=== PATIENT | female | born 1935 | race Caucasian/White ===

== ENCOUNTER → 2017-10-11 15:15 | Outpatient (REF) | payer MEDICARE, SELFPAY ==
[2017-10-11 15:42] LABS: COMMENT (LAB VIEW ONLY) 95.92 mg/dL; Microalb ug/mg Crea 6.2 ug/mg Cr
== END ==
LOC: LBN 15:15
PROVIDERS: PCP Nurse Practitioner; Visit Provider Nurse Practitioner
DX: E11.40 Type 2 diabetes mellitus with diabetic neuropathy, unspecified (principal); I10 Essential (primary) hypertension
CPT/HCPCS: 82043; 82570

== ENCOUNTER 2017-10-12 11:04 | Outpatient (RCR) | payer MEDICARE, SELFPAY | END 2017-10-14 23:59 | disposition home or self-care (01) | LOC: CR 11:04 | PROVIDERS: PCP Nurse Practitioner; Visit Provider Family Medicine | DX: I25.10 Atherosclerotic heart disease of native coronary artery without angina pectoris (principal); Z95.5 Presence of coronary angioplasty implant and graft; Z51.89 Encounter for other specified aftercare | CPT/HCPCS: S9472 ==

== ENCOUNTER 2017-11-11 13:19 | Outpatient (RCR) | payer MEDICARE, SELFPAY | END 2017-11-13 23:59 | disposition home or self-care (01) | LOC: CR 13:19 | PROVIDERS: PCP Nurse Practitioner; Visit Provider Family Medicine | DX: I25.10 Atherosclerotic heart disease of native coronary artery without angina pectoris (principal); Z95.5 Presence of coronary angioplasty implant and graft; Z51.89 Encounter for other specified aftercare | CPT/HCPCS: S9472 ==

== ENCOUNTER 2018-03-15 15:16 | Outpatient (CLI) | payer MEDICARE, SELFPAY ==
--- NOTE | 2018-03-15 14:15 | DI.RAD_ITS ---
SYMPTOMS/DIAGNOSIS: RIGHT KNEE PAIN, SWELLING, EFFUSION, M25.461, M25.561 RIGHT KNEE: Five views were obtained. There is narrowing of the medial tibiofemoral cartilaginous joint space. There is hypertrophic spurring of the bones of the knee, most prominent at the medial tibiofemoral joint and the superior patellar pole. No other significant bony abnormality seen. CONCLUSION: DJD, predominantly involving medial tibiofemoral joint.
== END 2018-03-15 15:36 ==
PROVIDERS: PCP Nurse Practitioner; Visit Provider Nurse Practitioner
DX: M25.561 Pain in right knee (principal); M25.461 Effusion, right knee; M17.11 Unilateral primary osteoarthritis, right knee
CPT/HCPCS: 73564

== ENCOUNTER → 2018-04-05 10:10 | Outpatient (BNVA) | payer MEDICARE, SELFPAY | PROVIDERS: PCP Nurse Practitioner; Referring Provider Nurse Practitioner; Visit Provider Orthopaedic Surgery | DX: M17.11 Unilateral primary osteoarthritis, right knee (principal); J44.9 Chronic obstructive pulmonary disease, unspecified; Z87.891 Personal history of nicotine dependence | CPT/HCPCS: 20610; 99204; 99214; J1040 ==

== ENCOUNTER 2018-04-11 09:58 | Outpatient (CLI) | payer MEDICARE, SELFPAY ==
[2018-04-11 10:19] LABS: HCT 36.8 % (36.0-46.0); HGB 12.4 g/dL (12.0-15.5); Mean Corp. HGB Concentration 33.7 g/dL (32.0-36.0); Mean Corpuscular Hemoglobin 29.7 pg (27.0-33.0); Mean Corpuscular Volume 88.2 fL (80-95); Platelet Count 194 x1000/uL (130-400); RBC 4.17 m/cumm (4.00-5.20); RBC Distribution Width 13.3 % (11.7-14.6); White Blood Cell Count 6.23 k/cumm (4.4-10.8)
[2018-04-11 11:33] LABS: ALT 37 U/L (12-78); AST 14 U/L (15-37); Albumin 3.4 g/dL (3.4-5.0); Alkaline Phosphatase 103 U/L (46-116); Anion Gap 8.2 mmol/L (3-11); BUN 11 mg/dL (7-18); Bilirubin, Total 0.5 mg/dL (0.2-1.0); CO2 30.8 mmol/L (21.0-32.0); CREATININE 1.05 mg/dL (0.55-1.02); Calcium 8.8 mg/dL (8.5-10.1); Chloride 105 mmol/L (98-107); Cholesterol 155 mg/dL (50-200); Glucose 97 mg/dL (70-100); HDL Cholesterol 36 mg/dL (40-60); LDL CHOLESTEROL 80 mg/dL (<100); Potassium 3.9 mmol/L (3.5-5.1); Sodium 144 mmol/L (136-145); Total Protein 6.6 g/dL (6.4-8.2); Triglyceride 192 mg/dL (30-150); Vitamin B12 489 pg/mL (193-986)
== END 2018-04-11 10:18 ==
PROVIDERS: PCP Nurse Practitioner; Visit Provider Nurse Practitioner
DX: E78.5 Hyperlipidemia, unspecified (principal); I10 Essential (primary) hypertension; E11.40 Type 2 diabetes mellitus with diabetic neuropathy, unspecified; G62.89 Other specified polyneuropathies
CPT/HCPCS: 36415; 80053; 80061; 83721; 85027; 82607

== ENCOUNTER 2018-05-03 09:13 | Outpatient (CLI) | payer MEDICARE, SELFPAY ==
--- NOTE | 2018-05-03 09:49 | DI.RAD_ITS ---
SYMPTOM/DIAGNOSIS: COUGH, SOB, NAUSEA, R11.0, R05 PA AND LATERAL CHEST: Comparison is made with 04/04/17. Heart size and pulmonary vasculature are within normal limits. There is unchanged elevation of the right hemidiaphragm. The lungs are clear. No effusions or pneumothoraces are identified. Age appropriate degenerative changes are seen in the spine. IMPRESSION: No acute pulmonary process.
== END 2018-05-03 09:33 ==
PROVIDERS: PCP Nurse Practitioner; Visit Provider Nurse Practitioner
DX: R05 Cough (principal); R06.02 Shortness of breath; R11.0 Nausea
CPT/HCPCS: 71046

== ENCOUNTER → 2018-06-07 10:46 | Outpatient (BNVA) | payer MEDICARE, SELFPAY | PROVIDERS: PCP Nurse Practitioner; Referring Provider Nurse Practitioner; Visit Provider Orthopaedic Surgery | DX: M17.11 Unilateral primary osteoarthritis, right knee (principal); I10 Essential (primary) hypertension; E11.40 Type 2 diabetes mellitus with diabetic neuropathy, unspecified; Z79.4 Long term (current) use of insulin; J44.9 Chronic obstructive pulmonary disease, unspecified; Z87.891 Personal history of nicotine dependence | CPT/HCPCS: 99213 ==

== ENCOUNTER 2018-06-12 08:09 | Inpatient (IN) | payer MEDICARE, SELFPAY ==
[2018-06-12] VITALS (30 sets, daily range): BP systolic 126–191; BP diastolic 56–98; PULSE 60–102; RESP 17–22; TEMP 36–37.4; O2SAT 94–100
--- NOTE | 2018-06-12 08:30 | W.ED.GENAD ---
Discharge Plan Disposition Condition: Improving Discharge Details Chief Complaint: Abd Prob Admit Date/Time: 06/12/18 11:57 Admit Provider: Jona Dickey Attending Provider: Jona Dickey Primary Care Provider: Savanna Guillen ED Provider: Essence Peterson Discharge Instructions Activity:: Activity as Tolerated Equipment/Supplies:: No Equipment Needed Diet:: Carb Counting Discharge Orders Discharge Orders: Discharge Order (Routine); Ordered 06/15/18 Ordered By: Petra Borrego Discharge Data Discharge Date/Time-TO BE ENTERED AT DEPARTURE: 06/12/18 12:43 Medical Decision Making Sonia Quiroz is an 82-year-old woman with a history of urinary incontinence status post placement of bladder stimulator unit, coronary artery disease, GERD, insulin dependent diabetes, hypertension, chronic kidney disease who presented to the emergency department with lower abdominal pain and rectal bleeding. On exam patient is well and nontoxic appearing. She has mild tenderness across the lower abdomen without peritoneal signs. She has a small amount of gross blood (Hemoccult positive) and an otherwise normal rectal exam. Concern for rectal bleeding of unknown etiology, colitis versus diverticulitis versus other, metabolic/lyte derangement, anemia. Exam/history is not this with mesenteric ischemia, sepsis, upper GI bleed at this time. Plan for screening labs, CT abdomen pelvis, telemetry. Will monitor and reassess. Hemoglobin okay. CT shows colitis versus diverticulitis per radiology. I discussed the patient with Dr. Jaramillo, who relayed that she felt most likely diagnosis infectious colitis, imaging results, patient presentation not consistent with ischemic colitis. No surgical intervention at this time, recommended IV antibiotics. Patient penicillin allergic, plan for Levaquin and Flagyl as opposed to Unasyn. Plan for admission. Patient is amenable to the plan. Clinical Impression: colitis, JEMIMA Disposition: [facility] inpatient Medical Records Medical records reviewed: Yes I reviewed the patient's medical records. Imaging Data Radiologic Study: Radiologist's impression: ABDOMEN AND PELVIC CT; CT scan of the abdomen and pelvis was performed without intravenous or oral contrast material. Comparison is made with 11/04/16. The visualized lung bases show no acute abnormality. Lack of IV contrast does limit evaluation of the abdominal and pelvic organs. The unenhanced liver is grossly unremarkable. The gallbladder is negative. No biliary ductal dilatation is seen. The pancreas, spleen, adrenal glands, kidneys, ureters and bladder are unremarkable. The reproductive organs show no acute abnormality. There is diverticulosis seen in the descending and sigmoid colon. There is bowel wall thickening and pericolonic inflammatory change seen in the distal transverse colon and proximal and mid descending colon consistent with colitis. Diverticulitis cannot be excluded. The remainder of the bowel is unremarkable. No findings to suggest an acute appendicitis are present. There is atherosclerosis of the abdominal aorta but no aneurysmal dilatation is seen. No focal fluid collection is seen to suggest an abscess. No significant abdominal or pelvic adenopathy or ascites or pneumoperitoneum is present. There is a battery pack in the soft tissues of the left flank. Degenerative changes are seen in the spine. IMPRESSION: Bowel wall thickening and pericolonic changes seen in the distal transverse colon and proximal descending colon consistent with colitis. Diverticula are noted in the region and acute diverticulitis cannot be excluded. No abscess or free air is seen. The findings were discussed with the ER on the date of the examination. Lab Data Lab results reviewed: Yes I reviewed the patient's lab results. HPI General Mode of arrival: ambulatory. Date/Time Provider Initiated Documentation: 06/12/18 08:30. Limitations to Documentation: no limitations. Information obtained by: patient, RN notes reviewed and old records reviewed. HPI Narrative: Sonia Quiroz is an 82-year-old woman with a history of urinary incontinence status post placement of bladder stimulator unit, coronary artery disease, GERD, insulin dependent diabetes, hypertension, chronic kidney disease presenting to the emergency department with lower abdominal pain and rectal bleeding. Patient reports that late last night she developed pain across her lower abdomen. She had several episodes of vomiting in the night with yellow emesis. Patient also developed some blood in her stool during a bowel movement last night, and then had several episodes where she felt she needed to have a BM and passed only bright red blood with small clots. Patient reports that her pain right now is mild. She has no rectal pain. She has never had similar rectal bleeding in the past. She takes Plavix and aspirin, no other blood thinners. Has been eating and drinking as usual, although she did have fish yesterday and was concerned that symptoms may represent gastroenteritis. No other pain, no fevers, no shortness of breath, no cough. Feels otherwise in her usual state of health. Related Data Home Medications Medication Instructions Recorded Confirmed blood-glucose meter [OneTouch #1 kit 08/15/15 06/22/18 Ultra2] nitroglycerin [Nitrostat] 0.4 mg SUBLINGUAL Q5 MIN PRN X3 08/29/17 06/22/18 PRN #1 bottle nortriptyline 10 mg capsule 10 mg PO HS #90 cap 02/13/18 06/26/18 albuterol sulfate HFA 90 1 - 2 puff INHALATION Q4H PRN #1 03/28/18 06/22/18 mcg/actuation aerosol inhaler inhaler lovastatin 10 mg tablet 10 mg PO DAILY #90 tab-cap 04/17/18 06/26/18 oxybutynin chloride ER 5 mg 5 mg PO DAILY #90 tab 04/17/18 06/26/18 tablet,extended release 24 hr pen needle, diabetic 32 gauge x #90 box 05/18/18 06/22/18 ranitidine 150 mg tablet 150 mg PO BID #180 tab-cap 05/29/18 06/22/18 aspirin 81 mg tablet,delayed 81 mg PO DAILY 06/22/18 06/26/18 release blood sugar diagnostic strips #100 each 06/22/18 06/22/18 insulin glargine (U-100) 100 38 unit SUB-Q HS ml 06/22/18 06/26/18 unit/mL (3 mL) subcutaneous pen lancets #100 ea 06/22/18 06/22/18 lisinopril 5 mg tablet 5 mg PO DAILY 3 Days #90 tab-cap 06/22/18 06/26/18 metoprolol tartrate 25 mg tablet 25 mg PO BID #180 tab 06/22/18 06/22/18 pantoprazole 40 mg tablet,delayed 40 mg PO DAILY #90 tab 06/22/18 06/22/18 release pregabalin 100 mg capsule 100 mg PO BID #60 cap 06/22/18 06/22/18 Previous Rx's Medication Instructions Recorded nortriptyline 10 mg capsule 10 mg PO HS #90 cap 02/13/18 albuterol sulfate HFA 90 1 - 2 puff INHALATION Q4H PRN #1 03/28/18 mcg/actuation aerosol inhaler inhaler lovastatin 10 mg tablet 10 mg PO DAILY #90 tab-cap 04/17/18 oxybutynin chloride ER 5 mg 5 mg PO DAILY #90 tab 04/17/18 tablet,extended release 24 hr pen needle, diabetic 32 gauge x #90 box 05/18/18 ranitidine 150 mg tablet 150 mg PO BID #180 tab-cap 05/29/18 blood sugar diagnostic strips #100 each 06/22/18 lancets #100 ea 06/22/18 lisinopril 5 mg tablet 5 mg PO DAILY 3 Days #90 tab-cap 06/22/18 metoprolol tartrate 25 mg tablet 25 mg PO BID #180 tab 06/22/18 pantoprazole 40 mg tablet,delayed 40 mg PO DAILY #90 tab 06/22/18 release pregabalin 100 mg capsule 100 mg PO BID #60 cap 06/22/18 Allergies Allergy/AdvReac Type Severity Reaction Status Date / Time Penicillins Allergy Severe skin rash Verified 06/26/18 06:27 atorvastatin AdvReac Intermediate muscle Verified 06/26/18 06:27 aches metformin AdvReac Intermediate Diarrhea Verified 06/26/18 06:27 General Stated Complaint: Abd Prob RAFAELA: 3 Review of Systems Review of Systems Constitutional: denies fevers Eyes: denies eye pain ENT: denies facial pain, dental pain, sore throat Cardiovascular: denies chest pain, edema Respiratory: denies SOB, cough GI: reports abdominal pain, vomiting, BRBPR, denies melena, diarrhea, constipation : denies flank pain MSK: denies back pain, neck pain, arthralgias, myalgias Skin: denies rash Neuro: denies headaches, numbness, weakness PFSH Medical History Heart murmur (Acute) History of rheumatic fever (Acute) Tendonitis of left rotator cuff (Acute) COPD (chronic obstructive pulmonary disease) Rectal bleed (Acute) Colitis (Acute) JEMIMA (acute kidney injury) (Acute) Primary osteoarthritis of right knee (Chronic) Urinary incontinence (Acute 06/05/14) Tinnitus of both ears (Acute 09/26/14) Syncope (Acute 05/15/14) Skin lesion of left ear (Acute 10/31/15) Sensorineural hearing loss, bilateral (Acute 09/13/13) Sciatica (Acute 02/19/11) Primary osteoarthritis involving multiple joints (Acute 10/30/14) Positive cardiac stress test (Acute 06/30/17) Osteopenia (Acute 02/19/11) Hyperlipidemia (Acute 02/19/11) Gastroesophageal reflux disease (Acute 02/19/11) Gastritis, chronic (Acute 12/13/16) Fibromyalgia (Acute 12/18/14) Essential hypertension (Chronic 07/27/12) Edema (Acute 09/05/15) Diverticulitis of colon (Acute 02/19/11) Diabetic neuropathy (Chronic 01/24/14) Diabetes mellitus with neuropathy (Chronic) Atherosclerosis of [place] coronary artery of [place] heart with angina pectoris (Acute) Angina at rest (Acute 02/19/11) CAD (coronary artery disease) (Chronic) Old myocardial infarction (Chronic) GERD (gastroesophageal reflux disease) (Chronic) Type 2 diabetes mellitus (Chronic) Diabetic neuropathy (Chronic) H/O diverticulitis of colon (Chronic) Hypertension (Chronic) Hearing loss of both ears (Chronic) Tinnitus (Chronic) Osteoporosis (Chronic) Sciatica (Chronic) Chest pain (Acute 04/28/14) Syncope (Acute 04/28/14) Chronic kidney disease, stage III (moderate) (Chronic) Surgical History S/P right knee arthroscopy (Acute) Extraction of cataract Colonoscopy - MAC (12/13/16) Coronary Stent (07/12/17) EGD - MAC (12/13/16) Tonsillectomy Postsurgical percutaneous transluminal coronary angioplasty status (Chronic) Family History Mother No problems noted. 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 Working smoke detector in home: Yes Fire extinguisher in home: Yes Carbon monox detector in home: Yes Do you feel safe in your relationship?: Yes Exam Narrative Exam Narrative: Constitutional: well and [id number], pleasant, conversing normally HENT: head atraumatic/normocephalic/normal inspection, mucous membranes moist Eyes: conjunctiva normal, sclera normal, pupils 3mm b/l Neck: no stridor, normal ROM, trachea midline Chest: normal inspection Resp: normal work of breathing, LCTAB Cardio: normal rate, normal rhythm, no murmur appreciated GI: abdomen soft, mild tenderness across the lower abdomen, no rebound or guarding, non-distended, small amount of gross blood on rectal exam Back: normal inspection, no rash Skin: warm, dry, normal color, no rash Neuro: alert, not altered, grossly non-focal, normal tone Ext: no edema Psych: normal mood, normal affect, normal behavior Course Vital Signs Temperature 36 C L 06/12/18 08:18 Pulse 61 06/12/18 08:18 Respiratory Rate 21 06/12/18 08:18 Blood Pressure 181/56 H 06/12/18 08:18 Pulse Oximetry 95 06/12/18 08:18 Temperature 36 C L 06/12/18 08:18 Temperature Source Skin 06/12/18 08:18 Pulse 61 06/12/18 08:18 Respiratory Rate 21 06/12/18 08:18 Respiratory Effort Non-Labored 06/12/18 08:18 Blood Pressure 181/56 H 06/12/18 08:18 Blood Pressure Position Sitting 06/12/18 08:18 Pulse Oximetry 95 06/12/18 08:18 Oxygen Delivery Method Room Air 06/12/18 08:18 Oxygen Flow Rate 0 06/12/18 08:18 Pain Level 5 06/12/18 08:18
--- NOTE | 2018-06-12 08:42 | DI.CT_ITS ---
SYMPTOM/DIAGNOSIS: ABD PAIN, VOMITING ABDOMEN AND PELVIC CT; CT scan of the abdomen and pelvis was performed without intravenous or oral contrast material. Comparison is made with 11/04/16. The visualized lung bases show no acute abnormality. Lack of IV contrast does limit evaluation of the abdominal and pelvic organs. The unenhanced liver is grossly unremarkable. The gallbladder is negative. No biliary ductal dilatation is seen. The pancreas, spleen, adrenal glands, kidneys, ureters and bladder are unremarkable. The reproductive organs show no acute abnormality. There is diverticulosis seen in the descending and sigmoid colon. There is bowel wall thickening and pericolonic inflammatory change seen in the distal transverse colon and proximal and mid descending colon consistent with colitis. Diverticulitis cannot be excluded. The remainder of the bowel is unremarkable. No findings to suggest an acute appendicitis are present. There is atherosclerosis of the abdominal aorta but no aneurysmal dilatation is seen. No focal fluid collection is seen to suggest an abscess. No significant abdominal or pelvic adenopathy or ascites or pneumoperitoneum is present. There is a battery pack in the soft tissues of the left flank. Degenerative changes are seen in the spine. IMPRESSION: Bowel wall thickening and pericolonic changes seen in the distal transverse colon and proximal descending colon consistent with colitis. Diverticula are noted in the region and acute diverticulitis cannot be excluded. No abscess or free air is seen. The findings were discussed with the ER on the date of the examination.
--- NOTE | 2018-06-12 08:49 | ED.GENADUL_ITS ---
Discharge Plan Disposition Condition: Improving Discharge Details Chief Complaint: Abd Prob Admit Date/Time: 06/12/18 11:57 Admit Provider: Jona Dickey Attending Provider: Jona Dickey Primary Care Provider: Savanna Guillen ED Provider: Essence Peterson Discharge Instructions Activity:: Activity as Tolerated Equipment/Supplies:: No Equipment Needed Diet:: Carb Counting Discharge Orders Discharge Orders: Discharge Order (Routine); Ordered 06/15/18 Ordered By: Petra Borrego Discharge Data Discharge Date/Time-TO BE ENTERED AT DEPARTURE: 06/12/18 12:43 Medical Decision Making Sonia Quiroz is an 82-year-old woman with a history of urinary incontinence status post placement of bladder stimulator unit, coronary artery disease, GERD, insulin dependent diabetes, hypertension, chronic kidney disease who presented to the emergency department with lower abdominal pain and rectal bleeding. On exam patient is well and nontoxic appearing. She has mild tenderness across the lower abdomen without peritoneal signs. She has a small amount of gross blood (Hemoccult positive) and an otherwise normal rectal exam. Concern for rectal bleeding of unknown etiology, colitis versus diverticulitis versus other, metabolic/lyte derangement, anemia. Exam/history is not this with mesenteric i schemia, sepsis, upper GI bleed at this time. Plan for screening labs, CT abdomen pelvis, telemetry. Will monitor and reassess. Hemoglobin okay. CT shows colitis versus diverticulitis per radiology. I discussed the patient with Dr. Jaramillo, who relayed that she felt most likely diagnosis infectious colitis, imaging results, patient presentation not consistent with ischemic colitis. No surgical intervention at this time, recommended IV antibiotics. Patient penicillin allergic, plan for Levaquin and Flagyl as opposed to Unasyn. Plan for admission. Patient is amenable to the plan. Clinical Impression: colitis, JEMIMA Disposition: [facility] inpatient Medical Records Medical records reviewed: Yes I reviewed the patient's medical records. Imaging Data Radiologic Study: Radiologist's impression: ABDOMEN AND PELVIC CT; CT scan of the abdomen and pelvis was performed without intravenous or oral contrast material. Comparison is made with 11/04/16. The visualized lung bases show no acute abnormality. Lack of IV contrast does limit evaluation of the abdominal and pelvic organs. The unenhanced liver is grossly unremarkable. The gallbladder is negative. No biliary ductal dilatation is seen. The pancreas, spleen, adrenal glands, kidneys, ureters and bladder are unremarkable. The reproductive organs show no acute abnormality. There is diverticulosis seen in the descending and sigmoid colon. There is bowel wall thickening and pericolonic inflammatory change seen in the distal transverse colon and proximal and mid descending colon consistent with colitis. Diverticulitis cannot be excluded. The remainder of the bowel is unremarkable. No findings to suggest an acute appendicitis are present. There is atherosclerosis of the abdominal aorta but no aneurysmal dilatation is seen. No focal fluid collection is seen to suggest an abscess. No significant abdominal or pelvic adenopathy or ascites or pneumoperitoneum is present. There is a battery pack in the soft tissues of the left flank. Degenerative changes are seen in the spine. IMPRESSION: Bowel wall thickening and pericolonic changes seen in the distal transverse colon and proximal descending colon consistent with colitis. Diverticula are noted in the region and acute diverticulitis cannot be excluded. No abscess or free air is seen. The findings were discussed with the ER on the date of the examination. Lab Data Lab results reviewed: Yes I reviewed the patient's lab results. HPI General Mode of arrival: ambulatory . Date/Time Provider Initiated Documentation: 06/12/18 08:30 . Limitations to Documentation: no limitations . Information obtained by: patient, RN notes reviewed and old records reviewed . HPI Narrative: Sonia Quiroz is an 82-year-old woman with a history of urinary incontinence status post placement of bladder stimulator unit, coronary artery disease, GERD, insulin dependent diabetes, hypertension, chronic kidney disease presenting to the emergency department with lower abdominal pain and rectal bleeding. Patient reports that late last night she developed pain across her lower abdomen. She had several episodes of vomiting in the night with yellow emesis. Patient also developed some blood in her stool during a bowel movement last night, and then had several episodes where she felt she needed to have a BM and passed only bright red blood with small clots. Patient reports that her pain right now is mild. She has no rectal pain. She has never had similar rectal bleeding in the past. She takes Plavix and aspirin, no other blood thinners. Has been eating and drinking as usual, although she did have fish yesterday and was concerned that symptoms may represent gastroenteritis. No other pain, no fevers, no shortness of breath, no cough. Feels otherwise in her usual state of health. Related Data Home Medications Medication Instructions Recorded Confirmed blood-glucose meter [OndoreTouch #1 kit 08/15/15 06/22/18 Ultra2] nitroglycerin [Nitrostat] 0.4 mg SUBLINGUAL Q5 MIN PRN X3 08/29/17 06/22/18 PRN #1 bottle nortriptyline 10 mg capsule 10 mg PO HS #90 cap 02/13/18 06/26/18 albuterol sulfate HFA 90 1 - 2 puff INHALATION Q4H PRN #1 03/28/18 06/22/18 mcg/actuation aerosol inhaler inhaler lovastatin 10 mg tablet 10 mg PO DAILY #90 tab-cap 04/17/18 06/26/18 oxybutynin chloride ER 5 mg 5 mg PO DAILY #90 tab 04/17/18 06/26/18 tablet,extended release 24 hr pen needle, diabetic 32 gauge x #90 box 05/18/18 06/22/18 ranitidine 150 mg tablet 150 mg PO BID #180 tab-cap 05/29/18 06/22/18 aspirin 81 mg tablet,delayed 81 mg PO DAILY 06/22/18 06/26/18 release blood sugar diagnostic strips #100 each 06/22/18 06/22/18 insulin glargine (U-100) 100 38 unit SUB-Q HS ml 06/22/18 06/26/18 unit/mL (3 mL) subcutaneous pen lancets #100 ea 06/22/18 06/22/18 lisinopril 5 mg tablet 5 mg PO DAILY 3 Days #90 tab-cap 06/22/18 06/26/18 metoprolol tartrate 25 mg tablet 25 mg PO BID #180 tab 06/22/18 06/22/18 pantoprazole 40 mg tablet,delayed 40 mg PO DAILY #90 tab 06/22/18 06/22/18 release pregabalin 100 mg capsule 100 mg PO BID #60 cap 06/22/18 06/22/18 Previous Rx's Medication Instructions Recorded nortriptyline 10 mg capsule 10 mg PO HS #90 cap 02/13/18 albuterol sulfate HFA 90 1 - 2 puff INHALATION Q4H PRN #1 03/28/18 mcg/actuation aerosol inhaler inhaler lovastatin 10 mg tablet 10 mg PO DAILY #90 tab-cap 04/17/18 oxybutynin chloride ER 5 mg 5 mg PO DAILY #90 tab 04/17/18 tablet,extended release 24 hr pen needle, diabetic 32 gauge x #90 box 05/18/18 ranitidine 150 mg tablet 150 mg PO BID #180 tab-cap 05/29/18 blood sugar diagnostic strips #100 each 06/22/18 lancets #100 ea 06/22/18 lisinopril 5 mg tablet 5 mg PO DAILY 3 Days #90 tab-cap 06/22/18 metoprolol tartrate 25 mg tablet 25 mg PO BID #180 tab 06/22/18 pantoprazole 40 mg tablet,delayed 40 mg PO DAILY #90 tab 06/22/18 release pregabalin 100 mg capsule 100 mg PO BID #60 cap 06/22/18 Allergies Allergy/AdvReac Type Severity Reaction Status Date / Time Penicillins Allergy Severe skin rash Verified 06/26/18 06:27 atorvastatin AdvReac Intermediate muscle Verified 06/26/18 06:27 aches metformin AdvReac Intermediate Diarrhea Verified 06/26/18 06:27 General Stated Complaint: Abd Prob RAFAELA: 3 Review of Systems Review of Systems Constitutional: denies fevers Eyes: denies eye pain ENT: denies facial pain, dental pain, sore throat Cardiovascular: denies chest pain, edema Respiratory: denies SOB, cough GI: reports abdominal pain, vomiting, BRBPR, denies melena, diarrhea, constipation : denies flank pain MSK: denies back pain, neck pain, arthralgias, myalgias Skin: denies rash Neuro: denies headaches, numbness, weakness PFSH Medical History Heart murmur (Acute) History of rheumatic fever (Acute) Tendonitis of left rotator cuff (Acute) COPD (chronic obstructive pulmonary disease) Rectal bleed (Acute) Colitis (Acute) JEMIMA (acute kidney injury) (Acute) Primary osteoarthritis of right knee (Chronic) Urinary incontinence (Acute 06/05/14) Tinnitus of both ears (Acute 09/26/14) Syncope (Acute 05/15/14) Skin lesion of left ear (Acute 10/31/15) Sensorineural hearing loss, bilateral (Acute 09/13/13) Sciatica (Acute 02/19/11) Primary osteoarthritis involving multiple joints (Acute 10/30/14) Positive cardiac stress test (Acute 06/30/17) Osteopenia (Acute 02/19/11) Hyperlipidemia (Acute 02/19/11) Gastroesophageal reflux disease (Acute 02/19/11) Gastritis, chronic (Acute 12/13/16) Fibromyalgia (Acute 12/18/14) Essential hypertension (Chronic 07/27/12) Edema (Acute 09/05/15) Diverticulitis of colon (Acute 02/19/11) Diabetic neuropathy (Chronic 01/24/14) Diabetes mellitus with neuropathy (Chronic) Atherosclerosis of [place] coronary artery of [place] heart with angina pectoris (Acute) Angina at rest (Acute 02/19/11) CAD (coronary artery disease) (Chronic) Old myocardial infarction (Chronic) GERD (gastroesophageal reflux disease) (Chronic) Type 2 diabetes mellitus (Chronic) Diabetic neuropathy (Chronic) H/O diverticulitis of colon (Chronic) Hypertension (Chronic) Hearing loss of both ears (Chronic) Tinnitus (Chronic) Osteoporosis (Chronic) Sciatica (Chronic) Chest pain (Acute 04/28/14) Syncope (Acute 04/28/14) Chronic kidney disease, stage III (moderate) (Chronic) Surgical History S/P right knee arthroscopy (Acute) Extraction of cataract Colonoscopy - MAC (12/13/16) Coronary Stent (07/12/17) EGD - MAC (12/13/16) Tonsillectomy Postsurgical percutaneous transluminal coronary angioplasty status (Chronic) Family History Mother No problems noted. Father Heart disease Sister Breast cancer Social History Smoking/Tobacco Use Status: Former Tobacco Use Alcohol Intake: current Alcohol Intake frequency: holidays/special occasions only Drug use: Never Household members: other What type of physical activity do you participate in: none Seatbelt use: always Drive intox or ride w/intox line driver: No Working smoke detector in home: Yes Fire extinguisher in home: Yes Carbon monox detector in home: Yes Do you feel safe in your relationship?: Yes Exam Narrative Exam Narrative: Constitutional: well and [id number], pleasant, conversing normally HENT: head atraumatic/normocephalic/normal inspection, mucous membranes moist Eyes: conjunctiva normal, sclera normal, pupils 3mm b/l Neck: no stridor, normal ROM, trachea midline Chest: normal inspection Resp: normal work of breathing, LCTAB Cardio: normal rate, normal rhythm, no murmur appreciated GI: abdomen soft, mild tenderness across the lower abdomen, no rebound or guarding, non-distended, small amount of gross blood on rectal exam Back: normal inspection, no rash Skin: warm, dry, normal color, no rash Neuro: alert, not altered, grossly non-focal, normal tone Ext: no edema Psych: normal mood, normal affect, normal behavior Course Vital Signs Temperature 36 C L 06/12/18 08:18 Pulse 61 06/12/18 08:18 Respiratory Rate 21 06/12/18 08:18 Blood Pressure 181/56 H 06/12/18 08:18 Pulse Oximetry 95 06/12/18 08:18 Temperature 36 C L 06/12/18 08:18 Temperature Source Skin 06/12/18 08:18 Pulse 61 06/12/18 08:18 Respiratory Rate 21 06/12/18 08:18 Respiratory Effort Non-Labored 06/12/18 08:18 Blood Pressure 181/56 H 06/12/18 08:18 Blood Pressure Position Sitting 06/12/18 08:18 Pulse Oximetry 95 06/12/18 08:18 Oxygen Delivery Method Room Air 06/12/18 08:18 Oxygen Flow Rate 0 06/12/18 08:18 Pain Level 5 06/12/18 08:18
[2018-06-12 09:14] LABS: Abs Immature Grans 0.02 k/cumm (0.0-0.09); Absolute Basophil Count 0.03 k/cumm (0.0-0.2); Absolute Eosinophil Count 0.01 k/cumm (0.0-0.7); Absolute Lymphocyte Count 1.09 k/cumm (1.2-3.4); Absolute Monocyte Count 0.82 k/cumm (0.11-0.7); Absolute Neutrophil Count 10.59 k/cumm (1.2-6.7); Basophils % 0.2; Eosinophils % 0.1; HCT 39.5 % (36.0-46.0); HGB 13.6 g/dL (12.0-15.5); Immature Grans % 0.2; Lymphocytes % 8.7; Mean Corp. HGB Concentration 34.4 g/dL (32.0-36.0); Mean Corpuscular Hemoglobin 29.8 pg (27.0-33.0); Mean Corpuscular Volume 86.4 fL (80-95); Mean Platelet Volume 10.8 fL (8.0-11.0); Monocytes % 6.5; Neutrophils % 84.3; Platelet Count 194 x1000/uL (130-400); RBC 4.57 m/cumm (4.00-5.20); RBC Distribution Width 13.2 % (11.7-14.6); White Blood Cell Count 12.56 k/cumm (4.4-10.8)
[2018-06-12 09:22] LABS: Prothrombin Time 9.9 sec (9.3-11.0)
[2018-06-12 09:24] LABS: ALT 23 U/L (12-78); AST 19 U/L (15-37); Albumin 3.4 g/dL (3.4-5.0); Alkaline Phosphatase 117 U/L (46-116); Anion Gap 9.5 mmol/L (3-11); BUN 19 mg/dL (7-18); Bilirubin, Total 0.8 mg/dL (0.2-1.0); CO2 27.5 mmol/L (21.0-32.0); CREATININE 1.31 mg/dL (0.55-1.02); Chloride 100 mmol/L (98-107); Estimated GFR 38.97 (mL/min/1.73m2); Glucose 301 mg/dL (70-100); Potassium 4.6 mmol/L (3.5-5.1); Sodium 137 mmol/L (136-145); Total Protein 7.3 g/dL (6.4-8.2)
[2018-06-12 09:32] LABS: Bilirubin Negative (Negative); Blood Small (Negative); Clarity Clear; Glucose 500 mg/dL (Negative); Ketones Negative (Negative); Leukocyte Esterase Negative (Negative); Nitrite Negative (Negative); Specific Gravity 1.025 (1.005-1.025); Urobilinogen 0.2 EU/dL (Up TO 0.2); pH 5.5 (5-8)
[2018-06-12 09:47] LABS: Bacteria Rare HPF (Negative); C & S Indicated? No; Casts Negative LPF (Negative); Crystals Negative HPF (Negative); Epithelial Cells Few HPF (Negative); Mucus Moderate (Negative); WBC 0-2 HPF (0-5)
--- NOTE | 2018-06-12 11:34 | NUR.NOTE ---
Addendum entered by Karen Butts 06/12/18 11:36: aware Original Note: Pt felt like she had some rectal leaking while standing up in radiology ambulated to bathroom where she had significant bright red blood from the rectum stating it wouldn't stop Nursing Note:
[2018-06-12] MEDS: Metoprolol 25 MG TAB PO ×2 (12:03→23:38)
[2018-06-12 12:04] LABS: Lactate-non-spesis 3.4 mmol/l (0.6-1.4)
[2018-06-12] MEDS: levoFLOXacin 750 MG/150 ML BAG 100 MG IVPB (12:04)
[2018-06-12] MEDS: Insulin Aspart 300 UNITS/3 ML PEN SC ×2 (13:22→16:58)
[2018-06-12] MEDS: metroNIDAZOLE 500 MG/100 ML BAG 100 MG IVPB ×2 (13:24→21:56)
[2018-06-12] MEDS: SODIUM CHLORIDE 0.45% 1,000 ML 100 ML IV ×2 (13:25→23:14)
--- NOTE | 2018-06-12 16:32 | W.PM.HP.N ---
Date of service: 06/12/18 Time of Service: 16:33 Assessment and Plan (1) Colitis: Start date: 06/12/18 Start time: 16:58 Current visit: Yes Status: Acute Severe abdominal pain presents at 1 am with vomiting followed by bloody bowel movement and then bright red rectal bleeding. Ct of the abdomen reveals Bowel wall thickening and pericolonic changes seen in the distal transverse colon and proximal descending colon consistent with colitis. Diverticula are noted in the region and acute diverticulitis cannot be excluded. No abscess or free air is seen. She has been admitted to /s started on flagyl and levaquin wbc elevated without fever. Clear liquid diet initiated. Pain is minimal, plavix and aspirin held. IVF for hydration, monitor hemodynamic stability, h/h. (2) Rectal bleed: Start date: 06/12/18 Start time: 17:01 Current visit: Yes Status: Acute See above, monitor h/h and held plavix and asa. (3) Gastroesophageal reflux disease: Start date: 06/12/18 Start time: 17:02 Current visit: No Status: Acute Protonix po daily and zantac daily (4) Essential hypertension: Start date: 06/12/18 Start time: 17:03 Current visit: No Status: Acute Continue metoprolol (5) JEMIMA (acute kidney injury): Start date: 06/12/18 Start time: 17:04 Current visit: Yes Status: Acute Acute on chronic kidney disease. Elevated in the setting of infection and dehydration with elevated BUN. IVF with light hydration of 1/2 ns at 100 an hour. Continue to monitor status. (6) Type 2 diabetes mellitus: Start date: 06/12/18 Start time: 17:06 Current visit: No Status: Chronic Insulin dependent diabetic, currently on clear liquids AC HS sliding scale with half dose lantus. Continue to monitor. (7) Hyperlipidemia: Start date: 06/12/18 Start time: 17:07 Current visit: No Status: Acute Continue lovastatin (8) CAD (coronary artery disease): Start date: 06/12/18 Start time: 17:07 Current visit: No Status: Chronic History of RI with stent placement in 1999. Nitro as needed (9) DVT prophylaxis: Start date: 06/12/18 Start time: 17:09 Current visit: Yes Status: Acute Chemical prophylaxis is contraindicated in Rectal bleed. TEDs and SCDs for prophylaxis. History of Present Illness Chief Complaint: RECTAL BLEED, COLITIS Narrative: Mrs. Sonia Quiroz is an 82 y.o F with PMH of IDDM, HTN, CKD, CAD and urinary incontinence status post placement of bladder stimulator coming in today after waking up a 1 am with severe lower abdominal pain and rectal bleeding. She had several episodes of vomiting last night with yellow emesis. She developed blood with stool during a bowel movement last night and then had several episodes where she felt she had to have a BM and passed only bright red blood with small clots. She has never had rectal bleeding in the past. She does take plavix and aspirin but no other blood thinners. She was having mild pain in the emergency department. CT of the abdomen revealed bowel wall thickening and periclonic changes seen in the distal transverse colon and proximal descending colon consistent with colitis. Diverticula are noted in the region and acute diverticulitis cannot be excluded. No abscess or free air is seen. She has been asked to be admitted by our service, she will be admitted to M/S. Mrs Quiroz was found to have an elevated WBC in the ED without fever. BUN and creatinine where elevated at 19 and 1.31. Creatinine appears to be chronically elevated at between 1.05 and 1.23 with a slight bump at this admission we will give light hydration of 1/2 NS at 100 mph. Lactate is elevated at 3.4. She was started on levaquin and flagyl in the setting of colitis. Aspirin and plavix are held as she is having rectal bleeding. Protonix daily for GERD. Stool sample for c-diff, lactoferrin and fecal bacterial pathogens have been ordered. She is complaining of mild discomfort to abdomen. She is IDD and will have SSI coverage with a decreased lantus dose at night due to being on clears at this time. Labs will be monitored for h/h, cbc and chemistry. She denies nausea, vomiting at this time, chest pain, shortness of breath. Review of Systems Constitutional Reports system reviewed and no additional complaints, except as docu Eyes Reports system reviewed and no additional complaints, except as docu ENT Reports system reviewed and no additional complaints, except as docu Cardiovascular Reports system reviewed and no additional complaints, except as docu Respiratory Reports system reviewed and no additional complaints, except as docu Gastrointestinal Reports as per HPI, Reports melena and Reports cramping Genitourinary Reports system reviewed and no additional complaints, except [facility] Musculoskeletal Reports system reviewed and no additional complaints, except as [facility] Integumentary/Breasts Reports system reviewed and no additional complaints, except as [facility] Neurologic Reports system reviewed and no additional complaints, except as [facility] Psychiatric Reports system reviewed and no additional complaints, except as [facility] Endocrine Reports system reviewed and no additional complaints, except as [facility] Hematologic/Lymphatic Reports system reviewed and no additional complaints, except as [facility] Allergic/Immunologic Reports system reviewed and no additional complaints, except as [facility] PFSH Medical History Primary osteoarthritis of right knee (Chronic) Urinary incontinence (Acute 06/05/14) Tinnitus of both ears (Acute 09/26/14) Syncope (Acute 05/15/14) Skin lesion of left ear (Acute 10/31/15) Sensorineural hearing loss, bilateral (Acute 09/13/13) Sciatica (Acute 02/19/11) Primary osteoarthritis involving multiple joints (Acute 10/30/14) Positive cardiac stress test (Acute 06/30/17) Osteopenia (Acute 02/19/11) Hyperlipidemia (Acute 02/19/11) Gastroesophageal reflux disease (Acute 02/19/11) Gastritis, chronic (Acute 12/13/16) Fibromyalgia (Acute 12/18/14) Essential hypertension (Acute 07/27/12) Edema (Acute 09/05/15) Diverticulitis of colon (Acute 02/19/11) Diabetic neuropathy (Chronic 01/24/14) Diabetes mellitus with neuropathy (Chronic) Atherosclerosis of [place] coronary artery of [place] heart with angina pectoris (Acute) Angina at rest (Acute 02/19/11) CAD (coronary artery disease) (Chronic) Old myocardial infarction (Chronic) GERD (gastroesophageal reflux disease) (Chronic) Type 2 diabetes mellitus (Chronic) Diabetic neuropathy (Chronic) H/O diverticulitis of colon (Chronic) Hypertension (Chronic) Hearing loss of both ears (Chronic) Tinnitus (Chronic) Osteoporosis (Chronic) Sciatica (Chronic) Chest pain (Acute 04/28/14) Syncope (Acute 04/28/14) Chronic kidney disease, stage III (moderate) (Chronic) COPD (chronic obstructive pulmonary disease) Surgical History Postsurgical percutaneous transluminal coronary angioplasty status (Chronic) Arthroplasty of knee Colonoscopy - MAC (12/13/16) Coronary Stent (07/12/17) EGD - MAC (12/13/16) Extraction of cataract Tonsillectomy Family History Mother No problems noted. Father Heart disease Sister Breast cancer Social History Smoking/Tobacco Use Status: Former Tobacco Use Alcohol Intake: never Drug use: Never Household members: other What type of physical activity do you participate in: none Seatbelt use: always Drive intox or ride w/intox guard driver: No Working smoke detector in home: Yes Fire extinguisher in home: Yes Carbon monox detector in home: Yes Do you feel safe in your relationship?: Yes Meds Home Medications Medication Instructions Recorded Confirmed Type blood-glucose meter [OneTouch #1 kit 08/15/15 06/12/18 History Ultra2] metoprolol tartrate 25 mg PO BID tab 09/05/15 06/12/18 History loperamide [Imodium A-D] 4 mg PO TID PRN #20 cap 11/15/16 06/12/18 History zinc oxide 1 bill TOPICAL QID PRN #28 gm 11/15/16 06/12/18 History Onetouch Ultra Test Strips 1 ea MISCELLANEOUS DAILY #100 strip 08/01/17 06/12/18 Clinic lancets [Onetouch Lancets] #100 ea 08/01/17 06/12/18 Rx nitroglycerin [Nitrostat] 0.4 mg SUBLINGUAL Q5 MIN PRN X3 08/29/17 06/07/18 History PRN #1 bottle Varicella-Zoster Ge/As01b/Pf 50 mcg IM ONCE #1 kit 10/11/17 06/12/18 Clinic [Shingrix Vial Kit] aspirin 81 mg tablet,delayed 81 mg PO DAILY #90 tab 11/08/17 06/12/18 Rx release pantoprazole 40 mg tablet,delayed 40 mg PO DAILY #90 tab 12/27/17 06/12/18 Rx release nortriptyline 10 mg capsule 10 mg PO HS #90 cap 02/13/18 06/12/18 Rx albuterol sulfate HFA 90 1 - 2 puff INHALATION Q4H PRN #1 03/28/18 06/12/18 Rx mcg/actuation aerosol inhaler inhaler lisinopril 5 mg tablet 5 mg PO DAILY 3 Days #90 tab-cap 04/17/18 06/12/18 Rx lovastatin 10 mg tablet 10 mg PO DAILY #90 tab-cap 04/17/18 06/12/18 Rx oxybutynin chloride ER 5 mg 5 mg PO DAILY #90 tab 04/17/18 06/07/18 Rx tablet,extended release 24 hr pregabalin 100 mg capsule 100 mg PO BID #60 cap 04/17/18 06/12/18 Rx insulin glargine (U-100) 100 32 unit SUB-Q HS #5 ml MDD 50 04/25/18 06/12/18 Rx unit/mL (3 mL) subcutaneous pen promethazine 6.25 mg-codeine 10 5 ml PO Q4H PRN #118 ml 04/26/18 06/07/18 Rx mg/5 mL syrup hydrocodone 10 mg-chlorpheniramine 5 ml PO Q12H PRN #115 ml MDD 10ml 05/02/18 06/12/18 Rx 8 mg/5 mL oral susp extend.rel 12hr pen needle, diabetic 32 gauge x #90 box 05/18/18 06/12/18 Rx 5/32 ranitidine 150 mg tablet 150 mg PO BID #180 tab-cap 05/29/18 06/12/18 Rx Allergies Allergy/AdvReac Type Severity Reaction Status Date / Time Penicillins Allergy Severe skin rash Verified 06/12/18 08:21 atorvastatin AdvReac Intermediate muscle Verified 06/12/18 08:21 aches metformin AdvReac Intermediate Diarrhea Verified 06/12/18 08:21 Exam Const General: cooperative, healthy appearing and no acute distress [facility] Head: normal to inspection Eyes General: appearance normal, both eyes and all related structures Resp Effort & Inspection: normal respiratory effort and able to speak in complete sentences Auscultation: clear to auscultation bilaterally Cardio Jugular venous pressure: no JVD Palpation: normal PMI Rate: regular rate Rhythm: regular rhythm Heart Sounds: S1 normal and S2 normal GI Inspection: normal to inspection Palpation: soft Auscultation: hypoactive bowel sounds Other: rectal bleeding pain to abdomen, LLQ Skin General skin exam: no rashes or lesions noted Neuro General: alert, awake and oriented x3 Extrem General: normal to inspection Right upper extremity: normal to inspection Right lower extremity: normal to inspection Left lower extremity: normal to inspection Results Labs : 06/12/18 09:00 06/12/18 09:00 Laboratory Results - last 24 hr 06/12/18 06/12/18 06/12/18 09:00 09:00 09:00 WBC 12.56 H RBC 4.57 Hgb 13.6 Hct 39.5 MCV 86.4 MCH 29.8 MCHC 34.4 RDW 13.2 Plt Count 194 MPV 10.8 Immature Gran % 0.2 Neutrophils % 84.3 Lymphocytes % 8.7 Monocytes % 6.5 Eosinophils % 0.1 Basophils % 0.2 Absolute Neutrophils 10.59 H Absolute Lymphocytes 1.09 L Absolute Monocytes 0.82 H Absolute Eosinophils 0.01 Absolute Basophils 0.03 PT 9.9 INR 1.0 Sodium 137 Potassium 4.6 Chloride 100 Carbon Dioxide 27.5 Anion Gap 9.5 BUN 19 H Creatinine 1.31 H Estimated GFR/1.73 m2 38.97 Glucose 301 H Lactate Calcium 9.0 Total Bilirubin 0.8 AST 19 ALT 23 Alkaline Phosphatase 117 H Total Protein 7.3 Albumin 3.4 Urine Color Urine Clarity Urine pH Ur Specific [place] Urine Protein Urine Ketones Urine Blood Urine Nitrite Urine Bilirubin Urine Urobilinogen Ur Leukocyte Esterase Urine RBC Urine WBC Ur Epithelial Cells Urine Crystals Urine Bacteria Urine Casts Urine Mucus Ur Culture Indicated? Urine Glucose 06/12/18 06/12/18 09:25 11:57 WBC RBC Hgb Hct MCV MCH MCHC RDW Plt Count MPV Immature Gran % Neutrophils % Lymphocytes % Monocytes % Eosinophils % Basophils % Absolute Neutrophils Absolute Lymphocytes Absolute Monocytes Absolute Eosinophils Absolute Basophils PT INR Sodium Potassium Chloride Carbon Dioxide Anion Gap BUN Creatinine Estimated GFR/1.73 m2 Glucose Lactate 3.4 H Calcium Total Bilirubin AST ALT Alkaline Phosphatase Total Protein Albumin Urine Color Yellow Urine Clarity Clear Urine pH 5.5 Ur Specific [place] 1.025 Urine Protein 30 H Urine Ketones Negative Urine Blood Small H Urine Nitrite Negative Urine Bilirubin Negative Urine Urobilinogen 0.2 Ur Leukocyte Esterase Negative Urine RBC 5-10 H Urine WBC 0-2 Ur Epithelial Cells Few Urine Crystals Negative Urine Bacteria Rare Urine Casts Negative Urine Mucus Moderate Ur Culture Indicated? No Urine Glucose 500 H Last Vital Signs Temp 37.4 C 06/12/18 16:00 Pulse 82 06/12/18 16:00 Resp 19 06/12/18 16:00 BP 186/98 H 06/12/18 16:00 Pulse Ox 97 06/12/18 16:00
--- NOTE | 2018-06-12 17:11 | HPE_ITS ---
Date of service: 06/12/18 Time of Service: 16:33 Assessment and Plan (1) Colitis: Start date: 06/12/18 Start time: 16:58 Current visit: Yes Status: Acute Severe abdominal pain presents at 1 am with vomiting followed by bloody bowel movement and then bright red rectal bleeding. Ct of the abdomen reveals Bowel wall thickening and pericolonic changes seen in the distal transverse colon and proximal descending colon consistent with colitis. Diverticula are noted in the region and acute diverticulitis cannot be excluded. No abscess or free air is seen. She has been admitted to /s started on flagyl and levaquin wbc elevated without fever. Clear liquid diet initiated. Pain is minimal, plavix and aspirin held. IVF for hydration, monitor hemodynamic stability, h/h. (2) Rectal bleed: Start date: 06/12/18 Start time: 17:01 Current visit: Yes Status: Acute See above, monitor h/h and held plavix and asa. (3) Gastroesophageal reflux disease: Start date: 06/12/18 Start time: 17:02 Current visit: No Status: Acute Protonix po daily and zantac daily (4) Essential hypertension: Start date: 06/12/18 Start time: 17:03 Current visit: No Status: Acute Continue metoprolol (5) JEMIMA (acute kidney injury): Start date: 06/12/18 Start time: 17:04 Current visit: Yes Status: Acute Acute on chronic kidney disease. Elevated in the setting of infection and dehydration with elevated BUN. IVF with light hydration of 1/2 ns at 100 an hour. Continue to monitor status. (6) Type 2 diabetes mellitus: Start date: 06/12/18 Start time: 17:06 Current visit: No Status: Chronic Insulin dependent diabetic, currently on clear liquids AC HS sliding scale with half dose lantus. Continue to monitor. (7) Hyperlipidemia: Start date: 06/12/18 Start time: 17:07 Current visit: No Status: Acute Continue lovastatin (8) CAD (coronary artery disease): Start date: 06/12/18 Start time: 17:07 Current visit: No Status: Chronic History of CT with stent placement in 1999. Nitro as needed (9) DVT prophylaxis: Start date: 06/12/18 Start time: 17:09 Current visit: Yes Status: Acute Chemical prophylaxis is contraindicated in Rectal bleed. TEDs and SCDs for prophylaxis. History of Present Illness Chief Complaint: RECTAL BLEED, COLITIS Narrative: Mrs. Sonia Quiroz is an 82 y.o F with PMH of IDDM, HTN, CKD, CAD and urinary incontinence status post placement of bladder stimulator coming in today after waking up a 1 am with severe lower abdominal pain and rectal bleeding. She had several episodes of vomiting last night with yellow emesis. She developed blood with stool during a bowel movement last night and then had several episodes where she felt she had to have a BM and passed only bright red blood with small clots. She has never had rectal bleeding in the past. She does take plavix and aspirin but no other blood thinners. She was having mild pain in the emergency department. CT of the abdomen revealed bowel wall thickening and periclonic changes seen in the distal transverse colon and proximal descending colon consistent with colitis. Diver ticula are noted in the region and acute diverticulitis cannot be excluded. No abscess or free air is seen. She has been asked to be admitted by our service, she will be admitted to M/S. Mrs Quiroz was found to have an elevated WBC in the ED without fever. BUN and creatinine where elevated at 19 and 1.31. Creatinine appears to be chronically elevated at between 1.05 and 1.23 with a slight bump at this admission we will give light hydration of 1/2 NS at 100 mph. Lactate is elevated at 3.4. She was started on levaquin and flagyl in the setting of colitis. Aspirin and plavix are held as she is having rectal bleeding. Protonix daily for GERD. Stool sample for c-diff, lactoferrin and fecal bacterial pathogens have been ordered. She is complaining of mild discomfort to abdomen. She is IDD and will have SSI coverage with a decreased lantus dose at night due to being on clears at this time. Labs will be monitored for h/h, cbc and chemistry. She denies nausea, vomiting at this time, chest pain, shortness of breath. Review of Systems Constitutional Reports system reviewed and no additional complaints, except as docu Eyes Reports system reviewed and no additional complaints, except as docu ENT Reports system reviewed and no additional complaints, except as docu Cardiovascular Reports system reviewed and no additional complaints, except as docu Respiratory Reports system reviewed and no additional complaints, except as docu Gastrointestinal Reports as per HPI, Reports melena and Reports cramping Genitourinary Reports system reviewed and no additional complaints, except as [facility] Musculoskeletal Reports system reviewed and no additional complaints, except as [facility] Integumentary/Breasts Reports system reviewed and no additional complaints, except as [facility] Neurologic Reports system reviewed and no additional complaints, except as [facility] Psychiatric Reports system reviewed and no additional complaints, except as [facility] Endocrine Reports system reviewed and no additional complaints, except as [facility] Hematologic/Lymphatic Reports system reviewed and no additional complaints, except as [facility] Allergic/Immunologic Reports system reviewed and no additional complaints, except as [facility] PFSH Medical History Primary osteoarthritis of right knee (Chronic) Urinary incontinence (Acute 06/05/14) Tinnitus of both ears (Acute 09/26/14) Syncope (Acute 05/15/14) Skin lesion of left ear (Acute 10/31/15) Sensorineural hearing loss, bilateral (Acute 09/13/13) Sciatica (Acute 02/19/11) Primary osteoarthritis involving multiple joints (Acute 10/30/14) Positive cardiac stress test (Acute 06/30/17) Osteopenia (Acute 02/19/11) Hyperlipidemia (Acute 02/19/11) Gastroesophageal reflux disease (Acute 02/19/11) Gastritis, chronic (Acute 12/13/16) Fibromyalgia (Acute 12/18/14) Essential hypertension (Acute 07/27/12) Edema (Acute 09/05/15) Diverticulitis of colon (Acute 02/19/11) Diabetic neuropathy (Chronic 01/24/14) Diabetes mellitus with neuropathy (Chronic) Atherosclerosis of [place] coronary artery of [place] heart with angina pectoris (Acute) Angina at rest (Acute 02/19/11) CAD (coronary artery disease) (Chronic) Old myocardial infarction (Chronic) GERD (gastroesophageal reflux disease) (Chronic) Type 2 diabetes mellitus (Chronic) Diabetic neuropathy (Chronic) H/O diverticulitis of colon (Chronic) Hypertension (Chronic) Hearing loss of both ears (Chronic) Tinnitus (Chronic) Osteoporosis (Chronic) Sciatica (Chronic) Chest pain (Acute 04/28/14) Syncope (Acute 04/28/14) Chronic kidney disease, stage III (moderate) (Chronic) COPD (chronic obstructive pulmonary disease) Surgical History Postsurgical percutaneous transluminal coronary angioplasty status (Chronic) Arthroplasty of knee Colonoscopy - MAC (12/13/16) Coronary Stent (07/12/17) EGD - MAC (12/13/16) Extraction of cataract Tonsillectomy Family History Mother No problems noted. Father Heart disease Sister Breast cancer Social History Smoking/Tobacco Use Status: Former Tobacco Use Alcohol Intake: never Drug use: Never Household members: other What type of physical activity do you participate in: none Seatbelt use: always Drive intox or ride w/intox class a regional drivers: No Working smoke detector in home: Yes Fire extinguisher in home: Yes Carbon monox detector in home: Yes Do you feel safe in your relationship?: Yes Meds Home Medications Medication Instructions Recorded Confirmed Type blood-glucose meter [OneTouch #1 kit 08/15/15 06/12/18 History Ultra2] metoprolol tartrate 25 mg PO BID tab 09/05/15 06/12/18 History loperamide [Imodium A-D] 4 mg PO TID PRN #20 cap 11/15/16 06/12/18 History zinc oxide 1 bill TOPICAL QID PRN #28 gm 11/15/16 06/12/18 History Onetouch Ultra Test Strips 1 ea MISCELLANEOUS DAILY #100 strip 08/01/17 06/12/18 Clinic lancets [Onetouch Lancets] #100 ea 08/01/17 06/12/18 Rx nitroglycerin [Nitrostat] 0.4 mg SUBLINGUAL Q5 MIN PRN X3 08/29/17 06/07/18 History PRN #1 bottle Varicella-Zoster Ge/As01b/Pf 50 mcg IM ONCE #1 kit 10/11/17 06/12/18 Clinic [Shingrix Vial Kit] aspirin 81 mg tablet,delayed 81 mg PO DAILY #90 tab 11/08/17 06/12/18 Rx release pantoprazole 40 mg tablet,delayed 40 mg PO DAILY #90 tab 12/27/17 06/12/18 Rx release nortriptyline 10 mg capsule 10 mg PO HS #90 cap 02/13/18 06/12/18 Rx albuterol sulfate HFA 90 1 - 2 puff INHALATION Q4H PRN #1 03/28/18 06/12/18 Rx mcg/actuation aerosol inhaler inhaler lisinopril 5 mg tablet 5 mg PO DAILY 3 Days #90 tab-cap 04/17/18 06/12/18 Rx lovastatin 10 mg tablet 10 mg PO DAILY #90 tab-cap 04/17/18 06/12/18 Rx oxybutynin chloride ER 5 mg 5 mg PO DAILY #90 tab 04/17/18 06/07/18 Rx tablet,extended release 24 hr pregabalin 100 mg capsule 100 mg PO BID #60 cap 04/17/18 06/12/18 Rx insulin glargine (U-100) 100 32 unit SUB-Q HS #5 ml MDD 50 04/25/18 06/12/18 Rx unit/mL (3 mL) subcutaneous pen promethazine 6.25 mg-codeine 10 5 ml PO Q4H PRN #118 ml 04/26/18 06/07/18 Rx mg/5 mL syrup hydrocodone 10 mg-chlorpheniramine 5 ml PO Q12H PRN #115 ml MDD 10ml 05/02/18 06/12/18 Rx 8 mg/5 mL oral susp extend.rel 12hr pen needle, diabetic 32 gauge x #90 box 05/18/18 06/12/18 Rx 5/32 ranitidine 150 mg tablet 150 mg PO BID #180 tab-cap 05/29/18 06/12/18 Rx Allergies Allergy/AdvReac Type Severity Reaction Status Date / Time Penicillins Allergy Severe skin rash Verified 06/12/18 08:21 atorvastatin AdvReac Intermediate muscle Verified 06/12/18 08:21 aches metformin AdvReac Intermediate Diarrhea Verified 06/12/18 08:21 Exam Const General: cooperative, healthy appearing and no acute distress HENAL Head: normal to inspection Eyes General: appearance normal, both eyes and all related structures Resp Effort & Inspection: normal respiratory effort and able to speak in complete sentences Auscultation: clear to auscultation bilaterally Cardio Jugular venous pressure: no JVD Palpation: normal PMI Rate: regular rate Rhythm: regular rhythm Heart Sounds: S1 normal and S2 normal GI Inspection: normal to inspection Palpation: soft Auscultation: hypoactive bowel sounds Other: rectal bleeding pain to abdomen, LLQ Skin General skin exam: no rashes or lesions noted Neuro General: alert, awake and oriented x3 Extrem General: normal to inspection Right upper extremity: normal to inspection Right lower extremity: normal to inspection Left lower extremity: normal to inspection Results Labs : 06/12/18 09:00 06/12/18 09:00 Laboratory Results - last 24 hr 06/12/18 06/12/18 06/12/18 09:00 09:00 09:00 WBC 12.56 H RBC 4.57 Hgb 13.6 Hct 39.5 MCV 86.4 MCH 29.8 MCHC 34.4 RDW 13.2 Plt Count 194 MPV 10.8 Immature Gran % 0.2 Neutrophils % 84.3 Lymphocytes % 8.7 Monocytes % 6.5 Eosinophils % 0.1 Basophils % 0.2 Absolute Neutrophils 10.59 H Absolute Lymphocytes 1.09 L Absolute Monocytes 0.82 H Absolute Eosinophils 0.01 Absolute Basophils 0.03 PT 9.9 INR 1.0 Sodium 137 Potassium 4.6 Chloride 100 Carbon Dioxide 27.5 Anion Gap 9.5 BUN 19 H Creatinine 1.31 H Estimated GFR/1.73 m2 38.97 Glucose 301 H Lactate Calcium 9.0 Total Bilirubin 0.8 AST 19 ALT 23 Alkaline Phosphatase 117 H Total Protein 7.3 Albumin 3.4 Urine Color Urine Clarity Urine pH Ur Specific [place] Urine Protein Urine Ketones Urine Blood Urine Nitrite Urine Bilirubin Urine Urobilinogen Ur Leukocyte Esterase Urine RBC Urine WBC Ur Epithelial Cells Urine Crystals Urine Bacteria Urine Casts Urine Mucus Ur Culture Indicated? Urine Glucose 06/12/18 06/12/18 09:25 11:57 WBC RBC Hgb Hct MCV MCH MCHC RDW Plt Count MPV Immature Gran % Neutrophils % Lymphocytes % Monocytes % Eosinophils % Basophils % Absolute Neutrophils Absolute Lymphocytes Absolute Monocytes Absolute Eosinophils Absolute Basophils PT INR Sodium Potassium Chloride Carbon Dioxide Anion Gap BUN Creatinine Estimated GFR/1.73 m2 Glucose Lactate 3.4 H Calcium Total Bilirubin AST ALT Alkaline Phosphatase Total Protein Albumin Urine Color Yellow Urine Clarity Clear Urine pH 5.5 Ur Specific [place] 1.025 Urine Protein 30 H Urine Ketones Negative Urine Blood Small H Urine Nitrite Negative Urine Bilirubin Negative Urine Urobilinogen 0.2 Ur Leukocyte Esterase Negative Urine RBC 5-10 H Urine WBC 0-2 Ur Epithelial Cells Few Urine Crystals Negative Urine Bacteria Rare Urine Casts Negative Urine Mucus Moderate Ur Culture Indicated? No Urine Glucose 500 H Last Vital Signs Temp 37.4 C 06/12/18 16:00 Pulse 82 06/12/18 16:00 Resp 19 06/12/18 16:00 BP 186/98 H 06/12/18 16:00 Pulse Ox 97 06/12/18 16:00
[2018-06-12] MEDS: Insulin Glargine 300 UNITS/3 ML PEN 16 UNITS SC (21:07)
[2018-06-12] MEDS: Lovastatin 20 MG TAB 10 MG PO (21:07)
[2018-06-12] MEDS: Pregabalin 100 MG CAP PO (21:07)
[2018-06-12] MEDS: Nortriptyline 10 MG CAP PO (21:08)
[2018-06-13] VITALS (8 sets, daily range): BP systolic 110–168; BP diastolic 60–85; PULSE 65–90; RESP 18–19; TEMP 36.9–37.5; O2SAT 95–97
[2018-06-13] MEDS: metroNIDAZOLE 500 MG/100 ML BAG 100 MG IVPB ×3 (06:12→22:59)
[2018-06-13 07:32] LABS: Abs Immature Grans 0.03 k/cumm (0.0-0.09); Absolute Lymphocyte Count 1.74 k/cumm (1.2-3.4); Basophils % 0.1; Eosinophils % 0.4; HCT 39.5 % (36.0-46.0); HGB 13.4 g/dL (12.0-15.5); Immature Grans % 0.2; Lymphocytes % 12.5; Mean Corp. HGB Concentration 33.9 g/dL (32.0-36.0); Mean Corpuscular Hemoglobin 29.3 pg (27.0-33.0); Mean Corpuscular Volume 86.4 fL (80-95); Mean Platelet Volume 10.7 fL (8.0-11.0); Monocytes % 8.5; Neutrophils % 78.3; Platelet Count 171 x1000/uL (130-400); RBC 4.57 m/cumm (4.00-5.20); RBC Distribution Width 13.4 % (11.7-14.6); White Blood Cell Count 13.95 k/cumm (4.4-10.8)
[2018-06-13 07:36] LABS: Anion Gap 8.2 mmol/L (3-11); BUN 12 mg/dL (7-18); CO2 24.8 mmol/L (21.0-32.0); CREATININE 1.08 mg/dL (0.55-1.02); Calcium 8.2 mg/dL (8.5-10.1); Chloride 101 mmol/L (98-107); Estimated GFR 48.69 (mL/min/1.73m2); Glucose 231 mg/dL (70-100); Magnesium 1.5 mg/dL (1.8-2.4); Sodium 134 mmol/L (136-145)
[2018-06-13 07:47] LABS: Absolute Basophil Count 0.01 k/cumm (0.0-0.2); Absolute Eosinophil Count 0.06 k/cumm (0.0-0.7); Absolute Monocyte Count 1.19 k/cumm (0.11-0.7); Absolute Neutrophil Count 10.92 k/cumm (1.2-6.7)
[2018-06-13] MEDS: Oxybutynin-CR 5 MG TABCR PO (08:29)
[2018-06-13] MEDS: Pantoprazole 40 MG TABCR PO (08:30)
[2018-06-13] MEDS: Pregabalin 100 MG CAP PO ×2 (08:30→20:38)
[2018-06-13] MEDS: Insulin Aspart 300 UNITS/3 ML PEN SC ×3 (08:31→16:56)
--- NOTE | 2018-06-13 09:14 | PDOC.CMIN ---
Care Management Initial Assess REASON FOR HOSPITALIZATION:: Colitis PAST MEDICAL HISTORY/PAST SURGICAL HISTORY:: angina at rest, atherosclerosis, CAD, chest pain, CKD Stage III, DM with neuropathy, diverticulitis of colon, edema, essential hypertension, fibromyalgia, gastritis; chronic, GERD, Bilat hearing loss, hyperlipidemia, hypertension, old NC, osteopenia, osteoporosis, osteoarthritis, sciatica, lesion of left ear, syncope, tinnitus, PREVIOUS FUNCTIONAL STATUS/SOCIAL/FAMILY SUPPORTS:: Sonia resides in [facility] with her friend Maureen. 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 Sonia is independent at baseline continues to drives and that her friend are able to manage their ADLs together. CURRENT FUNCTIONAL STATUS:: Sonia was lying in bed on her side when CM entered her room. She was sleeping soundly, CM spoke with ALISHA Velasco and reported she would permit her to sleep soundly. ADVANCE DIRECTIVES:: None on file. Has patient been provided with information about the portal?: Yes Did the patient sign up for the portal?: No CODE STATUS:: Full Code INSURANCE COVERAGE / FINANCIAL ISSUES:: Medicare. AARP CURRENT HOME/COMMUNITY SERVICES/EQUIPMENT:: No current services or medical equipment in the community. PRIMARY CARE PHYSICIAN:: Savanna Guillen POTENTIAL DISCHARGE NEEDS:: Follow up PCP appointment. PATIENT/FAMILY EDUCATION NEEDS:: Review discharge instructions, any limitations, and ongoing discharge planning discussion, Ask Me Three. ANTICIPATED BARRIERS TO DISCHARGE:: None identified. TRANSPORTATION:: Via private vehicle with her friend, Maureen. PLAN:: Sonia will continue to be closely monitored and treated. She will follow up with her PCP and plan of care as prescribed. She will transport via private vehicle with her friend, Maureen.
[2018-06-13 10:05] LABS: Lactate-non-spesis 1.6 mmol/l (0.6-1.4)
[2018-06-13] MEDS: MAGNESIUM SULFATE 2 GM/50 ML BAG IVPB (10:06)
[2018-06-13] MEDS: SODIUM CHLORIDE 0.45% 1,000 ML 100 ML IV (10:09)
--- NOTE | 2018-06-13 12:09 | PHARADMIT ---
Addendum entered by Jacinto Finn III 06/14/18 16:10: Pharmacy Note Subjective Awaiting C-diff, diet advanced. Tele dc'd Objective VS-OK Lytes-OK H&H- 10.8/33.0 (DOWN) WBC-10.04 FSBS- 185 BS-173 Blood stool today Assessment Levaquin continues Plan To be discharged tomorow once ABX finished Original Note: Admission Pharmacy Clinical Review ?Infectious Colitis Code Status Full Code Current Weight 89.358 kg Renally Cleared and Narrow Therapeutic Index Meds CrCl~35.20ml/min QTc Value / Action Taken QTC 399 (from 04/21/18) BP Control, Fever BP 151/67 Afebrile Electrolytes reviewed Na++ 134 K+ 4.0 Mag 1.5 NS @ 100ml/hr, Mag 2gram IV x1 today DVT Prophylaxis NONE-active bleed TEDS/SCD's Opiate Usage / Scheduled Bowel Regimen Ordered Plt/SCr for Heparin / Enoxaparin Plt 171 SCr 1.08 INR for Warfarin H/H stable, WBC/Bands H/H 13.4/39.5 WBC 13.95 Antibiotic appropriateness Levaquin 750mg IV q48h, Metronidazole IV Cultures and Sensitivities Stool C.Diff pending (need a better sample) Surgical ABX d/c within 24 hr DM control / Insulin Dosing Lantus 16u HS, Novolog scale Heart Failure (Check EF%) (AMY's, B-Block, Diuretics) Metoprolol tartrate, NTG IV to PO Switch Home Meds Reviewed Lisinopril held, Insulin @ 1/2 dose, ASA held Home Meds Not Ordered ok Comments Hematuria urine mixed w/stool, bright red blood from rectum PPI and H2 elma clear liquid diet
[2018-06-13] MEDS: Metoprolol 25 MG TAB PO ×2 (12:13→22:59)
--- NOTE | 2018-06-13 13:34 | PGE_ITS ---
Date of Service Date of service: 06/13/18 Time of Service: 13:33 Assessment and Plan (1) Colitis: Current visit: Yes Status: Acute White blood cell count remains elevated, remains afebrile. No longer experiencing abdominal pain, nausea, vomiting or diarrhea. Continues to have a small amount of BRBPR. CT abdomen on admission showed Bowel wall thickening and pericolonic changes seen in the distal transverse colon and proximal descending colon consistent with colitis, Diverticula also noted in the region and acute diverticulitis could not be excluded. No abscess or free air seen. Her case was discussed with general surgeon, Dr. Jaramillo. Dr. Jaramillo did not feel that this represented diverticulitis. Continue to hold Plavix and aspirin. Continue IV fluids, decrease rate. Continue Flagyl and Levaquin. (2) Rectal bleed: Current visit: Yes Status: Acute As above. Continues to have minimal BRBPR. Hemoglobin and hematocrit stable. Continue to monitor Hgb and Hct. Resume aspirin and Plavix when bleeding subsides. (3) Gastroesophageal reflux disease: Current visit: No Status: Acute Continue Protonix and Zantac. (4) Essential hypertension: Current visit: No Status: Acute Blood pressure under reasonable control. Continue Metoprolol. Continue to monitor blood pressure. (5) JEMIMA (acute kidney injury): Current visit: Yes Status: Acute Acute on chronic kidney disease. Improving. Continue gentle IV fluids. (6) Type 2 diabetes mellitus: Current visit: No Status: Chronic Has been on clear liquid diet with a decreased lantus dose. Her blood glucose is elevated. Advance diet as tolerated. Increase lantus, continue to monitor blood glucose. (7) Hyperlipidemia: Current visit: No Status: Acute Continue lovastatin. (8) CAD (coronary artery disease): Current visit: No Status: Chronic History of MA with stent placement in 1999. Nitro as needed. (9) DVT prophylaxis: Current visit: Yes Status: Acute TEDs and SCDs for mechanical prophylaxis. Hold chemical DVT prophylaxis in the setting of rectal bleeding. (10) Discharge planning issues: Current visit: Yes Status: Acute She is a FULL code. This case was discussed with Dr. Dickey who is in agreement. Subjective Interval history since last seen: Ms Quiroz reports feeling better today. She is no longer experiencing abdominal pain, nausea or vomiting. She has not moved her bowels today. She reports having blood TX after wiping, with small clots. She denies dizziness, shortness of breath, coughing, wheezing, chest pain/pressure, or palpitations. She reports mild edema to BLEs which is chronic. She is tolerating clear liquids, she is interested in advancing her diet. Exam Narrative Exam Narrative: General: awake and alert, in NAD. Pleasant and cooperative. HEENT: normocephalic, atruamatic, EOMI, mucous membranes moist. Neck: supple, no JVD. Respiratory: respirations even and unlabored, lung sounds clear to auscultation throughout. Cardiovascular: heart has regular rate and rhythm, 3/6 murmur noted across precordium. GI: normal bowel sounds throughout, soft, nondistended, nontender on palpation Extremities: well perfused, trace edema to BLEs. Objective Objective Clinical Data: Abnormal lab results 06/13/18 06/13/18 06/13/18 Range/Units 06:05 06:05 09:58 WBC 13.95 H (4.4-10.8) k/cumm Absolute Neutrophils 10.92 H (1.2-6.7) k/cumm Absolute Monocytes 1.19 H (0.11-0.7) k/cumm Sodium 134 L (136-145) mmol/L Creatinine 1.08 H (0.55-1.02) mg/dL Glucose 231 H (70-100) mg/dL Lactate 1.6 H (0.6-1.4) mmol/l Calcium 8.2 L (8.5-10.1) mg/dL Magnesium 1.5 L (1.8-2.4) mg/dL Vital Signs Temperature 36.9 C 06/13/18 11:30 Temperature Source Tympanic 06/13/18 11:30 Pulse 81 06/13/18 11:30 Pulse Rhythm Regular 06/12/18 21:10 Pulse 81 06/12/18 10:16 Respiratory Rate 19 06/13/18 11:30 Respiratory Effort 06/12/18 21:10 Respiratory Depth Normal 06/12/18 21:10 Respiratory Pattern Normal 06/12/18 21:10 Blood Pressure 165/74 H 06/13/18 11:30 Blood Pressure Mean 101 06/12/18 10:16 Blood Pressure Position Sitting 04/29/19 08:18 Pulse Oximetry 95 06/13/18 11:30 Oxygen Delivery Method Room Air 06/13/18 11:30 Oxygen Flow Rate 0 06/13/18 11:30 Pain Level 5 06/12/18 12:30 Comment 06/12/18 16:00 Intake & Output 06/12/18 06/13/18 06/13/18 23:59 11:59 23:59 Intake Total 1581.667 / 5944.194 7684.667 / 1546.667 Output Total 1300 / 1300 1150 / 1150 Balance 281.667 / 281.667 396.667 / 396.667 Weight 89.358 kg Intake: IV 1101.667 / 1101.667 696.667 / 696.667 Oral 480 / 480 850 / 850 Output: Urine 1300 / 1300 1150 / 1150 Other: Urine Color Yellow Yellow Urine Appearance Clear Clear Hematuria Urine Odor Normal Comment pt unsure if she voided- appeared to be all blood from rectum. Hematuria from soft/liquid BM; mixed with urine. Stool Size Small Smear Stool Characteristics Formed Soft Hard Liquid Brown Brown Voiding Methods Toilet Toilet Laboratory Results WBC 13.95 k/cumm (4.4-10.8) H 06/13/18 06:05 RBC 4.57 m/cumm (4.00-5.20) 06/13/18 06:05 Hgb 13.4 g/dL (12.0-15.5) 06/13/18 06:05 Hct 39.5 % (36.0-46.0) 06/13/18 06:05 MCV 86.4 fL (80-95) 06/13/18 06:05 MCH 29.3 pg (27.0-33.0) 06/13/18 06:05 MCHC 33.9 g/dL (32.0-36.0) 06/13/18 06:05 RDW 13.4 % (11.7-14.6) 06/13/18 06:05 Plt Count 171 x1000/uL (130-400) 06/13/18 06:05 MPV 10.7 fL (8.0-11.0) 06/13/18 06:05 Immature Gran % 0.2 06/13/18 06:05 Neutrophils % 78.3 06/13/18 06:05 Lymphocytes % 12.5 06/13/18 06:05 Monocytes % 8.5 06/13/18 06:05 Eosinophils % 0.4 06/13/18 06:05 Basophils % 0.1 06/13/18 06:05 Absolute Neutrophils 10.92 k/cumm (1.2-6.7) H 06/13/18 06:05 Absolute Lymphocytes 1.74 k/cumm (1.2-3.4) 06/13/18 06:05 Absolute Monocytes 1.19 k/cumm (0.11-0.7) H 06/13/18 06:05 Absolute Eosinophils 0.06 k/cumm (0.0-0.7) 06/13/18 06:05 Absolute Basophils 0.01 k/cumm (0.0-0.2) 06/13/18 06:05 PT 9.9 sec (9.3-11.0) 06/12/18 09:00 INR 1.0 (0.9-1.1) 06/12/18 09:00 Sodium 134 mmol/L (136-145) L 06/13/18 06:05 Potassium 4.0 mmol/L (3.5-5.1) 06/13/18 06:05 Chloride 101 mmol/L (98-107) 06/13/18 06:05 Carbon Dioxide 24.8 mmol/L (21.0-32.0) 06/13/18 06:05 Anion Gap 8.2 mmol/L (3-11) 06/13/18 06:05 BUN 12 mg/dL (7-18) D 06/13/18 06:05 Creatinine 1.08 mg/dL (0.55-1.02) H 06/13/18 06:05 Estimated GFR/1.73 m2 48.69 (mL/min/1.73m2) 06/13/18 06:05 Glucose 231 mg/dL (70-100) H 06/13/18 06:05 Lactate 1.6 mmol/l (0.6-1.4) H 06/13/18 09:58 Calcium 8.2 mg/dL (8.5-10.1) L 06/13/18 06:05 Magnesium 1.5 mg/dL (1.8-2.4) L 06/13/18 06:05 Total Bilirubin 0.8 mg/dL (0.2-1.0) 06/12/18 09:00 AST 19 U/L (15-37) 06/12/18 09:00 ALT 23 U/L (12-78) 06/12/18 09:00 Alkaline Phosphatase 117 U/L (46-116) H 06/12/18 09:00 Total Protein 7.3 g/dL (6.4-8.2) 06/12/18 09:00 Albumin 3.4 g/dL (3.4-5.0) 06/12/18 09:00 Urine Color Yellow (Yellow) 06/12/18 09:25 Urine Clarity Clear 06/12/18 09:25 Urine pH 5.5 (5-8) 06/12/18 09:25 Ur Specific [place] 1.025 (1.005-1.025) 06/12/18 09:25 Urine Protein 30 mg/dL (Negative) H 06/12/18 09:25 Urine Ketones Negative mg/dL (Negative) 06/12/18 09:25 Urine Blood Small (Negative) H 06/12/18 09:25 Urine Nitrite Negative (Negative) 06/12/18 09:25 Urine Bilirubin Negative (Negative) 06/12/18 09:25 Urine Urobilinogen 0.2 EU/dL (Up TO 0.2) 06/12/18 09:25 Ur Leukocyte Esterase Negative (Negative) 06/12/18 09:25 Urine RBC 5-10 (0-2) H 06/12/18 09:25 Urine WBC 0-2 HPF (0-5) 06/12/18 09:25 Ur Epithelial Cells Few HPF (Negative) 06/12/18 09:25 Urine Crystals Negative HPF (Negative) 06/12/18 09:25 Urine Bacteria Rare HPF (Negative) 06/12/18 09:25 Urine Casts Negative LPF (Negative) 06/12/18 09:25 Urine Mucus Moderate (Negative) 06/12/18 09:25 Ur Culture Indicated? No 06/12/18 09:25 Urine Glucose 500 mg/dL (Negative) H 06/12/18 09:25
--- NOTE | 2018-06-13 14:47 | W.INDIABCONS ---
Date of service: 06/13/18 Time of Service: 14:47 Diabetes Inpatient Consult DESCRIPTION/ASSESSMENT: Appreciate diabetes consult for Ms. Quiroz who is hospitalized with colitis and CKD. A1c 8.5 BMI 33 Ms. Quiroz manages diabetes at home with 32u Lantus. Here she receives 16u glargine and moderate insulin correction. She has been eating clear liquid with a trial meal of solid food and now back on clear liquid giving her 45 grams sugar with each meal for which she does not covered for insulin. BLood sugars 06/12 all less than 200 however today [id number]. INTERVENTION: Ms Quiroz may benefit from an increased basal dose closer to her usual dose given her A1c of 8.5 and no blood sugar less than 157mg/dl. Suggest increased basal insulin to 20 units and assess fasting blood sugar. PLAN: Will follow blood sugars and meet with her when she is able to eat. Time Spent in Nutritional Counseling and Treatment: 0 time face to face
[2018-06-13] MEDS: Normal Saline 1,000 ML 75 ML IV (15:14)
[2018-06-13] MEDS: Lovastatin 20 MG TAB 10 MG PO (20:38)
[2018-06-13] MEDS: Insulin Glargine 300 UNITS/3 ML PEN 20 UNITS SC (20:39)
[2018-06-13] MEDS: Nortriptyline 10 MG CAP PO (22:59)
[2018-06-14] VITALS (7 sets, daily range): BP systolic 107–148; BP diastolic 63–72; PULSE 68–90; RESP 16–20; TEMP 35.6–37.2; O2SAT 93–97
[2018-06-14] MEDS: Normal Saline 1,000 ML 75 ML IV (03:02)
[2018-06-14] MEDS: metroNIDAZOLE 500 MG/100 ML BAG 100 MG IVPB ×3 (05:56→21:46)
[2018-06-14 07:29] LABS: Abs Immature Grans 0.01 k/cumm (0.0-0.09); Absolute Basophil Count 0.02 k/cumm (0.0-0.2); Absolute Eosinophil Count 0.14 k/cumm (0.0-0.7); Absolute Lymphocyte Count 1.76 k/cumm (1.2-3.4); Absolute Monocyte Count 0.73 k/cumm (0.11-0.7); Absolute Neutrophil Count 7.38 k/cumm (1.2-6.7); Basophils % 0.2; Eosinophils % 1.4; HGB 10.8 g/dL (12.0-15.5); Immature Grans % 0.1; Lymphocytes % 17.5; Mean Corp. HGB Concentration 32.7 g/dL (32.0-36.0); Mean Corpuscular Hemoglobin 29.1 pg (27.0-33.0); Mean Corpuscular Volume 88.9 fL (80-95); Mean Platelet Volume 10.5 fL (8.0-11.0); Monocytes % 7.3; Neutrophils % 73.5; Platelet Count 162 x1000/uL (130-400); RBC 3.71 m/cumm (4.00-5.20); RBC Distribution Width 13.6 % (11.7-14.6); White Blood Cell Count 10.04 k/cumm (4.4-10.8)
[2018-06-14 08:02] LABS: BUN 11 mg/dL (7-18); CREATININE 0.91 mg/dL (0.55-1.02); Calcium 7.8 mg/dL (8.5-10.1); Chloride 105 mmol/L (98-107); Estimated GFR 59.33 (mL/min/1.73m2); Glucose 173 mg/dL (70-100); Potassium 3.8 mmol/L (3.5-5.1); Sodium 138 mmol/L (136-145)
[2018-06-14] MEDS: Pantoprazole 40 MG TABCR PO (08:18)
[2018-06-14] MEDS: Oxybutynin-CR 5 MG TABCR PO (08:18)
[2018-06-14] MEDS: Pregabalin 100 MG CAP PO ×2 (08:18→19:38)
[2018-06-14] MEDS: Insulin Aspart 300 UNITS/3 ML PEN SC ×3 (08:25→17:02)
--- NOTE | 2018-06-14 09:00 | PDOC.CMPRO ---
Care Management Progress Note S/O: Sonia was lying in bed, her friend Maureen at her bedside. She shared no concerns for discharge, reported no significant changes since her last admission and was pleasant and engaging in interaction. CM will continue to follow. A: 82 year old female admitted to [facility] 06/12/18 for Colitis, JEMIMA P: Sonia will continue to be closely monitored and treated; her diet is being advanced, stool sample and send out pending. She will follow up with her PCP and plan of care as prescribed. Anticipate she could discharge as soon as tomorrow per MD. She will transport via private vehicle with her friend, Maureen.
[2018-06-14] MEDS: Potassium Chloride 20 MEQ TABCR PO (10:51)
--- NOTE | 2018-06-14 11:07 | CHAPLAIN ---
Sonia was in bed when I visited. Her friend Pat was with her. Sonia is a member of [facility], but she was not interested in having the sikh know she is here. I explained my role and offered support. Sonia said she is waiting to hear from what her plan is after the doctor has a meeting at 10 a.m.
[2018-06-14] MEDS: Metoprolol 25 MG TAB PO ×2 (11:47→23:56)
[2018-06-14] MEDS: levoFLOXacin 750 MG/150 ML BAG 100 MG IVPB (11:47)
[2018-06-14 11:50] LABS: Campylobacter PCR SEE COMMENTS; Salmonella PCR SEE COMMENTS; Shiga Toxin PCR SEE COMMENTS; Shigella/Enteroinvasive Ecoli SEE COMMENTS
--- NOTE | 2018-06-14 12:06 | W.PM.PROGNOT ---
Date of Service Date of service: 06/14/18 Time of Service: 12:08 Assessment and Plan (1) Colitis: Current visit: Yes Status: Acute White blood cell count down to 10.04 today, remains afebrile. Experiencing mild lower abdominal pain with no nausea, vomiting or diarrhea. Continues to have a small amount of BRBPR. Her hemoglobin and hematocrit are down slightly today, hemoglobin 10.8, hematocrit 33. CT abdomen on admission showed Bowel wall thickening and pericolonic changes seen in the distal transverse colon and proximal descending colon consistent with colitis, Diverticula also noted in the region and acute diverticulitis could not be excluded. No abscess or free air seen. Her case was discussed with general surgeon by previous provider. Dr. Jaramillo did not feel that this represented diverticulitis. Stool studies pending. Continue to hold Plavix and aspirin. Continue IV fluids, decrease rate. Continue Flagyl and Levaquin. (2) Rectal bleed: Current visit: Yes Status: Acute As above. Continues to have minimal BRBPR. Hemoglobin and hematocrit down slightly today. Possibly related to hemodilution. Continue to monitor Hgb and Hct. Continue to hold antiplatelet therapy. Resume aspirin and Plavix after follow-up with her primary care provider. (3) Gastroesophageal reflux disease: Current visit: No Status: Acute Continue Protonix and Zantac. (4) Essential hypertension: Current visit: No Status: Acute Blood pressure controlled at this time. Continue Metoprolol. Continue to monitor blood pressure. (5) JEMIMA (acute kidney injury): Current visit: Yes Status: Acute Acute on chronic kidney disease. Improved, creatinine 0.91 today. DC IV fluids. (6) Type 2 diabetes mellitus: Current visit: No Status: Chronic She is tolerating a regular consistency diet, increase basal insulin. Continue carb counting and heart healthy diet. Continue short acting insulin with meals per sliding scale. (7) Hyperlipidemia: Current visit: No Status: Acute Continue lovastatin. (8) CAD (coronary artery disease): Current visit: No Status: Chronic History of PA with stent placement in 1999. Nitro as needed. (9) DVT prophylaxis: Current visit: Yes Status: Acute TEDs and SCDs for mechanical prophylaxis. Hold chemical DVT prophylaxis in the setting of rectal bleeding. (10) Discharge planning issues: Current visit: Yes Status: Acute She is a FULL code. This case was discussed with Dr. Dickey who is in agreement. Subjective Interval history since last seen: Ms Quiroz reports mild abdominal pain across her lower abdomen. She reports one area that is more sore in her LLQ. She is eating a regular diet and tolerating it. She denies nausea, vomiting or diarrhea. She continues to have small amounts of blood per rectum when she wipes. She has not had a bowel movement today. She denies dizziness, shortness of breath, coughing, wheezing, chest pain/pressure, or palpitations. She reports improvement in her lower extremity edema. Exam Narrative Exam Narrative: General: awake and alert, in NAD. Pleasant and cooperative. HEENT: normocephalic, atruamatic, EOMI, mucous membranes moist. Neck: supple, no JVD. Respiratory: respirations even and unlabored, lung sounds clear to auscultation throughout. Cardiovascular: heart has regular rate and rhythm, 2/6 murmur noted at LSB. GI: normal bowel sounds throughout, soft, nondistended, mild tenderness across lower abdomen. Extremities: well perfused, trace edema to BLEs. Objective Objective Clinical Data: Abnormal lab results 06/14/18 06/14/18 Range/Units 07:10 07:10 RBC 3.71 L (4.00-5.20) m/cumm Hgb 10.8 L D (12.0-15.5) g/dL Hct 33.0 L (36.0-46.0) % Absolute Neutrophils 7.38 H (1.2-6.7) k/cumm Absolute Monocytes 0.73 H (0.11-0.7) k/cumm Glucose 173 H (70-100) mg/dL Calcium 7.8 L (8.5-10.1) mg/dL Vital Signs Temperature 35.6 C L 06/14/18 08:33 Temperature Source Temporal Artery Scan 06/14/18 08:33 Pulse 78 06/14/18 08:33 Pulse Rhythm Regular 06/14/18 08:30 Pulse 81 06/12/18 10:16 Respiratory Rate 16 06/14/18 08:33 Respiratory Effort Non-Labored 06/14/18 08:30 Respiratory Depth Normal 06/14/18 08:30 Respiratory Pattern Normal 06/14/18 08:30 Blood Pressure 107/63 06/14/18 08:33 Blood Pressure Mean 101 04/29/19 10:16 Blood Pressure Position Sitting 06/12/18 08:18 Pulse Oximetry 97 06/14/18 08:33 Oxygen Delivery Method Room Air 06/14/18 08:33 Oxygen Flow Rate 0 06/14/18 08:33 Pain Level 0 06/14/18 08:33 Comment 06/14/18 08:33 Intake & Output 06/13/18 06/14/18 06/14/18 23:59 11:59 23:59 Intake Total 1969.583 / 3616.250 1332.50 / 1332.50 Output Total 900 / 2350 300 / 300 Balance 1069.583 / 6217.042 2683.50 / 1032.50 Intake: IV 1489.583 / 2286.250 642.50 / 642.50 Oral 480 / 1330 690 / 690 Output: Urine 900 / 2350 300 / 300 Other: Urine Color Light Emilie Dark Emilie Urine Appearance Clear Clear Urine Odor Normal Comment pt gets up AD RIC to void. Voiding Methods Toilet Toilet Laboratory Results WBC 10.04 k/cumm (4.4-10.8) 06/14/18 07:10 RBC 3.71 m/cumm (4.00-5.20) L 06/14/18 07:10 Hgb 10.8 g/dL (12.0-15.5) L D 06/14/18 07:10 Hct 33.0 % (36.0-46.0) L 06/14/18 07:10 MCV 88.9 fL (80-95) 06/14/18 07:10 MCH 29.1 pg (27.0-33.0) 06/14/18 07:10 MCHC 32.7 g/dL (32.0-36.0) 06/14/18 07:10 RDW 13.6 % (11.7-14.6) 06/14/18 07:10 Plt Count 162 x1000/uL (130-400) 06/14/18 07:10 MPV 10.5 fL (8.0-11.0) 06/14/18 07:10 Immature Gran % 0.1 06/14/18 07:10 Neutrophils % 73.5 06/14/18 07:10 Lymphocytes % 17.5 06/14/18 07:10 Monocytes % 7.3 06/14/18 07:10 Eosinophils % 1.4 06/14/18 07:10 Basophils % 0.2 06/14/18 07:10 Absolute Neutrophils 7.38 k/cumm (1.2-6.7) H 06/14/18 07:10 Absolute Lymphocytes 1.76 k/cumm (1.2-3.4) 06/14/18 07:10 Absolute Monocytes 0.73 k/cumm (0.11-0.7) H 06/14/18 07:10 Absolute Eosinophils 0.14 k/cumm (0.0-0.7) 06/14/18 07:10 Absolute Basophils 0.02 k/cumm (0.0-0.2) 06/14/18 07:10 PT 9.9 sec (9.3-11.0) 06/12/18 09:00 INR 1.0 (0.9-1.1) 06/12/18 09:00 Sodium 138 mmol/L (136-145) 06/14/18 07:10 Potassium 3.8 mmol/L (3.5-5.1) 06/14/18 07:10 Chloride 105 mmol/L (98-107) 06/14/18 07:10 Carbon Dioxide 26.0 mmol/L (21.0-32.0) 06/14/18 07:10 Anion Gap 7.0 mmol/L (3-11) 06/14/18 07:10 BUN 11 mg/dL (7-18) 06/14/18 07:10 Creatinine 0.91 mg/dL (0.55-1.02) 06/14/18 07:10 Estimated GFR/1.73 m2 59.33 (mL/min/1.73m2) 06/14/18 07:10 Glucose 173 mg/dL (70-100) H 06/14/18 07:10 Lactate 1.6 mmol/l (0.6-1.4) H 06/13/18 09:58 Calcium 7.8 mg/dL (8.5-10.1) L 06/14/18 07:10 Magnesium 2.0 mg/dL (1.8-2.4) 06/14/18 07:10 Total Bilirubin 0.8 mg/dL (0.2-1.0) 06/12/18 09:00 AST 19 U/L (15-37) 06/12/18 09:00 ALT 23 U/L (12-78) 06/12/18 09:00 Alkaline Phosphatase 117 U/L (46-116) H 06/12/18 09:00 Total Protein 7.3 g/dL (6.4-8.2) 06/12/18 09:00 Albumin 3.4 g/dL (3.4-5.0) 06/12/18 09:00 Urine Color Yellow (Yellow) 06/12/18 09:25 Urine Clarity Clear 06/12/18 09:25 Urine pH 5.5 (5-8) 06/12/18 09:25 Ur Specific [place] 1.025 (1.005-1.025) 06/12/18 09:25 Urine Protein 30 mg/dL (Negative) H 06/12/18 09:25 Urine Ketones Negative mg/dL (Negative) 06/12/18 09:25 Urine Blood Small (Negative) H 06/12/18 09:25 Urine Nitrite Negative (Negative) 06/12/18 09:25 Urine Bilirubin Negative (Negative) 06/12/18 09:25 Urine Urobilinogen 0.2 EU/dL (Up TO 0.2) 06/12/18 09:25 Ur Leukocyte Esterase Negative (Negative) 06/12/18 09:25 Urine RBC 5-10 (0-2) H 06/12/18 09:25 Urine WBC 0-2 HPF (0-5) 06/12/18 09:25 Ur Epithelial Cells Few HPF (Negative) 06/12/18 09:25 Urine Crystals Negative HPF (Negative) 06/12/18 09:25 Urine Bacteria Rare HPF (Negative) 06/12/18 09:25 Urine Casts Negative LPF (Negative) 06/12/18 09:25 Urine Mucus Moderate (Negative) 06/12/18 09:25 Ur Culture Indicated? No 06/12/18 09:25 Urine Glucose 500 mg/dL (Negative) H 06/12/18 09:25
[2018-06-14] MEDS: Lovastatin 20 MG TAB 10 MG PO (19:38)
[2018-06-14] MEDS: Nortriptyline 10 MG CAP PO (21:43)
[2018-06-14] MEDS: Insulin Glargine 300 UNITS/3 ML PEN 24 UNITS SC (21:44)
[2018-06-14] MEDS: Normal Saline Flush 10 ML SYR IVP (21:45)
[2018-06-15] MEDS: metroNIDAZOLE 500 MG/100 ML BAG 100 MG IVPB (06:29)
[2018-06-15] MEDS: Normal Saline Flush 10 ML SYR IVP ×2 (06:30→08:18)
[2018-06-15 06:55] LABS: Abs Immature Grans 0.01 k/cumm (0.0-0.09); Absolute Basophil Count 0.01 k/cumm (0.0-0.2); Absolute Eosinophil Count 0.15 k/cumm (0.0-0.7); Absolute Lymphocyte Count 1.71 k/cumm (1.2-3.4); Absolute Monocyte Count 0.78 k/cumm (0.11-0.7); Absolute Neutrophil Count 7.47 k/cumm (1.2-6.7); Basophils % 0.1; Eosinophils % 1.5; HCT 34.2 % (36.0-46.0); HGB 11.4 g/dL (12.0-15.5); Immature Grans % 0.1; Lymphocytes % 16.9; Mean Corp. HGB Concentration 33.3 g/dL (32.0-36.0); Mean Corpuscular Hemoglobin 29.5 pg (27.0-33.0); Mean Corpuscular Volume 88.4 fL (80-95); Mean Platelet Volume 10.8 fL (8.0-11.0); Monocytes % 7.7; Neutrophils % 73.7; Platelet Count 166 x1000/uL (130-400); RBC 3.87 m/cumm (4.00-5.20); RBC Distribution Width 13.3 % (11.7-14.6); White Blood Cell Count 10.13 k/cumm (4.4-10.8)
[2018-06-15 07:10] LABS: Anion Gap 8.6 mmol/L (3-11); BUN 9 mg/dL (7-18); CO2 25.4 mmol/L (21.0-32.0); CREATININE 1.01 mg/dL (0.55-1.02); Calcium 8.3 mg/dL (8.5-10.1); Chloride 104 mmol/L (98-107); Estimated GFR 52.61 (mL/min/1.73m2); Glucose 153 mg/dL (70-100); Magnesium 1.9 mg/dL (1.8-2.4); Sodium 138 mmol/L (136-145)
[2018-06-15 07:12] VITALS: BP 160/59; PULSE 67; RESP 18; TEMP 36.3; O2SAT 92
[2018-06-15] MEDS: Magnesium Oxide 400 MG TAB PO (08:17)
[2018-06-15] MEDS: Pregabalin 100 MG CAP PO (08:17)
[2018-06-15] MEDS: Pantoprazole 40 MG TABCR PO (08:17)
[2018-06-15] MEDS: Oxybutynin-CR 5 MG TABCR PO (08:17)
[2018-06-15] MEDS: Lisinopril 5 MG TAB PO (08:53)
--- NOTE | 2018-06-15 10:03 | W.PM.DS.N ---
Date of service: 06/15/18 Time of Service: 10:04 DS: Diagnosis Discharge Diagnosis (1) Colitis: Status: Acute (2) Rectal bleed: Status: Acute (3) Gastroesophageal reflux disease: Status: Acute (4) Essential hypertension: Status: Acute (5) JEMIMA (acute kidney injury): Status: Acute (6) Type 2 diabetes mellitus: Status: Chronic (7) Hyperlipidemia: Status: Acute (8) CAD (coronary artery disease): Status: Chronic Discharge Plan Disposition Patient Disposition: HOME Condition: Improving Discharge Details Reason For Visit: COLITIS Admit Date/Time: 06/12/18 11:57 Admit Provider: Jona Dickey Attending Provider: Jona Dickey Primary Care Provider: Savanna Guillen [facility] Course Hospital Course: Sonia Quiroz is a very pleasant 82 year old female with a past medical history significant for insulin dependent diabetes, hypertension, chronic kidney disease, coronary artery disease with history of [place] on dual antiplatelet therapy and urinary incontinence status post bladder stimulator placement in the past who presented to the ED on 06/12/18 with reports of severe lower abdominal pain and rectal bleeding, as well as nausea and vomiting. She had a CT abdomen which showed bowel wall thickening and periclonic changes seen in the distal transverse colon and proximal descending colon consistent with colitis. Diverticula were noted in the region and acute diverticulitis could not be excluded. No abscess or free air was noted. Her case was discussed with General surgery who did not feel that this represented diverticulitis. She had leukocytosis, she was afebrile, she had an acute kidney injury with BUN of 19 and creatinine of 1.31, in the settin of chronic kidney disease. Her lactate was elevated at 3.4. She was initiated on Flagyl and Levaquin for colitis. Her aspirin and plavix were placed on hold. She was admitted to the med/surg floor. Over the following days, her symptoms subsided. She is no longer having diarrhea, she has not had any bright red blood per rectum on the day of discharge, she is eating and drinking and tolerating a regular diet with no nausea or vomiting. Her JEMIMA has resolved. Her leukocytosis resolved. She has remained afebrile. Stool studies are penidng. Her Dual antiplatelet therapy will remain on hold until her primary care provider clears her to resume taking the aspirin and plavix. She will need to complete a course of antibiotics. Consider follow up with GI if her symptoms do not completely resolve. She will follow up with her PCP as scheduled. Home Meds and New Rx's Prescriptions: New metronidazole 500 mg tablet 500 mg PO TID Qty: 12 RF: 0 levofloxacin 500 mg tablet 500 mg PO DAILY Qty: 4 RF: 0 Continued pregabalin 100 mg capsule 100 mg PO BID Qty: 60 RF: 0 lisinopril 5 mg tablet 5 mg PO DAILY 3 Days Qty: 90 RF: 3 lovastatin 10 mg tablet 10 mg PO DAILY Qty: 90 RF: 3 oxybutynin chloride 5 mg tablet extended release 24hr 5 mg PO DAILY Qty: 90 RF: 3 promethazine-codeine 6.25-10 mg/5 mL syrup 5 ml PO Q4H PRN (Reason: cough) Qty: 118 RF: 0 blood-glucose meter [RNA Networksuch Ultra2] 1 EACH kit 1 ea Miscellaneous DAILY Qty: 1 RF: 0 metoprolol tartrate 25 MG tablet 25 mg PO BID RF: 0 zinc oxide 28 GM ointment 1 bill Topical QID PRNQty: 28 RF: 0 lancets [ZeaVisionTouch UltraSoft Lancets] 1 EACH misc 1 ea Miscellaneous DAILY Qty: 100 RF: 3 [employer], [employer] ULTRA TEST STRIPS 1 EACH strip 1 ea Miscellaneous DAILY Qty: 100 RF: 3 nitroglycerin [Nitrostat] 0.4 MG tablet, sublingual 0.4 mg Sublingual Q5 MIN PRN X3 PRNQty: 1 RF: 3 Varicella-Zoster Ge/As01b/Pf [Shingrix Vial Kit] 50 MCG INJ 50 mcg IM ONCE Qty: 1 RF: 1 pantoprazole 40 mg tablet,delayed release (DR/EC) 40 mg PO DAILY Qty: 90 RF: 1 nortriptyline 10 mg capsule 10 mg PO HS Qty: 90 RF: 3 albuterol sulfate [ProAir HFA] 90 mcg/actuation HFA aerosol inhaler 1 - 2 puff Inhalation Q4H PRN Qty: 1 RF: 12 Lantus Solostar U-100 Insulin 100 unit/mL (3 mL) insulin pen 32 unit Sub-Q HS MDD 50 Qty: 5 RF: 3 pen needle, diabetic [BD Ultra-Fine Marilyn Pen Needle] 32 gauge x 5/32 needle 1 unit Miscellaneous HS Qty: 90 RF: 3 ranitidine HCl 150 mg tablet 150 mg PO BID Qty: 180 RF: 1 Discontinued hydrocodone-chlorpheniramine 10-8 mg/5 mL suspension,extended rel 12 hr 5 ml PO Q12H MDD 10ml PRN (Reason: cough) Qty: 115 RF: 0 loperamide [Imodium A-D] 2 MG capsule 4 mg PO TID PRNQty: 20 RF: 0 aspirin 81 mg tablet,delayed release (DR/EC) 81 mg PO DAILY Qty: 90 RF: 3 Discharge Instructions Instructions: Infectious Colitis (GEN) Additional Instructions: Take your antibiotics until they are gone (Flagyl and Levaquin). DO NOT TAKE ASPIRIN or PLAVIX until your PCP says it is OK. Advance your diet slowy as tolerated. Follow up with your PCP as scheduled. If you experience increased bleeding, diarrhea, nausea or vomiting- contact your PCP or return to the ED. Monitor your blood sugars. Take Care! Stand Alone Forms: Nursing Discharge Form Referrals: Savanna Guillen NP [Primary Care Provider] - 06/22/18 10:00 am Activity:: Activity as Tolerated Equipment/Supplies:: No Equipment Needed Diet:: Carb Counting Discharge Orders Discharge Orders: Discharge Order (Routine); Ordered 06/15/18 Ordered By: Petra Borrego Exam Narrative Exam Narrative: General: awake and alert, in NAD. Pleasant and cooperative. HEENT: normocephalic, atruamatic, EOMI, mucous membranes moist. Neck: supple, no JVD. Respiratory: respirations even and unlabored, lung sounds clear to auscultation throughout. Cardiovascular: heart has regular rate and rhythm, 2/6 murmur noted at LSB. GI: normal bowel sounds throughout, soft, nondistended, mild tenderness across lower abdomen. Extremities: well perfused, trace edema to BLEs. DS: Data Vitals/I&O Vitals and I&O: Vital Signs Temperature 36.3 C L 06/15/18 07:12 Temperature Source Tympanic 06/15/18 07:12 Pulse 67 06/15/18 07:12 Pulse Rhythm Regular 06/15/18 08:00 Pulse 81 06/12/18 10:16 Respiratory Rate 18 06/15/18 07:12 Respiratory Effort Non-Labored 06/15/18 08:00 Respiratory Depth Normal 06/15/18 08:00 Respiratory Pattern Normal 06/15/18 08:00 Blood Pressure 160/59 H 06/15/18 07:12 Blood Pressure Mean 101 06/12/18 10:16 Blood Pressure Position Sitting 06/12/18 08:18 Pulse Oximetry 92 L 06/15/18 07:12 Oxygen Delivery Method Room Air 06/15/18 07:12 Oxygen Flow Rate 0 06/15/18 07:12 Pain Level 5 06/15/18 07:12 Comment 06/14/18 08:33 Intake & Output 06/14/18 06/14/18 06/15/18 11:59 23:59 11:59 Intake Total 1572.50 / 2282.50 710 / 2282.50 803.75 / 803.75 Output Total 300 / 900 600 / 900 525 / 525 Balance 1272.50 / 1382.50 110 / 1382.50 278.75 / 278.75 Intake: IV 642.50 / 992.50 350 / 992.50 803.75 / 803.75 Oral 930 / 1290 360 / 1290 Output: Urine 300 / 900 600 / 900 525 / 525 Other: Urine Color Dark Emilie Dark Emilie Yellow Urine Appearance Clear Clear Clear Urine Odor Normal Normal Stool Size Smear Stool Characteristics Bloody Voiding Methods Toilet Toilet Toilet Completed studies during hospitalization [Text1]: 06/12/18: ABDOMEN AND PELVIC CT; CT scan of the abdomen and pelvis was performed without intravenous or oral contrast material. Comparison is made with 11/04/16. The visualized lung bases show no acute abnormality. Lack of IV contrast does limit evaluation of the abdominal and pelvic organs. The unenhanced liver is grossly unremarkable. The gallbladder is negative. No biliary ductal dilatation is seen. The pancreas, spleen, adrenal glands, kidneys, ureters and bladder are unremarkable. The reproductive organs show no acute abnormality. There is diverticulosis seen in the descending and sigmoid colon. There is bowel wall thickening and pericolonic inflammatory change seen in the distal transverse colon and proximal and mid descending colon consistent with colitis. Diverticulitis cannot be excluded. The remainder of the bowel is unremarkable. No findings to suggest an acute appendicitis are present. There is atherosclerosis of the abdominal aorta but no aneurysmal dilatation is seen. No focal fluid collection is seen to suggest an abscess. No significant abdominal or pelvic adenopathy or ascites or pneumoperitoneum is present. There is a battery pack in the soft tissues of the left flank. Degenerative changes are seen in the spine. IMPRESSION: Bowel wall thickening and pericolonic changes seen in the distal transverse colon and proximal descending colon consistent with colitis. Diverticula are noted in the region and acute diverticulitis cannot be excluded. No abscess or free air is seen. Labs on day of discharge: Labs from last 24 hours 06/15/18 06/15/18 06/12/18 06:29 06:29 18:25 WBC 10.13 RBC 3.87 L Hgb 11.4 L Hct 34.2 L MCV 88.4 MCH 29.5 MCHC 33.3 RDW 13.3 Plt Count 166 MPV 10.8 Immature Gran % 0.1 Neutrophils % 73.7 Lymphocytes % 16.9 Monocytes % 7.7 Eosinophils % 1.5 Basophils % 0.1 Absolute Neutrophils 7.47 H Absolute Lymphocytes 1.71 Absolute Monocytes 0.78 H Absolute Eosinophils 0.15 Absolute Basophils 0.01 Sodium 138 Potassium 4.0 Chloride 104 Carbon Dioxide 25.4 Anion Gap 8.6 BUN 9 Creatinine 1.01 Estimated GFR/1.73 m2 52.61 Glucose 153 H Calcium 8.3 L Magnesium 1.9 Stool Campylobacter PCR See comments Stool Salmonella PCR See comments Stool Shigella PCR See comments Shiga Toxin (PCR) See comments 06/12/18 18:21 Stool Clostridioides difficile Screen - Pending Preliminary micro results at discharge 06/12/18 18:21 Clostridioides difficile Screen - Pending Stool [facility] Medical History Primary osteoarthritis of right knee (Chronic) Urinary incontinence (Acute 06/05/14) Tinnitus of both ears (Acute 09/26/14) Syncope (Acute 05/15/14) Skin lesion of left ear (Acute 10/31/15) Sensorineural hearing loss, bilateral (Acute 09/13/13) Sciatica (Acute 02/19/11) Primary osteoarthritis involving multiple joints (Acute 10/30/14) Positive cardiac stress test (Acute 06/30/17) Osteopenia (Acute 02/19/11) Hyperlipidemia (Acute 02/19/11) Gastroesophageal reflux disease (Acute 02/19/11) Gastritis, chronic (Acute 12/13/16) Fibromyalgia (Acute 12/18/14) Essential hypertension (Acute 07/27/12) Edema (Acute 09/05/15) Diverticulitis of colon (Acute 02/19/11) Diabetic neuropathy (Chronic 01/24/14) Diabetes mellitus with neuropathy (Chronic) Atherosclerosis of [place] coronary artery of [place] heart with angina pectoris (Acute) Angina at rest (Acute 02/19/11) CAD (coronary artery disease) (Chronic) Old myocardial infarction (Chronic) GERD (gastroesophageal reflux disease) (Chronic) Type 2 diabetes mellitus (Chronic) Diabetic neuropathy (Chronic) H/O diverticulitis of colon (Chronic) Hypertension (Chronic) Hearing loss of both ears (Chronic) Tinnitus (Chronic) Osteoporosis (Chronic) Sciatica (Chronic) Chest pain (Acute 04/28/14) Syncope (Acute 04/28/14) Chronic kidney disease, stage III (moderate) (Chronic) COPD (chronic obstructive pulmonary disease) Surgical History Postsurgical percutaneous transluminal coronary angioplasty status (Chronic) Arthroplasty of knee Colonoscopy - MAC (12/13/16) Coronary Stent (07/12/17) EGD - MAC (12/13/16) Extraction of cataract Tonsillectomy Family History Mother No problems noted. 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
--- NOTE | 2018-06-15 10:20 | DSE_ITS ---
Date of service: 06/15/18 Time of Service: 10:04 DS: Diagnosis Discharge Diagnosis (1) Colitis: Status: Acute (2) Rectal bleed: Status: Acute (3) Gastroesophageal reflux disease: Status: Acute (4) Essential hypertension: Status: Acute (5) JEMIMA (acute kidney injury): Status: Acute (6) Type 2 diabetes mellitus: Status: Chronic (7) Hyperlipidemia: Status: Acute (8) CAD (coronary artery disease): Status: Chronic Discharge Plan Disposition Patient Disposition: HOME Condition: Improving Discharge Details Reason For Visit: COLITIS Admit Date/Time: 06/12/18 11:57 Admit Provider: Jona Dickey Attending Provider: Jona Dickey Primary Care Provider: Savanna Guillen [facility] Course Hospital Course: Sonia Quiroz is a very pleasant 82 year old female with a past medical history significant for insulin dependent diabetes, hypertension, chronic kidney disease, coronary artery disease with history of GA on dual antiplatelet therapy and urinary incontinence status post bladder stimulator placement in the past who presented to the ED on 06/12/18 with reports of severe lower abdominal pain and rectal bleeding, as well as nausea and vomiting. She had a CT abdomen which showed bowel wall thickening and periclonic changes seen in the distal transverse colon and proximal descending colon consistent with colitis. Diverticula were noted in the region and acute diverticulitis could not be excluded. No abscess or free air was noted. Her case was discussed with General surgery who did not feel that this represented diverticulitis. She had leukocytosis, she was afebrile, she had an acute kidney injury with BUN of 19 and creatinine of 1.31, in the settin of chronic kidney disease. Her lactate was elevated at 3.4. She was initiated on Flagyl and Levaquin for colitis. Her aspirin and plavix were placed on hold. She was admitted to the med/surg floor. Over the following days, her symptoms subsided. She is no longer having diarrhea, she has not had any bright red blood per rectum on the day of discharge, she is eating and drinking and tolerating a regular diet with no nausea or vomiting. Her JEMIMA has resolved. Her leukocytosis resolved. She has remained afebrile. Stool studies are penidng. Her Dual antiplatelet therapy will remain on hold until her primary care provider clears her to resume taking the aspirin and plavix. She will need to complete a course of antibiotics. Consider follow up with GI if her symptoms do not completely resolve. She will follow up with her PCP as scheduled. Home Meds and New Rx's Prescriptions: New metronidazole 500 mg tablet 500 mg PO TID Qty: 12 RF: 0 levofloxacin 500 mg tablet 500 mg PO DAILY Qty: 4 RF: 0 Continued pregabalin 100 mg capsule 100 mg PO BID Qty: 60 RF: 0 lisinopril 5 mg tablet 5 mg PO DAILY 3 Days Qty: 90 RF: 3 lovastatin 10 mg tablet 10 mg PO DAILY Qty: 90 RF: 3 oxybutynin chloride 5 mg tablet extended release 24hr 5 mg PO DAILY Qty: 90 RF: 3 promethazine-codeine 6.25-10 mg/5 mL syrup 5 ml PO Q4H PRN (Reason: cough) Qty: 118 RF: 0 blood-glucose meter [EntrenaYauch Ultra2] 1 EACH kit 1 ea Miscellaneous DAILY Qty: 1 RF: 0 metoprolol tartrate 25 MG tablet 25 mg PO BID RF: 0 zinc oxide 28 GM ointment 1 bill Topical QID PRNQty: 28 RF: 0 lancets [IndusDiva.comTouch UltraSoft Lancets] 1 EACH misc 1 ea Miscellaneous DAILY Qty: 100 RF: 3 The InfluenceTOUCH ULTRA TEST STRIPS 1 EACH strip 1 ea Miscellaneous DAILY Qty: 100 RF: 3 nitroglycerin [Nitrostat] 0.4 MG tablet, sublingual 0.4 mg Sublingual Q5 MIN PRN X3 PRNQty: 1 RF: 3 Varicella-Zoster Ge/As01b/Pf [Shingrix Vial Kit] 50 MCG INJ 50 mcg IM ONCE Qty: 1 RF: 1 pantoprazole 40 mg tablet,delayed release (DR/EC) 40 mg PO DAILY Qty: 90 RF: 1 nortriptyline 10 mg capsule 10 mg PO HS Qty: 90 RF: 3 albuterol sulfate [ProAir HFA] 90 mcg/actuation HFA aerosol inhaler 1 - 2 puff Inhalation Q4H PRN Qty: 1 RF: 12 Lantus Solostar U-100 Insulin 100 unit/mL (3 mL) insulin pen 32 unit Sub-Q HS MDD 50 Qty: 5 RF: 3 pen needle, diabetic [BD Ultra-Fine Marilyn Pen Needle] 32 gauge x 5/32 needle 1 unit Miscellaneous HS Qty: 90 RF: 3 ranitidine HCl 150 mg tablet 150 mg PO BID Qty: 180 RF: 1 Discontinued hydrocodone-chlorpheniramine 10-8 mg/5 mL suspension,extended rel 12 hr 5 ml PO Q12H MDD 10ml PRN (Reason: cough) Qty: 115 RF: 0 loperamide [Imodium A-D] 2 MG capsule 4 mg PO TID PRNQty: 20 RF: 0 aspirin 81 mg tablet,delayed release (DR/EC) 81 mg PO DAILY Qty: 90 RF: 3 Discharge Instructions Instructions: Infectious Colitis (GEN) Additional Instructions: Take your antibiotics until they are gone (Flagyl and Levaquin). DO NOT TAKE ASPIRIN or PLAVIX until your PCP says it is OK. Advance your diet slowy as tolerated. Follow up with your PCP as scheduled. If you experience increased bleeding, diarrhea, nausea or vomiting- contact your PCP or return to the ED. Monitor your blood sugars. Take Care! Stand Alone Forms: Nursing Discharge Form Referrals: Savanna Guillen NP [Primary Care Provider] - 06/22/18 10:00 am Activity:: Activity as Tolerated Equipment/Supplies:: No Equipment Needed Diet:: Carb Counting Discharge Orders Discharge Orders: Discharge Order (Routine); Ordered 06/15/18 Ordered By: Petra Borrego Exam Narrative Exam Narrative: General: awake and alert, in NAD. Pleasant and cooperative. HEENT: normocephalic, atruamatic, EOMI, mucous membranes moist. Neck: supple, no JVD. Respiratory: respirations even and unlabored, lung sounds clear to auscultation throughout. Cardiovascular: heart has regular rate and rhythm, 2/6 murmur noted at LSB. GI: normal bowel sounds throughout, soft, nondistended, mild tenderness across lower abdomen. Extremities: well perfused, trace edema to BLEs. DS: Data Vitals/I&O Vitals and I&O: Vital Signs Temperature 36.3 C L 06/15/18 07:12 Temperature Source Tympanic 06/15/18 07:12 Pulse 67 06/15/18 07:12 Pulse Rhythm Regular 06/15/18 08:00 Pulse 81 06/12/18 10:16 Respiratory Rate 18 06/15/18 07:12 Respiratory Effort Non-Labored 06/15/18 08:00 Respiratory Depth Normal 06/15/18 08:00 Respiratory Pattern Normal 06/15/18 08:00 Blood Pressure 160/59 H 06/15/18 07:12 Blood Pressure Mean 101 06/12/18 10:16 Blood Pressure Position Sitting 06/12/18 08:18 Pulse Oximetry 92 L 06/15/18 07:12 Oxygen Delivery Method Room Air 06/15/18 07:12 Oxygen Flow Rate 0 06/15/18 07:12 Pain Level 5 06/15/18 07:12 Comment 06/14/18 08:33 Intake & Output 06/14/18 06/14/18 06/15/18 11:59 23:59 11:59 Intake Total 1572.50 / 2282.50 710 / 2282.50 803.75 / 803.75 Output Total 300 / 900 600 / 900 525 / 525 Balance 1272.50 / 1382.50 110 / 1382.50 278.75 / 278.75 Intake: IV 642.50 / 992.50 350 / 992.50 803.75 / 803.75 Oral 930 / 1290 360 / 1290 Output: Urine 300 / 900 600 / 900 525 / 525 Other: Urine Color Dark Emilie Dark Emilie Yellow Urine Appearance Clear Clear Clear Urine Odor Normal Normal Stool Size Smear Stool Characteristics Bloody Voiding Methods Toilet Toilet Toilet Completed studies during hospitalization [Text1]: 06/12/18: ABDOMEN AND PELVIC CT; CT scan of the abdomen and pelvis was performed without intravenous or oral co ntrast material. Comparison is made with 11/04/16. The visualized lung bases show no acute abnormality. Lack of IV contrast does limit evaluation of the abdominal and pelvic organs. The unenhanced liver is grossly unremarkable. The gallbladder is negative. No biliary ductal dilatation is seen. The pancreas, spleen, adrenal glands, kidneys, ureters and bladder are unremarkable. The reproductive organs show no acute abnormality. There is diverticulosis seen in the descending and sigmoid colon. There is bowel wall thickening and pericolonic inflammatory change seen in the distal transverse colon and proximal and mid descending colon consistent with colitis. Diverticulitis cannot be excluded. The remainder of the bowel is unremarkable. No findings to suggest an acute appendicitis are present. There is atherosclerosis of the abdominal aorta but no aneurysmal dilatation is seen. No focal fluid collection is seen to suggest an abscess. No significant abdominal or pelvic adenopathy or ascites or pneumoperitoneum is present. There is a battery pack in the soft tissues of the left flank. Degenerative changes are seen in the spine. IMPRESSION: Bowel wall thickening and pericolonic changes seen in the distal transverse colon and proximal descending colon consistent with colitis. Diverticula are noted in the region and acute diverticulitis cannot be excluded. No abscess or free air is seen. Labs on day of discharge: Labs from last 24 hours 06/15/18 06/15/18 06/12/18 06:29 06:29 18:25 WBC 10.13 RBC 3.87 L Hgb 11.4 L Hct 34.2 L MCV 88.4 MCH 29.5 MCHC 33.3 RDW 13.3 Plt Count 166 MPV 10.8 Immature Gran % 0.1 Neutrophils % 73.7 Lymphocytes % 16.9 Monocytes % 7.7 Eosinophils % 1.5 Basophils % 0.1 Absolute Neutrophils 7.47 H Absolute Lymphocytes 1.71 Absolute Monocytes 0.78 H Absolute Eosinophils 0.15 Absolute Basophils 0.01 Sodium 138 Potassium 4.0 Chloride 104 Carbon Dioxide 25.4 Anion Gap 8.6 BUN 9 Creatinine 1.01 Estimated GFR/1.73 m2 52.61 Glucose 153 H Calcium 8.3 L Magnesium 1.9 Stool Campylobacter PCR See comments Stool Salmonella PCR See comments Stool Shigella PCR See comments Shiga Toxin (PCR) See comments 06/12/18 18:21 Stool Clostridioides difficile Screen - Pending Preliminary micro results at discharge 06/12/18 18:21 Clostridioides difficile Screen - Pending Stool [facility] Medical History Primary osteoarthritis of right knee (Chronic) Urinary incontinence (Acute 06/05/14) Tinnitus of both ears (Acute 09/26/14) Syncope (Acute 05/15/14) Skin lesion of left ear (Acute 10/31/15) Sensorineural hearing loss, bilateral (Acute 09/13/13) Sciatica (Acute 02/19/11) Primary osteoarthritis involving multiple joints (Acute 10/30/14) Positive cardiac stress test (Acute 06/30/17) Osteopenia (Acute 02/19/11) Hyperlipidemia (Acute 02/19/11) Gastroesophageal reflux disease (Acute 02/19/11) Gastritis, chronic (Acute 12/13/16) Fibromyalgia (Acute 12/18/14) Essential hypertension (Acute 07/27/12) Edema (Acute 09/05/15) Diverticulitis of colon (Acute 02/19/11) Diabetic neuropathy (Chronic 01/24/14) Diabetes mellitus with neuropathy (Chronic) Atherosclerosis of [place] coronary artery of [place] heart with angina pectoris (Acute) Angina at rest (Acute 02/19/11) CAD (coronary artery disease) (Chronic) Old myocardial infarction (Chronic) GERD (gastroesophageal reflux disease) (Chronic) Type 2 diabetes mellitus (Chronic) Diabetic neuropathy (Chronic) H/O diverticulitis of colon (Chronic) Hypertension (Chronic) Hearing loss of both ears (Chronic) Tinnitus (Chronic) Osteoporosis (Chronic) Sciatica (Chronic) Chest pain (Acute 04/28/14) Syncope (Acute 04/28/14) Chronic kidney disease, stage III (moderate) (Chronic) COPD (chronic obstructive pulmonary disease) Surgical History Postsurgical percutaneous transluminal coronary angioplasty status (Chronic) Arthroplasty of knee Colonoscopy - MAC (12/13/16) Coronary Stent (07/12/17) EGD - MAC (12/13/16) Extraction of cataract Tonsillectomy Family History Mother No problems noted. 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
--- NOTE | 2018-06-15 14:44 | PDOC.CMDIS ---
LACE Index Scoring Tool - Questions: Length of Stay (in days): 3 Acuity (Admit via E.D.?): Yes E.D. Visits: 1 - Answers: Total Score: 7 Risk of Readmission: Low Risk Care Management Discharge Reason for Hospitalization: Colitis Discharge Plan: Sonia will discharge home when ready per MD. She will discharge with prescription for continued oral antibiotics and follow up with her PCP and plan of care as prescribed. She will transport via private vehicle with her friend, Maureen. Patient/Family Education Needs: Review discharge instructions, discuss Ask Me Three.
== END 2018-06-15 12:28 | disposition home or self-care (01) | DRG 392 ==
LOC: ER 12:43 → MS 12:47
PROVIDERS: Admitting Provider Internal Medicine; Emergency Provider Student in an Organized Health Care Education/Training Program; PCP Nurse Practitioner; Visit Provider Internal Medicine
DX: K52.9 Noninfective gastroenteritis and colitis, unspecified (principal); K62.5 Hemorrhage of anus and rectum; R10.30 Lower abdominal pain, unspecified; R11.2 Nausea with vomiting, unspecified; R19.7 Diarrhea, unspecified; K21.9 Gastro-esophageal reflux disease without esophagitis; N17.9 Acute kidney failure, unspecified; I12.9 Hypertensive chronic kidney disease with stage 1 through stage 4 chronic kidney disease, or unspecified chronic kidney disease; N18.9 Chronic kidney disease, unspecified; E11.22 Type 2 diabetes mellitus with diabetic chronic kidney disease; R74.0 Nonspecific elevation of levels of transaminase and lactic acid dehydrogenase [LDH]; E78.5 Hyperlipidemia, unspecified; J44.9 Chronic obstructive pulmonary disease, unspecified; Z71.3 Dietary counseling and surveillance; Z87.891 Personal history of nicotine dependence; Z79.02 Long term (current) use of antithrombotics/antiplatelets
CPT/HCPCS: 36415; 80048; 80053; 87505; 96365; 99223; 99232; 99239; 99285; 74176; 81003; 81015; 83605; 83630; 83735; 85025; 85610; 87324; 99284; J1956

== ENCOUNTER 2018-06-22 13:07 | Outpatient (CLI) | payer MEDICARE, SELFPAY ==
--- NOTE | 2018-06-22 11:47 | W.PREOPHP ---
Assessment and Plan (1) Primary osteoarthritis of right knee: Current visit: No Status: Chronic Plan: Educated patient on surgery covering surgical technique via prosthetic models, recovery process, benefits and risks including but not limited to risk of infection, blood clot, damage to soft tissue/blood vessels/nerves in detail. After discussion patient gives verbal understanding of risks and elects to proceed with scheduling surgery. Educated patient due to elevated A1c (8.5 on 03/15/18) she does have increased risk of infection following surgery. Additional hemoglobin A1c was not ordered at today's visit as per Dr. Turner's request. Patient had opportunity to have questions answered to her satisfaction. She will contact office if issues arise. Patient will continue to be scheduled for right total knee replacement with Dr. Turner on 06/26/2018. History of Present Illness Narrative: Ms. Quiroz is a 82-year-old female who presents to clinic for pre-operative visit for scheduled right total knee replacement with Dr. Turner on 06/26/2018. Patient has significant past medical history of diabetes, hyperlipidemia, GERD, hypertension, unstable angina, history of [place] with stent placement. She also was recently hospitalized for acute colitis but has finished her recommended antibiotics. At today's appointment she denies any cardiac issues. She has previously received cardiology clearance from Dr. Fiore at [facility] on 04/24/2018. Patient has previously been seen for right knee pain that has been severely aggravated in the past 2 years. She describes pain as being localized predominantly along the medial aspect of her knee and along the patella. She feels like her kneecap is unstable with movement but denies any true dislocation. As per patient she underwent right knee arthroscopy with removal of bone a number of years ago by Dr. Galloway. Patient has noticed worsening right knee discomfort that is now impacting activities of daily life. Previously patient was an avid walker doing average of 3-5 miles daily. Unfortunately, due to her severe right knee pain patient is unable to go for even short distance walks. She continues to have aggravation of right knee pain with increasing ambulation, stairs especially descending stairs, walking down hills and after prolonged sitting. She describes the knee feels swollen and she frequently has to use her hands to move the limb onto the bed at night. Patient has previously received steroid injection at orthopedic appointment on 04/05/2018 which provided slight pain relief for approximately 1 week. Previous x-rays of the right knee completed nonweightbearing from 02/16/18 shows right knee DJD predominantly on the medial compartment. Patient has been treating pain by taking Lyrica for diabetic neuropathy and applying ice when the knee feels swollen. Patient denies any known injury or trauma to the right knee. She denies any recent injury, falls or giving out sensations. Pertinent Surgical Information Review of patient's chart shows recent hospitalization at [facility] on 06/12/2018 for lower abdominal pain as well as rectal bleeding. Patient was admitted to the hospital where she was started on Flagyl and Levaquin. Patient also had acute aggravation of chronic kidney disease which was noted to be improved by the time of discharge. Patient was discharged on 06/15/2018 when she had resolution of her symptoms and had normalized labs. Patient states she continued to take the full course of her antibiotics which were finished over this past weekend. On physical examination at today's visit she does have some left lower quadrant discomfort but states she has LLQ tenderness for years - review of patient's chart she has LLQ in the past. She denies any additional symptoms of abdominal pain, melena, hematochezia, nausea vomiting, diarrhea, constipation, or fevers. Today's ROS was completed from time of discharge to this appointment. At this time patient reports that she has resumed her normal diet and had a normal bowel movement yesterday on 06/21/2018. Patient saw [facility] cardiology - Dr. Fiore on 04/24/2018 at which time provider's note states stop Plavix and proceed with knee surgery. As per Dr. Fiore's note patient had acceptable cardiac risk for anesthesia and surgery. She denies any new cardiac or respiratory symptoms since she was seen by cardiology. Review of patient's chart shows last A1c of 8.5 at her primary care appointment on 03/15/2018. Reviewed patient's A1c with Dr. Turner. Dr. Turner does not recommend additional A1c testing at today's appointment. Patient denies previous complications from surgery or anesthesia. Review of Systems Constitutional Denies fever(s), Denies frequent falls and Denies headache(s) Comments: reports slightly dizzy in the morning when she stands up then resolves; denies any recent change in symptoms Eyes Denies change in vision ENT Reports dizziness (only dizziness in the morning when she first stands then resolves), Denies ear discharge, Denies headache(s), Denies epistaxis, Denies nasal discharge and Denies sore throat Cardiovascular Denies chest pain, Denies chest pain at rest, Denies chest pain with activity, Denies rapid heart rate (reports used to feel like her heart was going faster when laying flat), Denies irregular heart rhythm, Denies radiating jaw, neck or arm pain, Denies palpitations, Denies dyspnea, Reports dyspnea on exertion (when going uphills for the last year; denies any recent change), Denies orthopnea, Denies paroxysmal nocturnal dyspnea and Denies slow heart rate Respiratory Denies cough, Denies dyspnea, Reports dyspnea on exertion (when going uphills for the last year; denies any recent change) and Denies wheezing Gastrointestinal Denies abdominal pain, Denies melena, Denies hematochezia, Denies constipation, Denies diarrhea, Denies nausea and Denies vomiting Genitourinary Denies hematuria, Denies dysuria and Denies urinary urgency Musculoskeletal Reports as per HPI Neurologic Reports dizziness (only dizziness in the morning when she first stands then resolves), Denies frequent falls and Denies headache(s) Psychiatric Denies anxiety and Denies depression Endocrine Denies palpitations Allergic/Immunologic Denies wheezing [facility] Medical History Heart murmur (Acute) History of rheumatic fever (Acute) Tendonitis of left rotator cuff (Acute) COPD (chronic obstructive pulmonary disease) Rectal bleed (Acute) Colitis (Acute) JEMIMA (acute kidney injury) (Acute) Primary osteoarthritis of right knee (Chronic) Urinary incontinence (Acute 06/05/14) Tinnitus of both ears (Acute 09/26/14) Syncope (Acute 05/15/14) Skin lesion of left ear (Acute 10/31/15) Sensorineural hearing loss, bilateral (Acute 09/13/13) Sciatica (Acute 02/19/11) Primary osteoarthritis involving multiple joints (Acute 10/30/14) Positive cardiac stress test (Acute 06/30/17) Osteopenia (Acute 02/19/11) Hyperlipidemia (Acute 02/19/11) Gastroesophageal reflux disease (Acute 02/19/11) Gastritis, chronic (Acute 12/13/16) Fibromyalgia (Acute 12/18/14) Essential hypertension (Chronic 07/27/12) Edema (Acute 09/05/15) Diverticulitis of colon (Acute 02/19/11) Diabetic neuropathy (Chronic 01/24/14) Diabetes mellitus with neuropathy (Chronic) Atherosclerosis of [place] coronary artery of [place] heart with angina pectoris (Acute) Angina at rest (Acute 02/19/11) CAD (coronary artery disease) (Chronic) Old myocardial infarction (Chronic) GERD (gastroesophageal reflux disease) (Chronic) Type 2 diabetes mellitus (Chronic) Diabetic neuropathy (Chronic) H/O diverticulitis of colon (Chronic) Hypertension (Chronic) Hearing loss of both ears (Chronic) Tinnitus (Chronic) Osteoporosis (Chronic) Sciatica (Chronic) Chest pain (Acute 04/28/14) Syncope (Acute 04/28/14) Chronic kidney disease, stage III (moderate) (Chronic) Surgical History S/P right knee arthroscopy (Acute) Extraction of cataract Colonoscopy - MAC (12/13/16) Coronary Stent (07/12/17) EGD - MAC (12/13/16) Tonsillectomy Postsurgical percutaneous transluminal coronary angioplasty status (Chronic) Family History Father Heart disease Sister Stomach cancer Mother No problems noted. 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 Working smoke detector in home: Yes Fire extinguisher in home: Yes Carbon monox detector in home: Yes Do you feel safe in your relationship?: Yes Meds Home Medications Medication Instructions Recorded Confirmed Type blood-glucose meter [OneTouch #1 kit 08/15/15 06/22/18 History Ultra2] nitroglycerin [Nitrostat] 0.4 mg SUBLINGUAL Q5 MIN PRN X3 08/29/17 06/22/18 History PRN #1 bottle Varicella-Zoster Ge/As01b/Pf 50 mcg IM ONCE #1 kit 10/11/17 06/22/18 Clinic [Shingrix Vial Kit] nortriptyline 10 mg capsule 10 mg PO HS #90 cap 02/13/18 06/22/18 Rx albuterol sulfate HFA 90 1 - 2 puff INHALATION Q4H PRN #1 03/28/18 06/22/18 Rx mcg/actuation aerosol inhaler inhaler lovastatin 10 mg tablet 10 mg PO DAILY #90 tab-cap 04/17/18 06/22/18 Rx oxybutynin chloride ER 5 mg 5 mg PO DAILY #90 tab 04/17/18 06/22/18 Rx tablet,extended release 24 hr pen needle, diabetic 32 gauge x #90 box 05/18/18 06/22/18 Rx 5/32 ranitidine 150 mg tablet 150 mg PO BID #180 tab-cap 05/29/18 06/22/18 Rx aspirin 81 mg tablet,delayed 81 mg PO DAILY 06/22/18 06/22/18 History release blood sugar diagnostic strips #100 each 06/22/18 06/22/18 Rx insulin glargine (U-100) 100 32 unit SUB-Q HS ml 06/22/18 History unit/mL (3 mL) subcutaneous pen lancets #100 ea 06/22/18 06/22/18 Rx lisinopril 5 mg tablet 5 mg PO DAILY 3 Days #90 tab-cap 06/22/18 06/22/18 Rx metoprolol tartrate 25 mg tablet 25 mg PO BID #180 tab 06/22/18 06/22/18 Rx pantoprazole 40 mg tablet,delayed 40 mg PO DAILY #90 tab 06/22/18 06/22/18 Rx release pregabalin 100 mg capsule 100 mg PO BID #60 cap 06/22/18 06/22/18 Rx Allergies Allergy/AdvReac Type Severity Reaction Status Date / Time Penicillins Allergy Severe skin rash Verified 06/22/18 12:31 atorvastatin AdvReac Intermediate muscle Verified 06/22/18 12:31 aches metformin AdvReac Intermediate Diarrhea Verified 06/22/18 12:31 Exam Const General: cooperative and no acute distress [facility] Head: normal to inspection, normocephalic and atraumatic Ears: external ears normal General nose exam: external nose normal and no nasal discharge Face and sinus: face symmetric Mouth: oral mucosae normal, lip normal, tongue normal and moist mucous membranes Teeth and gingiva: fair dentition Throat: posterior oropharynx normal Eyes General: appearance normal, both eyes and all related structures Pupils: PERRL EOM: EOM intact bilaterally Neck Neck: trachea midline Carotids: normal carotid upstroke Lymphatic: no lymphadenopathy noted Resp Effort & Inspection: normal respiratory effort and able to speak in complete sentences Auscultation: clear to auscultation bilaterally, no rales, no rhonchi and no wheezes Cardio Heart Sounds: S1 normal, S2 normal and murmur systolic Pulses: radial pulses present bilaterally GI Palpation: soft, no hepatosplenomegaly and tender (slight tenderness to deep palpation; no other tenderness to palpation) in the LLQ Auscultation: normal bowel sounds Skin General skin exam: no rashes or lesions noted Extrem Other: Right knee examination: Skin is intact without signs of erythema, calor, lesions or rash. Slight effusion is present to palpation. Tenderness to palpation along medial joint line and with pressure to the patella.
[2018-06-22 14:33] LABS: Abs Immature Grans 0.03 k/cumm (0.0-0.09); Absolute Basophil Count 0.03 k/cumm (0.0-0.2); Absolute Eosinophil Count 0.18 k/cumm (0.0-0.7); Absolute Lymphocyte Count 2.14 k/cumm (1.2-3.4); Absolute Monocyte Count 0.73 k/cumm (0.11-0.7); Absolute Neutrophil Count 5.36 k/cumm (1.2-6.7); Basophils % 0.4; Eosinophils % 2.1; HCT 39.8 % (36.0-46.0); HGB 13.2 g/dL (12.0-15.5); Immature Grans % 0.4; Lymphocytes % 25.3; Mean Corp. HGB Concentration 33.2 g/dL (32.0-36.0); Mean Corpuscular Hemoglobin 29.5 pg (27.0-33.0); Mean Platelet Volume 10.7 fL (8.0-11.0); Monocytes % 8.6; Neutrophils % 63.2; Platelet Count 259 x1000/uL (130-400); RBC 4.47 m/cumm (4.00-5.20); RBC Distribution Width 13.8 % (11.7-14.6); White Blood Cell Count 8.47 k/cumm (4.4-10.8)
--- NOTE | 2018-07-03 15:51 | INDS_ITS ---
Date of service: 06/30/18 PT Notes Inpatient Physical Therapy Discharge Summary Dates: 06/30/2018 Dates of Service: 06/26/2018 through 06/29/2018 This is a clinical summary of care provided on the duration of dates listed above. No charge was made in the completion of this documentation. Referring Doctor: Rajiv Turner MD PT Orders: PT CONSULT: Ambulates postop right total knee. Get OOB ambulating in room. WBAT to right leg. Precautions: Fall. Standard. WBAT to right LE. Patient Profile/Admitting Diagnosis: Orders received for this 82-year-old female with primary unilateral osteoarthritis of right knee status post right total knee arthroplasty. PMHX: Medical History Heart murmur (Acute) History of rheumatic fever (Acute) Tendonitis of left rotator cuff (Acute) COPD (chronic obstructive pulmonary disease) Rectal bleed (Acute) Colitis (Acute) JEMIMA (acute kidney injury) (Acute) Primary osteoarthritis of right knee (Chronic) Urinary incontinence (Acute 06/05/14) Tinnitus of both ears (Acute 09/26/14) Syncope (Acute 05/15/14) Skin lesion of left ear (Acute 10/31/15) Sensorineural hearing loss, bilateral (Acute 09/13/13) Sciatica (Acute 02/19/11) Primary osteoarthritis involving multiple joints (Acute 10/30/14) Positive cardiac stress test (Acute 06/30/17) Osteopenia (Acute 02/19/11) Hyperlipidemia (Acute 02/19/11) Gastroesophageal reflux disease (Acute 02/19/11) Gastritis, chronic (Acute 12/13/16) Fibromyalgia (Acute 12/18/14) Essential hypertension (Chronic 07/27/12) Edema (Acute 09/05/15) Diverticulitis of colon (Acute 02/19/11) Diabetic neuropathy (Chronic 01/24/14) Diabetes mellitus with neuropathy (Chronic) Atherosclerosis of [place] coronary artery of [place] heart with angina pectoris (Acute) Angina at rest (Acute 02/19/11) CAD (coronary artery disease) (Chronic) Old myocardial infarction (Chronic) GERD (gastroesophageal reflux disease) (Chronic) Type 2 diabetes mellitus (Chronic) Diabetic neuropathy (Chronic) H/O diverticulitis of colon (Chronic) Hypertension (Chronic) Hearing loss of both ears (Chronic) Tinnitus (Chronic) Osteoporosis (Chronic) Sciatica (Chronic) Chest pain (Acute 04/28/14) Syncope (Acute 04/28/14) Chronic kidney disease, stage III (moderate) (Chronic) Surgical History S/P right knee arthroscopy (Acute) Extraction of cataract Colonoscopy - MAC (12/13/16) Coronary Stent (07/12/17) EGD - MAC (12/13/16) Tonsillectomy Postsurgical percutaneous transluminal coronary angioplasty status (Chronic) Social History/Home Situation: Patient lives with in a 1 floor house with 4 steps to enter and a rail on the left going up. Patient was independent with all aspects of ADLS without the need for an assistive ambulatory device nor adaptive equipment. Patient still drives. 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 Current Functional Limitations: Need for assistance with all transfers and ambulation task performance using FWW Equipment Owned/DME: SD Subjective: NT Objective: General Observation: NT Mental Status:NT Pain:NT ROM: Right Upper Extremity: Shoulder Flexion WFL. Shoulder abduction WFL. Elbow flexion WFL. Wrist flexion WFL. Functional opening and closing of hand WFL. Left Upper Extremity: Shoulder Flexion WFL. Shoulder abduction WFL. Elbow flexion WFL. Wrist flexion WFL. Functional opening and closing of hand WFL. Right Lower Extremity: SLR with kne immobilizer to 45 degrees. Hip abduction WFL. Knee flexion not taken due to Elizabeth dressing. Ankle dorsiflexion WFL. Ankle plantarflexion WFL. Left Lower Extremity: Hip flexion WFL. Hip abduction WFL. Knee flexion WFL. Ankle dorsiflexion WFL. Ankle plantarflexion WFL. Strength: Right Upper Extremity: Shoulder flexors 5/5. Shoulder abductors 5/5. Elbow flexors 5/5. Elbow extensors 5/5. Forestry Adviser strong. Left Upper Extremity: Shoulder flexors 5/5. Shoulder abductors 5/5. Elbow flexors 5/5. Elbow extensors 5/5. Forestry Adviser strong. Right Lower Extremity: Hip flexors 3-/5. Hip abductors 45. Knee flexors4/5. Knee extensors not assessed due to Elizabeth dressing. Ankle dorsiflexors 5/5. Ankle plantarflexors 5/5. Left Lower Extremity:Hip flexors 5/5. Hip abductors 5/5. Knee flexors 5/5. Knee extensors 5/5. Ankle dorsiflexors 5/5. Ankle plantarflexors 5/5. Sensation: Intact as to pain and pressure on the left LE, diminished on right LE. Bed Mobility/Transfers: Rolling I Supine to sit I Sit to supineI Sit to stand SBA Stand to sit SBA Bed to chair SBA Chair to bed SBA Gait: Patient is able to 75 feet x 2 using FWW, CGA. Patient reported 1/10 pain on the right lateral thigh after gait activity but resolved with rest. Denies dizziness, chest pain, and headache. Balance: Static Sitting: Good Dynamic Sitting: Good Static Standing: Fair Dynamic Standing: Fair Assessment: 82-year-old female with primary unilateral osteoarthritis of right knee status post right total knee arthroplasty. Patient presents with clinical signs and symptoms consistent with current/admitting diagnoses and postoperative status that have resulted to mobility limitations, gait instability, generalized weakness, and impairment of motor control as demonstrated by the following impairment level findings: 1. Decreased strength to R LE major muscle groups 2. Impaired sitting/standing balance 3. Impaired activity tolerance 4. Limitation of joint range of motion in right hip and knee joints Impairments are contributing to the following functional limitations: 1. Dependent bed mobility skills 2. Increased dependence with transfers 3. Inability to safely ambulate without assistive device and physical assistance 4. Increase completion time for mobility ADL performance 5. Increased fall risk 6. Inability to negotiate steps alone safely Goals: Goals X1 week 1. Supine-Sit independent MET 2. Sit-Supine independent MET 3. Sit-Stand independent NOT MET 4. Stand-Sit independent NOT MET 5. Bed-Chair independent NOT MET 6. Chair-Bed independent NOT MET 7. Independent gait on level surface with use of least restrictive device for at least 300 feet without report of pain nor dyspnea NOT MET 8. Independent stair negotiation while holding onto bilateral rails for at least 5 steps without report of pain nor dyspnea NOT MET 9. Independent with home exercise program NOT MET 10. Good static and dynamic standing balance/tolerance NOT MET DISCHARGE RECOMMENDATIONS: Patient will benefit from home health PT services in order to regain independent premorbid mobility level using the least restrictive assistive ambulatory device, assess home safety, establish/implement functional maintenance program for strengthening and fall reduction. TREATMENT CODE/TIME: NC Thank you for this referral. Jenna Burrows, PT, DPT, CLT [facility]
== END 2018-06-22 13:27 ==
PROVIDERS: PCP Nurse Practitioner; Visit Provider Orthopaedic Surgery
DX: M25.561 Pain in right knee (principal); M17.11 Unilateral primary osteoarthritis, right knee; Z01.818 Encounter for other preprocedural examination; J44.9 Chronic obstructive pulmonary disease, unspecified; I12.9 Hypertensive chronic kidney disease with stage 1 through stage 4 chronic kidney disease, or unspecified chronic kidney disease; N18.3 Chronic kidney disease, stage 3 (moderate)
CPT/HCPCS: 36415; NC; 85025

== ENCOUNTER 2018-06-26 05:58 | Inpatient (IN) | payer MEDICARE, SELFPAY ==
[2018-06-22 13:49] VITALS: BP 122/70; PULSE 62; RESP 16; TEMP 36.5; O2SAT 97
[2018-06-22 13:52] VITALS: BP 122/70; PULSE 62; RESP 16; TEMP 36.5; O2SAT 97
--- NOTE | 2018-06-23 13:31 | PDOC.ANES ---
Date of service: 06/22/18 Time of Service: 14:30 Anesthesia Note Report Anesthesia Note: Patient evaluated in the preoperative clinic with anesthesia. Recent hospitalization at the end of May withacute GI bleed noted. At the time patient was stopped on Plavix and aspirin. Upon discharge patient was to follow up with PCP who continued to hold dual antiplatlet therapy. At anesthesia preoperative evaluation, patient no abdominal symptoms and CBC was reviewed. Jocelyn Yusuf CRNa made call to Dr. Angel (athletic instructor) to follow up prior to surgery on 06/26/2018. Plan to restart patient on Aspirin 81 mg 06/22/2018 and to continue thearpy due to JOHN x2. Patient's PCP aware and Dr. Turner's office notified.
[2018-06-26] VITALS (14 sets, daily range): BP systolic 119–160; BP diastolic 43–98; PULSE 60–80; RESP 15–18; TEMP 35.8–37.1; O2SAT 95–99
[2018-06-26] MEDS: Lactated Ringers 1,000 ML 80 ML IV (07:11)
[2018-06-26] MEDS: ceFAZolin 2 GM/50 ML BAG IVPB (07:34)
[2018-06-26] MEDS: Hydrogen Peroxide 3% 480 ML BTL (09:12)
--- NOTE | 2018-06-26 10:15 | DI.RAD_ITS ---
SYMPTOMS/DIAGNOSIS: CHECK COMPONENTS OF TOTAL KNEE REPLACEMENT IN RECOVERY ROOM PORTABLE LEFT KNEE: The exam was performed with the knee in an immobilizer. The patient is status post placement of a total knee prosthesis. The components appear well aligned. Anterior skin l[place] and postsurgical air are noted.
--- NOTE | 2018-06-26 11:16 | NUR.NOTE ---
Nursing Note: Arrived from PACU via stretcher at 1045 to room 214. Moved from stretcher to bed via hover mat. Patient noted to have a heart murmur, patient states she has had since childhood. Lung sounds clear and equal bilaterally. Active bowel sounds throughout. Escalona draining clear yellow urine. FS obtained see worklist. Patient RLL in surgical sanches and immobilizer elevated on 2 pillows. + pedal pulse to LLE, NADIA and SCD in place. unable to palpate RLE right pulse related to dressing. Patient exhibits good cap refill and toes are warm. Patient denies pain. Spinal site intact. Patient is taking sips of gingerale. Patient oriented to call ornelas system. Please see VS intervention for further intervention.
[2018-06-26] MEDS: POTASSIUM CHLORIDE/0.9% NACL 1,000 ML 125 MEQ IV ×2 (12:06→19:32)
[2018-06-26] MEDS: Ketorolac 15 MG/ML VIAL IVP ×3 (12:06→23:44)
[2018-06-26] MEDS: oxyCODONE-CR 10 MG TABCR PO ×2 (12:07→23:45)
--- NOTE | 2018-06-26 12:10 | NUR.NOTE ---
Nursing Note: 1210: toradol IVP given by this scribe. med scanned by bassam dawn lpn
[2018-06-26] MEDS: Docusate Sodium 100 MG CAP PO ×2 (13:56→20:10)
[2018-06-26] MEDS: ceFAZolin 2,000 MG in Normal Saline 100 ML 200 MG IVPB ×2 (14:28→20:10)
--- NOTE | 2018-06-26 15:03 | PT.INIE ---
Date of service: 06/26/18 Time of Service: 14:20 PT Notes Inpatient Physical Therapy Evaluation Date: 06/26/2018 Referring Doctor: Rajiv Turner MD PT Orders: PT CONSULT: Ambulates postop right total knee. Get OOB ambulating in room. WBAT to right leg. Precautions: Fall. Standard. WBAT to right LE. Patient Profile/Admitting Diagnosis: Orders received for this 82-year-old female with primary unilateral osteoarthritis of right knee status post right total knee arthroplasty. PMHX: Medical History Heart murmur (Acute) History of rheumatic fever (Acute) Tendonitis of left rotator cuff (Acute) COPD (chronic obstructive pulmonary disease) Rectal bleed (Acute) Colitis (Acute) JEMIMA (acute kidney injury) (Acute) Primary osteoarthritis of right knee (Chronic) Urinary incontinence (Acute 06/05/14) Tinnitus of both ears (Acute 09/26/14) Syncope (Acute 05/15/14) Skin lesion of left ear (Acute 10/31/15) Sensorineural hearing loss, bilateral (Acute 09/13/13) Sciatica (Acute 02/19/11) Primary osteoarthritis involving multiple joints (Acute 10/30/14) Positive cardiac stress test (Acute 06/30/17) Osteopenia (Acute 02/19/11) Hyperlipidemia (Acute 02/19/11) Gastroesophageal reflux disease (Acute 02/19/11) Gastritis, chronic (Acute 12/13/16) Fibromyalgia (Acute 12/18/14) Essential hypertension (Chronic 07/27/12) Edema (Acute 09/05/15) Diverticulitis of colon (Acute 02/19/11) Diabetic neuropathy (Chronic 01/24/14) Diabetes mellitus with neuropathy (Chronic) Atherosclerosis of [place] coronary artery of [place] heart with angina pectoris (Acute) Angina at rest (Acute 02/19/11) CAD (coronary artery disease) (Chronic) Old myocardial infarction (Chronic) GERD (gastroesophageal reflux disease) (Chronic) Type 2 diabetes mellitus (Chronic) Diabetic neuropathy (Chronic) H/O diverticulitis of colon (Chronic) Hypertension (Chronic) Hearing loss of both ears (Chronic) Tinnitus (Chronic) Osteoporosis (Chronic) Sciatica (Chronic) Chest pain (Acute 04/28/14) Syncope (Acute 04/28/14) Chronic kidney disease, stage III (moderate) (Chronic) Surgical History S/P right knee arthroscopy (Acute) Extraction of cataract Colonoscopy - MAC (12/13/16) Coronary Stent (07/12/17) EGD - MAC (12/13/16) Tonsillectomy Postsurgical percutaneous transluminal coronary angioplasty status (Chronic) Social History/Home Situation: Patient lives with in a 1 floor house with 4 steps to enter and a rail on the left going up. Patient was independent with all aspects of ADLS without the need for an assistive ambulatory device nor adaptive equipment. Patient still drives. 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 Current Functional Limitations: Need for assistance with all transfers and ambulation task performance using FWW Equipment Owned/DME: [place] Subjective: Patient pleasant and cooperative. She is agreeable to a PT consult and treatment. She reports mild discomfort on her right lateral thigh after gait activity. She however denies any nausea,, dizziness, chest pain or headache throughout PT session. Objective: General Observation: Patient seen resting in bed in conversation with friends. Right knee immobilizer over Elizabeth dressing. Escalona catheter in place. IV in the left UE. NADIA on the left leg. Anti-DVT pump on left leg. Mental Status: Alert and oriented x3. Pain: 1/10 on the right lateral thigh after gait activity Vital Signs: In supine 149/70 3 mmHg, 99% on room air 7 bpm. In sitting, 163/75 mmHg and 8% on room air, 63 bpm. In standing, 159/75 mmHg, 98% on room air, 64 bpm. ROM: Right Upper Extremity: Shoulder Flexion WFL. Shoulder abduction WFL. Elbow flexion WFL. Wrist flexion WFL. Functional opening and closing of hand WFL. Left Upper Extremity: Shoulder Flexion WFL. Shoulder abduction WFL. Elbow flexion WFL. Wrist flexion WFL. Functional opening and closing of hand WFL. Right Lower Extremity: SLR with kne immobilizer to 45 degrees. Hip abduction WFL. Knee flexion not taken due to Elizabeth dressing. Ankle dorsiflexion WFL. Ankle plantarflexion WFL. Left Lower Extremity: Hip flexion WFL. Hip abduction WFL. Knee flexion WFL. Ankle dorsiflexion WFL. Ankle plantarflexion WFL. Strength: Right Upper Extremity: Shoulder flexors 5/5. Shoulder abductors 5/5. Elbow flexors 5/5. Elbow extensors 5/5. Commercial Real Estate Broker strong. Left Upper Extremity: Shoulder flexors 5/5. Shoulder abductors 5/5. Elbow flexors 5/5. Elbow extensors 5/5. Commercial Real Estate Broker strong. Right Lower Extremity: Hip flexors 3-/5. Hip abductors 45. Knee flexors4/5. Knee extensors not assessed due to Elizabeth dressing. Ankle dorsiflexors 5/5. Ankle plantarflexors 5/5. Left Lower Extremity:Hip flexors 5/5. Hip abductors 5/5. Knee flexors 5/5. Knee extensors 5/5. Ankle dorsiflexors 5/5. Ankle plantarflexors 5/5. Sensation: Intact as to pain and pressure on the left LE, diminished on right LE. Bed Mobility/Transfers: Rolling CGA Supine to sit CGA Sit to supine CGA Sit to stand CGA Stand to sit CGA Bed to chair CGA Chair to bed CGA Gait: Patient is able to 80 feet doing amarilis-to gait pattern with three turns using FWW, CGA and IV pole management of this PT. Patient reported 1/10 pain on the right lateral thigh after gait activity but resolved with rest. Denies dizziness, chest pain, and headache. Balance: Static Sitting: Good Dynamic Sitting: Good Static Standing: Fair Dynamic Standing: Fair Special Tests: Mobility Limitations Standardized Measure [facility] AM-PAC 6 clicks Basic Mobility Inpatient Short Form: Raw Score: 18 CMS Score: 47% deficit Informed Consent/Education: Patient instructed in purpose of PT consult and plan of care. Patient was trained and instructed with seated level room exercises to be performed hourly in order to minimize pain, swelling, and limitation of range of motion: ankle pumping/circles x 30, [id number] sets x 10, SLR on R/L LE x 10 coordinated with deep breathing. Assessment: 82-year-old female with primary unilateral osteoarthritis of right knee status post right total knee arthroplasty. Patient presents with clinical signs and symptoms consistent with current/admitting diagnoses and postoperative status that have resulted to mobility limitations, gait instability, generalized weakness, and impairment of motor control as demonstrated by the following impairment level findings: 1. Decreased strength to R LE major muscle groups 2. Impaired sitting/standing balance 3. Impaired activity tolerance 4. Limitation of joint range of motion in right hip and knee joints Impairments are contributing to the following functional limitations: 1. Dependent bed mobility skills 2. Increased dependence with transfers 3. Inability to safely ambulate without assistive device and physical assistance 4. Increase completion time for mobility ADL performance 5. Increased fall risk 6. Inability to negotiate steps alone safely Patient is assessed as a Moderate 32206 complexity based on the following: History: 82-year-old cognitively intact female with independent premorbid level who has primary unilateral osteoarthritis of right knee and is status post right total knee arthroplasty Examination: Underlying impairments and functional limited Presentation: Evolving Decision Makin moderate complexity Goals: Goals X1 week 1. Supine-Sit independent 2. Sit-Supine independent 3. Sit-Stand independent 4. Stand-Sit independent 5. Bed-Chair independent 6. Chair-Bed independent 7. Independent gait on level surface with use of least restrictive device for at least 300 feet without report of pain nor dyspnea 8. Independent stair negotiation while holding onto bilateral rails for at least 5 steps without report of pain nor dyspnea 9. Independent with home exercise program 10. Good static and dynamic standing balance/tolerance Plan of Care/Treatment Plan: 1-2x/day, 7 days/week x 1 week. Plan of care has been reviewed with the LEARNING SUPPORT SERVICES DIRECTOR providing the service under Physical Therapy direction. Initiate Physical Therapy intervention for strengthening, bed mobility, transfers, gait, stairs, balance training, use of assistive device. DISCHARGE RECOMMENDATIONS: Patient will benefit from home health PT services in order to regain independent premorbid mobility level using the least restrictive assistive ambulatory device, assess home safety, establish/implement functional maintenance program for strengthening and fall reduction. TREATMENT CODE/TIME: 13553 for 25 minutes, 91915 for 14 minutes beginning at 14:20 PM. Thank you for this referral. Jenna Burrows, PT, DPT, CLT [facility]
--- NOTE | 2018-06-26 15:29 | IN_ITS ---
Date of service: 06/26/18 Time of Service: 14:20 PT Notes Inpatient Physical Therapy Evaluation Date: 06/26/2018 Referring Doctor: Rajiv Turner MD PT Orders: PT CONSULT: Ambulates postop right total knee. Get OOB ambulating in room. WBAT to right leg. Precautions: Fall. Standard. WBAT to right LE. Patient Profile/Admitting Diagnosis: Orders received for this 82-year-old female with primary unilateral osteoarthritis of right knee status post right total knee arthroplasty. PMHX: Medical History Heart murmur (Acute) History of rheumatic fever (Acute) Tendonitis of left rotator cuff (Acute) COPD (chronic obstructive pulmonary disease) Rectal bleed (Acute) Colitis (Acute) JEMIMA (acute kidney injury) (Acute) Primary osteoarthritis of right knee (Chronic) Urinary incontinence (Acute 06/05/14) Tinnitus of both ears (Acute 09/26/14) Syncope (Acute 05/15/14) Skin lesion of left ear (Acute 10/31/15) Sensorineural hearing loss, bilateral (Acute 09/13/13) Sciatica (Acute 02/19/11) Primary osteoarthritis involving multiple joints (Acute 10/30/14) Positive cardiac stress test (Acute 06/30/17) Osteopenia (Acute 02/19/11) Hyperlipidemia (Acute 02/19/11) Gastroesophageal reflux disease (Acute 02/19/11) Gastritis, chronic (Acute 12/13/16) Fibromyalgia (Acute 12/18/14) Essential hypertension (Chronic 07/27/12) Edema (Acute 09/05/15) Diverticulitis of colon (Acute 02/19/11) Diabetic neuropathy (Chronic 01/24/14) Diabetes mellitus with neuropathy (Chronic) Atherosclerosis of [place] coronary artery of [place] heart with angina pectoris (Acute) Angina at rest (Acute 02/19/11) CAD (coronary artery disease) (Chronic) Old myocardial infarction (Chronic) GERD (gastroesophageal reflux disease) (Chronic) Type 2 diabetes mellitus (Chronic) Diabetic neuropathy (Chronic) H/O diverticulitis of colon (Chronic) Hypertension (Chronic) Hearing loss of both ears (Chronic) Tinnitus (Chronic) Osteoporosis (Chronic) Sciatica (Chronic) Chest pain (Acute 04/28/14) Syncope (Acute 04/28/14) Chronic kidney disease, stage III (moderate) (Chronic) Surgical History S/P right knee arthroscopy (Acute) Extraction of cataract Colonoscopy - MAC (12/13/16) Coronary Stent (07/12/17) EGD - MAC (12/13/16) Tonsillectomy Postsurgical percutaneous transluminal coronary angioplasty status (Chronic) Social History/Home Situation: Patient lives with in a 1 floor house with 4 steps to enter and a rail on the left going up. Patient was independent with all aspects of ADLS without the need for an assistive ambulatory device nor adaptive equipment. Patient still drives. 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 Current Functional Limitations: Need for assistance with all transfers and ambulation task performance using FWW Equipment Owned/DME: [place] Subjective: Patient pleasant and cooperative. She is agreeable to a PT consult and treatment. She reports mild discomfort on her right lateral thigh after gait activity. She however denies any nausea,, dizziness, chest pain or headache throughout PT session. Objective: General Observation: Patient seen resting in bed in conversation with friends. Right knee immobilizer over Elizabeth dressing. Escalona catheter in place. IV in the left UE. NADIA on the left leg. Anti-DVT pump on left leg. Mental Status: Alert and oriented x3. Pain: 1/10 on the right lateral thigh after gait activity Vital Signs: In supine 149/70 3 mmHg, 99% on room air 7 bpm. In sitting, 163/75 mmHg and 8% on room air, 63 bpm. In standing, 159/75 mmHg, 98% on room air, 64 bpm. ROM: Right Upper Extremity: Shoulder Flexion WFL. Shoulder abduction WFL. Elbow fle xion WFL. Wrist flexion WFL. Functional opening and closing of hand WFL. Left Upper Extremity: Shoulder Flexion WFL. Shoulder abduction WFL. Elbow flexion WFL. Wrist flexion WFL. Functional opening and closing of hand WFL. Right Lower Extremity: SLR with kne immobilizer to 45 degrees. Hip abduction WFL. Knee flexion not taken due to Elizabeth dressing. Ankle dorsiflexion WFL. Ankle plantarflexion WFL. Left Lower Extremity: Hip flexion WFL. Hip abduction WFL. Knee flexion WFL. Ankle dorsiflexion WFL. Ankle plantarflexion WFL. Strength: Right Upper Extremity: Shoulder flexors 5/5. Shoulder abductors 5/5. Elbow flexors 5/5. Elbow extensors 5/5. Carbon Capture Power Plant Manager strong. Left Upper Extremity: Shoulder flexors 5/5. Shoulder abductors 5/5. Elbow flexors 5/5. Elbow extensors 5/5. Carbon Capture Power Plant Manager strong. Right Lower Extremity: Hip flexors 3-/5. Hip abductors 45. Knee flexors4/5. Knee extensors not assessed due to Elizabeth dressing. Ankle dorsiflexors 5/5. Ankle plantarflexors 5/5. Left Lower Extremity:Hip flexors 5/5. Hip abductors 5/5. Knee flexors 5/5. Knee extensors 5/5. Ankle dorsiflexors 5/5. Ankle plantarflexors 5/5. Sensation: Intact as to pain and pressure on the left LE, diminished on right LE. Bed Mobility/Transfers: Rolling CGA Supine to sit CGA Sit to supine CGA Sit to stand CGA Stand to sit CGA Bed to chair CGA Chair to bed CGA Gait: Patient is able to 80 feet doing amarilis-to gait pattern with three turns using FWW, CGA and IV pole management of this PT. Patient reported 1/10 pain on the right lateral thigh after gait activity but resolved with rest. Denies dizziness, chest pain, and headache. Balance: Static Sitting: Good Dynamic Sitting: Good Static Standing: Fair Dynamic Standing: Fair Special Tests: Mobility Limitations Standardized Measure [facility] AM-PAC 6 clicks Basic Mobility Inpatient Short Form: Raw Score: 18 CMS Score: 47% deficit Informed Consent/Education: Patient instructed in purpose of PT consult and plan of care. Patient was trained and instructed with seated level room exercises to be performed hourly in order to minimize pain, swelling, and limitation of range of motion: ankle pumping/circles x 30, [id number] sets x 10, SLR on R/L LE x 10 coordinated with deep breathing. Assessment: 82-year-old female with primary unilateral osteoarthritis of right knee status post right total knee arthroplasty. Patient presents with clinical signs and symptoms consistent with current/admitting diagnoses and postoperative status that have resulted to mobility limitations, gait instability, generalized weakness, and impairment of motor control as demonstrated by the following impairment level findings: 1. Decreased strength to R LE major muscle groups 2. Impaired sitting/standing balance 3. Impaired activity tolerance 4. Limitation of joint range of motion in right hip and knee joints Impairments are contributing to the following functional limitations: 1. Dependent bed mobility skills 2. Increased dependence with transfers 3. Inability to safely ambulate without assistive device and physical assistance 4. Increase completion time for mobility ADL performance 5. Increased fall risk 6. Inability to negotiate steps alone safely Patient is assessed as a Moderate 99538 complexity based on the following: History: 82-year-old cognitively intact female with independent premorbid level who has primary unilateral osteoarthritis of right knee and is status post right total knee arthroplasty Examination: Underlying impairments and functional limited Presentation: Evolving Decision Makin moderate complexity Goals: Goals X1 week 1. Supine-Sit independent 2. Sit-Supine independent 3. Sit-Stand independent 4. Stand-Sit independent 5. Bed-Chair independent 6. Chair-Bed independent 7. Independent gait on level surface with use of least restrictive device for at least 300 feet without report of pain nor dyspnea 8. Independent stair negotiation while holding onto bilateral rails for at least 5 steps without report of pain nor dyspnea 9. Independent with home exercise program 10. Good static and dynamic standing balance/tolerance Plan of Care/Treatment Plan: 1-2x/day, 7 days/week x 1 week. Plan of care has been reviewed with the SUPERVISOR BRINE providing the service under Physical Therapy direction. Initiate Physical Therapy intervention for strengthening, bed mobility, transfers, gait, stairs, balance training, use of assistive device. DISCHARGE RECOMMENDATIONS: Patient will benefit from home health PT services in order to regain independent premorbid mobility level using the least restrictive assistive ambulatory device, assess home safety, establish/implement functional maintenance program for strengthening and fall reduction. TREATMENT CODE/TIME: 20908 for 25 minutes, 27696 for 14 minutes beginning at 14:20 PM. Thank you for this referral. Jenna Burrows, PT, DPT, CLT [facility]
[2018-06-26] MEDS: Normal Saline Flush 10 ML SYR IV (18:26)
[2018-06-26] MEDS: Lovastatin 20 MG TAB 10 MG PO (20:10)
[2018-06-26] MEDS: Metoprolol 25 MG TAB PO (20:11)
[2018-06-26] MEDS: Pregabalin 100 MG CAP PO (20:11)
[2018-06-26] MEDS: Nortriptyline 10 MG CAP PO (21:31)
[2018-06-26] MEDS: Insulin Glargine 300 UNITS/3 ML PEN 38 UNITS SC (21:32)
[2018-06-27] VITALS (10 sets, daily range): BP systolic 126–168; BP diastolic 64–83; PULSE 66–83; RESP 16–22; TEMP 36.9–38.7; O2SAT 92–96
[2018-06-27] MEDS: ceFAZolin 2,000 MG in Normal Saline 100 ML 200 MG IVPB ×2 (01:52→08:26)
[2018-06-27] MEDS: POTASSIUM CHLORIDE/0.9% NACL 1,000 ML 125 MEQ IV (03:08)
[2018-06-27] MEDS: Ketorolac 15 MG/ML VIAL IVP ×4 (05:42→23:12)
[2018-06-27 07:07] LABS: HCT 31.4 % (36.0-46.0); HGB 10.3 g/dL (12.0-15.5); Mean Corp. HGB Concentration 32.8 g/dL (32.0-36.0); Mean Corpuscular Hemoglobin 29.3 pg (27.0-33.0); Mean Corpuscular Volume 89.5 fL (80-95); Mean Platelet Volume 10.4 fL (8.0-11.0); Platelet Count 192 x1000/uL (130-400); RBC 3.51 m/cumm (4.00-5.20); RBC Distribution Width 13.3 % (11.7-14.6)
--- NOTE | 2018-06-27 08:09 | PDOC.CMIN ---
- If Service Date Differs Date of service: 06/27/18 Time of Service: 08:09 Care Management Initial Assess REASON FOR HOSPITALIZATION:: Post-Op (R) total knee PAST MEDICAL HISTORY/PAST SURGICAL HISTORY:: Heart murmur (Acute). History of rheumatic fever (Acute). Tendonitis of left rotator cuff (Acute). COPD (chronic obstructive pulmonary disease). Rectal bleed (Acute). Colitis (Acute). JEMIMA (acute kidney injury) (Acute). Primary osteoarthritis of right knee (Chronic). Urinary incontinence (Acute 06/05/14). Tinnitus of both ears (Acute 09/26/14). Syncope (Acute 05/15/14). Skin lesion of left ear (Acute 10/31/15). Sensorineural hearing loss, bilateral (Acute 09/13/13). Sciatica (Acute 02/19/11). Primary osteoarthritis involving multiple joints (Acute 10/30/14). Positive cardiac stress test (Acute 06/30/17). Osteopenia (Acute 02/19/11). Hyperlipidemia (Acute 02/19/11). Gastroesophageal reflux disease (Acute 02/19/11). Gastritis, chronic (Acute 12/13/16). Fibromyalgia (Acute 12/18/14). Essential hypertension (Chronic 07/27/12). Edema (Acute 09/05/15). Diverticulitis of colon (Acute 02/19/11). Diabetic neuropathy (Chronic 01/24/14). Diabetes mellitus with neuropathy (Chronic). Atherosclerosis of [place] coronary artery of [place] heart with angina pectoris (Acute). Angina at rest (Acute 02/19/11). CAD (coronary artery disease) (Chronic). Old myocardial infarction (Chronic). GERD (gastroesophageal reflux disease) (Chronic). Type 2 diabetes mellitus (Chronic). Diabetic neuropathy (Chronic). H/O diverticulitis of colon (Chronic). Hypertension (Chronic). Hearing loss of both ears (Chronic). Tinnitus (Chronic). Osteoporosis (Chronic). Sciatica (Chronic). Chest pain (Acute 04/28/14). Syncope (Acute 04/28/14). Chronic kidney disease, stage III (moderate) (Chronic). S/P right knee arthroscopy (Acute). Extraction of cataract. Colonoscopy - MAC (12/13/16). Coronary Stent (07/12/17). EGD - MAC (12/13/16). Tonsillectomy. Postsurgical percutaneous transluminal coronary angioplasty status (Chronic) PREVIOUS FUNCTIONAL STATUS/SOCIAL/FAMILY SUPPORTS:: Sonia resides with her friend Jessenia in [facility]. She reports that she is independent at baseline, drives, and manages ADL's. Sonia states that she does not have family locally, and has nieces and nephews in [place] whom are supportive. CURRENT FUNCTIONAL STATUS:: Currently Sonia is sitting up in her chair when this investigative writer visits. She is pleasant and receptive to discussion. ADVANCE DIRECTIVES:: None on file Has patient been provided with information about the portal?: Yes Did the patient sign up for the portal?: No (already signed up) CODE STATUS:: Full Code INSURANCE COVERAGE / FINANCIAL ISSUES:: MCR, CRISTIAN CURRENT HOME/COMMUNITY SERVICES/EQUIPMENT:: Currently Sonia has no services in the community. she has a cane at home. PRIMARY CARE PHYSICIAN:: Savanna Guillen POTENTIAL DISCHARGE NEEDS:: F/U appointment with Dr. Turner. DME - FWW from [place] per Pt choice. PT - Outpatient PT with [facility] per Pt choice PATIENT/FAMILY EDUCATION NEEDS:: Review DC instructions, any limitations, and ongoing DC planning discussion. Discuss 'Ask Me Three' ANTICIPATED BARRIERS TO DISCHARGE:: None identified at this time TRANSPORTATION:: Via private vehicle with jaswant Ruelas PLAN:: Sonia will return home with outpatient PT through [facility] in [facility] once medically cleared. She will F/U with Dr. Turner and plan of care as prescribed. Sonia's friend Jessenia will transport when ready.
--- NOTE | 2018-06-27 08:22 | INITIAL_ITS ---
- If Service Date Differs Date of service: 06/27/18 Time of Service: 08:09 Care Management Initial Assess REASON FOR HOSPITALIZATION:: Post-Op (R) total knee PAST MEDICAL HISTORY/PAST SURGICAL HISTORY:: Heart murmur (Acute). History of rheumatic fever (Acute). Tendonitis of left rotator cuff (Acute). COPD (chronic obstructive pulmonary disease). Rectal bleed (Acute). Colitis (Acute). JEMIMA (acute kidney injury) (Acute). Primary osteoarthritis of right knee (Chronic). Urinary incontinence (Acute 06/05/14). Tinnitus of both ears (Acute 09/26/14). Syncope (Acute 05/15/14). Skin lesion of left ear (Acute 10/31/15). Sensorineural hearing loss, bilateral (Acute 09/13/13). Sciatica (Acute 02/19/11). Primary osteoarthritis involving multiple joints (Acute 10/30/14). Positive cardiac stress test (Acute 06/30/17). Osteopenia (Acute 02/19/11). Hyperlipidemia (Acute 02/19/11). Gastroesophageal reflux disease (Acute 02/19/11). Gastritis, chronic (Acute 12/13/16). Fibromyalgia (Acute 12/18/14). Essential hypertension (Chronic 07/27/12). Edema (Acute 09/05/15). Diverticulitis of colon (Acute 02/19/11). Diabetic neuropathy (Chronic 01/24/14). Diabetes mellitus with neuropathy (Chronic). Atherosclerosis of [place] coronary artery of [place] heart with angina pectoris (Acute). Angina at rest (Acute 02/19/11). CAD (coronary artery disease) (Chronic). Old myocardial infarction (Chronic). GERD (gastroesophageal reflux disease) (Chronic). Type 2 diabetes mellitus (Chronic). Diabetic neuropathy (Chronic). H/O diverticulitis of colon (Chronic). Hypertension (Chronic). Hearing loss of both ears (Chronic). Tinnitus (Chronic). Osteoporosis (Chronic). Sciatica (Chronic). Chest pain (Acute 04/28/14). Syncope (Acute 04/28/14). Chronic kidney disease, stage III (moderate) (Chronic). S/P right knee arthroscopy (Acute). Extraction of cataract. Colonoscopy - MAC (12/13/16). Coronary Stent (07/12/17). EGD - MAC (12/13/16). Tonsillectomy. Postsurgical percutaneous transluminal coronary angioplasty status (Chronic) PREVIOUS FUNCTIONAL STATUS/SOCIAL/FAMILY SUPPORTS:: Sonia resides with her friend Jessenia in [facility]. She reports that she is independent at baseline, drives, and manages ADL's. Sonia states that she does not have family locally, and has nieces and nephews in [place] whom are supportive. CURRENT FUNCTIONAL STATUS:: Currently Sonia is sitting up in her chair when this marketing copywriter visits. She is pleasant and receptive to discussion. ADVANCE DIRECTIVES:: None on file Has patient been provided with information about the portal?: Yes Did the patient sign up for the portal?: No (already signed up) CODE STATUS:: Full Code INSURANCE COVERAGE / FINANCIAL ISSUES:: MCR, CRISTIAN CURRENT HOME/COMMUNITY SERVICES/EQUIPMENT:: Currently Sonia has no services in the community. she has a cane at home. PRIMARY CARE PHYSICIAN:: Savanna Guillen POTENTIAL DISCHARGE NEEDS:: F/U appointment with Dr. Turner. DME - FWW from [place] per Pt choice. PT - Outpatient PT with [facility] per Pt choice PATIENT/FAMILY EDUCATION NEEDS:: Review DC instructions, any limitations, and ongoing DC planning discussion. Discuss 'Ask Me Three' ANTICIPATED BARRIERS TO DISCHARGE:: None identified at this time TRANSPORTATION:: Via private vehicle with jaswant Ruelas PLAN:: Sonia will return home with outpatient PT through [facility] in [facility] once medically cleared. She will F/U with Dr. Turner and plan of care as prescribed. Sonia's friend Jessenia will transport when ready.
[2018-06-27] MEDS: Oxybutynin-CR 5 MG TABCR PO (08:25)
[2018-06-27] MEDS: Docusate Sodium 100 MG CAP PO ×3 (08:25→19:44)
[2018-06-27] MEDS: Lisinopril 5 MG TAB PO (08:25)
[2018-06-27] MEDS: Multivitamin w/Minerals TAB 1 TAB PO (08:25)
[2018-06-27] MEDS: Pregabalin 100 MG CAP PO ×2 (08:25→19:43)
[2018-06-27] MEDS: Pantoprazole 40 MG TABCR PO (08:25)
[2018-06-27] MEDS: Metoprolol 25 MG TAB PO ×2 (08:26→19:43)
--- NOTE | 2018-06-27 09:29 | ROE_ITS ---
DATE OF PROCEDURE: June 26, 2018 PREOPERATIVE DIAGNOSIS: Osteoarthritis right knee. POSTOPERATIVE DIAGNOSIS: Same. PROCEDURE: Right total knee arthroplasty. COMPONENTS USED: 1. Size 2.5 femoral component, posterior cruciate retaining. 2. Size 2.5 tibial component. 3. Size 2.5, 10 mm posterior cruciate retaining polyethylene tibial insert. 4. 32 mm tri-pronged patella. All components were cemented. ANESTHESIA: Spinal, Nick Herrera CRNA SURGEON: Rajiv Turner M.D. [employer] ASSOCIATE: Sierra Lang INDICATIONS: This is an 82-year-old white female with increasing pain and disability due to right kn ee pain over the last two years. She has deteriorated to the point where she used to walk 3 to 5 mil es a day, and now she can't walk any distance more than a block because of the pain. Conservative tr eatment has not helped, including steroid injections. Total knee replacement was recommended to tran viate her pain and restore some of her previous ambulatory abilities. The risks and complications of the procedure were explained to the patient in detail preoperatively. PROCEDURE: The patient was taken to the Operating Room on 06/26/18. She was placed supine on the ope rating table. An adductor canal block was performed. The patient was then positioned sitting up and a spinal anesthetic was administered. She was then placed back supine on the table. A rolled towel was placed under the right buttock. A proximal tourniquet was applied to her right thigh and then t he right lower extremity was prepped and draped free in the usual sterile fashion. Under proximal tourniquet control, an anterior midline incision was beginning just distal to the tibi al tubercle and extending four inches proximal to the patella. The incision was carried down through the fascia. The subcutaneous veins were cauterized. A medial parapatellar capsular incision was th en made, extending proximally and longitudinally in line with the quadriceps tendon. A medial subper iosteal release was performed. The patella was everted. Medial and lateral meniscectomies were perf ormed and the ACL was sacrificed. The posterior cruciate ligament was recessed. The distal femur was resected using intramedullary alignment guides and jigs. The patient was found to require a size 2.5 femoral component. The proximal tibia was then resected using extramedullary a lignment guides and jig. The patient was found to require a size 2.5 tibial component. The keel for the tibial component was then reamed and punched in proper rotation alignment. Trial reduction show ed that a 10 mm insert allowed the knee to come to full extension and was stable from 0 to 90 degrees of flexion to any varus and valgus stressing. Finally the patella was resected using the patellar resection guide. 17 mm thickness of the patella was left after resection. Using a drill guide for the tri-pronged patella, 32 mm, the three holes we re drilled for the patellar component in proper rotation alignment. The proximal tibia was prepared for cementing using pulse irrigation lavage of saline solution and dr luan with peroxide-soaked strip sponges. One batch of gentamycin-impregnated methylmethacrylate was vacuum mixed and hand packed onto the prepared tibia. The tibial component was inserted and packed i nto place and further pressurized using the trial components and extending the knee. Excess cements was trimmed from the margins of the tibial component while the cement was still soft using the plasti c cement removal tool. When the first batch of methylmethacrylate had cured, the trial components we re removed. The distal femur and patella were prepared for cementing with pulse irrigation lavage of saline solution and drying with peroxide-soaked strip sponges. Using the trial femoral component an d a drill, holes for the lugs of the femoral component were drilled into the femoral condyle. The in tramedullary hole for the alignment oanh was plugged with bone resected from the distal femur. Anothe r batch of gentamycin-impregnated methylmethacrylate was vacuum mixed and was hand packed onto the pr epared femur and patella and on the posterior surfaces of the components. The femoral component was impacted into place with the impactor and mallet. It was further pressurized using the trial insert and extending the knee. Excess cement was trimmed from the margins of the femoral component using th e plastic cement removal tool. The patellar component was pressurized using the patellar clamp, and once again excess cement was trimmed from the margins of the patellar component with the plastic ceme nt removal tool while the cement was still soft. Patellar tracking was checked using the rule-of-no- thumb. The patella tracked anatomically. The trial insert was removed. The posterior recesses were checked and any residual bone or cement debris was removed at this point. The knee was irrigated a final time with pulse irrigation lavage of saline solution. The actual insert size 2.5, 10 mm poste rior cruciate retaining was then placed onto the tibial component and reduced onto the femoral condyl es. The knee was flexed over soft goods. Betadine and saline solution was inserted into the knee an d allowed to stay for a minute before suctioning. The knee joint capsule and wound margins were infi ltrated with 0.5% Marcaine with an epinephrine solution for postoperative analgesia. The medial para patellar capsular incision and the incision in the quadriceps tendon were repaired with interrupted f [id number] sutures of #1 Vicryl suture material. The subcu was approximated with interrupted #2- 0 Vicryl sutures and the skin edges were approximated with skin london. The patient received 1 gram of tranexamic acid prior to tourniquet inflation, along with 2 grams of Ancef. The patient received 1 additional gram of tranexamic acid when the tourniquet was deflated. Sterile dressings were appli ed. A long-leg Elizabeth dressing was applied to the right lower extremity and a knee immobilizer splint was placed over the Elizabeth compressive dressing to maintain the knee in extension. The tourniquet wa s deflated. The patient was discharged to the recovery room in good condition.
[2018-06-27] MEDS: Enoxaparin 40 MG/0.4 ML SYR SC (09:50)
--- NOTE | 2018-06-27 09:58 | NUR.NOTE ---
Nursing Note: Patient up walking in the [facility] with PT around 0930, became nauseous and was brought back to room via wheelchair. Patient states nausea resolved after sitting and resting.
[2018-06-27] MEDS: oxyCODONE-CR 10 MG TABCR PO ×2 (11:59→23:11)
--- NOTE | 2018-06-27 13:39 | W.PM.PROGNOT ---
Date of Service Date of service: 06/27/18 Time of Service: 13:39 Assessment and Plan (1) Status post total knee replacement, right: Current visit: Yes Status: Acute Assessment: Stable postop day #1 right total knee replacement. She is tolerating the pain well. She is actually moving extremely well. I think we can accelerate her rehab as a result. Plan: Have PT remove the Elizabeth dressing this afternoon. We will have her put on a long-leg Prakash on the right. We will start her on Cryo/Cuff in the right knee 4 times a day for an hour. PT will begin range of motion exercises to her right knee. We will discharge her home when she is independent with transfers and ambulation and taking only p.o. pain meds. Recheck hemoglobin tomorrow. Subjective Interval history since last seen: She feels really good today. Pain is minimal and well controlled by her medication. Exam Narrative Exam Narrative: She is afebrile vital signs are stable. Intakes and outputs are good. Hemoglobin is 10.3 g today. She transfers with minimal assist. She is already been walking outside the room. Neurovascular examination right foot completely normal. Objective Objective Clinical Data: Abnormal lab results 06/27/18 Range/Units 06:50 RBC 3.51 L (4.00-5.20) m/cumm Hgb 10.3 L (12.0-15.5) g/dL Hct 31.4 L (36.0-46.0) % Vital Signs Temperature 38.3 C H 06/27/18 11:50 Temperature Source Tympanic 06/27/18 11:50 Pulse 83 06/27/18 11:50 Pulse Rhythm Regular 06/27/18 07:26 Respiratory Rate 16 06/27/18 11:50 Respiratory Effort 06/27/18 07:26 Respiratory Depth Normal 06/27/18 07:26 Respiratory Pattern Normal 06/27/18 07:26 Blood Pressure 168/72 H 06/27/18 11:50 Pulse Oximetry 95 06/27/18 11:50 Respiratory End-tidal CO2 29 06/26/18 10:25 Oxygen Delivery Method Room Air 06/27/18 11:50 Oxygen Flow Rate 0 06/27/18 11:50 Pain Level 1 06/27/18 11:59 Intake & Output 06/26/18 06/27/18 06/27/18 23:59 11:59 23:59 Intake Total 2190.500 / 2680.500 1929 / 2029 100 / 2030 Output Total 550 / 725 500 / 900 400 / 900 Balance 1640.500 / 0459.023 5119 / 1130 -300 / 1130 Intake: IV 1410.500 / 4118.160 4000 / 1150 100 / 1150 Oral 780 / 800 880 / 880 Output: Urine 550 / 675 500 / 900 400 / 900 Other: Urine Color Yellow Yellow Light Emilie Urine Appearance Clear Clear Clear Laboratory Results WBC 9.50 k/cumm (4.4-10.8) 06/27/18 06:50 RBC 3.51 m/cumm (4.00-5.20) L 06/27/18 06:50 Hgb 10.3 g/dL (12.0-15.5) L 06/27/18 06:50 Hct 31.4 % (36.0-46.0) L 06/27/18 06:50 MCV 89.5 fL (80-95) 06/27/18 06:50 MCH 29.3 pg (27.0-33.0) 06/27/18 06:50 MCHC 32.8 g/dL (32.0-36.0) 06/27/18 06:50 RDW 13.3 % (11.7-14.6) 06/27/18 06:50 Plt Count 192 x1000/uL (130-400) 06/27/18 06:50 MPV 10.4 fL (8.0-11.0) 06/27/18 06:50
--- NOTE | 2018-06-27 13:43 | PGE_ITS ---
Date of Service Date of service: 06/27/18 Time of Service: 13:39 Assessment and Plan (1) Status post total knee replacement, right: Current visit: Yes Status: Acute Assessment: Stable postop day #1 right total knee replacement. She is tolerating the pain well. She is actually moving extremely well. I think we can accelerate her rehab as a result. Plan: Have PT remove the Elizabeth dressing this afternoon. We will have her put on a long-leg Prakash on the right. We will start her on Cryo/Cuff in the right knee 4 times a day for an hour. PT will begin range of motion exercises to her right knee. We will discharge her home when she is independent with transfers and ambulation and taking only p.o. pain meds. Recheck hemoglobin tomorrow. Subjective Interval history since last seen: She feels really good today. Pain is minimal and well controlled by her medication. Exam Narrative Exam Narrative: She is afebrile vital signs are stable. Intakes and outputs are good. Hemoglobin is 10.3 g today. She transfers with minimal assist. She is already been walking outside the room. Neurovascular examination right foot completely normal. Objective Objective Clinical Data: Abnormal lab results 06/27/18 Range/Units 06:50 RBC 3.51 L (4.00-5.20) m/cumm Hgb 10.3 L (12.0-15.5) g/dL Hct 31.4 L (36.0-46.0) % Vital Signs Temperature 38.3 C H 06/27/18 11:50 Temperature Source Tympanic 06/27/18 11:50 Pulse 83 06/27/18 11:50 Pulse Rhythm Regular 06/27/18 07:26 Respiratory Rate 16 06/27/18 11:50 Respiratory Effort 06/27/18 07:26 Respiratory Depth Normal 06/27/18 07:26 Respiratory Pattern Normal 06/27/18 07:26 Blood Pressure 168/72 H 06/27/18 11:50 Pulse Oximetry 95 06/27/18 11:50 Respiratory End-tidal CO2 29 06/26/18 10:25 Oxygen Delivery Method Room Air 06/27/18 11:50 Oxygen Flow Rate 0 06/27/18 11:50 Pain Level 1 06/27/18 11:59 Intake & Output 06/26/18 06/27/18 06/27/18 23:59 11:59 23:59 Intake Total 2190.500 / 2680.500 1929 / 2029 100 / 2030 Output Total 550 / 725 500 / 900 400 / 900 Balance 1640.500 / 7054.799 5940 / 1130 -300 / 1130 Intake: IV 1410.500 / 6063.664 4843 / 1150 100 / 1150 Oral 780 / 800 880 / 880 Output: Urine 550 / 675 500 / 900 400 / 900 Other: Urine Color Yellow Yellow Light Emilie Urine Appearance Clear Clear Clear Laboratory Results WBC 9.50 k/cumm (4.4-10.8) 06/27/18 06:50 RBC 3.51 m/cumm (4.00-5.20) L 06/27/18 06:50 Hgb 10.3 g/dL (12.0-15.5) L 06/27/18 06:50 Hct 31.4 % (36.0-46.0) L 06/27/18 06:50 MCV 89.5 fL (80-95) 06/27/18 06:50 MCH 29.3 pg (27.0-33.0) 06/27/18 06:50 MCHC 32.8 g/dL (32.0-36.0) 06/27/18 06:50 RDW 13.3 % (11.7-14.6) 06/27/18 06:50 Plt Count 192 x1000/uL (130-400) 06/27/18 06:50 MPV 10.4 fL (8.0-11.0) 06/27/18 06:50
--- NOTE | 2018-06-27 13:45 | PT.INTREAT ---
Date of service: 06/27/18 Time of Service: 13:45 PT Notes Inpatient Physical Therapy Treatment Note [facility] Date: 06/27/18 PRECAUTIONS:Fall, WBAT on R SUBJECTIVE: Sonia reports that she is feeling pretty good with minimal pain in R knee today. OBJECTIVE: PAIN: Patient c/o R LE discomfort with gait training. BED MOBILITY/TRANSFERS Sit-stand: SBA Stand-sit: SBA GAIT Assistive Device: FWW Weight bearing: WBAT on R Assist: CGA-SBA in a.m.; SBA in p.m. Distance: 100' in both a.m. and p.m. Deviation: Cueing for FWW mechanics, posture; c/o nausea in a.m. THEREX: Patient completed a LE strengthening and stabilization program, as per flow sheet. Following removal of Elizabeth Wrap, patient was able to perform active SLR x10. Ended p.m. session with cryocuff to R knee. STAIRS: Up/down 3x4 and 2x6 using B rails and a step-to pattern with supervision. REMOVAL OF ELIZABETH WRAP: Incision clean, dry, 33 london intact. No blistering, redness, nor sensitivity. Replaced with Xeroform gauze, 4x4 gauze, tape, and thigh-high NADIA stocking. ASSESSMENT: Patient tolerated session with minimal c/o pain in R LE with gait training. Patient was able to tolerate a progression in gait distance with FWW support and SBA. She would benefit from continued strengthening, as well as gait and transfer training for improved mobility and improved ability to perform daily functional tasks. PLAN: Continue with PT's POC TREATMENT CODE/TIME: Session 1: 30 minutes; [id number], [id number] Session 2: 50 minutes; [id number] x2, [id number]
--- NOTE | 2018-06-27 13:46 | PHARADMIT ---
Addendum entered by Jenny Saunders 06/28/18 16:31: Pharmacy Note Subjective pt vomited during PT this morning, refused PT this afternoon Objective vs ok, FS 128, pain 0 Assessment ketorolac stopped Plan Original Note: Admission Pharmacy Clinical Review post-op R total knee Code Status Full Code Current Weight 88.9 kg Renally Cleared and Narrow Therapeutic Index Meds Crcl ~47.2 mL/min using adjusted body weight current meds okay QTc Value / Action Taken n/a BP Control, Fever BP 168/72 Tmax 38.3 Electrolytes reviewed n/a DVT Prophylaxis enoxaparin Opiate Usage / Scheduled Bowel Regimen Ordered paxton and prn for both Plt/SCr for Heparin / Enoxaparin plt 192 SCr 1.01 (from 06/15/18) INR for Warfarin n/a H/H stable, WBC/Bands h/h 10.3/31.4 wbc 9.50 Antibiotic appropriateness none Cultures and Sensitivities none Surgical ABX d/c within 24 hr yes DM control / Insulin Dosing FSBG 202 scheduled glargine, no aspart Heart Failure (Check EF%) (AMY's, B-Block, Diuretics) lisinopril, metoprolol, IV to PO Switch n/a Home Meds Reviewed yes Home Meds Not Ordered albuterol, aspirin, loperamide, varicella-zoster, zinc oxide Comments
--- NOTE | 2018-06-27 13:50 | PTTR_ITS ---
Date of service: 06/27/18 Time of Service: 13:45 PT Notes Inpatient Physical Therapy Treatment Note [facility] Date: 06/27/18 PRECAUTIONS:Fall, WBAT on R SUBJECTIVE: Sonia reports that she is feeling pretty good with minimal pain in R knee today. OBJECTIVE: PAIN: Patient c/o R LE discomfort with gait training. BED MOBILITY/TRANSFERS Sit-stand: SBA Stand-sit: SBA GAIT Assistive Device: FWW Weight bearing: WBAT on R Assist: CGA-SBA in a.m.; SBA in p.m. Distance: 100' in both a.m. and p.m. Deviation: Cueing for FWW mechanics, posture; c/o nausea in a.m. THEREX: Patient completed a LE strengthening and stabilization program, as per flow sheet. Following removal of Elizabeth Wrap, patient was able to perform active SLR x10. Ended p.m. session with cryocuff to R knee. STAIRS: Up/down 3x4 and 2x6 using B rails and a step-to pattern with supervis ion. REMOVAL OF ELIZABETH WRAP: Incision clean, dry, 33 london intact. No blistering, redness, nor sensitivity. Replaced with Xeroform gauze, 4x4 gauze, tape, and thigh-high NADIA stocking. ASSESSMENT: Patient tolerated session with minimal c/o pain in R LE with gait training. Patient was able to tolerate a progression in gait distance with FWW support and SBA. She would benefit from continued strengthening, as well as gait and transfer training for improved mobility and improved ability to perform daily functional tasks. PLAN: Continue with PT's POC TREATMENT CODE/TIME: Session 1: 30 minutes; [id number], [id number] Session 2: 50 minutes; [id number] x2, [id number]
[2018-06-27] MEDS: Normal Saline Flush 10 ML SYR IV ×3 (13:58→23:12)
--- NOTE | 2018-06-27 14:55 | CHAPLAIN ---
Sonia and I remember each other from her admission not long ago for colitis. Her knee surgery was yesterday and she said so far she is doing well. Her other knee is fine, so she hopes that after recovering from surgery she feel really strong and be able to get out walking. She is a member of [facility] although has not attended in many years and was not interested in my contacting the jehovah's witness for her. Sonia seems to be very supported by Jessenia, with whom she lives. They were both working on completing their Advance Directives
[2018-06-27] MEDS: Lovastatin 20 MG TAB 10 MG PO (19:43)
[2018-06-27] MEDS: Acetaminophen 325 MG TAB 650 MG PO (19:47)
[2018-06-27] MEDS: Insulin Glargine 300 UNITS/3 ML PEN 38 UNITS SC (21:31)
[2018-06-27] MEDS: Nortriptyline 10 MG CAP PO (21:32)
[2018-06-28] VITALS (13 sets, daily range): BP systolic 103–162; BP diastolic 61–75; PULSE 76–92; RESP 16–20; TEMP 36.8–38.1; O2SAT 86–99
[2018-06-28] MEDS: Ketorolac 15 MG/ML VIAL IVP (05:11)
[2018-06-28] MEDS: Normal Saline Flush 10 ML SYR IV ×2 (05:11→08:20)
[2018-06-28 07:31] LABS: HCT 29.9 % (36.0-46.0); HGB 9.7 g/dL (12.0-15.5); Mean Corp. HGB Concentration 32.4 g/dL (32.0-36.0); Mean Corpuscular Hemoglobin 29.2 pg (27.0-33.0); Mean Corpuscular Volume 90.1 fL (80-95); Mean Platelet Volume 11.4 fL (8.0-11.0); Platelet Count 173 x1000/uL (130-400); RBC 3.32 m/cumm (4.00-5.20); RBC Distribution Width 13.3 % (11.7-14.6); White Blood Cell Count 8.84 k/cumm (4.4-10.8)
[2018-06-28] MEDS: Pantoprazole 40 MG TABCR PO (08:20)
[2018-06-28] MEDS: Pregabalin 100 MG CAP PO ×2 (08:20→20:15)
[2018-06-28] MEDS: Lisinopril 5 MG TAB PO (08:20)
[2018-06-28] MEDS: Metoprolol 25 MG TAB PO ×2 (08:20→20:15)
[2018-06-28] MEDS: Docusate Sodium 100 MG CAP PO ×3 (08:20→20:17)
[2018-06-28] MEDS: Oxybutynin-CR 5 MG TABCR PO (08:21)
[2018-06-28] MEDS: Multivitamin w/Minerals TAB 1 TAB PO (08:21)
[2018-06-28] MEDS: Enoxaparin 40 MG/0.4 ML SYR SC (10:51)
[2018-06-28] MEDS: oxyCODONE-CR 10 MG TABCR PO (12:07)
--- NOTE | 2018-06-28 13:24 | W.NEUROCONSU ---
Date of service: 06/28/18 Time of Service: 13:24 Assessment and Plan (1) Spell of behavior change: Current visit: Yes Status: Acute Ms. Quiroz is an 82-year-old, right-handed woman who is postop day #2 of a right total knee replacement. She had a spell of unwellness associated with right leg weakness likely due to fatigue and overuse followed by unresponsiveness and emesis without loss of awareness or consciousness. Her neurological exam was significant for only right hip flexor weakness which seems to be consistent with her postoperative status. She has no other neurological deficits. Etiology of her spell seems most likely to be secondary to acute/subacute postoperative medication-related illness. I do not think her symptoms are suggestive of TIA or seizure. She should however resume aspirin 81 mg daily. Please call with any further questions or concerns. DISCLAIMER: This note was created using [employer] voice recognition software. History of Present Illness Chief Complaint: spell Narrative: Handedness: right. HPI: Ms. Quiroz is an 82-year-old woman with a past medical history of hypertension, hyperlipidemia, type 2 diabetes, and coronary artery disease status post previous DC with cardiac stents placed in 2001 and 2008. She stopped aspirin the day prior to surgery. She underwent a right total knee replacement on 06/26/2018. She has recovered remarkably well and was already walking yesterday (06/27/2018). This morning after working with physical therapy around 7:45 AM, she developed nausea and emesis. Approximately 15 minutes later, she was walked to the bathroom with the aid. Upon returning from the bathroom she had some retropulsion. She was able to eat breakfast and take her morning medications. At 9:15 AM, she was working with physical therapy again. She tells me that she suddenly felt like her right leg was too weak to carry on. She was helped to a seat by the physical therapist. At that point, Ms. Quiroz recalls feeling quite nauseated. Physical therapy noted that she was pale and unresponsive with eyes open for approximately 10 seconds. Ms. Quiroz does have some recollection that the therapist was trying to talk with her. She suddenly began vomiting again. She had emesis for approximately 10 minutes. This was mainly mucus. Her O2 sats were slightly low afterwards but spontaneously returned to normal. She has since felt back to normal though with reduced appetite. She has had expected hyperthermia after her operation. She has no prior history of seizures or head injuries. She does not recall that she has ever been on narcotic pain medications before. She feels her right leg is stronger than earlier. It is difficult to know what strength she should be at postoperatively as she does have waxing and waning strength expectedly. She has been on Lovenox. Consults Requesting physician: Rajiv Turner Review of Systems Review of Systems All systems reviewed & are unremarkable except as noted in HPI and below [facility] Medical History Heart murmur (Acute) History of rheumatic fever (Acute) Tendonitis of left rotator cuff (Acute) COPD (chronic obstructive pulmonary disease) Rectal bleed (Acute) Colitis (Acute) JEMIMA (acute kidney injury) (Acute) Primary osteoarthritis of right knee (Chronic) Urinary incontinence (Acute 06/05/14) Tinnitus of both ears (Acute 09/26/14) Syncope (Acute 05/15/14) Skin lesion of left ear (Acute 10/31/15) Sensorineural hearing loss, bilateral (Acute 09/13/13) Sciatica (Acute 02/19/11) Primary osteoarthritis involving multiple joints (Acute 10/30/14) Positive cardiac stress test (Acute 06/30/17) Osteopenia (Acute 02/19/11) Hyperlipidemia (Acute 02/19/11) Gastroesophageal reflux disease (Acute 02/19/11) Gastritis, chronic (Acute 12/13/16) Fibromyalgia (Acute 12/18/14) Essential hypertension (Chronic 07/27/12) Edema (Acute 09/05/15) Diverticulitis of colon (Acute 02/19/11) Diabetic neuropathy (Chronic 01/24/14) Diabetes mellitus with neuropathy (Chronic) Atherosclerosis of [place] coronary artery of [place] heart with angina pectoris (Acute) Angina at rest (Acute 02/19/11) CAD (coronary artery disease) (Chronic) Old myocardial infarction (Chronic) GERD (gastroesophageal reflux disease) (Chronic) Type 2 diabetes mellitus (Chronic) Diabetic neuropathy (Chronic) H/O diverticulitis of colon (Chronic) Hypertension (Chronic) Hearing loss of both ears (Chronic) Tinnitus (Chronic) Osteoporosis (Chronic) Sciatica (Chronic) Chest pain (Acute 04/28/14) Syncope (Acute 04/28/14) Chronic kidney disease, stage III (moderate) (Chronic) Surgical History S/P right knee arthroscopy (Acute) Extraction of cataract Colonoscopy - MAC (12/13/16) Coronary Stent (07/12/17) EGD - MAC (12/13/16) Tonsillectomy Postsurgical percutaneous transluminal coronary angioplasty status (Chronic) Family History Father Heart disease Sister Stomach cancer Mother No problems noted. 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 Working smoke detector in home: Yes Fire extinguisher in home: Yes Carbon monox detector in home: Yes Do you feel safe in your relationship?: Yes Visit Medication and Allergies Active Medications Generic Name Dose Route Start Last Admin Trade Name Freq PRN Reason Stop Dose Admin Acetaminophen 650 mg 06/26/18 09:58 06/27/18 19:47 Tylenol PO 650 mg Q4H PRN PRN Administration Hydrocodone Bitart/Acetaminophen 1 - 2 tab 06/26/18 09:58 [place] 5/325 PO Q6H PRN PRN Pain Al Hydrox/Mg Hydrox/Simethicone 30 ml 06/26/18 09:58 Mylanta Liquid PO Q6H PRN PRN Albuterol Sulfate 1 - 2 puff 06/26/18 10:15 Ventolin Hfa IH Q4H PRN PRN Bacteriostatic Water 0 ml 06/26/18 06:00 IJ 07/23/18 23:59 DIRECTED PRN Docusate Sodium 100 mg 06/26/18 14:00 06/28/18 08:20 Colace PO 100 mg TID ISAIAS Administration Enoxaparin Sodium 40 mg 06/27/18 10:00 06/28/18 10:51 Lovenox SC 40 mg Q24H ISAIAS Administration Promethazine HCl 12.5 mg/ 50.5 mls @ 200 mls/hr 06/26/18 09:58 Sodium Chloride IVPB Q4H PRN PRN IV Miscellaneous Supplies 1 each 06/26/18 06:00 IV 07/23/18 23:59 DIRECTED ISAIAS Insulin Glargine 38 units 06/26/18 22:00 06/27/18 21:31 Lantus Solostar SC 38 units HS ISAIAS Administration Iron/Minerals/Multivitamins 1 tab 06/27/18 08:30 06/28/18 08:21 Theragran-M PO 1 tab DAILY ISAIAS Administration Lisinopril 5 mg 06/27/18 08:30 06/28/18 08:20 Prinivil PO 5 mg DAILY ISAIAS Administration Lovastatin 10 mg 06/26/18 20:00 06/27/18 19:43 Mevacor PO 10 mg DAILY@2000 ISAIAS Administration Magnesium Hydroxide 30 ml 06/26/18 09:58 Milk Of Magnesia PO Q6H PRN PRN Metoprolol Tartrate 25 mg 06/26/18 20:00 06/28/18 08:20 Lopressor PO 25 mg BID ISAIAS Administration Morphine Sulfate 2 - 4 mg 06/26/18 09:53 IVP Q1H PRN PRN Nitroglycerin 0.4 mg 06/26/18 10:03 Nitrostat SL Q5 MIN PRN X3 PRN Nortriptyline HCl 10 mg 06/26/18 22:00 06/27/18 21:32 Pamelor PO 10 mg HS ISAIAS Administration Oxybutynin Chloride 5 mg 06/27/18 08:30 06/28/18 08:21 Ditropan Xl PO 5 mg DAILY [facility] Administration Oxycodone HCl 10 mg 06/26/18 12:00 06/28/18 12:07 Oxycontin PO 06/30/18 00:01 10 mg Q12H ISAIAS Administration Pantoprazole Sodium 40 mg 06/27/18 07:30 06/28/18 08:20 Protonix PO 40 mg DAILY@0730 ISAIAS Administration Pregabalin 100 mg 06/26/18 20:00 06/28/18 08:20 Lyrica PO 100 mg BID ISAIAS Administration Ranitidine HCl 150 mg 06/26/18 20:00 06/28/18 08:20 Zantac PO 150 mg BID ISAIAS Administration Sodium Chloride 0 ml 06/26/18 06:00 06/28/18 08:20 Saline Flush 10 Ml Syringe IV 07/23/18 23:59 10 ml PRN PRN Administration Sodium Chloride 0 ml 06/26/18 06:00 Saline 10 Ml Vial IJ 07/23/18 23:59 DIRECTED PRN Allergies Penicillins Allergy (Severe, Verified 06/26/18 06:27) skin rash atorvastatin Adverse Reaction (Intermediate, Verified 06/26/18 06:27) muscle aches metformin Adverse Reaction (Intermediate, Verified 06/26/18 06:27) Diarrhea Exam Narrative Exam Narrative: Physical Exam: Gen: Patient of apparent stated age, NAD Head and face: no facial or cranial abnormalities Neck: Supple, no meningismus, no occipital tenderness CV: + S1, S2, RRR, no murmur Resp: CTA B/L Abd: soft, nontender, nondistended Ext: No edema. No clubbing or cyanosis. No bony deformity. Compression stockings on. Neuro Exam: Language: fluency, naming, repetition, and comprehension intact; Mental Status: AAOx3, current events intact, fund of knowledge intact; Speech: no dysarthria Cranial nerves: Funduscopy: not performed CN II: visual acuna intact CN III, IV, : extraocular movements intact, no nystagmus, pupils symmetric and reactive to light CN V: face sensation intact to LT and PP CN VII: no facial asymmetry noted CN VIII: hearing intact bilaterally CN IX, X: palate rises symmetrically CN XI: trapezius/SCM 5/5 bilaterally CN XII: protrudes tongue symmetrically Sensory: intact to LT, PP (unable to test distally in the legs due to compression stockings), vibration, and joint position in all extremities Motor: bulk and tone intact. Fine motor movements intact bilaterally. No pronator drift. Strength 5/5 throughout bilateral UE and LLE. RLE with ice brace around knee. 3+/5 right hip flexor. Unable to test movement at knee. Ankle dorsi- and plantar flexion 5/5. Reflexes: 2+ at the biceps, triceps, brachioradialis, patella, and achilles tendons bilaterally; toes down going bilaterally; Coordination: FTN and HTS intact bilaterally Gait: deferred. Results Last Vital Signs Temp 38.1 C H 06/28/18 11:35 Pulse 84 06/28/18 11:35 Resp 18 06/28/18 11:35 BP 145/75 H 06/28/18 11:35 Pulse Ox 94 L 06/28/18 11:45 Labs : 06/28/18 06:50 Laboratory Results - last 24 hr 06/28/18 06:50 WBC 8.84 RBC 3.32 L Hgb 9.7 L Hct 29.9 L MCV 90.1 MCH 29.2 MCHC 32.4 RDW 13.3 Plt Count 173 MPV 11.4 H
--- NOTE | 2018-06-28 13:27 | NCONE_ITS ---
Date of service: 06/28/18 Time of Service: 13:24 Assessment and Plan (1) Spell of behavior change: Current visit: Yes Status: Acute Ms. Quiroz is an 82-year-old, right-handed woman who is postop day #2 of a right total knee replacement. She had a spell of unwellness associated with right leg weakness likely due to fatigue and overuse followed by unresponsiveness and emesis without loss of awareness or consciousness. Her neurological exam was significant for only right hip flexor weakness which seems to be consistent with her postoperative status. She has no other neurological deficits. Etiology of her spell seems most likely to be secondary to acute/subacute postoperative medication-related illness. I do not think her symptoms are suggestive of TIA or seizure. She should however resume aspirin 81 mg daily. Please call with any further questions or concerns. DISCLAIMER: This note was created using [employer] voice recognition software. History of Present Illness Chief Complaint: spell Narrative: Handedness: right. HPI: Ms. Quiroz is an 82-year-old woman with a past medical history of hypertension, hyperlipidemia, type 2 diabetes, and coronary artery disease status post previous [place] with cardiac stents placed in 2001 and 2008. She stopped aspirin the day prior to surgery. She underwent a right total knee replacement on 06/26/2018. She has recovered remarkably well and was already walking yesterday (06/27/2018). This morning after working with physical therapy around 7:45 AM, she developed nausea and emesis. Approximately 15 minutes later, she was walked to the bathroom with the aid. Upon returning from the bathroom she had some retropulsion. She was able to eat breakfast and take her morning medications. At 9:15 AM, she was working with physical therapy again. She tells me that she suddenly felt like her right leg was too weak to carry on. She was helped to a seat by the physical therapist. At that point, Ms. Quiroz recalls feeling quite nauseated. Physical therapy noted that she was pale and unresponsive with eyes open for approximately 10 seconds. Ms. Quiroz does have some recollection that the therapist was trying to talk with her. She suddenly began vomiting again. She had emesis for approximately 10 minutes. This was mainly mucus. Her O2 sats were slightly low afterwards but spontaneously returned to normal. She has since felt back to normal though with reduced appetite. She has had expected hyperthermia after her operation. She has no prior history of seizures or head injuries. She does not recall that she has ever been on narcotic pain medications before. She feels her right leg is stronger than earlier. It is difficult to know what strength she should be at postoperatively as she does have waxing and waning strength expectedly. She has been on Lovenox. Consults Requesting physician: Rajiv Turner Review of Systems Review of Systems All systems reviewed & are unremarkable except as noted in HPI and below [facility] Medical History Heart murmur (Acute) History of rheumatic fever (Acute) Tendonitis of left rotator cuff (Acute) COPD (chronic obstructive pulmonary disease) Rectal bleed (Acute) Colitis (Acute) JEMIMA (acute kidney injury) (Acute) Primary osteoarthritis of right knee (Chronic) Urinary incontinence (Acute 06/05/14) Tinnitus of both ears (Acute 09/26/14) Syncope (Acute 05/15/14) Skin lesion of left ear (Acute 10/31/15) Sensorineural hearing loss, bilateral (Acute 09/13/13) Sciatica (Acute 02/19/11) Primary osteoarthritis involving multiple joints (Acute 10/30/14) Positive cardiac stress test (Acute 06/30/17) Osteopenia (Acute 02/19/11) Hyperlipidemia (Acute 02/19/11) Gastroesophageal reflux disease (Acute 02/19/11) Gastritis, chronic (Acute 12/13/16) Fibromyalgia (Acute 12/18/14) Essential hypertension (Chronic 07/27/12) Edema (Acute 09/05/15) Diverticulitis of colon (Acute 02/19/11) Diabetic neuropathy (Chronic 01/24/14) Diabetes mellitus with neuropathy (Chronic) Atherosclerosis of [place] coronary artery of [place] heart with angina pectoris (Acute) Angina at rest (Acute 02/19/11) CAD (coronary artery disease) (Chronic) Old myocardial infarction (Chronic) GERD (gastroesophageal reflux disease) (Chronic) Type 2 diabetes mellitus (Chronic) Diabetic neuropathy (Chronic) H/O diverticulitis of colon (Chronic) Hypertension (Chronic) Hearing loss of both ears (Chronic) Tinnitus (Chronic) Osteoporosis (Chronic) Sciatica (Chronic) Chest pain (Acute 04/28/14) Syncope (Acute 04/28/14) Chronic kidney disease, stage III (moderate) (Chronic) Surgical History S/P right knee arthroscopy (Acute) Extraction of cataract Colonoscopy - MAC (12/13/16) Coronary Stent (07/12/17) EGD - MAC (12/13/16) Tonsillectomy Postsurgical percutaneous transluminal coronary angioplasty status (Chronic) Family History Father Heart disease Sister Stomach cancer Mother No problems noted. 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 Working smoke detector in home: Yes Fire extinguisher in home: Yes Carbon monox detector in home: Yes Do you feel safe in your relationship?: Yes Visit Medication and Allergies Active Medications Generic Name Dose Route Start Last Admin Trade Name Freq PRN Reason Stop Dose Admin Acetaminophen 650 mg 06/26/18 09:58 06/27/18 19:47 Tylenol PO 650 mg Q4H PRN PRN Administration Hydrocodone Bitart/Acetaminophen 1 - 2 tab 06/26/18 09:58 [place] 5/325 PO Q6H PRN PRN Pain Al Hydrox/Mg Hydrox/Simethicone 30 ml 06/26/18 09:58 Mylanta Liquid PO Q6H PRN PRN Albuterol Sulfate 1 - 2 puff 06/26/18 10:15 Ventolin Hfa IH Q4H PRN PRN Bacteriostatic Water 0 ml 06/26/18 06:00 IJ 07/23/18 23:59 DIRECTED PRN Docusate Sodium 100 mg 06/26/18 14:00 06/28/18 08:20 Colace PO 100 mg TID ISAIAS Administration Enoxaparin Sodium 40 mg 06/27/18 10:00 06/28/18 10:51 Lovenox SC 40 mg Q24H ISAIAS Administration Promethazine HCl 12.5 mg/ 50.5 mls @ 200 mls/hr 06/26/18 09:58 Sodium Chloride IVPB Q4H PRN PRN IV Miscellaneous Supplies 1 each 06/26/18 06:00 IV 07/23/18 23:59 DIRECTED ISAIAS Insulin Glargine 38 units 06/26/18 22:00 06/27/18 21:31 Lantus Solostar SC 38 units HS ISAIAS Administration Iron/Minerals/Multivitamins 1 tab 06/27/18 08:30 06/28/18 08:21 Theragran-M PO 1 tab DAILY ISAIAS Administration Lisinopril 5 mg 06/27/18 08:30 06/28/18 08:20 Prinivil PO 5 mg DAILY ISAIAS Administration Lovastatin 10 mg 06/26/18 20:00 06/27/18 19:43 Mevacor PO 10 mg DAILY@2000 ISAIAS Administration Magnesium Hydroxide 30 ml 06/26/18 09:58 Milk Of Magnesia PO Q6H PRN PRN Metoprolol Tartrate 25 mg 06/26/18 20:00 06/28/18 08:20 Lopressor PO 25 mg BID ISAIAS Administration Morphine Sulfate 2 - 4 mg 06/26/18 09:53 IVP Q1H PRN PRN Nitroglycerin 0.4 mg 06/26/18 10:03 Nitrostat SL Q5 MIN PRN X3 PRN Nortriptyline HCl 10 mg 06/26/18 22:00 06/27/18 21:32 Pamelor PO 10 mg HS ISAIAS Administration Oxybutynin Chloride 5 mg 06/27/18 08:30 06/28/18 08:21 Ditropan Xl PO 5 mg DAILY [facility] Administration Oxycodone HCl 10 mg 06/26/18 12:00 06/28/18 12:07 Oxycontin PO 06/30/18 00:01 10 mg Q12H ISAIAS Administration Pantoprazole Sodium 40 mg 06/27/18 07:30 06/28/18 08:20 Protonix PO 40 mg DAILY@0730 ISAIAS Administration Pregabalin 100 mg 06/26/18 20:00 06/28/18 08:20 Lyrica PO 100 mg BID ISAIAS Administration Ranitidine HCl 150 mg 06/26/18 20:00 06/28/18 08:20 Zantac PO 150 mg BID ISAIAS Administration Sodium Chloride 0 ml 06/26/18 06:00 06/28/18 08:20 Saline Flush 10 Ml Syringe IV 07/23/18 23:59 10 ml PRN PRN Administration Sodium Chloride 0 ml 06/26/18 06:00 Saline 10 Ml Vial IJ 07/23/18 23:59 DIRECTED PRN Allergies Penicillins Allergy (Severe, Verified 06/26/18 06:27) skin rash atorvastatin Adverse Reaction (Intermediate, Verified 06/26/18 06:27) muscle aches metformin Adverse Reaction (Intermediate, Verified 06/26/18 06:27) Diarrhea Exam Narrative Exam Narrative: Physical Exam: Gen: Patient of apparent stated age, NAD Head and face: no facial or cranial abnormalities Neck: Supple, no meningismus, no occipital tenderness CV: + S1, S2, RRR, no murmur Resp: CTA B/L Abd: soft, nontender, nondistended Ext: No edema. No clubbing or cyanosis. No bony deformity. Compression stockings on. Neuro Exam: Language: fluency, naming, repetition, and comprehension intact; Mental Status: AAOx3, current events intact, fund of knowledge intact; Speech: no dysarthria Cranial nerves: Funduscopy: not performed CN II: visual acuna intact CN III, IV, : extraocular movements intact, no nystagmus, pupils symmetric and reactive to light CN V: face sensation intact to LT and PP CN VII: no facial asymmetry noted CN VIII: hearing intact bilaterally CN IX, X: palate rises symmetrically CN XI: trapezius/SCM 5/5 bilaterally CN XII: protrudes tongue symmetrically Sensory: intact to LT, PP (unable to test distally in the legs due to compression stockings), vibration, and joint position in all extremities Motor: bulk and tone intact. Fine motor movements intact bilaterally. No prona tor drift. Strength 5/5 throughout bilateral UE and LLE. RLE with ice brace around knee. 3+/5 right hip flexor. Unable to test movement at knee. Ankle dorsi- and plantar flexion 5/5. Reflexes: 2+ at the biceps, triceps, brachioradialis, patella, and achilles tendons bilaterally; toes down going bilaterally; Coordination: FTN and HTS intact bilaterally Gait: deferred. Results Last Vital Signs Temp 38.1 C H 06/28/18 11:35 Pulse 84 06/28/18 11:35 Resp 18 06/28/18 11:35 BP 145/75 H 06/28/18 11:35 Pulse Ox 94 L 06/28/18 11:45 Labs : 06/28/18 06:50 Laboratory Results - last 24 hr 06/28/18 06:50 WBC 8.84 RBC 3.32 L Hgb 9.7 L Hct 29.9 L MCV 90.1 MCH 29.2 MCHC 32.4 RDW 13.3 Plt Count 173 MPV 11.4 H
--- NOTE | 2018-06-28 14:31 | PT.INTREAT ---
Date of service: 06/28/18 Time of Service: 07:50 PT Notes Inpatient Physical Therapy Treatment Note [facility] Date: 06/28/2018 PRECAUTIONS: Fall, WBAT R SUBJECTIVE: Sonia reports that she continues to not have much pain in right knee. She is agreeable to participating in PT. OBJECTIVE: Following supine ther ex and bed mobility training, patient began vomiting while seated at EOB. Nursing present. Following gait training x75' patient states my leg feels weak. Patient appeared to have difficulty advancing right leg, however was able to get to a seated position on plinth in PT room, where she started vomiting again, approximately 1 minute after sitting. Nursing present, vital signs taken and recorded in nursing notes. Patient was then taken back to her room via wheelchair and transferred into bed. PAIN: No complaints of pain BED MOBILITY/TRANSFERS Supine-sit: I with HOB flat to both left and right sides of bed Sit-supine: I with HOB flat Sit-stand: SBA Stand-sit: SBA GAIT Assistive Device: FWW Weight bearing: WBAT R Assist: SBA Distance: 75' Deviation: Step through pattern utilized, complaints of nausea VITALS: Please see nursing notes for exact vital signs THEREX: Patient completed a lower extremity strengthening and stabilization program, in a supine position, as per flow sheet. Patient was able to perform active SLR x10. ASSESSMENT: Patient tolerated session with nausea and vomiting with activity. Patient was able to demonstrate independence with supine<>sit transfers at this time. Patient would benefit from continued gait training as well as strengthening for improved mobility and improved activity tolerance. PLAN: Continue with PTs POC TREATMENT CODE/TIME: 40 minutes; [id number] x2, [id number]
--- NOTE | 2018-06-28 14:40 | PTTR_ITS ---
Date of service: 06/28/18 Time of Service: 07:50 PT Notes Inpatient Physical Therapy Treatment Note [facility] Date: 06/28/2018 PRECAUTIONS: Fall, WBAT R SUBJECTIVE: Sonia reports that she continues to not have much pain in right k nee. She is agreeable to participating in PT. OBJECTIVE: Following supine ther ex and bed mobility training, patient began vomiting while seated at EOB. Nursing present. Following gait training x75' patient states my leg feels weak. Patient appeared to have difficulty advancing right leg, however was able to get to a seated position on plinth in PT room, where she started vomiting again, approximately 1 minute after sitting. Nursing present, vital signs taken and recorded in nursing notes. Patient was then taken back to her room via wheelchair and transferred into bed. PAIN: No complaints of pain BED MOBILITY/TRANSFERS Supine-sit: I with HOB flat to both left and right sides of bed Sit-supine: I with HOB flat Sit-stand: SBA Stand-sit: SBA GAIT Assistive Device: FWW Weight bearing: WBAT R Assist: SBA Distance: 75' Deviation: Step through pattern utilized, complaints of nausea VITALS: Please see nursing notes for exact vital signs THEREX: Patient completed a lower extremity strengthening and stabilization program, in a supine position, as per flow sheet. Patient was able to perform active SLR x10. ASSESSMENT: Patient tolerated session with nausea and vomiting with activity. Patient was able to demonstrate independence with supine<>sit transfers at this time. Patient would benefit from continued gait training as well as strengthening for improved mobility and improved activity tolerance. PLAN: Continue with PTs POC TREATMENT CODE/TIME: 40 minutes; 14549 x2, [id number]
--- NOTE | 2018-06-28 14:40 | PT.INNT ---
Date of service: 06/28/18 Time of Service: 14:40 PT Notes 06/28/2018 Patient refused afternoon PT session, stating she was exhausted and would like to rest. Will attempt to resume PT services tomorrow morning.
--- NOTE | 2018-06-28 14:47 | PDOC.CMPRO ---
- If Service Date Differs Date of service: 06/28/18 Time of Service: 14:59 Care Management Progress Note S/O: Sonia is lying in bed this morning, her friend Jessenia is in the room with her. Both are pleasant and receptive to discussion. Sonia had an event today in which she vomited during physical therapy. Neurology met with Sonia and reports that this event does not appear to be a TIA or seizure. Sonia will continue to receive PT, will return home once ready. A: 82 y/o female admitted 06/26/18 for (R) Total knee P: Sonia will return home with outpatient PT through [facility] when medically cleared. She will F/U with Dr. Turner and plan of care as prescribed.
--- NOTE | 2018-06-28 17:25 | PGE_ITS ---
Date of Service Date of service: 06/28/18 Time of Service: 17:22 Assessment and Plan (1) Status post total knee replacement, right: Current visit: Yes Status: Acute Assessment: I agree with Dr. Crews that her behavior change following vomiting was probably due to medication. Nevertheless I would like to keep her overnight for observation rather than discharge her tonight. She has no problems overnight and I will discharge her tomorrow morning after her morning physical therapy session. Plan: DC Lovenox start her back on aspirin 81 mg starting tomorrow. DC home tomorrow if no problems arise overnight. Subjective Interval history since last seen: Sonia is feeling well. She has had no more n ausea or vomiting since this morning. She feels alert and oriented. She is asking she go home tonight. Exam Narrative Exam Narrative: Please see consultation by Dr. Crews from earlier today. Dr. Crews did not feel that patient had any neurological problems. She felt that the patient's vomiting and subsequent inattention was probably due to medication. I examined Sonia around noontime and again at 5 PM. She is alert oriented x3. She is now eating supper and having no problems. The nurses put on O2 because she had initially some O2 sats that were low but she is not short of breath. She has good sensation and circulation to her right foot good active motion of her toes and ankle on the right. Hemoglobin is 9.7 g this morning. Objective Objective Clinical Data: Abnormal lab results 06/28/18 Range/Units 06:50 RBC 3.32 L (4.00-5.20) m/cumm Hgb 9.7 L (12.0-15.5) g/dL Hct 29.9 L (36.0-46.0) % MPV 11.4 H (8.0-11.0) fL Vital Signs Temperature 37 C 06/28/18 15:54 Temperature Source Tympanic 06/28/18 15:54 Pulse 90 06/28/18 15:54 Pulse Rhythm Regular 06/28/18 11:32 Respiratory Rate 18 06/28/18 15:54 Respiratory Effort Non-Labored 06/28/18 11:32 Respiratory Depth Normal 06/28/18 11:32 Respiratory Pattern Normal 06/28/18 11:32 Blood Pressure 153/73 H 06/28/18 15:54 Pulse Oximetry 97 06/28/18 15:54 Respiratory End-tidal CO2 29 06/26/18 10:25 Oxygen Delivery Method Nasal Cannula 06/28/18 15:54 Oxygen Flow Rate 2 06/28/18 15:54 Pain Level 0 06/28/18 13:07 Comment 06/28/18 10:33 Intake & Output 06/27/18 06/28/18 06/28/18 23:59 11:59 23:59 Intake Total 1420 / 3350 240 / 490 250 / 490 Output Total 600 / 1100 550 / 550 Balance 820 / 2250 -310 / -60 250 / -60 Intake: IV 1120 / 2170 10 10 Oral 300 / 1180 240 / 480 240 / 480 Output: Urine 600 / 1100 200 / 200 Emesis 350 / 350 Other: Urine Color Yellow Yellow Urine Appearance Clear Clear Urine Odor Normal Comment patient voided large amount of urine in brief. Stool Size Smear Stool Characteristics Brown Emesis Description Undigested Food Clear/Water Voiding Methods Toilet Toilet Diaper Incontinent Laboratory Results WBC 8.84 k/cumm (4.4-10.8) 06/28/18 06:50 RBC 3.32 m/cumm (4.00-5.20) L 06/28/18 06:50 Hgb 9.7 g/dL (12.0-15.5) L 06/28/18 06:50 Hct 29.9 % (36.0-46.0) L 06/28/18 06:50 MCV 90.1 fL (80-95) 06/28/18 06:50 MCH 29.2 pg (27.0-33.0) 06/28/18 06:50 MCHC 32.4 g/dL (32.0-36.0) 06/28/18 06:50 RDW 13.3 % (11.7-14.6) 06/28/18 06:50 Plt Count 173 x1000/uL (130-400) 06/28/18 06:50 MPV 11.4 fL (8.0-11.0) H 06/28/18 06:50
[2018-06-28] MEDS: Lovastatin 20 MG TAB 10 MG PO (20:15)
[2018-06-28] MEDS: Insulin Glargine 300 UNITS/3 ML PEN 38 UNITS SC (21:27)
[2018-06-28] MEDS: Nortriptyline 10 MG CAP PO (21:28)
[2018-06-29 00:05] VITALS: TEMP 38
[2018-06-29] MEDS: Acetaminophen 325 MG TAB 650 MG PO ×2 (00:05→08:43)
[2018-06-29] MEDS: oxyCODONE-CR 10 MG TABCR PO ×2 (00:05→12:31)
[2018-06-29 03:55] VITALS: BP 104/64; PULSE 70; RESP 16; TEMP 36.8; O2SAT 98
[2018-06-29 07:45] VITALS: BP 106/66; PULSE 69; RESP 20; TEMP 36.4; O2SAT 98
[2018-06-29] MEDS: Lisinopril 5 MG TAB PO (07:45)
[2018-06-29] MEDS: Docusate Sodium 100 MG CAP PO (07:47)
[2018-06-29] MEDS: Oxybutynin-CR 5 MG TABCR PO (07:47)
[2018-06-29] MEDS: Multivitamin w/Minerals TAB 1 TAB PO (07:47)
[2018-06-29] MEDS: Pregabalin 100 MG CAP PO (07:47)
[2018-06-29] MEDS: Metoprolol 25 MG TAB PO (07:48)
[2018-06-29] MEDS: Aspirin E.C. 81 MG TABEC PO (07:48)
[2018-06-29] MEDS: Pantoprazole 40 MG TABCR PO (07:48)
--- NOTE | 2018-06-29 08:25 | W.PM.DS.N ---
Date of service: 06/29/18 Time of Service: 08:26 DS: Diagnosis Discharge Diagnosis (1) Spell of behavior change: Status: Acute (2) Status post total knee replacement, right: Status: Acute Discharge Plan Disposition Patient Disposition: HOME Condition: Good Discharge Details Reason For Visit: POST-OP R TOTAL KNEE Admit Date/Time: 06/26/18 05:58 Admit Provider: Rajiv Turner Attending Provider: Rajiv Turner Primary Care Provider: Savanna Guillen Hospital Course Hospital Course: Patient was taken to the operating room on the day of admission on 06/26/2018 where she underwent a right total knee replacement without complication. Postoperatively she was mobilized per protocol with PT. Hemoglobin hemoglobin stabilized at 9.7 g at 48 hours postop. Her postoperative course was complicated by a behavior change on 06/28/2018 after an episode of vomiting. Dr. St was consulted and she felt that the behavior change was due to medication reaction and not due to a neurological condition. By 06/29/2018, she was feeling well with no further changes in behavior. She was anxious to go home. She had a complete all acute care goals. She was independent with transfers and ambulation and taking only occasional oral pain med. Home Meds and New Rx's Prescriptions: New hydrocodone-acetaminophen 5-325 mg tablet 1 tab PO Q6H PRN (Reason: pain) Qty: 20 RF: 0 celecoxib [Celebrex] 200 mg capsule 200 mg PO DAILY Qty: 20 RF: 0 No Action lovastatin 10 mg tablet 10 mg PO DAILY Qty: 90 RF: 3 oxybutynin chloride 5 mg tablet extended release 24hr 5 mg PO DAILY Qty: 90 RF: 3 aspirin 81 mg tablet,delayed release (DR/EC) 81 mg PO DAILY RF: 0 Lantus Solostar U-100 Insulin 100 unit/mL (3 mL) insulin pen 38 unit Sub-Q HS RF: 0 lancets [OneTouch UltraSoft Lancets] misc 1 ea Miscellaneous DAILY Qty: 100 RF: 3 lisinopril 5 mg tablet 5 mg PO DAILY 3 Days Qty: 90 RF: 3 metoprolol tartrate 25 mg tablet 25 mg PO BID Qty: 180 RF: 3 pregabalin 100 mg capsule 100 mg PO BID Qty: 60 RF: 3 pantoprazole 40 mg tablet,delayed release (DR/EC) 40 mg PO DAILY Qty: 90 RF: 3 blood sugar diagnostic strip .ROUTE .MEDSUPPLY Qty: 100 RF: 3 blood-glucose meter [OneTouch Ultra2] 1 EACH kit 1 ea Miscellaneous DAILY Qty: 1 RF: 0 nitroglycerin [Nitrostat] 0.4 MG tablet, sublingual 0.4 mg Sublingual Q5 MIN PRN X3 PRNQty: 1 RF: 3 Varicella-Zoster Ge/As01b/Pf [Shingrix Vial Kit] 50 MCG INJ 50 mcg IM ONCE Qty: 1 RF: 1 nortriptyline 10 mg capsule 10 mg PO HS Qty: 90 RF: 3 albuterol sulfate [ProAir HFA] 90 mcg/actuation HFA aerosol inhaler 1 - 2 puff Inhalation Q4H PRN Qty: 1 RF: 12 pen needle, diabetic [BD Ultra-Fine Marilyn Pen Needle] 32 gauge x 5/32 needle 1 unit Miscellaneous HS Qty: 90 RF: 3 ranitidine HCl 150 mg tablet 150 mg PO BID Qty: 180 RF: 1 Discharge Instructions Additional Instructions: Elevate right leg when sitting. Walk every day as much as discomfort allows. Apply Cryo/Cuff the right knee 4 times a day for an hour each time. May shower and get [place] wet. Cover [place] with light gauze so they do not rub on clothes. Wear long-leg stocking on the right during the daytime only for next 2 weeks. Outpatient physical therapy for right total knee rehab starting 07/03/2018. Discontinue the knee immobilizer at home. Do the exercises given to you by physical therapy at home until you can go to outpatient physical therapy. Do the exercises every day. Follow-up with Dr. Turner in 2 weeks. Take Tylenol for mild pain. Take Celebrex that was prescribed for inflammation and swelling. Take hydrocodone if needed for breakthrough pain. Referrals: Rajiv Turner MD [ [facility] STAFF PHYSICIAN] - (f/u in 2 weeks) Activity:: Activity as Tolerated Equipment/Supplies:: Walker Diet:: As Tolerated Discharge Orders Discharge Orders: Discharge Order (Routine); Ordered 06/29/18 Ordered By: Rajiv Turner DS: Data Vitals/I&O Vitals and I&O: Vital Signs Temperature 36.4 C L 05/16/19 07:45 Temperature Source Tympanic 06/29/18 07:45 Pulse 69 06/29/18 07:45 Pulse Rhythm Regular 06/29/18 08:03 Respiratory Rate 20 06/29/18 07:45 Respiratory Effort Non-Labored 06/29/18 08:03 Respiratory Depth Normal 06/29/18 08:03 Respiratory Pattern Normal 06/29/18 08:03 Blood Pressure 106/66 06/29/18 07:45 Pulse Oximetry 98 06/29/18 07:45 Respiratory End-tidal CO2 29 06/26/18 10:25 Oxygen Delivery Method Nasal Cannula 06/29/18 07:45 Oxygen Flow Rate 2 06/29/18 07:45 Pain Level 0 06/29/18 07:45 Comment 06/29/18 07:45 Intake & Output 06/28/18 06/28/18 06/29/18 11:59 23:59 11:59 Intake Total 240 / 730 490 / 730 350 / 350 Output Total 550 / 550 525 / 525 Balance -310 / 180 490 / 180 -175 / -175 Intake: IV Oral 240 / 720 480 / 720 350 / 350 Output: Urine 200 / 200 525 / 525 Emesis 350 / 350 Other: Urine Color Yellow Straw Yellow Urine Appearance Clear Clear Clear Urine Odor Normal Normal Comment patient was incontinent of large amount of urine. this is the first time patient has agreed to toileting after being asked a few times prior to now throughout my shift. Stool Size Smear Stool Characteristics Brown Emesis Description Undigested Food None Clear/Water Voiding Methods Toilet Diaper Toilet Incontinent [facility] Medical History Heart murmur (Acute) History of rheumatic fever (Acute) Tendonitis of left rotator cuff (Acute) COPD (chronic obstructive pulmonary disease) Rectal bleed (Acute) Colitis (Acute) JEMIMA (acute kidney injury) (Acute) Primary osteoarthritis of right knee (Chronic) Urinary incontinence (Acute 06/05/14) Tinnitus of both ears (Acute 09/26/14) Syncope (Acute 05/15/14) Skin lesion of left ear (Acute 10/31/15) Sensorineural hearing loss, bilateral (Acute 09/13/13) Sciatica (Acute 02/19/11) Primary osteoarthritis involving multiple joints (Acute 10/30/14) Positive cardiac stress test (Acute 06/30/17) Osteopenia (Acute 02/19/11) Hyperlipidemia (Acute 02/19/11) Gastroesophageal reflux disease (Acute 02/19/11) Gastritis, chronic (Acute 12/13/16) Fibromyalgia (Acute 12/18/14) Essential hypertension (Chronic 07/27/12) Edema (Acute 09/05/15) Diverticulitis of colon (Acute 02/19/11) Diabetic neuropathy (Chronic 01/24/14) Diabetes mellitus with neuropathy (Chronic) Atherosclerosis of [place] coronary artery of [place] heart with angina pectoris (Acute) Angina at rest (Acute 02/19/11) CAD (coronary artery disease) (Chronic) Old myocardial infarction (Chronic) GERD (gastroesophageal reflux disease) (Chronic) Type 2 diabetes mellitus (Chronic) Diabetic neuropathy (Chronic) H/O diverticulitis of colon (Chronic) Hypertension (Chronic) Hearing loss of both ears (Chronic) Tinnitus (Chronic) Osteoporosis (Chronic) Sciatica (Chronic) Chest pain (Acute 04/28/14) Syncope (Acute 04/28/14) Chronic kidney disease, stage III (moderate) (Chronic) Surgical History S/P right knee arthroscopy (Acute) Extraction of cataract Colonoscopy - MAC (12/13/16) Coronary Stent (07/12/17) EGD - MAC (12/13/16) Tonsillectomy Postsurgical percutaneous transluminal coronary angioplasty status (Chronic) Family History Father Heart disease Sister Stomach cancer Mother No problems noted. 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
--- NOTE | 2018-06-29 08:30 | DSE_ITS ---
Date of service: 06/29/18 Time of Service: 08:26 DS: Diagnosis Discharge Diagnosis (1) Spell of behavior change: Status: Acute (2) Status post total knee replacement, right: Status: Acute Discharge Plan Disposition Patient Disposition: HOME Condition: Good Discharge Details Reason For Visit: POST-OP R TOTAL KNEE Admit Date/Time: 06/26/18 05:58 Admit Provider: Rajiv Turner Attending Provider: Rajiv Turner Primary Care Provider: Savanna Guillen Hospital Course Hospital Course: Patient was taken to the operating room on the day of admission on 06/26/2018 where she underwent a right total knee replacement without complication. Postoperatively she was mobilized per protocol with PT. Hemoglobin hemoglobin stabilized at 9.7 g at 48 hours postop. Her postoperative course was complicated by a behavior change on 06/28/2018 after an episode of vomiting. Dr. St was consulted and she felt that the behavior change was due to medication reaction and not due to a neurological condition. By 06/29/2018, she was feeling well with no further changes in behavior. She was anxious to go home. She had a complete all acute care goals. She was independent with transfers and ambulation and taking only occasional oral pain med. Home Meds and New Rx's Prescriptions: New hydrocodone-acetaminophen 5-325 mg tablet 1 tab PO Q6H PRN (Reason: pain) Qty: 20 RF: 0 celecoxib [Celebrex] 200 mg capsule 200 mg PO DAILY Qty: 20 RF: 0 No Action lovastatin 10 mg tablet 10 mg PO DAILY Qty: 90 RF: 3 oxybutynin chloride 5 mg tablet extended release 24hr 5 mg PO DAILY Qty: 90 RF: 3 aspirin 81 mg tablet,delayed release (DR/EC) 81 mg PO DAILY RF: 0 Lantus Solostar U-100 Insulin 100 unit/mL (3 mL) insulin pen 38 unit Sub-Q HS RF: 0 lancets [OneTouch UltraSoft Lancets] misc 1 ea Miscellaneous DAILY Qty: 100 RF: 3 lisinopril 5 mg tablet 5 mg PO DAILY 3 Days Qty: 90 RF: 3 metoprolol tartrate 25 mg tablet 25 mg PO BID Qty: 180 RF: 3 pregabalin 100 mg capsule 100 mg PO BID Qty: 60 RF: 3 pantoprazole 40 mg tablet,delayed release (DR/EC) 40 mg PO DAILY Qty: 90 RF: 3 blood sugar diagnostic strip .ROUTE .MEDSUPPLY Qty: 100 RF: 3 blood-glucose meter [OneTouch Ultra2] 1 EACH kit 1 ea Miscellaneous DAILY Qty: 1 RF: 0 nitroglycerin [Nitrostat] 0.4 MG tablet, sublingual 0.4 mg Sublingual Q5 MIN PRN X3 PRNQty: 1 RF: 3 Varicella-Zoster Ge/As01b/Pf [Shingrix Vial Kit] 50 MCG INJ 50 mcg IM ONCE Qty: 1 RF: 1 nortriptyline 10 mg capsule 10 mg PO HS Qty: 90 RF: 3 albuterol sulfate [ProAir HFA] 90 mcg/actuation HFA aerosol inhaler 1 - 2 puff Inhalation Q4H PRN Qty: 1 RF: 12 pen needle, diabetic [BD Ultra-Fine Marilyn Pen Needle] 32 gauge x 5/32 needle 1 unit Miscellaneous HS Qty: 90 RF: 3 ranitidine HCl 150 mg tablet 150 mg PO BID Qty: 180 RF: 1 Discharge Instructions Additional Instructions: Elevate right leg when sitting. Walk every day as much as discomfort allows. Apply Cryo/Cuff the right knee 4 times a day for an hour each time. May shower and get [place] wet. Cover [place] with light gauze so they do not rub on clothes. Wear long-leg stocking on the right during the daytime only for next 2 weeks. Outpatient physical therapy for right total knee rehab starting 07/03/2018. Discontinue the knee immobilizer at home. Do the exercises given to you by physical therapy at home until you can go to outpatient physical therapy. Do the exercises every day. Follow-up with Dr. Turner in 2 weeks. Take Tylenol for mild pain. Take Celebrex that was prescribed for inflammation and swelling. Take hydrocodone if needed for breakthrough pain. Referrals: Rajiv Turner MD [ [facility] STAFF PHYSICIAN] - (f/u in 2 weeks) Activity:: Activity as Tolerated Equipment/Supplies:: Walker Diet:: As Tolerated Discharge Orders Discharge Orders: Discharge Order (Routine); Ordered 06/29/18 Ordered By: Rajiv Turner DS: Data Vitals/I&O Vitals and I&O: Vital Signs Temperature 36.4 C L 05/16/19 07:45 Temperature Source Tympanic 06/29/18 07:45 Pulse 69 06/29/18 07:45 Pulse Rhythm Regular 06/29/18 08:03 Respiratory Rate 20 06/29/18 07:45 Respiratory Effort Non-Labored 06/29/18 08:03 Respiratory Depth Normal 06/29/18 08:03 Respiratory Pattern Normal 06/29/18 08:03 Blood Pressure 106/66 06/29/18 07:45 Pulse Oximetry 98 06/29/18 07:45 Respiratory End-tidal CO2 29 06/26/18 10:25 Oxygen Delivery Method Nasal Cannula 06/29/18 07:45 Oxygen Flow Rate 2 06/29/18 07:45 Pain Level 0 06/29/18 07:45 Comment 06/29/18 07:45 Intake & Output 06/28/18 06/28/18 06/29/18 11:59 23:59 11:59 Intake Total 240 / 730 490 / 730 350 / 350 Output Total 550 / 550 525 / 525 Balance -310 / 180 490 / 180 -175 / -175 Intake: IV Oral 240 / 720 480 / 720 350 / 350 Output: Urine 200 / 200 525 / 525 Emesis 350 / 350 Other: Urine Color Yellow Straw Yellow Urine Appearance Clear Clear Clear Urine Odor Normal Normal Comment patient was incontinent of large amount of urine. this is the first time patient has agreed to toileting after being asked a few times prior to now throughout my shift. Stool Size Smear Stool Characteristics Brown Emesis Description Undigested Food None Clear/Water Voiding Methods Toilet Diaper Toilet Incontinent [facility] Medical History Heart murmur (Acute) History of rheumatic fever (Acute) Tendonitis of left rotator cuff (Acute) COPD (chronic obstructive pulmonary disease) Rectal bleed (Acute) Colitis (Acute) JEMIMA (acute kidney injury) (Acute) Primary osteoarthritis of right knee (Chronic) Urinary incontinence (Acute 06/05/14) Tinnitus of both ears (Acute 09/26/14) Syncope (Acute 05/15/14) Skin lesion of left ear (Acute 10/31/15) Sensorineural hearing loss, bilateral (Acute 09/13/13) Sciatica (Acute 02/19/11) Primary osteoarthritis involving multiple joints (Acute 10/30/14) Positive cardiac stress test (Acute 06/30/17) Osteopenia (Acute 02/19/11) Hyperlipidemia (Acute 02/19/11) Gastroesophageal reflux disease (Acute 02/19/11) Gastritis, chronic (Acute 12/13/16) Fibromyalgia (Acute 12/18/14) Essential hypertension (Chronic 07/27/12) Edema (Acute 09/05/15) Diverticulitis of colon (Acute 02/19/11) Diabetic neuropathy (Chronic 01/24/14) Diabetes mellitus with neuropathy (Chronic) Atherosclerosis of [place] coronary artery of [place] heart with angina pectoris (Acute) Angina at rest (Acute 02/19/11) CAD (coronary artery disease) (Chronic) Old myocardial infarction (Chronic) GERD (gastroesophageal reflux disease) (Chronic) Type 2 diabetes mellitus (Chronic) Diabetic neuropathy (Chronic) H/O diverticulitis of colon (Chronic) Hypertension (Chronic) Hearing loss of both ears (Chronic) Tinnitus (Chronic) Osteoporosis (Chronic) Sciatica (Chronic) Chest pain (Acute 04/28/14) Syncope (Acute 04/28/14) Chronic kidney disease, stage III (moderate) (Chronic) Surgical History S/P right knee arthroscopy (Acute) Extraction of cataract Colonoscopy - MAC (12/13/16) Coronary Stent (07/12/17) EGD - MAC (12/13/16) Tonsillectomy Postsurgical percutaneous transluminal coronary angioplasty status (Chronic) Family History Father Heart disease Sister Stomach cancer Mother No problems noted. Social History Smoking/Tobacco Use Status: Former Tobacco Use Alcohol Intake: current Alcohol Intake frequency: holidays/special occasions only Drug use: Never Household members: other What type of physical activity do you participate in: none Seatbelt use: always Drive intox or ride w/intox team cdl driver: No Working smoke detector in home: Yes Fire extinguisher in home: Yes Carbon monox detector in home: Yes Do you feel safe in your relationship?: Yes
[2018-06-29] MEDS: Polyethylene Glycol 3350 17 GM PACKET PO (08:43)
[2018-06-29] MEDS: Milk of Magnesia 30 ML CUP PO (08:44)
[2018-06-29 08:52] VITALS: O2SAT 98
[2018-06-29 09:30] VITALS: O2SAT 90
[2018-06-29 09:38] VITALS: O2SAT 86
[2018-06-29] MEDS: Bisacodyl 10 MG SUPP PR (09:38)
--- NOTE | 2018-06-29 12:01 | PT.INTREAT ---
Date of service: 06/29/18 Time of Service: 12:02 PT Notes Inpatient Physical Therapy Treatment Note [facility] Date: 06/29/18 PRECAUTIONS: WBAT on R SUBJECTIVE: Sonia states that she is feeling much better today. She feels that she is ready to be discharged home. OBJECTIVE: PAIN: No c/o pain BED MOBILITY/TRANSFERS Supine-sit: I Sit-stand: SBA Stand-sit: SBA GAIT Assistive Device: FWW Weight bearing: WBAT on R Assist: SBA Distance: 75' x2 Deviation: Step-through pattern THEREX: Patient completed ankle pumps and active SLR x10. STAIRS: Up/down 3x4 and 2x6 using 1 rail/SPC and a step-to pattern with supervision. ASSESSMENT: Patient tolerated session well without complaint. She would benefit from continued strengthening for improved activity tolerance and mobility. PLAN: As per primary PT TREATMENT CODE/TIME: 15 minutes; [id number]
--- NOTE | 2018-06-29 12:04 | PTTR_ITS ---
Date of service: 06/29/18 Time of Service: 12:02 PT Notes Inpatient Physical Therapy Treatment Note [facility] Date: 06/29/18 PRECAUTIONS: WBAT on R SUBJECTIVE: Sonia states that she is feeling much better today. She feels that she is ready to be discharged home. OBJECTIVE: PAIN: No c/o pain BED MOBILITY/TRANSFERS Supine-sit: I Sit-stand: SBA Stand-sit: SBA GAIT Assistive Device: FWW Weight bearing: WBAT on R Assist: SBA Distance: 75' x2 Deviation: Step-through pattern THEREX: Patient completed ankle pumps and active SLR x10. STAIRS: Up/down 3x4 and 2x6 using 1 rail/SPC and a step-to pattern with supervision. ASSESSMENT: Patient tolerated session well without complaint. She would bene fit from continued strengthening for improved activity tolerance and mobility. PLAN: As per primary PT TREATMENT CODE/TIME: 15 minutes; [id number]
--- NOTE | 2018-06-29 13:38 | PDOC.CMDIS ---
- If Service Date Differs Date of service: 06/29/18 Time of Service: 13:38 LACE Index Scoring Tool - Questions: Length of Stay (in days): 3 Acuity (Admit via E.D.?): No Comorbidities: Diabetes w/o Complication, Chronic Pulmonary Disease E.D. Visits: 1 - Answers: Total Score: 7 Risk of Readmission: Low Risk Care Management Discharge Reason for Hospitalization: Post-Op (R) total knee Discharge Plan: Sonia will return home today with no services. She will F/U with Dr. Turner and plan of care as prescribed. Sonia completed her advance directive today which processed and provided Sonia with a packet with the original and copies for her agents. Sonia's friend Jessenia will obtain a FWW and a raised toilet seat. Jessenia to transport. Patient/Family Education Needs: Review DC instructions, any limitations, and discuss Ask Me Three
== END 2018-06-29 12:47 | disposition home or self-care (01) | DRG 470 ==
LOC: PDS 06:55 → MS 10:31
PROVIDERS: Admitting Provider Orthopaedic Surgery; PCP Nurse Practitioner; Visit Provider Orthopaedic Surgery
PROC: 0SRC0J9 Replacement of Right Knee Joint with Synthetic Substitute, Cemented, Open Approach (ICD-10-PCS; CPT 27447; principal; 2018-06-26 07:30)
DX: M17.11 Unilateral primary osteoarthritis, right knee (principal); Z96.651 Presence of right artificial knee joint; K21.9 Gastro-esophageal reflux disease without esophagitis; I10 Essential (primary) hypertension; R45.89 Other symptoms and signs involving emotional state; J44.9 Chronic obstructive pulmonary disease, unspecified; E11.42 Type 2 diabetes mellitus with diabetic polyneuropathy; T50.905A Adverse effect of unspecified drugs, medicaments and biological substances, initial encounter; R11.10 Vomiting, unspecified
CPT/HCPCS: 27447; 36415; 85027; 97110; 97162; 97530; 99223; 99255; J1650; NC; 73560; J0690; J1885; L1830

== ENCOUNTER → 2018-06-28 10:16 | Outpatient (BNVA) | payer MEDICARE, SELFPAY | PROVIDERS: PCP Nurse Practitioner; Visit Provider Psychiatry & Neurology Neurology | DX: R69 Illness, unspecified (principal) ==

== ENCOUNTER → 2018-07-13 09:00 | Outpatient (BNVA) | payer MEDICARE, SELFPAY | PROVIDERS: PCP Nurse Practitioner; Referring Provider Nurse Practitioner; Visit Provider Orthopaedic Surgery | DX: Z47.1 Aftercare following joint replacement surgery (principal); Z96.651 Presence of right artificial knee joint ==

== ENCOUNTER → 2018-08-10 09:11 | Outpatient (BNVA) | payer MEDICARE, SELFPAY | PROVIDERS: PCP Nurse Practitioner; Referring Provider Nurse Practitioner; Visit Provider Orthopaedic Surgery | DX: Z47.1 Aftercare following joint replacement surgery (principal); Z96.651 Presence of right artificial knee joint; J44.9 Chronic obstructive pulmonary disease, unspecified ==

== ENCOUNTER 2018-08-16 11:01 | Observation (INO) | payer MEDICARE, SELFPAY ==
[2018-08-16] VITALS (28 sets, daily range): BP systolic 134–192; BP diastolic 62–97; PULSE 71–100; RESP 18–19; TEMP 36.4–37.1; O2SAT 93–99
--- NOTE | 2018-08-16 11:13 | DI.CT_ITS ---
SYMPTOMS/DIAGNOSIS: ALTERED MENTAL STATUS CRANIAL CT: A noncontrast enhanced examination was performed. There is no evidence of an intra or extra-axial hemorrhage. There atrophic changes consistent with age and regions of diminished absorption in the frontoparietal white matter bilaterally would be consistent with small vessel disease. There is no evidence of a skull fracture. The paranasal sinuses are intact. There is no evidence of a mastoid effusion. SUMMARY: No acute intracranial abnormality is demonstrated.
--- NOTE | 2018-08-16 11:15 | W.ED.GENAD ---
Discharge Plan Disposition Patient Disposition: [facility] INPATIENT Condition: Stable Discharge Details Chief Complaint: AMS/LOC Clinical Impression: Change in mental status Primary Care Provider: Savanna Guillen ED Provider: Rajiv Butts Home Meds and New Rx's Prescriptions: No Action lovastatin 10 mg tablet 10 mg PO DAILY Qty: 90 RF: 3 oxybutynin chloride 5 mg tablet extended release 24hr 5 mg PO DAILY Qty: 90 RF: 3 aspirin 81 mg tablet,delayed release (DR/EC) 81 mg PO DAILY RF: 0 lisinopril 5 mg tablet 5 mg PO DAILY 3 Days Qty: 90 RF: 3 metoprolol tartrate 25 mg tablet 25 mg PO BID Qty: 180 RF: 3 pregabalin 100 mg capsule 100 mg PO BID Qty: 60 RF: 3 pantoprazole 40 mg tablet,delayed release (DR/EC) 40 mg PO DAILY Qty: 90 RF: 3 blood-glucose meter [Logi-Serve Ultra2] 1 EACH kit 1 ea Miscellaneous DAILY Qty: 1 RF: 0 nitroglycerin [Nitrostat] 0.4 MG tablet, sublingual 0.4 mg Sublingual Q5 MIN PRN X3 PRNQty: 1 RF: 3 Varicella-Zoster Ge/As01b/Pf [Shingrix Vial Kit] 50 MCG INJ 50 mcg IM ONCE Qty: 1 RF: 1 nortriptyline 10 mg capsule 10 mg PO HS Qty: 90 RF: 3 albuterol sulfate [ProAir HFA] 90 mcg/actuation HFA aerosol inhaler 1 - 2 puff Inhalation Q4H PRN Qty: 1 RF: 12 ranitidine HCl 150 mg tablet 150 mg PO BID Qty: 180 RF: 1 Lantus Solostar U-100 Insulin 100 unit/mL (3 mL) insulin pen 20 unit Sub-Q BID Qty: 3 RF: 0 lancets [OMGPOPTouch UltraSoft Lancets] misc 1 ea Miscellaneous DAILY Qty: 200 RF: 3 pen needle, diabetic [BD Ultra-Fine Marilyn Pen Needle] 32 gauge x 5/32 needle 1 unit Miscellaneous HS Qty: 200 RF: 3 blood sugar diagnostic strip .ROUTE .MEDSUPPLY Qty: 200 RF: 3 hydrocodone-acetaminophen 5-325 mg tablet 1 tab PO Q6H PRN (Reason: pain) Qty: 20 RF: 0 celecoxib [Celebrex] 200 mg capsule 200 mg PO DAILY Qty: 20 RF: 0 Medical Decision Making 82-year-old female presents from home with her live-in roommate. Yesterday she had 7-8 episodes of emesis with mild nausea and decreased p.o. intake throughout the day. Today she is generally confused, poorly oriented, but has not had any focal neurologic deficits. She arrives to emergency department pleasant, awake, alert, with a nonfocal neurologic exam. She is confused and unable to correctly state the date or the president. Differential diagnosis is broad including intracranial pathology, dehydration, electrolyte abnormality, occult infection. Patient referred for laboratory testing, urinalysis, chest x-ray, CT scan of the head. Her diagnostics findings reveal a white count of 6, hematocrit 35, platelets 205. Sodium 139, calcium 4.0, chloride 103, bicarb 27, BUN 18 with a creatinine of 1.1; renal function increased over baseline. Slightly hyperglycemic with a glucose of 248. Note of magnesium 1.6. Troponin negative. Images: CT scan of the head and chest x-ray unremarkable for acute process. Patient remains without significant complaint although persistently confused which is new from baseline according to her roommate. Discussed with Dr. Perez and will admit for further observation and management Lab Data Lab results reviewed: Yes I reviewed the patient's lab results. Laboratory Results - last 24 hr 08/16/18 08/16/18 08/16/18 11:27 11:27 11:27 WBC 6.10 RBC 4.13 Hgb 11.9 L Hct 35.8 L MCV 86.7 MCH 28.8 MCHC 33.2 RDW 13.4 Plt Count 205 MPV 10.0 Immature Gran % 0.2 Neutrophils % 63.5 Lymphocytes % 26.1 Monocytes % 8.9 Eosinophils % 1.1 Basophils % 0.2 Absolute Neutrophils 3.88 Absolute Lymphocytes 1.59 Absolute Monocytes 0.54 Absolute Eosinophils 0.07 Absolute Basophils 0.01 Sodium 139 Potassium 4.0 Chloride 103 Carbon Dioxide 27.3 Anion Gap 8.7 BUN 18 Creatinine 1.15 H Estimated GFR/1.73 m2 45.29 Glucose 248 H Calcium 8.9 Magnesium 1.6 L Total Bilirubin 1.0 AST 12 L ALT 11 L Alkaline Phosphatase 119 H Troponin I < 0.05 Total Protein 6.9 Albumin 3.3 L Urine Color Urine Clarity Urine pH Ur Specific [place] Urine Protein Urine Ketones Urine Blood Urine Nitrite Urine Bilirubin Urine Urobilinogen Ur Leukocyte Esterase Urine Glucose Ethyl Alcohol < 3.0 08/16/18 12:22 WBC RBC Hgb Hct MCV MCH MCHC RDW Plt Count MPV Immature Gran % Neutrophils % Lymphocytes % Monocytes % Eosinophils % Basophils % Absolute Neutrophils Absolute Lymphocytes Absolute Monocytes Absolute Eosinophils Absolute Basophils Sodium Potassium Chloride Carbon Dioxide Anion Gap BUN Creatinine Estimated GFR/1.73 m2 Glucose Calcium Magnesium Total Bilirubin AST ALT Alkaline Phosphatase Troponin I Total Protein Albumin Urine Color Yellow Urine Clarity Clear Urine pH 6.5 Ur Specific [place] 1.010 Urine Protein Negative Urine Ketones Negative Urine Blood Negative Urine Nitrite Negative Urine Bilirubin Negative Urine Urobilinogen 0.2 Ur Leukocyte Esterase Negative Urine Glucose Negative Ethyl Alcohol ECG Data Attestation: I personally reviewed and interpreted this ECG (s) as follows: Interpretation: Normal sinus rhythm with a rate of 77, the QRS is narrow, no ST segment elevation HPI General Mode of arrival: ambulatory. Date/Time Provider Initiated Documentation: 08/16/18 11:05. Limitations to Documentation: no limitations. Information obtained by: patient and family. History of Present Illness 82 year old F presents to the emergency department with the chief complaint of Nauseated and vomiting multiple times yesterday. General confusion today, described as moderate, Quality is described as dull, Patient reports no radiation. Patient started experiencing this hour(s) and it has been constant. No relieving factors improve symptom(s), No exacerbating factors reported . Patient notes confusion and other (Nauseated, no vomiting. Denies headache. No focal motor deficits.); denies fever/chills and headaches. Patient did receive the following treatments prior to arrival, none Related Data Home Medications Medication Instructions Recorded Confirmed blood-glucose meter [OneTouch #1 kit 08/15/15 08/10/18 Ultra2] nitroglycerin [Nitrostat] 0.4 mg SUBLINGUAL Q5 MIN PRN X3 08/29/17 08/10/18 PRN #1 bottle nortriptyline 10 mg capsule 10 mg PO HS #90 cap 02/13/18 08/10/18 albuterol sulfate HFA 90 1 - 2 puff INHALATION Q4H PRN #1 03/28/18 08/10/18 mcg/actuation aerosol inhaler inhaler lovastatin 10 mg tablet 10 mg PO DAILY #90 tab-cap 04/17/18 08/10/18 oxybutynin chloride ER 5 mg 5 mg PO DAILY #90 tab 04/17/18 08/10/18 tablet,extended release 24 hr ranitidine 150 mg tablet 150 mg PO BID #180 tab-cap 05/29/18 08/10/18 aspirin 81 mg tablet,delayed 81 mg PO DAILY 06/22/18 08/10/18 release lisinopril 5 mg tablet 5 mg PO DAILY 3 Days #90 tab-cap 06/22/18 08/10/18 metoprolol tartrate 25 mg tablet 25 mg PO BID #180 tab 06/22/18 08/10/18 pantoprazole 40 mg tablet,delayed 40 mg PO DAILY #90 tab 06/22/18 08/10/18 release pregabalin 100 mg capsule 100 mg PO BID #60 cap 06/22/18 08/10/18 celecoxib [Celebrex] 200 mg PO DAILY #20 cap 06/29/18 08/10/18 hydrocodone-acetaminophen 1 tab PO Q6H PRN #20 tab 06/29/18 08/10/18 insulin glargine (U-100) 100 20 unit SUB-Q BID #3 ml 08/10/18 08/10/18 unit/mL (3 mL) subcutaneous pen lancets #200 each 08/10/18 08/10/18 pen needle, diabetic 32 gauge x #200 each 08/10/18 08/10/18 blood sugar diagnostic strips #200 each 08/16/18 Previous Rx's Medication Instructions Recorded nortriptyline 10 mg capsule 10 mg PO HS #90 cap 02/13/18 albuterol sulfate HFA 90 1 - 2 puff INHALATION Q4H PRN #1 03/28/18 mcg/actuation aerosol inhaler inhaler lovastatin 10 mg tablet 10 mg PO DAILY #90 tab-cap 04/17/18 oxybutynin chloride ER 5 mg 5 mg PO DAILY #90 tab 04/17/18 tablet,extended release 24 hr ranitidine 150 mg tablet 150 mg PO BID #180 tab-cap 05/29/18 lisinopril 5 mg tablet 5 mg PO DAILY 3 Days #90 tab-cap 06/22/18 metoprolol tartrate 25 mg tablet 25 mg PO BID #180 tab 06/22/18 pantoprazole 40 mg tablet,delayed 40 mg PO DAILY #90 tab 06/22/18 release pregabalin 100 mg capsule 100 mg PO BID #60 cap 06/22/18 celecoxib [Celebrex] 200 mg PO DAILY #20 cap 06/29/18 hydrocodone-acetaminophen 1 tab PO Q6H PRN #20 tab 06/29/18 insulin glargine (U-100) 100 20 unit SUB-Q BID #3 ml 08/10/18 unit/mL (3 mL) subcutaneous pen lancets #200 each 08/10/18 pen needle, diabetic 32 gauge x #200 each 08/10/18 blood sugar diagnostic strips #200 each 08/16/18 Allergies Allergy/AdvReac Type Severity Reaction Status Date / Time Penicillins Allergy Severe skin rash Verified 08/10/18 09:24 atorvastatin AdvReac Intermediate muscle Verified 08/10/18 09:24 aches metformin AdvReac Intermediate Diarrhea Verified 08/10/18 09:24 General RAFAELA: 3 Review of Systems Review of Systems No recent illness. No suspicious food contacts. No diarrhea. No recent travel. 8 systems reviewed and otherwise negative [facility] Medical History Heart murmur (Acute) History of rheumatic fever (Acute) Tendonitis of left rotator cuff (Acute) COPD (chronic obstructive pulmonary disease) Rectal bleed (Acute) Colitis (Acute) JEMIMA (acute kidney injury) (Acute) Primary osteoarthritis of right knee (Chronic) Urinary incontinence (Acute 06/05/14) Tinnitus of both ears (Acute 09/26/14) Syncope (Acute 05/15/14) Skin lesion of left ear (Acute 10/31/15) Sensorineural hearing loss, bilateral (Acute 09/13/13) Sciatica (Acute 02/19/11) Primary osteoarthritis involving multiple joints (Acute 10/30/14) Positive cardiac stress test (Acute 06/30/17) Osteopenia (Acute 02/19/11) Hyperlipidemia (Acute 02/19/11) Gastroesophageal reflux disease (Acute 02/19/11) Gastritis, chronic (Acute 12/13/16) Fibromyalgia (Acute 12/18/14) Essential hypertension (Chronic 07/27/12) Edema (Acute 09/05/15) Diverticulitis of colon (Acute 02/19/11) Diabetic neuropathy (Chronic 01/24/14) Diabetes mellitus with neuropathy (Chronic) Atherosclerosis of [place] coronary artery of [place] heart with angina pectoris (Acute) Angina at rest (Acute 02/19/11) CAD (coronary artery disease) (Chronic) Old myocardial infarction (Chronic) GERD (gastroesophageal reflux disease) (Chronic) Type 2 diabetes mellitus (Chronic) Diabetic neuropathy (Chronic) H/O diverticulitis of colon (Chronic) Hypertension (Chronic) Hearing loss of both ears (Chronic) Tinnitus (Chronic) Osteoporosis (Chronic) Sciatica (Chronic) Chest pain (Acute 04/28/14) Syncope (Acute 04/28/14) Chronic kidney disease, stage III (moderate) (Chronic) Family History Father Heart disease Sister Stomach cancer Mother No problems noted. Social History Smoking/Tobacco Use Status: Former Tobacco Use Alcohol Intake: current Alcohol Intake frequency: holidays/special occasions only Drug use: Never Household members: other What type of physical activity do you participate in: none Seatbelt use: always Drive intox or ride w/intox motor pool driver: No Working smoke detector in home: Yes Fire extinguisher in home: Yes Carbon monox detector in home: Yes Do you feel safe in your relationship?: Yes Exam Narrative Exam Narrative: GEN: awake, alert, oriented to person and place. Pleasant, well groomed, interactive. HEAD: Normocephalic, atraumatic ENT: Mucous membranes moist, oropharynx unremarkable, External ear exam unremarkable EYES: PERRL, EOMI NECK: Full ROM, no [place], no menigismus CHEST/RESP: Nontender, clear to auscultation bilateral, no wheeze/rhonchi/rales CARDIOVASCULAR: RRR, no murmur, rub aquiles. 2+ Rad pulse bilateral ABDOMEN: Soft, nontender, no mass. +Bowel sounds EXT: Full ROM, no edema, no rash Neuro: Grossly normal neurologic exam, conversant, interactive. Follows two-step commands. Cranial nerves II through XII intact. [id number] intact. [id number]-[id number] intact. Psych: Speech fluent, thoughts congruent, affect normal.
[2018-08-16] MEDS: Normal Saline 1,000 ML 150 ML IV (11:38)
[2018-08-16 11:46] LABS: Abs Immature Grans 0.01 k/cumm (0.0-0.09); Absolute Basophil Count 0.01 k/cumm (0.0-0.2); Absolute Eosinophil Count 0.07 k/cumm (0.0-0.7); Absolute Lymphocyte Count 1.59 k/cumm (1.2-3.4); Absolute Monocyte Count 0.54 k/cumm (0.11-0.7); Absolute Neutrophil Count 3.88 k/cumm (1.2-6.7); Basophils % 0.2; Eosinophils % 1.1; HCT 35.8 % (36.0-46.0); HGB 11.9 g/dL (12.0-15.5); Immature Grans % 0.2; Lymphocytes % 26.1; Mean Corp. HGB Concentration 33.2 g/dL (32.0-36.0); Mean Corpuscular Hemoglobin 28.8 pg (27.0-33.0); Mean Corpuscular Volume 86.7 fL (80-95); Monocytes % 8.9; Neutrophils % 63.5; Platelet Count 205 x1000/uL (130-400); RBC 4.13 m/cumm (4.00-5.20); RBC Distribution Width 13.4 % (11.7-14.6)
--- NOTE | 2018-08-16 12:07 | NUR.NOTE ---
Nursing Note: pt in CT, will obtain urine sample on arrival back to room
--- NOTE | 2018-08-16 12:09 | DI.RAD_ITS ---
SYMPTOMS/DIAGNOSIS: GENERAL CONFUSION PA AND LATERAL CHEST: The lungs are free of infiltrate. There is no pleural effusion. The heart is not enlarged. The hilar structures, mediastinum and tracheal air column are intact. SUMMARY: No evidence of acute cardiopulmonary disease.
[2018-08-16 12:13] LABS: ALT 11 U/L (12-78); AST 12 U/L (15-37); Albumin 3.3 g/dL (3.4-5.0); Alkaline Phosphatase 119 U/L (46-116); Anion Gap 8.7 mmol/L (3-11); BUN 18 mg/dL (7-18); CO2 27.3 mmol/L (21.0-32.0); CREATININE 1.15 mg/dL (0.55-1.02); Calcium 8.9 mg/dL (8.5-10.1); Chloride 103 mmol/L (98-107); Estimated GFR 45.29 (mL/min/1.73m2); Glucose 248 mg/dL (70-100); Sodium 139 mmol/L (136-145); Total Protein 6.9 g/dL (6.4-8.2)
[2018-08-16 12:16] LABS: ETHANOL BLOOD < 3.0 mg/dL (<3); Magnesium 1.6 mg/dL (1.8-2.4); Troponin I < 0.05 ng/mL (0.00-0.06)
[2018-08-16 12:34] LABS: Bilirubin Negative (Negative); Blood Negative (Negative); Clarity Clear (Clear); Glucose Negative (Negative); Ketones Negative (Negative); Leukocyte Esterase Negative (Negative); Nitrite Negative (Negative); Urobilinogen 0.2 EU/dL (Up TO 0.2); pH 6.5 (5-8)
[2018-08-16 13:31] LABS: TSH 2.28 uIU/mL (0.358-3.74)
--- NOTE | 2018-08-16 14:00 | NUR.NOTE ---
Nursing Note: pt able to ambulate to and from bathroom without difficulty, with RN. Steady gait noted.
--- NOTE | 2018-08-16 14:53 | W.PM.HP.N ---
Date of service: 08/16/18 Time of Service: 14:53 Assessment and Plan (1) Amnesia: Current visit: Yes Status: Acute I think that the fact that this episode was associated with vomiting yesterday and not taking medications all day is pointing to a possible withdrawal seizure from lyrica. Other diagnoses on differential are: hypertensive encephalopathy (but BP's are not so high where we would expect to see this), CVA (I doubt this; also, we could not obtain an MRI), psychogenic, side effect of medication. Will seek phone consultation with neurology. Patient is already on asa. Check lipids. Gently lower BP. Obtain EEG. Unfortunately, neurology is not available at [facility] for the next 5 days - patient is aware and is ok with staying here as long as there is no clear indication for transfer. (2) Dehydration: Current visit: Yes Status: Acute Likely due to vomiting. (3) Hypomagnesemia: Current visit: Yes Status: Acute Replete (4) Essential hypertension: Current visit: No Status: Chronic resume home medications. (5) Fibromyalgia: Current visit: No Status: Acute On lyrica - this could have caused a withdrawal seizure. Will continue lyrica for now and monitor mental status since its reinstitution. (6) Gastroesophageal reflux disease: Current visit: No Status: Acute Continue ranitidine (7) Diabetes mellitus with neuropathy: Current visit: No Status: Chronic Lower long acting insulin slightly; cover with SSI (8) Discharge planning issues: Current visit: No Status: Acute DNI per my conversation with her (9) DVT prophylaxis: Current visit: No Status: Acute TEDs + SCD's until more information is available about etiology of confusion. If acute CVA, could increase risk of hemorrhagic conversion. History of Present Illness Chief Complaint: I can't remember Narrative: Ms Quiroz is an 82 year old female with PMHx of CAD s/p OK/stents x2, as well as IDDM2, HTN, hyperlipidemia, fibromyalgia on lyrica, as well as an episode of behavioral change when she was hospitalized at [facility] in June in context of recent surgery and vomiting, who presented to [facility] ED today with memory loss that was noticed when she first woke up this morning. The patient does not know why she is here, points at her friend and says she brought me here. She does not remember yesterday. Her friend/roommate fills in that yesterday the patient vomited several times and did not take any of her meds, including lyrica. She did not have fever, abdominal pain, or diarrhea. She did not fall or lose consciousness. Per roommate, she did a lot of sleeping yesterday. The patient fills in that she always sleeps a lot. There have been no witnessed seizures and the patient does not have a history of diagnosed seizures. The patient denies headache, neck pain, visual changes, tick bites, fevers, cough, abdominal pain or nausea today. In June, she had an episode of unresponsiveness with eyes open for 10 minutes on post-op day 2 after surgery, also associated with vomiting. At the time, it was felt that this episode was due to post-op medications. In the ED, her BP was somewhat labile (sometimes SBP in 130's, sometimes in 190's) - importantly, the patient had not taken her medications. Her workup and neurologic exams were nonfocal and significant only for this memory loss/disorientation. We were asked to admit the patient for further care. Review of Systems Review of Systems 12 systems reviewed. Pertinent positives and negatives are as per HPI. [facility] Medical History Heart murmur (Acute) History of rheumatic fever (Acute) Tendonitis of left rotator cuff (Acute) COPD (chronic obstructive pulmonary disease) Rectal bleed (Acute) Colitis (Acute) JEMIMA (acute kidney injury) (Acute) Primary osteoarthritis of right knee (Chronic) Urinary incontinence (Acute 06/05/14) Tinnitus of both ears (Acute 09/26/14) Syncope (Acute 05/15/14) Skin lesion of left ear (Acute 10/31/15) Sensorineural hearing loss, bilateral (Acute 09/13/13) Sciatica (Acute 02/19/11) Primary osteoarthritis involving multiple joints (Acute 10/30/14) Positive cardiac stress test (Acute 06/30/17) Osteopenia (Acute 02/19/11) Hyperlipidemia (Acute 02/19/11) Gastroesophageal reflux disease (Acute 02/19/11) Gastritis, chronic (Acute 12/13/16) Fibromyalgia (Acute 12/18/14) Essential hypertension (Chronic 07/27/12) Edema (Acute 09/05/15) Diverticulitis of colon (Acute 02/19/11) Diabetic neuropathy (Chronic 01/24/14) Diabetes mellitus with neuropathy (Chronic) Atherosclerosis of [place] coronary artery of [place] heart with angina pectoris (Acute) Angina at rest (Acute 02/19/11) CAD (coronary artery disease) (Chronic) Old myocardial infarction (Chronic) GERD (gastroesophageal reflux disease) (Chronic) Type 2 diabetes mellitus (Chronic) Diabetic neuropathy (Chronic) H/O diverticulitis of colon (Chronic) Hypertension (Chronic) Hearing loss of both ears (Chronic) Tinnitus (Chronic) Osteoporosis (Chronic) Sciatica (Chronic) Chest pain (Acute 04/28/14) Syncope (Acute 04/28/14) Chronic kidney disease, stage III (moderate) (Chronic) Surgical History S/P right knee arthroscopy (Acute) Extraction of cataract Colonoscopy - MAC (12/13/16) Coronary Stent (07/12/17) EGD - MAC (12/13/16) Tonsillectomy Postsurgical percutaneous transluminal coronary angioplasty status (Chronic) Status post implantation of urinary electronic stimulator device (Chronic) Family History Father Heart disease Sister Stomach cancer Mother No problems noted. 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 Working smoke detector in home: Yes Fire extinguisher in home: Yes Carbon monox detector in home: Yes Do you feel safe in your relationship?: Yes Meds Home Medications Medication Instructions Recorded Confirmed Type blood-glucose meter [OneTouch #1 kit 08/15/15 08/10/18 History Ultra2] nitroglycerin [Nitrostat] 0.4 mg SUBLINGUAL Q5 MIN PRN X3 08/29/17 08/16/18 History PRN #1 bottle nortriptyline 10 mg capsule 10 mg PO HS #90 cap 02/13/18 08/16/18 Rx albuterol sulfate HFA 90 1 - 2 puff INHALATION Q4H PRN #1 03/28/18 08/16/18 Rx mcg/actuation aerosol inhaler inhaler ranitidine 150 mg tablet 150 mg PO BID #180 tab-cap 05/29/18 08/16/18 Rx aspirin 81 mg tablet,delayed 81 mg PO HS 06/22/18 08/16/18 History release metoprolol tartrate 25 mg tablet 25 mg PO BID #180 tab 06/22/18 08/16/18 Rx pregabalin 100 mg capsule 100 mg PO BID #60 cap 06/22/18 08/16/18 Rx lancets #200 each 08/10/18 08/10/18 Rx pen needle, diabetic 32 gauge x #200 each 08/10/18 08/10/18 Rx /32 Lantus Solostar U-100 Insulin 38 unit SUB-Q HS 08/16/18 08/16/18 History blood sugar diagnostic strips #200 each 08/16/18 Rx lisinopril 5 mg PO HS 08/16/18 08/16/18 History loperamide 2 mg PO TID PRN PRN 08/16/18 08/16/18 History lovastatin 10 mg PO HS 08/16/18 08/16/18 History oxybutynin chloride 5 mg PO HS 08/16/18 History pantoprazole 40 mg PO HS 08/16/18 08/16/18 History Allergies Allergy/AdvReac Type Severity Reaction Status Date / Time Penicillins Allergy Severe skin rash Verified 08/10/18 09:24 atorvastatin AdvReac Intermediate muscle Verified 08/10/18 09:24 aches metformin AdvReac Intermediate Diarrhea Verified 08/10/18 09:24 Exam Narrative Exam Narrative: General: Very pleasant well nourished well developed elderly female, appears older than her stated age, A&Ox1 (knows she is in the hospital which is in [place], does not know city, name of hospital, or date), knows who the president is, otherwise in good spirits, answering questions appropriately Neurological: A&Ox1, no focal deficits, but does seem to have slight inattention/difficulty understanding the finger - to - nose test. CN II - XII intact, sensory intact, strength 5/5 throughout. Patellar reflex is hard to obtain on R knee (recent surgery); otherwise 1+ DTR's B; plantar response flexion. Psychiatric: appropriate speech pattern/content Skin: evidence of solar keratoses; otherwise, intact; R knee incision is healing beautifully HEENT: Atraumatic, normocephalic, EOMI, MMM, Clear oropharynx, no submandibular or cervical lymphadenopathy, no goiter or JVD Cardiovascular: RRR, slight VALE Lungs: CTAB Gastrointestinal: abdomen is soft, nontender, nondistended Extremities: no e/c/c BLE's, 2+ pedal pulses B, 5/5 strenght; R knee incision healing well, slightly warm to touch Results Imaging Additional studies: CT head: No acute intracranial abnormality is demonstrated. CXR: No evidence of acute cardiopulmonary disease. Labs : 08/16/18 11:27 08/16/18 11:27 Laboratory Results - last 24 hr 08/16/18 08/16/18 08/16/18 11:27 11:27 11:27 WBC 6.10 RBC 4.13 Hgb 11.9 L Hct 35.8 L MCV 86.7 MCH 28.8 MCHC 33.2 RDW 13.4 Plt Count 205 MPV 10.0 Immature Gran % 0.2 Neutrophils % 63.5 Lymphocytes % 26.1 Monocytes % 8.9 Eosinophils % 1.1 Basophils % 0.2 Absolute Neutrophils 3.88 Absolute Lymphocytes 1.59 Absolute Monocytes 0.54 Absolute Eosinophils 0.07 Absolute Basophils 0.01 Sodium 139 Potassium 4.0 Chloride 103 Carbon Dioxide 27.3 Anion Gap 8.7 BUN 18 Creatinine 1.15 H Estimated GFR/1.73 m2 45.29 Glucose 248 H Calcium 8.9 Magnesium 1.6 L Total Bilirubin 1.0 AST 12 L ALT 11 L Alkaline Phosphatase 119 H Troponin I < 0.05 Total Protein 6.9 Albumin 3.3 L TSH Urine Color Urine Clarity Urine pH Ur Specific [place] Urine Protein Urine Ketones Urine Blood Urine Nitrite Urine Bilirubin Urine Urobilinogen Ur Leukocyte Esterase Urine Glucose Ethyl Alcohol < 3.0 08/16/18 08/16/18 11:27 12:22 WBC RBC Hgb Hct MCV MCH MCHC RDW Plt Count MPV Immature Gran % Neutrophils % Lymphocytes % Monocytes % Eosinophils % Basophils % Absolute Neutrophils Absolute Lymphocytes Absolute Monocytes Absolute Eosinophils Absolute Basophils Sodium Potassium Chloride Carbon Dioxide Anion Gap BUN Creatinine Estimated GFR/1.73 m2 Glucose Calcium Magnesium Total Bilirubin AST ALT Alkaline Phosphatase Troponin I Total Protein Albumin TSH 2.28 Urine Color Yellow Urine Clarity Clear Urine pH 6.5 Ur Specific [place] 1.010 Urine Protein Negative Urine Ketones Negative Urine Blood Negative Urine Nitrite Negative Urine Bilirubin Negative Urine Urobilinogen 0.2 Ur Leukocyte Esterase Negative Urine Glucose Negative Ethyl Alcohol Last Vital Signs Temp 36.8 C 08/16/18 11:13 Pulse 72 08/16/18 14:31 Resp 18 08/16/18 14:29 BP 164/65 H 08/16/18 14:31 Pulse Ox 97 08/16/18 14:31
--- NOTE | 2018-08-16 14:58 | HPE_ITS ---
Date of service: 08/16/18 Time of Service: 14:53 Assessment and Plan (1) Amnesia: Current visit: Yes Status: Acute I think that the fact that this episode was associated with vomiting yesterday and not taking medications all day is pointing to a possible withdrawal seizure from lyrica. Other diagnoses on differential are: hypertensive encephalopathy (but BP's are not so high where we would expect to see this), CVA (I doubt this; also, we could not obtain an MRI), psychogenic, side effect of medication. Will seek phone consultation with neurology. Patient is already on asa. Check lipids. Gently lower BP. Obtain EEG. Unfortunately, neurology is not available at [facility] for the next 5 days - patient is aware and is ok with staying here as long as there is no clear indication for transfer. (2) Dehydration: Current visit: Yes Status: Acute Likely due to vomiting. (3) Hypomagnesemia: Current visit: Yes Status: Acute Replete (4) Essential hypertension: Current visit: No Status: Chronic resume home medications. (5) Fibromyalgia: Current visit: No Status: Acute On lyrica - this could have caused a withdrawal seizure. Will continue lyrica for now and monitor mental status since its reinstitution. (6) Gastroesophageal reflux disease: Current visit: No Status: Acute Continue ranitidine (7) Diabetes mellitus with neuropathy: Current visit: No Status: Chronic Lower long acting insulin slightly; cover with SSI (8) Discharge planning issues: Current visit: No Status: Acute DNI per my conversation with her (9) DVT prophylaxis: Current visit: No Status: Acute TEDs + SCD's until more information is available about etiology of confusion. If acute CVA, could increase risk of hemorrhagic conversion. History of Present Illness Chief Complaint: I can't remember Narrative: Ms Quiroz is an 82 year old female with PMHx of CAD s/p VT/stents x2, as well as IDDM2, HTN, hyperlipidemia, fibromyalgia on lyrica, as well as an episode of behavioral change when she was hospitalized at [facility] in June in context of recent surgery and vomiting, who presented to [facility] ED today with memory loss that was noticed when she first woke up this morning. The patient does not know why she is here, points at her friend and says she brought me here. She does not remember yesterday. Her friend/roommate fills in that yesterday the patient vomited several times and did not take any of her meds, including lyrica. She did not have fever, abdominal pain, or diarrhea. She did not fall or lose consciousness. Per roommate, she did a lot of sleeping yesterday. The patient fills in that she always sleeps a lot. There have been no witnessed seizures and the patient does not have a history of diagnosed seizures. The patient denies headache, neck pain, visual changes, tick bites, fevers, cough, abdominal pain or nausea today. In June, she had an episode of unresponsiveness with eyes open for 10 minutes on post-op day 2 after surgery, also associated with vomiting. At the time, it was felt that this episode was due to post-op medications. In the ED, her BP was somewhat labile (sometimes SBP in 130's, sometimes in 190's) - importantly, the patient had not taken her medications. Her workup and neurologic exams were nonfocal and significant only for this memory loss/disorientation. We were asked to admit the patient for further care. Review of Systems Review of Systems 12 systems reviewed. Pertinent positives and negatives are as per HPI. [facility] Medical History Heart murmur (Acute) History of rheumatic fever (Acute) Tendonitis of left rotator cuff (Acute) COPD (chronic obstructive pulmonary disease) Rectal bleed (Acute) Colitis (Acute) JEMIMA (acute kidney injury) (Acute) Primary osteoarthritis of right knee (Chronic) Urinary incontinence (Acute 06/05/14) Tinnitus of both ears (Acute 09/26/14) Syncope (Acute 05/15/14) Skin lesion of left ear (Acute 10/31/15) Sensorineural hearing loss, bilateral (Acute 09/13/13) Sciatica (Acute 02/19/11) Primary osteoarthritis involving multiple joints (Acute 10/30/14) Positive cardiac stress test (Acute 06/30/17) Osteopenia (Acute 02/19/11) Hyperlipidemia (Acute 02/19/11) Gastroesophageal reflux disease (Acute 02/19/11) Gastritis, chronic (Acute 12/13/16) Fibromyalgia (Acute 12/18/14) Essential hypertension (Chronic 07/27/12) Edema (Acute 09/05/15) Diverticulitis of colon (Acute 02/19/11) Diabetic neuropathy (Chronic 01/24/14) Diabetes mellitus with neuropathy (Chronic) Atherosclerosis of [place] coronary artery of [place] heart with angina pectoris (Acute) Angina at rest (Acute 02/19/11) CAD (coronary artery disease) (Chronic) Old myocardial infarction (Chronic) GERD (gastroesophageal reflux disease) (Chronic) Type 2 diabetes mellitus (Chronic) Diabetic neuropathy (Chronic) H/O diverticulitis of colon (Chronic) Hypertension (Chronic) Hearing loss of both ears (Chronic) Tinnitus (Chronic) Osteoporosis (Chronic) Sciatica (Chronic) Chest pain (Acute 04/28/14) Syncope (Acute 04/28/14) Chronic kidney disease, stage III (moderate) (Chronic) Surgical History S/P right knee arthroscopy (Acute) Extraction of cataract Colonoscopy - MAC (12/13/16) Coronary Stent (07/12/17) EGD - MAC (12/13/16) Tonsillectomy Postsurgical percutaneous transluminal coronary angioplasty status (Chronic) Status post implantation of urinary electronic stimulator device (Chronic) Family History Father Heart disease Sister Stomach cancer Mother No problems noted. 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 Working smoke detector in home: Yes Fire extinguisher in home: Yes Carbon monox detector in home: Yes Do you feel safe in your relationship?: Yes Meds Home Medications Medication Instructions Recorded Confirmed Type blood-glucose meter [OneTouch #1 kit 08/15/15 08/10/18 History Ultra2] nitroglycerin [Nitrostat] 0.4 mg SUBLINGUAL Q5 MIN PRN X3 08/29/17 08/16/18 History PRN #1 bottle nortriptyline 10 mg capsule 10 mg PO HS #90 cap 02/13/18 08/16/18 Rx albuterol sulfate HFA 90 1 - 2 puff INHALATION Q4H PRN #1 03/28/18 08/16/18 Rx mcg/actuation aerosol inhaler inhaler ranitidine 150 mg tablet 150 mg PO BID #180 tab-cap 05/29/18 08/16/18 Rx aspirin 81 mg tablet,delayed 81 mg PO HS 06/22/18 08/16/18 History release metoprolol tartrate 25 mg tablet 25 mg PO BID #180 tab 06/22/18 08/16/18 Rx pregabalin 100 mg capsule 100 mg PO BID #60 cap 06/22/18 08/16/18 Rx lancets #200 each 08/10/18 08/10/18 Rx pen needle, diabetic 32 gauge x #200 each 08/10/18 08/10/18 Rx /32 Lantus Solostar U-100 Insulin 38 unit SUB-Q HS 08/16/18 08/16/18 History blood sugar diagnostic strips #200 each 08/16/18 Rx lisinopril 5 mg PO HS 08/16/18 08/16/18 History loperamide 2 mg PO TID PRN PRN 08/16/18 08/16/18 History lovastatin 10 mg PO HS 08/16/18 08/16/18 History oxybutynin chloride 5 mg PO HS 08/16/18 History pantoprazole 40 mg PO HS 08/16/18 08/16/18 History Allergies Allergy/AdvReac Type Severity Reaction Status Date / Time Penicillins Allergy Severe skin rash Verified 08/10/18 09:24 atorvastatin AdvReac Intermediate muscle Verified 08/10/18 09:24 aches metformin AdvReac Intermediate Diarrhea Verified 08/10/18 09:24 Exam Narrative Exam Narrative: General: Very pleasant well nourished well developed elderly female, appears older than her stated age, A&Ox1 (knows she is in the hospital which is in [place], does not know city, name of hospital, or date), knows who the president is, otherwise in good spirits, answering questions appropriately Neurological: A&Ox1, no focal deficits, but does seem to have slight inattention/difficulty understanding the finger - to - nose test. CN II - XII intact, sensory intact, strength 5/5 throughout. Patellar reflex is hard to obtain on R knee (recent surgery); otherwise 1+ DTR's B; plantar response flexion. Psychiatric: appropriate speech pattern/content Skin: evidence of solar keratoses; otherwise, intact; R knee incision is healing beautifully HEENT: Atraumatic, normocephalic, EOMI, MMM, Clear oropharynx, no submandibular or cervical lymphadenopathy, no goiter or JVD Cardiovascular: RRR, slight VALE Lungs: CTAB Gastrointestinal: abdomen is soft, nontender, nondistended Extremities: no e/c/c BLE's, 2+ pedal pulses B, 5/5 strenght; R knee incision healing well, slightly warm to touch Results Imaging Additional studies: CT head: No acute intracranial abnormality is demonstrated. CXR: No evidence of acute cardiopulmonary disease. Labs : 08/16/18 11:27 08/16/18 11:27 Laboratory Results - last 24 hr 08/16/18 08/16/18 08/16/18 11:27 11:27 11:27 WBC 6.10 RBC 4.13 Hgb 11.9 L Hct 35.8 L MCV 86.7 MCH 28.8 MCHC 33.2 RDW 13.4 Plt Count 205 MPV 10.0 Immature Gran % 0.2 Neutrophils % 63.5 Lymphocytes % 26.1 Monocytes % 8.9 Eosinophils % 1.1 Basophils % 0.2 Absolute Neutrophils 3.88 Absolute Lymphocytes 1.59 Absolute Monocytes 0.54 Absolute Eosinophils 0.07 Absolute Basophils 0.01 Sodium 139 Potassium 4.0 Chloride 103 Carbon Dioxide 27.3 Anion Gap 8.7 BUN 18 Creatinine 1.15 H Estimated GFR/1.73 m2 45.29 Glucose 248 H Calcium 8.9 Magnesium 1.6 L Total Bilirubin 1.0 AST 12 L ALT 11 L Alkaline Phosphatase 119 H Troponin I < 0.05 Total Protein 6.9 Albumin 3.3 L TSH Urine Color Urine Clarity Urine pH Ur Specific [place] Urine Protein Urine Ketones Urine Blood Urine Nitrite Urine Bilirubin Urine Urobilinogen Ur Leukocyte Esterase Urine Glucose Ethyl Alcohol < 3.0 08/16/18 08/16/18 11:27 12:22 WBC RBC Hgb Hct MCV MCH MCHC RDW Plt Count MPV Immature Gran % Neutrophils % Lymphocytes % Monocytes % Eosinophils % Basophils % Absolute Neutrophils Absolute Lymphocytes Absolute Monocytes Absolute Eosinophils Absolute Basophils Sodium Potassium Chloride Carbon Dioxide Anion Gap BUN Creatinine Estimated GFR/1.73 m2 Glucose Calcium Magnesium Total Bilirubin AST ALT Alkaline Phosphatase Troponin I Total Protein Albumin TSH 2.28 Urine Color Yellow Urine Clarity Clear Urine pH 6.5 Ur Specific [place] 1.010 Urine Protein Negative Urine Ketones Negative Urine Blood Negative Urine Nitrite Negative Urine Bilirubin Negative Urine Urobilinogen 0.2 Ur Leukocyte Esterase Negative Urine Glucose Negative Ethyl Alcohol Last Vital Signs Temp 36.8 C 08/16/18 11:13 Pulse 72 08/16/18 14:31 Resp 18 08/16/18 14:29 BP 164/65 H 08/16/18 14:31 Pulse Ox 97 08/16/18 14:31
--- NOTE | 2018-08-16 15:43 | NUR.NOTE ---
Nursing Note: report given to maddy BRITO
[2018-08-16] MEDS: MAGNESIUM SULFATE 2 GM/50 ML BAG IVPB (17:12)
[2018-08-16] MEDS: Lisinopril 5 MG TAB (18:25)
[2018-08-16] MEDS: Pregabalin 100 MG CAP PO (20:05)
[2018-08-16] MEDS: Metoprolol 25 MG TAB PO (20:05)
[2018-08-16] MEDS: Nortriptyline 10 MG CAP PO (21:18)
[2018-08-16] MEDS: Lovastatin 20 MG TAB 10 MG PO (21:18)
[2018-08-16] MEDS: Oxybutynin-CR 5 MG TABCR PO (21:19)
[2018-08-16] MEDS: Aspirin E.C. 81 MG TABEC PO (21:19)
[2018-08-16] MEDS: Insulin Aspart 300 UNITS/3 ML PEN SC (21:19)
[2018-08-16] MEDS: Pantoprazole 40 MG TABCR PO (21:19)
[2018-08-16] MEDS: Insulin Glargine 300 UNITS/3 ML PEN 30 UNITS SC (21:20)
[2018-08-16 22:59] LABS: Troponin I < 0.05 ng/mL (0.00-0.06)
[2018-08-17 03:27] VITALS: BP 143/77; PULSE 70; RESP 18; TEMP 36.4; O2SAT 96
[2018-08-17 07:14] LABS: Abs Immature Grans 0.01 k/cumm (0.0-0.09); Absolute Basophil Count 0.01 k/cumm (0.0-0.2); Absolute Eosinophil Count 0.16 k/cumm (0.0-0.7); Absolute Lymphocyte Count 1.79 k/cumm (1.2-3.4); Absolute Monocyte Count 0.54 k/cumm (0.11-0.7); Absolute Neutrophil Count 2.58 k/cumm (1.2-6.7); Basophils % 0.2; Eosinophils % 3.1; HCT 35.9 % (36.0-46.0); HGB 11.6 g/dL (12.0-15.5); Immature Grans % 0.2; Lymphocytes % 35.2; Mean Corp. HGB Concentration 32.3 g/dL (32.0-36.0); Mean Corpuscular Hemoglobin 28.1 pg (27.0-33.0); Mean Corpuscular Volume 86.9 fL (80-95); Mean Platelet Volume 11.2 fL (8.0-11.0); Monocytes % 10.6; Neutrophils % 50.7; Platelet Count 267 x1000/uL (130-400); RBC 4.13 m/cumm (4.00-5.20); RBC Distribution Width 13.8 % (11.7-14.6); White Blood Cell Count 5.09 k/cumm (4.4-10.8)
[2018-08-17 07:20] VITALS: BP 117/77; PULSE 83; RESP 18; TEMP 36.5; O2SAT 97
[2018-08-17 07:35] LABS: Anion Gap 11.9 mmol/L (3-11); BUN 12 mg/dL (7-18); CO2 25.1 mmol/L (21.0-32.0); CREATININE 0.83 mg/dL (0.55-1.02); Calculated LDL 93 mg/dL; Chloride 107 mmol/L (98-107); Cholesterol 160 mg/dL (50-200); Glucose 83 mg/dL (70-100); HDL Cholesterol 42 mg/dL (40-60); Magnesium 2.1 mg/dL (1.8-2.4); Potassium 4.8 mmol/L (3.5-5.1); Sodium 144 mmol/L (136-145); Triglyceride 128 mg/dL (30-150)
[2018-08-17 07:48] LABS: Troponin I < 0.05 ng/mL (0.00-0.06)
[2018-08-17 07:52] VITALS: PULSE 81
[2018-08-17] MEDS: Pregabalin 100 MG CAP PO (08:06)
[2018-08-17] MEDS: Metoprolol 25 MG TAB PO (08:06)
[2018-08-17 11:51] VITALS: BP 149/80; PULSE 75; RESP 19; TEMP 36.3; O2SAT 98
[2018-08-17] MEDS: Insulin Aspart 300 UNITS/3 ML PEN SC (12:01)
--- NOTE | 2018-08-17 13:45 | PDOC.CMIN ---
- If Service Date Differs Date of service: 08/17/18 Time of Service: 13:45 Care Management Initial Assess REASON FOR HOSPITALIZATION:: AMS PAST MEDICAL HISTORY/PAST SURGICAL HISTORY:: Medical Hx: Angina at rest, atherosclerosis, CAD, chest pain, CKD Stage III, DM with neuropathy, diverticulitis of colon, edema, essential hypertension, fibromyalgia, gastritis; chronic, GERD, Bilat hearing loss, hyperlipidemia, hypertension, old ND, osteopenia, osteoporosis, osteoarthritis, sciatica, lesion of left ear, syncope, tinnitus. Surgical Hx: Right knee replacement PREVIOUS FUNCTIONAL STATUS/SOCIAL/FAMILY SUPPORTS:: Sonia resides in [facility] with her friend Maureen. 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 Sonia is independent at baseline continues to drives and that her friend are able to manage their ADLs together. CURRENT FUNCTIONAL STATUS:: Sonia is sitting up in the chair she is talking with her friend and is alert. She remains observation for AMS upon admission. She appears to have cleared mentally and is able to engage in conversation with CM. ADVANCE DIRECTIVES:: None on file at [facility] - Offered packet Has patient been provided with information about the portal?: Yes Did the patient sign up for the portal?: No (already enrolled) CODE STATUS:: DNI INSURANCE COVERAGE / FINANCIAL ISSUES:: Medicare and AARP CURRENT HOME/COMMUNITY SERVICES/EQUIPMENT:: [facility] PRIMARY CARE PHYSICIAN:: Savanna Guillen POTENTIAL DISCHARGE NEEDS:: Follow up with Neurology if recomended and primary care as directed status post hospital admission. PATIENT/FAMILY EDUCATION NEEDS:: Review discharge instructions, any limitations, and ongoing discharge planning discussion, Ask Me Three. ANTICIPATED BARRIERS TO DISCHARGE:: None identified TRANSPORTATION:: Via private car with friend Loulou at time of discharge. PLAN:: Sonia is being monitored for change in mental status, encephalopathy, question of seizure related to not taking her medications r/t to multiple emesis prior to admission. Plan will be for her to be discharged home once medically cleared per provider. No addtional services needed she will need to follow up with primary care as directed.
--- NOTE | 2018-08-17 13:59 | INITIAL_ITS ---
- If Service Date Differs Date of service: 08/17/18 Time of Service: 13:45 Care Management Initial Assess REASON FOR HOSPITALIZATION:: AMS PAST MEDICAL HISTORY/PAST SURGICAL HISTORY:: Medical Hx: Angina at rest, atherosclerosis, CAD, chest pain, CKD Stage III, DM with neuropathy, diverticulitis of colon, edema, essential hypertension, fibromyalgia, gastritis; chronic, GERD, Bilat hearing loss, hyperlipidemia, hypertension, old DE, osteopenia, osteoporosis, osteoarthritis, sciatica, lesion of left ear, syncope, tinnitus. Surgical Hx: Right knee replacement PREVIOUS FUNCTIONAL STATUS/SOCIAL/FAMILY SUPPORTS:: Sonia resides in [facility] with her friend Maureen. 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 Sonia is independent at baseline continues to drives and that her friend are able to manage their ADLs together. CURRENT FUNCTIONAL STATUS:: Sonia is sitting up in the chair she is talking with her friend and is alert. She remains observation for AMS upon admission. She appears to have cleared mentally and is able to engage in conversation with CM. ADVANCE DIRECTIVES:: None on file at [facility] - Offered packet Has patient been provided with information about the portal?: Yes Did the patient sign up for the portal?: No (already enrolled) CODE STATUS:: DNI INSURANCE COVERAGE / FINANCIAL ISSUES:: Medicare and AARP CURRENT HOME/COMMUNITY SERVICES/EQUIPMENT:: [facility] PRIMARY CARE PHYSICIAN:: Svaanna Guillen POTENTIAL DISCHARGE NEEDS:: Follow up with Neurology if recomended and primary care as directed status post hospital admission. PATIENT/FAMILY EDUCATION NEEDS:: Review discharge instructions, any limitations, and ongoing discharge planning discussion, Ask Me Three. ANTICIPATED BARRIERS TO DISCHARGE:: None identified TRANSPORTATION:: Via private car with friend Loulou at time of discharge. PLAN:: Sonia is being monitored for change in mental status, encephalopathy, question of seizure related to not taking her medications r/t to multiple emesis prior to admission. Plan will be for her to be discharged home once medically cleared per provider. No addtional services needed she will need to follow up with primary care as directed.
--- NOTE | 2018-08-17 15:27 | W.PM.DS.N ---
Date of service: 08/17/18 Time of Service: 15:38 DS: Diagnosis Discharge Diagnosis (1) Transient global amnesia: Status: Acute (2) Dehydration: Status: Acute (3) Hypomagnesemia: Status: Acute (4) Essential hypertension: Status: Chronic (5) Fibromyalgia: Status: Acute (6) Gastroesophageal reflux disease: Status: Acute (7) Diabetes mellitus with neuropathy: Status: Chronic Discharge Plan Disposition Patient Disposition: HOME Condition: Stable Discharge Details Reason For Visit: ENCEPHALOPATHY Admit Date/Time: 08/16/18 14:38 Admit Provider: Jodi Perez Attending Provider: Jodi Perez Primary Care Provider: Savanna Guillen Hospital Course Hospital Course: Ms Quiroz is an 82 year old female with PMHx of CAD s/p [place]/stents x 2, IDDM2, HTN, Hyperlipidemia, an episode of transient unresponsiveness with her eyes open post-op in June of 2018, who was observed on hospitalist service from 08/16/2018 to 08/17/2018 for amnesia lasting about a day preceded by several episodes of vomiting the day before. The patient had missed all her medications the day of her GI illness, including her lyrica. When she presented to the ED, she was hypertensive with SBP's sometimes up to 190's. She had a negative CT of the head. She was observed on telemetry and remained in NSR throughout her stay. Her neurological status returned entirely back to normal by 08/17/18. She did have an EEG done while in the hospital, but the results of this are not available at the time of discharge. Neurology is also not available at our facility at this time, so the case was discussed with Dr De Guzman of neurology at [facility]. He felt that, based on the description of the case, it is most consistent with transient global amnesia, although a seizure could not be ruled out with this history. The patient can be discharged home with outpatient follow up - but is recommended to not be alone for the next 24-48 hours. The patient verbalizes understanding of these instructions and is ready for discharge. Her BP will need close monitoring on outpatient basis. Home Meds and New Rx's Prescriptions: Continued aspirin 81 mg tablet,delayed release (DR/EC) 81 mg PO HS RF: 0 metoprolol tartrate 25 mg tablet 25 mg PO BID Qty: 180 RF: 3 pregabalin 100 mg capsule 100 mg PO BID Qty: 60 RF: 3 blood-glucose meter [OneTouch Ultra2] 1 EACH kit 1 ea Miscellaneous DAILY Qty: 1 RF: 0 nitroglycerin [Nitrostat] 0.4 MG tablet, sublingual 0.4 mg Sublingual Q5 MIN PRN X3 PRNQty: 1 RF: 3 nortriptyline 10 mg capsule 10 mg PO HS Qty: 90 RF: 3 albuterol sulfate [ProAir HFA] 90 mcg/actuation HFA aerosol inhaler 1 - 2 puff Inhalation Q4H PRN Qty: 1 RF: 12 ranitidine HCl 150 mg tablet 150 mg PO BID Qty: 180 RF: 1 lancets [OneTouch UltraSoft Lancets] misc 1 ea Miscellaneous DAILY Qty: 200 RF: 3 pen needle, diabetic [BD Ultra-Fine Marilyn Pen Needle] 32 gauge x 5/32 needle 1 unit Miscellaneous HS Qty: 200 RF: 3 blood sugar diagnostic strip .ROUTE .MEDSUPPLY Qty: 200 RF: 3 loperamide 2 mg Tablet 2 mg PO TID PRN PRNRF: 0 lovastatin 10 mg tablet 10 mg PO HS RF: 0 pantoprazole 40 mg tablet,delayed release (DR/EC) 40 mg PO HS RF: 0 oxybutynin chloride 5 mg tablet extended release 24hr 5 mg PO HS RF: 0 lisinopril 5 mg tablet 5 mg PO HS RF: 0 Lantus Solostar U-100 Insulin 100 unit/mL (3 mL) insulin pen 38 unit Sub-Q HS RF: 0 Discharge Instructions Instructions: Transient Global Amnesia (GEN) Additional Instructions: Return to the hospital with any more neurological deficits, fever, bleeding, chest pain, or shortness of breath. Follow up with Dr Crews (neurology) as well as your PCP. Take your blood pressures daily and keep a log. Referrals: Jessy Crews MD [ [facility] STAFF PHYSICIAN] - Activity:: Activity as Tolerated Equipment/Supplies:: No Equipment Needed Diet:: heart healthy diabetic Discharge Orders Discharge Orders: Discharge Order (Routine); Ordered 08/17/18 Ordered By: Jodi Perez Exam Narrative Exam Narrative: General: elderly female, A&Ox3, NAD, no focal neurological deficits HEENT: EOMI, MMM Cardiovascular: RRR, slight VALE Lungs: CTAB Gastrointestinal: abdomen is soft, nontender, nondistended Extremities: no e/c/c BLE's, 2+ pedal pulses B, 5/5 strenght; R knee incision healing well, slightly warm to touch DS: Data Vitals/I&O Vitals and I&O: Vital Signs Temperature 36.3 C L 08/17/18 11:51 Temperature Source Tympanic 08/17/18 11:51 Pulse 75 08/17/18 11:51 Pulse Rhythm Regular 08/17/18 08:27 Respiratory Rate 19 08/17/18 11:51 Respiratory Effort Non-Labored 08/17/18 08:27 Respiratory Depth Normal 08/17/18 08:27 Respiratory Pattern Normal 08/17/18 08:27 Blood Pressure 149/80 H 08/17/18 11:51 Blood Pressure Mean 89 08/16/18 14:31 Pulse Oximetry 98 08/17/18 11:51 Oxygen Delivery Method Room Air 08/17/18 11:51 Oxygen Flow Rate 0 08/17/18 11:51 Pain Level 0 08/17/18 11:51 Intake & Output 08/16/18 08/17/18 08/17/18 23:59 11:59 23:59 Intake Total 1240 / 1240 480 / 720 240 / 720 Output Total 200 / 200 950 / 950 Balance 1040 / 1040 -470 / -230 240 / -230 Weight 72.575 kg 85 kg Intake: IV 1000 / 1000 Oral 240 / 240 480 / 720 240 / 720 Output: Urine 200 / 200 950 / 950 Other: Urine Color Yellow Pale Urine Appearance Clear Clear Voiding Methods Bedside Commode Toilet Completed studies during hospitalization [Text1]: CXR: No evidence of acute cardiopulmonary disease. CT head: No acute intracranial abnormality is demonstrated. Labs on day of discharge: Labs from last 24 hours 08/17/18 08/17/18 08/16/18 06:45 06:45 22:10 WBC 5.09 RBC 4.13 Hgb 11.6 L Hct 35.9 L MCV 86.9 MCH 28.1 MCHC 32.3 RDW 13.8 Plt Count 267 MPV 11.2 H Immature Gran % 0.2 Neutrophils % 50.7 Lymphocytes % 35.2 Monocytes % 10.6 Eosinophils % 3.1 Basophils % 0.2 Absolute Neutrophils 2.58 Absolute Lymphocytes 1.79 Absolute Monocytes 0.54 Absolute Eosinophils 0.16 Absolute Basophils 0.01 Sodium 144 Potassium 4.8 Chloride 107 Carbon Dioxide 25.1 Anion Gap 11.9 H BUN 12 D Creatinine 0.83 Estimated GFR/1.73 m2 >= 60.00 Glucose 83 D Calcium 9.0 Magnesium 2.1 Troponin I < 0.05 < 0.05 Triglycerides 128 Total Cholesterol 160 LDL Cholesterol, Calc 93 HDL Cholesterol 42 [facility] Medical History Heart murmur (Acute) History of rheumatic fever (Acute) Tendonitis of left rotator cuff (Acute) COPD (chronic obstructive pulmonary disease) Rectal bleed (Acute) Colitis (Acute) JEMIMA (acute kidney injury) (Acute) Primary osteoarthritis of right knee (Chronic) Urinary incontinence (Acute 06/05/14) Tinnitus of both ears (Acute 09/26/14) Syncope (Acute 05/15/14) Skin lesion of left ear (Acute 10/31/15) Sensorineural hearing loss, bilateral (Acute 09/13/13) Sciatica (Acute 02/19/11) Primary osteoarthritis involving multiple joints (Acute 10/30/14) Positive cardiac stress test (Acute 06/30/17) Osteopenia (Acute 02/19/11) Hyperlipidemia (Acute 02/19/11) Gastroesophageal reflux disease (Acute 02/19/11) Gastritis, chronic (Acute 12/13/16) Fibromyalgia (Acute 12/18/14) Essential hypertension (Chronic 07/27/12) Edema (Acute 09/05/15) Diverticulitis of colon (Acute 02/19/11) Diabetic neuropathy (Chronic 01/24/14) Diabetes mellitus with neuropathy (Chronic) Atherosclerosis of [place] coronary artery of [place] heart with angina pectoris (Acute) Angina at rest (Acute 02/19/11) CAD (coronary artery disease) (Chronic) Old myocardial infarction (Chronic) GERD (gastroesophageal reflux disease) (Chronic) Type 2 diabetes mellitus (Chronic) Diabetic neuropathy (Chronic) H/O diverticulitis of colon (Chronic) Hypertension (Chronic) Hearing loss of both ears (Chronic) Tinnitus (Chronic) Osteoporosis (Chronic) Sciatica (Chronic) Chest pain (Acute 04/28/14) Syncope (Acute 04/28/14) Chronic kidney disease, stage III (moderate) (Chronic) Surgical History S/P right knee arthroscopy (Acute) Extraction of cataract Colonoscopy - MAC (12/13/16) Coronary Stent (07/12/17) EGD - MAC (12/13/16) Tonsillectomy Postsurgical percutaneous transluminal coronary angioplasty status (Chronic) Status post implantation of urinary electronic stimulator device (Chronic) Family History Father Heart disease Sister Stomach cancer Mother No problems noted. 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
--- NOTE | 2018-08-17 15:37 | DSE_ITS ---
Date of service: 08/17/18 Time of Service: 15:38 DS: Diagnosis Discharge Diagnosis (1) Transient global amnesia: Status: Acute (2) Dehydration: Status: Acute (3) Hypomagnesemia: Status: Acute (4) Essential hypertension: Status: Chronic (5) Fibromyalgia: Status: Acute (6) Gastroesophageal reflux disease: Status: Acute (7) Diabetes mellitus with neuropathy: Status: Chronic Discharge Plan Disposition Patient Disposition: HOME Condition: Stable Discharge Details Reason For Visit: ENCEPHALOPATHY Admit Date/Time: 08/16/18 14:38 Admit Provider: Jodi Perez Attending Provider: Jodi Perez Primary Care Provider: Savanna Guillen Hospital Course Hospital Course: Ms Quiroz is an 82 year old female with PMHx of CAD s/p [place]/stents x 2, IDDM2, HTN, Hyperlipidemia, an episode of transient unresponsiveness with her eyes open post-op in June of 2018, who was observed on hospitalist service from 08/16/2018 to 08/17/2018 for amnesia lasting about a day preceded by several episodes of vomiting the day before. The patient had missed all her medications the day of her GI illness, including her lyrica. When she presented to the ED, she was hypertensive with SBP's sometimes up to 190's. She had a negative CT of the head. She was observed on telemetry and remained in NSR throughout her stay. Her neurological status returned entirely back to normal by 08/17/18. She did have an EEG done while in the hospital, but the results of this are not available at the time of discharge. Neurology is also not available at our facility at this time, so the case was discussed with Dr De Guzman of neurology at [facility]. He felt that, based on the description of the case, it is most consistent with transient global amnesia, although a seizure could not be ruled out with this history. The patient can be discharged home with outpatient follow up - but is recommended to not be alone for the next 24-48 hours. The patient verbalizes understanding of these instructions and is ready for discharge. Her BP will need close monitoring on outpatient basis. Home Meds and New Rx's Prescriptions: Continued aspirin 81 mg tablet,delayed release (DR/EC) 81 mg PO HS RF: 0 metoprolol tartrate 25 mg tablet 25 mg PO BID Qty: 180 RF: 3 pregabalin 100 mg capsule 100 mg PO BID Qty: 60 RF: 3 blood-glucose meter [OneTouch Ultra2] 1 EACH kit 1 ea Miscellaneous DAILY Qty: 1 RF: 0 nitroglycerin [Nitrostat] 0.4 MG tablet, sublingual 0.4 mg Sublingual Q5 MIN PRN X3 PRNQty: 1 RF: 3 nortriptyline 10 mg capsule 10 mg PO HS Qty: 90 RF: 3 albuterol sulfate [ProAir HFA] 90 mcg/actuation HFA aerosol inhaler 1 - 2 puff Inhalation Q4H PRN Qty: 1 RF: 12 ranitidine HCl 150 mg tablet 150 mg PO BID Qty: 180 RF: 1 lancets [OneTouch UltraSoft Lancets] misc 1 ea Miscellaneous DAILY Qty: 200 RF: 3 pen needle, diabetic [BD Ultra-Fine Marilyn Pen Needle] 32 gauge x 5/32 needle 1 unit Miscellaneous HS Qty: 200 RF: 3 blood sugar diagnostic strip .ROUTE .MEDSUPPLY Qty: 200 RF: 3 loperamide 2 mg Tablet 2 mg PO TID PRN PRNRF: 0 lovastatin 10 mg tablet 10 mg PO HS RF: 0 pantoprazole 40 mg tablet,delayed release (DR/EC) 40 mg PO HS RF: 0 oxybutynin chloride 5 mg tablet extended release 24hr 5 mg PO HS RF: 0 lisinopril 5 mg tablet 5 mg PO HS RF: 0 Lantus Solostar U-100 Insulin 100 unit/mL (3 mL) insulin pen 38 unit Sub-Q HS RF: 0 Discharge Instructions Instructions: Transient Global Amnesia (GEN) Additional Instructions: Return to the hospital with any more neurological deficits, fever, bleeding, chest pain, or shortness of breath. Follow up with Dr Crews (neurology) as well as your PCP. Take your blood pressures daily and keep a log. Referrals: Jessy Crews MD [ [facility] STAFF PHYSICIAN] - Activity:: Activity as Tolerated Equipment/Supplies:: No Equipment Needed Diet:: heart healthy diabetic Discharge Orders Discharge Orders: Discharge Order (Routine); Ordered 08/17/18 Ordered By: Jodi Perez Exam Narrative Exam Narrative: General: elderly female, A&Ox3, NAD, no focal neurological deficits HEENT: EOMI, MMM Cardiovascular: RRR, slight VALE Lungs: CTAB Gastrointestinal: abdomen is soft, nontender, nondistended Extremities: no e/c/c BLE's, 2+ pedal pulses B, 5/5 strenght; R knee incision healing well, slightly warm to touch DS: Data Vitals/I&O Vitals and I&O: Vital Signs Temperature 36.3 C L 08/17/18 11:51 Temperature Source Tympanic 08/17/18 11:51 Pulse 75 08/17/18 11:51 Pulse Rhythm Regular 08/17/18 08:27 Respiratory Rate 19 08/17/18 11:51 Respiratory Effort Non-Labored 08/17/18 08:27 Respiratory Depth Normal 08/17/18 08:27 Respiratory Pattern Normal 08/17/18 08:27 Blood Pressure 149/80 H 08/17/18 11:51 Blood Pressure Mean 89 08/16/18 14:31 Pulse Oximetry 98 08/17/18 11:51 Oxygen Delivery Method Room Air 08/17/18 11:51 Oxygen Flow Rate 0 08/17/18 11:51 Pain Level 0 08/17/18 11:51 Intake & Output 08/16/18 08/17/18 08/17/18 23:59 11:59 23:59 Intake Total 1240 / 1240 480 / 720 240 / 720 Output Total 200 / 200 950 / 950 Balance 1040 / 1040 -470 / -230 240 / -230 Weight 72.575 kg 85 kg Intake: IV 1000 / 1000 Oral 240 / 240 480 / 720 240 / 720 Output: Urine 200 / 200 950 / 950 Other: Urine Color Yellow Pale Urine Appearance Clear Clear Voiding Methods Bedside Commode Toilet Completed studies during hospitalization [Text1]: CXR: No evidence of acute cardiopulmonary disease. CT head: No acute intracranial abnormality is demonstrated. Labs on day of discharge: Labs from last 24 hours 08/17/18 08/17/18 08/16/18 06:45 06:45 22:10 WBC 5.09 RBC 4.13 Hgb 11.6 L Hct 35.9 L MCV 86.9 MCH 28.1 MCHC 32.3 RDW 13.8 Plt Count 267 MPV 11.2 H Immature Gran % 0.2 Neutrophils % 50.7 Lymphocytes % 35.2 Monocytes % 10.6 Eosinophils % 3.1 Basophils % 0.2 Absolute Neutrophils 2.58 Absolute Lymphocytes 1.79 Absolute Monocytes 0.54 Absolute Eosinophils 0.16 Absolute Basophils 0.01 Sodium 144 Potassium 4.8 Chloride 107 Carbon Dioxide 25.1 Anion Gap 11.9 H BUN 12 D Creatinine 0.83 Estimated GFR/1.73 m2 >= 60.00 Glucose 83 D Calcium 9.0 Magnesium 2.1 Troponin I < 0.05 < 0.05 Triglycerides 128 Total Cholesterol 160 LDL Cholesterol, Calc 93 HDL Cholesterol 42 [facility] Medical History Heart murmur (Acute) History of rheumatic fever (Acute) Tendonitis of left rotator cuff (Acute) COPD (chronic obstructive pulmonary disease) Rectal bleed (Acute) Colitis (Acute) JEMIMA (acute kidney injury) (Acute) Primary osteoarthritis of right knee (Chronic) Urinary incontinence (Acute 06/05/14) Tinnitus of both ears (Acute 09/26/14) Syncope (Acute 05/15/14) Skin lesion of left ear (Acute 10/31/15) Sensorineural hearing loss, bilateral (Acute 09/13/13) Sciatica (Acute 02/19/11) Primary osteoarthritis involving multiple joints (Acute 10/30/14) Positive cardiac stress test (Acute 06/30/17) Osteopenia (Acute 02/19/11) Hyperlipidemia (Acute 02/19/11) Gastroesophageal reflux disease (Acute 02/19/11) Gastritis, chronic (Acute 12/13/16) Fibromyalgia (Acute 12/18/14) Essential hypertension (Chronic 07/27/12) Edema (Acute 09/05/15) Diverticulitis of colon (Acute 02/19/11) Diabetic neuropathy (Chronic 01/24/14) Diabetes mellitus with neuropathy (Chronic) Atherosclerosis of [place] coronary artery of [place] heart with angina pectoris (Acute) Angina at rest (Acute 02/19/11) CAD (coronary artery disease) (Chronic) Old myocardial infarction (Chronic) GERD (gastroesophageal reflux disease) (Chronic) Type 2 diabetes mellitus (Chronic) Diabetic neuropathy (Chronic) H/O diverticulitis of colon (Chronic) Hypertension (Chronic) Hearing loss of both ears (Chronic) Tinnitus (Chronic) Osteoporosis (Chronic) Sciatica (Chronic) Chest pain (Acute 04/28/14) Syncope (Acute 04/28/14) Chronic kidney disease, stage III (moderate) (Chronic) Surgical History S/P right knee arthroscopy (Acute) Extraction of cataract Colonoscopy - MAC (12/13/16) Coronary Stent (07/12/17) EGD - MAC (12/13/16) Tonsillectomy Postsurgical percutaneous transluminal coronary angioplasty status (Chronic) Status post implantation of urinary electronic stimulator device (Chronic) Family History Father Heart disease Sister Stomach cancer Mother No problems noted. 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
[2018-08-17 15:44] VITALS: BP 173/91; PULSE 73; RESP 19; TEMP 36.3; O2SAT 97
--- NOTE | 2018-08-21 13:50 | PDOC.EEG ---
EEG: [facility] Department of Neurology INPATIENT EEG REPORT Date of Recordin08/17/18 Interpreting Physician: Dr. Jessy Crews Reason for study: Ms. Quiroz is an 82 year-old woman admitted with altered mental status. Current Medications: Home Medications Medication Instructions Recorded Confirmed Type blood-glucose meter [OneTouch #1 kit 08/15/15 08/10/18 History Ultra2] nitroglycerin [Nitrostat] 0.4 mg SUBLINGUAL Q5 MIN PRN X3 08/29/17 08/16/18 History PRN #1 bottle nortriptyline 10 mg capsule 10 mg PO HS #90 cap 02/13/18 08/16/18 Rx albuterol sulfate HFA 90 1 - 2 puff INHALATION Q4H PRN #1 03/28/18 08/16/18 Rx mcg/actuation aerosol inhaler inhaler ranitidine 150 mg tablet 150 mg PO BID #180 tab-cap 05/29/18 08/16/18 Rx aspirin 81 mg tablet,delayed 81 mg PO HS 06/22/18 08/16/18 History release metoprolol tartrate 25 mg tablet 25 mg PO BID #180 tab 06/22/18 08/16/18 Rx pregabalin 100 mg capsule 100 mg PO BID #60 cap 06/22/18 08/16/18 Rx lancets #200 each 08/10/18 08/10/18 Rx pen needle, diabetic 32 gauge x #200 each 08/10/18 08/10/18 Rx 5/32 Lantus Solostar U-100 Insulin 38 unit SUB-Q HS 08/16/18 08/16/18 History blood sugar diagnostic strips #200 each 08/16/18 Rx lisinopril 5 mg PO HS 08/16/18 08/16/18 History loperamide 2 mg PO TID PRN PRN 08/16/18 08/16/18 History lovastatin 10 mg PO HS 08/16/18 08/16/18 History oxybutynin chloride 5 mg PO HS 08/16/18 History pantoprazole 40 mg PO HS 08/16/18 08/16/18 History METHODS: A 21 channel digitized electroencephalogram was performed in the [facility] Med/Surg Floor or ICU. The 10/20 international system of electrode placement was used and bipolar and referential electrode montages were recorded. In addition to EEG the patient was monitored for EKG and lateral/vertical eye movements. Activation procedures of photic stimulation and hyperventilation were performed if applicable. Video was used during activation procedures and during events where applicable. The duration of the recording was 30 minutes. DESCRIPTION OF EEG: The patient was noted to be awake, drowsy, and asleep during the recording. During maximal wakefulness a 9-Hz posterior background rhythm was present which was well-modulated, symmetrical, reactive to eye opening, and of moderate voltage. With eye opening the background activity changed to a low voltage mixture of alpha, beta, and occasional theta range frequencies. Faster frequencies were present in the bilateral anterior head regions. There was a normal anterior-posterior voltage gradient. During drowsiness, there was attenuation of the posterior dominant background rhythm and vertex waves. Stage II sleep was present with symmetrical sleep spindles, K-complexes, and vertex waves. There were frequent, bilaterally independent, moderate-amplitude temporal sharp-waves which were not epileptic. Activating Procedures: Photic stimulation was performed which produced a symmetrical posterior driving response at various flash frequencies. Hyperventilation was performed with moderate effort and produced mild physiological slowing of the background. EKG: EKG revealed normal sinus rhythm. INTERPRETATION: This EEG is normal during the awake and sleep states as well as during photic stimulation and hyperventilation. PRIOR EEG: none CLINICAL CORRELATION: No focal regions of cerebral dysfunction or epileptiform activity was present. Epilepsy remains a clinical diagnosis and a normal EEG does not rule out epilepsy. Clinical correlation is advised. Jessy Crews MD
== END 2018-08-17 16:32 | disposition home or self-care (01) ==
LOC: ER 14:57 → MS 15:51
PROVIDERS: Admitting Provider Internal Medicine; Emergency Provider Emergency Medicine; PCP Nurse Practitioner; Visit Provider Internal Medicine
DX: T42.6X6A Underdosing of other antiepileptic and sedative-hypnotic drugs, initial encounter (principal); T50.906A Underdosing of unspecified drugs, medicaments and biological substances, initial encounter; G45.4 Transient global amnesia; R11.10 Vomiting, unspecified; E86.0 Dehydration; Z91.138 Patient's unintentional underdosing of medication regimen for other reason; E83.42 Hypomagnesemia; I10 Essential (primary) hypertension; M79.7 Fibromyalgia; K21.9 Gastro-esophageal reflux disease without esophagitis; E11.42 Type 2 diabetes mellitus with diabetic polyneuropathy; Z79.4 Long term (current) use of insulin
CPT/HCPCS: 36415; 80048; 80053; 80061; 83721; 93005; 95819; 96360; 96361; 99217; 99223; 99285; 70450; 71046; 80320; 81003; 83735; 84443; 84484; 85025; 93010; 99220; G0378

== ENCOUNTER → 2018-08-17 13:10 | Outpatient (BNVA) | payer MEDICARE, SELFPAY | PROVIDERS: Visit Provider Psychiatry & Neurology Neurology | DX: R69 Illness, unspecified (principal) ==

== ENCOUNTER → 2018-09-21 09:04 | Outpatient (BNVA) | payer MEDICARE, SELFPAY | PROVIDERS: Referring Provider Nurse Practitioner; Visit Provider Orthopaedic Surgery | DX: Z47.1 Aftercare following joint replacement surgery (principal); Z96.651 Presence of right artificial knee joint ==

== ENCOUNTER → 2018-10-04 12:37 | Outpatient (BNVA) | payer MEDICARE, SELFPAY | PROVIDERS: Referring Provider Nurse Practitioner; Visit Provider Psychiatry & Neurology Neurology | DX: R41.0 Disorientation, unspecified (principal); I12.9 Hypertensive chronic kidney disease with stage 1 through stage 4 chronic kidney disease, or unspecified chronic kidney disease; E11.42 Type 2 diabetes mellitus with diabetic polyneuropathy; E11.22 Type 2 diabetes mellitus with diabetic chronic kidney disease; N18.3 Chronic kidney disease, stage 3 (moderate); Z79.4 Long term (current) use of insulin | CPT/HCPCS: 99214 ==

== ENCOUNTER → 2018-11-01 09:12 | Outpatient (BNVA) | payer MEDICARE, SELFPAY | PROVIDERS: Visit Provider Orthopaedic Surgery | DX: Z47.1 Aftercare following joint replacement surgery (principal); Z96.651 Presence of right artificial knee joint | CPT/HCPCS: 99213 ==

== ENCOUNTER → 2018-12-12 09:57 | Outpatient (BNVA) | payer MEDICARE, SELFPAY | PROVIDERS: PCP Nurse Practitioner; Referring Provider Nurse Practitioner; Visit Provider Orthopaedic Surgery | DX: Z47.1 Aftercare following joint replacement surgery (principal); Z96.651 Presence of right artificial knee joint; I12.0 Hypertensive chronic kidney disease with stage 5 chronic kidney disease or end stage renal disease; N18.3 Chronic kidney disease, stage 3 (moderate); E11.22 Type 2 diabetes mellitus with diabetic chronic kidney disease; E11.42 Type 2 diabetes mellitus with diabetic polyneuropathy; J44.9 Chronic obstructive pulmonary disease, unspecified; Z87.891 Personal history of nicotine dependence; M25.561 Pain in right knee | CPT/HCPCS: 99213 ==

== ENCOUNTER 2019-06-26 00:42 | Outpatient (CLI) | payer MEDICARE, SELFPAY ==
--- NOTE | 2019-06-26 07:00 | DI.RAD_ITS ---
EXAM: XR SHOULDER LT COMPLETE 2+V CLINICAL HISTORY: L AC pain. needed for ortho referral, arthritis, lt ac joint, m19.012 TECHNIQUE: COMPARISON: No exams were available for comparison FINDINGS: Five views were obtained. There is moderate hypertrophic degenerative change at the acromioclavicula r joint with an apparent inferior acromial osteophyte most clearly seen on Y-view. Mild osteophyte f ormation also noted on the glenoid and the greater tuberosity and inferior articular margin of the hu merus. Cartilaginous joint space of the glenohumeral joint may be slightly thinned. IMPRESSION: Degenerative change, inferior acromial spur may impinge the supraspinatus mechanism.
== END 2019-06-26 01:02 ==
PROVIDERS: PCP Nurse Practitioner; Visit Provider Family Medicine
DX: M25.512 Pain in left shoulder (principal); M19.012 Primary osteoarthritis, left shoulder; M75.82 Other shoulder lesions, left shoulder
CPT/HCPCS: 73030

== ENCOUNTER → 2019-07-03 08:56 | Outpatient (BNVA) | payer MEDICARE, SELFPAY | PROVIDERS: PCP Nurse Practitioner; Visit Provider Orthopaedic Surgery | DX: M24.812 Other specific joint derangements of left shoulder, not elsewhere classified (principal); Z96.652 Presence of left artificial knee joint; I10 Essential (primary) hypertension; E11.9 Type 2 diabetes mellitus without complications | CPT/HCPCS: 20610; 99214; J1040 ==

== ENCOUNTER 2019-07-19 03:31 | Outpatient (CLI) | payer MEDICARE, SELFPAY ==
[2019-07-19 12:31] LABS: HCT 38.2 % (36.0-46.0); HGB 12.8 g/dL (12.0-15.5); Mean Corp. HGB Concentration 33.5 g/dL (32.0-36.0); Mean Corpuscular Hemoglobin 28.8 pg (27.0-33.0); Mean Platelet Volume 10.4 fL (8.0-11.0); Platelet Count 187 x1000/uL (130-400); RBC 4.44 m/cumm (4.00-5.20); RBC Distribution Width 13.8 % (11.7-14.6); White Blood Cell Count 6.91 k/cumm (4.4-10.8)
[2019-07-19 12:56] LABS: Hemoglobin A1C 9.4 % (3.8-5.6)
[2019-07-19 13:07] LABS: ALT 34 U/L (14-59); AST 22 U/L (15-37); Albumin 3.4 g/dL (3.4-5.0); Alkaline Phosphatase 126 U/L (46-116); Anion Gap 6.7 mmol/L (3-11); BUN 15 mg/dL (7-18); Bilirubin, Total 0.9 mg/dL (0.2-1.0); CO2 27.3 mmol/L (21.0-32.0); CREATININE 1.23 mg/dL (0.55-1.02); Calculated LDL 79 mg/dL (<100); Chloride 104 mmol/L (98-107); Cholesterol 155 mg/dL (<200); Glucose 134 mg/dL (74-106); HDL Cholesterol 49 mg/dL (40-60); Potassium 4.8 mmol/L (3.5-5.1); Sodium 138 mmol/L (136-145); Total Protein 6.9 g/dL (6.4-8.2); Triglyceride 135 mg/dL (<150)
== END 2019-07-19 03:51 ==
PROVIDERS: PCP Nurse Practitioner; Visit Provider Nurse Practitioner
DX: E11.9 Type 2 diabetes mellitus without complications (principal); I25.10 Atherosclerotic heart disease of native coronary artery without angina pectoris; E66.9 Obesity, unspecified
CPT/HCPCS: 36415; 80053; 80061; 85027; 83036

== ENCOUNTER → 2019-08-14 08:59 | Outpatient (BNVA) | payer MEDICARE, SELFPAY | PROVIDERS: PCP Nurse Practitioner; Referring Provider Nurse Practitioner; Visit Provider Orthopaedic Surgery | DX: M24.812 Other specific joint derangements of left shoulder, not elsewhere classified (principal); Z98.890 Other specified postprocedural states; E11.22 Type 2 diabetes mellitus with diabetic chronic kidney disease; E11.42 Type 2 diabetes mellitus with diabetic polyneuropathy; N18.3 Chronic kidney disease, stage 3 (moderate); I12.9 Hypertensive chronic kidney disease with stage 1 through stage 4 chronic kidney disease, or unspecified chronic kidney disease | CPT/HCPCS: 99213 ==

== ENCOUNTER → 2019-12-11 09:43 | Outpatient (BNVA) | payer MEDICARE, SELFPAY | PROVIDERS: PCP Nurse Practitioner; Referring Provider Nurse Practitioner; Visit Provider Orthopaedic Surgery | DX: R20.0 Anesthesia of skin (principal); E11.42 Type 2 diabetes mellitus with diabetic polyneuropathy; J44.9 Chronic obstructive pulmonary disease, unspecified; I10 Essential (primary) hypertension; Z79.4 Long term (current) use of insulin | CPT/HCPCS: 99214 ==

== ENCOUNTER → 2019-12-17 14:03 | Outpatient (BNVA) | payer MEDICARE, SELFPAY | PROVIDERS: PCP Nurse Practitioner; Referring Provider Orthopaedic Surgery; Visit Provider Nurse Practitioner Adult Health | DX: G56.01 Carpal tunnel syndrome, right upper limb (principal); E11.42 Type 2 diabetes mellitus with diabetic polyneuropathy; E11.22 Type 2 diabetes mellitus with diabetic chronic kidney disease; J44.9 Chronic obstructive pulmonary disease, unspecified; I10 Essential (primary) hypertension | CPT/HCPCS: 95908; 99203; 99214 ==

== ENCOUNTER 2020-01-21 03:37 | Outpatient (CLI) | payer MEDICARE, SELFPAY ==
--- NOTE | 2020-01-21 11:00 | NS.NUTBLAN_ITS ---
ASSESSMENT: Sonia presents with consult for CGM set up, placement and instructions for use. She is DM T2 w/ hx hyperglycemia. Noted: Documented hx CKD3 and CAD,. She was able to give a verbal food recall for previous day and stated that she had had no breakfast prior to this appointment. She stated that she does not enjoy eating. No issues w/ chewing or swallowing or unintended weight loss. Her report on hydration revealed inadequate fluid intake. Sonia reports that she uses her glucometer and her is taking 30u basal insulin BID. Recent A1c ( 12/23) was 7.7. She has allergy to Metformin which resulted in GI problems and then it was dc'd. She arrived at this appointment with her CGM motivated to learn how to use it. INTERVENTION: Educated Sonia on the [employer] Saurabh 2 CGM device with alarm for hypoglycemia. Reviewed placement procedure and provided literature on same. She was able to successfully apply the device, set the alrms for 70-180 mg/dl. Explained the use of interstitial fluid by this CGM rather than plasma to track BG. We agreed that she will come back on the ( 02/03 @ 1100) day to replace the sensor and analyze the time in range, daily avg glucose, and glucose variability in relation to her activities such as eating and insulin use. Monitor and Eval: Noted: Spoke with Sonia via phone call and set up Saurabh View remote monitoring on 01/31 to prepare for next appointment to review data collection and other advantages of the CGM. Time Spent face to Face: 1Hour/4 units
== END 2020-01-21 03:57 ==
PROVIDERS: PCP Nurse Practitioner; Visit Provider Dietitian, Registered
DX: Z11.9 Encounter for screening for infectious and parasitic diseases, unspecified (principal); Z79.4 Long term (current) use of insulin; N18.30 Chronic kidney disease, stage 3 unspecified; Z71.3 Dietary counseling and surveillance
CPT/HCPCS: 97802

== ENCOUNTER → 2020-01-31 08:49 | Outpatient (BNVA) | payer MEDICARE, SELFPAY | PROVIDERS: PCP Nurse Practitioner; Referring Provider Nurse Practitioner; Visit Provider Student in an Organized Health Care Education/Training Program | DX: G56.01 Carpal tunnel syndrome, right upper limb (principal) | CPT/HCPCS: 99213 ==

== ENCOUNTER 2020-02-07 16:18 | Emergency (ER) | payer MEDICARE, SELFPAY ==
[2020-02-07] VITALS (47 sets, daily range): BP systolic 131–167; BP diastolic 53–75; PULSE 57–77; RESP 13–22; TEMP 36.2; O2SAT 93–100
--- NOTE | 2020-02-07 16:15 | RT.EKG_ITS ---
APPROVED REPORT Exam: Resting ECG Patient Location: E HR:68 bpm ECG Measurements Heart Rate 68 AXIS TN 177 P 29 QRSd 92 QRS -9 QT 396 T 44 QTc 423 Conclusion Pacemaker spikes or artifacts...timing non-diagnostic Sinus rhythm...normal P axis, V-rate 60- 99 I have reviewed and interpreted ECG and agree with software generated interpretation.
--- NOTE | 2020-02-07 16:30 | DI.RAD_ITS ---
EXAM: XR PORTABLE CHEST AP CLINICAL HISTORY: chest pain TECHNIQUE: 2D digital imaging was performed. COMPARISON: CR XR CHEST 2V PA LATERAL from 05/03/2018 CR XR CHEST 2V PA LATERAL from 08/16/2018 CR XR CHEST 2V PA LATERAL from 08/16/2018 CR XR SHOULDER LT COMPLETE 2+V from 06/26/2019 FINDINGS: LUNGS: Chronic fibrotic changes. No infiltrate, effusion or gross pulmonary edema. HEART: Normal size. Calcification at aortic arch. Stable pulmonary artery prominence. BONES: Degenerative changes spine and shoulders. Stable elevation right diaphragm. IMPRESSION: Chronic fibrotic changes. no acute pulmonary findings. DATA REPOSITORY: RADIATION DOSE DELIVERED:
--- NOTE | 2020-02-07 16:51 | W.ED.GENAD ---
Discharge Plan Disposition Patient Disposition: HOME Condition: Stable Discharge Details Clinical Impression: Chest pain Primary Care Provider: Savanna Guillen ED Provider: Gabo Reddy Home Meds and New Rx's Prescriptions: Continued (DME) FreeStyle Saurabh 14 Day Sensor Kit See Rx Instructions .ROUTE .MEDSUPPLY Qty: 1 RF: 0 (DME) FreeStyle Saurabh 14 Day Mathis Misc See Rx Instructions .ROUTE .MEDSUPPLY Qty: 2 RF: 12 (DME) Poise Pads Pad See Rx Instructions .ROUTE .MEDSUPPLY Qty: 312 RF: 12 nitroglycerin [Nitrostat] 0.4 mg tablet, sublingual 0.4 mg Sublingual Q5 MIN PRN X3 PRN (Reason: chest pain) Qty: 50 RF: 6 nortriptyline 10 mg capsule 10 mg PO HS Qty: 90 RF: 3 (DME) diaper,brief,adult,disposable Misc See Rx Instructions .ROUTE .MEDSUPPLY Qty: 126 RF: 12 Lantus Solostar U-100 Insulin 100 unit/mL (3 mL) insulin pen 30 unit Sub-Q BID Qty: 30 RF: 12 albuterol sulfate [ProAir HFA] 90 mcg/actuation HFA aerosol inhaler 1 - 2 puff Inhalation Q4H PRN Qty: 1 RF: 12 (DME) pen needle, diabetic [BD Ultra-Fine Marilyn Pen Needle] 32 gauge x 5/32 needle 1 unit Miscellaneous HS Qty: 200 RF: 3 (DME) blood-glucose meter [OneTouch Ultra2 Meter] 1 EACH kit 1 ea Miscellaneous DAILY Qty: 1 RF: 0 (DME) lancets [OneTouch UltraSoft Lancets] misc 1 ea Miscellaneous DAILY Qty: 200 RF: 3 lisinopril 5 mg tablet 5 mg PO HS Qty: 90 RF: 3 pantoprazole 40 mg tablet,delayed release (DR/EC) 40 mg PO HS Qty: 90 RF: 3 metoprolol tartrate 25 mg tablet 25 mg PO BID Qty: 180 RF: 3 aspirin 81 mg tablet,delayed release (DR/EC) 81 mg PO HS Qty: 90 RF: 3 (DME) blood sugar diagnostic Strip See Dose Instructions .ROUTE .MEDSUPPLY Qty: 200 RF: 3 oxybutynin chloride 5 mg tablet extended release 24hr 5 mg PO HS Qty: 90 RF: 1 pregabalin [Lyrica] 75 mg Capsule 75 mg PO BID RF: 0 rosuvastatin [Crestor] 5 mg tablet 10 mg PO DAILY RF: 0 loperamide 2 mg Tablet 4 mg PO TID PRNRF: 0 Discharge Instructions Instructions: Chest Pain (ED) Additional Instructions: At this time you have been offered an observation admission to our facility but have declined. You did respond nicely to the medications provided. Your laboratory values did not reveal any obvious emergent process. As we discussed, please watch for new or worsening symptoms and return to the ER for any concerns. Otherwise I recommend reaching out your primary care provider on Tuesday during business hours for prompt outpatient reevaluation. Medical Decision Making This is a 84-year-old female with significant past medical history that includes CAD, angina, chronic renal disease, COPD, diabetes, hypertension, GERD, OR, cardiac stents, not currently anticoagulated. She presents via private vehicle for chest pain that began yesterday. She reports that she gets angina roughly every 2 weeks, and nitro typically takes away all of her pain. Developed right sided chest discomfort yesterday, took a nitro and pain resolved. Awoke today with right-sided chest discomfort and a epigastric, substernal, burning sensation. Denies nausea, vomiting abdominal pain, cough, shortness of breath, tearing sensation. She took a single nitro and reports the pain went down minimally but not resolved, decided to come to the ER. She is otherwise asymptomatic. Denies recent illness or trauma. We did clarify her CODE STATUS, she is a DNR-DNI. Initial differential includes not excluded to ACS, angina, unstable angina, GERD, costochondritis, bronchitis, pneumonia, etc. Based upon her presentation, extremely low suspicion for pneumothorax, PE, aortic dissection, etc. Patient already took a baby aspirin today. Will give 3 additional baby aspirin, trial 2 more sublingual nitros, initiate a cardiac work-up, and reassess. Patient reports that her pain went from a 6 or 7 down to a 4 after the first nitro. She reports that her right-sided chest pain resolved completely after the second nitro. The burning sensation every epigastric region remains. She was then given a GI cocktail. Upon reevaluation she was sleeping, wakes easily to verbal stimuli, reports that she is pain-free. Initial laboratory values do not reveal any obvious emergent process. White blood cell count 7.37 hemoglobin 11.6 hematocrit 35.2 platelet count 166. INR 1.1. Electrolytes unremarkable. Creatinine 1.28 with a GFR of 39.82. Magnesium 1.7. Troponin less than 0.05. Patient has had a low magnesium in the past. 1.7 appears to be near her baseline. Creatinine and GFR appear near baseline as well. Chest x-ray read by radiology as pulmonary vascular congestion suspected without other acute cardiopulmonary process. Clinically patient does not appear to be in CHF. Given her presentation, x-ray findings, will add on a BNP. BNP in normal range at 118 Patient remained hemodynamically stable under my care. Initial evaluation does not reveal any obvious emergent process, she reports that both the right sided chest pain and the epigastric burning has resolved completely with therapy. We discussed our options. I explained to her that given her age, presentation, comorbidities, I felt as though admission to our facility for a cardiac observation and rule out was perfectly reasonable. Patient is a DNR-DNI, reports that she is asymptomatic at this time, and would like to go home if at all possible. She does understand that observation admission was offered however she is declining which I believe in this situation is perfectly reasonable. It is [facility] and she would prefer to be home for [place]. She lives at home with a roommate and does have a ride home. She is agreeable to awaiting a repeat troponin and EKG. Repeat EKG performed at 1941. Please see official report by Dr. Cantrell. Sinus bradycardia, ventricular rate of 59. No STEMI. No significant changes when compared to initial EKG. Repeat troponin remains less than 0.05. Discussed findings with patient. She remains asymptomatic and continues to request to go home. She was able to ambulate throughout the ER without difficulty. Once again, she does understand that observation admission was offered however she declines. I again believe this to be reasonable plan however she was encouraged to return to the ER for new or worsening symptoms, otherwise recheck her primary care provider during business hours. She has remained hemodynamically stable while under my care. Medical Records Medical records reviewed: Yes I reviewed the patient's medical records. Imaging Data Radiologic Study: Attestation: I personally reviewed and interpreted this imaging study as follows: Imaging: X-Ray Radiologist's impression: Pulmonary vascular congestion suspected without other acute cardiopulmonary process ECG Data Attestation: I personally reviewed and interpreted this ECG (s) as follows: Interpretation: Please see official report by Dr. Cantrell. Sinus rhythm, ventricular of 68. No STEMI. HPI General Mode of arrival: ambulatory. Date/Time Provider Initiated Documentation: 02/07/20 16:21. Limitations to Documentation: no limitations. Information obtained by: patient. HPI Narrative: This is an 84-year-old female with past medical history that includes angina, CAD, chronic kidney disease, COPD, diabetes, hypertension, fibromyalgia, GERD, hyperlipidemia, OR with coronary stent placed in 2018. We clarified her CODE STATUS, she is a DNR-DNI. She is presenting to the ER today reporting chest pain and pressure. She states that with her angina she does get chest pain at least every 2 weeks, typically takes nitro and the pain goes away. She states that she developed some right sided chest pain yesterday, 5 out of 10, and took a nitro. Pain resolved overnight. Upon awakening this morning she reports having right-sided chest discomfort 6 of 10, and a substernal-epigastric burning. She states that she took her nitro, pain improved but is not resolved. Only took 1 nitro and then decided to come to the ER. She denies recent illness or trauma. She denies headache, visual changes, neck pain, shortness of breath, cough, abdominal pain, nausea, vomiting, back pain, dysuria, hematuria, diarrhea, numbness, tingling, weakness. She states that the right side is chest pain feels like her typical angina however the substernal-epigastric burning feels a little different. She does admit that it is very dull in nature. She denies any tearing sensation. Patient states that she used to be on Plavix but was taken off. Does not recall exactly when this occurred. Upon reviewing her past medical history it does appear as though she has a history of a GI bleed. Related Data Home Medications Medication Instructions Recorded Confirmed blood-glucose meter [OneTouch #1 kit 08/15/15 01/31/20 Ultra2 Meter] lancets #200 each 08/10/18 01/31/20 pen needle, diabetic 32 gauge x #200 each 06/22/19 01/31/20 lisinopril 5 mg tablet 5 mg PO HS #90 tab 07/02/19 02/07/20 pantoprazole 40 mg tablet,delayed 40 mg PO HS #90 tab 07/02/19 02/07/20 release metoprolol tartrate 25 mg tablet 25 mg PO BID #180 tab 07/16/19 02/07/20 albuterol sulfate 90 mcg/actuation 1 - 2 puff INHALATION Q4H PRN #1 07/23/19 02/07/20 aerosol inhaler inhaler insulin glargine 100 unit/mL (3 30 unit SUB-Q BID #30 ml 07/23/19 02/07/20 mL) subcutaneous pen aspirin 81 mg tablet,delayed 81 mg PO HS #90 tab 08/21/19 02/07/20 release blood sugar diagnostic #200 each 08/21/19 01/31/20 oxybutynin chloride 5 mg 5 mg PO HS #90 tab 11/02/19 02/07/20 tablet,extended release 24 hr diaper,brief,adult,disposable #126 each 12/24/19 01/31/20 flash glucose scanning reader #2 ea 12/24/19 01/31/20 flash glucose sensor #1 ea 12/24/19 01/31/20 incontinence pad, liner, disp #312 each 12/24/19 01/31/20 nitroglycerin 0.4 mg sublingual 0.4 mg SUBLINGUAL Q5 MIN PRN X3 12/24/19 02/07/20 tablet PRN #50 tab nortriptyline 10 mg capsule 10 mg PO HS #90 cap 12/24/19 02/07/20 loperamide 4 mg PO TID PRN 02/07/20 02/07/20 pregabalin [Lyrica] 75 mg PO BID 02/07/20 02/07/20 rosuvastatin [Crestor] 10 mg PO DAILY 02/07/20 02/07/20 Previous Rx's Medication Instructions Recorded lancets #200 each 08/10/18 pen needle, diabetic 32 gauge x #200 each 06/22/19 lisinopril 5 mg tablet 5 mg PO HS #90 tab 07/02/19 pantoprazole 40 mg tablet,delayed 40 mg PO HS #90 tab 07/02/19 release metoprolol tartrate 25 mg tablet 25 mg PO BID #180 tab 07/16/19 albuterol sulfate 90 mcg/actuation 1 - 2 puff INHALATION Q4H PRN #1 07/23/19 aerosol inhaler inhaler insulin glargine 100 unit/mL (3 30 unit SUB-Q BID #30 ml 07/23/19 mL) subcutaneous pen aspirin 81 mg tablet,delayed 81 mg PO HS #90 tab 08/21/19 release blood sugar diagnostic #200 each 08/21/19 oxybutynin chloride 5 mg 5 mg PO HS #90 tab 11/02/19 tablet,extended release 24 hr diaper,brief,adult,disposable #126 each 12/24/19 flash glucose scanning reader #2 ea 12/24/19 flash glucose sensor #1 ea 12/24/19 incontinence pad, liner, disp #312 each 12/24/19 nitroglycerin 0.4 mg sublingual 0.4 mg SUBLINGUAL Q5 MIN PRN X3 12/24/19 tablet PRN #50 tab nortriptyline 10 mg capsule 10 mg PO HS #90 cap 12/24/19 Allergies Allergy/AdvReac Type Severity Reaction Status Date / Time Penicillins Allergy Severe skin rash Verified 02/07/20 16:34 atorvastatin AdvReac Intermediate muscle Verified 02/07/20 16:34 aches metformin AdvReac Intermediate Diarrhea Verified 02/07/20 16:34 General Stated Complaint: Chest Pain RAFAELA: 2 Review of Systems Constitutional Constitutional: Denies fatigue, Denies fever(s), Denies headache(s) and Denies weakness Eyes Eyes: Denies change in vision ENT Ears, Nose, Mouth, and Throat: Denies headache(s) and Denies neck pain Cardiovascular Cardiovascular: Reports chest pain, Denies irregular heart rhythm and Denies dyspnea Respiratory Respiratory: Denies cough and Denies dyspnea Gastrointestinal Gastrointestinal: Denies abdominal pain, Denies constipation, Denies diarrhea, Denies nausea and Denies vomiting Genitourinary Genitourinary: Denies dysuria Musculoskeletal Musculoskeletal: Denies back pain, Denies neck pain, Denies numbness and Denies tingling Integumentary/Breasts Skin/Breast: Denies rash Neurologic Neurologic: Denies headache(s), Denies numbness, Denies tingling and Denies weakness Endocrine Endocrine: Denies fatigue Hematologic/Lymphatic Hematologic/Lymphatic: Denies easy bleeding and Denies easy bruising [facility] Medical History JEMIMA (acute kidney injury) Angina at rest (02/19/11) very rare, follow with Dr. Fiore Atherosclerosis of kiana coronary artery of kiana heart with angina pectoris UNSTABLE ANGINA, CATH 01/2011 JOHN to OM1 EF 65%. MPI 06/10/11 no ischemia, sm septal defect, nl EF CAD (coronary artery disease) Chest pain (04/28/14) Chronic kidney disease, stage III (moderate) Colitis resolved. COPD (chronic obstructive pulmonary disease) PT. STATES SHE DOES NOT HAVE THIS CONDITION FAR SHE KNOWS 06/26/17 Derangement of left acromioclavicular joint Diabetes mellitus with neuropathy goal 7.5; insulin begun 07/2016 Diabetic neuropathy (01/24/14) peripheral neuropathy Diverticulitis of colon (02/19/11) RECURRENT Edema (09/05/15) nl EF, proably venous Essential hypertension (07/27/12) goal 140/90 Fibromyalgia (12/18/14) Dx 12/[address] Kraft Rheum [facility] Gastritis, chronic (12/13/16) with gastric polyps. (12/13/16 report of operation). NC GERD (gastroesophageal reflux disease) H/O diverticulitis of colon Hearing loss of both ears Heart murmur History of rheumatic fever Hyperlipidemia (02/19/11) LDL baseline 127 intol ator, simv 20mg Hypertension Obesity Old myocardial infarction 1999 Osteopenia (02/19/11) T -1.6 Osteoporosis Positive cardiac stress test (06/30/17) has sched cardiac cath 07/[address] Arnett. Primary osteoarthritis involving multiple joints (10/30/14) Primary osteoarthritis of right knee Rectal bleed Sciatica (02/19/11) Sensorineural hearing loss, bilateral (09/13/13) Skin lesion of left ear (10/31/15) Syncope (05/15/14) neg w/u Tendonitis of left rotator cuff Tinnitus of both ears (09/26/14) Urinary incontinence (06/05/14) Sacral stimulator: Dr Stokes in [place] Surgical History Colonoscopy - MAC (12/13/16) Coronary Stent (07/12/17) [facility]. Kenyon Arnett MD report date . procedures: coronary angiography,left heart catherization,coronary stent insertion. EGD - MAC (12/13/16) Extraction of cataract right eye ~10years ago. left eye - unknown date Postsurgical percutaneous transluminal coronary angioplasty status 2008 S/P right knee arthroscopy Dr. Galloway >10 years Status post implantation of urinary electronic stimulator device Tonsillectomy Family History Father , OR Heart disease Sister Stomach cancer Mother , at age 102 No problems noted. 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 Working smoke detector in home: Yes Fire extinguisher in home: Yes Carbon monox detector in home: Yes Do you feel safe in your relationship?: Yes Exam Const General: cooperative, healthy appearing, comfortable and no acute distress Orientation: alert, awake and oriented x3 HENMT Head: normal to inspection, normocephalic and atraumatic Face and sinus: normal facial exam Mouth: moist mucous membranes Eyes General: appearance normal, both eyes and all related structures Alignment and Position: alignment normal Periorbital: periorbital findings normal Eyelids: eyelids normal Conjunctivae: conjunctivae normal Sclera: sclerae normal Cornea: corneas normal Pupils: PERRL EOM: EOM intact bilaterally Direct ophthalmoscopy: normal light reflex Neck Neck: normal visual inspection, full ROM, no meningeal signs, trachea midline, supple and nontender Chest Chest: normal inspection of the chest and normal palpation of entire chest wall Resp Effort & Inspection: normal respiratory effort and able to speak in complete sentences Auscultation: clear to auscultation bilaterally Cardio Rate: regular rate Rhythm: regular rhythm GI Inspection: normal to inspection Palpation: soft, not firm, no guarding, no pulsatile masses and nontender Auscultation: normal bowel sounds Back/Spine/Pelvis Back: No back tenderness Skin General skin exam: no rashes or lesions noted Neuro General: patient alert, patient awake, patient oriented x3, moves all extremities and no focal motor deficits Cognition: normal cognition Speech: speech normal Motor: muscle tone normal throughout Sensory Exam: no sensory deficits noted Extrem General: normal to inspection, full ROM, capillary refill normal, no calf tenderness and edema Laterality: bilateral (Minimal, baseline per patient) Psych Appearance: grossly normal Mental Status: mental status grossly normal Course Vital Signs Vital signs: Vital Signs Temperature 36.2 C L 02/07/20 16:26 Pulse 69 02/07/20 16:26 Respiratory Rate 17 02/07/20 16:26 Blood Pressure 153/65 H 02/07/20 16:26 Pulse Oximetry 95 02/07/20 16:26 Temperature 36.2 C L 02/07/20 16:26 Temperature Source Skin 02/07/20 16:26 Pulse 69 02/07/20 16:26 Respiratory Rate 17 02/07/20 16:26 Respiratory Effort Non-Labored 02/07/20 16:36 Blood Pressure 153/65 H 02/07/20 16:26 Blood Pressure Position Supine 02/07/20 16:26 Pulse Oximetry 95 02/07/20 16:26 Oxygen Delivery Method Room Air 02/07/20 16:26 Oxygen Flow Rate 0 02/07/20 16:26 Pain Level 7 02/07/20 16:26
[2020-02-07 16:52] LABS: Abs Immature Grans 0.02 10^3/uL (0.0-0.06); Absolute Basophil Count 0.04 10^3/uL (0.0-0.2); Absolute Eosinophil Count 0.22 10^3/uL (0.0-0.7); Absolute Lymphocyte Count 2.23 10^3/uL (1.2-3.4); Absolute Monocyte Count 0.66 10^3/uL (0.1-0.8); Basophils % 0.5; HCT 35.2 % (36.0-46.0); HGB 11.6 g/dL (11.2-15.7); Immature Grans % 0.3; Lymphocytes % 30.3; MCH 28.5 pg (27.0-33.0); MCV 86.5 fL (80-95); MPV 10.9 fL (8.0-11.0); Neutrophils % 56.9; Nucleated RBC 0 %; Platelet Count 166 10^3/uL (130-400); RBC 4.07 10^6/uL (3.93-5.22); RDW 13.8 % (11.7-14.6); RDW-SD 43.3 fL; WBC 7.37 10^3/uL (4.4-10.8)
[2020-02-07] MEDS: Aspirin 81 MG CHEW 243 MG CH (16:57)
[2020-02-07] MEDS: nitroGLYcerin 0.4 MG TAB SL ×2 (16:59→17:25)
--- NOTE | 2020-02-07 17:50 | DI.VRAD_ITS ---
PROCEDURE INFORMATION: Exam: XR Chest, 1 View Exam date and time: 02/07/2020 5:42 PM Age: 84 years old Clinical indication: Chest pain TECHNIQUE: Imaging protocol: XR of the chest Views: 1 view. COMPARISON: CR XR CHEST 2V PA LATERAL 08/16/2018 12:06 PM FINDINGS: Lungs: No convincing consolidation. Pulmonary vascular prominence. Pleural space: no pneumothorax. Heart/Mediastinum: Similar/stable cardiomediastinal silhouette. Diaphragm: Similar elevation right hemidiaphragm. Bones/joints: No acute displaced fractures. IMPRESSION: Pulmonary vascular congestion suspected without other acute cardiopulmonary process. Dictated and Authenticated by: Fernando Serrato MD. Ordering:DARREN Ayon MD
[2020-02-07 18:04] LABS: Albumin 3.2 g/dL (3.4-5.0); Alkaline Phosphatase 114 U/L (46-116); BUN 13 mg/dL (7-18); Bilirubin, Total 0.7 mg/dL (0.2-1.0); CREATININE 1.28 mg/dL (0.55-1.02); Calcium 8.8 mg/dL (8.5-10.1); Chloride 105 mmol/L (98-107); Estimated GFR 39.82 (mL/min/1.73m2); Glucose 234 mg/dL (74-106); INR 1.1 (0.9-1.1); PTT Activated 23.3 sec (21.0-27.5); Potassium 3.8 mmol/L (3.5-5.1); Sodium 139 mmol/L (136-145); Total Protein 6.8 g/dL (6.4-8.2)
[2020-02-07 18:05] LABS: ALT 20 U/L (14-59); AST 17 U/L (15-37); Anion Gap 6.9 mmol/L (3-11); CO2 27.1 mmol/L (21.0-32.0); Magnesium 1.7 mg/dL (1.8-2.4); Troponin I < 0.05 ng/mL (<0.06)
[2020-02-07] MEDS: Acetaminophen 325 MG TAB 650 MG PO (18:30)
--- NOTE | 2020-02-07 19:30 | RT.EKG_ITS ---
APPROVED REPORT Exam: Resting ECG Patient Location: E HR:59 bpm ECG Measurements Heart Rate 59 AXIS ND 204 P 59 QRSd 77 QRS -9 QT 418 T 57 QTc 416 Conclusion Pacemaker spikes or artifacts...timing non-diagnostic Sinus bradycardia...rate< 60 I have reviewed and interpreted ECG and agree with software generated interpretation.
[2020-02-07 20:36] LABS: NT-proBNP 118 pg/mL (<300)
[2020-02-07 20:41] LABS: Troponin I < 0.05 ng/mL (<0.06)
== END 2020-02-07 20:58 | disposition home or self-care (01) ==
PROVIDERS: Emergency Provider Physician Assistant; PCP Nurse Practitioner
DX: R07.89 Other chest pain (principal); R12 Heartburn; I25.10 Atherosclerotic heart disease of native coronary artery without angina pectoris; E11.22 Type 2 diabetes mellitus with diabetic chronic kidney disease; I12.9 Hypertensive chronic kidney disease with stage 1 through stage 4 chronic kidney disease, or unspecified chronic kidney disease; N18.9 Chronic kidney disease, unspecified; J44.9 Chronic obstructive pulmonary disease, unspecified; Z87.891 Personal history of nicotine dependence; Z95.5 Presence of coronary angioplasty implant and graft; I25.2 Old myocardial infarction
CPT/HCPCS: 36415; 80053; 93005; 99285; 71045; 83735; 83880; 84484; 85025; 85610; 85730; 93010

== ENCOUNTER 2020-02-29 01:26 | Outpatient (CLI) | payer MEDICARE, SELFPAY ==
[2020-03-01 22:07] LABS: COVID-19 RT-PCR Result NEGATIVE (Negative)
== END 2020-02-29 01:46 ==
PROVIDERS: PCP Nurse Practitioner; Visit Provider Student in an Organized Health Care Education/Training Program
DX: Z11.52 Encounter for screening for COVID-19 (principal); Z01.818 Encounter for other preprocedural examination
CPT/HCPCS: U0003

== ENCOUNTER 2020-03-04 07:20 | Day surgery (SDC) | payer MEDICARE, SELFPAY ==
--- NOTE | 2020-03-04 07:40 | W.PM.DSUDISC ---
Documented by User: Iveth Dill 03/04/20 09:48 Discharge Plan Disposition Patient Disposition: HOME Condition: Good Discharge Details Reason For Visit: Right carpal tunnel syndrome Attending Provider: Juan David Swann Primary Care Provider: Savanna Guillen Home Meds and New Rx's Prescriptions: No Action (DME) FreeStyle Saurabh 14 Day Sensor Kit See Rx Instructions .ROUTE .MEDSUPPLY Qty: 1 RF: 0 (DME) FreeStyle Saurabh 14 Day [place] Misc See Rx Instructions .ROUTE .MEDSUPPLY Qty: 2 RF: 12 (DME) Poise Pads Pad See Rx Instructions .ROUTE .MEDSUPPLY Qty: 312 RF: 12 nitroglycerin [Nitrostat] 0.4 mg tablet, sublingual 0.4 mg Sublingual Q5 MIN PRN X3 PRN (Reason: chest pain) Qty: 50 RF: 6 nortriptyline 10 mg capsule 10 mg PO HS Qty: 90 RF: 3 (DME) diaper,brief,adult,disposable Misc See Rx Instructions .ROUTE .MEDSUPPLY Qty: 126 RF: 12 Lantus Solostar U-100 Insulin 100 unit/mL (3 mL) insulin pen 30 unit Sub-Q BID Qty: 30 RF: 12 albuterol sulfate [ProAir HFA] 90 mcg/actuation HFA aerosol inhaler 1 - 2 puff Inhalation Q4H PRN Qty: 1 RF: 12 (DME) pen needle, diabetic [BD Ultra-Fine Marilyn Pen Needle] 32 gauge x 5/32 needle 1 unit Miscellaneous HS Qty: 200 RF: 3 (DME) blood-glucose meter [OneTouch Ultra2 Meter] 1 EACH kit 1 ea Miscellaneous DAILY Qty: 1 RF: 0 (DME) lancets [OneTouch UltraSoft Lancets] misc 1 ea Miscellaneous DAILY Qty: 200 RF: 3 lisinopril 5 mg tablet 5 mg PO HS Qty: 90 RF: 3 pantoprazole 40 mg tablet,delayed release (DR/EC) 40 mg PO HS Qty: 90 RF: 3 metoprolol tartrate 25 mg tablet 25 mg PO BID Qty: 180 RF: 3 aspirin 81 mg tablet,delayed release (DR/EC) 81 mg PO HS Qty: 90 RF: 3 (DME) blood sugar diagnostic Strip See Dose Instructions .ROUTE .MEDSUPPLY Qty: 200 RF: 3 oxybutynin chloride 5 mg tablet extended release 24hr 5 mg PO HS Qty: 90 RF: 1 rosuvastatin [Crestor] 5 mg tablet 2.5 mg PO DAILY RF: 0 pregabalin [Lyrica] 75 mg Capsule 75 mg PO BID RF: 0 loperamide 2 mg Tablet 4 mg PO TID PRNRF: 0 Discharge Instructions Additional Instructions: You may take Acetaminophen and Aleve for post-operative pain control. Stand Alone Forms: Shree Keene Tunnel Release Referrals: Juan David Swann MD [ [facility] STAFF PHYSICIAN] - Activity:: Elevate Remove Dressings/Wound Care:: 72 hours Shower/Bathe:: 72 hours Diet:: As Tolerated Discharge Orders Discharge Orders: Discharge Order (Routine); Ordered 03/04/20 Ordered By: Iveth Dill DS: Diagnosis Discharge Diagnosis (1) Carpal tunnel syndrome on right: Status: Acute Documented by User: Juan David Swann MD 03/04/20 10:08 Discharge Plan Disposition Patient Disposition: HOME Condition: Good Discharge Details Reason For Visit: Right carpal tunnel syndrome Attending Provider: Juan David Swann Primary Care Provider: Savanna Guillen Meds and New Rx's Prescriptions: No Action (DME) FreeStyle Saurabh 14 Day Sensor Kit See Rx Instructions .ROUTE .MEDSUPPLY Qty: 1 RF: 0 (DME) FreeStyle Saurabh 14 Day [place] Misc See Rx Instructions .ROUTE .MEDSUPPLY Qty: 2 RF: 12 (DME) Poise Pads Pad See Rx Instructions .ROUTE .MEDSUPPLY Qty: 312 RF: 12 nitroglycerin [Nitrostat] 0.4 mg tablet, sublingual 0.4 mg Sublingual Q5 MIN PRN X3 PRN (Reason: chest pain) Qty: 50 RF: 6 nortriptyline 10 mg capsule 10 mg PO HS Qty: 90 RF: 3 (DME) diaper,brief,adult,disposable Misc See Rx Instructions .ROUTE .MEDSUPPLY Qty: 126 RF: 12 Lantus Solostar U-100 Insulin 100 unit/mL (3 mL) insulin pen 30 unit Sub-Q BID Qty: 30 RF: 12 albuterol sulfate [ProAir HFA] 90 mcg/actuation HFA aerosol inhaler 1 - 2 puff Inhalation Q4H PRN Qty: 1 RF: 12 (DME) pen needle, diabetic [BD Ultra-Fine Marilyn Pen Needle] 32 gauge x 5/32 needle 1 unit Miscellaneous HS Qty: 200 RF: 3 (DME) blood-glucose meter [VetDC Ultra2 Meter] 1 EACH kit 1 ea Miscellaneous DAILY Qty: 1 RF: 0 (DME) lancets [OneTouch UltraSoft Lancets] misc 1 ea Miscellaneous DAILY Qty: 200 RF: 3 lisinopril 5 mg tablet 5 mg PO HS Qty: 90 RF: 3 pantoprazole 40 mg tablet,delayed release (DR/EC) 40 mg PO HS Qty: 90 RF: 3 metoprolol tartrate 25 mg tablet 25 mg PO BID Qty: 180 RF: 3 aspirin 81 mg tablet,delayed release (DR/EC) 81 mg PO HS Qty: 90 RF: 3 (DME) blood sugar diagnostic Strip See Dose Instructions .ROUTE .MEDSUPPLY Qty: 200 RF: 3 oxybutynin chloride 5 mg tablet extended release 24hr 5 mg PO HS Qty: 90 RF: 1 rosuvastatin [Crestor] 5 mg tablet 2.5 mg PO DAILY RF: 0 pregabalin [Lyrica] 75 mg Capsule 75 mg PO BID RF: 0 loperamide 2 mg Tablet 4 mg PO TID PRNRF: 0 Discharge Instructions Additional Instructions: You may take Acetaminophen and Aleve for post-operative pain control. Stand Alone Forms: Shree Keene Tunnel Release Referrals: Juan David Swann MD [ [facility] STAFF PHYSICIAN] - Activity:: Elevate Remove Dressings/Wound Care:: 72 hours Shower/Bathe:: 72 hours Diet:: As Tolerated Discharge Orders Discharge Orders: Discharge Order (Routine); Ordered 03/04/20 Ordered By: Iveth Dill
[2020-03-04 07:48] VITALS: BP 125/60; PULSE 70; RESP 18; TEMP 35.8; O2SAT 94
[2020-03-04] MEDS: Lactated Ringers 1,000 ML 80 ML IV (08:24)
[2020-03-04] MEDS: ceFAZolin 2 GM/50 ML BAG IVPB (09:34)
[2020-03-04] MEDS: Sodium Bicarbonate 50 MEQ/50 ML VIAL (09:42)
[2020-03-04 10:25] VITALS: BP 109/47; PULSE 68; RESP 16; TEMP 36; O2SAT 94
[2020-03-04 11:00] VITALS: BP 102/48; PULSE 67; RESP 16; TEMP 36; O2SAT 95
[2020-03-04 12:00] VITALS: BP 110/50; PULSE 68; RESP 16; TEMP 36; O2SAT 95
--- NOTE | 2020-03-05 14:07 | W.PM.OP ---
Date of service: 03/04/20 Time of Service: 12:07 Operative Note Operative Note DATE OF PROCEDURE: 03/04/20 PRE-OP DIAGNOSIS: Right Carpal Tunnel Syndrome POST-OP DIAGNOSIS: same PROCEDURE: Right Endoscopic Carpal Tunnel Release SURGEON: Juan David Swann ANESTHESIA: MAC ESTIMATED BLOOD LOSS: 0 PATHOLOGY: none sent TOURNIQUET TIME: 6 COMPLICATIONS: None Patient was transported to: same day Patient's condition: stable Indications: I have seen Sonia in clinic for symptoms of carpal tunnel syndrome. The numbness, tingling, and pain limited function. Clinical exam findings with nerve conduction tests confirmed the diagnosis of carpal tunnel syndrome. Nonoperative measures such as bracing, time, activity modifications had been tried but disability and pain persisted. I discussed carpal tunnel release with the patient. I reviewed the risks of the procedure to include, but not limited to, bleeding, infection, pain, stiffness, incomplete release, damage to nerves or vessels, persistent numbness, recurrence. Despite these risks, the patient elected to proceed. Findings: There was tightened carpal tunnel. This was dilated and released successfully with the endoscopic with increased space within the tunnel. The antebrachial fascia was released proximally freeing the median nerve at the wrist. Procedure Description: Sonia was greeted in the preoperative holding area where the correct side was identified and marked. The consent was reviewed with the patient and signed. The history and physical was updated. All questions were answered. Sonia was taken back to the operating room. The patient was placed into the supine position on the operating room table with the right arm on an arm board. A nonsterile tourniquet was placed high onto the arm. All bony prominences were well padded. Prophylactic antibiotics in the form of Cefazolin were administered. The right arm was then prepped with Chloraprep and draped in a standard fashion with stockinette and extremity drape. A timeout to confirm correct identity, side and site, procedure, allergies, anesthesia, and medical concerns was performed. The surgical site was marked in the volar wrist creases in line with the radial border of the fourth ray. This area was anesthetized with approximately 6cc of 1% Lidocaine. The limb was then exsanguinated with an Esmarch. The skin was incised with a 15 blade, approximately 1cm. The skin only was cut and the deeper tissue was dissected bluntly with a tenotomy scissor, avoiding passing nerve and venous structures. The fascia was penetrated and opened bluntly. A two-prong skin hook was placed under this proximal fascial edge. A series of hamate finders were used to identify and dilate the carpal tunnel. Synovial elevator was used to free synovial attachments to the underside of the transverse carpal ligament. My thumb was kept in the palm to porfirio the distal extent of the carpal tunnel and correctly position the hand. The Microaire endoscope was inserted without difficulty and without resistance. Excellent visualization showed horizontally running fibers of the transverse carpal ligament (TCL). The distal extent of the TCL was visualized and the end of the scope palpated with the thumb. The blade was elevated and withdrawn from distal to proximal. The TCL was split into two flaps. The endoscope was reinserted to confirm complete release and any remnant ligament was incised. The scope was withdrawn and the proximal aspect of the carpal tunnel was grossly inspected and appeared release with the median nerve visible. The antebrachial fascia at the level of the wrist was then freed from the overlying skin and then the underlying median nerve with blunt dissection. This was transected longitudinally for about 3cm proximal to the wrist incision. The wound was then irrigated with easy flow of irrigant distally and proximally. The incision was closed with a single 4-0 Nylon suture. The wound was dressed with Xeroform, Gauze, Kerlix and Sterling. The tourniquet was deflated with the initial dressing and held with some pressure. Blood flow returned easily to all digits with capillary refill less than 2 seconds. The patient tolerated the procedure well and was returned to the Same Day Surgery area in a stable condition suffering no known complication.
== END 2020-03-04 13:40 | disposition home or self-care (01) ==
PROVIDERS: PCP Nurse Practitioner; Visit Provider Student in an Organized Health Care Education/Training Program
PROC: 01N54ZZ Release Median Nerve, Percutaneous Endoscopic Approach (ICD-10-PCS; CPT 29848; principal; 2020-03-04 09:45)
DX: G56.01 Carpal tunnel syndrome, right upper limb (principal)
CPT/HCPCS: 29848; J0690; J2250

== ENCOUNTER → 2020-03-17 10:49 | Outpatient (BNVA) | payer MEDICARE, SELFPAY | PROVIDERS: PCP Nurse Practitioner; Referring Provider Nurse Practitioner; Visit Provider Student in an Organized Health Care Education/Training Program | DX: Z47.89 Encounter for other orthopedic aftercare (principal); G56.01 Carpal tunnel syndrome, right upper limb ==

== ENCOUNTER 2020-03-26 02:59 | Outpatient (CLI) | payer MEDICARE, SELFPAY ==
[2020-03-26 09:48] LABS: HGB 12.3 g/dL (11.2-15.7); MCH 28.6 pg (27.0-33.0); MCHC 34.2 % (32.0-36.0); MCV 83.7 fL (80-95); MPV 11.1 fL (8.0-11.0); Platelet Count 153 10^3/uL (130-400); RDW 13.3 % (11.7-14.6); RDW-SD 40.7 fL; WBC 6.05 10^3/uL (4.4-10.8)
[2020-03-26 10:35] LABS: ALT 26 U/L (14-59); AST 17 U/L (15-37); Albumin 3.7 g/dL (3.4-5.0); Alkaline Phosphatase 138 U/L (46-116); Anion Gap 10.5 mmol/L (3-11); BUN 12 mg/dL (7-18); CO2 26.5 mmol/L (21.0-32.0); CREATININE 1.4 mg/dL (0.55-1.02); Calcium 8.8 mg/dL (8.5-10.1); Calculated LDL 42 mg/dL (<100); Chloride 99 mmol/L (98-107); Cholesterol 119 mg/dL (<200); Estimated GFR 35.91 (mL/min/1.73m2); Glucose 367 mg/dL (74-106); HDL Cholesterol 40 mg/dL (40-60); Potassium 4.2 mmol/L (3.5-5.1); Sodium 136 mmol/L (136-145); Total Protein 6.9 g/dL (6.4-8.2); Triglyceride 187 mg/dL (<150)
== END 2020-03-26 03:00 | disposition home or self-care (01) ==
LOC: LBO 02:59
PROVIDERS: PCP Nurse Practitioner; Visit Provider Nurse Practitioner
DX: E78.5 Hyperlipidemia, unspecified (principal); E11.40 Type 2 diabetes mellitus with diabetic neuropathy, unspecified; I25.10 Atherosclerotic heart disease of native coronary artery without angina pectoris
CPT/HCPCS: 36415; 80053; 80061; 85027

== ENCOUNTER 2020-04-02 12:56 | Outpatient (REF) | payer MEDICARE, SELFPAY ==
[2020-04-02 13:51] LABS: Bilirubin Negative (Negative); Blood Negative (Negative); Clarity Sl Cloudy (Clear); Glucose Negative (Negative); Ketones Negative (Negative); Leukocyte Esterase Moderate (Negative); Nitrite Positive (Negative); Urobilinogen 0.2 EU/dL (Up TO 0.2); pH 5.5 (5-8)
[2020-04-02 14:00] LABS: Bacteria Many HPF (Negative); C & S Indicated? C&S Done As Ordered; Casts Negative LPF (Negative); Crystals Negative HPF (Negative); Epithelial Cells Few HPF (Negative); Mucus Negative (Negative); RBC Negative HPF (0-2); WBC >50 HPF (0-5)
[2020-04-02 14:47] LABS: COMMENT (LAB VIEW ONLY) 80.97 mg/dL
== END 2020-04-02 12:57 | disposition home or self-care (01) ==
LOC: LBN 12:56
PROVIDERS: PCP Nurse Practitioner; Visit Provider Nurse Practitioner
DX: E11.43 Type 2 diabetes mellitus with diabetic autonomic (poly)neuropathy (principal); R32 Unspecified urinary incontinence; R73.9 Hyperglycemia, unspecified; Z79.4 Long term (current) use of insulin
CPT/HCPCS: 87077; 81003; 81015; 82043; 82570; 87086; 87186

== ENCOUNTER → 2020-04-14 10:26 | Outpatient (BNVA) | payer MEDICARE, SELFPAY | PROVIDERS: PCP Nurse Practitioner; Referring Provider Nurse Practitioner; Visit Provider Student in an Organized Health Care Education/Training Program | DX: Z47.89 Encounter for other orthopedic aftercare (principal); G56.01 Carpal tunnel syndrome, right upper limb; E11.22 Type 2 diabetes mellitus with diabetic chronic kidney disease; N18.9 Chronic kidney disease, unspecified; J44.9 Chronic obstructive pulmonary disease, unspecified; I12.9 Hypertensive chronic kidney disease with stage 1 through stage 4 chronic kidney disease, or unspecified chronic kidney disease ==

== ENCOUNTER 2020-04-16 12:59 | Outpatient (REF) | payer MEDICARE, SELFPAY ==
[2020-04-16 20:37] LABS: TSH (W/Ref FT4) 3.59 uIU/mL (0.36-3.74); Vitamin B12 521 pg/mL (193-986)
== END 2020-04-16 13:00 | disposition home or self-care (01) ==
LOC: LBO 12:59
PROVIDERS: PCP Nurse Practitioner; Visit Provider Nurse Practitioner
DX: R41.3 Other amnesia (principal)
CPT/HCPCS: 82607; 84443

== ENCOUNTER 2020-05-06 01:35 | Outpatient (CLI) | payer MEDICARE, SELFPAY ==
--- NOTE | 2020-05-06 07:45 | DI.CT_ITS ---
EXAM: CT HEAD WO CLINICAL HISTORY: progressive memory loss. Fell 2w ago, hit head,R41.3,W10.8XXA. TECHNIQUE: Imaging Protocol: Axial computed tomography images with coronal and sagittal reformatted images were created and reviewed COMPARISON: CT CT HEAD WO from 08/16/2018 FINDINGS: Ventricles and Extra axial spaces: Normal in size and morphology for the patient's age. Hemorrhage: None. Cerebral parenchyma: There is age-appropriate cerebral atrophy. There are areas of decreased attenua tion in the white matter most consistent with chronic microvascular ischemic disease. No acute leia torial infarct is appreciated. Midline shift: None. Brainstem/Cerebellum: Normal. Calvarium: Normal. Visualized Paranasal sinuses/Mastoids: Clear. Soft Tissues: Unremarkable. IMPRESSION: 1. No acute intracranial process. 2. Age-appropriate cerebral atrophy and small vessel ischemic disease. RADIATION DOSE DELIVERED: 650.75mGy.cm Total DLP DATA REPOSITORY: All CT scans at this facility are submitted to the National Radiology Data Registry (NRDR) Dose Index Registry (DIR) with the [employer] (ACR). RADIATION OPTIMIZATION: All CT scans at this facility use at least one of these dose optimization te chniques: automated exposure control; mA and/or kV adjustment per patient size (includes targeted exa ms where dose is matched to clinical indication); or iterative reconstruction.
== END 2020-05-06 01:55 ==
PROVIDERS: PCP Nurse Practitioner; Visit Provider Nurse Practitioner
DX: R41.3 Other amnesia (principal); W10.8XXA Fall (on) (from) other stairs and steps, initial encounter; G31.1 Senile degeneration of brain, not elsewhere classified
CPT/HCPCS: 70450

== ENCOUNTER → 2020-05-27 13:27 | Outpatient (BNVA) | payer MEDICARE, SELFPAY | PROVIDERS: PCP Nurse Practitioner; Referring Provider Nurse Practitioner; Visit Provider Nurse Practitioner Adult Health | DX: R41.3 Other amnesia (principal); E11.42 Type 2 diabetes mellitus with diabetic polyneuropathy; I12.9 Hypertensive chronic kidney disease with stage 1 through stage 4 chronic kidney disease, or unspecified chronic kidney disease; E11.22 Type 2 diabetes mellitus with diabetic chronic kidney disease; N18.9 Chronic kidney disease, unspecified | CPT/HCPCS: 99214; 99215 ==

== ENCOUNTER 2020-07-28 11:54 | Outpatient (REF) | payer MEDICARE, SELFPAY | END 2020-07-28 11:55 | disposition home or self-care (01) | LOC: LBN 11:54 | PROVIDERS: PCP Nurse Practitioner; Visit Provider Family Medicine | DX: N39.0 Urinary tract infection, site not specified (principal) | CPT/HCPCS: 87077; 87086; 87186 ==

== ENCOUNTER → 2020-08-14 09:52 | Outpatient (BNVA) | payer MEDICARE, SELFPAY | PROVIDERS: PCP Nurse Practitioner; Referring Provider Nurse Practitioner; Visit Provider Nurse Practitioner Adult Health | DX: R41.3 Other amnesia (principal); G47.33 Obstructive sleep apnea (adult) (pediatric); H91.93 Unspecified hearing loss, bilateral | CPT/HCPCS: 99214 ==

== ENCOUNTER 2020-08-15 02:24 | Outpatient (CLI) | payer MEDICARE, SELFPAY ==
[2020-08-15 13:02] LABS: Ferritin 37 ng/mL (8-252)
== END 2020-08-15 02:25 | disposition home or self-care (01) ==
LOC: LBO 02:24
PROVIDERS: PCP Nurse Practitioner; Visit Provider Nurse Practitioner
DX: M25.561 Pain in right knee (principal)
CPT/HCPCS: 36415; 82728

== ENCOUNTER 2020-09-17 13:11 | Outpatient (REF) | payer MEDICARE, SELFPAY | END 2020-09-17 13:12 | disposition home or self-care (01) | LOC: LBN 13:11 | PROVIDERS: PCP Nurse Practitioner; Visit Provider Nurse Practitioner Adult Health | DX: N30.01 Acute cystitis with hematuria (principal) | CPT/HCPCS: 87077; 87086; 87186 ==

== ENCOUNTER → 2020-11-18 09:28 | Outpatient (BNVA) | payer MEDICARE, SELFPAY | PROVIDERS: PCP Nurse Practitioner; Visit Provider Nurse Practitioner Adult Health | DX: G30.9 Alzheimer's disease, unspecified (principal); F02.80 Dementia in other diseases classified elsewhere, unspecified severity, without behavioral disturbance, psychotic disturbance, mood disturbance, and anxiety; G47.33 Obstructive sleep apnea (adult) (pediatric) | CPT/HCPCS: 99213 ==

== ENCOUNTER 2020-12-17 20:10 | Outpatient (REF) | payer MEDICARE, SELFPAY ==
--- OUTSIDE RECORDS SUMMARY | 2020-12-17 20:16 | XMS_ITS ---
:1935 Author Care Team Providers Name Role Phone JUDY ESTRELLA NP Primary Care Provider [phone] ZECHARIAH HENRIQUEZP-PC Referring Provider [phone] [facility] OTHER [phone] Allergies Code Code System Name Reaction Severity Status Onset 10567 RxNorm Atorvastatin ? ? Active ? 6800 RxNorm Metformin ? ? Active ? Penicillins ? ? Active ? Medications Name Status Start Date Stop Date ? ? albuterol sulf 90 mcg/actuation breath activated powder inhaler, sensor Active ? Not available Inhale 2 puffs every 4 hours by inhalation route. aspirin Active ? Not available 81 mg tab PO At bedtime famotidine 40 mg tablet Active ? Not avai lable Take 1 tablet every day by oral route. isosorbide dinitrate 30 mg tablet Active ? Not available Take 1 tablet every day by oral route. Lantus Solostar U-100 Insulin 100 unit/mL (3 mL) subcutaneous pe n Active ? Not available Inject 35 units twice a day by subcutaneous route before meals. loperamide 2 mg tablet Active ? Not avail able Take 4 mg 3 times a day by oral route. metoprolol tartrate 25 mg tablet Active ? Not available Take 1 tablet twice a day by oral route. Nitrostat 0.4 mg sublingual tablet Active ? Not available Place 0.4 mg as needed by sublingual route as directed. nortriptyline 10 mg capsule Active ? Not available Take 1 capsule every day by oral route at bedtime. oxybutynin chloride 5 mg tablet Active ? Not available Take 1 tablet every day by oral route at bedtime. pantoprazole 40 mg tablet,delayed release Active ? Not available Take 1 tablet every day by oral route at bedtime. pregabalin 50 mg capsule Active ? Not sergey ilable Take 1 capsule twice a day by oral route. rosuvastatin 5 mg tablet Active ? Not sergey ilable Take 1 tablet every day by oral route. zolpidem 5 mg tablet Active ? Not availab le take 1 PO night of sleep study if needed Problems Name Status Onset Date Source ? Diabetic Peripheral Neuropathy Active 06/11/2020 ? Hyperlipidemia Active 06/11/2020 ? Obesity Active 06/11/2020 ? Bilateral Hearing Loss Active 06/11/2020 ? Hypertensive Disorder Active 06/11/2020 ? Myocardial Infarction Active 06/11/2020 ? Coronary Arteriosclerosis Active 06/11/2020 ? Chronic Obstructive Lung Disease Active 06/11/2020 ? Gastroesophageal Reflux Disease Active 06/11/2020 ? Diverticulitis Active 06/11/2020 ? Chronic Kidney Disease Active 06/11/2020 ? Fibromyalgia Active 06/11/2020 ? Osteopenia Active 06/11/2020 ? Daytime Somnolence Active 06/11/2020 ? Memory Impairment Active 06/11/2020 ? Heart Murmur Active 06/11/2020 ? Snoring Active 06/11/2020 ? Gasping for Breath Active 06/11/2020 ? Acute Nontraumatic Kidney Injury Active 06/11/2020 ? Restless Legs Active 06/12/2020 ? Cataplexy Active 06/12/2020 ? Obstructive Sleep Apnea Syndrome Active ? ? Periodic Leg Movements of Sleep Active ? ? Procedures None recorded. Results Lab Results Date Name Specimen Result Interpretation Description Value Range Status Address ? 08/15/2020 Ferritin, ? No observation ? ? ? [facility] or recorded. [facility]: [address] [place] [address] Past Encounters 09/09/2020 Obstructive Sleep Apnea Syndrome; Restle ss Legs; Cataplexy Sharlene Senior TRAVEL CLERK: [address] [place] [phone], Ph. 06/12/2020 Daytime Somnolence; Restless Legs; Catap barney; Pain in Right Knee Sharlene Senior TRAVEL CLERK: [address] [place] [phone], Ph. Social History Tobacco Smoking Status Former Smoker Notes: quit ov er 50 years ago Vaccine List None recorded. Plan of Care Reminders Provider Appointments None ? ? recorded. Lab None ? ? recorded. Referral None ? ? recorded. Procedures None ? ? recorded. Surgeries None ? ? recorded. Imaging None ? ? recorded. Vitals 09/09/2020 09:30AM Office 30 Height Weight BMI Blood Pressure 162.56 cm 92.99 kg 35.2 kg/m2 134/64 mm[Hg] 06/12/2020 10:45AM New Patient 45 Height Weight BMI Blood Pressure 162.56 cm 94.26 kg 35.7 kg/m2 147/95 mm[Hg]
[2020-12-17 20:54] LABS: HCT 37.2 % (36.0-46.0); HGB 12.2 g/dL (11.2-15.7); MCH 29.8 pg (27.0-33.0); MCHC 32.8 % (32.0-36.0); MCV 90.7 fL (80-95); MPV 11.5 fL (8.0-11.0); Platelet Count 150 10^3/uL (130-400); RDW 13.2 % (11.7-14.6); RDW-SD 44.6 fL; WBC 5.75 10^3/uL (4.4-10.8)
[2020-12-17 21:04] LABS: ALT 38 U/L (14-59); AST 27 U/L (15-37); Albumin 3.3 g/dL (3.4-5.0); Alkaline Phosphatase 130 U/L (46-116); BUN 10 mg/dL (7-18); Bilirubin, Total 0.8 mg/dL (0.2-1.0); CREATININE 1.2 mg/dL (0.55-1.02); Calcium 8.6 mg/dL (8.5-10.1); Calculated LDL 65 mg/dL (<100); Chloride 104 mmol/L (98-107); Cholesterol 127 mg/dL (<200); Glucose 281 mg/dL (74-106); HDL Cholesterol 37 mg/dL (40-60); Potassium 4.1 mmol/L (3.5-5.1); Sodium 140 mmol/L (136-145); Total Protein 6.4 g/dL (6.4-8.2); Triglyceride 127 mg/dL (<150)
[2020-12-17 21:06] LABS: Hemoglobin A1C 9.2 % (<5.7)
== END 2020-12-17 20:11 | disposition home or self-care (01) ==
LOC: LBN 20:10
PROVIDERS: PCP Nurse Practitioner; Visit Provider Nurse Practitioner
DX: E11.9 Type 2 diabetes mellitus without complications (principal); I25.10 Atherosclerotic heart disease of native coronary artery without angina pectoris; G30.9 Alzheimer's disease, unspecified
CPT/HCPCS: 80053; 80061; 85027; 83036

== ENCOUNTER 2020-12-22 15:39 | Outpatient (REF) | payer MEDICARE, SELFPAY ==
--- OUTSIDE RECORDS SUMMARY | 2020-12-22 15:44 | XMS_ITS ---
:1935 Author Care Team Providers Name Role Phone JUDY ESTRELLA NP Primary Care Provider [phone] ZECHARIAH HENRQIUEZP-PC Referring Provider [phone] [facility] OTHER [phone] Allergies Code Code System Name Reaction Severity Status Onset 30876 RxNorm Atorvastatin ? ? Active ? 6806 RxNorm Metformin ? ? Active ? Penicillins [...] capsule twice a day by oral route. ropinirole 1 mg tablet Active ? Not avail able take 1 PO 2 hours prior to bedtime. rosuvastatin 5 mg tablet Active ? Not [...] ? ? ? [place] [facility] or recorded. [facility]: [address] [place] [address] Past Encounters 12/18/2020 Obstructive Sleep Apnea Syndrome; Restle ss Legs; Cataplexy Sharlene Senior OVEN STRIPPER: [address] [place] [phone], Ph. 09/09/2020 Obstructive Sleep Apnea Syndrome; Restle ss Legs; Cataplexy Sharlene Senior NP: [address] [place] [phone], Ph. 06/12/2020 Daytime Somnolence; Restless Legs; Catap barney; Pain in Right Knee Sharlene Senior OVEN STRIPPER: [address] [place] [phone], Ph. Social History Tobacco Smoking Status Former Smoker Notes: quit ov er 50 years ago Vaccine List None recorded. Plan of Care Reminders Provider Appointments None ? ? recorded. Lab None ? ? recorded. Referral None ? ? recorded. Procedures None ? ? recorded. Surgeries None ? ? recorded. Imaging None ? ? recorded. Vitals 12/18/2020 11:30AM Office 30 Height Weight BMI Blood Pressure 162.56 cm 92.31 kg 34.9 kg/m2 132/72 mm[Hg] 09/09/2020 09:30AM Office 30 Height Weight BMI Blood Pressure 162.56 cm 92.99 kg 35.2 kg/m2 134/64 mm[Hg] 06/12/2020 10:45AM New Patient 45 Height Weight BMI Blood Pressure 162.56 cm 94.26 kg 35.7 kg/m2 147/95 mm[Hg]
--- OUTSIDE RECORDS SUMMARY | 2020-12-22 15:44 | XMS_ITS | Encounter Summary ---
:1935 Author Care Team Providers Name Role Phone Savanna Guillen NP Primary Care Provider [phone] Ruthie Calabresep-PC Referring Provider [phone] [facility] OTHER [phone] Reason for Visit None recorded. Assessment and Plan 1. Obstructive sleep apnea syndr ome Mild RANDEE with an AHI of 5.3/hr . She recently started on CPAP 5-15 cm. She has good compliance and reduction in AHI. I received a notice from [facility] yesterday stating she did not meet initial compliance requirements and if she want s to continue with CPAP she will have to have another PSG to requalify. Her most recent download shows she did use the CPAP more than four hours on 73% of nights so she is clearly doing well and meeting requirements now. SHe unfortunately did not understand the initial instructions and thought she was supposed to remove the CPAP after four hours so she actually set an alarm every night to wake her up so she could remove it. I explained today that the goal is actually to use it all night long. She tolerates CPAP well and has improvement in her daytime sleepines s. SHe has significant residual sleepine ss so I am prescribing ropinirole as below. STill may consider MSLT down the road. I will see her back in three months. I provided greater than 30 minutes in e care of this patient, more than half the time was spent in [id number] counseling. ? sleep study, baseline diag nostic polysomnogram* - needs to requalify for CPAP, pls notify when available so r esults can be forwarded to [facility] so she can get another CPAP 2. Restless legs She has classic symptoms most nights, she does not feel this interferes with her falling asleep. She has some le g twitching most nights before sleep as well and PSG revealed a PLMi 53/hr and PLMai 4.6/hr. Ferritin 08/15/20 was 37 and she was supposed to start on iron and vit C but she just picked it up yesterday. She has significant residual sleepiness so I hav e recommended starting a dopamine agonist. She is agreeable so a Rx for ropinirole 1 mg is sent to her pharmacy. ? ropinirole 1 mg tablet 3. Cataplexy She describes symptoms that eleonora koehler be consistent with cataplexy to include feeling weak in the knees with strong la ughter or facial weakness when upset. She recalls this has been going on most of h er life. It is possible she has narcolepsy given her excessive daytime sleepiness w hich she describes as being present most of her life as well. She has sleep paralysi s once in a blue taveras. PSG did not reveal a short REM latency or increased REM sleep making narcolepsy less likely. Will treat RANDEE and PLMS as above and at follow-up w ill consider a MSLT following a titration for lack of symptomatic improvement. Discussion Note: None recorded.Patient educational handouts: No information available. Plan of Care Reminders Provider Appointments Office 03/25/2021 jP Senior, 1:15PM [facility] Lab None ? ? recorded. Referral None ? ? recorded. Procedures None ? ? recorded. Surgeries None ? ? recorded. Imaging None ? ? recorded. Medications Name Start Date ? ? albuterol sulf 90 mcg/actuation breath activated dariuszde r inhaler,sensor ? Inhale 2 puffs every 4 hours by inhalation route. aspirin ? 81 mg tab PO At bedtime famotidine 40 mg tablet ? Take 1 tablet every day by oral route. isosorbide dinitrate 30 mg tablet ? Take 1 tablet every day by oral route. Lantus Solostar U-100 Insulin 100 unit/mL (3 mL) subcu taneous pen ? Inject 35 units twice a day by subcutaneous route bef ore meals. loperamide 2 mg tablet ? Take 4 mg 3 times a day by oral route. metoprolol tartrate 25 mg tablet ? Take 1 tablet twice a day by oral route. Nitrostat 0.4 mg sublingual tablet ? Place 0.4 mg as needed by sublingual route as directe d. nortriptyline 10 mg capsule ? Take 1 capsule every day by oral route at bedtime. oxybutynin chloride 5 mg tablet ? Take 1 tablet every day by oral route at bedtime. pantoprazole 40 mg tablet,delayed release ? Take 1 tablet every day by oral route at bedtime. pregabalin 50 mg capsule ? Take 1 capsule twice a day by oral route. ropinirole 1 mg tablet ? take 1 PO 2 hours prior to bedtime. rosuvastatin 5 mg tablet ? Take 1 tablet every day by oral route. zolpidem 5 mg tablet ? take 1 PO night of sleep study if needed Medications Administered None recorded. Vitals Height Weight BMI Blood Pressure 5 ft 4 in 203.5 lbs 34.9 kg/m2 132/72 mm[Hg] Results Lab Results None recorded. Allergies Code Code System Name Reaction Severity Onset 83841 RxNorm Atorvastatin ? ? ? 6809 RxNorm Metformin ? ? ? Penicillins ? ? ? Problems Name Status Onset Date Source ? [...] Sleep Active ? ? Procedures None recorded. Vaccine List None recorded. Social History Tobacco Smoking Status Former Smoker Notes: quit ov er 50 years ago Hard of hearing or deaf in one or Y Note s: bilateral hearing aides both ears? What is your level of alcohol Occasional Notes: a glass of wine every consumption? so often Live alone or with others? with others Are you currently employed? N What is your level of caffeine None consumption? Are you blind or do you have Y Notes: w ears glasses difficulty seeing? What is your code status? 0 Functional Status Are you blind or do you Yes have difficulty seeing?? Past Encounters 12/18/2020 Obstructive Sleep Apnea Syndrome; Restle ss Legs; Cataplexy Sharlene Senior NP: [address] [place] [phone], Ph. History of Present Illness Note: <p>Sonia Quiroz has a visit for RANDEE and RLS follow-up.</p><div>
</div><p>Sonia was seen by me on 06/12/20. She has a medical history to include COPD, CKD, CAD (s/p MA), DM, fibromyalgia, diverticulitis, HTN, HLD, obesity, GERD, osteoporosis and memory impairment. Labs 04/16/20 B12 and TSH wnl.</p><p>She noted symptoms of excessive daytime sleepiness (ESS 24), drowsy driving, memory impairment, nocturnal gasping, nocturia, possible cataplexy and RLS most nights.</p><p>Polysomnogram was completed on </p><div>{{DATE 06/21/2020}} (BMI 35.53) . Sleep efficiency was {{80 84#}}%, AHI {{NUMBER 5.3#}}/hr, RDI {{NUMBER 6.9#}}/hr,REM AHI {{NUMBER 2.2#}}/hr, REM RDI {{NUMBER 2.2#}}/hr, supine AHI {{NUMBER 8#}}/hr, right lateral AHI {{NUMBER 3#}}/hr, left lateral AHI N/A, sp02 newton {{NUMBER 85#}}%, {{NUMBER 5.4#}} minutes were spent at a saturation <88%, arousal index {{NUMBER 17#}}/hr, PLMi {{NUMBER 53#}}/hr, PLM arousal index {{NUMBER 4.6#}}/hr. EKG showed {{NSR*}}.</div><div>Last visit I ordered CPAP 5-15cm. Ferritin 08/15/20was 37 and she was advised to start iron and vitamin C at that time.</div>&l t;div>
</div><div>Sonia tells me she has been using CPAP all along and feelsthat she has always been averaging at least four hours a night. She only does not use it when she feels nauseated like she will vomit. She says initially she would wake up and remove it after four hours because that is all she thought she was supposed to use it for. SHe actually set an alarm to removeit but says she could have easily slept with it all night. She now uses it all night because it is ahassle to wake and remove it. She has less mucous and feels better rested. She had her CPAP packed to give to use today but I explained we don't take this back it has to go to [facility]. She wasusing a Vitera and tolerated this well, she was not aware of any air leaking. The pressure felt "fine". </div><div>
</div><div>ESS today </div& gt;<div>
</div><div>COMPLIANCE DATA REVIEWED WITH PATIENT: {{DATES 11/16/20-12/15/20#}}, Used {{25 30 22#}}/30 days, average use {{5* 6}} hours {{number 51#}} minutes a night, mean pressure {{8 9 7#}}cm, 90 th percentile pressure {{9 10 10.5#}}cm, time in large air leak {{5 10 33.6#}} minutes, AHI {{1 2 1.8#}}/hour.</div>Review of Systems: ROS as noted in the HPI Review of Systems None recorded. Physical Exam ? Notes: <div>General: A&O, well groo med {{over weight obese morbidly obese normal weight thin}}.
HEAD: nor mocephalic & atraumatic.
EYES: non icteric.
LUNGS: CTA all f ields. Good air movement.
CARDIO: RRR without murmur, gallop or thrill. <b r>NEURO: A&O. Normal gait.
PSYCH: Normal mood and affect.
CUTANEOUS: no overt lesions or rashes</div>
[2020-12-24 12:28] LABS: COVID-19 RT-PCR UVMMC Result Negative (Negative)
== END 2020-12-22 15:40 | disposition home or self-care (01) ==
LOC: LBN 15:39
PROVIDERS: PCP Nurse Practitioner; Visit Provider Nurse Practitioner Family
DX: Z20.822 Contact with and (suspected) exposure to COVID-19 (principal); J06.9 Acute upper respiratory infection, unspecified
CPT/HCPCS: U0003; U0005

== ENCOUNTER 2021-02-12 11:49 | Outpatient (CLI) | payer MEDICARE, SELFPAY ==
--- NOTE | 2021-02-12 10:45 | DI.RAD_ITS ---
Exam(s) XR CHEST 2V PA LATERAL EXAM: XR CHEST 2V PA LATERAL CLINICAL HISTORY: cough, sob, R05.9, R06.02. TECHNIQUE: 2D digital imaging was performed. COMPARISON: CR XR CHEST 2V PA LATERAL from 05/03/2018 CR,XR XR PORTABLE CHEST AP from 02/07/2020 FINDINGS: Elevated right hemidiaphragm is unchanged from prior studies listed above. Heart size is normal. The mediastinum is not widened. . No infiltrates nor pleural effusions. However, there is subsegmental platelike atelectasis right lung base behind hemidiaphragm. No pleura l effusions. No pulmonary edema. No pneumothorax IMPRESSION: There is platelike subsegmental atelectasis in the right lung. Elevated right hemidiaphragm is unchanged. DATA REPOSITORY: RADIATION DOSE DELIVERED:
== END 2021-02-12 12:09 ==
PROVIDERS: PCP Nurse Practitioner; Visit Provider Nurse Practitioner
DX: R06.02 Shortness of breath (principal); R05.8 Other specified cough; J98.11 Atelectasis
CPT/HCPCS: 71046

== ENCOUNTER 2021-02-17 13:09 | Inpatient (IN) | payer MEDICARE, SELFPAY ==
[2021-02-17] VITALS (42 sets, daily range): BP systolic 104–170; BP diastolic 57–91; PULSE 71–104; RESP 17–36; TEMP 36–36.6; O2SAT 85–96
--- NOTE | 2021-02-17 13:13 | RT.EKG_ITS ---
APPROVED REPORT Exam: Resting ECG Reason for Exam: SOB Patient Location: E HR:82 bpm ECG Measurements Heart Rate 82 AXIS [place] 175 P 31 QRSd 78 QRS 0 QT 373 T 27 QTc 436 Conclusion Pacemaker spikes or artifacts...timing non-diagnostic Sinus rhythm...normal P axis, V-rate 60- 99 Consider anteroseptal infarct...Q >30mS, dimin R, V1-V2 Physician: no stemi, q waves present, unchanged
--- NOTE | 2021-02-17 13:22 | W.ED.GENAD ---
Discharge Plan Disposition Patient Disposition: [facility] INPATIENT Condition: Stable Discharge Details Clinical Impression: COPD with hypoxia, Pneumonia, Mass of right lung Admit Date/Time: 02/17/21 17:23 Admit Provider: Jodi Perez Attending Provider: Jodi Perez Primary Care Provider: Savanna Guillen ED Provider: Josse Boyd Discharge Data Discharge Date/Time-TO BE ENTERED AT DEPARTURE: 02/17/21 17:58 Medical Decision Making <Xiao Guerrier - Last Filed: 02/19/21 08:03> 85-year-old female presents to the ER with chief complaint shortness of breath and cough which is been ongoing for the last 3 weeks. Patient reports that it is nonproductive although she feels like she needs to cough stuff up. She does have albuterol inhaler at home which she has not used today. On initial presentation she is hypoxic and had a room air sat of 85%. She does not normally use oxygen. She has a past medical history of Alzheimer's dementia, obstructive sleep apnea, type 2 diabetes, GERD, arteriosclerotic cardiovascular disease, heart murmur, COPD, coronary stent, acute kidney injury, hyperlipidemia, hypertension, coronary artery disease. Cardiac work-up ordered including chest x-ray, serial troponins and Covid test. Patient placed on 2 L nasal cannula upon initial presentation O2 sat up to 93%, DuoNeb ordered. CBC shows white blood cell count 11.36 absolute neutrophils 9.77, CMP is pending at this time, FINDINGS: MEDIASTINUM: Normal. HEART: Upper limits of normal. PULMONARY VASCULATURE: Mild pulmonary venous congestion. LUNGS: Prominent interstitial markings present in the perihilar regions. No focal consolidating infiltrate. PLEURAL SPACE: No pneumothorax. Small amount of fluid in the minor fissure. BONE:Within normal limits for the patient's age. OTHER FINDINGS:Unchanged elevation of the right hemidiaphragm. IMPRESSION: Findings suspicious for pulmonary venous congestion and interstitial edema. No focal consolidating infiltrates. Please correlate clinically. CMP shows sodium 132, glucose 210, magnesium 1.7 proBNP 337 albumin 2.8, Covid is negative. Patient still quickly drops down to the 80s on room air, O2 sat is 90% at this time on 2 L nasal cannula. She has received a DuoNeb. This time it is unclear of what is causing her hypoxia. Will discuss with hospitalist and recommend admission. 1504: Hospitalist paged. 1538: D-Dimer added on, Hospitalist paged again. 1551: Spoke with Dr. Bansal hospitalist regarding patient case and details. He does agree to accept patient for admission however he does recommend a CT of her chest to rule out PE or pneumonia. CT ordered. Care is to be handed off to oncoming provider Gregg Boyd, [place] pending CT results and transfer the floor. Effective disposition admission. Patient was hemodynamically stable at the time of this dictation. This text was generated using [employer] system, please disregard any oddities of phrase or misspellings. Lab Data Lab results reviewed: Yes I reviewed the patient's lab results. Lab results narrative: Laboratory Tests Range/Units 02/17/21 02/17/21 02/17/21 13:30 13:47 13:47 WBC (4.4-10.8) 10^3/uL 11.36 H RBC (3.93-5.22) 10^6/uL 4.07 Hgb (11.2-15.7) g/dL 12.3 Hct (36.0-46.0) % 35.9 L MCV (80-95) fL 88.2 MCH (27.0-33.0) pg 30.2 MCHC (32.0-36.0) % 34.3 RDW (11.7-14.6) % 13.2 Plt Count (130-400) 10^3/uL 254 MPV (8.0-11.0) fL 10.4 Immature Gran % 0.4 Neutrophils % 86.0 Lymphocytes % 4.8 Monocytes % 7.4 Eosinophils % 1.1 Basophils % 0.3 Nucleated RBC % % 0 Absolute Neutrophils (1.2-6.7) 10^3/uL 9.77 H Absolute Lymphocytes (1.2-3.4) 10^3/uL 0.55 L Absolute Monocytes (0.1-0.8) 10^3/uL 0.84 H Absolute Eosinophils (0.0-0.7) 10^3/uL 0.12 Absolute Basophils (0.0-0.2) 10^3/uL 0.03 Sodium (136-145) mmol/L 132 L Potassium (3.5-5.1) mmol/L 3.9 Chloride (98-107) mmol/L 96 L Carbon Dioxide (21.0-32.0) mmol/L 29.1 Anion Gap (3-11) mmol/L 6.9 BUN (7-18) mg/dL 16 Creatinine (0.55-1.02) mg/dL 1.1 H Estimated GFR/1.73 m2 (mL/min/1.73m2) 47.32 Glucose (74-106) mg/dL 210 H Calcium (8.5-10.1) mg/dL 8.6 Magnesium (1.8-2.4) mg/dL 1.7 L Total Bilirubin (0.2-1.0) mg/dL 1.5 H AST (15-37) U/L 24 ALT (14-59) U/L 26 Alkaline Phosphatase (46-116) U/L 153 H Troponin I (<or=60) ng/L < 50 NT-Pro-B Natriuret Pep (<300) pg/mL 337 H Total Protein (6.4-8.2) g/dL 6.9 Albumin (3.4-5.0) g/dL 2.8 L COVID-19 Source Nasal/Nares SARS-CoV-2 (PCR) (Negative) Negative <Josse Boyd NP - Last Filed: 02/18/21 17:06> Patient signed out to me by Xiao MCRAE. Patient is pending CT imaging before admission and is doing diagnostic imaging at time of care transition. Hospitalist aware of request for admission and will review CT imaging and contact hospitalist once imaging is available. 1647-reviewed radiological imaging and spoke with virtual radiologist in regards to CT findings of right hilar mass with lymphadenopathy along with groundglass opacities. Paged and spoke with the hospitalist in regards to admission which he is agreeable. Blood cultures and antibiotics were ordered for groundglass opacities and patient was informed of possible cross reaction of her penicillin allergy and ceftriaxone and we are both agreeable with continuing ceftriaxone unless reaction appears. Patient is stable in appearance and is agreeable with plan of care and Hospitalist to input admission orders HPI <Xiao Guerrier - Last Filed: 02/19/21 08:03> General Mode of arrival: ambulatory. Date/Time Provider Initiated Documentation: 02/17/21 13:10. Limitations to Documentation: no limitations. Information obtained by: patient, RN notes reviewed and old records reviewed. HPI Narrative: 85-year-old female presents to the ER with chief complaint shortness of breath and cough which is been ongoing for the last 3 weeks. Patient reports that it is nonproductive although she feels like she needs to cough stuff up. She does have albuterol inhaler at home which she has not used today. On initial presentation she is hypoxic and had a room air sat of 85%. She does not normally use oxygen. She has a past medical history of Alzheimer's dementia, obstructive sleep apnea, type 2 diabetes, GERD, arteriosclerotic cardiovascular disease, heart murmur, COPD, coronary stent, acute kidney injury, hyperlipidemia, hypertension, coronary artery disease. Related Data Home Medications Medication Instructions Recorded Confirmed blood-glucose meter [OneTouch #1 kit 08/15/15 01/11/21 Ultra2 Meter] lancets #200 each 08/10/18 01/11/21 blood sugar diagnostic #200 each 08/21/19 01/11/21 diaper,brief,adult,disposable #126 each 12/24/19 01/11/21 flash glucose sensor #1 ea 12/24/19 01/11/21 incontinence pad, liner, disp #312 each 12/24/19 01/11/21 nitroglycerin 0.4 mg sublingual 0.4 mg SUBLINGUAL Q5 MIN PRN X3 12/24/19 02/17/21 tablet PRN #50 tab loperamide 4 mg PO TID PRN 02/07/20 02/17/21 metoprolol tartrate 25 mg tablet 25 mg PO BID #180 tab 06/18/20 02/17/21 pen needle, diabetic 32 gauge x #200 each 06/18/20 01/11/2132 turmeric 400 mg capsule 400 mg PO DAILY 06/18/20 02/17/21 flash glucose scanning reader #2 ea 07/03/20 01/11/21 aspirin 81 mg tablet,delayed 81 mg PO HS #90 tab 08/14/20 02/17/21 release albuterol sulfate 90 mcg/actuation 1 - 2 puff INHALATION Q4H PRN #1 08/20/20 02/17/21 aerosol inhaler inhaler diclofenac sodium 1 % topical gel 2 g TOPICAL QID #100 g 08/20/20 02/17/21 oxybutynin chloride 5 mg 5 mg PO HS #90 tab 10/23/20 02/17/21 tablet,extended release 24 hr isosorbide mononitrate 30 mg 30 mg PO DAILY #90 tab 11/11/20 02/17/21 tablet,extended release 24 hr donepezil 5 mg disintegrating 5 mg PO QHS #90 tab 11/18/20 02/17/21 tablet insulin glargine 100 unit/mL (3 38 unit SUB-Q BID #30 ml 11/19/20 02/17/21 mL) subcutaneous pen pregabalin 50 mg capsule 50 mg PO BID #60 cap 12/01/20 02/17/21 rosuvastatin 5 mg tablet 5 mg PO DAILY #90 tab 01/12/21 02/17/21 nortriptyline 10 mg capsule 10 mg PO HS #90 cap 02/09/21 02/17/21 benzonatate 100 mg PO TID PRN PRN #12 cap 02/18/21 levofloxacin 750 mg PO DAILY #5 tab 02/18/21 prednisone 40 mg PO DAILY #10 tab 02/18/21 ropinirole 1 mg PO QPM 02/18/21 02/18/21 Previous Rx's Medication Instructions Recorded lancets #200 each 08/10/18 blood sugar diagnostic #200 each 08/21/19 diaper,brief,adult,disposable #126 each 12/24/19 flash glucose sensor #1 ea 12/24/19 incontinence pad, liner, disp #312 each 12/24/19 nitroglycerin 0.4 mg sublingual 0.4 mg SUBLINGUAL Q5 MIN PRN X3 12/24/19 tablet PRN #50 tab metoprolol tartrate 25 mg tablet 25 mg PO BID #180 tab 06/18/20 pen needle, diabetic 32 gauge x #200 each 06/18/20 flash glucose scanning reader #2 ea 07/03/20 aspirin 81 mg tablet,delayed 81 mg PO HS #90 tab 08/14/20 release albuterol sulfate 90 mcg/actuation 1 - 2 puff INHALATION Q4H PRN #1 08/20/20 aerosol inhaler inhaler diclofenac sodium 1 % topical gel 2 g TOPICAL QID #100 g 08/20/20 oxybutynin chloride 5 mg 5 mg PO HS #90 tab 10/23/20 tablet,extended release 24 hr isosorbide mononitrate 30 mg 30 mg PO DAILY #90 tab 11/11/20 tablet,extended release 24 hr donepezil 5 mg disintegrating 5 mg PO QHS #90 tab 11/18/20 tablet insulin glargine 100 unit/mL (3 38 unit SUB-Q BID #30 ml 11/19/20 mL) subcutaneous pen pregabalin 50 mg capsule 50 mg PO BID #60 cap 12/01/20 rosuvastatin 5 mg tablet 5 mg PO DAILY #90 tab 01/12/21 nortriptyline 10 mg capsule 10 mg PO HS #90 cap 02/09/21 benzonatate 100 mg PO TID PRN PRN #12 cap 02/18/21 levofloxacin 750 mg PO DAILY #5 tab 02/18/21 prednisone 40 mg PO DAILY #10 tab 02/18/21 Allergies Allergy/AdvReac Type Severity Reaction Status Date / Time Penicillins Allergy Severe skin rash Verified 02/17/21 13:22 atorvastatin AdvReac Intermediate muscle Verified 02/17/21 13:22 aches metformin AdvReac Intermediate Diarrhea Verified 02/17/21 13:22 General Stated Complaint: RespSymp RAFAELA: 2 Review of Systems <Xiao Guerrier - Last Filed: 02/19/21 08:03> All systems reviewed & are unremarkable except as noted in HPI and below Cardiovascular Cardiovascular: Denies chest pain and Reports dyspnea Respiratory Respiratory: Reports as per HPI, Reports cough and Reports dyspnea PFS <Xiao Guerrier - [facility] Filed: 02/19/21 08:03> All Active Problems (Updated 02/19/21 @ 00:05 by CECILE GUERRERO) Cough in adult (Chronic) symptom of lung cancer Elevated d-dimer (Acute) likely due to malignancy Goals of care, counseling/discussion (Acute) Has same sex partner (Acute) Palliative care patient (Acute) Lung mass (Acute) Mediastinal lymphadenopathy (Acute) Pneumonia (Acute) Mass of right lung (Acute) 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 Pylori Status post total knee replacement, right (Acute) DOS: 06/26/2018 Dr. Johnny Johnson of behavior change (Acute) Esophagitis (Acute 12/13/16) Dehydration (Acute) Transient global amnesia (Acute) HEAD (dyspnea on exertion) (Acute) Chest pain at rest (Acute) Status post total knee replacement (Acute) ASCVD (arteriosclerotic cardiovascular disease) (Acute) Cardiloogy Stefan Munguia Loss of equilibrium (Acute) Carpal tunnel syndrome on right (Acute) s/p ECTR DOS: 03/04/20 Derangement of left acromioclavicular joint (Acute) Obesity (Chronic) Tendonitis of left rotator cuff (Acute) Colitis (Acute) resolved. Primary osteoarthritis of right knee (Chronic) Tinnitus of both ears (Acute 09/26/14) Skin lesion of left ear (Acute 10/31/15) Sensorineural hearing loss, bilateral (Acute 09/13/13) Sciatica (Acute 02/19/11) Primary osteoarthritis involving multiple joints (Acute 10/30/14) Diverticulitis of colon (Acute 02/19/11) RECURRENT Diabetic neuropathy (Chronic 01/24/14) peripheral neuropathy Medical History (Updated 02/19/21 @ 00:05 by CECILE GUERRERO) JEMIMA (acute kidney injury) Alzheimer's dementia Angina at rest (02/19/11) very rare, follow with Dr. Fiore Atherosclerosis of [place] coronary artery of [place] heart with angina pectoris UNSTABLE ANGINA, CATH 01/2011 JOHN to OM1 EF 65%. MPI 06/10/11 no ischemia, sm septal defect, nl EF CAD (coronary artery disease) Chest pain (04/28/14) Chronic kidney disease, stage III (moderate) Diabetes mellitus with neuropathy goal 7.5; insulin begun 07/2016 Edema (09/05/15) nl EF, proably venous Essential hypertension (07/27/12) goal 140/90 Fibromyalgia (12/18/14) Dx 12/[address] Kraft Rheum [facility] Gastritis, chronic (12/13/16) with gastric polyps. (12/13/16 report of operation). [place] GERD (gastroesophageal reflux disease) H/O diverticulitis of colon Hearing loss of both ears Heart murmur History of rheumatic fever Hyperlipidemia (02/19/11) LDL baseline 127 intol ator, simv 20mg Hypertension Mild obstructive sleep apnea (06/29/20) Old myocardial infarction 1999 RANDEE (obstructive sleep apnea) Osteopenia (02/19/11) T -1.6 Osteoporosis Positive cardiac stress test (06/30/17) has sched cardiac cath 07/[address] Arnett. Pulmonary edema Rectal bleed Syncope (05/15/14) neg w/u Type 2 diabetes mellitus Urinary incontinence (06/05/14) Sacral stimulator: Dr Stokes in [facility] Surgical History Colonoscopy - MAC (12/13/16) Coronary Stent (07/12/17) [facility]. Kenyon Arnett MD report date . procedures: coronary angiography,left heart catherization,coronary stent insertion. x2 EGD - MAC (12/13/16) Postsurgical percutaneous transluminal coronary angioplasty status 2008 S/P right knee arthroscopy Dr. Galloway >10 years Status post implantation of urinary electronic stimulator device Tonsillectomy Family History (Updated 02/18/21 @ 20:58 by Cecily Courtney MD) Father , [place] Heart disease Hypertension Sister , age 76 Stomach cancer Colon cancer Mother , at age 102--or 109. Sonia unsure. Hypertension Paternal Grandfather Stroke Social History (Updated 02/18/21 @ 21:01 by Cecily Courtney MD) Smoking/Tobacco Use Status: Former Tobacco Use Quit Date: 02/15/68 Tobacco: How many years used: 18 Smoking risk assessment performed?: Yes Alcohol Intake: current Alcohol Intake frequency: holidays/special occasions only Alcohol type: wine Drug use: Never Substance use type: does not use Caregiver/Support person: Yes Household members: significant other Housing: house Number of Children: 0 Communication Needs: Corrective Lenses Education Level: high school Do you need help understanding health information?: Always current occupation: retired Pets and animals: Yes Pets and animals: cat(s) Sexually active: No Do you think of yourself as: lesbian/rivas/homosexual Current gender identity: female What is your relationship status?: living with partner Panel score (0-1 are the most socially isolated patients): 1 What type of physical activity do you participate in: none Frequency: does not exercise Special saurabh needs: No Seatbelt use: always Drive intox or ride w/intox otr driver: No Working smoke detector in home: Yes Fire extinguisher in home: Yes Carbon monox detector in home: Yes Do you feel safe at home: Yes Do you feel safe in your relationship?: Yes Additional Social history: Sonia has lived with her partner, Jessenia, for more than 60 years. They met at the [facility] in [place], [place]. Jessenia is from [place]. They retired here, not sure when a long time ago. 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 Pleasant. Not sure how she wants to proceed specifically re: treatment plans. IF my cancer has spread, I don't want to do anything. If it can't be cured, I don't want treatment. Exam <Xiao Guerrier - Last Filed: 02/19/21 08:03> Narrative Exam Narrative: Constitutional: Alert and oriented x3. Appears stated age. Normal body habitus. Head: Normocephalic, no trauma. Eyes: Pupils PERRL, Red reflex noted, EOM's intact. Eyelids symmetrical without lesions, discharge, or swelling. ENT: Bilateral TM's WNL, External ear normal to inspection, no mastoid TTP, swelling, or erythema, Nasal turbinates WNL, no nasal discharge. Normal dentition, Posterior pharynx WNL, no exudate. Chest: RRR, Normal S1, S2, distal pulses intact. Resp: Lungs clear to auscultation bilaterally, no wheezes, rales, or rhonchi. Abdomen: Soft, non-distended, Normoactive bowel sounds all 4 quads. Musculoskeletal: Normal gait, 5/5 strength to all four extremities. Skin: No suspicious rashes or lesions. Capillary refill less than 2 sec. Neurologic: Cranial nerves II-XII intact. Alert and oriented x 3. Motor: No deficits noted. Sensory: Intact bilaterally all 4 extremities. Reflexes: DTR's intact bilaterally.. Hematologic/Lymphatic: No ecchymosis, no lymphadenopathy. Course <iXao Guerrier - Last Filed: 02/19/21 08:03> Vital Signs Vital signs: Vital Signs Temperature 36.6 C 02/17/21 13:19 Pulse 92 H 02/17/21 13:19 Respiratory Rate 18 02/17/21 13:19 Blood Pressure 170/68 H 02/17/21 13:19 Pulse Oximetry 85 L 02/17/21 13:19 Temperature 36.6 C 02/17/21 13:19 Temperature Source Skin 02/17/21 13:19 Pulse 92 H 02/17/21 13:19 Respiratory Rate 18 02/17/21 13:19 Blood Pressure 170/68 H 02/17/21 13:19 Blood Pressure Position Sitting 02/17/21 13:19 Pulse Oximetry 85 L 02/17/21 13:19 Oxygen Delivery Method Room Air 02/17/21 13:19 Oxygen Flow Rate 0 02/17/21 13:19 Pain Level 0 02/17/21 13:19 Sign Out <Xiao Guerrier - Last Filed: 02/19/21 08:03> Sign Out Data: Sign Out Comment: Pending CTA chest and likely admission. Last updated by Xiao Guerrier at 02/17/21 16:03
--- OUTSIDE RECORDS SUMMARY | 2021-02-17 13:25 | XMS_ITS ---
:1935 Author Care Team Providers Name Role Phone DR. GWEN SILVA Primary Care Provider [phone] DR. GWEN SILVA Referring Provider [phone] Allergies Code Code System Name Reaction Severity Status Onset 25741 RxNorm Atorvastatin ? ? Active ? 6809 RxNorm Metformin ? ? Active ? Penicillins ? ? Active ? Medications Name Status Start Date Stop Date ? ? Aspir-81 mg tablet,delayed release Active ? Not available Take 1 tablet every day by oral route. furosemide 20 mg tablet Active ? Not avai lable Take 1 tablet every day by oral route. glipizide ER 10 mg tablet, extended release 24 hr Active ? Not available Take 2 tablets twice a day by oral route. Lantus Solostar U-100 Insulin 100 unit/mL (3 mL) subcutaneous pe n Active ? Not available Inject 24 units every day by subcutaneous route at bedtime. lisinopril 5 mg tablet Active ? Not avail able Take 1 tablet every day by oral route. lovastatin 10 mg tablet Active ? Not avai lable Take 1 tablet every day by oral route. metoprolol tartrate 25 mg tablet Active ? Not available Take 1 tablet twice a day by oral route. nitroglycerin 0.4 mg sublingual tablet Active ? Not available PLACE 1 TABLET (0.4 MG) BY SUBLINGUAL R OUTE EVERY 5 MINUTES NEEDEDFOR CHEST PAIN. DO NOT EXCEED 3 DOSES IN 15 MINUTES. nortriptyline 25 mg capsule Active ? Not available Take 1 capsule every day by oral route. pantoprazole 40 mg tablet,delayed release Active ? Not available Take 1 tablet every day by oral route. Ventolin HFA 90 mcg/actuation aerosol inhaler Active ? Not available Inhale 2 puffs every 4 hours by inhalation route as needed. Problems Name Status Onset Date Source ? Type 2 Diabetes Mellitus Active 08/31/2016 ? Hypertensive Disorder Active 08/31/2016 ? Heart Disease Active 08/31/2016 ? Notes: implantable device--left rump for bladder problems Procedures Date Name Performed by ? ? Knee Surgery Information not avai lable Notes: right ? Cataract Surgery Information not avai lable Notes: bilateral Results Lab Results None recorded. Past Encounters None recorded. Social History Tobacco Smoking Status Former Smoker Notes: quit ag e 33---09/02/16 Vaccine List Vaccine Type novel [id number] 01/14/2012 pertussis 01/14/2012 pneumococcal, unspecified formulation 06/10/2010 06/30/2014 Td(adult) unspecified formulation 01/14/2012 zoster live 06/23/2007 Plan of Care Reminders Provider Appointments None ? ? recorded. Lab None ? ? recorded. Referral None ? ? recorded. Procedures None ? ? recorded. Surgeries None ? ? recorded. Imaging None ? ? recorded. Vitals 09/16/2016 09:30AM FOLLOW UP Weight Blood Pressure 85.28 kg 120/62 mm[Hg] 09/02/2016 09:00AM NEW PATIENT Weight Blood Pressure 85.28 kg 118/54 mm[Hg]
--- OUTSIDE RECORDS SUMMARY | 2021-02-17 13:25 | XMS_ITS ---
:1935 Author Care Team Providers Name Role Phone JUDY ESTRELLA NP Primary Care Provider [phone] ZECHARIAH HENRIQUEZP-PC Referring Provider [phone] [facility] OTHER [phone] Allergies Code Code System Name Reaction Severity Status Onset 28797 RxNorm Atorvastatin ? ? Active ? 6802 RxNorm Metformin ? ? Active ? Penicillins [...] ? ? ? [place] Serum or recorded. [facility] Plasma For Sleep Disorders: [address] [place] [address] Past Encounters 12/18/2020 Obstructive Sleep Apnea Syndrome; Restle ss Legs; Cataplexy Sharlene Senior AUTO MOTOR MECHANIC: [address] [place] [phone], Ph. 09/09/2020 Obstructive Sleep Apnea Syndrome; Restle ss Legs; Cataplexy Sharlene Senior NP: [address] [place] [phone], Ph. 06/12/2020 Daytime Somnolence; Restless Legs; Catap barney; Pain in Right Knee Sharlene Senior AUT[employer] MOTOR MECHANIC: [address] [place] [phone], Ph. Social History Tobacco Smoking Status Former [...]
--- OUTSIDE RECORDS SUMMARY | 2021-02-17 13:25 | XMS_ITS | Encounter Summary ---
:1935 Author Care Team Providers Name Role Phone Savanna Guillen NP Primary Care Provider [phone] Ruthie Calabresep-PC Referring Provider [phone] [facility] OTHER [phone] Reason for Visit None recorded. Assessment and [...] than half the time was spent in [id number] counseling. ? sleep study, baseline diag nostic [...] available. Plan of Care Reminders Provider Appointments None ? ? recorded. Lab None ? ? recorded. Referral None ? ? recorded. Procedures None ? ? recorded. Surgeries None ? ? recorded. Imaging None ? ? recorded. Medications Name Start Date ? ? albuterol sulf 90 mcg/actuation breath activated powde r inhaler,sensor ? Inhale 2 puffs every [...] Code Code System Name Reaction Severity Onset 51153 RxNorm Atorvastatin ? ? ? 6809 RxNorm [...] Apnea Syndrome; Restle ss Legs; Cataplexy Sharlene Senior, ENVIRONMENTAL EPIDEMIOLOGIST: [address] [place] [phone], Ph. History of Present Illness Note: <p>Sonia Quiroz has a visit for RANDEE and RLS follow-up.</p><div>
</div><p>Sonia was seen by me on 06/12/20. She has a medical history to include COPD, CKD, CAD (s/p MT), DM, fibromyalgia, diverticulitis, HTN, HLD, obesity, GERD, [...]
[2021-02-17] MEDS: methylPREDNISolone SUCC 125 MG VIAL 80 MG IVP (13:48)
[2021-02-17 13:57] LABS: Source Nasal/Nares
[2021-02-17 13:59] LABS: Abs Immature Grans 0.05 10^3/uL (0.0-0.06); Absolute Basophil Count 0.03 10^3/uL (0.0-0.2); Absolute Eosinophil Count 0.12 10^3/uL (0.0-0.7); Absolute Monocyte Count 0.84 10^3/uL (0.1-0.8); Basophils % 0.3; Eosinophils % 1.1; HCT 35.9 % (36.0-46.0); HGB 12.3 g/dL (11.2-15.7); Immature Grans % 0.4; Lymphocytes % 4.8; MCH 30.2 pg (27.0-33.0); MCHC 34.3 % (32.0-36.0); MCV 88.2 fL (80-95); MPV 10.4 fL (8.0-11.0); Monocytes % 7.4; Nucleated RBC 0 %; Platelet Count 254 10^3/uL (130-400); RBC 4.07 10^6/uL (3.93-5.22); RDW 13.2 % (11.7-14.6); RDW-SD 42.4 fL; WBC 11.36 10^3/uL (4.4-10.8)
--- NOTE | 2021-02-17 14:01 | DI.RAD_ITS ---
Exam(s) XR PORTABLE CHEST AP EXAM: XR PORTABLE CHEST AP CLINICAL HISTORY: SOB, PUI TECHNIQUE: 2D digital imaging was performed of the chest. One image was obtained. An AP view was ob tained. COMPARISON: CR,XR XR PORTABLE CHEST AP from 02/07/2020 CR XR CHEST 2V PA LATERAL from 02/12/2021 CR XR CHEST 2V PA LATERAL from 02/12/2021 FINDINGS: MEDIASTINUM: Normal. HEART: Upper limits of normal. PULMONARY VASCULATURE: Mild pulmonary venous congestion. LUNGS: Prominent interstitial markings present in the perihilar regions. No focal consolidating infi ltrate. PLEURAL SPACE: No pneumothorax. Small amount of fluid in the minor fissure. BONE:Within normal limits for the patient's age. OTHER FINDINGS:Unchanged elevation of the right hemidiaphragm. IMPRESSION: Findings suspicious for pulmonary venous congestion and interstitial edema. No focal consolidating i nfiltrates. Please correlate clinically. DATA REPOSITORY: RADIATION DOSE DELIVERED:
[2021-02-17 14:02] LABS: Absolute Lymphocyte Count 0.55 10^3/uL (1.2-3.4); Absolute Neutrophil Count 9.77 10^3/uL (1.2-6.7)
[2021-02-17] MEDS: Albuterol/Ipratropium 3 ML UPD VIAL UPD (14:15)
[2021-02-17 14:27] LABS: ALT 26 U/L (14-59); AST 24 U/L (15-37); Albumin 2.8 g/dL (3.4-5.0); Alkaline Phosphatase 153 U/L (46-116); Anion Gap 6.9 mmol/L (3-11); BUN 16 mg/dL (7-18); Bilirubin, Total 1.5 mg/dL (0.2-1.0); CO2 29.1 mmol/L (21.0-32.0); CREATININE 1.1 mg/dL (0.55-1.02); Calcium 8.6 mg/dL (8.5-10.1); Chloride 96 mmol/L (98-107); Estimated GFR 47.32 (mL/min/1.73m2); Glucose 210 mg/dL (74-106); Magnesium 1.7 mg/dL (1.8-2.4); NT-proBNP 337 pg/mL (<300); Potassium 3.9 mmol/L (3.5-5.1); Sodium 132 mmol/L (136-145); Total Protein 6.9 g/dL (6.4-8.2); Troponin I < 50 ng/L (<or=60)
[2021-02-17 15:00] LABS: COVID-19 PCR Negative (Negative)
--- NOTE | 2021-02-17 15:46 | DI.CT_ITS ---
Exam(s) CT CHEST PE CTA EXAM: CT CHEST PE CTA CLINICAL HISTORY: Hypoxia, R/O PE, PNA. TECHNIQUE: Imaging Protocol: Axial CT angiography was performed with multi-slice acquisition and mu lti-planar and/or 3D reconstructions. CONTRAST MATERIAL: Intravenous: Omnipaque 350 Contrast volume:100 mL COMPARISON: CT CTA THORAX from 08/21/2015 CT CTA THORAX from 08/21/[address] ABDOMEN PELVIS WO from 06/12/2018 FINDINGS: Tracheobronchial tree: Patent where visualized. Pulmonary parenchyma: There are patchy bilateral ground-glass opacities. No architectural distortion . There is soft tissue seen in the right hilum which appears to narrow the upper lobe bronchus. It m easures 2 x 2.4 cm. Pulmonary Arteries: No evidence of filling defect to suggest pulmonary emboli. Mediastinum and Keisha: There multiple enlarged mediastinal and hilar lymph nodes. The largest is in t he left hilum and measures 2.3 x 1.8 cm. There is a 2.3 x 1.2 cm lymph node in the AP window. Visualized thyroid gland: Unremarkable. Pleura: There are small bilateral pleural effusions and subjacent infiltrates. No pneumothorax. Heart: The heart is not dilated. Coronary artery calcifications. No pericardial effusion. Aorta: Thoracic aorta non-dilated. No evidence of dissection. Atherosclerosis. Upper abdomen: Unremarkable. Soft tissues: Unremarkable. Bones: Within normal limits for the patient's age. IMPRESSION: 1. No evidence of pulmonary embolism, thoracic aortic dissection or aneurysm. 2. Mediastinal and hilar adenopathy. 3. 2 x 2.4 cm soft tissue in the right hilum which narrows the bronchus to the right upper lobe. Thi s may represent a central mass or adenopathy. 4. Patchy bilateral ground-glass opacities which may represent a multifocal pneumonia. Etiologies sh ould include COVID 19. 5. Small bilateral pleural effusions and subjacent atelectasis. RADIATION DOSE DELIVERED: 312.95mGy.cm Total DLP DATA REPOSITORY: All CT scans at this facility are submitted to the National Radiology Data Registry (NRDR) Dose Index Registry (DIR) with the [employer] (ACR). RADIATION OPTIMIZATION: All CT scans at this facility use at least one of these dose optimization te chniques: automated exposure control; mA and/or kV adjustment per patient size (includes targeted exa ms where dose is matched to clinical indication); or iterative reconstruction.
[2021-02-17] MEDS: Magnesium Oxide 400 MG TAB PO (15:55)
[2021-02-17 16:10] LABS: Bilirubin Negative (Negative); Blood Trace-intact (Negative); Clarity Sl Cloudy (Clear); Glucose Negative (Negative); Ketones 15 mg/dL (Negative); Leukocyte Esterase Moderate (Negative); Nitrite Positive (Negative); Specific Gravity 1.025 (1.005-1.025); pH 5.5 (5-8)
[2021-02-17] MEDS: Omnipaque 350 MG/ML 100 ML BTL IV (16:14)
[2021-02-17] MEDS: Normal Saline Flush 10 ML SYR IVP (16:15)
[2021-02-17 16:19] LABS: D-Dimer 1808 ng/mlFEU (<500)
[2021-02-17 16:24] LABS: WBC >50 HPF (0-5)
[2021-02-17 16:25] LABS: Bacteria Many HPF (Negative); Epithelial Cells Many HPF (Negative); Mucus Heavy (Negative)
[2021-02-17 16:26] LABS: C & S Indicated? No/Sq. Contamination
--- NOTE | 2021-02-17 16:45 | DI.VRAD_ITS ---
Addendum created by Ibrahima Neives MD on 02/17/2021 5:03:09 PM EST: THIS REPORT CONTAINS FINDINGS THAT MAY BE CRITICAL TO PATIENT CARE. The findings were verbally communicated via telephone conference with CLEMENTINA Boyd at 5:02 PM EST on 02/17/2021. The findings were acknowledged and understood. Initial report created on 02/17/2021 4:44:36 PM EST: PROCEDURE INFORMATION: Exam: CTA Chest With Contrast Exam date and time: 02/17/2021 4:16 PM Age: 85 years old Clinical indication: Other: Hypoxia, R/O pe, pna TECHNIQUE: Imaging protocol: Computed tomographic angiography of the chest with contrast. 3D rendering (Not supervised by radiologist): MIP and/or 3D reconstructed images were created by the technologist. Radiation optimization: All CT scans at this facility use at least one of these dose optimization techniques: automated exposure control; mA and/or kV adjustment per patient size (includes targeted exams where dose is matched to clinical indication); or iterative reconstruction. Contrast material: OMNIPAQUE 350; Contrast volume: 100 ml; Contrast route: INTRAVENOUS (IV); COMPARISON: CTA THORAX 08/21/2015 2:11 PM FINDINGS: Pulmonary arteries: No evidence of pulmonary embolus to the segmental level. Aorta: No aneurysm of the aorta. No dissection of the aorta. Lungs: Soft tissue density in the right hilum narrows the bronchus to the right upper lobe. Series 4, image 21. It did not have this appearance in 2016. Findings worrisome for a mass. Soft tissue density measures 2 by 2.4 cm. Patchy bilateral ground-glass opacities may represent multifocal pneumonia including COVID. Pleural spaces: Bilateral pleural effusions Heart: Unremarkable. No cardiomegaly. No pericardial effusion. Lymph nodes: Pathologic lymph node in the preaortic region 2.3 x 1.4 cm. . Bones/joints: Unremarkable. No acute fracture. Soft tissues: Unremarkable. IMPRESSION: 1. No evidence of pulmonary embolus to the segmental level. 2. Pathologic lymph node in the preaortic region 2.3 x 1.4 cm. . 3. Soft tissue density in the right hilum narrows the bronchus to the right upper lobe. Series 4, image 21. It did not have this appearance in 2016. Findings worrisome for a mass. Soft tissue density measures 2 by 2.4 cm. 4. Patchy bilateral ground-glass opacities may represent multifocal pneumonia including COVID. Dictated and Authenticated by: Ibrahima Nieves MD. Ordering:THOMPSON Hagen MD
[2021-02-17] MEDS: Furosemide 40 MG/4 ML VIAL IVP (17:54)
[2021-02-17] MEDS: cefTRIAXone 1 GM/50 ML BAG IVPB (17:54)
[2021-02-17 18:02] LABS: Troponin I < 50 ng/L (<or=60)
--- NOTE | 2021-02-17 18:38 | HPE_ITS ---
Date of service: 02/17/21 Time of Service: 18:39 Assessment and Plan Assessment and plan (1) Pulmonary edema: Status: Acute Assessment and plan: No formal diagnosis of CHF prior to this presentation. Echo from 11/13/2019 shows LVEF of 68%, nml LV wall motion, no evidence of pulm hypertension. Will diurese. I think that the groundglass opacitices on CT could very well represent pulmonary edema. Will obtain echo. Monitor I/O's, daily weights. Check TSH. Monitor on tele. (2) COPD with hypoxia: Status: Acute Assessment and plan: Tx with nebs. Check procalcitonin. Pulmonology is consulted. (3) Mass of right lung: Status: Acute Assessment and plan: Pulmonoogy consulted. Suspect this is the cause of chronic cough. (4) Type 2 diabetes mellitus: Status: Chronic Assessment and plan: Continue home long acting insulin and cover with SSI. Check A1C. 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 She lives with her friend Loulou who helps her with her medications. Loulou is also her DPOA. At this time, her living environement sounds safe. F/u as outpatient. (6) Hypomagnesemia: Status: Acute Assessment and plan: Replete, recheck in am (7) DVT prophylaxis: Status: Acute Assessment and plan: sc enoxaparin (8) Discharge planning issues: Status: Acute Assessment and plan: The patient is not sure about her wishes as far as her code status. Consult palliative care. The patient would like her DPOA/friend Loulou to participate in this conversation as well. She is full code by default until then. Consult physical therapy. History of Present Illness History of Present Illness Chief Complaint: Shortness of breath and cough x 3 weeks Narrative: Ms Quiroz is an 85 year old female with PMHx of non-oxygen dependent COPD, CAD s/p CT and stents x 3, IDDM2, HTN, dementia who had presented to [facility] ED today c/o 3 weeks of nonproductive cough and shortness of breath. She was hypoxic to 85% on RA and required initiation of supplemental ox ygen. She tested negative for COVID-19 in the ED. Of note, she was seen by her PCP on 01/07/21 for cough. At that time, there is record of being seen at urgent care two weeks prior and it is noted that the cough has already been going on for 1 month. She tested negative for COVID-19 at that time as well. She was prescribed prednisone at that time. Upon further questioning, the patient states that actually, yes, it has been months since she has had her cough. She denies fevers, chest pain, orthopnea. She denies leg swelling. She states that she sometimes gets out of breath while sitting and talking, and she has been attributing this to her abdomen cutting off the air. Her workup today reveals pulmonary venous congestion/interstital edema on CXR and a 2 x 2.4 cm soft tissue mass in the right hilum which narrows the bronchus of the right upper lobe: central mass vs adenopathy. There is also evidence of patchy bilateral ground-glass opacities. The patient was initiated on antibiotics for presumed possible infectious process. Hospitalist admission was requested. 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 Pylori DVT prophylaxis (Acute) Status post total knee replacement, right (Acute) DOS: 06/26/2018 Dr. Johnny Johnson of behavior change (Acute) Esophagitis (Acute 12/13/16) Hypomagnesemia (Acute) Dehydration (Acute) Transient global amnesia (Acute) Delirium (Acute) HEAD (dyspnea on exertion) (Acute) Chest pain at rest (Acute) Status post total knee replacement (Acute) ASCVD (arteriosclerotic cardiovascular disease) (Acute) Cardiloogy Stefan Munguia Loss of equilibrium (Acute) Carpal tunnel syndrome on right (Acute) s/p ECTR DOS: 03/04/20 Derangement of left acromioclavicular joint (Acute) Obesity (Chronic) Heart murmur (Acute) History of rheumatic fever (Acute) Tendonitis of left rotator cuff (Acute) Colitis (Acute) resolved. JEMIMA (acute kidney injury) (Acute) Primary osteoarthritis of right knee (Chronic) Tinnitus of both ears (Acute 09/26/14) Syncope (Acute 05/15/14) neg w/u Skin lesion of left ear (Acute 10/31/15) Sensorineural hearing loss, bilateral (Acute 09/13/13) Sciatica (Acute 02/19/11) Primary osteoarthritis involving multiple joints (Acute 10/30/14) Positive cardiac stress test (Acute 06/30/17) has sched cardiac cath 07/[address] Arnett. Diverticulitis of colon (Acute 02/19/11) RECURRENT Diabetic neuropathy (Chronic 01/24/14) peripheral neuropathy Atherosclerosis of [place] coronary artery of [place] heart with angina pectoris (Acute) UNSTABLE ANGINA, CATH 01/2011 JOHN to OM1 EF 65%. MPI 06/10/11 no ischemia, sm septal defect, nl EF Angina at rest (Acute 02/19/11) very rare, follow with Dr. Fiore Chest pain (Acute 04/28/14) Medical History (Updated 02/17/21 @ 20:39 by Jodi Perez MD) Alzheimer's dementia CAD (coronary artery disease) Chronic kidney disease, stage III (moderate) Diabetes mellitus with neuropathy goal 7.5; insulin begun 07/2016 Edema (09/05/15) nl EF, proably venous Essential hypertension (07/27/12) goal 140/90 Fibromyalgia (12/18/14) Dx 12/[address] Kraft [facility]um [facility] Gastritis, chronic (12/13/16) with gastric polyps. (12/13/16 report of operation). NC GERD (gastroesophageal reflux disease) H/O diverticulitis of colon Hearing loss of both ears Hyperlipidemia (02/19/11) LDL baseline 127 intol ator, simv 20mg Hypertension Mild obstructive sleep apnea (06/29/20) Old myocardial infarction 1999 Osteopenia (02/19/11) T -1.6 Osteoporosis Rectal bleed Urinary incontinence (06/05/14) Sacral stimulator: Dr Stokes in [facility] Surgical History (Updated 02/17/21 @ 20:39 by Jodi Perez MD) Postsurgical percutaneous transluminal coronary angioplasty status 2008 S/P right knee arthroscopy Dr. Galloway >10 years Status post implantation of urinary electronic stimulator device Tonsillectomy Family History (Updated 02/17/21 @ 20:39 by Jodi Perez MD) Father , [place] Heart disease Hypertension Sister Stomach cancer Mother , at age 102 Hypertension Paternal Grandfather Stroke Social History (Updated 02/17/21 @ 20:40 by Jodi Perez MD) Smoking/Tobacco Use Status: Former Tobacco Use Quit Date: 02/15/68 Tobacco: How many years used: 18 Smoking risk assessment performed?: Yes Alcohol Intake: current Alcohol Intake frequency: holidays/special occasions only Alcohol type: wine Drug use: Never Substance use type: does not use Household members: friend(s) and other Communication Needs: Corrective Lenses Current gender identity: female What type of physical activity do you participate in: none Seatbelt use: always Drive intox or ride w/intox 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 Working smoke detector in home: Yes Fire extinguisher in home: Yes Carbon monox detector in home: Yes Do you feel safe at home: Yes Do you feel safe in your relationship?: Yes Meds Allergies and Home Medications Allergies Allergy/AdvReac Type Severity Reaction Status Date / Time Penicillins Allergy Severe skin rash Verified 02/17/21 13:22 atorvastatin AdvReac Intermediate muscle Verified 02/17/21 13:22 aches metformin AdvReac Intermediate Diarrhea Verified 02/17/21 13:22 Home Medications Medication Instructions Recorded Confirmed Type blood-glucose meter [OneTouch #1 kit 08/15/15 01/11/21 History Ultra2 Meter] lancets #200 each 08/10/18 01/11/21 Rx blood sugar diagnostic #200 each 08/21/19 01/11/21 Rx diaper,brief,adult,disposable #126 each 12/24/19 01/11/21 Rx flash glucose sensor #1 ea 12/24/19 01/11/21 Rx incontinence pad, liner, disp #312 each 12/24/19 01/11/21 Rx nitroglycerin 0.4 mg sublingual 0.4 mg SUBLINGUAL Q5 MIN PRN X3 12/24/19 02/17/21 Rx tablet PRN #50 tab loperamide 4 mg PO TID PRN 02/07/20 02/17/21 History metoprolol tartrate 25 mg tablet 25 mg PO BID #180 tab 06/18/20 02/17/21 Rx pen needle, diabetic 32 gauge x #200 each 06/18/20 01/11/21 Rx turmeric 400 mg capsule 400 mg PO DAILY 06/18/20 02/17/21 History flash glucose scanning reader #2 ea 07/03/20 01/11/21 Rx aspirin 81 mg tablet,delayed 81 mg PO HS #90 tab 08/14/20 02/17/21 Rx release albuterol sulfate 90 mcg/actuation 1 - 2 puff INHALATION Q4H PRN #1 08/20/20 02/17/21 Rx aerosol inhaler inhaler diclofenac sodium 1 % topical gel 2 g TOPICAL QID #100 g 08/20/20 02/17/21 Rx oxybutynin chloride 5 mg 5 mg PO HS #90 tab 10/23/20 02/17/21 Rx tablet,extended release 24 hr isosorbide mononitrate 30 mg 30 mg PO DAILY #90 tab 11/11/20 02/17/21 Rx tablet,extended release 24 hr donepezil 5 mg disintegrating 5 mg PO QHS #90 tab 11/18/20 02/17/21 Rx tablet insulin glargine 100 unit/mL (3 38 unit SUB-Q BID #30 ml 11/19/20 02/17/21 Rx mL) subcutaneous pen pregabalin 50 mg capsule 50 mg PO BID #60 cap 12/01/20 02/17/21 Rx rosuvastatin 5 mg tablet 5 mg PO DAILY #90 tab 01/12/21 02/17/21 Rx nortriptyline 10 mg capsule 10 mg PO HS #90 cap 02/09/21 02/17/21 Rx Exam Narrative Exam Narrative: General: Very pleasant elderly obese female, who is laying in bed at 30 degree angle, on 3L of O2 by NC, no dyspnea/tachypnea/ cyanosis, able to complete full sentences Neurological: A&Ox2, no focal deficits Psychiatric: Appropriate speech pattern/content Skin: Visible skin, including skin on B feet, intact; rosacea HEENT: Atraumatic, normocephalic, EOMI, dry MM, clear oropharynx, no submandibular or cervical lymphadenopahty, no goiter or JVD Cardiovascular: RRR, no m/r/g Lungs: coarse breath sounds B Gastrointestinal: soft, nontender, nondistended Genitourinary: deferred Extremities: +1 edema BLE's, symmetric, no c/c; +1 B pedal pulses. Results Imaging Additional studies: CXR: Findings suspicious for pulmonary venous congestion and interstitial edema. No focal consolidating infiltrates. Please correlate clinically. CTA chest: 1. No evidence of pulmonary embolism, thoracic aortic dissection or aneurysm. 2. Mediastinal and hilar adenopathy. 3. 2 x 2.4 cm soft tissue in the right hilum which narrows the bronchus to the right upper lobe. This may represent a central mass or adenopathy. 4. Patchy bilateral ground-glass opacities which may represent a multifocal pneumonia. Etiologies should include COVID 19. 5. Small bilateral pleural effusions and subjacent atelectasis. EKG: HR 82, NSR, no acute ischemia, inferior Q waves are old (present on EKG from 02/07/2020). Labs Result diagrams: 02/17/21 13:47 02/17/21 13:47 Labs: Laboratory Results - last 24 hr 02/17/21 02/17/21 02/17/21 13:30 13:47 13:47 WBC 11.36 H RBC 4.07 Hgb 12.3 Hct 35.9 L MCV 88.2 MCH 30.2 MCHC 34.3 RDW 13.2 Plt Count 254 MPV 10.4 Immature Gran % 0.4 Neutrophils % 86.0 Lymphocytes % 4.8 Monocytes % 7.4 Eosinophils % 1.1 Basophils % 0.3 Nucleated RBC % 0 Absolute Neutrophils 9.77 H Absolute Lymphocytes 0.55 L Absolute Monocytes 0.84 H Absolute Eosinophils 0.12 Absolute Basophils 0.03 D-Dimer Sodium 132 L Potassium 3.9 Chloride 96 L Carbon Dioxide 29.1 Anion Gap 6.9 BUN 16 Creatinine 1.1 H Estimated GFR/1.73 m2 47.32 Glucose 210 H Calcium 8.6 Magnesium 1.7 L Total Bilirubin 1.5 H AST 24 ALT 26 Alkaline Phosphatase 153 H Troponin I < 50 NT-Pro-B Natriuret Pep 337 H Total Protein 6.9 Albumin 2.8 L Urine Color Urine Clarity Urine pH Ur Specific [place] Urine Protein Urine Ketones Urine Blood Urine Nitrite Urine Bilirubin Urine Urobilinogen Ur Leukocyte Esterase Urine RBC Urine WBC Ur Epithelial Cells Urine Crystals Urine Bacteria Urine Mucus Ur Culture Indicated? Urine Glucose COVID-19 Source Nasal/Nares SARS-CoV-2 (PCR) Negative 02/17/21 02/17/21 02/17/21 15:36 15:55 17:23 WBC RBC Hgb Hct MCV MCH MCHC RDW Plt Count MPV Immature Gran % Neutrophils % Lymphocytes % Monocytes % Eosinophils % Basophils % Nucleated RBC % Absolute Neutrophils Absolute Lymphocytes Absolute Monocytes Absolute Eosinophils Absolute Basophils D-Dimer 1808 H Sodium Potassium Chloride Carbon Dioxide Anion Gap BUN Creatinine Estimated GFR/1.73 m2 Glucose Calcium Magnesium Total Bilirubin AST ALT Alkaline Phosphatase Troponin I < 50 NT-Pro-B Natriuret Pep Total Protein Albumin Urine Color Emilie Urine Clarity Sl Cloudy Urine pH 5.5 Ur Specific [place] 1.025 Urine Protein 30 H Urine Ketones 15 H Urine Blood Trace-intact H Urine Nitrite Positive H Urine Bilirubin Negative Urine Urobilinogen 1.0 H Ur Leukocyte Esterase Moderate H Urine RBC Urine WBC >50 H Ur Epithelial Cells Many Urine Crystals Not Applicable Urine Bacteria Many Urine Mucus Heavy Ur Culture Indicated? No/Sq. Contamination Urine Glucose Negative COVID-19 Source SARS-CoV-2 (PCR) Last Vital Signs Temp 36.0 C L 02/17/21 18:14 Pulse 92 H 02/17/21 18:14 Resp 20 02/17/21 18:14 BP 156/75 H 02/17/21 18:14 Pulse Ox 94 02/17/21 18:14
[2021-02-17] MEDS: guaiFENesin 600 MG TABCR PO (19:50)
[2021-02-17] MEDS: MAGNESIUM SULFATE 1 GM/100 ML BAG IVPB (19:51)
[2021-02-17 20:54] LABS: TSH 0.95 uIU/mL (0.36-3.74)
[2021-02-17] MEDS: DOXYCYCLINE 100 MG in Normal Saline 100 ML IVPB (20:59)
[2021-02-17 21:13] LABS: Procalcitonin 0.1 ng/mL
[2021-02-17] MEDS: Insulin Glargine 300 UNITS/3 ML PEN 38 UNITS SC (21:13)
[2021-02-17 21:26] LABS: Glucose 488 mg/dL (74-106)
[2021-02-17] MEDS: Insulin Aspart 300 UNITS/3 ML PEN SC (21:43)
[2021-02-17] MEDS: Aspirin E.C. 81 MG TABEC PO (22:09)
[2021-02-17] MEDS: Donepezil 5 MG TAB PO (22:09)
[2021-02-17] MEDS: Oxybutynin-CR 5 MG TABCR PO (22:09)
[2021-02-17] MEDS: Nortriptyline 10 MG CAP PO (22:19)
[2021-02-17 23:24] LABS: Bilirubin Negative (Negative); Blood Negative (Negative); Clarity Clear (Clear); Glucose >=1000 mg/dL (Negative); Ketones Negative (Negative); Leukocyte Esterase Negative (Negative); Nitrite Negative (Negative); Urobilinogen 0.2 EU/dL (Up TO 0.2); pH 5.5 (5-8)
[2021-02-18] MEDS: Insulin Aspart 300 UNITS/3 ML PEN 15 UNITS SC (00:33)
[2021-02-18 00:45] LABS: Glucose 391 mg/dL (74-106)
[2021-02-18 03:36] VITALS: BP 125/80; PULSE 90; RESP 22; TEMP 36.5; O2SAT 94
[2021-02-18 06:38] VITALS: PULSE 87
[2021-02-18 07:01] LABS: Abs Immature Grans 0.05 10^3/uL (0.0-0.06); Absolute Basophil Count 0.02 10^3/uL (0.0-0.2); Absolute Lymphocyte Count 0.91 10^3/uL (1.2-3.4); Absolute Monocyte Count 0.39 10^3/uL (0.1-0.8); Basophils % 0.3; HCT 36.7 % (36.0-46.0); HGB 12.3 g/dL (11.2-15.7); Immature Grans % 0.8; Lymphocytes % 15.4; MCH 29.9 pg (27.0-33.0); MCHC 33.5 % (32.0-36.0); MCV 89.1 fL (80-95); MPV 10.7 fL (8.0-11.0); Monocytes % 6.6; Neutrophils % 76.9; Nucleated RBC 0 %; Platelet Count 256 10^3/uL (130-400); RBC 4.12 10^6/uL (3.93-5.22)
[2021-02-18 07:02] LABS: Absolute Neutrophil Count 4.54 10^3/uL (1.2-6.7)
[2021-02-18 07:04] LABS: Anion Gap 6.5 mmol/L (3-11); BUN 19 mg/dL (7-18); CO2 30.5 mmol/L (21.0-32.0); CREATININE 1.1 mg/dL (0.55-1.02); Calcium 8.9 mg/dL (8.5-10.1); Chloride 98 mmol/L (98-107); Estimated GFR 47.32 (mL/min/1.73m2); Glucose 274 mg/dL (74-106); Magnesium 2.5 mg/dL (1.8-2.4); Potassium 4.3 mmol/L (3.5-5.1); Sodium 135 mmol/L (136-145)
[2021-02-18 07:12] VITALS: BP 144/73; PULSE 74; RESP 18; TEMP 36.2; O2SAT 96
[2021-02-18] MEDS: guaiFENesin 600 MG TABCR PO (07:45)
[2021-02-18] MEDS: predniSONE 20 MG TAB 40 MG PO (07:45)
[2021-02-18] MEDS: Isosorbide Mononitrate 30 MG TABCR PO (07:45)
[2021-02-18] MEDS: Rosuvastatin 5 MG TAB PO (07:45)
[2021-02-18] MEDS: Pantoprazole 40 MG TABCR PO (07:45)
[2021-02-18] MEDS: Metoprolol 12.5 MG TAB 25 MG PO (07:45)
[2021-02-18] MEDS: Pregabalin 50 MG CAP PO (07:45)
[2021-02-18] MEDS: Enoxaparin 40 MG/0.4 ML SYR SC (07:47)
[2021-02-18] MEDS: Insulin Glargine 300 UNITS/3 ML PEN 45 UNITS SC (07:47)
[2021-02-18] MEDS: Insulin Aspart 300 UNITS/3 ML PEN SC ×3 (07:48→12:16)
[2021-02-18] MEDS: DOXYCYCLINE 100 MG in Normal Saline 100 ML IVPB (09:22)
[2021-02-18] MEDS: Normal Saline 500 ML 30 ML IV (09:22)
[2021-02-18] MEDS: Normal Saline Flush 10 ML SYR IVP (09:23)
--- NOTE | 2021-02-18 10:17 | IN_ITS ---
Date of service: 02/19/21 Time of Service: 10:17 PT Notes Visit Reasons: Lung Mass,Hypoxia Physical Therapy Inpatient Initial Evaluation Date: 02/18/2021 Referring Doctor: Jodi Perez MD PT Orders: PT CONSULT: Limited ability Precautions: Fall. Standard. Activity as tolerated. Patient Profile/Admitting Diagnosis: Sonia is an 85-year-old female with Alzheimer's type dementia who presented to the ED on 02/18/2020 due to shortness of breath and cough for the past three weeks prior to admission. He is diagnosed with pulmonary edema, COPD with hypoxia, mass of lung, and hypomagnesemia. PMHX: All Active Problems (Updated 02/17/21 @ 20:39 by Jodi Perez MD) Discharge planning issues (Acute) Pulmonary edema (Acute) COPD with hypoxia (Acute) Pneumonia (Acute) Mass of right lung (Acute) 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 Pylori DVT prophylaxis (Acute) Status post total knee replacement, right (Acute) DOS: 06/26/2018 Dr. Johnny Johnson of behavior change (Acute) Esophagitis (Acute 12/13/16) Hypomagnesemia (Acute) Dehydration (Acute) Transient global amnesia (Acute) Delirium (Acute) HEAD (dyspnea on exertion) (Acute) Chest pain at rest (Acute) Status post total knee replacement (Acute) ASCVD (arteriosclerotic cardiovascular disease) (Acute) Cardiloogy Stefan Munguia Loss of equilibrium (Acute) Carpal tunnel syndrome on right (Acute) s/p ECTR DOS: 03/04/20 Derangement of left acromioclavicular joint (Acute) Obesity (Chronic) Heart murmur (Acute) History of rheumatic fever (Acute) Tendonitis of left rotator cuff (Acute) Colitis (Acute) resolved. JEMIMA (acute kidney injury) (Acute) Primary osteoarthritis of right knee (Chronic) Tinnitus of both ears (Acute 09/26/14) Syncope (Acute 05/15/14) neg w/u Skin lesion of left ear (Acute 10/31/15) Sensorineural hearing loss, bilateral (Acute 09/13/13) Sciatica (Acute 02/19/11) Primary osteoarthritis involving multiple joints (Acute 10/30/14) Positive cardiac stress test (Acute 06/30/17) has sched cardiac cath 07/[address] Arnett. Diverticulitis of colon (Acute 02/19/11) RECURRENT Diabetic neuropathy (Chronic 01/24/14) peripheral neuropathy Atherosclerosis of [place] coronary artery of [place] heart with angina pectoris (Acute) UNSTABLE ANGINA, CATH 01/2011 JOHN to OM1 EF 65%. MPI 06/10/11 no ischemia, sm septal defect, nl EF Angina at rest (Acute 02/19/11) very rare, follow with Dr. Fiore Chest pain (Acute 04/28/14) Medical History (Updated 02/17/21 @ 20:39 by Jodi Perez MD) Alzheimer's dementia CAD (coronary artery disease) Chronic kidney disease, stage III (moderate) Diabetes mellitus with neuropathy goal 7.5; insulin begun 07/2016 Edema (09/05/15) nl EF, proably venous Essential hypertension (07/27/12) goal 140/90 Fibromyalgia (12/18/14) Dx 12/[address] Kraft Rheum [facility] [place] Gastritis, chronic (12/13/16) with gastric polyps. (12/13/16 report of operation). NC GERD (gastroesophageal reflux disease) H/O diverticulitis of colon Hearing loss of both ears Hyperlipidemia (02/19/11) LDL baseline 127 intol ator, simv 20mg Hypertension Mild obstructive sleep apnea (06/29/20) Old myocardial infarction 1999 Osteopenia (02/19/11) T -1.6 Osteoporosis Rectal bleed Urinary incontinence (06/05/14) Sacral stimulator: [place] Stokes in [place] Surgical History (Updated 02/17/21 @ 20:39 by Jodi Perez MD) Postsurgical percutaneous transluminal coronary angioplasty status 2008 S/P right knee arthroscopy Dr. Galloway >10 years Status post implantation of urinary electronic stimulator device Tonsillectomy Social History/Home Situation: Patient lives with friend Pat in a private home with a ramp to enter. Independent with all aspects of ADLs prior to admission. Equipment Owned/DME: None Subjective: Denies headache, chest pain, and lightheadedness. Initially appeared short of breath during the first 20 steps but was okay the rest of the walk. Objective: General Observation: Seated on bedside chair. IV in R UE. Oxygen supplementation on 3 L/minute via NC. Mental Status: Alert and oriented as to person and place. Able to pay attention, focus, and respond appropriately. Pain: Denies Vital Signs: Initially desaturated to 81% on 3L for the first 20 steps needing standing rest but was able to bounce back up to 96 in about 10 seconds. Was saturating above 90% for the rest of the walk ROM: Right Upper Extremity: Shoulder Flexion WFL. Shoulder abduction WFL. Elbow flexion WFL. Wrist flexion WFL. Functional opening and closing of hand WFL. Left Upper Extremity: Shoulder Flexion WFL. Shoulder abduction WFL. Elbow flexion WFL. Wrist flexion WFL. Functional opening and closing of hand WFL. Right Lower Extremity: Hip flexion WFL. Hip abduction WFL. Knee flexion WFL. Ankle dorsiflexion WFL. Ankle plantarflexion WFL. Left Lower Extremity: Hip flexion WFL. Hip abduction WFL. Knee flexion WFL. Ankle dorsiflexion WFL. Ankle plantarflexion WFL. Strength: Right Upper Extremity: Shoulder flexors 4/5. Shoulder abductors 4/5. Elbow flexors 5/5. Elbow extensors 5/5. 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 Left Upper Extremity: Shoulder flexors 4/5. Shoulder abductors 4/5. Elbow flexors 5/5. Elbow extensors 5/5. 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 Right Lower Extremity: Hip flexors 4/5. Hip abductors 5/5. Knee flexors 4-/5. Knee extensors 4-/5. Ankle dorsiflexors 4-/5. Ankle plantarflexors 5/5. Left Lower Extremity: Hip flexors 4/5. Hip abductors 5/5. Knee flexors 5/5. Knee extensors 4/5. Ankle dorsiflexors 4-/5. Ankle plantarflexors 5/5. Bed Mobility/Transfers: Rolling independent Supine to sit independent Sit to supine independent Sit to stand independent Stand to sit independent Bed to reclining chair independent Gait: Instructed patient with level surface ambulation of 600 feet requiring supervision assist. Required 2 standing rests due to decrease in oxygen saturation to 81% on 3 liters. Resaturated back to 91% in about 10 seconds. Denies headache, shortness of breath, nor chest pain. Was able to tolerate no oxygen supplementation after the walk with saturation level straying at above 95%. Balance: Static Sitting: Normal Dynamic Sitting: Normal Static Standing: Good Dynamic Standing: Good Special Tests: Mobility Limitations Standardized Measure [facility] AM-PAC 6 clicks Basic Mobility Inpatient Short Form: Raw Score: 24 CMS Score: 0% deficit Informed Consent/Education: Patient was instructed in purpose of PT consult and plan of care. Agreeable to proceed with established PT POC to achieve personal goals. Assessment: Sonia is back at baseline mobility level with no assistive device needed. No PT services needed at this time. She will have the support of her friend Loulou as previously. Goals: N/A. No skilled services needed at this time. Plan of Care/Treatment Plan: N/A. No skilled services needed at this time. DISCHARGE RECOMMENDATIONS: [X] Home with no services. Home when medically cleared by hospitalist. [] Home with services [specify] [] Home with outpatient PT [] [] SNF for continued rehabilitation [] [] [facility] Sp[facility] [employer] [facility] Operator Care [] [] SNF versus LTC based on ability to participate and progress [] TREATMENT CODE/TIME: 30744 x 27 minutes beginning at 10:17 AM. Thank you for the opportunity to participate in the care of this patient. Jenna Burrows PT, DPT, CLT [facility] [place], [place]
[2021-02-18 10:47] VITALS: PULSE 82
--- NOTE | 2021-02-18 11:07 | INITIAL_ITS ---
- If Service Date Differs Date of service: 02/18/21 Time of Service: 11:07 Care Management Initial Assess REASON FOR HOSPITALIZATION:: Lung Mass, Pulmonary Edema, COPD with hypoxia PAST MEDICAL HISTORY/PAST SURGICAL HISTORY:: All Active Problems (Updated 06/05 @ 20:39 by Jodi Perez MD). Discharge planning issues (Acute). Pulmonary edema (Acute). COPD with hypoxia (Acute). Pneumonia (Acute). Mass of right lung (Acute). Cataplexy (Acute). Periodic limb movement sleep disorder (Acute 06/29/20). Fall (on) (from) other stairs and steps, initial encounter (Acute). Memory impairment (Acute). Heartburn (Acute). Elevated blood sugar (Acute). Type 2 diabetes mellitus (Chronic). Diabetic neuropathy (Chronic). Tinnitus (Chronic). Sciatica (Chronic). Syncope (Acute 04/28/14). Gastroesophageal reflux disease (Acute 02/19/11). EGD 12/13/16 neg for Ridley's, neg for H. Pylori. DVT prophylaxis (Acute). Status post total knee replacement, right (Acute). DOS: 06/26/2018. Dr. Turner. Spell of behavior change (Acute). Esophagitis (Acute 12/13/16). Hypomagnesemia (Acute). Dehydration (Acute). Transient global amnesia (Acute). Delirium (Acute). HEAD (dyspnea on exertion) (Acute). Chest pain at rest (Acute). Status post total knee replacement (Acute). ASCVD (arteriosclerotic cardiovascular disease) (Acute). Cardiloogy Stefan Munguia. Loss of equilibrium (Acute). Carpal tunnel syndrome on right (Acute). s/p ECTR. DOS: 03/04/20. Derangement of left acromioclavicular joint (Acute). Obesity (Chronic). Heart murmur (Acute). History of rheumatic fever (Acute). Tendonitis of left rotator cuff (Acute). Colitis (Acute). resolved. JEMIMA (acute kidney injury) (Acute). Primary osteoarthritis of right knee (Chronic). Tinnitus of both ears (Acute 09/26/14). Syncope (Acute 05/15/14). neg w/u. Skin lesion of left ear (Acute 10/31/15). Sensorineural hearing loss, bilateral (Acute 09/13/13). Sciatica (Acute 02/19/11). Primary osteoarthritis involving multiple joints (Acute 10/30/14). Positive cardiac stress test (Acute 06/30/17). has sched cardiac cath 07/[address] Arnett. Diverticulitis of colon (Acute 02/19/11). RECURRENT. Diabetic neuropathy (Chronic 01/24/14). peripheral neuropathy. Atherosclerosis of [place] coronary artery of [place] heart with angina pectoris (Acute). UNSTABLE ANGINA, CATH 01/2011 JOHN to OM1 EF 65%. MPI 06/10/11 no ischemia, sm septal defect, nl EF. Angina at rest (Acute 02/19/11). very rare, follow with Dr. Fiore. Chest pain (Acute 04/28/14). Medical History (Updated 02/17/21 @ 20:39 by Jodi Perez MD). Alzheimer's dementia. CAD (coronary artery disease). Chronic kidney disease, stage III (moderate). Diabetes mellitus with neuropathy. goal 7.5; insulin begun 07/2016. Edema (09/05/15). nl EF, proably venous. Essential hypertension (07/27/12). goal 140/90. Fibromyalgia (12/18/14). Dx 12/[address] Kraft Rheum [facility] [place] 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 (12/13/16 report of operation). NC. GERD (gastroesophageal reflux disease). H/O diverticulitis of colon. Hearing loss of both ears. Hyperlipidemia (02/19/11). LDL baseline 127. intol ator, simv 20mg. Hypertension. Mild obstructive sleep apnea (06/29/20). Old myocardial infarction. 1999. Osteopenia (02/19/11). T -1.6. Osteoporosis. Rectal bleed. Urinary incontinence (06/05/14). Sacral stimulator: Dr Stokes in [facility]. Surgical History (Updated 02/17/21 @ 20:39 by Jodi Perez MD). Postsurgical percutaneous transluminal coronary angioplasty status. 2008. S/P right knee arthroscopy. Dr. Galloway. >10 years. Status post implantation of urinary electronic stimulator device. Tonsillectomy PREVIOUS FUNCTIONAL STATUS/SOCIAL/FAMILY SUPPORTS:: Sonia resides in [facility] with her friend Maureen. Patient has Alzheimers/dementia, DPOA/Caregiver is Maureen Hernandez ([phone]) ADVANCE DIRECTIVES:: On File, HCA is Maureen Hernandez Has patient been provided with info about the portal/API?: Yes Did the patient sign up for the portal?: Yes (Prior to admission) CODE STATUS:: Full Code INSURANCE COVERAGE / FINANCIAL ISSUES:: Within3 [facility]. Medicare CURRENT HOME/COMMUNITY SERVICES/EQUIPMENT:: [facility] PRIMARY CARE PHYSICIAN:: Savanna Guillen PATIENT/FAMILY EDUCATION NEEDS:: Review discharge instructions, limitations and plan to follow up with community providers. ask me three. TRANSPORTATION:: Via private car with friend Loulou at time of discharge. PLAN:: Sonia will discharge home when medically cleared by provider with no new services. Sonia will follow up with pulmonology and community providers. Paliative consult ordered. Sonia will transport via friend Maureen.
--- NOTE | 2021-02-18 11:56 | W.PULMCON ---
General Date Of Service Date of service: 02/18/21 Time of Service: 11:00 Reason for Consult: Lung mass Assessment and Plan Assessment and plan (1) Pulmonary edema: Status: Acute (2) Mass of right lung: Status: Acute (3) Mediastinal lymphadenopathy: Status: Acute (4) History of rheumatic fever: Status: Acute (5) Heart murmur: Status: Acute (6) RANDEE (obstructive sleep apnea): Status: Chronic (7) Pneumonia: Status: Acute Assessment and plan: This is a 85 yo female with dementia, rheumatic fever and CAD s/p PCI who was admitted for hypoxia and shortness of breath. She was treated with antibiotic and Lasix and has significantly improved. The right lung mass is concerning for a malignant process, particularly given the widespread mediastinal LAD. It is possible that this could be an infectious or rheumatologic process given its appearance so these will need to be ruled out. We will treat her for a pneumonia and start the work up for the mass. I will see her in my clinic in 6 weeks with a follow up scan to assess whether the mass has changed in size. If it has not changed or gotten larger despite pneumonia treatment and other processes have been ruled out she will need a biopsy of the mass as well as the lymph nodes for diagnostic testing. The mass is very vascular in appearance on the scan so I would not want to pursue blind biopsies here at [facility], thus IP at [facility] will be involved. The patient said she would at least be interested in the diagnostic testing to know for sure what it is, if in fact we need to do this. Lung mass - will treat for pnuemonia - chest CT in 6 weeks followed by an outpatient visit with la - ESTHER, ANCA testing - urine antigens for histo, blasto, strep pneumo and legionella - Fungitell testing - sputum culture Pneumonia - can switch ceftraixone and azithromycin to PO Levaquin for a total 7 day course - diagnostics as above RANDEE - continue home regimen History of Present Illness Narrative: This is an 85 yo female who holds a diagnosis of COPD (no PFT's and minimal smoking history), dementia, prior [place] s/p PCI who presented with 3 weeks of cough and worsening shortness of breath. She was hypoxic on presentation to the ER and required 2L NC so was admitted. She was found to be volume overloaded and so was treated with diuretic therapy. There was also a concern for a pneumonia and was given antibiotics. She had a chest CT performed that found a right parabronchial mass with associated lymph node enlargments as follows: 4R-1.2cm, 4L-2.3cm, 5/6-2cm, 7-1.5cm, 11R-1.3cm, 11L-1cm. I was consulted to asses the lung mass. Today she is feeling much better and is on room air. She has diuresed appropriately and is 1L negative since last night. She feels as though the cough is improving as is her shortness of breath. She does tell me that she has noticed her breathing worsening over the last couple of years and she attributed this to getting older. She has approximately a 10yr smoking history and quit in her early 30's. She has never had cancer, nor does it run in her family that she knows of. She denies hemoptysis. For her COPD she has an as needed albuterol inhaler at home. 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 Pylori DVT prophylaxis (Acute) Status post total knee replacement, right (Acute) DOS: 06/26/2018 Dr. Johnny Johnson of behavior change (Acute) Esophagitis (Acute 12/13/16) Hypomagnesemia (Acute) Dehydration (Acute) Transient global amnesia (Acute) HEAD (dyspnea on exertion) (Acute) Chest pain at rest (Acute) Status post total knee replacement (Acute) ASCVD (arteriosclerotic cardiovascular disease) (Acute) Cardiloogy Stefan Dr Storms Loss of equilibrium (Acute) Carpal tunnel syndrome on right (Acute) s/p ECTR DOS: 03/04/20 Derangement of left acromioclavicular joint (Acute) Obesity (Chronic) Heart murmur (Acute) History of rheumatic fever (Acute) Tendonitis of left rotator cuff (Acute) Colitis (Acute) resolved. Primary osteoarthritis of right knee (Chronic) Tinnitus of both ears (Acute 09/26/14) Skin lesion of left ear (Acute 10/31/15) Sensorineural hearing loss, bilateral (Acute 09/13/13) Sciatica (Acute 02/19/11) Primary osteoarthritis involving multiple joints (Acute 10/30/14) Diverticulitis of colon (Acute 02/19/11) RECURRENT Diabetic neuropathy (Chronic 01/24/14) peripheral neuropathy Medical History (Updated 02/18/21 @ 12:14 by Gracia Colunga MD) JEMIMA (acute kidney injury) Alzheimer's dementia Angina at rest (02/19/11) very rare, follow with Dr. Fiore Atherosclerosis of [place] coronary artery of [place] heart with angina pectoris UNSTABLE ANGINA, CATH 01/2011 JOHN to OM1 EF 65%. MPI 06/10/11 no ischemia, sm septal defect, nl EF CAD (coronary artery disease) Chest pain (04/28/14) Chronic kidney disease, stage III (moderate) Diabetes mellitus with neuropathy goal 7.5; insulin begun 07/2016 Edema (09/05/15) nl EF, proably venous Essential hypertension (07/27/12) goal 140/90 Fibromyalgia (12/18/14) Dx 12/[address] Kraft Rheum [facility] Gastritis, chronic (12/13/16) with gastric polyps. (12/13/16 report of operation). NC GERD (gastroesophageal reflux disease) H/O diverticulitis of colon Hearing loss of both ears Hyperlipidemia (02/19/11) LDL baseline 127 intol ator, simv 20mg Hypertension Mild obstructive sleep apnea (06/29/20) Old myocardial infarction 1999 Osteopenia (02/19/11) T -1.6 Osteoporosis Positive cardiac stress test (06/30/17) has sched cardiac cath 07/[address] Arnett. Rectal bleed Syncope (05/15/14) neg w/u Urinary incontinence (06/05/14) Sacral stimulator: Dr Stokes in [facility] Surgical History (Updated 02/18/21 @ 12:14 by Gracia Colunga MD) Colonoscopy - MAC (12/13/16) Coronary Stent (07/12/17) [facility]. Kenyon Arnett MD report date . procedures: coronary angiography,left heart catherization,coronary stent insertion. x2 EGD - MAC (12/13/16) Postsurgical percutaneous transluminal coronary angioplasty status 2008 S/P right knee arthroscopy Dr. Galloway >10 years Status post implantation of urinary electronic stimulator device Tonsillectomy Family History (Updated 02/17/21 @ 20:39 by Jodi Perez MD) Father , [place] Heart disease Hypertension Sister Stomach cancer Mother , at age 102 Hypertension Paternal Grandfather Stroke Social History (Updated 02/17/21 @ 20:40 by Jodi Perez MD) Smoking/Tobacco Use Status: Former Tobacco Use Quit Date: 02/15/68 Tobacco: How many years used: 18 Smoking risk assessment performed?: Yes Alcohol Intake: current Alcohol Intake frequency: holidays/special occasions only Alcohol type: wine Drug use: Never Substance use type: does not use Household members: friend(s) and other Communication Needs: Corrective Lenses Current gender identity: female What type of physical activity do you participate in: none Seatbelt use: always Drive intox or ride w/intox tow car driver: No Working smoke detector in home: Yes Fire extinguisher in home: Yes Carbon monox detector in home: Yes Do you feel safe at home: Yes Do you feel safe in your relationship?: Yes Visit Medication and Allergies Active Medications Generic Name Dose Route Start Last Admin Trade Name Freq PRN Reason Stop Dose Admin Acetaminophen 0 mg 02/17/21 17:23 Acetaminophen 325 Mg Tab PO Q4H PRN PRN Al Hydrox/Mg Hydrox/Simethicone 30 ml 02/17/21 17:23 Mylanta Suspension 30 Ml Cup PO Q2H PRN PRN Albuterol Sulfate 2.5 mg 02/17/21 17:23 Albuterol 2.5 Mg/3 Ml Inh Soln Vial UPD Q2H PRN PRN Albuterol/Ipratropium 3 ml 02/17/21 17:23 Albuterol/Ipratropium 3 Ml Upd Vial UPD Q6H PRN PRN Aspirin 81 mg 02/17/21 22:00 02/17/21 22:09 Aspirin E.C. 81 Mg Tabec PO 81 mg HS ISAIAS Administration Benzonatate 100 mg 02/17/21 20:41 Benzonatate 100 Mg Cap PO TID PRN PRN Dextrose 0 gm 02/17/21 18:31 Glucose 40% Oral Solution 15 Gm/37.5 Gm Tube PO DIRECTED PRN Dextrose/Water 0 gm 02/17/21 18:31 Dextrose 50%-Water 25 Gm/50 Ml Syr IVP DIRECTED PRN Diclofenac Sodium 2 gm 02/18/21 08:30 02/18/21 09:35 Diclofenac 1% Gel 100 Gm Tube TP Not Given QID ISAIAS Dimethicone/Zinc Oxide 0 gm 02/17/21 17:23 Karthik Protect Cream 142 Gm Tube TP PRN PRN Docusate Sodium 100 mg 02/17/21 17:23 Docusate Sodium 100 Mg Cap PO TID PRN PRN Donepezil HCl 5 mg 02/17/21 22:00 02/17/21 22:09 Donepezil 5 Mg Tab PO 5 mg HS ISAIAS Administration Enoxaparin Sodium 40 mg 02/18/21 08:30 02/18/21 07:47 Enoxaparin 40 Mg/0.4 Ml Syr SC 40 mg DAILY ISAIAS Administration Guaifenesin 600 mg 02/17/21 20:00 02/18/21 07:45 Guaifenesin 600 Mg Tabcr PO 600 mg BID ISAIAS Administration Sodium Chloride 500 mls @ 0 mls/hr 02/17/21 13:21 02/18/21 09:22 Saline 500ml Bag IV 30 mls/hr PRN PRN Administration As Directed Doxycycline Hyclate 100 mg/ 100 mls @ 100 mls/hr 02/17/21 20:00 02/18/21 09:22 Sodium Chloride IVPB 100 mls/hr Q12H ISAIAS Administration Ceftriaxone Sodium/Dextrose 1 gm in 50 mls @ 100 mls/hr 02/18/21 18:00 Rocephin IVPB Q24H [facility] IV Miscellaneous Supplies 1 each 02/17/21 17:30 Iv Access IV DIRECTED [facility] Insulin Aspart 0 units 02/17/21 22:00 02/18/21 07:48 Insulin Aspart 300 Units/3 Ml Pen SC 12 units 0800,1200,1700,2200 [facility] Administration Protocol Insulin Aspart 1 - 20 units 02/18/21 08:00 02/18/21 09:34 Insulin Aspart 300 Units/3 Ml Pen SC Not Given 0800,1200,1700 [facility] Insulin Glargine 45 units 02/18/21 08:30 02/18/21 07:47 Insulin Glargine 300 Units/3 Ml Pen SC 45 units BID [facility] Administration Isosorbide Mononitrate 30 mg 02/18/21 08:30 02/18/21 07:45 Isosorbide Mononitrate 30 Mg Tabcr PO 30 mg DAILY [facility] Administration Loperamide HCl 4 mg 02/17/21 20:09 Loperamide 2 Mg Cap PO TID PRN PRN Magnesium Hydroxide 30 ml 02/17/21 17:23 Milk Of Magnesia 30 Ml Cup PO DAILY PRN PRN Metoprolol Tartrate 25 mg 02/18/21 08:30 02/18/21 07:45 Metoprolol 12.5 Mg Tab PO 25 mg BID [facility] Administration Nitroglycerin 0.4 mg 02/17/21 20:09 Nitroglycerin 0.4 Mg Tab SL Q5 MIN PRN X3 PRN chest pain Nortriptyline HCl 10 mg 02/17/21 22:00 02/17/21 22:19 Nortriptyline 10 Mg Cap PO 10 mg HS [facility] Administration Oxybutynin Chloride 5 mg 02/17/21 22:00 02/17/21 22:09 Oxybutynin-Cr 5 Mg Tabcr PO 5 mg HS [facility] Administration Pantoprazole Sodium 40 mg 02/18/21 07:30 02/18/21 07:45 Pantoprazole 40 Mg Tabcr PO 40 mg DAILY@0730 [facility] Administration Patient's Own 1 each 02/19/21 08:30 Medication (Turmeric PO 400 Mg Capsule) DAILY [facility] Prednisone 40 mg 02/18/21 08:30 02/18/21 07:45 Prednisone 20 Mg Tab PO 40 mg DAILY [facility] Administration Pregabalin 50 mg 02/18/21 08:30 02/18/21 07:45 Pregabalin 50 Mg Cap PO 50 mg BID [facility] Administration Rosuvastatin Calcium 5 mg 02/18/21 08:30 02/18/21 07:45 Rosuvastatin 5 Mg Tab PO 5 mg DAILY ISAIAS Administration Sodium Chloride 0 ml 02/17/21 17:23 Normal Saline Flush 10 Ml Syr IVP PRN PRN Allergies Penicillins Allergy (Severe, Verified 02/17/21 13:22) skin rash atorvastatin Adverse Reaction (Intermediate, Verified 02/17/21 13:22) muscle aches metformin Adverse Reaction (Intermediate, Verified 02/17/21 13:22) Diarrhea Exam Const General: no acute distress Nutritional Appearance: well nourished [facility] Head: normocephalic Ears: external ears normal and no periauricular adenopathy General nose exam: nasal mucous membranes and turbinates normal Face and sinus: sinuses nontender Mouth: oropharynx normal and moist mucous membranes Teeth and gingiva: dentition normal Eyes General: appearance normal, both eyes and all related structures Pupils: PERRL Neck Neck: normal visual inspection and no lymphadenopathy Chest Chest: normal inspection of the chest Resp Effort & Inspection: normal respiratory effort Auscultation: rales on the right, no rhonchi and no wheezes Cardio Rate: regular rate Rhythm: regular rhythm Heart Sounds: S1 normal, S2 normal and murmur systolic Pulses: radial pulses present bilaterally GI Inspection: normal to inspection Palpation: soft Skin General skin exam: no rashes or lesions noted Neuro General: patient alert, patient awake and patient oriented x3 Extrem General: no clubbing, cyanosis or edema Psych Mental Status: mental status grossly normal Affect: normal affect Attitude: cooperative Results Last Vital Signs Temp 36.2 C L 02/18/21 07:12 Pulse 82 02/18/21 10:47 Resp 18 02/18/21 07:12 BP 144/73 H 02/18/21 07:12 Pulse Ox 96 02/18/21 07:12 Labs Result diagrams: 02/18/21 06:10 02/18/21 06:10 Labs: Laboratory Results - last 24 hr 02/17/21 02/17/21 02/17/21 13:30 13:47 13:47 WBC 11.36 H RBC 4.07 Hgb 12.3 Hct 35.9 L MCV 88.2 MCH 30.2 MCHC 34.3 RDW 13.2 Plt Count 254 MPV 10.4 Immature Gran % 0.4 Neutrophils % 86.0 Lymphocytes % 4.8 Monocytes % 7.4 Eosinophils % 1.1 Basophils % 0.3 Nucleated RBC % 0 Absolute Neutrophils 9.77 H Absolute Lymphocytes 0.55 L Absolute Monocytes 0.84 H Absolute Eosinophils 0.12 Absolute Basophils 0.03 D-Dimer Sodium 132 L Potassium 3.9 Chloride 96 L Carbon Dioxide 29.1 Anion Gap 6.9 BUN 16 Creatinine 1.1 H Estimated GFR/1.73 m2 47.32 Glucose 210 H Hemoglobin A1c Calcium 8.6 Magnesium 1.7 L Total Bilirubin 1.5 H AST 24 ALT 26 Alkaline Phosphatase 153 H Troponin I < 50 NT-Pro-B Natriuret Pep 337 H Total Protein 6.9 Albumin 2.8 L Procalcitonin TSH Urine Color Urine Clarity Urine pH Ur Specific [place] Urine Protein Urine Ketones Urine Blood Urine Nitrite Urine Bilirubin Urine Urobilinogen Ur Leukocyte Esterase Urine RBC Urine WBC Ur Epithelial Cells Urine Crystals Urine Bacteria Urine Mucus Ur Culture Indicated? Urine Glucose COVID-19 Source Nasal/Nares SARS-CoV-2 (PCR) Negative 02/17/21 02/17/21 02/17/21 15:36 15:55 17:23 WBC RBC Hgb Hct MCV MCH MCHC RDW Plt Count MPV Immature Gran % Neutrophils % Lymphocytes % Monocytes % Eosinophils % Basophils % Nucleated RBC % Absolute Neutrophils Absolute Lymphocytes Absolute Monocytes Absolute Eosinophils Absolute Basophils D-Dimer 1808 H Sodium Potassium Chloride Carbon Dioxide Anion Gap BUN Creatinine Estimated GFR/1.73 m2 Glucose Hemoglobin A1c Calcium Magnesium Total Bilirubin AST ALT Alkaline Phosphatase Troponin I < 50 NT-Pro-B Natriuret Pep Total Protein Albumin Procalcitonin TSH Urine Color Emilie Urine Clarity Sl Cloudy Urine pH 5.5 Ur Specific [place] 1.025 Urine Protein 30 H Urine Ketones 15 H Urine Blood Trace-intact H Urine Nitrite Positive H Urine Bilirubin Negative Urine Urobilinogen 1.0 H Ur Leukocyte Esterase Moderate H Urine RBC Urine WBC >50 H Ur Epithelial Cells Many Urine Crystals Not Applicable Urine Bacteria Many Urine Mucus Heavy Ur Culture Indicated? No/Sq. Contamination Urine Glucose Negative COVID-19 Source SARS-CoV-2 (PCR) 02/17/21 02/17/21 02/17/21 17:25 17:25 21:10 WBC RBC Hgb Hct MCV MCH MCHC RDW Plt Count MPV Immature Gran % Neutrophils % Lymphocytes % Monocytes % Eosinophils % Basophils % Nucleated RBC % Absolute Neutrophils Absolute Lymphocytes Absolute Monocytes Absolute Eosinophils Absolute Basophils D-Dimer Sodium Potassium Chloride Carbon Dioxide Anion Gap BUN Creatinine Estimated GFR/1.73 m2 Glucose 488 H D Hemoglobin A1c Calcium Magnesium Total Bilirubin AST ALT Alkaline Phosphatase Troponin I NT-Pro-B Natriuret Pep Total Protein Albumin Procalcitonin 0.1 TSH 0.95 Urine Color Urine Clarity Urine pH Ur Specific [place] Urine Protein Urine Ketones Urine Blood Urine Nitrite Urine Bilirubin Urine Urobilinogen Ur Leukocyte Esterase Urine RBC Urine WBC Ur Epithelial Cells Urine Crystals Urine Bacteria Urine Mucus Ur Culture Indicated? Urine Glucose COVID-19 Source SARS-CoV-2 (PCR) 02/17/21 02/18/21 02/18/21 22:20 00:32 06:10 WBC RBC Hgb Hct MCV MCH MCHC RDW Plt Count MPV Immature Gran % Neutrophils % Lymphocytes % Monocytes % Eosinophils % Basophils % Nucleated RBC % Absolute Neutrophils Absolute Lymphocytes Absolute Monocytes Absolute Eosinophils Absolute Basophils D-Dimer Sodium 135 L Potassium 4.3 Chloride 98 Carbon Dioxide 30.5 Anion Gap 6.5 BUN 19 H Creatinine 1.1 H Estimated GFR/1.73 m2 47.32 Glucose 391 H 274 H D Hemoglobin A1c Calcium 8.9 Magnesium 2.5 H Total Bilirubin AST ALT Alkaline Phosphatase Troponin I NT-Pro-B Natriuret Pep Total Protein Albumin Procalcitonin TSH Urine Color Yellow Urine Clarity Clear Urine pH 5.5 Ur Specific [place] 1.010 Urine Protein Negative Urine Ketones Negative Urine Blood Negative Urine Nitrite Negative Urine Bilirubin Negative Urine Urobilinogen 0.2 Ur Leukocyte Esterase Negative Urine RBC Urine WBC Ur Epithelial Cells Urine Crystals Urine Bacteria Urine Mucus Ur Culture Indicated? Urine Glucose >=1000 H COVID-19 Source SARS-CoV-2 (PCR) 02/18/21 02/18/21 06:10 06:10 WBC 5.90 D RBC 4.12 Hgb 12.3 Hct 36.7 MCV 89.1 MCH 29.9 MCHC 33.5 RDW 13.0 Plt Count 256 MPV 10.7 Immature Gran % 0.8 Neutrophils % 76.9 Lymphocytes % 15.4 Monocytes % 6.6 Eosinophils % 0.0 Basophils % 0.3 Nucleated RBC % 0 Absolute Neutrophils 4.54 Absolute Lymphocytes 0.91 L Absolute Monocytes 0.39 Absolute Eosinophils 0.00 Absolute Basophils 0.02 D-Dimer Sodium Potassium Chloride Carbon Dioxide Anion Gap BUN Creatinine Estimated GFR/1.73 m2 Glucose Hemoglobin A1c 9.0 H Calcium Magnesium Total Bilirubin AST ALT Alkaline Phosphatase Troponin I NT-Pro-B Natriuret Pep Total Protein Albumin Procalcitonin TSH Urine Color Urine Clarity Urine pH Ur Specific [place] Urine Protein Urine Ketones Urine Blood Urine Nitrite Urine Bilirubin Urine Urobilinogen Ur Leukocyte Esterase Urine RBC Urine WBC Ur Epithelial Cells Urine Crystals Urine Bacteria Urine Mucus Ur Culture Indicated? Urine Glucose COVID-19 Source SARS-CoV-2 (PCR)
[2021-02-18 11:58] VITALS: O2SAT 93
--- NOTE | 2021-02-18 12:06 | PHA.REVIEW ---
Pharmacy Admission Review - Admission Clinical Review (Last Updated 02/17/21 @ 20:39 by Jodi Perez MD) Discharge planning issues (Acute) Pulmonary edema (Acute) COPD with hypoxia (Acute) Pneumonia (Acute) Mass of right lung (Acute) DVT prophylaxis (Acute) Hypomagnesemia (Acute) Penicillins Allergy (Severe, Verified 02/17/21 13:22) skin rash atorvastatin Adverse Reaction (Intermediate, Verified 02/17/21 13:22) muscle aches metformin Adverse Reaction (Intermediate, Verified 02/17/21 13:22) Diarrhea Resuscitation Status Full Code Height 5 ft 4 in Weight 85.6 kg - Renal Dosing Renal Dosing: BUN 19 mg/dL (7-18) H 02/18/21 06:10 Creatinine 1.1 mg/dL (0.55-1.02) H 02/18/21 06:10 Medications needing adjustments: Reviewed List of meds needing interventions: eCrCl 40.3 ml/min using adj bw, orders ok - Anticoagulation Anticoagulation: Hgb 12.3 g/dL (11.2-15.7) 02/18/21 06:10 Hct 36.7 % (36.0-46.0) 02/18/21 06:10 Plt Count 256 10^3/uL (130-400) 02/18/21 06:10 Creatinine 1.1 mg/dL (0.55-1.02) H 02/18/21 06:10 DVT Prophylaxis: Reviewed Medications: Enoxaparin - Opiate Usage Evaluate Pain Scale/Pains Meds: N/A - Relevant Labs Sodium 135 mmol/L (136-145) L 02/18/21 06:10 Potassium 4.3 mmol/L (3.5-5.1) 02/18/21 06:10 Chloride 98 mmol/L (98-107) 02/18/21 06:10 Magnesium 2.5 mg/dL (1.8-2.4) H 02/18/21 06:10 Electrolytes, C-Reactive P, ESR: Reviewed - DM Control DM Control: Glucose 274 mg/dL (74-106) H D 02/18/21 06:10 Hemoglobin A1c 9.0 % (<5.7) H 02/18/21 06:10 Finger Stick Blood Glucose 262 Finger Stick Blood Glucose 262 Finger Stick Blood Glucose 262 Finger Stick Blood Glucose 262 Insulin Dosing: Reviewed (aspart per ss plus 1 unit per 5 grams of carbs/meal, lantus 45 units BID (increase from home dose)) - Heart Failure/KS Heart Failure/KS: Troponin I < 50 ng/L (<or=60) 02/17/21 17:23 NT-Pro-B Natriuret Pep 337 pg/mL (<300) H 02/17/21 13:47 EF%, AMY's, B-Blockers, Diuretics: Reviewed (metoprolol and isosorbide; of note: not on an ACEI/ARB) - BP Control BP Control: Blood Pressure 144/73 Blood Pressure 125/80 If elevated: Reviewed - Qtc Review List meds needing interventions: QTc 436 on admission - IV to PO Switch IV Medications: Reviewed - Home Meds Home Med List reviewed: Intervened Relevent Home Meds Not ordered & why?: added ropinirole to med list as pt filled 30 day supply mid january, otherwise rest of home meds are ordered - Current meds Current Medication Order Review: Reviewed (ceftriaxone + doxycycline IV initiated for likely infectious process)
--- NOTE | 2021-02-18 13:52 | W.PM.DS.N ---
Date of service: 02/18/21 Time of Service: 13:52 DS: Diagnosis Discharge Diagnosis (1) Pulmonary edema: Status: Acute (2) Mass of right lung: Status: Acute (3) Mediastinal lymphadenopathy: Status: Acute (4) History of rheumatic fever: Status: Acute (5) Heart murmur: Status: Acute (6) RANDEE (obstructive sleep apnea): Status: Chronic (7) Pneumonia: Status: Acute Discharge Plan Disposition Patient Disposition: HOME Condition: Stable Discharge Details Reason For Visit: Lung Mass,Hypoxia Admit Date/Time: 02/17/21 17:23 Admit Provider: Jodi Perez Attending Provider: Jodi Perez Primary Care Provider: [facility] Hospital Course: This is a 85 year old female with dementia, rheumatic fever and CAD s/p PCI who presented to the ED with shortness of breath and cough she's been having for up to 3 months. She was treated with antibiotic and Lasix and has significantly improved, she was weaned off oxygen and re-ambulated. Imaging shows a right lung mass which is concerning for a malignant process, particularly given the widespread mediastinal LAD. she was evaluated by pulmonary and will follow outpatient for further evaluation and work up. In the interim will treat her for a pneumonia and start the work up for the mass. She will be seen in pulmonary clinic in 6 weeks with a follow up scan to assess whether the mass has changed in size. If it has not changed or gotten larger despite pneumonia treatment and other processes have been ruled out she will need a biopsy of the mass as well as the lymph nodes for diagnostic testing. The mass is very vascular in appearance on the scan so advises against blind biopsies here at [facility], thus IP at [facility] will be involved. The patient was seen by palliative care and will be seen as outpatient as well, she would at least be interested in the diagnostic testing to know for sure what it is, if in fact it needs to be done. she will be discharged home to complete a 5 day course of antibiotics and steroids as initiated for pneumonia. discharge discussed with DR Bansal. Home Meds and New Rx's Prescriptions: New prednisone 20 mg Tablet 40 mg PO DAILY Qty: 10 RF: 0 benzonatate 100 mg Capsule 100 mg PO TID PRN PRNQty: 12 RF: 0 levofloxacin 750 mg tablet 750 mg PO DAILY Qty: 5 RF: 0 Continued (DME) FreeStyle Saurabh 14 Day Sensor Kit See Rx Instructions .ROUTE .MEDSUPPLY Qty: 1 RF: 0 (DME) Poise Pads Pad See Rx Instructions .ROUTE .MEDSUPPLY Qty: 312 RF: 12 nitroglycerin [Nitrostat] 0.4 mg tablet, sublingual 0.4 mg Sublingual Q5 MIN PRN X3 PRN (Reason: chest pain) Qty: 50 RF: 6 (DME) diaper,brief,adult,disposable Misc See Rx Instructions .ROUTE .MEDSUPPLY Qty: 126 RF: 12 metoprolol tartrate 25 mg tablet 25 mg PO BID Qty: 180 RF: 3 (DME) pen needle, diabetic [BD Ultra-Fine Marilyn Pen Needle] 32 gauge x 5/32 needle 1 unit Miscellaneous HS Qty: 200 RF: 3 turmeric 400 mg capsule 400 mg PO DAILY RF: 0 diclofenac sodium [Arthritis Pain (diclofenac)] 1 % gel 2 g topical QID Qty: 100 RF: 2 albuterol sulfate [ProAir HFA] 90 mcg/actuation HFA aerosol inhaler 1 - 2 puff Inhalation Q4H PRN Qty: 1 RF: 12 donepezil 5 mg tablet,disintegrating 5 mg PO QHS Qty: 90 RF: 2 Lantus Solostar U-100 Insulin 100 unit/mL (3 mL) insulin pen 38 unit Sub-Q BID Qty: 30 RF: 12 (DME) blood-glucose meter [OneTouch Ultra2 Meter] 1 EACH kit 1 ea Miscellaneous DAILY Qty: 1 RF: 0 (DME) lancets [OneTouch UltraSoft Lancets] misc 1 ea Miscellaneous DAILY Qty: 200 RF: 3 (DME) blood sugar diagnostic Strip See Dose Instructions .ROUTE .MEDSUPPLY Qty: 200 RF: 3 (DME) FreeStyle Saurabh 14 Day [place] Misc See Rx Instructions .ROUTE .MEDSUPPLY Qty: 2 RF: 12 aspirin 81 mg tablet,delayed release (DR/EC) 81 mg PO HS Qty: 90 RF: 3 oxybutynin chloride 5 mg tablet extended release 24hr 5 mg PO HS Qty: 90 RF: 1 isosorbide mononitrate 30 mg tablet extended release 24 hr 30 mg PO DAILY Qty: 90 RF: 3 pregabalin 50 mg capsule 50 mg PO BID Qty: 60 RF: 2 rosuvastatin [Crestor] 5 mg tablet 5 mg PO DAILY Qty: 90 RF: 3 nortriptyline 10 mg capsule 10 mg PO HS Qty: 90 RF: 3 loperamide 2 mg Tablet 4 mg PO TID PRNRF: 0 ropinirole 1 mg tablet 1 mg PO QPM RF: 0 Discharge Instructions Instructions: Pneumonia (DC) Stand Alone Forms: Nursing Discharge Form Referrals: Gracia Colunga MD [ [facility] STAFF PHYSICIAN] - (Office will call you with appointment) Cecily Courtney MD [ [facility] STAFF PHYSICIAN] - 03/24/21 10:00 am Savanna Guillen NP [Primary Care Provider] - 03/02/21 9:45 am Activity:: Activity as Tolerated Equipment/Supplies:: No Equipment Needed Diet:: As Tolerated Discharge Orders Discharge Orders: Discharge Order (Routine); Ordered 02/18/21 Ordered By: Idania Henderson Discharge Data Discharge Date/Time-TO BE ENTERED AT DEPARTURE: 02/18/21 14:50 DS: Summary Time Spent with Patient providing and/or coordinating discharge services: Less than 30 minutes Status at Discharge Functional status at discharge: independent ambulation Overall status at discharge: patient is progressing back to baseline Mental Status: mental status grossly normal Speech and Movement: speech and movement normal Mood: congruent mood Affect: normal affect Exam Const General: cooperative, comfortable and no acute distress Nutritional Appearance: overweight Orientation: alert, awake and oriented x3 HENMT Head: normal to inspection, normocephalic and atraumatic Mouth: oral mucosae normal Resp Effort & Inspection: normal respiratory effort and able to speak in complete sentences Cardio Rate: regular rate Rhythm: regular rhythm GI Inspection: normal to inspection Palpation: soft Auscultation: normal bowel sounds Skin General skin exam: no rashes or lesions noted Neuro General: patient alert, patient awake, patient oriented x3 and no focal motor deficits Extrem General: normal to inspection, full ROM and pedal edema Psych Mental Status: mental status grossly normal Speech and Movement: speech and movement normal Mood: congruent mood Affect: normal affect DS: Data Vitals/I&O Vitals and I&O: Vital Signs Temperature 36.2 C L 02/18/21 07:12 Temperature Source Tympanic 02/18/21 07:12 Pulse 82 02/18/21 10:47 Pulse Rhythm Regular 02/18/21 08:44 Pulse 91 H 02/17/21 16:10 Respiratory Rate 18 02/18/21 07:12 Respiratory Effort Non-Labored 02/18/21 08:44 Respiratory Depth Normal 02/18/21 08:44 Respiratory Pattern Normal 02/18/21 08:44 Blood Pressure 144/73 H 02/18/21 07:12 Blood Pressure Mean 75 02/17/21 16:01 Blood Pressure Position Sitting 02/17/21 13:19 Pulse Oximetry 93 02/18/21 11:58 Oxygen Delivery Method Room Air 02/18/21 11:58 Oxygen Flow Rate 0 02/18/21 11:58 Fraction of Inspired Oxygen (FIO2) 21 02/18/21 11:58 Pain Level 0 02/18/21 07:12 Comment 02/17/21 23:30 Intake & Output 02/17/21 02/18/21 02/18/21 23:59 11:59 23:59 Intake Total 100 / 100 139 / 139 Output Total 725 / 725 400 / 400 Balance -625 / -625 -261 / -261 Weight 87.2 kg 85.6 kg Intake: IV 100 / 100 139 / 139 Output: Urine 725 / 725 400 / 400 Other: Urine Color Yellow Straw Urine Appearance Clear Clear Urine Odor None Normal Comment plus mod incontinent amount Voiding Methods Bedside Commode Data Completed and Pending Labs on day of discharge: Labs from last 24 hours 02/18/21 02/18/21 02/18/21 Unknown Unknown 13:15 WBC RBC Hgb Hct MCV MCH MCHC RDW Plt Count MPV Immature Gran % Neutrophils % Lymphocytes % Monocytes % Eosinophils % Basophils % Nucleated RBC % Absolute Neutrophils Absolute Lymphocytes Absolute Monocytes Absolute Eosinophils Absolute Basophils D-Dimer Sodium Potassium Chloride Carbon Dioxide Anion Gap BUN Creatinine Estimated GFR/1.73 m2 Glucose Hemoglobin A1c Calcium Magnesium Total Bilirubin AST ALT Alkaline Phosphatase Troponin I NT-Pro-B Natriuret Pep Total Protein Albumin Procalcitonin TSH Urine Color Urine Clarity Urine pH Ur Specific [place] Urine Protein Urine Ketones Urine Blood Urine Nitrite Urine Bilirubin Urine Urobilinogen Ur Leukocyte Esterase Urine RBC Urine WBC Ur Epithelial Cells Urine Crystals Urine Bacteria Urine Mucus Ur Culture Indicated? Urine Glucose ESTHER Titer Pending ESTHER Titer 2 Pending ESTHER Titer 3 Pending ESTHER Interpretation Pending ANCA Immunofluorescen Pending ANCA Titer Pending ANCA Pattern Pending Lymph/Leukemia Panel Blastomyces Ag Result Pending Blastomyces Ag Comment Pending COVID-19 Source SARS-CoV-2 (PCR) Urine Histoplasma Ag Pending U Histoplasma Ag Index Pending B-(1,3)-D-Glucan Quant Pending B-(1,3)-D-Glucan Qual Pending 02/18/21 02/18/21 02/18/21 13:15 06:10 06:10 WBC 5.90 D RBC 4.12 Hgb 12.3 Hct 36.7 MCV 89.1 MCH 29.9 MCHC 33.5 RDW 13.0 Plt Count 256 MPV 10.7 Immature Gran % 0.8 Neutrophils % 76.9 Lymphocytes % 15.4 Monocytes % 6.6 Eosinophils % 0.0 Basophils % 0.3 Nucleated RBC % 0 Absolute Neutrophils 4.54 Absolute Lymphocytes 0.91 L Absolute Monocytes 0.39 Absolute Eosinophils 0.00 Absolute Basophils 0.02 D-Dimer Sodium Potassium Chloride Carbon Dioxide Anion Gap BUN Creatinine Estimated GFR/1.73 m2 Glucose Hemoglobin A1c 9.0 H Calcium Magnesium Total Bilirubin AST ALT Alkaline Phosphatase Troponin I NT-Pro-B Natriuret Pep Total Protein Albumin Procalcitonin TSH Urine Color Urine Clarity Urine pH Ur Specific [place] Urine Protein Urine Ketones Urine Blood Urine Nitrite Urine Bilirubin Urine Urobilinogen Ur Leukocyte Esterase Urine RBC Urine WBC Ur Epithelial Cells Urine Crystals Urine Bacteria Urine Mucus Ur Culture Indicated? Urine Glucose ESTHER Titer ESTHER Titer 2 ESTHER Titer 3 ESTHER Interpretation ANCA Immunofluorescen ANCA Titer ANCA Pattern Lymph/Leukemia Panel Pending Blastomyces Ag Result Blastomyces Ag Comment COVID-19 Source SARS-CoV-2 (PCR) Urine Histoplasma Ag U Histoplasma Ag Index B-(1,3)-D-Glucan Quant B-(1,3)-D-Glucan Qual 02/18/21 02/18/21 02/17/21 06:10 00:32 22:20 WBC RBC Hgb Hct MCV MCH MCHC RDW Plt Count MPV Immature Gran % Neutrophils % Lymphocytes % Monocytes % Eosinophils % Basophils % Nucleated RBC % Absolute Neutrophils Absolute Lymphocytes Absolute Monocytes Absolute Eosinophils Absolute Basophils D-Dimer Sodium 135 L Potassium 4.3 Chloride 98 Carbon Dioxide 30.5 Anion Gap 6.5 BUN 19 H Creatinine 1.1 H Estimated GFR/1.73 m2 47.32 Glucose 274 H D 391 H Hemoglobin A1c Calcium 8.9 Magnesium 2.5 H Total Bilirubin AST ALT Alkaline Phosphatase Troponin I NT-Pro-B Natriuret Pep Total Protein Albumin Procalcitonin TSH Urine Color Yellow Urine Clarity Clear Urine pH 5.5 Ur Specific [place] 1.010 Urine Protein Negative Urine Ketones Negative Urine Blood Negative Urine Nitrite Negative Urine Bilirubin Negative Urine Urobilinogen 0.2 Ur Leukocyte Esterase Negative Urine RBC Urine WBC Ur Epithelial Cells Urine Crystals Urine Bacteria Urine Mucus Ur Culture Indicated? Urine Glucose >=1000 H ESTHER Titer ESTHER Titer 2 ESTHER Titer 3 ESTHER Interpretation ANCA Immunofluorescen ANCA Titer ANCA Pattern Lymph/Leukemia Panel Blastomyces Ag Result Blastomyces Ag Comment COVID-19 Source SARS-CoV-2 (PCR) Urine Histoplasma Ag U Histoplasma Ag Index B-(1,3)-D-Glucan Quant B-(1,3)-D-Glucan Qual 02/17/21 02/17/21 02/17/21 21:10 17:25 17:25 WBC RBC Hgb Hct MCV MCH MCHC RDW Plt Count MPV Immature Gran % Neutrophils % Lymphocytes % Monocytes % Eosinophils % Basophils % Nucleated RBC % Absolute Neutrophils Absolute Lymphocytes Absolute Monocytes Absolute Eosinophils Absolute Basophils D-Dimer Sodium Potassium Chloride Carbon Dioxide Anion Gap BUN Creatinine Estimated GFR/1.73 m2 Glucose 488 H D Hemoglobin A1c Calcium Magnesium Total Bilirubin AST ALT Alkaline Phosphatase Troponin I NT-Pro-B Natriuret Pep Total Protein Albumin Procalcitonin 0.1 TSH 0.95 Urine Color Urine Clarity Urine pH Ur Specific [place] Urine Protein Urine Ketones Urine Blood Urine Nitrite Urine Bilirubin Urine Urobilinogen Ur Leukocyte Esterase Urine RBC Urine WBC Ur Epithelial Cells Urine Crystals Urine Bacteria Urine Mucus Ur Culture Indicated? Urine Glucose ESTHER Titer ESTHER Titer 2 ESTHER Titer 3 ESTHER Interpretation ANCA Immunofluorescen ANCA Titer ANCA Pattern Lymph/Leukemia Panel Blastomyces Ag Result Blastomyces Ag Comment COVID-19 Source SARS-CoV-2 (PCR) Urine Histoplasma Ag U Histoplasma Ag Index B-(1,3)-D-Glucan Quant B-(1,3)-D-Glucan Qual 02/17/21 02/17/21 02/17/21 17:23 15:55 15:36 WBC RBC Hgb Hct MCV MCH MCHC RDW Plt Count MPV Immature Gran % Neutrophils % Lymphocytes % Monocytes % Eosinophils % Basophils % Nucleated RBC % Absolute Neutrophils Absolute Lymphocytes Absolute Monocytes Absolute Eosinophils Absolute Basophils D-Dimer 1808 H Sodium Potassium Chloride Carbon Dioxide Anion Gap BUN Creatinine Estimated GFR/1.73 m2 Glucose Hemoglobin A1c Calcium Magnesium Total Bilirubin AST ALT Alkaline Phosphatase Troponin I < 50 NT-Pro-B Natriuret Pep Total Protein Albumin Procalcitonin TSH Urine Color Emilie Urine Clarity Sl Cloudy Urine pH 5.5 Ur Specific [place] 1.025 Urine Protein 30 H Urine Ketones 15 H Urine Blood Trace-intact H Urine Nitrite Positive H Urine Bilirubin Negative Urine Urobilinogen 1.0 H Ur Leukocyte Esterase Moderate H Urine RBC Urine WBC >50 H Ur Epithelial Cells Many Urine Crystals Not Applicable Urine Bacteria Many Urine Mucus Heavy Ur Culture Indicated? No/Sq. Contamination Urine Glucose Negative ESTHER Titer ESTHER Titer 2 ESTHER Titer 3 ESTHER Interpretation ANCA Immunofluorescen ANCA Titer ANCA Pattern Lymph/Leukemia Panel Blastomyces Ag Result Blastomyces Ag Comment COVID-19 Source SARS-CoV-2 (PCR) Urine Histoplasma Ag U Histoplasma Ag Index B-(1,3)-D-Glucan Quant B-(1,3)-D-Glucan Qual 02/17/21 02/17/21 02/17/21 13:47 13:47 13:30 WBC 11.36 H RBC 4.07 Hgb 12.3 Hct 35.9 L MCV 88.2 MCH 30.2 MCHC 34.3 RDW 13.2 Plt Count 254 MPV 10.4 Immature Gran % 0.4 Neutrophils % 86.0 Lymphocytes % 4.8 Monocytes % 7.4 Eosinophils % 1.1 Basophils % 0.3 Nucleated RBC % 0 Absolute Neutrophils 9.77 H Absolute Lymphocytes 0.55 L Absolute Monocytes 0.84 H Absolute Eosinophils 0.12 Absolute Basophils 0.03 D-Dimer Sodium 132 L Potassium 3.9 Chloride 96 L Carbon Dioxide 29.1 Anion Gap 6.9 BUN 16 Creatinine 1.1 H Estimated GFR/1.73 m2 47.32 Glucose 210 H Hemoglobin A1c Calcium 8.6 Magnesium 1.7 L Total Bilirubin 1.5 H AST 24 ALT 26 Alkaline Phosphatase 153 H Troponin I < 50 NT-Pro-B Natriuret Pep 337 H Total Protein 6.9 Albumin 2.8 L Procalcitonin TSH Urine Color Urine Clarity Urine pH Ur Specific [place] Urine Protein Urine Ketones Urine Blood Urine Nitrite Urine Bilirubin Urine Urobilinogen Ur Leukocyte Esterase Urine RBC Urine WBC Ur Epithelial Cells Urine Crystals Urine Bacteria Urine Mucus Ur Culture Indicated? Urine Glucose ESTHER Titer ESTHER Titer 2 ESTHER Titer 3 ESTHER Interpretation ANCA Immunofluorescen ANCA Titer ANCA Pattern Lymph/Leukemia Panel Blastomyces Ag Result Blastomyces Ag Comment COVID-19 Source Nasal/Nares SARS-CoV-2 (PCR) Negative Urine Histoplasma Ag U Histoplasma Ag Index B-(1,3)-D-Glucan Quant B-(1,3)-D-Glucan Qual 02/17/21 17:23 Blood Blood Culture - Pending 02/17/21 17:23 Blood Blood Culture - Pending Preliminary micro results at discharge 02/17/21 17:23 Blood Culture - Pending Blood 02/17/21 17:23 Blood Culture - Pending Blood [facility] All Active Problems (Updated 02/18/21 @ 12:29 by Gracia Colunga MD) Lung mass (Acute) RANDEE (obstructive sleep apnea) (Chronic) Mediastinal lymphadenopathy (Acute) Discharge planning issues (Acute) Pulmonary edema (Acute) Pneumonia (Acute) Mass of right lung (Acute) 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 Pylori DVT prophylaxis (Acute) Status post total knee replacement, right (Acute) DOS: 06/26/2018 Dr. Johnny Johnson of behavior change (Acute) Esophagitis (Acute 12/13/16) Hypomagnesemia (Acute) Dehydration (Acute) Transient global amnesia (Acute) HEAD (dyspnea on exertion) (Acute) Chest pain at rest (Acute) Status post total knee replacement (Acute) ASCVD (arteriosclerotic cardiovascular disease) (Acute) Cardiloogy Stefan Munguia Loss of equilibrium (Acute) Carpal tunnel syndrome on right (Acute) s/p ECTR DOS: 03/04/20 Derangement of left acromioclavicular joint (Acute) Obesity (Chronic) Heart murmur (Acute) History of rheumatic fever (Acute) Tendonitis of left rotator cuff (Acute) Colitis (Acute) resolved. Primary osteoarthritis of right knee (Chronic) Tinnitus of both ears (Acute 09/26/14) Skin lesion of left ear (Acute 10/31/15) Sensorineural hearing loss, bilateral (Acute 09/13/13) Sciatica (Acute 02/19/11) Primary osteoarthritis involving multiple joints (Acute 10/30/14) Diverticulitis of colon (Acute 02/19/11) RECURRENT Diabetic neuropathy (Chronic 01/24/14) peripheral neuropathy Medical History (Updated 02/18/21 @ 12:29 by Gracia Colunga MD) JEMIMA (acute kidney injury) Alzheimer's dementia Angina at rest (02/19/11) very rare, follow with Dr. Fiore Atherosclerosis of [place] coronary artery of [place] heart with angina pectoris UNSTABLE ANGINA, CATH 01/2011 JOHN to OM1 EF 65%. MPI 06/10/11 no ischemia, sm septal defect, nl EF CAD (coronary artery disease) Chest pain (04/28/14) Chronic kidney disease, stage III (moderate) Diabetes mellitus with neuropathy goal 7.5; insulin begun 07/2016 Edema (09/05/15) nl EF, proably venous Essential hypertension (07/27/12) goal 140/90 Fibromyalgia (12/18/14) Dx 12/[address] Kraft Rheum [facility] Gastritis, chronic (12/13/16) with gastric polyps. (12/13/16 report of operation). [place] GERD (gastroesophageal reflux disease) H/O diverticulitis of colon Hearing loss of both ears Hyperlipidemia (02/19/11) LDL baseline 127 intol ator, simv 20mg Hypertension Mild obstructive sleep apnea (06/29/20) Old myocardial infarction 1999 Osteopenia (02/19/11) T -1.6 Osteoporosis Positive cardiac stress test (06/30/17) has sched cardiac cath 07/[address] Arnett. Rectal bleed Syncope (05/15/14) neg w/u Urinary incontinence (06/05/14) Sacral stimulator: Dr Stokes in [place] Surgical History (Updated 02/18/21 @ 12:14 by Gracia Colunga MD) Colonoscopy - MAC (12/13/16) Coronary Stent (07/12/17) [facility]. Kenyon Arnett MD report date . procedures: coronary angiography,left heart catherization,coronary stent insertion. x2 EGD - MAC (12/13/16) Postsurgical percutaneous transluminal coronary angioplasty status 2008 S/P right knee arthroscopy Dr. Galloway >10 years Status post implantation of urinary electronic stimulator device Tonsillectomy Family History (Updated 02/17/21 @ 20:39 by Jodi Perez MD) Father , MS Heart disease Hypertension Sister Stomach cancer Mother , at age 102 Hypertension Paternal Grandfather Stroke Social History (Updated 02/17/21 @ 20:40 by Jodi Perez MD) Smoking/Tobacco Use Status: Former Tobacco Use Quit Date: 02/15/68 Tobacco: How many years used: 18 Smoking risk assessment performed?: Yes Alcohol Intake: current Alcohol Intake frequency: holidays/special occasions only Alcohol type: wine Drug use: Never Substance use type: does not use Household members: friend(s) and other Communication Needs: Corrective Lenses Current gender identity: female What type of physical activity do you participate in: none Seatbelt use: always Drive intox or ride w/intox 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
[2021-02-18 14:54] VITALS: PULSE 71
--- NOTE | 2021-02-18 18:57 | PCNE_ITS ---
Date of service: 02/18/21 Time of Service: 13:00 History of Present Illness History of Present Illness Chief Complaint: new diagnosis of likely lung cancer, chronic cough Narrative: I met with Sonia in her room. She saw Dr Quintero, pulmonology, earlier in the day. I spoke to Dr Bansal about her, as well as Idania Henderson NP. I reviewed her notes. Her long-term partner, Jessenia, called while I was present. We agreed to set up an appointment about one month after today's discharge so Jessenia could participate in conversation, too. Note that they have been living together for more than 60 years. Sonia was very pleasant. She did not seem perturbed or surprised to hear that she likely has lung cancer. She's been coughing since September, maybe longer. She was being worked up for chronic cough by her PCP prior to this admission. She smoked ages [age]. She never had a job with any inhalation exposures. 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 She and her partner moved to [place] many years ago; she's not sure when. Her partner is originally from [place]. Her ability to give a detailed exact history is blunted. She has some early Alzheimer's Disease. She and I discussed the role of [facility]. I explained that our team helps with decision making and symptom management. Consults Consult date: 02/18/21 Requesting physician: Jodi Perez Assessment and Plan Assessment and plan (1) Palliative care patient: Status: Acute Assessment and plan: Will see her at [facility] office in one month; her partner Jessenia will come with her. By that time, she should have had a biopsy of her lung and a chance to meet with oncology. (2) Lung mass: Status: Acute Assessment and plan: Likely lung cancer, stage 2-3? Needs biopsy and staging. Read Dr Quintero's note; looks as if biopsy may not happen until April? * Sonia may want to have biospy before then. (3) Mediastinal lymphadenopathy: Status: Acute (4) Mass of right lung: Status: Acute (5) Has same sex partner: Status: Acute (6) Goals of care, counseling/discussion: Status: Acute Assessment and plan: Not afraid of dying. Has already outlived her older sister. Does want pain controlled, when she develops it. She is unsure about her CODE status. She wants to make that decision and fill out a COLST when Jessenia is present. Feels she is needing more guidance on medical decision making than she used to. Wants to appoint Jessenia as her Health Care agent. (7) Memory impairment: Status: Acute Assessment and plan: Has seen neurology for same. Is on aricept. No known FH of AD. Still able to make her own decisions for now. (8) Elevated d-dimer: Status: Acute Assessment and plan: Likely due to her malignancy (suspected). (9) Cough in adult: Status: Chronic Assessment and plan: Her primary symptom of lung cancer. x 5-6 months. Review of Systems Constitutional Constitutional: Reports fatigue, Reports lethargy and Reports weight loss Eyes Eyes: Reports requires corrective lenses ENT Ears, Nose, Mouth, and Throat: Reports dry mouth and Reports disequilibrium Cardiovascular Cardiovascular: Reports lightheadedness, Reports dyspnea and Reports dyspnea on exertion Respiratory Respiratory: Reports cough, Reports dyspnea and Reports dyspnea on exertion Gastrointestinal Gastrointestinal: Reports constipation Genitourinary Genitourinary: Reports urinary incontinence Musculoskeletal Musculoskeletal: Reports back pain and Reports muscle weakness Integumentary/Breasts Skin/Breast: Reports dry skin Neurologic Neurologic: Reports abnormal speech, Reports memory loss and Reports disequilibrium Psychiatric Psychiatric: Reports difficulty concentrating and Reports memory loss Endocrine Endocrine: Reports fatigue PFSH All Active Problems (Updated 02/18/21 @ 20:57 by Ceicly Courtney MD) Cough in adult (Chronic) symptom of lung cancer Elevated d-dimer (Acute) likely due to malignancy Goals of care, counseling/discussion (Acute) Has same sex partner (Acute) Palliative care patient (Acute) Lung mass (Acute) RANDEE (obstructive sleep apnea) (Chronic) Mediastinal lymphadenopathy (Acute) Discharge planning issues (Acute) Pulmonary edema (Acute) Pneumonia (Acute) Mass of right lung (Acute) 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 Pylori DVT prophylaxis (Acute) Status post total knee replacement, right (Acute) DOS: 06/26/2018 Dr. Johnny Johnson of behavior change (Acute) Esophagitis (Acute 12/13/16) Hypomagnesemia (Acute) Dehydration (Acute) Transient global amnesia (Acute) HEAD (dyspnea on exertion) (Acute) Chest pain at rest (Acute) Status post total knee replacement (Acute) ASCVD (arteriosclerotic cardiovascular disease) (Acute) Cardiloogy Stefan Munguia Loss of equilibrium (Acute) Carpal tunnel syndrome on right (Acute) s/p ECTR DOS: 03/04/20 Derangement of left acromioclavicular joint (Acute) Obesity (Chronic) Heart murmur (Acute) History of rheumatic fever (Acute) Tendonitis of left rotator cuff (Acute) Colitis (Acute) resolved. Primary osteoarthritis of right knee (Chronic) Tinnitus of both ears (Acute 09/26/14) Skin lesion of left ear (Acute 10/31/15) Sensorineural hearing loss, bilateral (Acute 09/13/13) Sciatica (Acute 02/19/11) Primary osteoarthritis involving multiple joints (Acute 10/30/14) Diverticulitis of colon (Acute 02/19/11) RECURRENT Diabetic neuropathy (Chronic 01/24/14) peripheral neuropathy Medical History (Updated 02/18/21 @ 20:57 by Cecily Courtney MD) JEMIMA (acute kidney injury) Alzheimer's dementia Angina at rest (02/19/11) very rare, follow with Dr. Fiore Atherosclerosis of [place] coronary artery of [place] heart with angina pectoris UNSTABLE ANGINA, CATH 01/2011 JOHN to OM1 EF 65%. MPI 06/10/11 no ischemia, sm septal defect, nl EF CAD (coronary artery disease) Chest pain (04/28/14) Chronic kidney disease, stage III (moderate) Diabetes mellitus with neuropathy goal 7.5; insulin begun 07/2016 Edema (09/05/15) nl EF, proably venous Essential hypertension (07/27/12) goal 140/90 Fibromyalgia (12/18/14) Dx 12/[address] Kraft Rheum [facility] [place] [place] Gastritis, chronic (12/13/16) with gastric polyps. (12/13/16 report of operation). NC GERD (gastroesophageal reflux disease) H/O diverticulitis of colon Hearing loss of both ears Hyperlipidemia (02/19/11) LDL baseline 127 intol ator, simv 20mg Hypertension Mild obstructive sleep apnea (06/29/20) Old myocardial infarction 1999 Osteopenia (02/19/11) T -1.6 Osteoporosis Positive cardiac stress test (06/30/17) has sched cardiac cath 07/[address] Arnett. Rectal bleed Syncope (05/15/14) neg w/u Urinary incontinence (06/05/14) Sacral stimulator: Dr Stokes in [facility] Surgical History Colonoscopy - MAC (12/13/16) Coronary Stent (07/12/17) [facility] [place] [place]. Kenyon Arnett MD report date . procedures: coronary angiography,left heart catherization,coronary stent insertion. x2 EGD - MAC (12/13/16) Postsurgical percutaneous transluminal coronary angioplasty status 2008 S/P right knee arthroscopy Dr. Galloway >10 years Status post implantation of urinary electronic stimulator device Tonsillectomy Family History (Updated 02/18/21 @ 20:58 by Cecily Courtney MD) Father , [place] Heart disease Hypertension Sister , age 76 Stomach cancer Colon cancer Mother , at age 102--or 109. Sonia unsure. Hypertension Paternal Grandfather Stroke Social History (Updated 02/18/21 @ 21:01 by Cecily Courtney MD) Smoking/Tobacco Use Status: Former Tobacco Use Quit Date: 02/15/68 Tobacco: How many years used: 18 Smoking risk assessment performed?: Yes Alcohol Intake: current Alcohol Intake frequency: holidays/special occasions only Alcohol type: wine Drug use: Never Substance use type: does not use Caregiver/Support person: Yes Household members: significant other Housing: house Number of Children: 0 Communication Needs: Corrective Lenses Education Level: high school Do you need help understanding health information?: Always current occupation: retired Pets and animals: Yes Pets and animals: cat(s) Sexually active: No Do you think of yourself as: lesbian/rivas/homosexual Current gender identity: female What is your relationship status?: living with partner Panel score (0-1 are the most socially isolated patients): 1 What type of physical activity do you participate in: none Frequency: does not exercise Special saurabh needs: No Seatbelt use: always Drive intox or ride w/intox 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 They met at the [facility] in [place], [place]. Jessenia is from [place]. They retired here, not sure when a long time ago. 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 Pleasant. Not sure how she wants to proceed specifically re: t reatment plans. IF my cancer has spread, I don't want to do anything. If it can't be cured, I don't want treatment. Exam Const General: cooperative, comfortable and no acute distress Nutritional Appearance: overweight Orientation: alert, awake and oriented x3 HENMT Head: normal to inspection, normocephalic and atraumatic Mouth: oral mucosae normal Resp Effort & Inspection: normal respiratory effort and able to speak in complete sentences Cardio Rate: regular rate Rhythm: regular rhythm GI Inspection: normal to inspection Palpation: soft Auscultation: normal bowel sounds Skin General skin exam: no rashes or lesions noted Neuro General: patient alert, patient awake, patient oriented x3 and no focal motor deficits Extrem General: normal to inspection, full ROM and pedal edema Psych Mental Status: mental status grossly normal Speech and Movement: speech and movement normal Mood: congruent mood Affect: normal affect Results Last Vital Signs Temp 97.2 F L 02/18/21 07:12 Pulse 71 02/18/21 14:54 Resp 18 02/18/21 07:12 BP 144/73 H 02/18/21 07:12 Pulse Ox 93 02/18/21 11:58 Labs Result diagrams: 02/18/21 06:10 02/18/21 06:10 Labs: Laboratory Results - last 24 hr 02/17/21 02/17/21 02/17/21 17:25 17:25 21:10 WBC RBC Hgb Hct MCV MCH MCHC RDW Plt Count MPV Immature Gran % Neutrophils % Lymphocytes % Monocytes % Eosinophils % Basophils % Nucleated RBC % Absolute Neutrophils Absolute Lymphocytes Absolute Monocytes Absolute Eosinophils Absolute Basophils Sodium Potassium Chloride Carbon Dioxide Anion Gap BUN Creatinine Estimated GFR/1.73 m2 Glucose 488 H D Hemoglobin A1c Calcium Magnesium Procalcitonin 0.1 TSH 0.95 Urine Color Urine Clarity Urine pH Ur Specific [place] Urine Protein Urine Ketones Urine Blood Urine Nitrite Urine Bilirubin Urine Urobilinogen Ur Leukocyte Esterase Urine Glucose Blastomyces Ag Result Blastomyces Ag Comment 02/17/21 02/18/21 02/18/21 22:20 00:32 06:10 WBC RBC Hgb Hct MCV MCH MCHC RDW Plt Count MPV Immature Gran % Neutrophils % Lymphocytes % Monocytes % Eosinophils % Basophils % Nucleated RBC % Absolute Neutrophils Absolute Lymphocytes Absolute Monocytes Absolute Eosinophils Absolute Basophils Sodium 135 L Potassium 4.3 Chloride 98 Carbon Dioxide 30.5 Anion Gap 6.5 BUN 19 H Creatinine 1.1 H Estimated GFR/1.73 m2 47.32 Glucose 391 H 274 H D Hemoglobin A1c Calcium 8.9 Magnesium 2.5 H Procalcitonin TSH Urine Color Yellow Urine Clarity Clear Urine pH 5.5 Ur Specific [place] 1.010 Urine Protein Negative Urine Ketones Negative Urine Blood Negative Urine Nitrite Negative Urine Bilirubin Negative Urine Urobilinogen 0.2 Ur Leukocyte Esterase Negative Urine Glucose >=1000 H Blastomyces Ag Result Blastomyces Ag Comment 02/18/21 02/18/21 02/18/21 06:10 06:10 Unknown WBC 5.90 D RBC 4.12 Hgb 12.3 Hct 36.7 MCV 89.1 MCH 29.9 MCHC 33.5 RDW 13.0 Plt Count 256 MPV 10.7 Immature Gran % 0.8 Neutrophils % 76.9 Lymphocytes % 15.4 Monocytes % 6.6 Eosinophils % 0.0 Basophils % 0.3 Nucleated RBC % 0 Absolute Neutrophils 4.54 Absolute Lymphocytes 0.91 L Absolute Monocytes 0.39 Absolute Eosinophils 0.00 Absolute Basophils 0.02 Sodium Potassium Chloride Carbon Dioxide Anion Gap BUN Creatinine Estimated GFR/1.73 m2 Glucose Hemoglobin A1c 9.0 H Calcium Magnesium Procalcitonin TSH Urine Color Urine Clarity Urine pH Ur Specific [place] Urine Protein Urine Ketones Urine Blood Urine Nitrite Urine Bilirubin Urine Urobilinogen Ur Leukocyte Esterase Urine Glucose Blastomyces Ag Result Cancelled Blastomyces Ag Comment Cancelled
[2021-02-18 23:29] LABS: Legionella Ag Detection Urine Negative (Negative)
[2021-02-19 14:41] LABS: ANA Interpretation Positive (Negative); ANA Titer Pattern 1:320 Homogeneous; ANCA Interpretation Negative (Negative)
[2021-02-19 15:20] LABS: Streptococcus Pneumoniae Ag, U Negative (Negative)
[2021-02-19 17:05] LABS: Fungitell Qualitative Negative (Negative); Fungitell Quantitative Value <31 pg/mL (<60 pg/mL)
[2021-02-20 20:08] LABS: Blastomyces Ag Result Not Detected; Blastomyces Ag Value Not Detected
[2021-02-27 14:53] LABS: Leukemia/Lymphoma by FC (Blood See Comments
== END 2021-02-18 14:50 | disposition home or self-care (01) | DRG 193 ==
LOC: ER 16:16 → MS 18:00
PROVIDERS: Registered Nurse Emergency; Student in an Organized Health Care Education/Training Program; Admitting Provider Internal Medicine; Emergency Provider Nurse Practitioner Family; PCP Nurse Practitioner; Visit Provider Internal Medicine
DX: J18.9 Pneumonia, unspecified organism (principal); J81.0 Acute pulmonary edema; G30.9 Alzheimer's disease, unspecified; F02.80 Dementia in other diseases classified elsewhere, unspecified severity, without behavioral disturbance, psychotic disturbance, mood disturbance, and anxiety; R91.8 Other nonspecific abnormal finding of lung field; E83.42 Hypomagnesemia; E11.40 Type 2 diabetes mellitus with diabetic neuropathy, unspecified; R09.02 Hypoxemia; J44.9 Chronic obstructive pulmonary disease, unspecified; G47.61 Periodic limb movement disorder; M54.30 Sciatica, unspecified side; K21.9 Gastro-esophageal reflux disease without esophagitis; M15.9 Polyosteoarthritis, unspecified; I25.119 Atherosclerotic heart disease of native coronary artery with unspecified angina pectoris; E11.22 Type 2 diabetes mellitus with diabetic chronic kidney disease; N18.30 Chronic kidney disease, stage 3 unspecified; I12.9 Hypertensive chronic kidney disease with stage 1 through stage 4 chronic kidney disease, or unspecified chronic kidney disease; G47.33 Obstructive sleep apnea (adult) (pediatric); R59.0 Localized enlarged lymph nodes; I25.2 Old myocardial infarction; Z79.4 Long term (current) use of insulin; Z95.5 Presence of coronary angioplasty implant and graft; Z96.651 Presence of right artificial knee joint
CPT/HCPCS: 36415; 36416; 71275; 80048; 80053; 82947; 82962; 84145; 86255; 87040; 87449; 87635; 88185; 93005; 94640; 96374; 96375; 97162; 99285; J1650; 71045; 81003; 81015; 83036; 83735; 83880; 84443; 84484; 85025; 85379; 86038; 87385; 87899; 88184; 88189; 93010; 93306; 94667; 99223; 99238; J0696; J1940; J2930; J3475; J3490; J7512; J7620

== ENCOUNTER 2021-03-31 00:33 | Outpatient (CLI) | payer MEDICARE, SELFPAY ==
--- NOTE | 2021-03-31 10:24 | DI.CT_ITS ---
Exam(s) CT CHEST WO EXAM: CT CHEST WO CLINICAL HISTORY: f/u lung mass after PNA treatment,r91.8. TECHNIQUE: Multi planar reconstructions were performed. CONTRAST MATERIAL: None COMPARISON: CT CT CHEST PE CTA from 02/17/2021 FINDINGS: CHEST: LUNGS: There has been significant improvement in the bilateral lung infiltrates and the previously pr esent pleural effusions have resolved. There is still some mild increased markings in both lung field s, relatively symmetrical. No new confluent infiltrates. No new findings in the trachea and mainstem bronchi. MEDIASTINUM: Somewhat difficult to compared to the prior study as the present study is noninfused but there does appear to be decreasing hilar adenopathy. There is still subcarinal adenopathy. Nodules a re again noted in the left thyroid lobe.No obvious axillary adenopathy CARDIAC: Heart size is normal. There is no pericardial effusion.Caliber of the thoracic aorta is wit hin normal limits. VISUALIZED UPPER ABDOMEN:No adrenal masses. OSSEOUS: No significant osseous lesions.. IMPRESSION: 1. Compared to the prior contrast infused CT scan of 02/17/2021 there has been significant improvemen t in the bilateral lung infiltrates and the bilateral pleural effusions seen on the prior study have resolved. 2. There is still subcarinal adenopathy. It is somewhat difficult to compare the hilar regions on the present noninfused study to the prior contrast infused study. However, there appears to be a probabl e slight decrease in amount of bilateral hilar adenopathy. 3. No obvious new masses evident. RADIATION DOSE DELIVERED: 544.4mGy.cm Total DLP DATA REPOSITORY: All CT scans at this facility are submitted to the National Radiology Data Registry (NRDR) Dose Index Registry (DIR) with the [employer] [place] [employer] (ACR). RADIATION OPTIMIZATION: All CT scans at this facility use at least one of these dose optimization te chniques: automated exposure control; mA and/or kV adjustment per patient size (includes targeted exa ms where dose is matched to clinical indication); or iterative reconstruction.
== END 2021-03-31 00:53 ==
PROVIDERS: PCP Nurse Practitioner; Visit Provider Student in an Organized Health Care Education/Training Program
DX: R91.8 Other nonspecific abnormal finding of lung field (principal); E04.2 Nontoxic multinodular goiter; R59.0 Localized enlarged lymph nodes
CPT/HCPCS: 71250

== ENCOUNTER 2021-04-09 02:52 | Outpatient (CLI) | payer MEDICARE, SELFPAY ==
[2021-04-09] MEDS: Albuterol HFA 18 GM 200 PUFF INH IH (11:19)
[2021-04-09] MEDS: Inhaler, Assist Device 1 EACH MC (11:19)
== END 2021-04-09 02:53 | disposition home or self-care (01) ==
LOC: RT 02:52
PROVIDERS: PCP Nurse Practitioner; Visit Provider Student in an Organized Health Care Education/Training Program
DX: R06.09 Other forms of dyspnea (principal); Z87.891 Personal history of nicotine dependence
CPT/HCPCS: 94060; 94726; 94729

== ENCOUNTER → 2021-04-20 13:59 | Outpatient (BNVA) | payer MEDICARE, SELFPAY | PROVIDERS: PCP Nurse Practitioner; Referring Provider Nurse Practitioner; Visit Provider Nurse Practitioner Adult Health | DX: G30.9 Alzheimer's disease, unspecified (principal); F02.80 Dementia in other diseases classified elsewhere, unspecified severity, without behavioral disturbance, psychotic disturbance, mood disturbance, and anxiety | CPT/HCPCS: 99213; 99214 ==

== ENCOUNTER 2021-05-28 14:03 | Outpatient (CLI) | payer MEDICARE, SELFPAY ==
--- NOTE | 2021-05-28 10:32 | DI.RAD_ITS ---
Exam(s) XR CHEST 2V PA LATERAL EXAM: XR CHEST 2V PA LATERAL CLINICAL HISTORY: SOB R06.02, cough, recent pneumonia R05.9 TECHNIQUE: COMPARISON: CR XR PORTABLE CHEST AP from 02/17/2021 FINDINGS: The heart is not enlarged. Diaphragm is elevated on the right. In comparison with prior chest radio graph of February 17, there has been considerable interval clearing of the lungs. No pleural effusio n seen at this time. Mild prominence of michael noted bilaterally. IMPRESSION: Interval improvement since February 17 study. RADIATION DOSE DELIVERED: Total DLP
== END 2021-05-28 14:23 ==
PROVIDERS: PCP Nurse Practitioner; Visit Provider Nurse Practitioner
DX: R05.9 Cough, unspecified (principal); R06.02 Shortness of breath
CPT/HCPCS: 71046

== ENCOUNTER → 2021-06-01 14:22 | Outpatient (BNVA) | payer MEDICARE, SELFPAY | PROVIDERS: PCP Nurse Practitioner; Visit Provider Nurse Practitioner Adult Health | DX: G30.9 Alzheimer's disease, unspecified (principal); F02.80 Dementia in other diseases classified elsewhere, unspecified severity, without behavioral disturbance, psychotic disturbance, mood disturbance, and anxiety | CPT/HCPCS: 99213 ==

== ENCOUNTER → 2021-06-17 15:33 | Outpatient (CLI) | payer MEDICARE, SELFPAY ==
--- NOTE | 2021-06-17 11:15 | DI.RAD_ITS ---
Exam(s) XR CHEST 2V PA LATERAL EXAM: XR CHEST 2V PA LATERAL CLINICAL HISTORY: chest congestion R09.89 TECHNIQUE: 2D digital imaging was performed. COMPARISON: CR XR CHEST 2V PA LATERAL from 05/28/2021 FINDINGS: MEDIASTINUM: Normal. HEART: Normal. LUNGS: Mild fibrotic changes, otherwise clear. PLEURAL SPACE: No pleural effusion or pneumothorax. BONE:Degenerative changes. No compression fractures. IMPRESSION: No acute abnormality. DATA REPOSITORY: RADIATION DOSE DELIVERED:
== END ==
PROVIDERS: PCP Nurse Practitioner; Visit Provider Nurse Practitioner
DX: R09.89 Other specified symptoms and signs involving the circulatory and respiratory systems (principal); J44.9 Chronic obstructive pulmonary disease, unspecified
CPT/HCPCS: 71046

== ENCOUNTER 2021-07-31 01:53 | Outpatient (CLI) | payer MEDICARE, SELFPAY ==
--- NOTE | 2021-07-31 11:00 | NS.NUTBLAN_ITS ---
Sonia was referred to diabetes self education along with her partner Jessenia. She is 85 year old female with obesity, DM2, HTN, CAD, CKD, GERD, mild Alzheimer's disease. 5'4 200 lbs BMI 34. DM meds: lantus 50 units BID Most recent A1C (05/05): 10.8% Ambulatory Glucose Profile (07/18/21-07/31/21) Average Glucose: 249 mg/dl Time in Range (70-180): 22% 181-250 mg/dl: 28% >250 mg/dl: 50% no hypoglycemic events Diet Recall: breakfast: cereal with half and half, yogurt and a boost. Lunch: hot dog with chips or diner meal: Dinner: waffles, Boost. Has a Pepsi most days. No routine exercise. Poorly controlled diabetes with high intake of simple carbs during day. . Does not report forgetting basal insulin dosage BID or having issues with injection site. Suspect very insulin resistant and needing additional medication such as 1000 mg metformin BID and either Trulicity or Jardiance. Reviewed with Sonia and Jessenia how to count carbs and how to limit carbs to no more than 65 g carbs at meals. Recommended no longer drinking Boost or Pepsi and to switch to diet options. Sonia said she would cut down amount but will not drink diet. Sonia is willing to walk more and to increase protein intake with eggs, cheese, chicken, meat and fish. She would like to continue carb rich foods that she enjoys such as matza bread with butter, chips and waffles. In view of age and comorbidities, recommend A1C goal of < 8,5%. May need meal time insulin if above medications are not able to reduce blood sugars on regular basis. No follow up planned at this time.
== END 2021-07-31 01:54 | disposition home or self-care (01) ==
LOC: DS 01:53
PROVIDERS: PCP Nurse Practitioner; Visit Provider Dietitian, Registered
DX: E11.9 Type 2 diabetes mellitus without complications (principal); Z79.4 Long term (current) use of insulin; E66.8 Other obesity; Z71.3 Dietary counseling and surveillance
CPT/HCPCS: 97802

== ENCOUNTER → 2021-08-03 09:32 | Outpatient (BNVA) | payer MEDICARE, SELFPAY | PROVIDERS: PCP Nurse Practitioner; Referring Provider Nurse Practitioner; Visit Provider Nurse Practitioner Adult Health | DX: G30.9 Alzheimer's disease, unspecified (principal); F02.80 Dementia in other diseases classified elsewhere, unspecified severity, without behavioral disturbance, psychotic disturbance, mood disturbance, and anxiety | CPT/HCPCS: 99213 ==

== ENCOUNTER 2021-08-25 17:00 | Inpatient (IN) | payer MEDICARE, SELFPAY ==
[2021-08-25] VITALS (81 sets, daily range): BP systolic 136–148; BP diastolic 70–96; PULSE 77–111; RESP 6–31; TEMP 36–36.3; O2SAT 91–99
--- NOTE | 2021-08-25 17:00 | DI.RAD_ITS ---
Exam(s) XR PORTABLE CHEST AP EXAM: XR PORTABLE CHEST AP CLINICAL HISTORY: chest pain, r/o acute disease. TECHNIQUE: 2D digital imaging was performed. COMPARISON: CR XR CHEST 2V PA LATERAL from 02/12/2021 CR XR CHEST 2V PA LATERAL from 06/17/2021 FINDINGS: Single AP portable view. Right hemidiaphragm again noted be elevated, unchanged Heart size is upper normal. The mediastinum is not widened. Lungs are clear. No infiltrates nor obvious pleural effusions. IMPRESSION: No acute pulmonary findings on this single AP portable view of the chest. Elevated right hemidiaphragm again noted. DATA REPOSITORY: RADIATION DOSE DELIVERED: All CT scans at this facility use at least one of these dose optimization techniques: automated exposure control; mA and/or kV adjustment per patient size (includes targeted e xams where dose is matched to clinical indication); or iterative reconstruction.
--- NOTE | 2021-08-25 17:00 | RT.EKG_ITS ---
APPROVED REPORT Exam: Resting ECG Reason for Exam: chest pain Patient Location: E HR:111 bpm ECG Measurements Heart Rate 111 AXIS OK 156 P [id number] QRSd 72 QRS -21 QT 329 T 75 QTc 448 Conclusion Atrial-ventricular dual-paced complexes...other complexes also detected. Sinus. T wave inversion in I and aVL. No STEMI. I have reviewed and interpreted ECG and agree with software generated interpretation.
[2021-08-25 17:31] LABS: Abs Immature Grans 0.03 10^3/uL (0.0-0.06); Absolute Basophil Count 0.03 10^3/uL (0.0-0.2); Absolute Eosinophil Count 0.12 10^3/uL (0.0-0.7); Absolute Lymphocyte Count 1.98 10^3/uL (1.2-3.4); Absolute Monocyte Count 0.76 10^3/uL (0.1-0.8); Absolute Neutrophil Count 6.33 10^3/uL (1.2-6.7); Basophils % 0.3; Eosinophils % 1.3; HCT 41.1 % (36.0-46.0); HGB 13.9 g/dL (11.2-15.7); Immature Grans % 0.3; Lymphocytes % 21.4; MCHC 33.8 % (32.0-36.0); MCV 89 fL (80-95); Monocytes % 8.2; Neutrophils % 68.5; Platelet Count 207 10^3/uL (130-400); RBC 4.64 10^6/uL (3.93-5.22); RDW 12.9 % (11.7-14.6); RDW-SD 42.2 fL; WBC 9.25 10^3/uL (4.4-10.8)
[2021-08-25 17:51] LABS: ALT 29 U/L (14-59); AST 35 U/L (15-37); Albumin 3.3 g/dL (3.4-5.0); Alkaline Phosphatase 114 U/L (46-116); Anion Gap 10.3 mmol/L (3-11); BUN 17 mg/dL (7-18); Bilirubin, Total 0.7 mg/dL (0.2-1.0); CO2 25.7 mmol/L (21.0-32.0); CREATININE 1.1 mg/dL (0.55-1.02); Calcium 9.3 mg/dL (8.5-10.1); Chloride 102 mmol/L (98-107); Estimated GFR 47.32 (mL/min/1.73m2); Glucose 215 mg/dL (74-106); Magnesium 1.7 mg/dL (1.8-2.4); Sodium 138 mmol/L (136-145); Total Protein 7.4 g/dL (6.4-8.2)
--- NOTE | 2021-08-25 17:52 | W.ED.GENAD ---
Discharge Plan Disposition Patient Disposition: [facility] INPATIENT Condition: Stable Discharge Details Clinical Impression: Chest pain, Elevated troponin Primary Care Provider: Savanna Guillen ED Provider: Rajiv Butts Home Meds and New Rx's Prescriptions: No Action (DME) FreeStyle Saurabh 14 Day Sensor Kit See Rx Instructions .ROUTE .MEDSUPPLY Qty: 1 0RF Rx Instructions: As directed (DME) Poise Pads Pad See Rx Instructions .ROUTE .MEDSUPPLY Qty: 312 12RF Rx Instructions: As directed nitroglycerin [Nitrostat] 0.4 mg tablet, sublingual 0.4 mg Sublingual Q5 MIN PRN X3 PRN (Reason: chest pain) Qty: 50 6RF Rx Instructions: Use as directed (DME) diaper,brief,adult,disposable Misc See Rx Instructions .ROUTE .MEDSUPPLY Qty: 126 12RF Rx Instructions: Size LARGE Change As directed (DME) pen needle, diabetic [BD Ultra-Fine Marilyn Pen Needle] 32 gauge x 5/32 needle 1 unit Miscellaneous HS Qty: 200 3RF Rx Instructions: TO USE WITH LANTUS SOLOSTART PEN turmeric 400 mg capsule 400 mg PO DAILY Rx Instructions: turmeric with curcumin - recommended by Neuro for memory concerns. 06/18/20 EO donepezil 10 mg tablet 10 mg PO QHS Qty: 90 3RF albuterol sulfate [ProAir HFA] 90 mcg/actuation HFA aerosol inhaler 1 - 2 puff Inhalation Q4H PRN Qty: 1 12RF Rx Instructions: DISPENSE WITH SPACER DX: WHEEZE Paxlovid (EUA) 150-100 mg tablet See Rx Instructions PO PER PKG DIR Qty: 20 0RF Rx Instructions: PO PER PKG DIR pregabalin 50 mg capsule 50 mg PO BID Qty: 60 2RF pantoprazole 40 mg tablet,delayed release (DR/EC) 40 mg PO DAILY budesonide-formoterol [Symbicort] 160-4.5 mcg/actuation HFA aerosol inhaler 2 puff inhalation BID Qty: 10.2 6RF (DME) nebulizer and compressor Device See Rx Instructions .Route Qty: 1 0RF Rx Instructions: As directed Mucinex 1,200 mg tablet extended release 12hr 1,200 mg PO Q12H PRN (Reason: cold symptoms) Qty: 30 1RF Rx Instructions: Cough (DME) FreeStyle Saurabh 14 Day [place] Misc See Rx Instructions .ROUTE .MEDSUPPLY Qty: 2 12RF Rx Instructions: As directed isosorbide mononitrate 30 mg tablet extended release 24 hr 30 mg PO DAILY Qty: 90 3RF rosuvastatin [Crestor] 5 mg tablet 5 mg PO DAILY Qty: 90 3RF Rx Instructions: \ 02/19/20 5 mg daily cgc nortriptyline 10 mg capsule 10 mg PO HS Qty: 90 3RF Rx Instructions: for chronic pain and diabetic neuropathy insulin glargine [Lantus Solostar U-100 Insulin] 100 unit/mL (3 mL) insulin pen 50 unit Sub-Q BID Qty: 30 12RF albuterol sulfate 2.5 mg /3 mL (0.083 %) solution for nebulization 2.5 mg inhalation Q4H PRN (Reason: shortness of breath or wheezing) Qty: 180 3RF ropinirole 1 mg tablet 1 mg PO QPM Qty: 90 3RF Rx Instructions: TAKE 1 TABLET BY MOUTH 2 HOURS PRIOR TO BEDTIME memantine 10 mg tablet 10 mg PO BID Qty: 180 3RF clindamycin HCl 150 mg capsule 600 mg PO ONCE Qty: 4 0RF metoprolol tartrate 25 mg tablet 25 mg PO BID Qty: 180 3RF (DME) nebulizer accessories Kit See Rx Instructions .Route Qty: 2 6RF Rx Instructions: As directed aspirin 81 mg tablet,delayed release (DR/EC) 81 mg PO HS Qty: 90 3RF Medical Decision Making <Bebe Cantrell DO - Last Filed: 08/25/21 20:37> 1830 -- 85-year-old female with a history of coronary artery disease, hypertension, hyperlipidemia, coronary stents, CKD, fibromyalgia, obstructive sleep apnea, GERD, diabetes and obesity presents for substernal chest pain that started while sitting at home today. EKG on arrival notes a rate of 111 read as atrial ventricular dual placed complexes. Previous EKG noted pacer spikes. Patient denies a history of pacemaker. P waves are visible and EKG today. There is no STEMI. Suspect sinus tachycardia. Her pain is minimal at 3/10 at this time. She has no other associated symptoms. She is sitting comfortably. She confirms that she has DNR/DNI. Screening labs obtained on arrival due to high volume and acuity in the ED. Troponin noted to be elevated at 90. Magnesium 1.7, will replete. Will give additional aspirin to bring total dose to 324 mg. D-dimer at 726 with an age-adjusted cut off. Chest x-ray negative for acute disease. We will give a dose of nitro and fluids and plan for repeat troponin and EKG at 830pm. 1999 -- Pt c/o worsening pain. No relief with nitro x 2. Repeat EKG appears unchanged, no stemi. Repeat trop untrending to 105. Will initiate NSTEMI treatment with plavix 300mg PO and Heparin bolus and gtt and consult [facility]. 2029 -- case endorsed to Dr. Butts to follow-up with [facility] cardiology regarding recommendations with either plan for admission here or transfer for nstemi. Medical Records Medical records reviewed: Yes I reviewed the patient's medical records. ECG Data Attestation: I personally reviewed and interpreted this ECG (s) as follows: Interpretation: # 1 -- rate of 111, sinus, T wave inversion and <1mm St depressions in aVL, appears new compared to prior 2019, <1mm St depression in V6, no stemi. # 2 -- rate of 104, sinus, PVCs, no significant change from previous today, no stemi. <Rajiv Butts MD - Last Filed: 08/25/21 21:14> Lab Data Lab results reviewed: Yes I reviewed the patient's lab results. Lab results narrative: Received signout from Dr. Cantrell. Please see her note regarding details of the presentation. Case discussed with Dr. Goncalves of [facility] cardiology. He recommends close surveillance of the patient, agrees with admission and treatment for NSTEMI. Case discussed with Dr. Courtney, patient to be admitted Labs: Laboratory Results - last 24 hr 08/25/21 08/25/21 08/25/21 17:25 17:25 17:25 WBC 9.25 RBC 4.64 Hgb 13.9 Hct 41.1 MCV 89 MCH 30.0 MCHC 33.8 RDW 12.9 Plt Count 207 MPV 11.0 Immature Gran % 0.3 Neutrophils % 68.5 Lymphocytes % 21.4 Monocytes % 8.2 Eosinophils % 1.3 Basophils % 0.3 Nucleated RBC % 0.0 Absolute Neutrophils 6.33 Absolute Lymphocytes 1.98 Absolute Monocytes 0.76 Absolute Eosinophils 0.12 Absolute Basophils 0.03 D-Dimer 726 H Sodium 138 Potassium 4.7 Chloride 102 Carbon Dioxide 25.7 Anion Gap 10.3 BUN 17 Creatinine 1.1 H Estimated GFR/1.73 m2 47.32 Glucose 215 H Calcium 9.3 Magnesium 1.7 L Total Bilirubin 0.7 AST 35 ALT 29 Alkaline Phosphatase 114 Troponin I 90 H* Total Protein 7.4 Albumin 3.3 L COVID-19 Source SARS-CoV-2 (PCR) 08/25/21 08/25/21 18:02 19:34 WBC RBC Hgb Hct MCV MCH MCHC RDW Plt Count MPV Immature Gran % Neutrophils % Lymphocytes % Monocytes % Eosinophils % Basophils % Nucleated RBC % Absolute Neutrophils Absolute Lymphocytes Absolute Monocytes Absolute Eosinophils Absolute Basophils D-Dimer Sodium Potassium Chloride Carbon Dioxide Anion Gap BUN Creatinine Estimated GFR/1.73 m2 Glucose Calcium Magnesium Total Bilirubin AST ALT Alkaline Phosphatase Troponin I 105 H* Total Protein Albumin COVID-19 Source Nasal/Nares SARS-CoV-2 (PCR) Negative HPI <Bebe Cantrell DO - Last Filed: 08/25/21 20:37> General Mode of arrival: ambulatory. Date/Time Provider Initiated Documentation: 08/25/21 17:14. Limitations to Documentation: no limitations. Information obtained by: patient. HPI Narrative: Patient is an 85-year-old female with a history of coronary artery disease, GERD, fibromyalgia, hypertension, hyperlipidemia, sleep apnea, diabetes, coronary stent placement presents for chest pain since this afternoon while sitting. Patient admits to recent COVID diagnosis on August 08 that she feels has completely resolved. Patient states her symptoms of COVID are mainly cough and fatigue which she states has improved. Patient states she was walking leisurely at home when she sat down and noted substernal chest heaviness. She admits to some radiation of pain into her right arm associated with hand tingling. She denies any fever, new cough, shortness of breath, nausea, vomiting or dizziness. She states she took a nitro at home without relief. Related Data Home Medications Medication Instructions Recorded Confirmed diaper,brief,adult,disposable #126 ea 12/24/19 08/25/21 flash glucose sensor (FreeStyle #1 ea 12/24/19 08/25/21 Saurabh 14 Day Sensor kit) incontinence pad, liner, disp #312 ea 12/24/19 08/25/21 (Poise Pads) nitroglycerin 0.4 mg sublingual 0.4 mg sublingual Q5 MIN PRN X3 12/24/19 08/25/21 tablet (Nitrostat) PRN chest pain #50 tabs pen needle, diabetic 32 gauge x #200 ea 06/18/20 08/25/2132 (BD Ultra-Fine Marilyn Pen Needle) turmeric 400 mg capsule 400 mg PO DAILY 06/18/20 08/25/21 flash glucose scanning reader #2 ea 07/03/20 08/25/21 (FreeStyle Saurabh 14 Day [place]) isosorbide mononitrate 30 mg 30 mg PO DAILY #90 tabs 11/11/20 08/25/21 tablet,extended release 24 hr rosuvastatin 5 mg tablet (Crestor) 5 mg PO DAILY #90 tabs 01/12/21 08/25/21 nortriptyline 10 mg capsule 10 mg PO HS #90 caps 02/09/21 08/25/21 donepezil 10 mg tablet 10 mg PO QHS #90 tabs 04/20/21 08/25/21 albuterol sulfate 90 mcg/actuation 1 - 2 puff inhalation Q4H PRN ##1 05/07/21 08/25/21 aerosol inhaler (ProAir HFA) pregabalin 50 mg capsule 50 mg PO BID #60 caps 06/03/21 08/25/21 pantoprazole 40 mg tablet,delayed 40 mg PO DAILY 06/04/21 08/25/21 release insulin glargine 100 unit/mL (3 50 unit (0.5 mL) subcut BID #30 mL 06/08/21 08/25/21 mL) subcutaneous pen (Lantus Solostar U-100 Insulin) budesonide-formoterol HFA 160 2 puff inhalation BID #10.2 grams 06/09/21 08/25/21 mcg-4.5 mcg/actuation aerosol inhaler (Symbicort) guaifenesin 1,200 mg tablet, 1,200 mg PO Q12H PRN cold symptoms 06/12/21 08/25/21 extended release 12 hr (Mucinex) #30 tabs albuterol sulfate 2.5 mg/3 mL 2.5 mg (3 mL) inhalation Q4H PRN 06/17/21 08/25/21 (0.083 %) solution for nebulization shortness of breath or wheezing #180 mL ropinirole 1 mg tablet 1 mg PO QPM #90 tabs 06/23/21 08/25/21 memantine 10 mg tablet 10 mg PO BID #180 tabs 07/06/21 08/25/21 clindamycin HCl 150 mg capsule 600 mg PO ONCE dental prophylactic 07/12/21 08/25/21 #4 caps metoprolol tartrate 25 mg tablet 25 mg PO BID #180 tabs 07/14/21 08/25/21 nebulizer and compressor #1 ea 07/16/21 08/25/21 nebulizer accessories #2 ea 07/21/21 08/25/21 nirmatrelvir 150 mg-ritonavir 100 See Rx Instructions PO PER PKG DIR 08/08/21 08/25/21 mg tablet (EUA) (Paxlovid) #20 tabs aspirin 81 mg tablet,delayed 81 mg PO HS #90 tabs 08/25/21 08/25/21 release Previous Rx's Medication Instructions Recorded diaper,brief,adult,disposable #126 ea 12/24/19 flash glucose sensor (FreeStyle #1 ea 12/24/19 Saurabh 14 Day Sensor kit) incontinence pad, liner, disp #312 ea 12/24/19 (Poise Pads) nitroglycerin 0.4 mg sublingual 0.4 mg sublingual Q5 MIN PRN X3 12/24/19 tablet (Nitrostat) PRN chest pain #50 tabs pen needle, diabetic 32 gauge x #200 ea 06/18/20 (BD Ultra-Fine Marilyn Pen Needle) flash glucose scanning reader #2 ea 07/03/20 (FreeStyle Saurabh 14 Day [place]) isosorbide mononitrate 30 mg 30 mg PO DAILY #90 tabs 11/11/20 tablet,extended release 24 hr rosuvastatin 5 mg tablet (Crestor) 5 mg PO DAILY #90 tabs 01/12/21 nortriptyline 10 mg capsule 10 mg PO HS #90 caps 02/09/21 donepezil 10 mg tablet 10 mg PO QHS #90 tabs 04/20/21 albuterol sulfate 90 mcg/actuation 1 - 2 puff inhalation Q4H PRN ##1 05/07/21 aerosol inhaler (ProAir HFA) pregabalin 50 mg capsule 50 mg PO BID #60 caps 06/03/21 insulin glargine 100 unit/mL (3 50 unit (0.5 mL) subcut BID #30 mL 06/08/21 mL) subcutaneous pen (Lantus Solostar U-100 Insulin) budesonide-formoterol HFA 160 2 puff inhalation BID #10.2 grams 06/09/21 mcg-4.5 mcg/actuation aerosol inhaler (Symbicort) guaifenesin 1,200 mg tablet, 1,200 mg PO Q12H PRN cold symptoms 06/12/21 extended release 12 hr (Mucinex) #30 tabs albuterol sulfate 2.5 mg/3 mL 2.5 mg (3 mL) inhalation Q4H PRN 06/17/21 (0.083 %) solution for nebulization shortness of breath or wheezing #180 mL ropinirole 1 mg tablet 1 mg PO QPM #90 tabs 06/23/21 memantine 10 mg tablet 10 mg PO BID #180 tabs 07/06/21 clindamycin HCl 150 mg capsule 600 mg PO ONCE dental prophylactic 07/12/21 #4 caps metoprolol tartrate 25 mg tablet 25 mg PO BID #180 tabs 07/14/21 nebulizer and compressor #1 ea 07/16/21 nebulizer accessories #2 ea 07/21/21 nirmatrelvir 150 mg-ritonavir 100 See Rx Instructions PO PER PKG DIR 08/08/21 mg tablet (EUA) (Paxlovid) #20 tabs aspirin 81 mg tablet,delayed 81 mg PO HS #90 tabs 08/25/21 release Allergies Allergy/AdvReac Type Severity Reaction Status Date / Time Penicillins Allergy Severe skin rash Verified 08/08/21 12:50 atorvastatin AdvReac Intermediate muscle Verified 08/08/21 12:50 aches metformin AdvReac Intermediate Diarrhea Verified 08/08/21 12:50 oxybutynin AdvReac Intermediate makes Verified 08/08/21 12:50 memory worse General Stated Complaint: Chest Pain RAFAELA: 3 Review of Systems <Bebe Cantrell DO - Last Filed: 08/25/21 20:37> All systems reviewed & are unremarkable except as noted in HPI and below Constitutional Constitutional: Denies chills, Denies excessive sweating, Denies fatigue, Denies fever(s), Denies weakness and Denies weight loss Eyes Eyes: Reports system reviewed and no additional complaints, except as documented and Denies blurry vision ENT Ears, Nose, Mouth, and Throat: Denies vertigo, Denies dizziness, Denies otalgia, Denies nasal congestion, Denies sore throat and Denies throat swelling Cardiovascular Cardiovascular: Reports chest pain, Denies syncope, Denies rapid heart rate and Denies dyspnea Respiratory Respiratory: Denies chest congestion, Denies cough, Denies pain on inspiration and Denies dyspnea Gastrointestinal Gastrointestinal: Denies abdominal pain, Denies diarrhea and Denies vomiting Genitourinary Genitourinary: Denies hematuria, Denies dysuria and Denies flank pain Musculoskeletal Musculoskeletal: Denies back pain and Denies joint swelling Integumentary/Breasts Skin/Breast: Denies lesions and Denies rash Neurologic Neurologic: Denies behavioral changes, Denies confusion, Denies vertigo, Denies dizziness, Denies syncope, Denies localized weakness and Denies weakness Psychiatric Psychiatric: Denies behavioral changes, Denies confusion and Denies depression Endocrine Endocrine: Denies excessive sweating and Denies fatigue Hematologic/Lymphatic Hematologic/Lymphatic: Denies easy bruising and Denies lymphadenopathy Allergic/Immunologic Allergic/Immunologic: Denies throat swelling PFSH <Bebe Cantrell DO - Last Filed: 08/25/21 20:37> All Active Problems (Updated 08/25/21 @ 20:37 by Bebe Cantrell DO) Chest pain (Acute) Elevated troponin (Acute) SARS-CoV-2 positive (Acute ~08/07/21) Asthma (Chronic) Uncontrolled diabetes mellitus (Acute) Non-proliferative diabetic retinopathy, mild, right eye (Acute) Obesity (BMI 30.0-34.9) (Acute) Heart murmur (Acute) Diabetes mellitus with neuropathy (Acute) goal 7.5; insulin begun 07/2016 Alzheimer's dementia without behavioral disturbance (Acute) 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, 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; 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 Pylori Status post total knee replacement, right (Acute) DOS: 06/26/2018 Dr. Turner Esophagitis (Acute 12/13/16) Dehydration (Acute) Transient global amnesia (Acute) HEAD (dyspnea on exertion) (Acute) Chest pain at rest (Acute) Status post total knee replacement (Acute) ASCVD (arteriosclerotic cardiovascular disease) (Acute) Cardiloogy Stefan Munguia Carpal tunnel syndrome on right (Acute) s/p ECTR DOS: 03/04/20 Derangement of left acromioclavicular joint (Acute) Obesity (Chronic) Tendonitis of left rotator cuff (Acute) Colitis (Acute) resolved. Primary osteoarthritis of right knee (Chronic) Tinnitus of both ears (Acute 09/26/14) Skin lesion of left ear (Acute 10/31/15) Sensorineural hearing loss, bilateral (Acute 09/13/13) Sciatica (Acute 02/19/11) Primary osteoarthritis involving multiple joints (Acute 10/30/14) Diverticulitis of colon (Acute 02/19/11) RECURRENT Diabetic neuropathy (Chronic 01/24/14) peripheral neuropathy Medical History JEMIMA (acute kidney injury) Alzheimer's dementia Angina at rest (02/19/11) very rare, follow with Dr. Fiore Atherosclerosis of [place] coronary artery of [place] heart with angina pectoris UNSTABLE ANGINA, CATH 01/2011 JOHN to OM1 EF 65%. MPI 06/10/11 no ischemia, sm septal defect, nl EF CAD (coronary artery disease) Chest pain (04/28/14) Chronic kidney disease, stage III (moderate) Edema (09/05/15) nl EF, proably venous Essential hypertension (07/27/12) goal 140/90 Fibromyalgia (12/18/14) Dx 12/[address] Kraft Rheum [facility] Gastritis, chronic (12/13/16) with gastric polyps. (12/13/16 report of operation). NC GERD (gastroesophageal reflux disease) H/O diverticulitis of colon Hearing loss of both ears History of rheumatic fever Hyperlipidemia (02/19/11) LDL baseline 127 intol ator, simv 20mg Hypertension Loss of equilibrium Mild obstructive sleep apnea (06/29/20) Old myocardial infarction 1999 RANDEE (obstructive sleep apnea) Osteopenia (02/19/11) T -1.6 Osteoporosis Pneumonia Positive cardiac stress test (06/30/17) has sched cardiac cath 07/[address] Arnett. Pulmonary edema Rectal bleed Sciatica Syncope (05/15/14) neg w/u Type 2 diabetes mellitus Urinary incontinence (06/05/14) [facility] Colonoscopy - MAC (12/13/16) Coronary Stent (07/12/17) [facility]. Kenyon Arnett MD report date . procedures: coronary angiography,left heart catherization,coronary stent insertion. x2 EGD - MAC (12/13/16) Postsurgical percutaneous transluminal coronary angioplasty status 2008 S/P right knee arthroscopy Dr. Galloway >10 years Status post implantation of urinary electronic stimulator device Tonsillectomy Family History Father , [place] Heart disease Hypertension Sister , age 76 Stomach cancer Colon cancer Mother , at age 102 Hypertension Heart disease Paternal Grandfather Stroke Niece No problems noted. Social History Smoking/Tobacco Use Status: Former Tobacco Use Quit Date: 02/15/68 Tobacco: How many years used: 18 Second Hand Exposure: No Smoking risk assessment performed?: Yes Alcohol Intake: current Alcohol Intake frequency: holidays/special occasions only Alcohol type: wine Drug use: Never Substance use type: does not use Adopted: No Caregiver/Support person: Yes Foster care: No Household members: friend(s) Housing: house Number of Children: 0 Communication Needs: Hard of Hearing and Corrective Lenses Education Level: high school Do you need help understanding health information?: Always current occupation: retired Pets and animals: Yes Pets and animals: cat(s) Sexually active: No Do you think of yourself as: straight/heterosexual Current gender identity: female What is your relationship status?: living with partner How often do you get together with friends or relatives?: once per week Do you belong to any clubs or organized social groups?: yes Panel score (0-1 are the most socially isolated patients): 2 What type of physical activity do you participate in: walking and sedentary lifestyle Duration: 15-30 minutes/day Frequency: 1-2 times per week Shannan/Evangelical: Evangelical Special shannan needs: No Seatbelt use: always Drive intox or ride w/intox 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 [facility] in [place], [place]. Jessenia is from [place]. They retired here, not sure when a long time ago. 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 Pleasant. Worked on paperwork at 03/24/21 visit: Jessenia is health care agent; Sonia chose DNR/DNI but with limited interventions included IVF and antibiotics. Exam <Bebe Cantrell DO - Last Filed: 08/25/21 20:37> Const General: cooperative Orientation: alert, awake and oriented x3 HENMT Head: normal to inspection Ears: hearing grossly normal bilaterally, external ears normal and TM's normal bilaterally General nose exam: external nose normal Face and sinus: normal facial exam Mouth: oral mucosae normal Teeth and gingiva: dentition normal Throat: posterior oropharynx normal Eyes General: appearance normal, both eyes and all related structures Eyelids: eyelids normal Pupils: PERRL EOM: EOM intact bilaterally Neck Neck: normal visual inspection Lymphatic: no lymphadenopathy noted Chest Chest: normal inspection of the chest Resp Effort & Inspection: normal respiratory effort and able to speak in complete sentences Auscultation: clear to auscultation bilaterally Cardio Rate: regular rate Rhythm: regular rhythm GI Inspection: normal to inspection Palpation: soft, not firm, no guarding, no hepatosplenomegaly, no masses and nontender Auscultation: normal bowel sounds Back/Spine/Pelvis Back: no CVA tenderness Skin General skin exam: no rashes or lesions noted Neuro General: patient alert and patient awake Cognition: normal cognition Speech: speech normal Gait: normal gait Motor: muscle tone normal throughout Sensory Exam: no sensory deficits noted Extrem General: normal to inspection, full ROM, capillary refill normal and no edema Psych Appearance: grossly normal Mental Status: mental status grossly normal Speech and Movement: speech and movement normal Affect: normal affect Thought Process: normal Course <Bebe Cantrell, DO - Last Filed: 08/25/21 20:37> Vital Signs Vital signs: Vital Signs Pulse 108 H 08/25/21 17:04 Respiratory Rate 20 08/25/21 17:04 Blood Pressure 136/96 H 08/25/21 17:04 Pulse Oximetry 99 08/25/21 17:04 Pulse 108 H 08/25/21 17:04 Respiratory Rate 17 08/25/21 17:28 Respiratory Effort Non-Labored 08/25/21 17:30 Respiratory Depth Normal 08/25/21 17:28 Respiratory Pattern Normal 08/25/21 17:28 Blood Pressure 136/96 H 08/25/21 17:04 Blood Pressure Position Sitting 08/25/21 17:04 Pulse Oximetry 99 08/25/21 17:04 Oxygen Delivery Method Room Air 08/25/21 17:04 Oxygen Flow Rate 0 08/25/21 17:04 Lab/Test Results Lab/Test Results: Laboratory Tests Range/Units 08/25/21 17:25 WBC (4.4-10.8) 10^3/uL 9.25 RBC (3.93-5.22) 10^6/uL 4.64 Hgb (11.2-15.7) g/dL 13.9 Hct (36.0-46.0) % 41.1 MCV (80-95) fL 89 MCH (27.0-33.0) pg 30.0 MCHC (32.0-36.0) % 33.8 RDW (11.7-14.6) % 12.9 Plt Count (130-400) 10^3/uL 207 MPV (8.0-11.0) fL 11.0 Immature Gran % 0.3 Neutrophils % 68.5 Lymphocytes % 21.4 Monocytes % 8.2 Eosinophils % 1.3 Basophils % 0.3 Nucleated RBC % (0.0-0.3) % 0.0 Absolute Neutrophils (1.2-6.7) 10^3/uL 6.33 Absolute Lymphocytes (1.2-3.4) 10^3/uL 1.98 Absolute Monocytes (0.1-0.8) 10^3/uL 0.76 Absolute Eosinophils (0.0-0.7) 10^3/uL 0.12 Absolute Basophils (0.0-0.2) 10^3/uL 0.03 Sign Out <Bebe Cantrell DO - Last Filed: 08/25/21 20:37> Sign Out Data: Sign Out Comment: Follow-up on repeat troponin. Will need admission for serial troponins and EKGs. If becomes hemodynamically unstable or has significant EKG changes, consider transfer. Last updated by Bebe Cantrell DO at 08/25/21 20:07
[2021-08-25 17:55] LABS: Potassium 4.7 mmol/L (3.5-5.1); Troponin I 90 ng/L (<or=60)
--- NOTE | 2021-08-25 18:02 | DI.VRAD_ITS ---
PROCEDURE INFORMATION: Exam: XR Chest Exam date and time: 08/25/2021 5:25 PM Age: 85 years old Clinical indication: Chest wall pain TECHNIQUE: Imaging protocol: Radiologic exam of the chest. Views: 1 view. COMPARISON: CR XR CHEST 2V PA LATERAL 06/17/2021 11:29 AM FINDINGS: Lungs: no consolidation. Pleural spaces: no pneumothorax. no sizable pleural effusion. Heart/Mediastinum: cardiomediastinal silhouette similar/stable. Bones/joints: no acute displaced fracture. Other findings: similar right hemidiaphragmatic elevation. IMPRESSION: No acute cardiopulmonary findings. Dictated and Authenticated by: Fernando Serrato MD. Ordering:EMERALD Spence MD
[2021-08-25 18:06] LABS: D-Dimer 726 ng/mlFEU (<500)
[2021-08-25 18:09] LABS: Source Nasal/Nares
[2021-08-25] MEDS: MAGNESIUM SULFATE 1 GM/100 ML BAG IVPB (18:57)
[2021-08-25 18:58] LABS: COVID-19 PCR Negative (Negative)
[2021-08-25] MEDS: Aspirin 81 MG CHEW 243 MG CH (19:07)
[2021-08-25] MEDS: nitroGLYcerin 0.4 MG TAB SL (19:07)
[2021-08-25] MEDS: Normal Saline 250 ML 500 ML IV (19:07)
[2021-08-25] MEDS: MORPHine 4 MG/ML SYR IVP (19:43)
--- NOTE | 2021-08-25 19:44 | NUR.NOTE ---
Nursing Note: 1929 patient reported increase in chest pain, appears visibly uncomfortable. SL Nitro x2 with no relief. EKG and trop done early per Dr. Cantrell. 4mg morphine given.
[2021-08-25 20:13] LABS: Troponin I 105 ng/L (<or=60)
--- NOTE | 2021-08-25 20:15 | RT.EKG_ITS ---
APPROVED REPORT Exam: Resting ECG Reason for Exam: chest pain Patient Location: E HR:104 bpm ECG Measurements Heart Rate 104 AXIS NE 150 P 46 QRSd 76 QRS -18 QT 336 T 69 QTc 442 Conclusion Atrial-ventricular dual-paced complexes...other complexes also detected Borderline ST depression, lateral leads...ST <-0.07mV, I aVL V5 V6 ST elevation, consider inferior injury...ST >0.08mV, II III aVF. Sinus. PVCs. No significant change from previous ekg. No STEMI. I have reviewed and interpreted ECG and agree with software generated interpretation.
[2021-08-25] MEDS: Clopidogrel 300 MG TAB PO (20:56)
--- NOTE | 2021-08-25 21:00 | RT.EKG_ITS ---
APPROVED REPORT Exam: Resting ECG Reason for Exam: Patient Location: E HR:102 bpm ECG Measurements Heart Rate 102 AXIS MA 159 P 55 QRSd 74 QRS -19 QT 341 T 70 QTc 444 Conclusion Sinus tachycardia.. Inferior infarct Q >35mS, II III aVF
[2021-08-25 21:24] LABS: PTT Activated 19.2 sec (21.0-27.5); Prothrombin Time 10.3 sec (9.3-11.0)
[2021-08-25 21:26] LABS: Source Nasal/Nares
--- NOTE | 2021-08-25 21:29 | HPE_ITS ---
Date of service: 08/25/21 Time of Service: 21:29 Assessment and Plan Assessment and plan (1) NSTEMI (non-ST elevated myocardial infarction): Start date: 08/25/21 Status: Acute Assessment and plan: This is an 85-year-old lady presenting to the ED nitroglycerin responsive chest pain episode at home and having some discomfort in the ED slightly elevated troponin and after consultation with cardiology [facility] [place] after loading dose of Plavix will be continued on daily dose and not a medication regimen for medical therapy for CAD which is known. She is comfortable and this appears to be atypical. She is a DNR/DNI and full work-up and interventions will be deter mined by trending troponins and symptoms. 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 Maximize medical therapy this patient with present care, hold question whether she would want interventions other than medical therapy. This could be an ongoing discussion. (3) Uncontrolled diabetes mellitus: Status: Chronic Assessment and plan: By history poor control at risk for advancing CAD in this patient with sedentary lifestyle and medical therapy for CAD. During hospitalization will cover with short acting insulin mealtime coverage on sliding scale. (4) Obesity (BMI 30.0-34.9): Status: Chronic Assessment and plan: Secondary to sedentary lifestyle and poor control diabetes which is respiratory for advancing CAD. Patient would do well to lose weight but this is unlikely. (5) Alzheimer's dementia without behavioral disturbance: Status: Chronic Assessment and plan: Continue outpatient medical therapy the patient not had any behavioral abnormalities with stable Aricept and Namenda. He does live with a partner and full-time caregiver. She is fairly sedentary by history. History of Present Illness History of Present Illness Chief Complaint: Resting chest pain with CAD Narrative: This is an 85-year-old female patient presented to the ED after having nonexertional chest discomfort which responded to nitroglycerin sublingually at home. He had recurrent chest discomfort and reported to the ED for evaluation. He does not have a slight elevation in her troponin and was initiated on heparin infusion with loading dose of Plavix with her usual other medical therapy continued with no recurrent chest pain in the ED. In the ED when she first reported she did not respond to nitroglycerin sublingual. He has a history of dementia which is mild on treatment and lives with a partner who is there at all times. She also has a history of CAD status post stenting in the recent past years and further evaluation this last year which was unrevealing with no change in therapy. She is on daily Imdur in the morning. She also has GERD and has nonexertional chest discomfort could have been esophageal spasm but her troponins were slightly elevated prompting this admission. He recently had COVID diagnosed August 08 and was on Paxlovid for 5-day course which has been c ompleted. The patient has had no recurrent chest discomfort during her hospital stay and today is on heparin infusion with trending troponins. She is a DNR/DNI. She does have uncontrolled diabetes long-term and advancing dementia. Further review of systems positive for patient is obese and fairly sedentary, she has had no increase in edema recently and no exertional symptoms reported though she is sedentary. Review of Systems Narrative: 13 point review of systems otherwise unrevealing or stable. 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; 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 Pylori Status post total knee replacement, right (Acute) DOS: 06/26/2018 Dr. Turner Esophagitis (Acute 12/13/16) Dehydration (Acute) Transient global amnesia (Acute) HEAD (dyspnea on exertion) (Acute) Chest pain at rest (Acute) Status post total knee replacement (Acute) ASCVD (arteriosclerotic cardiovascular disease) (Acute) Cardiloogy [place] Munguia Carpal tunnel syndrome on right (Acute) s/p ECTR DOS: 03/04/20 Derangement of left acromioclavicular joint (Acute) Obesity (Chronic) Tendonitis of left rotator cuff (Acute) Colitis (Acute) resolved. Primary osteoarthritis of right knee (Chronic) Tinnitus of both ears (Acute 09/26/14) Skin lesion of left ear (Acute 10/31/15) Sensorineural hearing loss, bilateral (Acute 09/13/13) Sciatica (Acute 02/19/11) Primary osteoarthritis involving multiple joints (Acute 10/30/14) Diverticulitis of colon (Acute 02/19/11) RECURRENT Diabetic neuropathy (Chronic 01/24/14) peripheral neuropathy Medical History JEMIMA (acute kidney injury) Alzheimer's dementia Angina at rest (02/19/11) very rare, follow with Dr. 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 MPI 06/10/11 no ischemia, sm septal defect, nl EF CAD (coronary artery disease) Chest pain (04/28/14) Chronic kidney disease, stage III (moderate) Edema (09/05/15) nl EF, proably venous Essential hypertension (07/27/12) goal 140/90 Fibromyalgia (12/18/14) Dx 12/[address] Kraft Rheum [facility] [place] Gastritis, chronic (12/13/16) with gastric polyps. (12/13/16 report of operation). NC GERD (gastroesophageal reflux disease) H/O diverticulitis of colon Hearing loss of both ears History of rheumatic fever Hyperlipidemia (02/19/11) LDL baseline 127 intol ator, simv 20mg Hypertension Loss of equilibrium Mild obstructive sleep apnea (06/29/20) Old myocardial infarction 1999 RANDEE (obstructive sleep apnea) Osteopenia (02/19/11) T -1.6 Osteoporosis Pneumonia Positive cardiac stress test (06/30/17) has sched cardiac cath 07/[address] Arnett. Pulmonary edema Rectal bleed Sciatica Syncope (05/15/14) neg w/u Type 2 diabetes mellitus Urinary incontinence (06/05/14) Sacral stimulator: Dr Stokes in [facility] Surgical History Colonoscopy - MAC (12/13/16) Coronary Stent (07/12/17) [facility] [place]. Kenyon Arnett MD report date . procedures: coronary angiography,left heart catherization,coronary stent insertion. x2 EGD - MAC (12/13/16) Postsurgical percutaneous transluminal coronary angioplasty status 2008 S/P right knee arthroscopy Dr. Galloway >10 years Status post implantation of urinary electronic stimulator device Tonsillectomy Family History Father , [place] Heart disease Hypertension Sister , age 76 Stomach cancer Colon cancer Mother , at age 102 Hypertension Heart disease Paternal Grandfather Stroke Niece No problems noted. Social History Smoking/Tobacco Use Status: Former Tobacco Use Quit Date: 02/15/68 Tobacco: How many years used: 18 Second Hand Exposure: No Smoking risk assessment performed?: Yes Alcohol Intake: current Alcohol Intake frequency: holidays/special occasions only Alcohol type: wine Drug use: Never Substance use type: does not use Adopted: No Caregiver/Support person: Yes Foster care: No Household members: friend(s) Housing: house Number of Children: 0 Communication Needs: Hard of Hearing and Corrective Lenses Education Level: high school Do you need help understanding health information?: Always current occupation: retired Pets and animals: Yes Pets and animals: cat(s) Sexually active: No Do you think of yourself as: straight/heterosexual Current gender identity: female What is your relationship status?: living with partner How often do you get together with friends or relatives?: once per week Do you belong to any clubs or organized social groups?: yes Panel score (0-1 are the most socially isolated patients): 2 What type of physical activity do you participate in: walking and sedentary lifestyle Duration: 15-30 minutes/day Frequency: 1-2 times per week Shannan/Yarsani: Rastafari Special shannan needs: No Seatbelt use: always Drive intox or ride w/intox coach driver: No Working smoke detector in home: Yes Fire extinguisher in home: Yes Carbon monox detector in home: Yes Do you feel safe at home: Yes Do you feel safe in your relationship?: Yes Additional Social history: Sonia has lived with her partner, Jessenia, for more than 60 years. They met at the [facility] in [place], [place]. Jessenia is from [place]. They retired here, not sure when a long time ago. 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 Pleasant. Worked on paperwork at 03/24/21 visit: Jessenia is health care agent; Sonia chose DNR/DNI but with limited interventions included IVF and antibiotics. Meds Allergies and Home Medications Allergies Allergy/AdvReac Type Severity Reaction Status Date / Time Penicillins Allergy Severe skin rash Verified 08/08/21 12:50 atorvastatin AdvReac Intermediate muscle Verified 08/08/21 12:50 aches metformin AdvReac Intermediate Diarrhea Verified 08/08/21 12:50 oxybutynin AdvReac Intermediate makes Verified 08/08/21 12:50 memory worse Home Medications Medication Instructions Recorded Confirmed Type diaper,brief,adult,disposable #126 ea 12/24/19 08/25/21 Rx flash glucose sensor (FreeStyle #1 ea 12/24/19 08/25/21 Rx Saurabh 14 Day Sensor kit) incontinence pad, liner, disp #312 ea 12/24/19 08/25/21 Rx (Poise Pads) nitroglycerin 0.4 mg sublingual 0.4 mg sublingual Q5 MIN PRN X3 12/24/19 08/25/21 Rx tablet (Nitrostat) PRN chest pain #50 tabs pen needle, diabetic 32 gauge x #200 ea 06/18/20 08/25/21 Rx 5/32 (BD Ultra-Fine Marilyn Pen Needle) turmeric 400 mg capsule 400 mg PO DAILY 06/18/20 08/25/21 History flash glucose scanning reader #2 ea 07/03/20 08/25/21 Rx (FreeStyle Saurabh 14 Day [place]) isosorbide mononitrate 30 mg 30 mg PO DAILY #90 tabs 11/11/20 08/25/21 Rx tablet,extended release 24 hr rosuvastatin 5 mg tablet (Crestor) 5 mg PO DAILY #90 tabs 01/12/21 08/25/21 Rx nortriptyline 10 mg capsule 10 mg PO HS #90 caps 02/09/21 08/25/21 Rx donepezil 10 mg tablet 10 mg PO QHS #90 tabs 04/20/21 08/25/21 Rx albuterol sulfate 90 mcg/actuation 1 - 2 puff inhalation Q4H PRN ##1 05/07/21 08/25/21 Rx aerosol inhaler (ProAir HFA) pregabalin 50 mg capsule 50 mg PO BID #60 caps 06/03/21 08/25/21 Rx pantoprazole 40 mg tablet,delayed 40 mg PO DAILY 06/04/21 08/25/21 History release insulin glargine 100 unit/mL (3 50 unit (0.5 mL) subcut BID #30 mL 06/08/21 08/25/21 Rx mL) subcutaneous pen (Lantus Solostar U-100 Insulin) budesonide-formoterol HFA 160 2 puff inhalation BID #10.2 grams 06/09/21 08/25/21 Rx mcg-4.5 mcg/actuation aerosol inhaler (Symbicort) guaifenesin 1,200 mg tablet, 1,200 mg PO Q12H PRN cold symptoms 06/12/21 08/25/21 Rx extended release 12 hr (Mucinex) #30 tabs albuterol sulfate 2.5 mg/3 mL 2.5 mg (3 mL) inhalation Q4H PRN 06/17/21 08/25/21 Rx (0.083 %) solution for nebulization shortness of breath or wheezing #180 mL ropinirole 1 mg tablet 1 mg PO QPM #90 tabs 06/23/21 08/25/21 Rx memantine 10 mg tablet 10 mg PO BID #180 tabs 07/06/21 08/25/21 Rx clindamycin HCl 150 mg capsule 600 mg PO ONCE dental prophylactic 07/12/21 08/25/21 Rx #4 caps metoprolol tartrate 25 mg tablet 25 mg PO BID #180 tabs 07/14/21 08/25/21 Rx nebulizer and compressor #1 ea 07/16/21 08/25/21 Rx nebulizer accessories #2 ea 07/21/21 08/25/21 Rx nirmatrelvir 150 mg-ritonavir 100 See Rx Instructions PO PER PKG DIR 08/08/21 08/25/21 Rx mg tablet (EUA) (Paxlovid) #20 tabs aspirin 81 mg tablet,delayed 81 mg PO HS #90 tabs 08/25/21 08/25/21 Rx release Exam Narrative Exam Narrative: General: Patient appears appropriate for age, moderately obese in no acute distress and alert and oriented at least to person and place. She is confabulating at times during conversation. HEENT: Normocephalic, eyes with pupils equal and reactive to light symmetrically, extraocular movements intact and sclera anicteric. Oropharynx with slightly dry mucosa. Neck: Supple without JVD. Back: Stooped posture without CVA tenderness. Lungs: Fair aeration and clear with no focalized rales or rhonchi. Breast: Exam deferred. Heart: Regular rate and rhythm with systolic murmur over left sternal border, no gallops or rubs. Abdomen: Obese contour, soft and nontender to palpation with no palpable hepatosplenomegaly. Rectal: Exam deferred. Extremities: Without clubbing, cyanosis or grossly pitting edema. Skin: Pale, warm and dry with no bruising. Neuro: Cranial nerves II to XII grossly intact, no focalizing motor deficits. No tremor. Psych: Normal affect and slightly euphoric at times, good eye contact and at times confabulation during conversation. Normal mood. No abnormal thought processes. Remote memory intact and recent memory less intact. Results Imaging Imaging Studies: EXAM:? XR PORTABLE CHEST AP CLINICAL HISTORY: ? chest pain, r/o acute disease. ? TECHNIQUE:? 2D digital imaging was performed. COMPARISON:? CR XR CHEST 2V PA ? LATERAL from 02/12/2021 CR XR CHEST 2V PA ? LATERAL from 06/17/2021 FINDINGS: Single AP portable view. Right hemidiaphragm again noted be elevated, unchanged Heart size is upper normal.? The mediastinum is not widened. Lungs are clear.? No infiltrates nor obvious pleural effusions. IMPRESSION: No acute pulmonary findings on this single AP portable view of the chest. Elevated right hemidiaphragm again noted. Labs Result diagrams: 08/26/21 06:25 08/26/21 06:25 Labs: Laboratory Results - last 24 hr 08/25/21 08/25/21 08/25/21 17:25 17:25 17:25 WBC 9.25 RBC 4.64 Hgb 13.9 Hct 41.1 MCV 89 MCH 30.0 MCHC 33.8 RDW 12.9 Plt Count 207 MPV 11.0 Immature Gran % 0.3 Neutrophils % 68.5 Lymphocytes % 21.4 Monocytes % 8.2 Eosinophils % 1.3 Basophils % 0.3 Nucleated RBC % 0.0 Absolute Neutrophils 6.33 Absolute Lymphocytes 1.98 Absolute Monocytes 0.76 Absolute Eosinophils 0.12 Absolute Basophils 0.03 PT INR APTT D-Dimer 726 H Sodium 138 Potassium 4.7 Chloride 102 Carbon Dioxide 25.7 Anion Gap 10.3 BUN 17 Creatinine 1.1 H Estimated GFR/1.73 m2 47.32 Glucose 215 H Calcium 9.3 Magnesium 1.7 L Total Bilirubin 0.7 AST 35 ALT 29 Alkaline Phosphatase 114 Troponin I 90 H* Total Protein 7.4 Albumin 3.3 L COVID-19 Source SARS-CoV-2 (PCR) 08/25/21 08/25/21 08/25/21 17:25 18:02 19:34 WBC RBC Hgb Hct MCV MCH MCHC RDW Plt Count MPV Immature Gran % Neutrophils % Lymphocytes % Monocytes % Eosinophils % Basophils % Nucleated RBC % Absolute Neutrophils Absolute Lymphocytes Absolute Monocytes Absolute Eosinophils Absolute Basophils PT 10.3 INR 1.0 APTT 19.2 L D-Dimer Sodium Potassium Chloride Carbon Dioxide Anion Gap BUN Creatinine Estimated GFR/1.73 m2 Glucose Calcium Magnesium Total Bilirubin AST ALT Alkaline Phosphatase Troponin I 105 H* Total Protein Albumin COVID-19 Source Nasal/Nares SARS-CoV-2 (PCR) Negative 08/25/21 21:20 WBC RBC Hgb Hct MCV MCH MCHC RDW Plt Count MPV Immature Gran % Neutrophils % Lymphocytes % Monocytes % Eosinophils % Basophils % Nucleated RBC % Absolute Neutrophils Absolute Lymphocytes Absolute Monocytes Absolute Eosinophils Absolute Basophils PT INR APTT D-Dimer Sodium Potassium Chloride Carbon Dioxide Anion Gap BUN Creatinine Estimated GFR/1.73 m2 Glucose Calcium Magnesium Total Bilirubin AST ALT Alkaline Phosphatase Troponin I Total Protein Albumin COVID-19 Source Nasal/Nares SARS-CoV-2 (PCR) Last Vital Signs Temp 36.3 C L 08/25/21 18:49 Pulse 98 H 08/25/21 19:33 Resp 13 08/25/21 19:40 BP 139/71 08/25/21 19:33 Pulse Ox 96 08/25/21 19:40
[2021-08-25 22:20] LABS: TSH (W/Ref FT4) 3.32 uIU/mL (0.36-3.74)
[2021-08-25 22:20] LABS: COVID-19 PCR Negative (Negative)
[2021-08-25 23:11] LABS: Troponin I 137 ng/L (<or=60)
[2021-08-25] MEDS: Donepezil 5 MG TAB 10 MG PO (23:25)
[2021-08-25] MEDS: Aspirin E.C. 81 MG TABEC PO (23:25)
[2021-08-26 00:16] LABS: Bilirubin Negative (Negative); Blood Negative (Negative); Clarity Sl Cloudy (Clear); Glucose Negative (Negative); Ketones Negative (Negative); Leukocyte Esterase Negative (Negative); Nitrite Negative (Negative); Specific Gravity >= 1.030 (1.005-1.025); Urobilinogen 0.2 EU/dL (Up TO 0.2); pH 5.5 (5-8)
[2021-08-26] MEDS: Nortriptyline 10 MG CAP PO (00:27)
[2021-08-26 02:34] VITALS: BP 142/79; PULSE 114; RESP 16; TEMP 36.7; O2SAT 100
--- NOTE | 2021-08-26 02:40 | NUR.NOTE ---
HR up to 130's while ambulating to toilet. Sinus Tachycardia; 108-116 once returned to bed. NO c/o chest pain at this time.
[2021-08-26 03:25] LABS: Troponin I 120 ng/L (<or=60)
[2021-08-26 03:26] VITALS: PULSE 99
[2021-08-26 03:26] LABS: PTT Activated 41.9 sec (21.0-27.5)
[2021-08-26 06:48] LABS: Abs Immature Grans 0.02 10^3/uL (0.0-0.06); Absolute Basophil Count 0.04 10^3/uL (0.0-0.2); Absolute Eosinophil Count 0.14 10^3/uL (0.0-0.7); Absolute Lymphocyte Count 1.83 10^3/uL (1.2-3.4); Absolute Monocyte Count 0.71 10^3/uL (0.1-0.8); Absolute Neutrophil Count 4.58 10^3/uL (1.2-6.7); Basophils % 0.5; Eosinophils % 1.9; HCT 40.1 % (36.0-46.0); HGB 13.1 g/dL (11.2-15.7); Immature Grans % 0.3; MCH 29.4 pg (27.0-33.0); MCHC 32.7 % (32.0-36.0); MCV 90 fL (80-95); MPV 10.9 fL (8.0-11.0); Monocytes % 9.7; Neutrophils % 62.6; Platelet Count 177 10^3/uL (130-400); RBC 4.46 10^6/uL (3.93-5.22); RDW 12.8 % (11.7-14.6); RDW-SD 41.8 fL; WBC 7.32 10^3/uL (4.4-10.8)
[2021-08-26 07:00] VITALS: PULSE 94
[2021-08-26 07:09] LABS: ALT 22 U/L (14-59); AST 20 U/L (15-37); Albumin 3.2 g/dL (3.4-5.0); Alkaline Phosphatase 106 U/L (46-116); Anion Gap 7.7 mmol/L (3-11); BUN 18 mg/dL (7-18); Bilirubin, Total 0.8 mg/dL (0.2-1.0); CO2 30.3 mmol/L (21.0-32.0); CREATININE 1.1 mg/dL (0.55-1.02); Chloride 103 mmol/L (98-107); Estimated GFR 47.32 (mL/min/1.73m2); Glucose 230 mg/dL (74-106); Potassium 4.3 mmol/L (3.5-5.1); Sodium 141 mmol/L (136-145); Total Protein 6.7 g/dL (6.4-8.2)
[2021-08-26 07:13] LABS: Troponin I 121 ng/L (<or=60)
[2021-08-26] MEDS: Memantine 5 MG TAB 10 MG PO (07:42)
[2021-08-26] MEDS: Pantoprazole 40 MG TABCR PO (07:42)
[2021-08-26] MEDS: Rosuvastatin 5 MG TAB PO (07:42)
[2021-08-26] MEDS: Isosorbide Mononitrate 30 MG TABCR PO (07:42)
[2021-08-26] MEDS: Clopidogrel 75 MG TAB PO (07:42)
[2021-08-26] MEDS: Pregabalin 50 MG CAP PO (07:42)
[2021-08-26] MEDS: Insulin Aspart 300 UNITS/3 ML PEN SC ×2 (07:42→12:27)
[2021-08-26] MEDS: Metoprolol 12.5 MG TAB 25 MG PO (07:42)
[2021-08-26 07:51] VITALS: BP 149/81; PULSE 105; RESP 20; TEMP 36
[2021-08-26] MEDS: Budesonide/Formoterol 160/4.5 6 GM 60 PUFF INH IH (08:16)
--- NOTE | 2021-08-26 09:02 | INITIAL_ITS ---
- If Service Date Differs Date of service: 08/26/21 Time of Service: 09:02 Care Management Initial Assess REASON FOR HOSPITALIZATION:: NSTEMI, unstable angina PAST MEDICAL HISTORY/PAST SURGICAL HISTORY:: All Active Problems (Updated 08/26/21 @ 06:46 by Kan Garcia). NSTEMI (non-ST elevated myocardial infarction) (Acute). Chest pain (Acute). Elevated troponin (Acute). SARS-CoV-2 positive (Acute ~08/07/21). Asthma (Chronic). Uncontrolled diabetes mellitus (Acute). Non-proliferative diabetic retinopathy, mild, right eye (Acute). Obesity (BMI 30.0-34.9) (Acute). Heart murmur (Acute). Diabetes mellitus with neuropathy (Acute). goal 7.5; insulin begun 07/2016. Alzheimer's dementia without behavioral disturbance (Acute). 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 DNI (do not intubate) (Acute). DNR (do not resuscitate) (Acute). POLST (Physician Orders for Life-Sustaining Treatment) (Acute). Cough in adult (Chronic). Goals of care, counseling/discussion (Acute). Palliative care patient (Acute). Mediastinal lymphadenopathy (Acute). Cataplexy (Acute). Periodic limb movement sleep disorder (Acute 06/29/20). Fall (on) (from) other stairs and steps, initial encounter (Acute). Memory impairment (Acute). Diabetic neuropathy (Chronic). Tinnitus (Chronic). Syncope (Acute 04/28/14). Gastroesophageal reflux disease (Acute 02/19/11). EGD 12/13/16 neg for Ridley's, neg for H. Pylori. Status post total knee replacement, right (Acute). DOS: 06/26/2018. Dr. Turner. Esophagitis (Acute 12/13/16). Dehydration (Acute). Transient global amnesia (Acute). HEAD (dyspnea on exertion) (Acute). Chest pain at rest (Acute). Status post total knee replacement (Acute). ASCVD (arteriosclerotic cardiovascular disease) (Acute). Cardiloogy Stefan Munguia. Carpal tunnel syndrome on right (Acute). s/p ECTR. DOS: 03/04/20. Derangement of left acromioclavicular joint (Acute). Obesity (Chronic). Tendonitis of left rotator cuff (Acute). Colitis (Acute). resolved. Primary osteoarthritis of right knee (Chronic). Tinnitus of both ears (Acute 09/26/14). Skin lesion of left ear (Acute 10/31/15). Sensorineural hearing loss, bilateral (Acute 09/13/13). Sciatica (Acute 02/19/11). Primary osteoarthritis involving multiple joints (Acute 10/30/14). Diverticulitis of colon (Acute 02/19/11). RECURRENT. Diabetic neuropathy (Chronic 01/24/14). peripheral neuropathy. Medical History . JEMIMA (acute kidney injury). Alzheimer's dementia. Angina at rest (02/19/11). very rare, follow with Dr. Fiore. Atherosclerosis of circle coronary artery of circle heart with angina pectoris. UNSTABLE ANGINA, CATH 01/2011 JOHN to OM1 EF 65%. MPI 06/10/11 no ischemia, sm septal defect, nl EF. CAD (coronary artery disease). Chest pain (04/28/14). Chronic kidney disease, stage III (moderate). Edema (09/05/15). nl EF, proably venous. Essential hypertension (07/27/12). goal 140/90. Fibromyalgia (12/18/14). Dx 12/[address] Kraft Rheum [facility] [place]. 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 (12/13/16 report of operation). NC. GERD (gastroesophageal reflux disease). H/O diverticulitis of colon. Hearing loss of both ears. History of rheumatic fever. Hyperlipidemia (02/19/11). LDL baseline 127. intol ator, simv 20mg. Hypertension. Loss of equilibrium. Mild obstructive sleep apnea (06/29/20). Old myocardial infarction. 2000. RANDEE (obstructive sleep apnea). Osteopenia (02/19/11). T -1.6. Osteoporosis. Pneumonia. Positive cardiac stress test (06/30/17). has sched cardiac cath 07/[address] Arnett. Pulmonary edema. Rectal bleed. Sciatica. Syncope (05/15/14). neg w/u. Type 2 diabetes mellitus. Urinary incontinence (06/05/14). Sacral stimulator: Dr Stokes in [facility]. Surgical History . Colonoscopy - MAC (12/13/16). Coronary Stent (07/12/17). [facility] [place]. Kenyon Arnett MD report date . procedures: coronary angiography,left heart catherization,coronary stent insertion. x2. EGD - MAC (12/13/16). Postsurgical percutaneous transluminal coronary angioplasty status. 2008. S/P right knee arthroscopy. Dr. Galloway. >10 years. Status post implantation of urinary electronic stimulator device. Tonsillectomy PREVIOUS FUNCTIONAL STATUS/SOCIAL/FAMILY SUPPORTS:: Sonia resides in [facility] with her friend Maureen. Patient has Alzheimers/dementia, DPOA/Caregiver is Maureen Hernandez ([phone]). CURRENT FUNCTIONAL STATUS:: Sonia was sitting up in her chair when CM met with her. She is alert and talkative. She is feeling much better and hopes that she will be able to discharge home later today. Sonia shares that she lives with her friend Maureen who is very supportive. ADVANCE DIRECTIVES:: On File, HCA is Maureen Hernandez. COLST form on File Has patient been provided with info about the portal/API?: Yes Did the patient sign up for the portal?: Yes (Prior to admission) CODE STATUS:: DNR/DNI INSURANCE COVERAGE / FINANCIAL ISSUES:: [facility] [employer]. Medicare CURRENT HOME/COMMUNITY SERVICES/EQUIPMENT:: [facility] PRIMARY CARE PHYSICIAN:: Savanna Guillen PATIENT/FAMILY EDUCATION NEEDS:: Review discharge instructions, limitations and plan to follow up with community providers. ask me three. TRANSPORTATION:: Via private car with friend Loulou at time of discharge. PLAN:: Anticipate, Sonia will discharge home when medically cleared by provider with new [facility] services if indicated at time of discharge. Sonia will follow up with community providers and discharge plan of care as prescribed. Sonia will transport via friend Amureen.
[2021-08-26 10:03] LABS: PTT Activated 112.6 sec (21.0-27.5)
[2021-08-26 11:38] VITALS: BP 114/66; PULSE 75; RESP 20; TEMP 36.6; O2SAT 97
--- NOTE | 2021-08-26 11:38 | DM INPTCON_ITS ---
Date of service: 08/26/21 Time of Service: 11:38 Diabetes Inpatient Consult Reason for Visit: dm DESCRIPTION/ASSESSMENT: Sonia was admitted with NSTEMI with long standing hx of uncontrolled Dm2, CAD, obesity, dementia. 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 DM meds at home: 50 units lantus BID, does not tolerate metformin. Has Libre2 continuous glucose monitor but no meal time insulin to correct for elevated blood sugars. Most recent A1C: 10.3%, most recent Ambulatory Glucose Profile indicates very poor glycemic management. Diet includes high amount processed foods such as pepsi, fries, waffles and cereal. WIll need meal time insulin for better coverage. INTERVENTION: Continue diabetic meal plan Recommend discharge with meal time insulin- 5 units Novolg at meals Recommend swithing lantus to Tresiba or Toujeo for better coverage Consider SGTL2i such as Jardiance and/or GLP1ra such as Ozempic/Trulicity PLAN: will support/educate during hospitalization Time Spent in Nutritional Counseling and Treatment: 0
--- NOTE | 2021-08-26 14:03 | W.PM.DS.N ---
Date of service: 08/26/21 Time of Service: 14:03 DS: Diagnosis Discharge Diagnosis (1) NSTEMI (non-ST elevated myocardial infarction): Status: Acute (2) Atherosclerosis of [place] coronary artery of [place] heart with angina pectoris: (3) Uncontrolled diabetes mellitus: Status: Chronic (4) Obesity (BMI 30.0-34.9): Status: Chronic (5) Alzheimer's dementia without behavioral disturbance: Status: Chronic Discharge Plan Disposition Patient Disposition: HOME Condition: Improving Discharge Details Reason For Visit: NSTEMI,Unstable Angina Admit Date/Time: 08/25/21 21:29 Admit Provider: Kan Garcia Attending Provider: Kan Garcia Primary Care Provider: Savanna Guillen [facility] Course Hospital Course: This is an 85-year-old female patient presented to the ED after having nonexertional chest discomfort which responded to nitroglycerin sublingually at home.? He had recurrent chest discomfort and reported to the ED for evaluation.? He does not have a slight elevation in her troponin and was initiated on heparin infusion with loading dose of Plavix with her usual other medical therapy continued with no recurrent chest pain in the ED.? In the ED when she first reported she did not respond to nitroglycerin sublingual.? He has a history of dementia which is mild on treatment and lives with a partner who is there at all times.? She also has a history of CAD status post stenting in the recent past years and further evaluation this last year which was unrevealing with no change in therapy.? She is on daily Imdur in the morning.? She also has GERD and has nonexertional chest discomfort could have been esophageal spasm but her troponins were slightly elevated prompting this admission.? He recently had COVID diagnosed August 08 and was on Paxlovid for 5-day course which has been completed.? The patient has had no recurrent chest discomfort during her hospital stay and today is on heparin infusion with trending troponins.? She is a DNR/DNI.? She does have uncontrolled diabetes long-term and advancing dementia. Further review of systems positive for patient is obese and fairly sedentary, she has had no increase in edema recently and no exertional symptoms reported though she is sedentary. Echocardiogram on 02/18/21 showed a norm left ventricular chamber size with EF of 55%. She was placed on Plavix and a heparin drip. Continued on an aspirin. The following day she had no symptoms; CP or palpitations. She will continue plavix 75mg daily, Aspirin 81mg daily. A cardiology follow up will be arranged. Follow up in 1-2 weeks. Home Meds and New Rx's Prescriptions: New clopidogrel 75 mg Tablet 75 mg PO DAILY Qty: 30 0RF Continued nitroglycerin [Nitrostat] 0.4 mg tablet, sublingual 0.4 mg Sublingual Q5 MIN PRN X3 PRN (Reason: chest pain) Qty: 50 6RF Rx Instructions: Use as directed turmeric 400 mg capsule 400 mg PO DAILY Rx Instructions: turmeric with curcumin - recommended by Neuro for memory concerns. 06/18/20 EO donepezil 10 mg tablet 10 mg PO QHS Qty: 90 3RF albuterol sulfate [ProAir HFA] 90 mcg/actuation HFA aerosol inhaler 1 - 2 puff Inhalation Q4H PRN Qty: 1 12RF Rx Instructions: DISPENSE WITH SPACER DX: WHEEZE pregabalin 50 mg capsule 50 mg PO BID Qty: 60 2RF pantoprazole 40 mg tablet,delayed release (DR/EC) 40 mg PO DAILY budesonide-formoterol [Symbicort] 160-4.5 mcg/actuation HFA aerosol inhaler 2 puff inhalation BID Qty: 10.2 6RF Mucinex 1,200 mg tablet extended release 12hr 1,200 mg PO Q12H PRN (Reason: cold symptoms) Qty: 30 1RF Rx Instructions: Cough isosorbide mononitrate 30 mg tablet extended release 24 hr 30 mg PO DAILY Qty: 90 3RF rosuvastatin [Crestor] 5 mg tablet 5 mg PO DAILY Qty: 90 3RF Rx Instructions: \ 02/19/20 5 mg daily cgc nortriptyline 10 mg capsule 10 mg PO HS Qty: 90 3RF Rx Instructions: for chronic pain and diabetic neuropathy insulin glargine [Lantus Solostar U-100 Insulin] 100 unit/mL (3 mL) insulin pen 50 unit Sub-Q BID Qty: 30 12RF albuterol sulfate 2.5 mg /3 mL (0.083 %) solution for nebulization 2.5 mg inhalation Q4H PRN (Reason: shortness of breath or wheezing) Qty: 180 3RF ropinirole 1 mg tablet 1 mg PO QPM Qty: 90 3RF Rx Instructions: TAKE 1 TABLET BY MOUTH 2 HOURS PRIOR TO BEDTIME memantine 10 mg tablet 10 mg PO BID Qty: 180 3RF clindamycin HCl 150 mg capsule 600 mg PO ONCE Qty: 4 0RF metoprolol tartrate 25 mg tablet 25 mg PO BID Qty: 180 3RF aspirin 81 mg tablet,delayed release (DR/EC) 81 mg PO HS Qty: 90 3RF Discontinued Paxlovid (EUA) 150-100 mg tablet See Rx Instructions PO PER PKG DIR Qty: 20 0RF Rx Instructions: PO PER PKG DIR No Action (DME) FreeStyle Saurabh 14 Day Sensor Kit See Rx Instructions .ROUTE .MEDSUPPLY Qty: 1 0RF Rx Instructions: As directed (DME) Poise Pads Pad See Rx Instructions .ROUTE .MEDSUPPLY Qty: 312 12RF Rx Instructions: As directed (DME) diaper,brief,adult,disposable Misc See Rx Instructions .ROUTE .MEDSUPPLY Qty: 126 12RF Rx Instructions: Size LARGE Change As directed (DME) pen needle, diabetic [BD Ultra-Fine Marilyn Pen Needle] 32 gauge x 5/32 needle 1 unit Miscellaneous HS Qty: 200 3RF Rx Instructions: TO USE WITH LANTUS SOLOSTART PEN (DME) nebulizer and compressor Device See Rx Instructions .Route Qty: 1 0RF Rx Instructions: As directed (DME) FreeStyle Saurabh 14 Day [place] Misc See Rx Instructions .ROUTE .MEDSUPPLY Qty: 2 12RF Rx Instructions: As directed (DME) nebulizer accessories Kit See Rx Instructions .Route Qty: 2 6RF Rx Instructions: As directed Discharge Instructions Instructions: Angina (DC) Referrals: Cecily Valentin MD [ [facility] STAFF PHYSICIAN] - (S/P NSTEMI.) Activity:: Activity as Tolerated Equipment/Supplies:: No Equipment Needed Diet:: Resume home diabetic diet Discharge Orders Discharge Orders: Discharge Order (Routine); Ordered 08/26/21 Ordered By: Skyler Bansal DS: Summary Time Spent with Patient providing and/or coordinating discharge services: Greater than 30 minutes Status at Discharge Functional status at discharge: independent ambulation Overall status at discharge: patient is back to baseline Mental Status: mental status grossly normal Speech and Movement: speech clear Mood: congruent mood Affect: normal affect Exam Psych Mental Status: mental status grossly normal Speech and Movement: speech clear Mood: congruent mood Affect: normal affect DS: Data Vitals/I&O Vitals and I&O: Vital Signs Temperature 36.6 C 08/26/21 11:38 Temperature Source Tympanic 08/26/21 11:38 Pulse 75 08/26/21 11:38 Pulse Rhythm Regular 08/26/21 11:40 Pulse 100 H 08/25/21 21:40 Respiratory Rate 20 08/26/21 11:38 Respiratory Effort Non-Labored 08/26/21 11:40 Respiratory Depth Normal 08/26/21 11:40 Respiratory Pattern Normal 08/26/21 11:40 Blood Pressure 114/66 08/26/21 11:38 Blood Pressure Mean 86 08/25/21 19:33 Blood Pressure Position Sitting 08/25/21 17:04 Pulse Oximetry 97 08/26/21 11:38 Oxygen Delivery Method Room Air 08/26/21 11:38 Oxygen Flow Rate 0 08/26/21 11:38 Pain Level 0 08/26/21 11:38 Intake & Output 08/25/21 08/26/21 08/26/21 23:59 11:59 23:59 Intake Total 620 / 620 735.033 / 735.033 Output Total 200 / 200 750 / 750 Balance 420 / 420 -14.967 / -14.967 Weight 97.5 kg Intake: IV 260 / 260 145.033 / 145.033 Oral 360 / 360 590 / 590 Output: Urine 200 / 200 750 / 750 Other: Urine Color Light Emilie Yellow Urine Appearance Clear Clear Urine Odor None Normal Comment Urine specimen collected if needed. Voiding Methods Toilet Toilet Data Completed and Pending Labs on day of discharge: Labs from last 24 hours 08/26/21 08/26/21 08/26/21 17:20 09:15 06:25 WBC 7.32 RBC 4.46 Hgb 13.1 Hct 40.1 MCV 90 MCH 29.4 MCHC 32.7 RDW 12.8 Plt Count 177 MPV 10.9 Immature Gran % 0.3 Neutrophils % 62.6 Lymphocytes % 25.0 Monocytes % 9.7 Eosinophils % 1.9 Basophils % 0.5 Nucleated RBC % 0.0 Absolute Neutrophils 4.58 Absolute Lymphocytes 1.83 Absolute Monocytes 0.71 Absolute Eosinophils 0.14 Absolute Basophils 0.04 PT INR APTT Pending 112.6 H* D-Dimer Sodium Potassium Chloride Carbon Dioxide Anion Gap BUN Creatinine Estimated GFR/1.73 m2 Glucose Calcium Magnesium Total Bilirubin AST ALT Alkaline Phosphatase Troponin I Total Protein Albumin TSH Urine Color Urine Clarity Urine pH Ur Specific [place] Urine Protein Urine Ketones Urine Blood Urine Nitrite Urine Bilirubin Urine Urobilinogen Ur Leukocyte Esterase Urine Glucose COVID-19 Source SARS-CoV-2 (PCR) 08/26/21 08/26/21 08/26/21 06:25 06:25 02:55 WBC RBC Hgb Hct MCV MCH MCHC RDW Plt Count MPV Immature Gran % Neutrophils % Lymphocytes % Monocytes % Eosinophils % Basophils % Nucleated RBC % Absolute Neutrophils Absolute Lymphocytes Absolute Monocytes Absolute Eosinophils Absolute Basophils PT INR APTT 41.9 H D-Dimer Sodium 141 Potassium 4.3 Chloride 103 Carbon Dioxide 30.3 Anion Gap 7.7 BUN 18 Creatinine 1.1 H Estimated GFR/1.73 m2 47.32 Glucose 230 H Calcium 9.0 Magnesium Total Bilirubin 0.8 AST 20 ALT 22 Alkaline Phosphatase 106 Troponin I 121 H* Total Protein 6.7 Albumin 3.2 L TSH Urine Color Urine Clarity Urine pH Ur Specific [place] Urine Protein Urine Ketones Urine Blood Urine Nitrite Urine Bilirubin Urine Urobilinogen Ur Leukocyte Esterase Urine Glucose COVID-19 Source SARS-CoV-2 (PCR) 08/26/21 08/26/21 08/25/21 00:32 00:00 22:47 WBC RBC Hgb Hct MCV MCH MCHC RDW Plt Count MPV Immature Gran % Neutrophils % Lymphocytes % Monocytes % Eosinophils % Basophils % Nucleated RBC % Absolute Neutrophils Absolute Lymphocytes Absolute Monocytes Absolute Eosinophils Absolute Basophils PT INR APTT D-Dimer Sodium Potassium Chloride Carbon Dioxide Anion Gap BUN Creatinine Estimated GFR/1.73 m2 Glucose Calcium Magnesium Total Bilirubin AST ALT Alkaline Phosphatase Troponin I 120 H* 137 H* Total Protein Albumin TSH Urine Color Yellow Urine Clarity Sl Cloudy Urine pH 5.5 Ur Specific [place] >= 1.030 H Urine Protein Negative Urine Ketones Negative Urine Blood Negative Urine Nitrite Negative Urine Bilirubin Negative Urine Urobilinogen 0.2 Ur Leukocyte Esterase Negative Urine Glucose Negative COVID-19 Source SARS-CoV-2 (PCR) 08/25/21 08/25/21 08/25/21 21:20 19:34 19:34 WBC RBC Hgb Hct MCV MCH MCHC RDW Plt Count MPV Immature Gran % Neutrophils % Lymphocytes % Monocytes % Eosinophils % Basophils % Nucleated RBC % Absolute Neutrophils Absolute Lymphocytes Absolute Monocytes Absolute Eosinophils Absolute Basophils PT INR APTT D-Dimer Sodium Potassium Chloride Carbon Dioxide Anion Gap BUN Creatinine Estimated GFR/1.73 m2 Glucose Calcium Magnesium Total Bilirubin AST ALT Alkaline Phosphatase Troponin I 105 H* Total Protein Albumin TSH 3.32 Urine Color Urine Clarity Urine pH Ur Specific [place] Urine Protein Urine Ketones Urine Blood Urine Nitrite Urine Bilirubin Urine Urobilinogen Ur Leukocyte Esterase Urine Glucose COVID-19 Source Nasal/Nares SARS-CoV-2 (PCR) Negative 08/25/21 08/25/21 08/25/21 18:02 17:25 17:25 WBC RBC Hgb Hct MCV MCH MCHC RDW Plt Count MPV Immature Gran % Neutrophils % Lymphocytes % Monocytes % Eosinophils % Basophils % Nucleated RBC % Absolute Neutrophils Absolute Lymphocytes Absolute Monocytes Absolute Eosinophils Absolute Basophils PT 10.3 INR 1.0 APTT 19.2 L D-Dimer 726 H Sodium Potassium Chloride Carbon Dioxide Anion Gap BUN Creatinine Estimated GFR/1.73 m2 Glucose Calcium Magnesium Total Bilirubin AST ALT Alkaline Phosphatase Troponin I Total Protein Albumin TSH Urine Color Urine Clarity Urine pH Ur Specific [place] Urine Protein Urine Ketones Urine Blood Urine Nitrite Urine Bilirubin Urine Urobilinogen Ur Leukocyte Esterase Urine Glucose COVID-19 Source Nasal/Nares SARS-CoV-2 (PCR) Negative 08/25/21 08/25/21 17:25 17:25 WBC 9.25 RBC 4.64 Hgb 13.9 Hct 41.1 MCV 89 MCH 30.0 MCHC 33.8 RDW 12.9 Plt Count 207 MPV 11.0 Immature Gran % 0.3 Neutrophils % 68.5 Lymphocytes % 21.4 Monocytes % 8.2 Eosinophils % 1.3 Basophils % 0.3 Nucleated RBC % 0.0 Absolute Neutrophils 6.33 Absolute Lymphocytes 1.98 Absolute Monocytes 0.76 Absolute Eosinophils 0.12 Absolute Basophils 0.03 PT INR APTT D-Dimer Sodium 138 Potassium 4.7 Chloride 102 Carbon Dioxide 25.7 Anion Gap 10.3 BUN 17 Creatinine 1.1 H Estimated GFR/1.73 m2 47.32 Glucose 215 H Calcium 9.3 Magnesium 1.7 L Total Bilirubin 0.7 AST 35 ALT 29 Alkaline Phosphatase 114 Troponin I 90 H* Total Protein 7.4 Albumin 3.3 L TSH Urine Color Urine Clarity Urine pH Ur Specific [place] Urine Protein Urine Ketones Urine Blood Urine Nitrite Urine Bilirubin Urine Urobilinogen Ur Leukocyte Esterase Urine Glucose COVID-19 Source SARS-CoV-2 (PCR) PFSH All Active Problems NSTEMI (non-ST elevated myocardial infarction) (Acute) Chest pain (Acute) Elevated troponin (Acute) SARS-CoV-2 positive (Acute ~08/07/21) Asthma (Chronic) Uncontrolled diabetes mellitus (Chronic) Non-proliferative diabetic retinopathy, mild, right eye (Acute) Obesity (BMI 30.0-34.9) (Chronic) Heart murmur (Acute) Diabetes mellitus with neuropathy (Acute) goal 7.5; insulin begun 07/2016 Alzheimer's dementia without behavioral disturbance (Chronic) 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, 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; 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 Pylori Status post total knee replacement, right (Acute) DOS: 06/26/2018 Dr. Turner Esophagitis (Acute 12/13/16) Dehydration (Acute) Transient global amnesia (Acute) HEAD (dyspnea on exertion) (Acute) Chest pain at rest (Acute) Status post total knee replacement (Acute) ASCVD (arteriosclerotic cardiovascular disease) (Acute) Cardiloogy Stefan Munguia Carpal tunnel syndrome on right (Acute) s/p ECTR DOS: 03/04/20 Derangement of left acromioclavicular joint (Acute) Obesity (Chronic) Tendonitis of left rotator cuff (Acute) Colitis (Acute) resolved. Primary osteoarthritis of right knee (Chronic) Tinnitus of both ears (Acute 09/26/14) Skin lesion of left ear (Acute 10/31/15) Sensorineural hearing loss, bilateral (Acute 09/13/13) Sciatica (Acute 02/19/11) Primary osteoarthritis involving multiple joints (Acute 10/30/14) Diverticulitis of colon (Acute 02/19/11) RECURRENT Diabetic neuropathy (Chronic 01/24/14) peripheral neuropathy Medical History JEMIMA (acute kidney injury) Alzheimer's dementia Angina at rest (02/19/11) very rare, follow with Dr. Fiore Atherosclerosis of [place] coronary artery of [place] heart with angina pectoris UNSTABLE ANGINA, CATH 01/2011 JOHN to OM1 EF 65%. MPI 06/10/11 no ischemia, sm septal defect, nl EF CAD (coronary artery disease) Chest pain (04/28/14) Chronic kidney disease, stage III (moderate) Edema (09/05/15) nl EF, proably venous Essential hypertension (07/27/12) goal 140/90 Fibromyalgia (12/18/14) Dx 12/[address] Kraft Rheum [facility] [place] Gastritis, chronic (12/13/16) with gastric polyps. (12/13/16 report of operation). [place] GERD (gastroesophageal reflux disease) H/O diverticulitis of colon Hearing loss of both ears History of rheumatic fever Hyperlipidemia (02/19/11) LDL baseline 127 intol ator, simv 20mg Hypertension Loss of equilibrium Mild obstructive sleep apnea (06/29/20) Old myocardial infarction 1999 RANDEE (obstructive sleep apnea) Osteopenia (02/19/11) T -1.6 Osteoporosis Pneumonia Positive cardiac stress test (06/30/17) has sched cardiac cath 07/[address] Arnett. Pulmonary edema Rectal bleed Sciatica Syncope (05/15/14) neg w/u Type 2 diabetes mellitus Urinary incontinence (06/05/14) Sacral stimulator: Dr Stokes in [place] Surgical History Colonoscopy - MAC (12/13/16) Coronary Stent (07/12/17) [facility] [place]. Kenyno Arnett MD report date . procedures: coronary angiography,left heart catherization,coronary stent insertion. x2 EGD - MAC (12/13/16) Postsurgical percutaneous transluminal coronary angioplasty status 2008 S/P right knee arthroscopy Dr. Galloway >10 years Status post implantation of urinary electronic stimulator device Tonsillectomy Family History Father , [place] Heart disease Hypertension Sister , age 76 Stomach cancer Colon cancer Mother , at age 102 Hypertension Heart disease Paternal Grandfather Stroke Niece No problems noted. Social History Smoking/Tobacco Use Status: Former Tobacco Use Quit Date: 02/15/68 Tobacco: How many years used: 18 Second Hand Exposure: No Smoking risk assessment performed?: Yes Alcohol Intake: current Alcohol Intake frequency: holidays/special occasions only Alcohol type: wine Drug use: Never Substance use type: does not use Adopted: No Caregiver/Support person: Yes Foster care: No Household members: friend(s) Housing: house Number of Children: 0 Communication Needs: Hard of Hearing and Corrective Lenses Education Level: high school Do you need help understanding health information?: Always current occupation: retired Pets and animals: Yes Pets and animals: cat(s) Sexually active: No Do you think of yourself as: straight/heterosexual Current gender identity: female What is your relationship status?: living with partner How often do you get together with friends or relatives?: once per week Do you belong to any clubs or organized social groups?: yes Panel score (0-1 are the most socially isolated patients): 2 What type of physical activity do you participate in: walking and sedentary lifestyle Duration: 15-30 minutes/day Frequency: 1-2 times per week Shannan/Congregation: [employer] Special shannan needs: No Seatbelt use: always Drive intox or ride w/intox sprinkler driver: No Working smoke detector in home: Yes Fire extinguisher in home: Yes Carbon monox detector in home: Yes Do you feel safe at home: Yes Do you feel safe in your relationship?: Yes Additional Social history: Sonia has lived with her partner, Jessenia, for more than 60 years. They met at the [facility] in [place], [place]. Jessenia is from [place]. They retired here, not sure when a long time ago. 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 Pleasant. Worked on paperwork at 03/24/21 visit: Jessenia is health care agent; Sonia chose DNR/DNI but with limited interventions included IVF and antibiotics.
--- NOTE | 2021-08-26 15:25 | PDOC.CMDIS ---
- If Service Date Differs Date of service: 08/26/21 Time of Service: 15:25 LACE Index Scoring Tool - Questions: Length of Stay (in days): 1 Acuity (Admit via E.D.?): Yes Comorbidities: Previous M.I., Diabetes w/o Complication, Liver or Renal Disease E.D. Visits: 2 - Answers: Total Score: 11 Risk of Readmission: High Risk Care Management Discharge Reason for Hospitalization: NSTEMI, unstable angina Discharge Plan: Sonia is discharged home via private vehicle with family with a new RX for Clopidogrel transmitted to [facility]. Sonia will follow up with her PCP on 09/03/21 as scheduled and Cardiology in 1-[address] Valentin's office will call patient directly to schedule. No new Home Health services are indicated at the time of discharge. Patient/Family Education Needs: Review discharge instructions, limitations, medications and plan to follow up with her PCP and Cardiology. ask me three.
== END 2021-08-26 16:12 | disposition home or self-care (01) | DRG 282 ==
LOC: ER 21:14 → MS 22:53
PROVIDERS: Physician Assistant; Admitting Provider Family Medicine; Emergency Provider Emergency Medicine; PCP Nurse Practitioner; Visit Provider Family Medicine
DX: I21.4 Non-ST elevation (NSTEMI) myocardial infarction (principal); E78.5 Hyperlipidemia, unspecified; I12.9 Hypertensive chronic kidney disease with stage 1 through stage 4 chronic kidney disease, or unspecified chronic kidney disease; E11.22 Type 2 diabetes mellitus with diabetic chronic kidney disease; E66.9 Obesity, unspecified; Z68.35 Body mass index [BMI] 35.0-35.9, adult; E11.42 Type 2 diabetes mellitus with diabetic polyneuropathy; N18.9 Chronic kidney disease, unspecified; J45.909 Unspecified asthma, uncomplicated; E11.65 Type 2 diabetes mellitus with hyperglycemia; G30.9 Alzheimer's disease, unspecified; F02.80 Dementia in other diseases classified elsewhere, unspecified severity, without behavioral disturbance, psychotic disturbance, mood disturbance, and anxiety; F01.50 Vascular dementia, unspecified severity, without behavioral disturbance, psychotic disturbance, mood disturbance, and anxiety; R59.0 Localized enlarged lymph nodes; G47.61 Periodic limb movement disorder; Z96.651 Presence of right artificial knee joint; K21.9 Gastro-esophageal reflux disease without esophagitis; M15.9 Polyosteoarthritis, unspecified; I25.119 Atherosclerotic heart disease of native coronary artery with unspecified angina pectoris; M79.7 Fibromyalgia; Z66 Do not resuscitate; G47.33 Obstructive sleep apnea (adult) (pediatric); Z95.5 Presence of coronary angioplasty implant and graft; Z79.82 Long term (current) use of aspirin; Z86.16 Personal history of COVID-19; Z79.4 Long term (current) use of insulin
CPT/HCPCS: 36415; 80053; 87635; 93005; 94640; 96361; 96365; 96375; 99285; 71045; 81003; 83735; 84443; 84484; 85025; 85379; 85610; 85730; 93010; 94664; 99223; 99239; J2270; J3475; J3490

== ENCOUNTER 2021-08-27 11:13 | Inpatient (IN) | payer MEDICARE, SELFPAY ==
[2021-08-27] VITALS (27 sets, daily range): BP systolic 108–156; BP diastolic 27–66; PULSE 72–106; RESP 14–26; TEMP 36.3–36.8; O2SAT 95–99
--- NOTE | 2021-08-27 11:15 | RT.EKG_ITS ---
APPROVED REPORT Exam: Resting ECG Reason for Exam: chest pain Patient Location: E HR:100 bpm ECG Measurements Heart Rate 100 AXIS NM 157 P 59 QRSd 81 QRS -22 QT 358 T 85 QTc 463 Conclusion Pacemaker spikes or artifacts...timing non-diagnostic Sinus tachycardia...rate> 99 Inferior infarct, old...Q >35mS, II III aVF. Sinus. T wave inversion in I and aVL seen in previous EKG. No STEMI. I have reviewed and interpreted ECG and agree with software generated interpretation.
[2021-08-27 14:11] LABS: Abs Immature Grans 0.02 10^3/uL (0.0-0.06); Absolute Basophil Count 0.03 10^3/uL (0.0-0.2); Absolute Eosinophil Count 0.11 10^3/uL (0.0-0.7); Absolute Monocyte Count 0.61 10^3/uL (0.1-0.8); Absolute Neutrophil Count 5.27 10^3/uL (1.2-6.7); Basophils % 0.4; Eosinophils % 1.5; HCT 34.6 % (36.0-46.0); HGB 11.9 g/dL (11.2-15.7); Immature Grans % 0.3; Lymphocytes % 16.6; MCH 30.4 pg (27.0-33.0); MCHC 34.4 % (32.0-36.0); MCV 89 fL (80-95); MPV 10.9 fL (8.0-11.0); Monocytes % 8.4; Neutrophils % 72.8; Platelet Count 188 10^3/uL (130-400); RBC 3.91 10^6/uL (3.93-5.22); RDW-SD 42.1 fL; WBC 7.24 10^3/uL (4.4-10.8)
--- NOTE | 2021-08-27 14:18 | DI.RAD_ITS ---
Exam(s) XR PORTABLE CHEST AP EXAM: XR PORTABLE CHEST AP CLINICAL HISTORY: chest pain TECHNIQUE: 2D digital imaging was performed of the chest. One image was obtained. An AP view was ob tained. COMPARISON: CR,XR XR PORTABLE CHEST AP from 08/25/2021 FINDINGS: MEDIASTINUM: Normal. HEART: Normal. PULMONARY VASCULATURE: Normal. LUNGS: Clear. PLEURAL SPACE: No pleural effusion or pneumothorax. BONE:Within normal limits for the patient's age. OTHER FINDINGS:There is unchanged elevation of the right hemidiaphragm. IMPRESSION: No acute pulmonary findings. DATA REPOSITORY: RADIATION DOSE DELIVERED:
[2021-08-27 14:34] LABS: ALT 26 U/L (14-59); AST 19 U/L (15-37); Albumin 3.1 g/dL (3.4-5.0); Alkaline Phosphatase 103 U/L (46-116); Anion Gap 8.8 mmol/L (3-11); BUN 18 mg/dL (7-18); Bilirubin, Total 0.7 mg/dL (0.2-1.0); CO2 27.2 mmol/L (21.0-32.0); CREATININE 1.3 mg/dL (0.55-1.02); Chloride 102 mmol/L (98-107); Estimated GFR 39.02 (mL/min/1.73m2); Glucose 305 mg/dL (74-106); Magnesium 1.9 mg/dL (1.8-2.4); NT-proBNP 241 pg/mL (<300); Potassium 4.4 mmol/L (3.5-5.1); Sodium 138 mmol/L (136-145); Total Protein 6.5 g/dL (6.4-8.2)
[2021-08-27 14:38] LABS: Troponin I 92 ng/L (<or=60)
--- NOTE | 2021-08-27 15:23 | W.ED.GENAD ---
Discharge Plan Disposition Patient Disposition: [facility] INPATIENT Condition: Stable Discharge Details Chief Complaint: Chest Pain Clinical Impression: Chest pain at rest, NSTEMI (non-ST elevated myocardial infarction), Diabetes mellitus with neuropathy Admit Date/Time: 08/27/21 16:40 Admit Provider: Jodi Perez Attending Provider: Jodi Perez Primary Care Provider: Savanna Guillen ED Provider: Mary Reynolds Discharge Instructions Activity:: Bedrest Equipment/Supplies:: No Equipment Needed Diet:: NPO Discharge Data Discharge Date/Time-TO BE ENTERED AT DEPARTURE: 08/27/21 17:51 Medical Decision Making Patient with a EKG does not appear ischemic Heart score of 5 with elevated troponin and recent COVID-19 Concern for unstable angina with recurrently elevated troponin chest pain History of coronary artery disease and drug-eluting stent Recently admitted to this facility with trending down of troponins and subsequent discharge home yesterday discussed with department of cardiology who is unable to accept patient but recommends catheterization Patient is pain-free at time of reassessment and resting comfortably in room I called several other local hospitals at the recommendation of [facility], called [facility] who is unable to accept patient, [facility] who is at capacity And had a conversation with , [facility] in [facility] cardiology who is excepted patient pending bed availability, likely tomorrow Recommends heparin bolus and infusion, received aspirin Lab Data Lab results reviewed: Yes I reviewed the patient's lab results. HPI General Date/Time Provider Initiated Documentation: 08/27/21 11:46. HPI Narrative: This is a 85-year-old female with history of coronary artery disease, poorly controlled diabetes, asthma, recent COVID, Alzheimer's dementia, DNR/DNI status presents with report of recurrent chest pain. Patient was discharged from the hospital yesterday after receiving heparin, aspirin, nitroglycerin as needed She states her pain is consistent with her prior assessments. She states it started last evening and has persisted through the evening. She is not currently having any discomfort. pt took 2 nitroglycerin this morning. Related Data Home Medications Medication Instructions Recorded Confirmed diaper,brief,adult,disposable #126 ea 12/24/19 08/27/21 flash glucose sensor (FreeStyle #1 ea 12/24/19 08/27/21 Saurabh 14 Day Sensor kit) incontinence pad, liner, disp #312 ea 12/24/19 08/27/21 (Poise Pads) nitroglycerin 0.4 mg sublingual 0.4 mg sublingual Q5 MIN PRN X3 12/24/19 08/27/21 tablet (Nitrostat) PRN chest pain #50 tabs pen needle, diabetic 32 gauge x #200 ea 06/18/20 08/27/2132 (BD Ultra-Fine Marilyn Pen Needle) turmeric 400 mg capsule 400 mg PO DAILY 06/18/20 08/27/21 flash glucose scanning reader #2 ea 07/03/20 08/27/21 (FreeStyle Saurabh 14 Day [place]) isosorbide mononitrate 30 mg 30 mg PO DAILY #90 tabs 11/11/20 08/27/21 tablet,extended release 24 hr rosuvastatin 5 mg tablet (Crestor) 5 mg PO DAILY #90 tabs 01/12/21 08/27/21 nortriptyline 10 mg capsule 10 mg PO HS #90 caps 02/09/21 08/27/21 donepezil 10 mg tablet 10 mg PO QHS #90 tabs 04/20/21 08/27/21 albuterol sulfate 90 mcg/actuation 1 - 2 puff inhalation Q4H PRN ##1 05/07/21 08/27/21 aerosol inhaler (ProAir HFA) pregabalin 50 mg capsule 50 mg PO BID #60 caps 06/03/21 08/27/21 pantoprazole 40 mg tablet,delayed 40 mg PO DAILY 06/04/21 08/27/21 release insulin glargine 100 unit/mL (3 50 unit (0.5 mL) subcut BID #30 mL 06/08/21 08/27/21 mL) subcutaneous pen (Lantus Solostar U-100 Insulin) budesonide-formoterol HFA 160 2 puff inhalation BID #10.2 grams 06/09/21 08/27/21 mcg-4.5 mcg/actuation aerosol inhaler (Symbicort) guaifenesin 1,200 mg tablet, 1,200 mg PO Q12H PRN cold symptoms 06/12/21 08/27/21 extended release 12 hr (Mucinex) #30 tabs albuterol sulfate 2.5 mg/3 mL 2.5 mg (3 mL) inhalation Q4H PRN 06/17/21 08/27/21 (0.083 %) solution for nebulization shortness of breath or wheezing #180 mL ropinirole 1 mg tablet 1 mg PO QPM #90 tabs 06/23/21 08/27/21 memantine 10 mg tablet 10 mg PO BID #180 tabs 07/06/21 08/27/21 clindamycin HCl 150 mg capsule 600 mg PO ONCE dental prophylactic 07/12/21 08/27/21 #4 caps metoprolol tartrate 25 mg tablet 25 mg PO BID #180 tabs 07/14/21 08/27/21 nebulizer and compressor #1 ea 07/16/21 08/27/21 nebulizer accessories #2 ea 07/21/21 08/27/21 aspirin 81 mg tablet,delayed 81 mg PO HS #90 tabs 08/25/21 08/27/21 release clopidogrel 75 mg tablet 75 mg PO DAILY #30 tabs 08/26/21 08/27/21 Previous Rx's Medication Instructions Recorded diaper,brief,adult,disposable #126 ea 12/24/19 flash glucose sensor (FreeStyle #1 ea 12/24/19 Saurabh 14 Day Sensor kit) incontinence pad, liner, disp #312 ea 12/24/19 (Poise Pads) nitroglycerin 0.4 mg sublingual 0.4 mg sublingual Q5 MIN PRN X3 12/24/19 tablet (Nitrostat) PRN chest pain #50 tabs pen needle, diabetic 32 gauge x #200 ea 06/18/20 (BD Ultra-Fine Marilyn Pen Needle) flash glucose scanning reader #2 ea 07/03/20 (FreeStyle Saurabh 14 Day [place]) isosorbide mononitrate 30 mg 30 mg PO DAILY #90 tabs 11/11/20 tablet,extended release 24 hr rosuvastatin 5 mg tablet (Crestor) 5 mg PO DAILY #90 tabs 01/12/21 nortriptyline 10 mg capsule 10 mg PO HS #90 caps 02/09/21 donepezil 10 mg tablet 10 mg PO QHS #90 tabs 04/20/21 albuterol sulfate 90 mcg/actuation 1 - 2 puff inhalation Q4H PRN ##1 05/07/21 aerosol inhaler (ProAir HFA) pregabalin 50 mg capsule 50 mg PO BID #60 caps 06/03/21 insulin glargine 100 unit/mL (3 50 unit (0.5 mL) subcut BID #30 mL 06/08/21 mL) subcutaneous pen (Lantus Solostar U-100 Insulin) budesonide-formoterol HFA 160 2 puff inhalation BID #10.2 grams 06/09/21 mcg-4.5 mcg/actuation aerosol inhaler (Symbicort) guaifenesin 1,200 mg tablet, 1,200 mg PO Q12H PRN cold symptoms 06/12/21 extended release 12 hr (Mucinex) #30 tabs albuterol sulfate 2.5 mg/3 mL 2.5 mg (3 mL) inhalation Q4H PRN 06/17/21 (0.083 %) solution for nebulization shortness of breath or wheezing #180 mL ropinirole 1 mg tablet 1 mg PO QPM #90 tabs 06/23/21 memantine 10 mg tablet 10 mg PO BID #180 tabs 07/06/21 clindamycin HCl 150 mg capsule 600 mg PO ONCE dental prophylactic 07/12/21 #4 caps metoprolol tartrate 25 mg tablet 25 mg PO BID #180 tabs 07/14/21 nebulizer and compressor #1 ea 07/16/21 nebulizer accessories #2 ea 07/21/21 aspirin 81 mg tablet,delayed 81 mg PO HS #90 tabs 08/25/21 release clopidogrel 75 mg tablet 75 mg PO DAILY #30 tabs 08/26/21 Allergies Allergy/AdvReac Type Severity Reaction Status Date / Time Penicillins Allergy Severe skin rash Verified 08/27/21 11:21 atorvastatin AdvReac Intermediate muscle Verified 08/27/21 11:21 aches metformin AdvReac Intermediate Diarrhea Verified 08/27/21 11:21 oxybutynin AdvReac Intermediate makes Verified 08/27/21 11:21 memory worse General Stated Complaint: Chest Pain RAFAELA: 3 Review of Systems 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, 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; 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 Pylori Status post total knee replacement, right (Acute) DOS: 06/26/2018 Dr. Turner Esophagitis (Acute 12/13/16) Dehydration (Acute) Transient global amnesia (Acute) HEAD (dyspnea on exertion) (Acute) Chest pain at rest (Acute) Status post total knee replacement (Acute) ASCVD (arteriosclerotic cardiovascular disease) (Acute) Cardiloogy Stefan Munguia Carpal tunnel syndrome on right (Acute) s/p ECTR DOS: 03/04/20 Derangement of left acromioclavicular joint (Acute) Obesity (Chronic) Tendonitis of left rotator cuff (Acute) Colitis (Acute) resolved. Primary osteoarthritis of right knee (Chronic) Tinnitus of both ears (Acute 09/26/14) Skin lesion of left ear (Acute 10/31/15) Sensorineural hearing loss, bilateral (Acute 09/13/13) Sciatica (Acute 02/19/11) Primary osteoarthritis involving multiple joints (Acute 10/30/14) Diverticulitis of colon (Acute 02/19/11) RECURRENT Diabetic neuropathy (Chronic 01/24/14) peripheral neuropathy Medical History JEMIMA (acute kidney injury) Alzheimer's dementia Angina at rest (02/19/11) very rare, follow with Dr. Fiore Atherosclerosis of [place] coronary artery of [place] heart with angina pectoris UNSTABLE ANGINA, CATH 01/2011 JOHN to OM1 EF 65%. MPI 06/10/11 no ischemia, sm septal defect, nl EF CAD (coronary artery disease) Chest pain (04/28/14) Chronic kidney disease, stage III (moderate) Edema (09/05/15) nl EF, proably venous Essential hypertension (07/27/12) goal 140/90 Fibromyalgia (12/18/14) Dx 12/[address] Kraft Rheum [facility] Gastritis, chronic (12/13/16) with gastric polyps. (12/13/16 report of operation). [place] GERD (gastroesophageal reflux disease) H/O diverticulitis of colon Hearing loss of both ears History of rheumatic fever Hyperlipidemia (02/19/11) LDL baseline 127 intol ator, simv 20mg Hypertension Loss of equilibrium Mild obstructive sleep apnea (06/29/20) Old myocardial infarction 1999 RANDEE (obstructive sleep apnea) Osteopenia (02/19/11) T -1.6 Osteoporosis Pneumonia Positive cardiac stress test (06/30/17) has sched cardiac cath 07/[address] Arnett. Pulmonary edema Rectal bleed Sciatica Syncope (05/15/14) neg w/u Type 2 diabetes mellitus Urinary incontinence (06/05/14) Sacral stimulator: Dr Stokes in [place] Surgical History Colonoscopy - MAC (12/13/16) Coronary Stent (07/12/17) [facility] [place] Kenyon Arnett MD report date . procedures: coronary angiography,left heart catherization,coronary stent insertion. x2 EGD - MAC (12/13/16) Postsurgical percutaneous transluminal coronary angioplasty status 2008 S/P right knee arthroscopy Dr. Galloway >10 years Status post implantation of urinary electronic stimulator device Tonsillectomy Family History Father , [place] Heart disease Hypertension Sister , age 76 Stomach cancer Colon cancer Mother , at age 102 Hypertension Heart disease Paternal Grandfather Stroke Niece No problems noted. Social History Smoking/Tobacco Use Status: Former Tobacco Use Quit Date: 02/15/68 Tobacco: How many years used: 18 Second Hand Exposure: No Smoking risk assessment performed?: Yes Alcohol Intake: current Alcohol Intake frequency: holidays/special occasions only Alcohol type: wine Drug use: Never Substance use type: does not use Adopted: No Caregiver/Support person: Yes Foster care: No Household members: friend(s) Housing: house Number of Children: 0 Communication Needs: Hard of Hearing and Corrective Lenses Education Level: high school Do you need help understanding health information?: Always current occupation: retired Pets and animals: Yes Pets and animals: cat(s) Sexually active: No Do you think of yourself as: straight/heterosexual Current gender identity: female What is your relationship status?: living with partner How often do you get together with friends or relatives?: once per week Do you belong to any clubs or organized social groups?: yes Panel score (0-1 are the most socially isolated patients): 2 What type of physical activity do you participate in: walking and sedentary lifestyle Duration: 15-30 minutes/day Frequency: 1-2 times per week Shannan/Zoroastrianism: Pentecostal Special shannan needs: No Seatbelt use: always Drive intox or ride w/intox route delivery driver: No Working smoke detector in home: Yes Fire extinguisher in home: Yes Carbon monox detector in home: Yes Do you feel safe at home: Yes Do you feel safe in your relationship?: Yes Additional Social history: Sonia has lived with her partner, Jessenia, for more than 60 years. They met at the [facility] in [place], [place]. Jessenia is from [place]. They retired here, not sure when a long time ago. 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 Pleasant. Worked on paperwork at 03/24/21 visit: Jessenia is health care agent; Sonia chose DNR/DNI but with limited interventions included IVF and antibiotics. Exam Const General: cooperative, comfortable and no acute distress Orientation: alert and oriented x3 Eyes Pupils: PERRL Resp Effort & Inspection: normal respiratory effort Auscultation: clear to auscultation bilaterally Cardio Rate: regular rate Rhythm: regular rhythm Heart Sounds: no murmurs GI Inspection: normal to inspection Auscultation: normal bowel sounds Skin General skin exam: no rashes or lesions noted Neuro General: patient alert and patient oriented x3 Extrem Other: 1+ edema to bilateral lower extremities distal pulses intact Course Vital Signs Vital signs: Vital Signs Pulse 103 H 08/27/21 11:18 Respiratory Rate 24 08/27/21 11:18 Blood Pressure 144/66 H 08/27/21 11:18 Pulse Oximetry 99 08/27/21 11:18 Pulse 73 08/27/21 14:16 Pulse 76 08/27/21 14:20 Respiratory Rate 22 08/27/21 14:20 Respiratory Effort 08/27/21 13:14 Respiratory Depth Normal 08/27/21 13:14 Respiratory Pattern Normal 08/27/21 13:14 Blood Pressure 112/39 L 08/27/21 14:16 Blood Pressure Mean 58 08/27/21 14:16 Blood Pressure Position Sitting 08/27/21 11:18 Pulse Oximetry 97 08/27/21 14:20 Oxygen Delivery Method Room Air 08/27/21 11:18 Oxygen Flow Rate 0 08/27/21 11:18 Pain Level 8 08/27/21 13:14 Lab/Test Results Lab/Test Results: Laboratory Tests Range/Units 08/27/21 08/27/21 13:56 13:56 WBC (4.4-10.8) 10^3/uL 7.24 RBC (3.93-5.22) 10^6/uL 3.91 L Hgb (11.2-15.7) g/dL 11.9 Hct (36.0-46.0) % 34.6 L MCV (80-95) fL 89 MCH (27.0-33.0) pg 30.4 MCHC (32.0-36.0) % 34.4 RDW (11.7-14.6) % 13.0 Plt Count (130-400) 10^3/uL 188 MPV (8.0-11.0) fL 10.9 Immature Gran % 0.3 Neutrophils % 72.8 Lymphocytes % 16.6 Monocytes % 8.4 Eosinophils % 1.5 Basophils % 0.4 Nucleated RBC % (0.0-0.3) % 0.0 Absolute Neutrophils (1.2-6.7) 10^3/uL 5.27 Absolute Lymphocytes (1.2-3.4) 10^3/uL 1.20 Absolute Monocytes (0.1-0.8) 10^3/uL 0.61 Absolute Eosinophils (0.0-0.7) 10^3/uL 0.11 Absolute Basophils (0.0-0.2) 10^3/uL 0.03 Sodium (136-145) mmol/L 138 Potassium (3.5-5.1) mmol/L 4.4 Chloride (98-107) mmol/L 102 Carbon Dioxide (21.0-32.0) mmol/L 27.2 Anion Gap (3-11) mmol/L 8.8 BUN (7-18) mg/dL 18 Creatinine (0.55-1.02) mg/dL 1.3 H Estimated GFR/1.73 m2 (mL/min/1.73m2) 39.02 Glucose (74-106) mg/dL 305 H Calcium (8.5-10.1) mg/dL 9.0 Magnesium (1.8-2.4) mg/dL 1.9 Total Bilirubin (0.2-1.0) mg/dL 0.7 AST (15-37) U/L 19 ALT (14-59) U/L 26 Alkaline Phosphatase (46-116) U/L 103 Troponin I (<or=60) ng/L 92 H* NT-Pro-B Natriuret Pep (<300) pg/mL 241 Total Protein (6.4-8.2) g/dL 6.5 Albumin (3.4-5.0) g/dL 3.1 L Critical Care Time Critical Care Time Attestation: IV heparin, telemetry monitoring, aspirin, cardiology consultation, [facility], [facility] [place] and accepted for cardiac catheterization tomorrow Admission to the hospital, diagnostic lab interpretation, ED diagnostic imaging interpretation
[2021-08-27] MEDS: Aspirin 81 MG CHEW 324 MG CH (16:06)
[2021-08-27 16:26] LABS: Troponin I 106 ng/L (<or=60)
[2021-08-27 16:30] LABS: Source Nasal/Nares
[2021-08-27 17:15] LABS: Abs Immature Grans 0.01 10^3/uL (0.0-0.06); Absolute Basophil Count 0.04 10^3/uL (0.0-0.2); Absolute Eosinophil Count 0.12 10^3/uL (0.0-0.7); Absolute Lymphocyte Count 1.54 10^3/uL (1.2-3.4); Absolute Monocyte Count 0.66 10^3/uL (0.1-0.8); Absolute Neutrophil Count 4.92 10^3/uL (1.2-6.7); Basophils % 0.5; Eosinophils % 1.6; HCT 35.2 % (36.0-46.0); HGB 11.7 g/dL (11.2-15.7); Immature Grans % 0.1; Lymphocytes % 21.1; MCH 29.8 pg (27.0-33.0); MCHC 33.2 % (32.0-36.0); MCV 90 fL (80-95); MPV 10.9 fL (8.0-11.0); Monocytes % 9.1; Neutrophils % 67.6; Platelet Count 186 10^3/uL (130-400); RBC 3.93 10^6/uL (3.93-5.22); RDW 13.1 % (11.7-14.6); WBC 7.29 10^3/uL (4.4-10.8)
[2021-08-27 17:19] LABS: PTT Activated 23.2 sec (21.0-27.5); Prothrombin Time 10.5 sec (9.3-11.0)
[2021-08-27 17:20] LABS: COVID-19 PCR Negative (Negative)
[2021-08-27 17:31] LABS: Troponin I 109 ng/L (<or=60)
--- NOTE | 2021-08-27 18:43 | W.PM.HP.N ---
Date of service: 08/27/21 Time of Service: 18:43 Assessment and Plan Assessment and plan (1) NSTEMI (non-ST elevated myocardial infarction): Status: Acute Assessment and plan: Continue heparin drip, aspirin, plavix, nitroglycerin SL prn chest pain Plan to be transferred to [facility] 08/28/21 am for cath once bed available. Accepting MD: Dr Feliciano. Discussed with Dr Perez (2) Asthma: Status: Chronic Assessment and plan: chronic - controlled, Continue levalbuterol PRN (3) Uncontrolled diabetes mellitus: Status: Chronic Assessment and plan: Continue current home medications (4) Alzheimer's dementia without behavioral disturbance: Status: Chronic Assessment and plan: Continue home meds History of Present Illness History of Present Illness Chief Complaint: Difficulty breathing; Covid 19 +, Narrative: Sonia is an 85-year-old female patient with significant past medical history of hypertension, hyperlipidemia, coronary artery stents, CKD, fibromyalgia, obstructive sleep apnea, GERD, asthma, type 2 diabetes, Alzheimer's,and a cardiac murmur who presented to the [facility] reporting positive COVID antigen test 08/07/2021.?She also reported developed body aches, dry cough, rhinitis, sinus congestion, chest congestion, mild shortness of breath, and wheeze. At that time she denied other symptoms of illness. Her SP02 was 92% on room air, close to her baseline. She was speaking in full sentences, no acute respiratory distress. Her lungs were clear to auscultation throughout without wheeze, rhonchi, or rales. At the clinic she did test positive for Covid 19 and negative for flu. She was prescribed paxlovid. She came to the [facility] Emergency Department 08/25 with the complaint of substernal chest pain that started while she was at home, sitting in a chair, no exertion. Her EKG showed a heart rate of 111 read as atrial ventricular dual placed complexes. Previous EKG noted pacer spikes. There was no STEMI, suspected Sinus Tachycardia. After being in the Emergency Department for a couple of hours her chest pain got worse, and she denied any other associated symptoms. Her first tropoinin was elevated at 90, mag was 1.7 and repleted. She was given 324 mg of aspirin. her D-Dimer was 726 with an age-adjusted cut off. Her chest xray was unremarkable. She had no relief of her chest pain with sublingual nitroglycerin. Repeat troponin was 105. She was admitted to the medical surgical floor for NSTEMI. She was discharged to home on 08/26/2021. She returns today with returning chest pain, shse stated her pain is consistent with her prior assessments. She reported it began last evening and persisted all night. She took two nitroglycerin in the morning and it was completely relieved. With the concern this is unstable angina in the light of Covid 19 and continued elevated troponin's, [facility] cardiology was consulted. They accepted the patient tomorrow 08/28/2021. Arrangements will be made for transfer. She is admitted to the medical surgical unit overnight. Review of Systems Narrative: 13 point review of systems otherwise unrevealing or stable. 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, 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; 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 Pylori Status post total knee replacement, right (Acute) DOS: 06/26/2018 Dr. Turner Esophagitis (Acute 12/13/16) Dehydration (Acute) Transient global amnesia (Acute) HEAD (dyspnea on exertion) (Acute) Chest pain at rest (Acute) Status post total knee replacement (Acute) ASCVD (arteriosclerotic cardiovascular disease) (Acute) Cardiloogy Stefan Munguia Carpal tunnel syndrome on right (Acute) s/p ECTR DOS: 03/04/20 Derangement of left acromioclavicular joint (Acute) Obesity (Chronic) Tendonitis of left rotator cuff (Acute) Colitis (Acute) resolved. Primary osteoarthritis of right knee (Chronic) Tinnitus of both ears (Acute 09/26/14) Skin lesion of left ear (Acute 10/31/15) Sensorineural hearing loss, bilateral (Acute 09/13/13) Sciatica (Acute 02/19/11) Primary osteoarthritis involving multiple joints (Acute 10/30/14) Diverticulitis of colon (Acute 02/19/11) RECURRENT Diabetic neuropathy (Chronic 01/24/14) peripheral neuropathy Medical History JEMIMA (acute kidney injury) Alzheimer's dementia Angina at rest (02/19/11) very rare, follow with Dr. 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 MPI 06/10/11 no ischemia, sm septal defect, nl EF CAD (coronary artery disease) Chest pain (04/28/14) Chronic kidney disease, stage III (moderate) Edema (09/05/15) nl EF, proably venous Essential hypertension (07/27/12) goal 140/90 Fibromyalgia (12/18/14) Dx 12/[address] Kraft Rheum [facility] Gastritis, chronic (12/13/16) with gastric polyps. (12/13/16 report of operation). NC GERD (gastroesophageal reflux disease) H/O diverticulitis of colon Hearing loss of both ears History of rheumatic fever Hyperlipidemia (02/19/11) LDL baseline 127 intol ator, simv 20mg Hypertension Loss of equilibrium Mild obstructive sleep apnea (06/29/20) Old myocardial infarction 1999 RANDEE (obstructive sleep apnea) Osteopenia (02/19/11) T -1.6 Osteoporosis Pneumonia Positive cardiac stress test (06/30/17) has sched cardiac cath 07/[address] Arnett. Pulmonary edema Rectal bleed Sciatica Syncope (05/15/14) neg w/u Type 2 diabetes mellitus Urinary incontinence (06/05/14) Sacral stimulator: Dr Stokes in [facility] Surgical History Colonoscopy - MAC (12/13/16) Coronary Stent (07/12/17) [facility]. Kenyon Arnett MD report date . procedures: coronary angiography,left heart catherization,coronary stent insertion. x2 EGD - MAC (12/13/16) Postsurgical percutaneous transluminal coronary angioplasty status 2008 S/P right knee arthroscopy Dr. Galloway >10 years Status post implantation of urinary electronic stimulator device Tonsillectomy Family History Father , [place] Heart disease Hypertension Sister , age 76 Stomach cancer Colon cancer Mother , at age 102 Hypertension Heart disease Paternal Grandfather Stroke Niece No problems noted. Social History Smoking/Tobacco Use Status: Former Tobacco Use Quit Date: 02/15/68 Tobacco: How many years used: 18 Second Hand Exposure: No Smoking risk assessment performed?: Yes Alcohol Intake: current Alcohol Intake frequency: holidays/special occasions only Alcohol type: wine Drug use: Never Substance use type: does not use Adopted: No Caregiver/Support person: Yes Foster care: No Household members: friend(s) Housing: house Number of Children: 0 Communication Needs: Hard of Hearing and Corrective Lenses Education Level: high school Do you need help understanding health information?: Always current occupation: retired Pets and animals: Yes Pets and animals: cat(s) Sexually active: No Do you think of yourself as: straight/heterosexual Current gender identity: female What is your relationship status?: living with partner How often do you get together with friends or relatives?: once per week Do you belong to any clubs or organized social groups?: yes Panel score (0-1 are the most socially isolated patients): 2 What type of physical activity do you participate in: walking and sedentary lifestyle Duration: 15-30 minutes/day Frequency: 1-2 times per week Shannan/Tenriism: Hindu Special shannan needs: No Seatbelt use: always Drive intox or ride w/intox line driver: No Working smoke detector in home: Yes Fire extinguisher in home: Yes Carbon monox detector in home: Yes Do you feel safe at home: Yes Do you feel safe in your relationship?: Yes Additional Social history: Sonia has lived with her partner, Jessenia, for more than 60 years. They [facility] at the [facility] in [place], [place]. Jessenia is from [place]. They retired here, not sure when a long time ago. 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 Pleasant. Worked on paperwork at 03/24/21 visit: Jessenia is health care agent; Sonia chose DNR/DNI but with limited interventions included IVF and antibiotics. Meds Allergies and Home Medications Allergies Allergy/AdvReac Type Severity Reaction Status Date / Time Penicillins Allergy Severe skin rash Verified 08/27/21 11:21 atorvastatin AdvReac Intermediate muscle Verified 08/27/21 11:21 aches metformin AdvReac Intermediate Diarrhea Verified 08/27/21 11:21 oxybutynin AdvReac Intermediate makes Verified 08/27/21 11:21 memory worse Home Medications Medication Instructions Recorded Confirmed Type diaper,brief,adult,disposable #126 ea 12/24/19 08/27/21 Rx flash glucose sensor (FreeStyle #1 ea 12/24/19 08/27/21 Rx Saurabh 14 Day Sensor kit) incontinence pad, liner, disp #312 ea 12/24/19 08/27/21 Rx (Poise Pads) nitroglycerin 0.4 mg sublingual 0.4 mg sublingual Q5 MIN PRN X3 12/24/19 08/27/21 Rx tablet (Nitrostat) PRN chest pain #50 tabs pen needle, diabetic 32 gauge x #200 ea 06/18/20 08/27/21 Rx 5/32 (BD Ultra-Fine Amrilyn Pen Needle) turmeric 400 mg capsule 400 mg PO DAILY 06/18/20 08/27/21 History flash glucose scanning reader #2 ea 07/03/20 08/27/21 Rx (FreeStyle Saurabh 14 Day [place]) isosorbide mononitrate 30 mg 30 mg PO DAILY #90 tabs 11/11/20 08/27/21 Rx tablet,extended release 24 hr rosuvastatin 5 mg tablet (Crestor) 5 mg PO DAILY #90 tabs 01/12/21 08/27/21 Rx nortriptyline 10 mg capsule 10 mg PO HS #90 caps 02/09/21 08/27/21 Rx donepezil 10 mg tablet 10 mg PO QHS #90 tabs 04/20/21 08/27/21 Rx albuterol sulfate 90 mcg/actuation 1 - 2 puff inhalation Q4H PRN ##1 05/07/21 08/27/21 Rx aerosol inhaler (ProAir HFA) pregabalin 50 mg capsule 50 mg PO BID #60 caps 06/03/21 08/27/21 Rx pantoprazole 40 mg tablet,delayed 40 mg PO DAILY 06/04/21 08/27/21 History release insulin glargine 100 unit/mL (3 50 unit (0.5 mL) subcut BID #30 mL 06/08/21 08/27/21 Rx mL) subcutaneous pen (Lantus Solostar U-100 Insulin) budesonide-formoterol HFA 160 2 puff inhalation BID #10.2 grams 06/09/21 08/27/21 Rx mcg-4.5 mcg/actuation aerosol inhaler (Symbicort) guaifenesin 1,200 mg tablet, 1,200 mg PO Q12H PRN cold symptoms 06/12/21 08/27/21 Rx extended release 12 hr (Mucinex) #30 tabs albuterol sulfate 2.5 mg/3 mL 2.5 mg (3 mL) inhalation Q4H PRN 06/17/21 08/27/21 Rx (0.083 %) solution for nebulization shortness of breath or wheezing #180 mL ropinirole 1 mg tablet 1 mg PO QPM #90 tabs 06/23/21 08/27/21 Rx memantine 10 mg tablet 10 mg PO BID #180 tabs 07/06/21 08/27/21 Rx clindamycin HCl 150 mg capsule 600 mg PO ONCE dental prophylactic 07/12/21 08/27/21 Rx #4 caps metoprolol tartrate 25 mg tablet 25 mg PO BID #180 tabs 07/14/21 08/27/21 Rx nebulizer and compressor #1 ea 07/16/21 08/27/21 Rx nebulizer accessories #2 ea 07/21/21 08/27/21 Rx aspirin 81 mg tablet,delayed 81 mg PO HS #90 tabs 08/25/21 08/27/21 Rx release clopidogrel 75 mg tablet 75 mg PO DAILY #30 tabs 08/26/21 08/27/21 Rx Exam Const General: cooperative, comfortable and no acute distress Orientation: alert and oriented x3 HENMT Head: normal to inspection Ears: hearing grossly normal bilaterally, external ears normal and TM's normal bilaterally General nose exam: external nose normal Face and sinus: normal facial exam Mouth: oral mucosae normal Teeth and gingiva: dentition normal Throat: posterior oropharynx normal Eyes General: appearance normal, both eyes and all related structures Eyelids: eyelids normal Pupils: PERRL EOM: EOM intact bilaterally Neck Neck: normal visual inspection Lymphatic: no lymphadenopathy noted Chest Chest: normal inspection of the chest Resp Effort & Inspection: normal respiratory effort Auscultation: clear to auscultation bilaterally Cardio Rate: regular rate Rhythm: regular rhythm Heart Sounds: no murmurs GI Inspection: normal to inspection Palpation: soft, not firm, no guarding, no hepatosplenomegaly, no masses and nontender Auscultation: normal bowel sounds Back/Spine/Pelvis Back: no CVA tenderness Skin General skin exam: no rashes or lesions noted Neuro General: patient alert and patient oriented x3 Cognition: normal cognition Speech: speech normal Gait: normal gait Motor: muscle tone normal throughout Sensory Exam: no sensory deficits noted Extrem General: normal to inspection, full ROM, capillary refill normal and no edema Other: 1+ edema to bilateral lower extremities distal pulses intact Psych Appearance: grossly normal Mental Status: mental status grossly normal Speech and Movement: speech and movement normal Affect: normal affect Thought Process: normal Results Labs Result diagrams: 08/27/21 17:10 08/27/21 13:56 Labs: Laboratory Results - last 24 hr 08/27/21 08/27/21 08/27/21 13:56 13:56 15:10 WBC 7.24 RBC 3.91 L Hgb 11.9 Hct 34.6 L MCV 89 MCH 30.4 MCHC 34.4 RDW 13.0 Plt Count 188 MPV 10.9 Immature Gran % 0.3 Neutrophils % 72.8 Lymphocytes % 16.6 Monocytes % 8.4 Eosinophils % 1.5 Basophils % 0.4 Nucleated RBC % 0.0 Absolute Neutrophils 5.27 Absolute Lymphocytes 1.20 Absolute Monocytes 0.61 Absolute Eosinophils 0.11 Absolute Basophils 0.03 PT INR APTT Sodium 138 Potassium 4.4 Chloride 102 Carbon Dioxide 27.2 Anion Gap 8.8 BUN 18 Creatinine 1.3 H Estimated GFR/1.73 m2 39.02 Glucose 305 H Calcium 9.0 Magnesium 1.9 Total Bilirubin 0.7 AST 19 ALT 26 Alkaline Phosphatase 103 Troponin I 92 H* 106 H* NT-Pro-B Natriuret Pep 241 Total Protein 6.5 Albumin 3.1 L COVID-19 Source SARS-CoV-2 (PCR) 08/27/21 08/27/21 08/27/21 16:30 16:45 16:45 WBC RBC Hgb Hct MCV MCH MCHC RDW Plt Count MPV Immature Gran % Neutrophils % Lymphocytes % Monocytes % Eosinophils % Basophils % Nucleated RBC % Absolute Neutrophils Absolute Lymphocytes Absolute Monocytes Absolute Eosinophils Absolute Basophils PT 10.5 INR 1.0 APTT 23.2 Sodium Potassium Chloride Carbon Dioxide Anion Gap BUN Creatinine Estimated GFR/1.73 m2 Glucose Calcium Magnesium Total Bilirubin AST ALT Alkaline Phosphatase Troponin I 109 H* NT-Pro-B Natriuret Pep Total Protein Albumin COVID-19 Source Nasal/Nares SARS-CoV-2 (PCR) Negative 08/27/21 17:10 WBC 7.29 RBC 3.93 Hgb 11.7 Hct 35.2 L MCV 90 MCH 29.8 MCHC 33.2 RDW 13.1 Plt Count 186 MPV 10.9 Immature Gran % 0.1 Neutrophils % 67.6 Lymphocytes % 21.1 Monocytes % 9.1 Eosinophils % 1.6 Basophils % 0.5 Nucleated RBC % 0.0 Absolute Neutrophils 4.92 Absolute Lymphocytes 1.54 Absolute Monocytes 0.66 Absolute Eosinophils 0.12 Absolute Basophils 0.04 PT INR APTT Sodium Potassium Chloride Carbon Dioxide Anion Gap BUN Creatinine Estimated GFR/1.73 m2 Glucose Calcium Magnesium Total Bilirubin AST ALT Alkaline Phosphatase Troponin I NT-Pro-B Natriuret Pep Total Protein Albumin COVID-19 Source SARS-CoV-2 (PCR) Last Vital Signs Temp 36.3 C L 08/27/21 17:53 Pulse 72 08/27/21 17:53 Resp 17 08/27/21 17:53 BP 116/64 08/27/21 17:53 Pulse Ox 98 08/27/21 17:53
[2021-08-27] MEDS: Metoprolol 12.5 MG TAB 25 MG PO (20:13)
[2021-08-27] MEDS: Memantine 5 MG TAB 10 MG PO (20:14)
[2021-08-27] MEDS: Pregabalin 50 MG CAP PO (20:14)
[2021-08-27] MEDS: rOPINIRole 1 MG TAB PO (20:14)
[2021-08-27] MEDS: Insulin Glargine 300 UNITS/3 ML PEN 50 UNITS SC (20:48)
[2021-08-27 20:52] LABS: Troponin I 100 ng/L (<or=60)
--- NOTE | 2021-08-27 23:17 | W.PM.DS.N ---
Date of service: 08/27/21 Time of Service: 21:17 DS: Diagnosis Discharge Diagnosis (1) NSTEMI (non-ST elevated myocardial infarction): Status: Acute Asessment and Plan: Recurrent chest pain responding to glycerin at home with patient on heparin. Pain rate during transfer via ambulance with ACLS protocol and paramedics though patient is a DNR/DNI. (2) Asthma: Status: Chronic Asessment and Plan: Stable (3) Uncontrolled diabetes mellitus: Status: Chronic Asessment and Plan: Stable with covered use of insulin and glucometer they can adjust. (4) Alzheimer's dementia without behavioral disturbance: Status: Chronic Asessment and Plan: Comfortably in bed stable on medical therapy with Namenda and Aricept. Long-term patient will continue outpatient medications once discharged home. She does live with a partner. Discharge Plan Disposition Patient Disposition: [facility] INPATIENT Condition: Stable Discharge Details Reason For Visit: NSTEMI Admit Date/Time: 08/27/21 16:40 Admit Provider: Jodi Perez Attending Provider: Jodi Perez Primary Care Provider: Savanna Guillen Hospital Course Hospital Course: This is an 85-year-old lady was admitted for non-STEMI and elevated troponins. With Plavix initially on 08/26/2019 which reports and discharged home for outpatient work-up then returned to the ED after having returning resting chest pain responded to nitroglycerin. He was placed on heparin infusion and arrangements were made for her to be transferred to [facility] cardiology in [facility] with bed opening and patient be accepted in transfer the evening of 08/27/2025. Of note patient disposition was placed as inpatient inpatient with no choice for [facility] in [place] to be entered. See admission history and physical for full details of patient's condition which was unchanged during her short stay. She is a DNR/DNI. She was transferred with heparin infusion ongoing without bleeding sequelae. Patient was transferred via ambulance with grinder watch parts and ACLS protocol in place though she was a DNR/DNI. Home Meds and New Rx's Prescriptions: Continued (DME) FreeStyle Saurabh 14 Day Sensor Kit See Rx Instructions .ROUTE .MEDSUPPLY Qty: 1 0RF Rx Instructions: As directed (DME) Poise Pads Pad See Rx Instructions .ROUTE .MEDSUPPLY Qty: 312 12RF Rx Instructions: As directed nitroglycerin [Nitrostat] 0.4 mg tablet, sublingual 0.4 mg Sublingual Q5 MIN PRN X3 PRN (Reason: chest pain) Qty: 50 6RF Rx Instructions: Use as directed (DME) diaper,brief,adult,disposable Misc See Rx Instructions .ROUTE .MEDSUPPLY Qty: 126 12RF Rx Instructions: Size LARGE Change As directed (DME) pen needle, diabetic [BD Ultra-Fine Marilyn Pen Needle] 32 gauge x needle 1 unit Miscellaneous HS Qty: 200 3RF Rx Instructions: TO USE WITH LANTUS SOLOSTART PEN turmeric 400 mg capsule 400 mg PO DAILY Rx Instructions: turmeric with curcumin - recommended by Neuro for memory concerns. 06/18/20 EO donepezil 10 mg tablet 10 mg PO QHS Qty: 90 3RF albuterol sulfate [ProAir HFA] 90 mcg/actuation HFA aerosol inhaler 1 - 2 puff Inhalation Q4H PRN Qty: 1 12RF Rx Instructions: DISPENSE WITH SPACER DX: WHEEZE pregabalin 50 mg capsule 50 mg PO BID Qty: 60 2RF pantoprazole 40 mg tablet,delayed release (DR/EC) 40 mg PO DAILY budesonide-formoterol [Symbicort] 160-4.5 mcg/actuation HFA aerosol inhaler 2 puff inhalation BID Qty: 10.2 6RF (DME) nebulizer and compressor Device See Rx Instructions .Route Qty: 1 0RF Rx Instructions: As directed Mucinex 1,200 mg tablet extended release 12hr 1,200 mg PO Q12H PRN (Reason: cold symptoms) Qty: 30 1RF Rx Instructions: Cough (DME) FreeStyle Saurabh 14 Day [place] Misc See Rx Instructions .ROUTE .MEDSUPPLY Qty: 2 12RF Rx Instructions: As directed isosorbide mononitrate 30 mg tablet extended release 24 hr 30 mg PO DAILY Qty: 90 3RF rosuvastatin [Crestor] 5 mg tablet 5 mg PO DAILY Qty: 90 3RF Rx Instructions: \ 02/19/20 5 mg daily cgc nortriptyline 10 mg capsule 10 mg PO HS Qty: 90 3RF Rx Instructions: for chronic pain and diabetic neuropathy insulin glargine [Lantus Solostar U-100 Insulin] 100 unit/mL (3 mL) insulin pen 50 unit Sub-Q BID Qty: 30 12RF albuterol sulfate 2.5 mg /3 mL (0.083 %) solution for nebulization 2.5 mg inhalation Q4H PRN (Reason: shortness of breath or wheezing) Qty: 180 3RF ropinirole 1 mg tablet 1 mg PO QPM Qty: 90 3RF Rx Instructions: TAKE 1 TABLET BY MOUTH 2 HOURS PRIOR TO BEDTIME memantine 10 mg tablet 10 mg PO BID Qty: 180 3RF clindamycin HCl 150 mg capsule 600 mg PO ONCE Qty: 4 0RF metoprolol tartrate 25 mg tablet 25 mg PO BID Qty: 180 3RF (DME) nebulizer accessories Kit See Rx Instructions .Route Qty: 2 6RF Rx Instructions: As directed aspirin 81 mg tablet,delayed release (DR/EC) 81 mg PO HS Qty: 90 3RF clopidogrel 75 mg Tablet 75 mg PO DAILY Qty: 30 0RF Discharge Instructions Activity:: Bedrest Equipment/Supplies:: No Equipment Needed Diet:: NPO Discharge Orders Discharge Orders: Discharge Order (Routine); Ordered 08/27/21 Ordered By: Kan Garcia Discharge Data Discharge Date/Time-TO BE ENTERED AT DEPARTURE: 08/27/21 21:17 Discharge Comment: PT D/C TO [facility] DS: Summary Time Spent with Patient providing and/or coordinating discharge services: Greater than 30 minutes Status at Discharge Functional status at discharge: bed bound Overall status at discharge: patient is back to baseline Mental Status: other (Baseline dementia which is mild without behavioral abnormalities) Speech and Movement: speech and movement normal (Confabulates at times) Mood: congruent mood and other (Baseline dementia which is mild without behavioral abnormalities) Affect: normal affect Exam Narrative Exam Narrative: Physical exam unchanged from admission history and physical, see documentation by admitting provider., Psych Mental Status: other (Baseline dementia which is mild without behavioral abnormalities) Speech and Movement: speech and movement normal (Confabulates at times) Mood: congruent mood and other (Baseline dementia which is mild without behavioral abnormalities) Affect: normal affect DS: Data Vitals/I&O Vitals and I&O: Vital Signs Temperature 36.8 C 08/27/21 19:15 Temperature Source Tympanic 08/27/21 19:15 Pulse 106 H 08/27/21 21:13 Pulse Rhythm Regular 08/27/21 20:10 Pulse 72 08/27/21 15:20 Respiratory Rate 18 08/27/21 19:15 Respiratory Effort Non-Labored 08/27/21 20:10 Respiratory Depth Normal 08/27/21 20:10 Respiratory Pattern Normal 08/27/21 20:10 Blood Pressure 149/61 H 08/27/21 19:15 Blood Pressure Mean 53 08/27/21 14:46 Blood Pressure Position Sitting 08/27/21 11:18 Pulse Oximetry 96 08/27/21 19:15 Oxygen Delivery Method Room Air 08/27/21 19:15 Oxygen Flow Rate 0 08/27/21 19:15 Pain Level 0 08/27/21 17:53 Comment 08/27/21 17:53 Intake & Output 08/26/21 08/27/21 08/27/21 23:59 11:59 23:59 Intake Total 790 / 790 Balance 790 / 790 Weight 90.718 kg Intake: Oral 790 / 790 Data Completed and Pending Labs on day of discharge: Labs from last 24 hours 08/27/21 08/27/21 08/27/21 23:00 20:20 17:10 WBC 7.29 RBC 3.93 Hgb 11.7 Hct 35.2 L MCV 90 MCH 29.8 MCHC 33.2 RDW 13.1 Plt Count 186 MPV 10.9 Immature Gran % 0.1 Neutrophils % 67.6 Lymphocytes % 21.1 Monocytes % 9.1 Eosinophils % 1.6 Basophils % 0.5 Nucleated RBC % 0.0 Absolute Neutrophils 4.92 Absolute Lymphocytes 1.54 Absolute Monocytes 0.66 Absolute Eosinophils 0.12 Absolute Basophils 0.04 PT INR APTT Cancelled Sodium Potassium Chloride Carbon Dioxide Anion Gap BUN Creatinine Estimated GFR/1.73 m2 Glucose Calcium Magnesium Total Bilirubin AST ALT Alkaline Phosphatase Troponin I 100 H* NT-Pro-B Natriuret Pep Total Protein Albumin COVID-19 Source SARS-CoV-2 (PCR) 08/27/21 08/27/21 08/27/21 16:45 16:45 16:30 WBC RBC Hgb Hct MCV MCH MCHC RDW Plt Count MPV Immature Gran % Neutrophils % Lymphocytes % Monocytes % Eosinophils % Basophils % Nucleated RBC % Absolute Neutrophils Absolute Lymphocytes Absolute Monocytes Absolute Eosinophils Absolute Basophils PT 10.5 INR 1.0 APTT 23.2 Sodium Potassium Chloride Carbon Dioxide Anion Gap BUN Creatinine Estimated GFR/1.73 m2 Glucose Calcium Magnesium Total Bilirubin AST ALT Alkaline Phosphatase Troponin I 109 H* NT-Pro-B Natriuret Pep Total Protein Albumin COVID-19 Source Nasal/Nares SARS-CoV-2 (PCR) Negative 08/27/21 08/27/21 08/27/21 15:10 13:56 13:56 WBC 7.24 RBC 3.91 L Hgb 11.9 Hct 34.6 L MCV 89 MCH 30.4 MCHC 34.4 RDW 13.0 Plt Count 188 MPV 10.9 Immature Gran % 0.3 Neutrophils % 72.8 Lymphocytes % 16.6 Monocytes % 8.4 Eosinophils % 1.5 Basophils % 0.4 Nucleated RBC % 0.0 Absolute Neutrophils 5.27 Absolute Lymphocytes 1.20 Absolute Monocytes 0.61 Absolute Eosinophils 0.11 Absolute Basophils 0.03 PT INR APTT Sodium 138 Potassium 4.4 Chloride 102 Carbon Dioxide 27.2 Anion Gap 8.8 BUN 18 Creatinine 1.3 H Estimated GFR/1.73 m2 39.02 Glucose 305 H Calcium 9.0 Magnesium 1.9 Total Bilirubin 0.7 AST 19 ALT 26 Alkaline Phosphatase 103 Troponin I 106 H* 92 H* NT-Pro-B Natriuret Pep 241 Total Protein 6.5 Albumin 3.1 L COVID-19 Source SARS-CoV-2 (PCR) PFSH All Active Problems (Updated 08/27/21 @ 00:08 by CECILE GUERRERO) NSTEMI (non-ST elevated myocardial infarction) (Acute) SARS-CoV-2 positive (Acute ~08/07/21) Asthma (Chronic) Uncontrolled diabetes mellitus (Chronic) Non-proliferative diabetic retinopathy, mild, right eye (Acute) Obesity (BMI 30.0-34.9) (Chronic) Heart murmur (Acute) Diabetes mellitus with neuropathy (Acute) goal 7.5; insulin begun 07/2016 Alzheimer's dementia without behavioral disturbance (Chronic) 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, 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; 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 Pylori Status post total knee replacement, right (Acute) DOS: 06/26/2018 Dr. Turner Esophagitis (Acute 12/13/16) Dehydration (Acute) Transient global amnesia (Acute) HEAD (dyspnea on exertion) (Acute) Chest pain at rest (Acute) Status post total knee replacement (Acute) ASCVD (arteriosclerotic cardiovascular disease) (Acute) Cardiloogy Stefan Munguia Carpal tunnel syndrome on right (Acute) s/p ECTR DOS: 03/04/20 Derangement of left acromioclavicular joint (Acute) Obesity (Chronic) Tendonitis of left rotator cuff (Acute) Colitis (Acute) resolved. Primary osteoarthritis of right knee (Chronic) Tinnitus of both ears (Acute 09/26/14) Skin lesion of left ear (Acute 10/31/15) Sensorineural hearing loss, bilateral (Acute 09/13/13) Sciatica (Acute 02/19/11) Primary osteoarthritis involving multiple joints (Acute 10/30/14) Diverticulitis of colon (Acute 02/19/11) RECURRENT Diabetic neuropathy (Chronic 01/24/14) peripheral neuropathy Medical History JEMIMA (acute kidney injury) Alzheimer's dementia Angina at rest (02/19/11) very rare, follow with Dr. Fiore Atherosclerosis of [place] coronary artery of [place] heart with angina pectoris UNSTABLE ANGINA, CATH 01/2011 JOHN to OM1 EF 65%. MPI 06/10/11 no ischemia, sm septal defect, nl EF CAD (coronary artery disease) Chest pain (04/28/14) Chronic kidney disease, stage III (moderate) Edema (09/05/15) nl EF, proably venous Essential hypertension (07/27/12) goal 140/90 Fibromyalgia (12/18/14) Dx 12/[address] Kraft Rheum [facility] Gastritis, chronic (12/13/16) with gastric polyps. (12/13/16 report of operation). NC GERD (gastroesophageal reflux disease) H/O diverticulitis of colon Hearing loss of both ears History of rheumatic fever Hyperlipidemia (02/19/11) LDL baseline 127 intol ator, simv 20mg Hypertension Loss of equilibrium Mild obstructive sleep apnea (06/29/20) Old myocardial infarction 1999 RANDEE (obstructive sleep apnea) Osteopenia (02/19/11) T -1.6 Osteoporosis Pneumonia Positive cardiac stress test (06/30/17) has sched cardiac cath 07/[address] Arnett. Pulmonary edema Rectal bleed Sciatica Syncope (05/15/14) neg w/u Type 2 diabetes mellitus Urinary incontinence (06/05/14) Sacral stimulator: Dr Stokes in [facility] Surgical History Colonoscopy - MAC (12/13/16) Coronary Stent (07/12/17) [facility]. Kenyon Arnett MD report date . procedures: coronary angiography,left heart catherization,coronary stent insertion. x2 EGD - MAC (12/13/16) Postsurgical percutaneous transluminal coronary angioplasty status 2008 S/P right knee arthroscopy Dr. Galloway >10 years Status post implantation of urinary electronic stimulator device Tonsillectomy Family History Father , [place] Heart disease Hypertension Sister , age 76 Stomach cancer Colon cancer Mother , at age 102 Hypertension Heart disease Paternal Grandfather Stroke Niece No problems noted. Social History Smoking/Tobacco Use Status: Former Tobacco Use Quit Date: 02/15/68 Tobacco: How many years used: 18 Second Hand Exposure: No Smoking risk assessment performed?: Yes Alcohol Intake: current Alcohol Intake frequency: holidays/special occasions only Alcohol type: wine Drug use: Never Substance use type: does not use Adopted: No Caregiver/Support person: Yes Foster care: No Household members: friend(s) Housing: house Number of Children: 0 Communication Needs: Hard of Hearing and Corrective Lenses Education Level: high school Do you need help understanding health information?: Always current occupation: retired Pets and animals: Yes Pets and animals: cat(s) Sexually active: No Do you think of yourself as: straight/heterosexual Current gender identity: female What is your relationship status?: living with partner How often do you get together with friends or relatives?: once per week Do you belong to any clubs or organized social groups?: yes Panel score (0-1 are the most socially isolated patients): 2 What type of physical activity do you participate in: walking and sedentary lifestyle Duration: 15-30 minutes/day Frequency: 1-2 times per week Shannan/Muslim: Roman Catholic Special shannan needs: No Seatbelt use: always Drive intox or ride w/intox class 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 They [facility] in [place], [place]. Jessenia is from [place]. They retired here, not sure when a long time ago. 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 Pleasant. Worked on paperwork at 03/24/21 visit: Jessenia is health care agent; Sonia chose DNR/DNI but with limited interventions included IVF and antibiotics.
== END 2021-08-27 21:17 | DRG 282 ==
LOC: ER 11:34 → MS 18:06
PROVIDERS: Admitting Provider Internal Medicine; Emergency Provider Physician Assistant; PCP Nurse Practitioner; Visit Provider Internal Medicine
DX: I21.4 Non-ST elevation (NSTEMI) myocardial infarction (principal); E11.65 Type 2 diabetes mellitus with hyperglycemia; J45.909 Unspecified asthma, uncomplicated; G30.9 Alzheimer's disease, unspecified; F02.80 Dementia in other diseases classified elsewhere, unspecified severity, without behavioral disturbance, psychotic disturbance, mood disturbance, and anxiety; N18.9 Chronic kidney disease, unspecified; I12.9 Hypertensive chronic kidney disease with stage 1 through stage 4 chronic kidney disease, or unspecified chronic kidney disease; E11.22 Type 2 diabetes mellitus with diabetic chronic kidney disease; E66.9 Obesity, unspecified; Z68.34 Body mass index [BMI] 34.0-34.9, adult; E11.40 Type 2 diabetes mellitus with diabetic neuropathy, unspecified; E11.3291 Type 2 diabetes mellitus with mild nonproliferative diabetic retinopathy without macular edema, right eye; F01.50 Vascular dementia, unspecified severity, without behavioral disturbance, psychotic disturbance, mood disturbance, and anxiety; Z66 Do not resuscitate; R05.3 Chronic cough; G47.33 Obstructive sleep apnea (adult) (pediatric); M79.7 Fibromyalgia; R59.0 Localized enlarged lymph nodes; Z95.5 Presence of coronary angioplasty implant and graft; K21.9 Gastro-esophageal reflux disease without esophagitis; E78.5 Hyperlipidemia, unspecified; G47.61 Periodic limb movement disorder; Z96.651 Presence of right artificial knee joint; I25.10 Atherosclerotic heart disease of native coronary artery without angina pectoris; M15.9 Polyosteoarthritis, unspecified; Z79.4 Long term (current) use of insulin
CPT/HCPCS: 80053; 87635; 93005; 96365; 96376; 99285; 71045; 83735; 83880; 84484; 85025; 85610; 85730; 93010; 99222; 99239; J3490

== ENCOUNTER → 2021-11-02 09:22 | Outpatient (BNVA) | payer MEDICARE, SELFPAY | PROVIDERS: PCP Nurse Practitioner; Referring Provider Nurse Practitioner; Visit Provider Nurse Practitioner Adult Health | DX: G30.9 Alzheimer's disease, unspecified (principal); F02.80 Dementia in other diseases classified elsewhere, unspecified severity, without behavioral disturbance, psychotic disturbance, mood disturbance, and anxiety; R63.5 Abnormal weight gain | CPT/HCPCS: 99213 ==

== ENCOUNTER 2022-02-08 10:24 | Observation (INO) | payer MEDICARE, SELFPAY ==
[2022-02-08] VITALS (40 sets, daily range): BP systolic 150–188; BP diastolic 51–96; PULSE 63–94; RESP 13–30; TEMP 36.2–36.8; O2SAT 90–98
--- NOTE | 2022-02-08 10:15 | RT.EKG_ITS ---
APPROVED REPORT Exam: Resting ECG Reason for Exam: chest pain Patient Location: E HR:79 bpm ECG Measurements Heart Rate 79 AXIS TX 184 P 67 QRSd 89 QRS -10 QT 407 T 63 QTc 468 Conclusion Sinus rhythm...normal P axis, V-rate 60- 99 Inferior infarct, old...Q >35mS, II III aVF
[2022-02-08 11:00] LABS: Abs Immature Grans 0.02 10^3/uL (0.0-0.06); Absolute Basophil Count 0.05 10^3/uL (0.0-0.2); Absolute Eosinophil Count 0.15 10^3/uL (0.0-0.7); Absolute Lymphocyte Count 1.34 10^3/uL (1.2-3.4); Absolute Neutrophil Count 5.55 10^3/uL (1.2-6.7); Basophils % 0.6; Eosinophils % 1.9; HCT 39.4 % (36.0-46.0); Immature Grans % 0.3; Lymphocytes % 17.4; MCV 88 fL (80-95); MPV 9.9 fL (8.0-11.0); Monocytes % 7.8; Platelet Count 173 10^3/uL (130-400); RBC 4.48 10^6/uL (3.93-5.22); RDW 13.2 % (11.7-14.6); RDW-SD 42.7 fL; WBC 7.71 10^3/uL (4.4-10.8)
--- NOTE | 2022-02-08 11:00 | DI.RAD_ITS ---
Exam(s) XR CHEST 2V PA LATERAL EXAM: XR CHEST 2V PA LATERAL CLINICAL HISTORY: chest pain. TECHNIQUE: 2D digital imaging was performed. COMPARISON: CR XR PORTABLE CHEST AP from 08/27/2021 FINDINGS: 2 views: Heart size is normal. The mediastinum is not widened. Lungs are clear. No infiltrates nor pleural effusions. There is unchanged elevation of the right hemidiaphragm again noted. IMPRESSION: No acute pulmonary findings.Elevation of the right hemidiaphragm again noted. DATA REPOSITORY: RADIATION DOSE DELIVERED:
--- NOTE | 2022-02-08 11:03 | W.ED.GENAD ---
Discharge Plan Disposition Patient Disposition: Admit to [facility] Condition: Serious Discharge Details Chief Complaint: Chest Pain Clinical Impression: Chest pain Primary Care Provider: Savanna Guillen ED Provider: Jah Peterson Home Meds and New Rx's Prescriptions: No Action (DME) FreeStyle Saurabh 14 Day Sensor Kit See Rx Instructions .ROUTE .MEDSUPPLY Qty: 1 0RF Rx Instructions: As directed (DME) Poise Pads Pad See Rx Instructions .ROUTE .MEDSUPPLY Qty: 312 12RF Rx Instructions: As directed (DME) diaper,brief,adult,disposable Misc See Rx Instructions .ROUTE .MEDSUPPLY Qty: 126 12RF Rx Instructions: Size LARGE Change As directed turmeric 400 mg capsule 400 mg PO DAILY Rx Instructions: turmeric with curcumin - recommended by Neuro for memory concerns. 06/18/20 EO donepezil 10 mg tablet 10 mg PO QHS Qty: 90 3RF albuterol sulfate [ProAir HFA] 90 mcg/actuation HFA aerosol inhaler 1 - 2 puff Inhalation Q4H PRN Qty: 1 12RF Rx Instructions: DISPENSE WITH SPACER DX: WHEEZE pantoprazole 40 mg tablet,delayed release (DR/EC) 40 mg PO DAILY budesonide-formoterol [Symbicort] 160-4.5 mcg/actuation HFA aerosol inhaler 2 puff inhalation BID Qty: 10.2 6RF (DME) nebulizer and compressor Device See Rx Instructions .Route Qty: 1 0RF Rx Instructions: As directed Mucinex 1,200 mg tablet extended release 12hr 1,200 mg PO Q12H PRN (Reason: cold symptoms) Qty: 30 1RF Rx Instructions: Cough (DME) FreeStyle Saurabh 14 Day [place] Misc See Rx Instructions .ROUTE .MEDSUPPLY Qty: 2 12RF Rx Instructions: As directed nortriptyline 10 mg capsule 10 mg PO HS Qty: 90 3RF Rx Instructions: for chronic pain and diabetic neuropathy insulin glargine [Lantus Solostar U-100 Insulin] 100 unit/mL (3 mL) insulin pen 50 unit Sub-Q BID Qty: 30 12RF albuterol sulfate 2.5 mg /3 mL (0.083 %) solution for nebulization 2.5 mg inhalation Q4H PRN (Reason: shortness of breath or wheezing) Qty: 180 3RF ropinirole 1 mg tablet 1 mg PO QPM Qty: 90 3RF Rx Instructions: TAKE 1 TABLET BY MOUTH 2 HOURS PRIOR TO BEDTIME memantine 10 mg tablet 10 mg PO BID Qty: 180 3RF metoprolol tartrate 25 mg tablet 25 mg PO BID Qty: 180 3RF (DME) nebulizer accessories Kit See Rx Instructions .Route Qty: 2 6RF Rx Instructions: As directed aspirin 81 mg tablet,delayed release (DR/EC) 81 mg PO HS Qty: 90 3RF nitroglycerin [Nitrostat] 0.4 mg tablet, sublingual 0.4 mg Sublingual Q5 MIN PRN X3 PRN (Reason: chest pain) Qty: 50 6RF Rx Instructions: Use as directed (DME) pen needle, diabetic [BD Ultra-Fine Marilyn Pen Needle] 32 gauge x 5/32 needle 1 unit Miscellaneous HS Qty: 200 3RF Rx Instructions: TO USE WITH LANTUS SOLOSTART PEN clopidogrel 75 mg tablet 75 mg PO DAILY Qty: 90 3RF isosorbide mononitrate 60 mg tablet extended release 24 hr 60 mg PO DAILY Qty: 90 3RF clindamycin HCl 150 mg capsule 600 mg PO ONCE Qty: 4 0RF rosuvastatin [Crestor] 20 mg tablet 20 mg PO DAILY Qty: 90 3RF pregabalin 50 mg capsule 50 mg PO BID Qty: 60 2RF Medical Decision Making 1111 --86-year-old female with multiple medical problems, history of dementia, atrial fibrillation, diabetes, coronary disease status post stenting, here with chest pain started this morning and now resolved after nitroglycerin sublingual x1 and aspirin. Concern for ACS. EKG was reviewed and interpreted by me: Normal sinus rhythm 79 bpm, Q waves noted inferiorly, no STEMI. Plan to check troponin and trend. -- Initial troponin negative. Patient observed and did not have any recurrent chest pain nor arrhythmia. A repeat delta troponin was negative. Chest x-ray was obtained and reviewed and interpreted by radiology: IMPRESSION: There is asymmetric right hemidiaphragm elevation present with no interval lobar consolidation or cardiac decompensation appreciated.No significant change of parenchymal aeration is appreciated. 1508 -- Plan to hospitalize for further cardiac observation and trending troponin. I called and spoke with hospitalist on-call, Dr. Perez, discussed ED presentation course, she will accept the patient admission. Lab Data Lab results reviewed: Yes I reviewed the patient's lab results. Labs: Laboratory Tests Range/Units 02/08/22 02/08/22 02/08/22 10:48 10:48 10:48 WBC (4.4-10.8) 10^3/uL 7.71 RBC (3.93-5.22) 10^6/uL 4.48 Hgb (11.2-15.7) g/dL 13.0 Hct (36.0-46.0) % 39.4 MCV (80-95) fL 88 MCH (27.0-33.0) pg 29.0 MCHC (32.0-36.0) % 33.0 RDW (11.7-14.6) % 13.2 Plt Count (130-400) 10^3/uL 173 MPV (8.0-11.0) fL 9.9 Immature Gran % 0.3 Neutrophils % 72.0 Lymphocytes % 17.4 Monocytes % 7.8 Eosinophils % 1.9 Basophils % 0.6 Nucleated RBC % (0.0-0.3) % 0.0 Absolute Neutrophils (1.2-6.7) 10^3/uL 5.55 Absolute Lymphocytes (1.2-3.4) 10^3/uL 1.34 Absolute Monocytes (0.1-0.8) 10^3/uL 0.60 Absolute Eosinophils (0.0-0.7) 10^3/uL 0.15 Absolute Basophils (0.0-0.2) 10^3/uL 0.05 PT (9.3-11.0) sec 10.4 INR (0.9-1.1) 1.0 APTT (21.0-27.5) sec 22.2 Sodium (136-145) mmol/L 142 Potassium (3.5-5.1) mmol/L 4.0 Chloride (98-107) mmol/L 103 Carbon Dioxide (21.0-32.0) mmol/L 30.6 Anion Gap (3-11) mmol/L 8.4 BUN (7-18) mg/dL 12 Creatinine (0.55-1.02) mg/dL 1.2 H Est GFR (CKD-EPI 2020) (mL/min/1.73m2) 44.36 Glucose (74-106) mg/dL 89 Calcium (8.5-10.1) mg/dL 9.2 Magnesium (1.8-2.4) mg/dL 1.7 L Total Bilirubin (0.2-1.0) mg/dL 0.8 AST (15-37) U/L 27 ALT (14-59) U/L 19 Alkaline Phosphatase (46-116) U/L 132 H Troponin I (<or=60) ng/L < 50 NT-Pro-B Natriuret Pep (<300) pg/mL Total Protein (6.4-8.2) g/dL 7.9 Albumin (3.4-5.0) g/dL 3.6 Range/Units 02/08/22 02/08/22 10:48 13:10 WBC (4.4-10.8) 10^3/uL RBC (3.93-5.22) 10^6/uL Hgb (11.2-15.7) g/dL Hct (36.0-46.0) % MCV (80-95) fL MCH (27.0-33.0) pg MCHC (32.0-36.0) % RDW (11.7-14.6) % Plt Count (130-400) 10^3/uL MPV (8.0-11.0) fL Immature Gran % Neutrophils % Lymphocytes % Monocytes % Eosinophils % Basophils % Nucleated RBC % (0.0-0.3) % Absolute Neutrophils (1.2-6.7) 10^3/uL Absolute Lymphocytes (1.2-3.4) 10^3/uL Absolute Monocytes (0.1-0.8) 10^3/uL Absolute Eosinophils (0.0-0.7) 10^3/uL Absolute Basophils (0.0-0.2) 10^3/uL PT (9.3-11.0) sec INR (0.9-1.1) APTT (21.0-27.5) sec Sodium (136-145) mmol/L Potassium (3.5-5.1) mmol/L Chloride (98-107) mmol/L Carbon Dioxide (21.0-32.0) mmol/L Anion Gap (3-11) mmol/L BUN (7-18) mg/dL Creatinine (0.55-1.02) mg/dL Est GFR (CKD-EPI 2020) (mL/min/1.73m2) Glucose (74-106) mg/dL Calcium (8.5-10.1) mg/dL Magnesium (1.8-2.4) mg/dL Total Bilirubin (0.2-1.0) mg/dL AST (15-37) U/L ALT (14-59) U/L Alkaline Phosphatase (46-116) U/L Troponin I (<or=60) ng/L < 50 NT-Pro-B Natriuret Pep (<300) pg/mL 357 H Total Protein (6.4-8.2) g/dL Albumin (3.4-5.0) g/dL HPI General Mode of arrival: EMS. Date/Time Provider Initiated Documentation: 02/08/22 10:26. Limitations to Documentation: no limitations. Information obtained by: patient. HPI Narrative: 86-year-old female with multiple medical problems including history of insulin-dependent diabetes, atrial fibrillation, coronary artery disease status post stents in the past, here with chief complaint of chest pain. Patient notes last night she was not feeling well when she went to bed. She states she felt a little lightheaded. She woke up around 6 AM this morning with chest discomfort described as heaviness across her chest and rating to her left shoulder and jaw. She had associated diaphoresis. She also notes associated tingling paresthesia in her left arm. She states symptoms are similar to when she had AR 2 times in the past. Patient took a nitro sublingual and EMS administered aspirin. She notes pain now resolved. She has no pain on my assessment. She does note some chronic dyspnea on exertion. No recent cough or fever. Related Data Home Medications Medication Instructions Recorded Confirmed diaper,brief,adult,disposable #126 ea 12/24/19 02/08/22 flash glucose sensor (FreeStyle #1 ea 12/24/19 02/08/22 Saurabh 14 Day Sensor kit) incontinence pad, liner, disp #312 ea 12/24/19 02/08/22 (Poise Pads) turmeric 400 mg capsule 400 mg PO DAILY 06/18/20 02/08/22 flash glucose scanning reader #2 ea 07/03/20 02/08/22 (FreeStyle Saurabh 14 Day [place]) nortriptyline 10 mg capsule 10 mg PO HS #90 caps 02/09/21 02/08/22 donepezil 10 mg tablet 10 mg PO QHS #90 tabs 04/20/21 02/08/22 albuterol sulfate 90 mcg/actuation 1 - 2 puff inhalation Q4H PRN ##1 05/07/21 02/08/22 aerosol inhaler (ProAir HFA) pantoprazole 40 mg tablet,delayed 40 mg PO DAILY 06/04/21 02/08/22 release insulin glargine 100 unit/mL (3 50 unit (0.5 mL) subcut BID #30 mL 06/08/21 02/08/22 mL) subcutaneous pen (Lantus Solostar U-100 Insulin) budesonide-formoterol HFA 160 2 puff inhalation BID #10.2 grams 06/09/21 02/08/22 mcg-4.5 mcg/actuation aerosol inhaler (Symbicort) guaifenesin 1,200 mg tablet, 1,200 mg PO Q12H PRN cold symptoms 06/12/21 02/08/22 extended release 12 hr (Mucinex) #30 tabs albuterol sulfate 2.5 mg/3 mL 2.5 mg (3 mL) inhalation Q4H PRN 06/17/21 02/08/22 (0.083 %) solution for nebulization shortness of breath or wheezing #180 mL ropinirole 1 mg tablet 1 mg PO QPM #90 tabs 06/23/21 02/08/22 memantine 10 mg tablet 10 mg PO BID #180 tabs 07/06/21 02/08/22 metoprolol tartrate 25 mg tablet 25 mg PO BID #180 tabs 07/14/21 02/08/22 nebulizer and compressor #1 ea 07/16/21 02/08/22 nebulizer accessories #2 ea 07/21/21 02/08/22 aspirin 81 mg tablet,delayed 81 mg PO HS #90 tabs 08/25/21 02/08/22 release nitroglycerin 0.4 mg sublingual 0.4 mg sublingual Q5 MIN PRN X3 08/31/21 02/08/22 tablet (Nitrostat) PRN chest pain #50 tabs pen needle, diabetic 32 gauge x #200 ea 08/31/21 02/08/22 5/32 (BD Ultra-Fine Mrailyn Pen Needle) clopidogrel 75 mg tablet 75 mg PO DAILY #90 tabs 09/26/21 02/08/22 isosorbide mononitrate 60 mg 60 mg PO DAILY #90 tabs 09/26/21 02/08/22 tablet,extended release 24 hr clindamycin HCl 150 mg capsule 600 mg PO ONCE dental prophylactic 10/18/21 02/08/22 #4 caps rosuvastatin 20 mg tablet (Crestor) 20 mg PO DAILY #90 tabs 10/20/21 02/08/22 pregabalin 50 mg capsule 50 mg PO BID #60 caps 12/01/21 02/08/22 Previous Rx's Medication Instructions Recorded diaper,brief,adult,disposable #126 ea 12/24/19 flash glucose sensor (FreeStyle #1 ea 12/24/19 Saurabh 14 Day Sensor kit) incontinence pad, liner, disp #312 ea 12/24/19 (Poise Pads) flash glucose scanning reader #2 ea 07/03/20 (FreeStyle Saurabh 14 Day [place]) nortriptyline 10 mg capsule 10 mg PO HS #90 caps 02/09/21 donepezil 10 mg tablet 10 mg PO QHS #90 tabs 04/20/21 albuterol sulfate 90 mcg/actuation 1 - 2 puff inhalation Q4H PRN ##1 05/07/21 aerosol inhaler (ProAir HFA) insulin glargine 100 unit/mL (3 50 unit (0.5 mL) subcut BID #30 mL 06/08/21 mL) subcutaneous pen (Lantus Solostar U-100 Insulin) budesonide-formoterol HFA 160 2 puff inhalation BID #10.2 grams 06/09/21 mcg-4.5 mcg/actuation aerosol inhaler (Symbicort) guaifenesin 1,200 mg tablet, 1,200 mg PO Q12H PRN cold symptoms 06/12/21 extended release 12 hr (Mucinex) #30 tabs albuterol sulfate 2.5 mg/3 mL 2.5 mg (3 mL) inhalation Q4H PRN 06/17/21 (0.083 %) solution for nebulization shortness of breath or wheezing #180 mL ropinirole 1 mg tablet 1 mg PO QPM #90 tabs 06/23/21 memantine 10 mg tablet 10 mg PO BID #180 tabs 07/06/21 metoprolol tartrate 25 mg tablet 25 mg PO BID #180 tabs 07/14/21 nebulizer and compressor #1 ea 07/16/21 nebulizer accessories #2 ea 07/21/21 aspirin 81 mg tablet,delayed 81 mg PO HS #90 tabs 08/25/21 release nitroglycerin 0.4 mg sublingual 0.4 mg sublingual Q5 MIN PRN X3 08/31/21 tablet (Nitrostat) PRN chest pain #50 tabs pen needle, diabetic 32 gauge x #200 ea 08/31/21 (BD Ultra-Fine Marilyn Pen Needle) clopidogrel 75 mg tablet 75 mg PO DAILY #90 tabs 09/26/21 isosorbide mononitrate 60 mg 60 mg PO DAILY #90 tabs 09/26/21 tablet,extended release 24 hr clindamycin HCl 150 mg capsule 600 mg PO ONCE dental prophylactic 10/18/21 #4 caps rosuvastatin 20 mg tablet (Crestor) 20 mg PO DAILY #90 tabs 10/20/21 pregabalin 50 mg capsule 50 mg PO BID #60 caps 12/01/21 Allergies Allergy/AdvReac Type Severity Reaction Status Date / Time Penicillins Allergy Severe skin rash Verified 02/08/22 10:34 atorvastatin AdvReac Intermediate muscle Verified 02/08/22 10:34 aches metformin AdvReac Intermediate Diarrhea Verified 02/08/22 10:34 oxybutynin AdvReac Intermediate makes Verified 02/08/22 10:34 memory worse General Stated Complaint: Chest Pain RAFAELA: 2 Review of Systems All systems reviewed & are unremarkable except as noted in HPI and below Constitutional Constitutional: Denies fever(s) Cardiovascular Cardiovascular: Reports chest pain and Reports lightheadedness PFSH All Active Problems (Updated 02/08/22 @ 15:10 by Jah Peterson MD) Chest pain (Acute) Weight gain (Acute) CAD (coronary artery disease) (Chronic) History of non-ST elevation myocardial infarction (NSTEMI) (Acute) NSTEMI (non-ST elevated myocardial infarction) (Acute) SARS-CoV-2 positive (Acute ~08/07/21) Asthma (Chronic) Uncontrolled diabetes mellitus (Chronic) Non-proliferative diabetic retinopathy, mild, right eye (Acute) Obesity (BMI 30.0-34.9) (Chronic) Heart murmur (Acute) Diabetes mellitus with neuropathy (Acute) goal 7.5; insulin begun 07/2016 Alzheimer's dementia without behavioral disturbance (Chronic) DNI (do not intubate) (Acute) DNR (do not resuscitate) (Acute) POLST (Physician Orders for Life-Sustaining Treatment) (Acute) Cough in adult (Chronic) Goals of care, counseling/discussion (Acute) Palliative care patient (Acute) Mediastinal lymphadenopathy (Acute) 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 Pylori Status post total knee replacement, right (Acute) DOS: 06/26/2018 Dr. Turner Esophagitis (Acute 12/13/16) Dehydration (Acute) Transient global amnesia (Acute) HEAD (dyspnea on exertion) (Acute) Chest pain at rest (Acute) Status post total knee replacement (Acute) ASCVD (arteriosclerotic cardiovascular disease) (Acute) Cardiloogy Stefan Munguia Carpal tunnel syndrome on right (Acute) s/p ECTR DOS: 03/04/20 Derangement of left acromioclavicular joint (Acute) Obesity (Chronic) Tendonitis of left rotator cuff (Acute) Colitis (Acute) resolved. Primary osteoarthritis of right knee (Chronic) Tinnitus of both ears (Acute 09/26/14) Skin lesion of left ear (Acute 10/31/15) Sensorineural hearing loss, bilateral (Acute 09/13/13) Sciatica (Acute 02/19/11) Primary osteoarthritis involving multiple joints (Acute 10/30/14) Diverticulitis of colon (Acute 02/19/11) RECURRENT Diabetic neuropathy (Chronic 01/24/14) peripheral neuropathy Medical History JEMIMA (acute kidney injury) Alzheimer's dementia Angina at rest (02/19/11) very rare, follow with Dr. Fiore Atherosclerosis of [place] coronary artery of [place] heart with angina pectoris UNSTABLE ANGINA, CATH 01/2011 JOHN to OM1 EF 65%. MPI 06/10/11 no ischemia, sm septal defect, nl EF Chest pain (04/28/14) Chronic kidney disease, stage III (moderate) Edema (09/05/15) nl EF, proably venous Essential hypertension (07/27/12) goal 140/90 Fibromyalgia (12/18/14) Dx 12/[address] Kraft Rheum [facility] Gastritis, chronic (12/13/16) with gastric polyps. (12/13/16 report of operation). NC GERD (gastroesophageal reflux disease) H/O diverticulitis of colon Hearing loss of both ears History of rheumatic fever Hyperlipidemia (02/19/11) LDL baseline 127 intol ator, simv 20mg Hypertension Loss of equilibrium Mild obstructive sleep apnea (06/29/20) Old myocardial infarction 1999 RANDEE (obstructive sleep apnea) Osteopenia (02/19/11) T -1.6 Osteoporosis Pneumonia Positive cardiac stress test (06/30/17) has sched cardiac cath 07/[address] Arnett. Pulmonary edema Rectal bleed Sciatica Syncope (05/15/14) neg w/u Type 2 diabetes mellitus Urinary incontinence (06/05/14) Sacral stimulator: Dr Stokes in [facility] Surgical History Colonoscopy - MAC (12/13/16) Coronary Stent (07/12/17) [facility]. Kenyon Arnett MD report date . procedures: coronary angiography,left heart catherization,coronary stent insertion. x2 EGD - MAC (12/13/16) Postsurgical percutaneous transluminal coronary angioplasty status 2008 S/P right knee arthroscopy Dr. Galloway >10 years Status post implantation of urinary electronic stimulator device Tonsillectomy Family History Father , AR Heart disease Hypertension Sister , age 76 Stomach cancer Colon cancer Mother , at age 102 Hypertension Heart disease Paternal Grandfather Stroke Niece No problems noted. Social History Smoking/Tobacco Use Status: Former Tobacco Use Quit Date: 02/15/68 Tobacco: How many years used: 18 Second Hand Exposure: No Smoking risk assessment performed?: Yes Alcohol Intake: current Alcohol Intake frequency: holidays/special occasions only Alcohol type: wine Drug use: Never Substance use type: does not use Adopted: No Caregiver/Support person: Yes Foster care: No Household members: friend(s) Housing: house Number of Children: 0 Communication Needs: Hard of Hearing and Corrective Lenses Education Level: high school Do you need help understanding health information?: Always current occupation: retired Pets and animals: Yes Pets and animals: cat(s) Sexually active: No Do you think of yourself as: straight/heterosexual Current gender identity: female What is your relationship status?: living with partner How often do you get together with friends or relatives?: once per week Do you belong to any clubs or organized social groups?: yes Panel score (0-1 are the most socially isolated patients): 2 What type of physical activity do you participate in: walking and sedentary lifestyle Duration: 15-30 minutes/day Frequency: 1-2 times per week Shannan/Hindu: Mormon Special shannan needs: No Seatbelt use: always Drive intox or ride w/intox package delivery driver: No Working smoke detector in home: Yes Fire extinguisher in home: Yes Carbon monox detector in home: Yes Do you feel safe at home: Yes Do you feel safe in your relationship?: Yes Additional Social history: Sonia has lived with her partner, Jessenia, for more than 60 years. They met at the [facility] in [place], [place]. Jessenia is from [place]. They retired here, not sure when a long time ago. 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 Pleasant. Worked on paperwork at 03/24/21 visit: Jessenia is health care agent; Sonia chose DNR/DNI but with limited interventions included IVF and antibiotics. Exam Const General: cooperative and no acute distress HENMT Mouth: moist mucous membranes Eyes Conjunctivae: normal conjunctivae Sclera: normal sclerae Neck Neck: trachea midline and supple Resp Auscultation: clear to auscultation bilaterally, no rales, no rhonchi and no wheezes Cardio Rate: regular rate and not tachycardic Rhythm: regular rhythm Heart Sounds: murmur systolic III/ GI Palpation: soft, not firm, no guarding, no masses, not rigid and nontender Skin General skin exam: no rashes or lesions noted Neuro General: patient alert, patient awake and tone normal Extrem General: no calf tenderness and no edema Psych Appearance: grossly normal Mental Status: mental status grossly normal Course Vital Signs Vital signs: Vital Signs Temperature 36.3 C L 02/08/22 10:27 Pulse 87 02/08/22 10:27 Respiratory Rate 16 02/08/22 10:27 Blood Pressure 168/82 H 02/08/22 10:27 Temperature 36.3 C L 02/08/22 10:27 Temperature Source Skin 02/08/22 10:27 Pulse 87 02/08/22 10:27 Respiratory Rate 16 02/08/22 10:27 Respiratory Effort 02/08/22 10:33 Blood Pressure 168/82 H 02/08/22 10:27 Blood Pressure Position Sitting 02/08/22 10:27 Oxygen Delivery Method Room Air 02/08/22 10:27 Oxygen Flow Rate 0 02/08/22 10:27 Pain Level 7 02/08/22 10:27
[2022-02-08 11:19] LABS: ALT 19 U/L (14-59); AST 27 U/L (15-37); Albumin 3.6 g/dL (3.4-5.0); Alkaline Phosphatase 132 U/L (46-116); Anion Gap 8.4 mmol/L (3-11); BUN 12 mg/dL (7-18); Bilirubin, Total 0.8 mg/dL (0.2-1.0); CO2 30.6 mmol/L (21.0-32.0); CREATININE 1.2 mg/dL (0.55-1.02); Calcium 9.2 mg/dL (8.5-10.1); Chloride 103 mmol/L (98-107); Estimated GFR 44.36 (mL/min/1.73m2); Glucose 89 mg/dL (74-106); Magnesium 1.7 mg/dL (1.8-2.4); Sodium 142 mmol/L (136-145); Total Protein 7.9 g/dL (6.4-8.2); Troponin I < 50 ng/L (<or=60)
[2022-02-08 11:20] LABS: PTT Activated 22.2 sec (21.0-27.5); Prothrombin Time 10.4 sec (9.3-11.0)
[2022-02-08 11:43] LABS: NT-proBNP 357 pg/mL (<300)
[2022-02-08 13:34] LABS: Troponin I < 50 ng/L (<or=60)
--- NOTE | 2022-02-08 14:26 | DI.VRAD_ITS ---
PROCEDURE INFORMATION: Exam: XR Chest Exam date and time: 02/08/2022 1:32 PM Age: 86 years old Clinical indication: Cough and shortness of breath TECHNIQUE: Imaging protocol: Radiologic exam of the chest. 2image(s) are provided. Views: 2 views. COMPARISON: CR XR PORTABLE CHEST AP 08/27/2021 1:59 PM FINDINGS: Lungs: There is linear subsegmental atelectasis versus post inflammatory scarring demonstrated.No lobar consolidation is appreciated. Pleural spaces: No pneumothorax or pleural effusion is appreciated. Heart/Mediastinum: The cardiomediastinal silhouette is upper normal. No cardiac decompensation is appreciated. Diaphragm: There is slight asymmetric right hemidiaphragm elevation. Bones/joints: No fracture or dislocation is appreciated. Soft tissues: No radiopaque foreign body or subcutaneous emphysema is appreciated. Other findings: No significant interval changes are appreciated. IMPRESSION: There is asymmetric right hemidiaphragm elevation present with no interval lobar consolidation or cardiac decompensation appreciated.No significant change of parenchymal aeration is appreciated. Dictated and Authenticated by: Slava Sterling MD. Ordering:IVÁN Tyson MD
--- NOTE | 2022-02-08 15:43 | HPE_ITS ---
Date of service: 02/08/22 Time of Service: 15:43 Assessment and Plan Assessment and plan (1) Chest pain: Assessment and plan: Patient is currently on medical therapy; she had a similar episode in August this year, although had positive troponins and was transferred to [facility] for cardiac cath; no stent - LAD 80% occluded Maximize medical therapy, will inquire regarding her wish for interventions other than medical therapy. Continue home Isosorbide; consider increasing dose - will wait for cardiology consult for recommendation Continue Plavix and aspirin Nitroglycerin SL PRN chest pain Troponin x 2 - negative; will check 3rd troponin Echo ordered Telemetry - monitor cardiac rhythm Oxygen keep SPO2 > 92% NPO after midnight - possible cath - no MPI ordered s/t positive cardiac cath in August this year (2) Atherosclerosis of [place] coronary artery of [place] heart with angina pectoris: Assessment and plan: See above (3) Uncontrolled diabetes mellitus: Status: Chronic Assessment and plan: Poor control, A1C 11/05 - 8.3 While hospitalized will cover with short acting insulin mealtime coverage on sliding scale. natural resources extension educator consult (4) Obesity (BMI 30.0-34.9): Status: Chronic Assessment and plan: Secondary lifestyle and poor control diabetes, CAD - BMI 34.5 Heart healthy and diabetic diet; encourage weight loss; with lifestyle doubt she will lose weight Nutrition consult/natural resources extension educator consult (5) Alzheimer's dementia without behavioral disturbance: Status: Chronic Assessment and plan: Continue outpatient medical therapy Observe for behavioral abnormalities Stable Aricept and Namenda. She has full-time caregiver. Established patient of Palliative Care, consult done. Per exam today, appeared to be able to make her own medical decisions. (6) History of non-ST elevation myocardial infarction (NSTEMI): Status: Resolved Assessment and plan: NSTEMI this past August, - she went to [facility] for cath; no stents; cath results LAD 80% occluded - no stent; med mgt Discuss if she wants intervention or if a candidate with narrowing LAD - recommendation from cath was med mgt - cardiology consult TSH 3.3 - 09/04 -will recheck As above (7) Asthma: Status: Chronic Assessment and plan: Stable - continue home medications Budesonide/formoterol fumarate; Levalbuterol inhaler prn (q6h) Monitor respiratory status (8) Diabetic neuropathy: Status: Chronic Assessment and plan: Stable - Continue Lyrica Assess pain; consider adding pain med (9) Hyperlipidemia: Assessment and plan: Stable Continue Rosuvastatin (10) Essential hypertension: Assessment and plan: Stable - continue home metoprolol Monitor (11) DVT prophylaxis: Status: Acute Assessment and plan: Enoxaparin 40 mg daily (12) Discharge planning issues: Status: Acute Assessment and plan: Home when stable- has fulltime caregivers v. transfer for cardiac cath - will await cardiology recommendations Discussed with Dr Perez History of Present Illness History of Present Illness Chief Complaint: Chest pain Narrative: This is an 86-year-old female patient with multiple medical problems including history of insulin-dependent diabetes, atrial fibrillation not on anticoagulation, coronary artery disease status post stents in the past, on THOMAS, here with chief complaint of chest pain.? Patient noted last night she was not feeling well when she went to bed.? She stated she felt a little lightheaded.? She woke up around 6 AM this morning with chest discomfort described as heaviness across her chest and radiating to her left shoulder and jaw.? She had associated diaphoresis.? She also noted associated tingling paresthesia in her left arm.? She stated symptoms are similar to when she had MIs 2 times in the past.? Patient took a nitro sublingual and EMS administered aspirin.? She noted pain resolved prior to arrival in the ED.? She has remained pain-free. She does note some chronic dyspnea on exertion.? No recent cough or fever. No current difficulty breathing, no NVD. Her troponins are negative. Given her history she was put on observation status with telemetry on the medical floor. Review of Systems All systems reviewed & are unremarkable except as noted in HPI and below PFSH All Active Problems (Updated 02/08/22 @ 16:41 by Vicki Patel NP) Discharge planning issues (Acute) DVT prophylaxis (Acute) Chest pain (Acute) Weight gain (Acute) CAD (coronary artery disease) (Chronic) NSTEMI (non-ST elevated myocardial infarction) (Acute) SARS-CoV-2 positive (Acute ~08/07/21) Asthma (Chronic) Uncontrolled diabetes mellitus (Chronic) Non-proliferative diabetic retinopathy, mild, right eye (Acute) Obesity (BMI 30.0-34.9) (Chronic) Heart murmur (Acute) Diabetes mellitus with neuropathy (Acute) goal 7.5; insulin begun 07/2016 Alzheimer's dementia without behavioral disturbance (Chronic) DNI (do not intubate) (Acute) DNR (do not resuscitate) (Acute) POLST (Physician Orders for Life-Sustaining Treatment) (Acute) Cough in adult (Chronic) Goals of care, counseling/discussion (Acute) Palliative care patient (Acute) Mediastinal lymphadenopathy (Acute) 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 Pylori Status post total knee replacement, right (Acute) DOS: 06/26/2018 Dr. Turner Esophagitis (Acute 12/13/16) Dehydration (Acute) Transient global amnesia (Acute) HEAD (dyspnea on exertion) (Acute) Chest pain at rest (Acute) Status post total knee replacement (Acute) ASCVD (arteriosclerotic cardiovascular disease) (Acute) Cardiloogy Stefan Munguia Carpal tunnel syndrome on right (Acute) s/p ECTR DOS: 03/04/20 Derangement of left acromioclavicular joint (Acute) Obesity (Chronic) Tendonitis of left rotator cuff (Acute) Colitis (Acute) resolved. Primary osteoarthritis of right knee (Chronic) Tinnitus of both ears (Acute 09/26/14) Skin lesion of left ear (Acute 10/31/15) Sensorineural hearing loss, bilateral (Acute 09/13/13) Sciatica (Acute 02/19/11) Primary osteoarthritis involving multiple joints (Acute 10/30/14) Diverticulitis of colon (Acute 02/19/11) RECURRENT Diabetic neuropathy (Chronic 01/24/14) peripheral neuropathy Medical History JEMIMA (acute kidney injury) Alzheimer's dementia Angina at rest (02/19/11) very rare, follow with Dr. Fiore Atherosclerosis of [place] coronary artery of [place] heart with angina pectoris UNSTABLE ANGINA, CATH 01/2011 JOHN to OM1 EF 65%. MPI 06/10/11 no ischemia, sm septal defect, nl EF Chest pain (04/28/14) Chronic kidney disease, stage III (moderate) Edema (09/05/15) nl EF, proably venous Essential hypertension (07/27/12) goal 140/90 Fibromyalgia (12/18/14) Dx 12/[address] Kraft [place] Gastritis, chronic (12/13/16) with gastric polyps. (12/13/16 report of operation). NC GERD (gastroesophageal reflux disease) H/O diverticulitis of colon Hearing loss of both ears History of rheumatic fever Hyperlipidemia (02/19/11) LDL baseline 127 intol ator, simv 20mg Hypertension Loss of equilibrium Mild obstructive sleep apnea (06/29/20) Old myocardial infarction 1999 RANDEE (obstructive sleep apnea) Osteopenia (02/19/11) T -1.6 Osteoporosis Pneumonia Positive cardiac stress test (06/30/17) has sched cardiac cath 07/[address] Arnett. Pulmonary edema Rectal bleed Sciatica Syncope (05/15/14) neg w/u Type 2 diabetes mellitus Urinary incontinence (06/05/14) Sacral stimulator: Dr Stokes in [facility] Surgical History Colonoscopy - MAC (12/13/16) Coronary St[place] (07/12/17[place] [facility] Kenyon Arnett MD report date . procedures: coronary angiography,left heart catherization,coronary stent insertion. x2 EGD - MAC (12/13/16) Postsurgical percutaneous transluminal coronary angioplasty status 2008 S/P right knee arthroscopy Dr. Galloway >10 years Status post implantation of urinary electronic stimulator device Tonsillectomy Family History Father , [place] Heart disease Hypertension Sister , age 76 Stomach cancer Colon cancer Mother , at age 102 Hypertension Heart disease Paternal Grandfather Stroke Niece No problems noted. Social History Smoking/Tobacco Use Status: Former Tobacco Use Quit Date: 02/15/68 Tobacco: How many years used: 18 Second Hand Exposure: No Smoking risk assessment performed?: Yes Alcohol Intake: current Alcohol Intake frequency: holidays/special occasions only Alcohol type: wine Drug use: Never Substance use type: does not use Adopted: No Caregiver/Support person: Yes Foster care: No Household members: friend(s) Housing: house Number of Children: 0 Communication Needs: Hard of Hearing and Corrective Lenses Education Level: high school Do you need help understanding health information?: Always current occupation: retired Pets and animals: Yes Pets and animals: cat(s) Sexually active: No Do you think of yourself as: straight/heterosexual Current gender identity: female What is your relationship status?: living with partner How often do you get together with friends or relatives?: once per week Do you belong to any clubs or organized social groups?: yes Panel score (0-1 are the most socially isolated patients): 2 What type of physical activity do you participate in: walking and sedentary lifestyle Duration: 15-30 minutes/day Frequency: 1-2 times per week Shannan/Adventism: Mu-Ism Special shannan needs: No Seatbelt use: always Drive intox or ride w/intox flag car driver: No Working smoke detector in home: Yes Fire extinguisher in home: Yes Carbon monox detector in home: Yes Do you feel safe at home: Yes Do you feel safe in your relationship?: Yes Additional Social history: Sonia has lived with her partner, Jessenia, for more than 60 years. They met at the [facility] in [place], [place]. Jessenia is from [place]. They retired here, not sure when a long time ago. 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 Pleasant. Worked on paperwork at 03/24/21 visit: Jessenia is health care agent; Sonia chose DNR/DNI but with limited interventions included IVF and antibiotics. Meds Allergies and Home Medications Allergies Allergy/AdvReac Type Severity Reaction Status Date / Time Penicillins Allergy Severe skin rash Verified 02/08/22 10:34 atorvastatin AdvReac Intermediate muscle Verified 02/08/22 10:34 aches metformin AdvReac Intermediate Diarrhea Verified 02/08/22 10:34 oxybutynin AdvReac Intermediate makes Verified 02/08/22 10:34 memory worse Home Medications Medication Instructions Recorded Confirmed Type diaper,brief,adult,disposable #126 ea 12/24/19 02/08/22 Rx flash glucose sensor (FreeStyle #1 ea 12/24/19 02/08/22 Rx Saurabh 14 Day Sensor kit) incontinence pad, liner, disp #312 ea 12/24/19 02/08/22 Rx (Poise Pads) turmeric 400 mg capsule 400 mg PO DAILY 06/18/20 02/08/22 History flash glucose scanning reader #2 ea 07/03/20 02/08/22 Rx (FreeStyle Saurabh 14 Day Cl[place]son) nortriptyline 10 mg capsule 10 mg PO HS #90 caps 02/09/21 02/08/22 Rx donepezil 10 mg tablet 10 mg PO QHS #90 tabs 04/20/21 02/08/22 Rx pantoprazole 40 mg tablet,delayed 40 mg PO DAILY 06/04/21 02/08/22 History release insulin glargine 100 unit/mL (3 50 unit (0.5 mL) subcut BID #30 mL 06/08/21 02/08/22 Rx mL) subcutaneous pen (Lantus Solostar U-100 Insulin) budesonide-formoterol HFA 160 2 puff inhalation BID #10.2 grams 06/09/21 1 04/11/21 Rx mcg-4.5 mcg/actuation aerosol inhaler (Symbicort) guaifenesin 1,200 mg tablet, 1,200 mg PO Q12H PRN cold symptoms 06/12/21 02/08/22 Rx extended release 12 hr (Mucinex) #30 tabs ropinirole 1 mg tablet 1 mg PO QPM #90 tabs 06/23/21 02/08/22 Rx memantine 10 mg tablet 10 mg PO BID #180 tabs 07/06/21 02/08/22 Rx metoprolol tartrate 25 mg tablet 25 mg PO BID #180 tabs 07/14/21 02/08/22 Rx nebulizer and compressor #1 ea 07/16/21 02/08/22 Rx nebulizer accessories #2 ea 07/21/21 02/08/22 Rx aspirin 81 mg tablet,delayed 81 mg PO HS #90 tabs 08/25/21 02/08/22 Rx release nitroglycerin 0.4 mg sublingual 0.4 mg sublingual Q5 MIN PRN X3 08/31/21 02/08/22 Rx tablet (Nitrostat) PRN chest pain #50 tabs pen needle, diabetic 32 gauge x #200 ea 08/31/21 02/08/22 Rx 5/32 (BD Ultra-Fine Marilyn Pen Needle) clopidogrel 75 mg tablet 75 mg PO DAILY #90 tabs 09/26/21 02/08/22 Rx isosorbide mononitrate 60 mg 60 mg PO DAILY #90 tabs 09/26/21 02/08/22 Rx tablet,extended release 24 hr clindamycin HCl 150 mg capsule 600 mg PO ONCE dental prophylactic 10/18/21 02/08/22 Rx #4 caps rosuvastatin 20 mg tablet (Crestor) 20 mg PO DAILY #90 tabs 10/20/21 02/08/22 Rx pregabalin 50 mg capsule 50 mg PO BID #60 caps 12/01/21 02/08/22 Rx albuterol sulfate 90 mcg/actuation 1 - 2 puff inhalation Q4H PRN PRN 02/08/22 02/08/22 History aerosol inhaler (ProAir HFA) Shortness Of Breath ascorbic acid (vitamin C) 500 mg 500 mg PO DAILY 02/08/22 02/08/22 History tablet ferrous sulfate 325 mg (65 mg 325 mg PO DAILY 02/08/22 02/08/22 History iron) tablet pumpkin seed extract-soy germ 300 1 cap PO BID 02/08/22 02/08/22 History mg capsule (Azo Bladder Control) Exam Narrative Exam Narrative: Sitting up, eating supper. States shes does not have any pain, she is CAOx4, asks why she has to stay at the hospital. Const General: cooperative and no acute distress HENNM Mouth: moist mucous membranes Eyes Conjunctivae: normal conjunctivae Sclera: normal sclerae Neck Neck: trachea midline and supple Resp Auscultation: clear to auscultation bilaterally, no rales, no rhonchi and no wheezes Cardio Rate: regular rate and not tachycardic Rhythm: regular rhythm Heart Sounds: murmur systolic III/ GI Palpation: soft, not firm, no guarding, no masses, not rigid and nontender Skin General skin exam: no rashes or lesions noted Neuro General: patient alert, patient awake and tone normal Extrem General: no calf tenderness and no edema Psych Appearance: grossly normal Mental Status: mental status grossly normal Results Labs Result diagrams: 02/08/22 10:48 02/08/22 10:48 Labs: Laboratory Results - last 24 hr 02/08/22 02/08/22 02/08/22 10:48 10:48 10:48 WBC 7.71 RBC 4.48 Hgb 13.0 Hct 39.4 MCV 88 MCH 29.0 MCHC 33.0 RDW 13.2 Plt Count 173 MPV 9.9 Immature Gran % 0.3 Neutrophils % 72.0 Lymphocytes % 17.4 Monocytes % 7.8 Eosinophils % 1.9 Basophils % 0.6 Nucleated RBC % 0.0 Absolute Neutrophils 5.55 Absolute Lymphocytes 1.34 Absolute Monocytes 0.60 Absolute Eosinophils 0.15 Absolute Basophils 0.05 PT 10.4 INR 1.0 APTT 22.2 Sodium 142 Potassium 4.0 Chloride 103 Carbon Dioxide 30.6 Anion Gap 8.4 BUN 12 Creatinine 1.2 H Est GFR (CKD-EPI 2020) 44.36 Glucose 89 Calcium 9.2 Magnesium 1.7 L Total Bilirubin 0.8 AST 27 ALT 19 Alkaline Phosphatase 132 H Troponin I < 50 NT-Pro-B Natriuret Pep Total Protein 7.9 Albumin 3.6 02/08/22 02/08/22 10:48 13:10 WBC RBC Hgb Hct MCV MCH MCHC RDW Plt Count MPV Immature Gran % Neutrophils % Lymphocytes % Monocytes % Eosinophils % Basophils % Nucleated RBC % Absolute Neutrophils Absolute Lymphocytes Absolute Monocytes Absolute Eosinophils Absolute Basophils PT INR APTT Sodium Potassium Chloride Carbon Dioxide Anion Gap BUN Creatinine Est GFR (CKD-EPI 2020) Glucose Calcium Magnesium Total Bilirubin AST ALT Alkaline Phosphatase Troponin I < 50 NT-Pro-B Natriuret Pep 357 H Total Protein Albumin Last Vital Signs Temp 36.3 C L 02/08/22 10:27 Pulse 86 02/08/22 13:46 Resp 13 02/08/22 15:30 BP 154/84 H 02/08/22 15:39 Pulse Ox 93 02/08/22 15:30
[2022-02-08 16:01] LABS: Source Nasal/Nares
[2022-02-08 16:37] LABS: COVID-19 PCR Negative (Negative)
[2022-02-08] MEDS: Enoxaparin 40 MG/0.4 ML SYR SC (18:30)
--- NOTE | 2022-02-08 19:01 | TELEP.MEDR_ITS ---
Date of service: 02/08/22 Time of Service: 19:01 Telepharmacy Home Med Rec Allergies Allergies: Penicillins Allergy (Severe, Verified 02/08/22 10:34) skin rash atorvastatin Adverse Reaction (Intermediate, Verified 02/08/22 10:34) muscle aches metformin Adverse Reaction (Intermediate, Verified 02/08/22 10:34) Diarrhea oxybutynin Adverse Reaction (Intermediate, Verified 02/08/22 10:34) makes memory worse Interview Person Interviewed: Initially pt, information completed and verified with friend Maureen Hernandez Quality Quality of Interview/Accuracy of Medication List: Good Sources Sources used to compile medication list: [place] Medication List and Patient List Changes made to Home Medication List: ADDITIONS: Ascorbic acid 500 mg po qday AZO Bladder Control 1 cap po bid Ferrous sulfate 325 mg po qday DELETIONS: Albuterol (nebulized) Additional Notes Additional Notes: Initially spoke with pt before seeing that she has dementia. Pt reported that she doesn't take much of anything anymore, reported that she takes ASA, guaifenesin, and turmeric sporadically. Called pt's friend to verify accuracy of pt's report, friend states that pt still takes almost all regular meds every day. Unsure of last time pt needed NTG. Unsure of last time pt used Symbicort inhaler (friend reported at least a week). Concern that pt's dementia may no longer be controlled well enough by donepezil and memantine. Pt uses guaifenesin as a maintenance drug, not prn. Recommended Changes Recommended Changes(reason for recommendation): Re-evaluate pt's dementia-related medicines. Room to increase both donepezil and memantine dosages if benefit to pt and friend (who acts as caregiver) outweighs potential for new or increased adverse effects. Attestation: The home medication list is now updated to the best of my knowledge and is ready to be reconciled by the provider. Please contact the TelePharmacy Medication Reconciliation Pharmacist at for any questions.
[2022-02-08] MEDS: Pregabalin 50 MG CAP PO (19:51)
[2022-02-08] MEDS: rOPINIRole 1 MG TAB PO (19:51)
[2022-02-08] MEDS: Memantine 5 MG TAB 10 MG PO (19:52)
[2022-02-08] MEDS: Metoprolol 25 MG TAB PO (19:52)
[2022-02-08] MEDS: Normal Saline Flush 10 ML SYR IVP (19:52)
[2022-02-08] MEDS: Budesonide/Formoterol 160/4.5 6 GM 60 PUFF INH IH (20:12)
[2022-02-08 20:44] LABS: Troponin I < 50 ng/L (<or=60)
[2022-02-08 20:48] LABS: TSH 3.06 uIU/mL (0.36-3.74)
[2022-02-08] MEDS: Insulin Glargine 300 UNITS/3 ML PEN 50 UNITS SC (21:50)
[2022-02-08] MEDS: Donepezil 5 MG TAB 10 MG PO (21:51)
[2022-02-08] MEDS: Nortriptyline 10 MG CAP PO (21:52)
[2022-02-08] MEDS: Aspirin E.C. 81 MG TABEC PO (21:52)
[2022-02-09] VITALS: PULSE 75
[2022-02-09 03:05] VITALS: BP 139/82; PULSE 71; RESP 17; TEMP 36.1; O2SAT 96
[2022-02-09 07:00] VITALS: PULSE 81
[2022-02-09 07:37] VITALS: BP 171/78; PULSE 69; RESP 19; TEMP 36.2; O2SAT 93
[2022-02-09 07:59] LABS: Abs Immature Grans 0.01 10^3/uL (0.0-0.06); Absolute Basophil Count 0.04 10^3/uL (0.0-0.2); Absolute Eosinophil Count 0.15 10^3/uL (0.0-0.7); Absolute Lymphocyte Count 1.49 10^3/uL (1.2-3.4); Absolute Monocyte Count 0.62 10^3/uL (0.1-0.8); Absolute Neutrophil Count 3.26 10^3/uL (1.2-6.7); Basophils % 0.7; Eosinophils % 2.7; HCT 38.2 % (36.0-46.0); HGB 12.5 g/dL (11.2-15.7); Immature Grans % 0.2; Lymphocytes % 26.8; MCH 28.8 pg (27.0-33.0); MCHC 32.7 % (32.0-36.0); MCV 88 fL (80-95); MPV 10.5 fL (8.0-11.0); Monocytes % 11.1; Neutrophils % 58.5; Platelet Count 175 10^3/uL (130-400); RBC 4.34 10^6/uL (3.93-5.22); RDW 13.3 % (11.7-14.6); RDW-SD 43.8 fL; WBC 5.57 10^3/uL (4.4-10.8)
[2022-02-09] MEDS: Budesonide/Formoterol 160/4.5 6 GM 60 PUFF INH IH (08:00)
--- NOTE | 2022-02-09 08:00 | DI.US_ITS ---
APPROVED REPORT EXAM: Comprehensive 2D, Doppler, and color-flow Echocardiogram Patient Location: In-Patient Room/Bed: 210 Fructose Loader: Ashlee Giordano RDCS (AE) Indications: Chest pain Other Information Study Quality: Adequate Conclusion Normal left ventricular wall thickness and chamber size. Estimated ejection fraction is 55 to 60%. There are no segmental wall motion abnormalities Right ventricle is grossly normal in size and systolic function Both atria are normal in size The aortic valve is calcified and trileaflet. There is mild aortic stenosis. The peak gradient is 3 0, mean 17 mmHg. Calculated mitral valve area is 1.8 cm??. There is mild aortic regurgitation Mitral annular calcification. Mild mitral regurgitation Wall motion Left Ventricle The left ventricle is normal size. The left ventricular systolic function is normal. The left ventric ular ejection fraction is within the normal range. There is normal left ventricular wall thickness. T here is normal LV segmental wall motion. There is no ventricular septal defect visualized. LVEF is 57 %. Right Ventricle Right ventricle is grossly normal in size. Right ventricular systolic function is grossly normal. Atria The left atrium size is normal. The right atrium size is normal. The interatrial septum is intact wit h no evidence for an atrial septal defect. Aortic Valve Aortic valve is calcified. Aortic valve is trileaflet. Mild aortic stenosis. Peak aortic valve gradie nt is 30.5mmHg. Highest mean aortic valve gradient is 16.8mmHg. Calculated GABBI by the continuity equa tion is 1.8cm2. Mild aortic regurgitation. Mitral Valve Moderate mitral annular calcification. No evidence of mitral valve stenosis. Mild mitral regurgitatio n. Tricuspid Valve The tricuspid valve is normal in structure. There is no tricuspid valve stenosis. Trace tricuspid reg urgitation. Pulmonic Valve The pulmonary valve is normal in structure. There is no pulmonic valvular stenosis. There is no pulmo fritz valvular regurgitation. Great Vessels The aortic root is normal in size. The ascending aorta is normal in size. Aortic arch is normal in ca liber. IVC is normal in size and collapses >50% with inspiration. Pericardium There is no pericardial effusion. 2D Dimensions IVSD d PLAX 0.73 cm F: 0.6-1.0 LV Vol A2C d MOD 84.5 mL LVPW d PLAX 0.76 cm F: 0.6 - 1.0 LV Vol A4C d MOD 88.2 mL LVID d PLAX 4.51 cm F: 3.8 - 5.2 LA vol/ BSA A2C s A-L 29.2 mL/m2 LVDs 3.20 cm F: 2.2 - 3.5 LA vol/ BSA A4C s A-L 36.2 mL/m2 Ao Root d 2.54 cm F: 2.7 - 3.3 LA Vol/ BSA Biplane s A-L 33.1 mL/m2 Ao Asc Diam d 2.72 cm F: 2.3 - 3.1 LA Area A4C s MOD 22.42 cm2 LV EF Teichholz 54.8 % LA Area A2C s MOD 19.74 cm2 LVEF (Campbell's) 56.88 % F: 54 - 74 LV EF A4C MOD 57.6 % LV Volume 66.30 mL F: 46 - 106 LV EF A2C MOD 55.3 % LV Volume Index 33.15 mL/m2 F: 29 - 61 LV EF Biplane MOD 56.9 % LV Vol Biplane MOD 88.4 mL SV 50.26 mL FS 28.25 % SV Index 25.17 mL/m2 M-Mode TAPSE 2.44 cm (M/F) >1.7 LV Diastology MV E' medial 0.106 (>0.07 m/s) E/A Ratio 0.9 LV E/e MED 12.55 (<14) MV E Vmax 1.33 (0.4-1.3 m/s) MV E' lateral 0.088 (>0.1 m/s) MV A Vmax 1.55 (0.4-1.3 m/s) LV E/e LAT 15.10 (<14) MV E/A Ratio 0.84 MV E/E' medial 12.57 MV E/E' lateral 15.13 Aortic Valve LVOT Area 3.00 cm2 AoV Area Vmax 1.84 cm2 LVOT Vmax 1.69 m/s AoV Area/ BSA (Vmax) 0.92 cm2/m2 LVOT Mean Fady. 1.13 m/s GABBI Mean Fady. 1.75 cm2 LVOT Peak Grad 11.4 mmHg GABBI Mean Fady. Index 0.88 cm2/m2 LVOT Mean Grad 6.0 mmHg AR DT 2155 msec LVOT VTI 0.379 m AR PHT 625 msec LVOT Diam s 1.95 cm AoV Vmax 2.76 m/s Velocity Ratio 0.61 AoV Mean Fady. 1.94 m/s AoV Peak Grad 30.5 mmHg LVOT SV 113.75 mL AoV Mean Grad 16.8 mmHg AoV VTI 0.614 m AoV Area VTI 1.85 cm2 AoV Area/ BSA (VTI) 0.93 cm/m2 Mitral Valve MV DT 271 (160-240 msec) MV PHT 79 msec MV Area PHT 2.80 cm2 MV VTI 0.485 m MV Area VTI 2.35 (4.0-6.0 cm2) Pulmonary Valve PV Vmax 1.13 (0.5-1.5 m/s) RVOT Peak Gr. 2.03 mmHg PV Peak Grad 5.1 mmHg RVOT Mean Gr. 1.05 mmHg PV Mean Grad 3.2 mmHg RVOT VTI 0.157 m PV VTI 0.237 m RVOT Vmax 0.71 m/s
[2022-02-09 08:17] LABS: Anion Gap 7.5 mmol/L (3-11); BUN 13 mg/dL (7-18); CO2 28.5 mmol/L (21.0-32.0); CREATININE 1.1 mg/dL (0.55-1.02); Calcium 8.8 mg/dL (8.5-10.1); Chloride 106 mmol/L (98-107); Estimated GFR 49.24 (mL/min/1.73m2); Glucose 80 mg/dL (74-106); Magnesium 1.8 mg/dL (1.8-2.4); Potassium 3.6 mmol/L (3.5-5.1); Sodium 142 mmol/L (136-145)
--- NOTE | 2022-02-09 08:31 | CCONE_ITS ---
Date of service: 02/09/22 Time of Service: 08:31 Assessment and Plan Assessment and plan (1) CAD (coronary artery disease): Status: Chronic Assessment and plan: Patient has known coronary artery disease. Her last cardiac catheterization she had a small diffusely diseased left anterior descending that was not amenable to either percutaneous or surgical intervention. Medical therapy was recommended. Patient had what sounds like an episode of angina which was relieved with sublingual nitroglycerin. There is no evidence of any myocardial necrosis. Her EKG showed no changes. She is not currently experiencing any symptoms. She is followed by Dr. Munguia in [place] and her next appointment is at the end of February Her echocardiogram may be informational but I do not think we will change any management to which is recommended continued medical therapy, no indication for any type of ischemic evaluation such as myocardial perfusion imaging or repeat cardiac catheterization. If the patient is able to be normally active in her hospital room without symptoms I think she could be discharged to outpatient follow-up History of Present Illness History of Present Illness Chief Complaint: Reportedly chest pain Narrative: This is 1 of several admissions for this 86-year-old woman who reportedly came to the hospital because of feeling poorly and unspecified chest pain. The symptoms were recorded by the emergency room physician. The patient's chest pain was relieved with nitroglycerin. In the emergency room there were no acute electrocardiographic changes and her troponin was negative. She has been admitted to the hospital. She is on her way to an echocardiogram. She is not able to tell me why she is in the hospital. She is anxious to go home where she lives with her cat Gus Patient has known coronary artery disease. In August she was hospitalized with a non-ST elevation myocardial infarction and was transferred to [facility] in [facility] where she underwent cardiac catheterization. This disclosed a small and diffusely diseased left anterior descending coronary artery with sequential 80 and 70% stenoses. There were no targets for percutaneous intervention or bypass surgery and medical therapy was recommended. Imdur was added at that time and she was prescribed dual antiplatelet therapy EKG here shows sinus rhythm possible old inferior wall myocardial infarction, no acute changes. Troponins remain negative Review of Systems Narrative: Unreliable due to patient's baseline mental status of dementia [facility] All Active Problems Discharge planning issues (Acute) DVT prophylaxis (Acute) Chest pain (Acute) Weight gain (Acute) CAD (coronary artery disease) (Chronic) NSTEMI (non-ST elevated myocardial infarction) (Acute) SARS-CoV-2 positive (Acute ~08/07/21) Asthma (Chronic) Uncontrolled diabetes mellitus (Chronic) Non-proliferative diabetic retinopathy, mild, right eye (Acute) Obesity (BMI 30.0-34.9) (Chronic) Heart murmur (Acute) Diabetes mellitus with neuropathy (Acute) goal 7.5; insulin begun 07/2016 Alzheimer's dementia without behavioral disturbance (Chronic) DNI (do not intubate) (Acute) DNR (do not resuscitate) (Acute) POLST (Physician Orders for Life-Sustaining Treatment) (Acute) Cough in adult (Chronic) Goals of care, counseling/discussion (Acute) Palliative care patient (Acute) Mediastinal lymphadenopathy (Acute) 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 Pylori Status post total knee replacement, right (Acute) DOS: 06/26/2018 Dr. Turner Esophagitis (Acute 12/13/16) Dehydration (Acute) Transient global amnesia (Acute) HEAD (dyspnea on exertion) (Acute) Chest pain at rest (Acute) Status post total knee replacement (Acute) ASCVD (arteriosclerotic cardiovascular disease) (Acute) Cardiloogy Stefan Munguia Carpal tunnel syndrome on right (Acute) s/p ECTR DOS: 03/04/20 Derangement of left acromioclavicular joint (Acute) Obesity (Chronic) Tendonitis of left rotator cuff (Acute) Colitis (Acute) resolved. Primary osteoarthritis of right knee (Chronic) Tinnitus of both ears (Acute 09/26/14) Skin lesion of left ear (Acute 10/31/15) Sensorineural hearing loss, bilateral (Acute 09/13/13) Sciatica (Acute 02/19/11) Primary osteoarthritis involving multiple joints (Acute 10/30/14) Diverticulitis of colon (Acute 02/19/11) RECURRENT Diabetic neuropathy (Chronic 01/24/14) peripheral neuropathy Medical History JEMIMA (acute kidney injury) Alzheimer's dementia Angina at rest (02/19/11) very rare, follow with Dr. Fiore Atherosclerosis of [place] coronary artery of [place] heart with angina pectoris UNSTABLE ANGINA, CATH 01/2011 JOHN to OM1 EF 65%. MPI 06/10/11 no ischemia, sm septal defect, nl EF Chest pain (04/28/14) Chronic kidney disease, stage III (moderate) Edema (09/05/15) nl EF, proably venous Essential hypertension (07/27/12) goal 140/90 Fibromyalgia (12/18/14) Dx 12/[address] Kraft Rheum [facility] [place] Gastritis, chronic (12/13/16) with gastric polyps. (12/13/16 report of operation). NC GERD (gastroesophageal reflux disease) H/O diverticulitis of colon Hearing loss of both ears History of rheumatic fever Hyperlipidemia (02/19/11) LDL baseline 127 intol ator, simv 20mg Hypertension Loss of equilibrium Mild obstructive sleep apnea (06/29/20) Old myocardial infarction 1999 RANDEE (obstructive sleep apnea) Osteopenia (02/19/11) T -1.6 Osteoporosis Pneumonia Positive cardiac stress test (06/30/17) has sched cardiac cath 07/[address] Arnett. Pulmonary edema Rectal bleed Sciatica Syncope (05/15/14) neg w/u Type 2 diabetes mellitus Urinary incontinence (06/05/14) Sacral stimulator: Dr Stokes in [place] Surgical History Colonoscopy - MAC (12/13/16) Coronary Stent (07/12/17) [facility]. Kenyon Arnett MD report date . procedures: coronary angiography,left heart catherization,coronary stent insertion. x2 EGD - MAC (12/13/16) Postsurgical percutaneous transluminal coronary angioplasty status 2008 S/P right knee arthroscopy Dr. Galloway >10 years Status post implantation of urinary electronic stimulator device Tonsillectomy Family History Father , [place] Heart disease Hypertension Sister , age 76 Stomach cancer Colon cancer Mother , at age 102 Hypertension Heart disease Paternal Grandfather Stroke Niece No problems noted. Social History Smoking/Tobacco Use Status: Former Tobacco Use Quit Date: 02/15/68 Tobacco: How many years used: 18 Second Hand Exposure: No Smoking risk assessment performed?: Yes Alcohol Intake: current Alcohol Intake frequency: holidays/special occasions only Alcohol type: wine Drug use: Never Substance use type: does not use Adopted: No Caregiver/Support person: Yes Foster care: No Household members: friend(s) Housing: house Number of Children: 0 Communication Needs: Hard of Hearing and Corrective Lenses Education Level: high school Do you need help understanding health information?: Always current occupation: retired Pets and animals: Yes Pets and animals: cat(s) Sexually active: No Do you think of yourself as: straight/heterosexual Current gender identity: female What is your relationship status?: living with partner How often do you get together with friends or relatives?: once per week Do you belong to any clubs or organized social groups?: yes Panel score (0-1 are the most socially isolated patients): 2 What type of physical activity do you participate in: walking and sedentary lifestyle Duration: 15-30 minutes/day Frequency: 1-2 times per week Shannan/Mu-Ism: Taoism Special shannan needs: No Seatbelt use: always Drive intox or ride w/intox petroleum transport driver: No Working smoke detector in home: Yes Fire extinguisher in home: Yes Carbon monox detector in home: Yes Do you feel safe at home: Yes Do you feel safe in your relationship?: Yes Additional Social history: Sonia has lived with her partner, Jessenia, for more than 60 years. They met at the [facility] in [place], [place]. Jessenia is from [place]. They retired here, not sure when a long time ago. 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 Pleasant. Worked on paperwork at 03/24/21 visit: Jessenia is health care agent; Sonia chose DNR/DNI but with limited interventions included IVF and antibiotics. Exam Const Other: Obese looks younger than stated age no acute distress pleasant Neck Other: Unable to assess JVP carotid pulsations are normal there are no bruits Resp Auscultation: clear to auscultation bilaterally Cardio Other: Heart is regular with a 2/6 systolic ejection quality murmur Skin Other: Warm and dry Extrem Other: Trace edema Results Last Vital Signs Temp 36.2 C L 02/09/22 07:37 Pulse 69 02/09/22 07:37 Resp 19 02/09/22 07:37 BP 171/78 H 02/09/22 07:37 Pulse Ox 93 02/09/22 07:37 Labs Result diagrams: 02/09/22 06:55 02/09/22 06:55 Labs: Laboratory Results - last 24 hr 02/08/22 02/08/22 02/08/22 10:48 10:48 10:48 WBC 7.71 RBC 4.48 Hgb 13.0 Hct 39.4 MCV 88 MCH 29.0 MCHC 33.0 RDW 13.2 Plt Count 173 MPV 9.9 Immature Gran % 0.3 Neutrophils % 72.0 Lymphocytes % 17.4 Monocytes % 7.8 Eosinophils % 1.9 Basophils % 0.6 Nucleated RBC % 0.0 Absolute Neutrophils 5.55 Absolute Lymphocytes 1.34 Absolute Monocytes 0.60 Absolute Eosinophils 0.15 Absolute Basophils 0.05 PT 10.4 INR 1.0 APTT 22.2 Sodium 142 Potassium 4.0 Chloride 103 Carbon Dioxide 30.6 Anion Gap 8.4 BUN 12 Creatinine 1.2 H Est GFR (CKD-EPI 2020) 44.36 Glucose 89 Calcium 9.2 Magnesium 1.7 L Total Bilirubin 0.8 AST 27 ALT 19 Alkaline Phosphatase 132 H Troponin I < 50 NT-Pro-B Natriuret Pep Total Protein 7.9 Albumin 3.6 TSH COVID-19 Source SARS-CoV-2 (PCR) 02/08/22 02/08/22 02/08/22 10:48 13:10 15:56 WBC RBC Hgb Hct MCV MCH MCHC RDW Plt Count MPV Immature Gran % Neutrophils % Lymphocytes % Monocytes % Eosinophils % Basophils % Nucleated RBC % Absolute Neutrophils Absolute Lymphocytes Absolute Monocytes Absolute Eosinophils Absolute Basophils PT INR APTT Sodium Potassium Chloride Carbon Dioxide Anion Gap BUN Creatinine Est GFR (CKD-EPI 2020) Glucose Calcium Magnesium Total Bilirubin AST ALT Alkaline Phosphatase Troponin I < 50 NT-Pro-B Natriuret Pep 357 H Total Protein Albumin TSH COVID-19 Source Nasal/Nares SARS-CoV-2 (PCR) Negative 02/08/22 02/08/22 02/08/22 18:15 20:01 20:09 WBC RBC Hgb Hct MCV MCH MCHC RDW Plt Count MPV Immature Gran % Neutrophils % Lymphocytes % Monocytes % Eosinophils % Basophils % Nucleated RBC % Absolute Neutrophils Absolute Lymphocytes Absolute Monocytes Absolute Eosinophils Absolute Basophils PT INR APTT Sodium Potassium Chloride Carbon Dioxide Anion Gap BUN Creatinine Est GFR (CKD-EPI 2020) Glucose Calcium Magnesium Total Bilirubin AST ALT Alkaline Phosphatase Troponin I Cancelled < 50 NT-Pro-B Natriuret Pep Total Protein Albumin TSH 3.06 COVID-19 Source SARS-CoV-2 (PCR) 02/09/22 02/09/22 06:55 06:55 WBC 5.57 RBC 4.34 Hgb 12.5 Hct 38.2 MCV 88 MCH 28.8 MCHC 32.7 RDW 13.3 Plt Count 175 MPV 10.5 Immature Gran % 0.2 Neutrophils % 58.5 Lymphocytes % 26.8 Monocytes % 11.1 Eosinophils % 2.7 Basophils % 0.7 Nucleated RBC % 0.0 Absolute Neutrophils 3.26 Absolute Lymphocytes 1.49 Absolute Monocytes 0.62 Absolute Eosinophils 0.15 Absolute Basophils 0.04 PT INR APTT Sodium 142 Potassium 3.6 Chloride 106 Carbon Dioxide 28.5 Anion Gap 7.5 BUN 13 Creatinine 1.1 H Est GFR (CKD-EPI 2020) 49.24 Glucose 80 Calcium 8.8 Magnesium 1.8 Total Bilirubin AST ALT Alkaline Phosphatase Troponin I NT-Pro-B Natriuret Pep Total Protein Albumin TSH COVID-19 Source SARS-CoV-2 (PCR)
--- NOTE | 2022-02-09 09:44 | INITIAL_ITS ---
- If Service Date Differs Date of service: 02/09/22 Time of Service: 09:44 Care Management Initial Assess REASON FOR HOSPITALIZATION:: Coronary Artery PAST MEDICAL HISTORY/PAST SURGICAL HISTORY:: Medical History . JEMIMA (acute kidney injury). Alzheimer's dementia. Angina at rest (02/19/11). very rare, follow with Dr. Fiore. Atherosclerosis of [place] coronary artery of [place] heart with angina pectoris. UNSTABLE ANGINA, CATH 01/2011 JOHN to OM1 EF 65%. MPI 06/10/11 no ischemia, sm septal defect, nl EF. Chest pain (04/28/14). Chronic kidney disease, stage III (moderate). Edema (09/05/15). nl EF, proably venous. Essential hypertension (07/27/12). goal 140/90. Fibromyalgia (12/18/14). Dx 12/[address] Kraft Rheum [facility]. 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 (12/13/16 report of operation). NC. GERD (gastroesophageal reflux disease). H/O diverticulitis of colon. Hearing loss of both ears. History of rheumatic fever. Hyperlipidemia (02/19/11). LDL baseline 127. intol ator, simv 20mg. Hypertension. Loss of equilibrium. Mild obstructive sleep apnea (06/29/20). Old myocardial infarction. 1999. RANDEE (obstructive sleep apnea). Osteopenia (02/19/11). T -1.6. Osteoporosis. Pneumonia. Positive cardiac stress test (06/30/17). has sched cardiac cath 07/[address] Arnett. Pulmonary edema. Rectal bleed. Sciatica. Syncope (05/15/14). neg w/u. Type 2 diabetes mellitus. Urinary incontinence (06/05/14). Sacral stimulator: [facility] Stokes in [facility]. Surgical History . Colonoscopy - MAC (12/13/16). Coronary Stent (07/12/17). [facility]. Kenyon Arnett MD report date . procedures: coronary angiography,left heart catherization,coronary stent insertion. x2. EGD - MAC (12/13/16). Postsurgical percutaneous transluminal coronary angioplasty status. 2008. S/P right knee arthroscopy. Dr. Galloway. >10 years. Status post implantation of urinary electronic stimulator device. Tonsillectomy PREVIOUS FUNCTIONAL STATUS/SOCIAL/FAMILY SUPPORTS:: Sonia resides in [facility] with her friend Maureen. Patient has Alzheimers/dementia, DPOA/Caregiver is Maureen Hernandez ([phone]). CURRENT FUNCTIONAL STATUS:: Sonia had an ECHO this morning, and is now preparing for discharge. No additional services or needs anticipated at this time. ADVANCE DIRECTIVES:: On File, [facility]CA is Maureenpaula Hernandez. COLST form on File Has patient been provided with info about the portal/API?: Yes Did the patient sign up for the portal?: Yes CODE STATUS:: DNR/DNI INSURANCE COVERAGE / FINANCIAL ISSUES:: [employer] Medicare CURRENT HOME/COMMUNITY SERVICES/EQUIPMENT:: [employer] PRIMARY CARE PHYSICIAN:: Savanna Guillen POTENTIAL DISCHARGE NEEDS:: Follow up appointments. PATIENT/FAMILY EDUCATION NEEDS:: Review discharge instructions, limitations and plan to follow up with community providers. ask me three. ANTICIPATED BARRIERS TO DISCHARGE:: None identified. TRANSPORTATION:: Via private car with friend Loulou at time of discharge. PLAN:: Anticipate Sonia will discharge home when medically cleared with no additional services at this time. She will follow up with community providers including Dr. Munguia in [place] and discharge plan of care as prescribed. Sonia will transport via private vehicle with her friend Maureen.
--- NOTE | 2022-02-09 09:48 | W.PM.DS.N ---
Date of service: 02/09/22 Time of Service: 18:49 DS: Diagnosis Discharge Diagnosis (1) CAD (coronary artery disease): Status: Chronic Discharge Plan Disposition Patient Disposition: Home Condition: Good Discharge Details Reason For Visit: Coronary Artery Admit Date/Time: 02/08/22 15:13 Admit Provider: Jodi Perez Attending Provider: Jodi Perez [facility] Hospital Course: This is an 86-year-old female patient with multiple medical problems including a history of insulin-dependent diabetes, atrial fibrillation, not on anticoagulation, coronary artery disease status post stents in the past, on THOMAS, who presented to the [facility] emergency department with a chief complaint of chest pain.? Patient noted the night prior to admission she was not feeling well, she felt a little lightheaded.? She woke up around 6 AM yesterday morning with chest discomfort described as heaviness across her chest and radiating to her left shoulder and jaw.? She had associated diaphoresis.? She also noted associated tingling paresthesia in her left arm.? She stated symptoms are similar to when she had?MIs 2 times in the past.? Patient took a nitro sublingual and EMS administered aspirin.? She noted pain resolved prior to arrival in the ED.? She remained pain-free in the emergency department. She does note some chronic dyspnea on exertion.? No recent cough or fever. No current difficulty breathing, no NVD.? Her troponins are negative.?EKG normal sinus rhythm. Given her history she was put on observation status with telemetry on the medical floor. Cardiology was consulted.? She had no further symptoms overnight and is feeling well this morning, no ectopy overnight on telemetry. She is followed by Dr. Munguia, nuclear plant equipment operator, in [place], her next appointment is at the end of February. Cardiology recommends continued medical therapy, no indication for any type of ischemic evaluation such as myocardial perfusion imaging or repeat cardiac catheterization. Echo this morning: Normal left ventricular wall thickness and chamber size.? Estimated ejection fraction is 55 to 60%.? There are no segmental wall motion abnormalities Right ventricle is grossly normal in size and systolic function Both atria are normal in size The aortic valve is calcified and trileaflet.? There is mild aortic stenosis.? The peak gradient is 30, mean 17 mmHg.? Calculated mitral valve area is 1.8 cm??.? There is mild aortic regurgitation Mitral annular calcification.? Mild mitral regurgitation She is stable, no oxygen requirement, no chest pain or shortness of breath, vss.? She is discharged to home with no services. ? Discussed with Dr Perez Home Meds and New Rx's Prescriptions: New nitroglycerin 0.4 mg tablet, sublingual 0.4 mg sublingual Q5-15M PRNQty: 30 0RF Rx Instructions: do not exceed 3 doses per episode Continued (DME) FreeStyle Saurabh 14 Day Sensor Kit See Rx Instructions .ROUTE .MEDSUPPLY Qty: 1 0RF Rx Instructions: As directed (DME) Poise Pads Pad See Rx Instructions .ROUTE .MEDSUPPLY Qty: 312 12RF Rx Instructions: As directed (DME) diaper,brief,adult,disposable Misc See Rx Instructions .ROUTE .MEDSUPPLY Qty: 126 12RF Rx Instructions: Size LARGE Change As directed turmeric 400 mg capsule 400 mg PO DAILY Rx Instructions: turmeric with curcumin - recommended by Neuro for memory concerns. 06/18/20 EO donepezil 10 mg tablet 10 mg PO QHS Qty: 90 3RF pantoprazole 40 mg tablet,delayed release (DR/EC) 40 mg PO DAILY budesonide-formoterol [Symbicort] 160-4.5 mcg/actuation HFA aerosol inhaler 2 puff inhalation BID Qty: 10.2 6RF (DME) nebulizer and compressor Device See Rx Instructions .Route Qty: 1 0RF Rx Instructions: As directed Mucinex 1,200 mg tablet extended release 12hr 1,200 mg PO Q12H PRN (Reason: cold symptoms) Qty: 30 1RF Rx Instructions: Cough (DME) FreeStyle Saurabh 14 Day [place] Misc See Rx Instructions .ROUTE .MEDSUPPLY Qty: 2 12RF Rx Instructions: As directed nortriptyline 10 mg capsule 10 mg PO HS Qty: 90 3RF Rx Instructions: for chronic pain and diabetic neuropathy insulin glargine [Lantus Solostar U-100 Insulin] 100 unit/mL (3 mL) insulin pen 50 unit Sub-Q BID Qty: 30 12RF ropinirole 1 mg tablet 1 mg PO QPM Qty: 90 3RF Rx Instructions: TAKE 1 TABLET BY MOUTH 2 HOURS PRIOR TO BEDTIME memantine 10 mg tablet 10 mg PO BID Qty: 180 3RF metoprolol tartrate 25 mg tablet 25 mg PO BID Qty: 180 3RF (DME) nebulizer accessories Kit See Rx Instructions .Route Qty: 2 6RF Rx Instructions: As directed aspirin 81 mg tablet,delayed release (DR/EC) 81 mg PO HS Qty: 90 3RF nitroglycerin [Nitrostat] 0.4 mg tablet, sublingual 0.4 mg Sublingual Q5 MIN PRN X3 PRN (Reason: chest pain) Qty: 50 6RF Rx Instructions: Use as directed (DME) pen needle, diabetic [BD Ultra-Fine Marilyn Pen Needle] 32 gauge x needle 1 unit Miscellaneous HS Qty: 200 3RF Rx Instructions: TO USE WITH LANTUS SOLOSTART PEN clopidogrel 75 mg tablet 75 mg PO DAILY Qty: 90 3RF isosorbide mononitrate 60 mg tablet extended release 24 hr 60 mg PO DAILY Qty: 90 3RF clindamycin HCl 150 mg capsule 600 mg PO ONCE Qty: 4 0RF rosuvastatin [Crestor] 20 mg tablet 20 mg PO DAILY Qty: 90 3RF pregabalin 50 mg capsule 50 mg PO BID Qty: 60 2RF ascorbic acid (vitamin C) 500 mg Tablet 500 mg PO DAILY ferrous sulfate 325 mg (65 mg iron) Tablet 325 mg PO DAILY Azo Bladder Control 300 mg Capsule 1 cap PO BID albuterol sulfate [ProAir HFA] 90 mcg/actuation HFA aerosol inhaler 1 - 2 puff Inhalation Q4H PRN PRN (Reason: Shortness Of Breath) Rx Instructions: DISPENSE WITH SPACER DX: WHEEZE Discharge Instructions Instructions: Nitroglycerin (By mouth), Angina (DC) Additional Instructions: Continue home medications; follow up with PCP and Cardiology as planned. If you experience chest pain, take one nitroglycerin tablet under your tongue, it should tingle. You can take one every five minutes for up to a maximum of three doses. If the pain does not subside after three doses, call 911. Stand Alone Forms: Nursing Discharge Form Referrals: Amari Munguia [ NON-[facility] STAFF PHYSICIAN] - (Keep appointment you have in February) Savanna Guillen NP [Primary Care Provider] - 03/01/22 1:00 pm (Follow up with Savanna Guillen NP. 03/01 at 1:00) Activity:: Activity as Tolerated Equipment/Supplies:: No Equipment Needed Diet:: Low Sodium Discharge Orders Discharge Orders: Discharge Order (Routine); Ordered 02/09/22 Ordered By: Vicki Patel Discharge Data Discharge Date/Time-TO BE ENTERED AT DEPARTURE: 02/09/22 12:40 DS: Summary Time Spent with Patient providing and/or coordinating discharge services: Greater than 30 minutes Status at Discharge Functional status at discharge: independent ambulation Overall status at discharge: patient is back to baseline Mental Status: mental status grossly normal Speech and Movement: speech and movement normal Mood: congruent mood Affect: normal affect Exam Narrative Exam Narrative: Awake, alert, sitting in the chair in the room. Ate breakfast, no complaints. She was seen by cardiology - see their note. Const General: cooperative and no acute distress HENMT Mouth: moist mucous membranes Eyes Conjunctivae: normal conjunctivae Sclera: normal sclerae Neck Neck: trachea midline and supple Resp Auscultation: clear to auscultation bilaterally, no rales, no rhonchi and no wheezes Cardio Rate: regular rate and not tachycardic Rhythm: regular rhythm Heart Sounds: murmur systolic III/ GI Palpation: soft, not firm, no guarding, no masses, not rigid and nontender Skin General skin exam: no rashes or lesions noted Neuro General: patient alert, patient awake and tone normal Extrem General: no calf tenderness and edema (BLE - trace) Psych Appearance: grossly normal Mental Status: mental status grossly normal Speech and Movement: speech and movement normal Mood: congruent mood Affect: normal affect DS: Data Vitals/I&O Vitals and I&O: Vital Signs Temperature 36.2 C L 02/09/22 07:37 Temperature Source Tympanic 02/09/22 07:37 Pulse 69 02/09/22 07:37 Pulse Rhythm Regular 02/09/22 04:57 Pulse 70 02/08/22 15:30 Respiratory Rate 19 02/09/22 07:37 Respiratory Effort Non-Labored 02/09/22 04:57 Respiratory Depth Normal 02/09/22 04:57 Respiratory Pattern Normal 02/09/22 04:57 Blood Pressure 171/78 H 02/09/22 07:37 Blood Pressure Mean 84 02/08/22 13:46 Blood Pressure Position Sitting 02/08/22 10:27 Pulse Oximetry 93 02/09/22 07:37 Oxygen Delivery Method Room Air 02/09/22 07:37 Oxygen Flow Rate 0 02/09/22 07:37 Pain Level 0 02/08/22 16:32 Intake & Output 02/08/22 02/08/22 02/09/22 11:59 23:59 11:59 Output Total 125 / 125 350 / 350 Balance -125 / -125 -350 / -350 Weight 91.172 kg 95.6 kg 94.7 kg Output: Urine 125 / 125 350 / 350 Other: Urine Color Yellow Yellow Urine Appearance Clear Clear Urine Odor Normal Normal Voiding Methods Toilet Toilet Data Completed and Pending Labs on day of discharge: Labs from last 24 hours 02/09/22 02/09/22 02/08/22 06:55 06:55 20:09 WBC 5.57 RBC 4.34 Hgb 12.5 Hct 38.2 MCV 88 MCH 28.8 MCHC 32.7 RDW 13.3 Plt Count 175 MPV 10.5 Immature Gran % 0.2 Neutrophils % 58.5 Lymphocytes % 26.8 Monocytes % 11.1 Eosinophils % 2.7 Basophils % 0.7 Nucleated RBC % 0.0 Absolute Neutrophils 3.26 Absolute Lymphocytes 1.49 Absolute Monocytes 0.62 Absolute Eosinophils 0.15 Absolute Basophils 0.04 PT INR APTT Sodium 142 Potassium 3.6 Chloride 106 Carbon Dioxide 28.5 Anion Gap 7.5 BUN 13 Creatinine 1.1 H Est GFR (CKD-EPI 2020) 49.24 Glucose 80 Calcium 8.8 Magnesium 1.8 Total Bilirubin AST ALT Alkaline Phosphatase Troponin I < 50 NT-Pro-B Natriuret Pep Total Protein Albumin TSH COVID-19 Source SARS-CoV-2 (PCR) 02/08/22 02/08/22 02/08/22 20:01 18:15 15:56 WBC RBC Hgb Hct MCV MCH MCHC RDW Plt Count MPV Immature Gran % Neutrophils % Lymphocytes % Monocytes % Eosinophils % Basophils % Nucleated RBC % Absolute Neutrophils Absolute Lymphocytes Absolute Monocytes Absolute Eosinophils Absolute Basophils PT INR APTT Sodium Potassium Chloride Carbon Dioxide Anion Gap BUN Creatinine Est GFR (CKD-EPI 2020) Glucose Calcium Magnesium Total Bilirubin AST ALT Alkaline Phosphatase Troponin I Cancelled NT-Pro-B Natriuret Pep Total Protein Albumin TSH 3.06 COVID-19 Source Nasal/Nares SARS-CoV-2 (PCR) Negative 02/08/22 02/08/22 02/08/22 13:10 10:48 10:48 WBC 7.71 RBC 4.48 Hgb 13.0 Hct 39.4 MCV 88 MCH 29.0 MCHC 33.0 RDW 13.2 Plt Count 173 MPV 9.9 Immature Gran % 0.3 Neutrophils % 72.0 Lymphocytes % 17.4 Monocytes % 7.8 Eosinophils % 1.9 Basophils % 0.6 Nucleated RBC % 0.0 Absolute Neutrophils 5.55 Absolute Lymphocytes 1.34 Absolute Monocytes 0.60 Absolute Eosinophils 0.15 Absolute Basophils 0.05 PT INR APTT Sodium Potassium Chloride Carbon Dioxide Anion Gap BUN Creatinine Est GFR (CKD-EPI 2020) Glucose Calcium Magnesium Total Bilirubin AST ALT Alkaline Phosphatase Troponin I < 50 NT-Pro-B Natriuret Pep 357 H Total Protein Albumin TSH COVID-19 Source SARS-CoV-2 (PCR) 02/08/22 02/08/22 10:48 10:48 WBC RBC Hgb Hct MCV MCH MCHC RDW Plt Count MPV Immature Gran % Neutrophils % Lymphocytes % Monocytes % Eosinophils % Basophils % Nucleated RBC % Absolute Neutrophils Absolute Lymphocytes Absolute Monocytes Absolute Eosinophils Absolute Basophils PT 10.4 INR 1.0 APTT 22.2 Sodium 142 Potassium 4.0 Chloride 103 Carbon Dioxide 30.6 Anion Gap 8.4 BUN 12 Creatinine 1.2 H Est GFR (CKD-EPI 2020) 44.36 Glucose 89 Calcium 9.2 Magnesium 1.7 L Total Bilirubin 0.8 AST 27 ALT 19 Alkaline Phosphatase 132 H Troponin I < 50 NT-Pro-B Natriuret Pep Total Protein 7.9 Albumin 3.6 TSH COVID-19 Source SARS-CoV-2 (PCR) PFSH All Active Problems Discharge planning issues (Acute) DVT prophylaxis (Acute) Chest pain (Acute) Weight gain (Acute) CAD (coronary artery disease) (Chronic) NSTEMI (non-ST elevated myocardial infarction) (Acute) SARS-CoV-2 positive (Acute ~08/07/21) Asthma (Chronic) Uncontrolled diabetes mellitus (Chronic) Non-proliferative diabetic retinopathy, mild, right eye (Acute) Obesity (BMI 30.0-34.9) (Chronic) Heart murmur (Acute) Diabetes mellitus with neuropathy (Acute) goal 7.5; insulin begun 07/2016 Alzheimer's dementia without behavioral disturbance (Chronic) DNI (do not intubate) (Acute) DNR (do not resuscitate) (Acute) POLST (Physician Orders for Life-Sustaining Treatment) (Acute) Cough in adult (Chronic) Goals of care, counseling/discussion (Acute) Palliative care patient (Acute) Mediastinal lymphadenopathy (Acute) 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 Pylori Status post total knee replacement, right (Acute) DOS: 06/26/2018 Dr. Turner Esophagitis (Acute 12/13/16) Dehydration (Acute) Transient global amnesia (Acute) HEAD (dyspnea on exertion) (Acute) Chest pain at rest (Acute) Status post total knee replacement (Acute) ASCVD (arteriosclerotic cardiovascular disease) (Acute) Cardiloogy Stefan Munguia Carpal tunnel syndrome on right (Acute) s/p ECTR DOS: 03/04/20 Derangement of left acromioclavicular joint (Acute) Obesity (Chronic) Tendonitis of left rotator cuff (Acute) Colitis (Acute) resolved. Primary osteoarthritis of right knee (Chronic) Tinnitus of both ears (Acute 09/26/14) Skin lesion of left ear (Acute 10/31/15) Sensorineural hearing loss, bilateral (Acute 09/13/13) Sciatica (Acute 02/19/11) Primary osteoarthritis involving multiple joints (Acute 10/30/14) Diverticulitis of colon (Acute 02/19/11) RECURRENT Diabetic neuropathy (Chronic 01/24/14) peripheral neuropathy Medical History JEMIMA (acute kidney injury) Alzheimer's dementia Angina at rest (02/19/11) very rare, follow with Dr. Fiore Atherosclerosis of [place] coronary artery of [place] heart with angina pectoris UNSTABLE ANGINA, CATH 01/2011 JOHN to OM1 EF 65%. MPI 4/26/12 no ischemia, sm septal defect, nl EF Chest pain (04/28/14) Chronic kidney disease, stage III (moderate) Edema (09/05/15) nl EF, proably venous Essential hypertension (07/27/12) goal 140/90 Fibromyalgia (12/18/14) Dx 12/[address] Kraft Rheum [facility] Gastritis, chronic (12/13/16) with gastric polyps. (12/13/16 report of operation). [place] GERD (gastroesophageal reflux disease) H/O diverticulitis of colon Hearing loss of both ears History of rheumatic fever Hyperlipidemia (02/19/11) LDL baseline 127 intol ator, simv 20mg Hypertension Loss of equilibrium Mild obstructive sleep apnea (06/29/20) Old myocardial infarction 1999 RANDEE (obstructive sleep apnea) Osteopenia (02/19/11) T -1.6 Osteoporosis Pneumonia Positive cardiac stress test (06/30/17) has sched cardiac cath 07/[address] Arnett. Pulmonary edema Rectal bleed Sciatica Syncope (05/15/14) neg w/u Type 2 diabetes mellitus Urinary incontinence (06/05/14) Sacral stimulator: Dr Stokes in [facility] Surgical History Colonoscopy - MAC (12/13/16) Coronary Stent (07/12/17) [facility] [place]. Kenyon Arnett MD report date . procedures: coronary angiography,left heart catherization,coronary stent insertion. x2 EGD - MAC (12/13/16) Postsurgical percutaneous transluminal coronary angioplasty status 2008 S/P right knee arthroscopy Dr. Galloway >10 years Status post implantation of urinary electronic stimulator device Tonsillectomy Family History Father , [place] Heart disease Hypertension Sister , age 76 Stomach cancer Colon cancer Mother , at age 102 Hypertension Heart disease Paternal Grandfather Stroke Niece No problems noted. Social History Smoking/Tobacco Use Status: Former Tobacco Use Quit Date: 02/15/68 Tobacco: How many years used: 18 Second Hand Exposure: No Smoking risk assessment performed?: Yes Alcohol Intake: current Alcohol Intake frequency: holidays/special occasions only Alcohol type: wine Drug use: Never Substance use type: does not use Adopted: No Caregiver/Support person: Yes Foster care: No Household members: friend(s) Housing: house Number of Children: 0 Communication Needs: Hard of Hearing and Corrective Lenses Education Level: high school Do you need help understanding health information?: Always current occupation: retired Pets and animals: Yes Pets and animals: cat(s) Sexually active: No Do you think of yourself as: straight/heterosexual Current gender identity: female What is your relationship status?: living with partner How often do you get together with friends or relatives?: once per week Do you belong to any clubs or organized social groups?: yes Panel score (0-1 are the most socially isolated patients): 2 What type of physical activity do you participate in: walking and sedentary lifestyle Duration: 15-30 minutes/day Frequency: 1-2 times per week Shannan/Hinduism: Judaism Special shannan needs: No Seatbelt use: always Drive intox or ride w/intox fire truck driver: No Working smoke detector in home: Yes Fire extinguisher in home: Yes Carbon monox detector in home: Yes Do you feel safe at home: Yes Do you feel safe in your relationship?: Yes Additional Social history: Sonia has lived with her partner, Jessenia, for more than 60 years. They met at the [facility] in [place], [place]. Jessenia is from [place]. They retired here, not sure when a long time ago. 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 Pleasant. Worked on paperwork at 03/24/21 visit: Jessenia is health care agent; Sonia chose DNR/DNI but with limited interventions included IVF and antibiotics.
[2022-02-09] MEDS: Normal Saline Flush 10 ML SYR IVP (10:06)
[2022-02-09] MEDS: Ascorbic Acid 500 MG TAB PO (11:10)
[2022-02-09] MEDS: Clopidogrel 75 MG TAB PO (11:10)
[2022-02-09] MEDS: Ferrous Sulfate 325 MG TAB PO (11:11)
[2022-02-09] MEDS: Memantine 5 MG TAB 10 MG PO (11:11)
[2022-02-09] MEDS: Isosorbide Mononitrate 60 MG TABCR PO (11:11)
[2022-02-09] MEDS: Metoprolol 25 MG TAB PO (11:13)
[2022-02-09] MEDS: Pantoprazole 40 MG TABCR PO (11:13)
[2022-02-09] MEDS: Pregabalin 50 MG CAP PO (11:14)
[2022-02-09] MEDS: Rosuvastatin 10 MG TAB 20 MG PO (11:14)
[2022-02-09 11:16] VITALS: BP 137/71; PULSE 79; RESP 17; TEMP 36.5; O2SAT 94
--- NOTE | 2022-02-09 13:03 | CMDISCH_ITS ---
- If Service Date Differs Date of service: 02/09/22 Time of Service: 13:03 LACE Index Scoring Tool - Questions: Length of Stay (in days): 1 Acuity (Admit via E.D.?): Yes Comorbidities: Diabetes w/o Complication, Dementia, Liver or Renal Disease E.D. Visits: 4 - Answers: Total Score: 13 Risk of Readmission: High Risk Care Management Discharge Reason for Hospitalization: Coronary Artery Discharge Plan: Sonia will discharge home when medically cleared with no additional services at this time. She will follow up with community providers including Dr. Munguia in [place] and discharge plan of care as prescribed. Sonia will transport via private vehicle with her friend Maureen. Patient/Family Education Needs: Review discharge instructions, limitations and plan to follow up with community providers. Ask Me Three.
== END 2022-02-09 12:40 | disposition home or self-care (01) ==
LOC: ER 15:42 → MS 16:24
PROVIDERS: Nurse Practitioner Family; Admitting Provider Internal Medicine; Emergency Provider Student in an Organized Health Care Education/Training Program; PCP Nurse Practitioner; Visit Provider Internal Medicine
DX: I25.119 Atherosclerotic heart disease of native coronary artery with unspecified angina pectoris (principal); I48.91 Unspecified atrial fibrillation; E11.65 Type 2 diabetes mellitus with hyperglycemia; J45.909 Unspecified asthma, uncomplicated; R06.02 Shortness of breath; R05.9 Cough, unspecified; I10 Essential (primary) hypertension; R61 Generalized hyperhidrosis; R20.2 Paresthesia of skin; G30.9 Alzheimer's disease, unspecified; R06.00 Dyspnea, unspecified; F02.80 Dementia in other diseases classified elsewhere, unspecified severity, without behavioral disturbance, psychotic disturbance, mood disturbance, and anxiety; E66.9 Obesity, unspecified; E11.42 Type 2 diabetes mellitus with diabetic polyneuropathy; Z66 Do not resuscitate; R59.0 Localized enlarged lymph nodes; M15.9 Polyosteoarthritis, unspecified; Z68.35 Body mass index [BMI] 35.0-35.9, adult; Z79.4 Long term (current) use of insulin; Z79.899 Other long term (current) drug therapy; Z95.5 Presence of coronary angioplasty implant and graft; Z20.822 Contact with and (suspected) exposure to COVID-19; I08.0 Rheumatic disorders of both mitral and aortic valves; I25.2 Old myocardial infarction
CPT/HCPCS: 36415; 80048; 80053; 87635; 93005; 93306; 94640; 96372; 99219; 99285; J1650; 71046; 83735; 83880; 84443; 84484; 85025; 85610; 85730; 93010; 99217; G0378

== ENCOUNTER → 2022-05-03 08:59 | Outpatient (BNVA) | payer MEDICARE, SELFPAY | PROVIDERS: PCP Nurse Practitioner; Visit Provider Nurse Practitioner Adult Health | DX: G30.9 Alzheimer's disease, unspecified (principal); F02.80 Dementia in other diseases classified elsewhere, unspecified severity, without behavioral disturbance, psychotic disturbance, mood disturbance, and anxiety | CPT/HCPCS: 99213 ==

== ENCOUNTER 2022-06-16 02:30 | Outpatient (CLI) | payer MEDICARE, SELFPAY ==
[2022-06-16 10:16] LABS: Hemoglobin A1C 9.7 % (<5.7)
[2022-06-16 10:28] LABS: ALT 24 U/L (14-59); AST 17 U/L (15-37); Albumin 3.2 g/dL (3.4-5.0); Alkaline Phosphatase 133 U/L (46-116); Anion Gap 8.8 mmol/L (3-11); BUN 11 mg/dL (7-18); Bilirubin, Total 0.6 mg/dL (0.2-1.0); CO2 29.2 mmol/L (21.0-32.0); CREATININE 1.1 mg/dL (0.55-1.02); Calculated LDL 32 mg/dL (<100); Chloride 103 mmol/L (98-107); Cholesterol 108 mg/dL (<200); Estimated GFR 49.24 (mL/min/1.73m2); Glucose 140 mg/dL (74-106); HDL Cholesterol 47 mg/dL (40-60); Potassium 4.2 mmol/L (3.5-5.1); Sodium 141 mmol/L (136-145); Total Protein 7.2 g/dL (6.4-8.2); Triglyceride 147 mg/dL (<150)
== END 2022-06-16 02:31 | disposition home or self-care (01) ==
LOC: LBO 02:31
PROVIDERS: PCP Nurse Practitioner; Visit Provider Nurse Practitioner
DX: E11.40 Type 2 diabetes mellitus with diabetic neuropathy, unspecified (principal); E78.5 Hyperlipidemia, unspecified; I25.10 Atherosclerotic heart disease of native coronary artery without angina pectoris
CPT/HCPCS: 36415; 80053; 80061; 83036

== ENCOUNTER 2022-07-16 09:30 | Emergency (ER) | payer MEDICARE, SELFPAY ==
[2022-07-16 09:30] VITALS: BP 199/73; PULSE 81; RESP 18; TEMP 36.6; O2SAT 94
[2022-07-16] MEDS: Metoprolol 25 MG TAB PO (10:12)
--- NOTE | 2022-07-16 11:04 | ED.GENADUL_ITS ---
Discharge Plan Disposition Patient Disposition: Home Condition: Improving Discharge Details Clinical Impression: Epistaxis Primary Care Provider: Savanna Guillen ED Provider: Josse Boyd Home Meds and New Rx's Prescriptions: New clindamycin HCl 300 mg capsule 300 mg PO TID 7 Days Qty: 21 0RF Continued (DME) FreeStyle Saurabh 14 Day Sensor Kit See Rx Instructions .ROUTE .MEDSUPPLY Qty: 1 0RF Rx Instructions: As directed (DME) Poise Pads Pad See Rx Instructions .ROUTE .MEDSUPPLY Qty: 312 12RF Rx Instructions: As directed (DME) diaper,brief,adult,disposable Misc See Rx Instructions .ROUTE .MEDSUPPLY Qty: 126 12RF Rx Instructions: Size LARGE Change As directed turmeric 400 mg capsule 400 mg PO DAILY Rx Instructions: turmeric with curcumin - recommended by Neuro for memory concerns. 06/18/20 EO ropinirole 1 mg tablet 1 mg PO QPM Qty: 90 3RF Rx Instructions: TAKE 1 TABLET BY MOUTH 2 HOURS PRIOR TO BEDTIME memantine 10 mg tablet 10 mg PO BID Qty: 180 3RF nortriptyline 10 mg capsule 10 mg PO HS Qty: 90 3RF Rx Instructions: for chronic pain and diabetic neuropathy (DME) nebulizer and compressor Device See Rx Instructions .Route Qty: 1 0RF Rx Instructions: As directed Mucinex 1,200 mg tablet extended release 12hr 1,200 mg PO Q12H PRN (Reason: cold symptoms) Qty: 30 1RF Rx Instructions: Cough budesonide-formoterol [Symbicort] 160-4.5 mcg/actuation HFA aerosol inhaler 2 puff inhalation BID Qty: 10.2 6RF (DME) FreeStyle Saurabh 14 Day [place] Misc See Rx Instructions .ROUTE .MEDSUPPLY Qty: 2 12RF Rx Instructions: As directed (DME) nebulizer accessories Kit See Rx Instructions .Route Qty: 2 6RF Rx Instructions: As directed aspirin 81 mg tablet,delayed release (DR/EC) 81 mg PO HS Qty: 90 3RF nitroglycerin [Nitrostat] 0.4 mg tablet, sublingual 0.4 mg Sublingual Q5 MIN PRN X3 PRN (Reason: chest pain) Qty: 50 6RF Rx Instructions: Use as directed (DME) pen needle, diabetic [BD Ultra-Fine Marilyn Pen Needle] 32 gauge x 5/32 needle 1 unit Miscellaneous HS Qty: 200 3RF Rx Instructions: TO USE WITH LANTUS SOLOSTART PEN clopidogrel 75 mg tablet 75 mg PO DAILY Qty: 90 3RF isosorbide mononitrate 60 mg tablet extended release 24 hr 60 mg PO DAILY Qty: 90 3RF pantoprazole 40 mg tablet,delayed release (DR/EC) 40 mg PO DAILY Qty: 90 3RF donepezil 10 mg tablet 10 mg PO QHS Qty: 90 3RF rosuvastatin [Crestor] 20 mg tablet 20 mg PO DAILY Qty: 90 3RF pregabalin 50 mg capsule 50 mg PO BID Qty: 60 2RF insulin glargine [Lantus Solostar U-100 Insulin] 100 unit/mL (3 mL) insulin pen See Rx Instructions Sub-Q BID Qty: 30 12RF Rx Instructions: Changed to 60 AM, 50 PM 06/17/22 metoprolol tartrate 25 mg tablet 25 mg PO BID Qty: 180 3RF ascorbic acid (vitamin C) 500 mg Tablet 500 mg PO DAILY ferrous sulfate 325 mg (65 mg iron) Tablet 325 mg PO DAILY albuterol sulfate [ProAir HFA] 90 mcg/actuation HFA aerosol inhaler 1 - 2 puff Inhalation Q4H PRN PRN (Reason: Shortness Of Breath) Rx Instructions: DISPENSE WITH SPACER DX: WHEEZE nitroglycerin 0.4 mg tablet, sublingual 0.4 mg sublingual Q5-15M PRNQty: 30 0RF Rx Instructions: do not exceed 3 doses per episode Discontinued Azo Bladder Control 300 mg Capsule 1 cap PO BID Patient Comments: not taking Discharge Instructions Instructions: Nosebleed (ED) Additional Instructions: Mild dripping is common and can be expected but you should not have any further brisk bleeding or significant worsening of your condition. If this occurs return immediately to the emergency department for reassessment. You have been placed on a referral list to follow-up with ENT for device removal and please call their office on Tuesday afternoon for arrangement of follow-up appointment. Referrals: [facility] [Provider Group] Discharge Data Discharge Date/Time-TO BE ENTERED AT DEPARTURE: 07/16/22 12:33 Medical Decision Making Patient presenting to the emergency department for chief complaint nosebleed. Patient coming in via EMS and states that this morning when she woke up she went to wipe her nose and started bleeding from right nare. Patient denies any other injury or trauma, denies normal nosebleeding, denies any other source of bleeding or bruising that is abnormal. Patient is on aspirin and Plavix due to cardiac history but not on any direct anticoagulant. Physical exam shows nasal clamp in place with slight dripping from right nare. Patient is also hypertensive but states she was unable to take her morning medication. Exam is otherwise unremarkable. We will leave the clamp in place for additional time. Before having patient expel clot for further visualization Bleeding had mostly stopped and patient attempted to expel clot from right nare. Brisk bright red blood bleeding started almost immediately. Was unable to visualize source of bleeding so a 7.5 Rhino Rocket was placed. Patient was observed and had only mild dripping noted. She did state some pain from the device which we attempted to relieve some pressure but more drip and was noted so pressure was increased until bleeding stopped. Patient started on clindamycin due to penicillin allergy pending ENT follow-up for removal of device. After discussion of diagnosis and plan of care patient has no further needs, questions, or concerns and states clear understanding to return to the emergency department for any worsening symptoms. This documentation was generated using [employer] dictation system, please disregard any oddities of phrase or misspellings. HPI General Mode of arrival: EMS . Date/Time Provider Initiated Documentation: 07/16/22 09:50 . Limitations to Documentation: no limitations . Information obtained by: patient and RN notes reviewed . History of Present Illness 86 year old F presents to the emergency department with the chief complaint of Nosebleed, described as moderate, and is localized to the right (nare). Patient started experiencing this minute(s) (20) and it has been constant. No relieving factors improve symptom(s), No exacerbating factors reported . Patient notes no other symptoms.. Patient did receive the following treatments prior to arrival, other (Nasal clamp per EMS) Related Data Home Medications Medication Instructions Recorded Confirmed diaper,brief,adult,disposable #126 ea 12/24/19 07/16/22 flash glucose sensor (FreeStyle #1 ea 12/24/19 07/16/22 Saurabh 14 Day Sensor kit) incontinence pad, liner, disp #312 ea 12/24/19 07/16/22 (Poise Pads) turmeric 400 mg capsule 400 mg PO DAILY 06/18/20 07/16/22 flash glucose scanning reader #2 ea 07/03/20 07/16/22 (FreeStyle Saurabh 14 Day [place]) guaifenesin 1,200 mg tablet, 1,200 mg PO Q12H PRN cold symptoms 06/12/21 07/16/22 extended release 12 hr (Mucinex) #30 tabs nebulizer and compressor #1 ea 07/16/21 07/16/22 nebulizer accessories #2 ea 07/21/21 07/16/22 aspirin 81 mg tablet,delayed 81 mg PO HS #90 tabs 08/25/21 07/16/22 release nitroglycerin 0.4 mg sublingual 0.4 mg sublingual Q5 MIN PRN X3 08/31/2104/08 tablet (Nitrostat) PRN chest pain #50 tabs pen needle, diabetic 32 gauge x #200 ea 08/31/21 07/16/2232 (BD Ultra-Fine Marilyn Pen Needle) clopidogrel 75 mg tablet 75 mg PO DAILY #90 tabs 09/26/21 07/16/22 isosorbide mononitrate 60 mg 60 mg PO DAILY #90 tabs 09/26/21 07/16/22 tablet,extended release 24 hr albuterol sulfate 90 mcg/actuation 1 - 2 puff inhalation Q4H PRN PRN 02/08/22 07/16/22 aerosol inhaler (ProAir HFA) Shortness Of Breath ascorbic acid (vitamin C) 500 mg 500 mg PO DAILY 02/08/22 07/16/22 tablet ferrous sulfate 325 mg (65 mg 325 mg PO DAILY 02/08/22 07/16/22 iron) tablet nitroglycerin 0.4 mg sublingual 0.4 mg sublingual Q5-15M PRN #30 02/09/22 07/16/22 tablet tabs nortriptyline 10 mg capsule 10 mg PO HS #90 caps 02/10/22 07/16/22 pantoprazole 40 mg tablet,delayed 40 mg PO DAILY #90 tabs 03/30/22 07/16/22 release donepezil 10 mg tablet 10 mg PO QHS #90 tabs 04/26/22 07/16/22 rosuvastatin 20 mg tablet (Crestor) 20 mg PO DAILY #90 tabs 04/26/22 07/16/22 memantine 10 mg tablet 10 mg PO BID #180 tabs 05/03/22 07/16/22 ropinirole 1 mg tablet 1 mg PO QPM #90 tabs 05/03/22 07/16/22 budesonide-formoterol HFA 160 2 puff inhalation BID #10.2 grams 05/11/22 07/16/22 mcg-4.5 mcg/actuation aerosol inhaler (Symbicort) pregabalin 50 mg capsule 50 mg PO BID #60 caps 06/04/22 07/16/22 insulin glargine 100 unit/mL (3 See Rx Instructions subcut BID #30 06/17/22 07/16/22 mL) subcutaneous pen (Lantus mL Solostar U-100 Insulin) metoprolol tartrate 25 mg tablet 25 mg PO BID #180 tabs 07/02/22 07/16/22 clindamycin HCl 300 mg capsule 300 mg PO TID 7 days #21 caps 07/16/22 Previous Rx's Medication Instructions Recorded diaper,brief,adult,disposable #126 ea 12/24/19 flash glucose sensor (FreeStyle #1 ea 12/24/19 Saurabh 14 Day Sensor kit) incontinence pad, liner, disp #312 ea 12/24/19 (Poise Pads) flash glucose scanning reader #2 ea 07/03/20 (FreeStyle Saurabh 14 Day [place]) guaifenesin 1,200 mg tablet, 1,200 mg PO Q12H PRN cold symptoms 06/12/21 extended release 12 hr (Mucinex) #30 tabs nebulizer and compressor #1 ea 07/16/21 nebulizer accessories #2 ea 07/21/21 aspirin 81 mg tablet,delayed 81 mg PO HS #90 tabs 08/25/21 release nitroglycerin 0.4 mg sublingual 0.4 mg sublingual Q5 MIN PRN X3 08/31/21 tablet (Nitrostat) PRN chest pain #50 tabs pen needle, diabetic 32 gauge x #200 ea 08/31/21/32 (BD Ultra-Fine Marilyn Pen Needle) clopidogrel 75 mg tablet 75 mg PO DAILY #90 tabs 09/26/21 isosorbide mononitrate 60 mg 60 mg PO DAILY #90 tabs 09/26/21 tablet,extended release 24 hr nitroglycerin 0.4 mg sublingual 0.4 mg sublingual Q5-15M PRN #30 02/09/22 tablet tabs nortriptyline 10 mg capsule 10 mg PO HS #90 caps 02/10/22 pantoprazole 40 mg tablet,delayed 40 mg PO DAILY #90 tabs 03/30/22 release donepezil 10 mg tablet 10 mg PO QHS #90 tabs 04/26/22 rosuvastatin 20 mg tablet (Crestor) 20 mg PO DAILY #90 tabs 04/26/22 memantine 10 mg tablet 10 mg PO BID #180 tabs 05/03/22 ropinirole 1 mg tablet 1 mg PO QPM #90 tabs 05/03/22 budesonide-formoterol HFA 160 2 puff inhalation BID #10.2 grams 05/11/22 mcg-4.5 mcg/actuation aerosol inhaler (Symbicort) pregabalin 50 mg capsule 50 mg PO BID #60 caps 06/04/22 insulin glargine 100 unit/mL (3 See Rx Instructions subcut BID #30 06/17/22 mL) subcutaneous pen (Lantus mL Solostar U-100 Insulin) metoprolol tartrate 25 mg tablet 25 mg PO BID #180 tabs 07/02/22 clindamycin HCl 300 mg capsule 300 mg PO TID 7 days #21 caps 07/16/22 Allergies Allergy/AdvReac Type Severity Reaction Status Date / Time Penicillins Allergy Severe skin rash Verified 05/11/22 10:44 atorvastatin AdvReac Intermediate muscle Verified 05/11/22 10:44 aches metformin AdvReac Intermediate Diarrhea Verified 05/11/22 10:44 oxybutynin AdvReac Intermediate makes Verified 05/11/22 10:44 memory worse General Stated Complaint: Epistaxis RAFAELA: 3 Review of Systems Constitutional Constitutional: Denies lethargy ENT Ears, Nose, Mouth, and Throat: Reports as per HPI, Denies bleeding gums and Reports epistaxis Cardiovascular Cardiovascular: Denies syncope Gastrointestinal Gastrointestinal: Denies hematochezia and Denies hematemesis Genitourinary Genitourinary: Denies hematuria Integumentary/Breasts Skin/Breast: Denies unusual bruising Neurologic Neurologic: Denies syncope Hematologic/Lymphatic Hematologic/Lymphatic: Denies easy bleeding PFSH All Active Problems (Updated 07/16/22 @ 11:18 by Josse Boyd NP) Epistaxis (Acute) Overactive bladder (Acute) 07/07/22 Nerve Stimulator placed by Dr Stokes Excessive sleepiness (Acute) Advance care planning (Acute) Atherosclerosis of artery of both lower extremities (Acute) 05/20/22 Reinaldo Rico DPM [facility] CAD (coronary artery disease) (Chronic) Diabetic neuropathy (Chronic) Tinnitus (Chronic) Syncope (Acute 04/28/14) Diabetes mellitus with neuropathy (Acute) goal 7.5; insulin begun 07/2016 Diabetic neuropathy (Chronic 01/24/14) peripheral neuropathy Diverticulitis of colon (Acute 02/19/11) RECURRENT Gastroesophageal reflux disease (Acute 02/19/11) EGD 12/13/16 neg for Ridley's, neg for H. Pylori Primary osteoarthritis involving multiple joints (Acute 10/30/14) Sciatica (Acute 02/19/11) Sensorineural hearing loss, bilateral (Acute 09/13/13) Skin lesion of left ear (Acute 10/31/15) Tinnitus of both ears (Acute 09/26/14) Primary osteoarthritis of right knee (Chronic) Colitis (Acute) resolved. Tendonitis of left rotator cuff (Acute) Heart murmur (Acute) Status post total knee replacement, right (Acute) DOS: 06/26/2018 Dr. Turner Esophagitis (Acute 12/13/16) Dehydration (Acute) Transient global amnesia (Acute) HEAD (dyspnea on exertion) (Acute) Chest pain at rest (Acute) Status post total knee replacement (Acute) ASCVD (arteriosclerotic cardiovascular disease) (Acute) Cardiloogy Stefan Munguia Obesity (Chronic) Derangement of left acromioclavicular joint (Acute) Carpal tunnel syndrome on right (Acute) s/p ECTR DOS: 03/04/20 Memory impairment (Acute) Fall (on) (from) other stairs and steps, initial encounter (Acute) Periodic limb movement sleep disorder (Acute 06/29/20) Cataplexy (Acute) Mediastinal lymphadenopathy (Acute) Palliative care patient (Acute) Goals of care, counseling/discussion (Acute) Cough in adult (Chronic) POLST (Physician Orders for Life-Sustaining Treatment) (Acute) DNR (do not resuscitate) (Acute) DNI (do not intubate) (Acute) Alzheimer's dementia without behavioral disturbance (Chronic) Obesity (BMI 30.0-34.9) (Chronic) Non-proliferative diabetic retinopathy, mild, right eye (Acute) Uncontrolled diabetes mellitus (Chronic) Asthma (Chronic) SARS-CoV-2 positive (Acute ~08/07/21) NSTEMI (non-ST elevated myocardial infarction) (Acute) Weight gain (Acute) Medical History (Updated 07/16/22 @ 11:18 by Josse Boyd NP) JEMIMA (acute kidney injury) Alzheimer's dementia Angina at rest (02/19/11) very rare, follow with Dr. Fiore Atherosclerosis of [place] coronary artery of [place] heart with angina pectoris UNSTABLE ANGINA, CATH 01/2011 JOHN to OM1 EF 65%. MPI 06/10/11 no ischemia, sm septal defect, nl EF Atypical nevus of back 04/02/22 surgical removal of 2 nevi and shave bx done for pathology. Dr Barrett Chest pain (04/28/14) Chronic kidney disease, stage III (moderate) Edema (09/05/15) nl EF, proably venous Essential hypertension (07/27/12) goal 140/90 Fibromyalgia (12/18/14) Dx 12/[address] Kraft [facility] Gastritis, chronic (12/13/16) with gastric polyps. (12/13/16 report of operation). [place] GERD (gastroesophageal reflux disease) H/O diverticulitis of colon Hearing loss of both ears History of non-ST elevation myocardial infarction (NSTEMI) History of rheumatic fever Hyperlipidemia (02/19/11) LDL baseline 127 intol ator, simv 20mg Hypertension Loss of equilibrium Mild obstructive sleep apnea (06/29/20) Old myocardial infarction 1999 RANDEE (obstructive sleep apnea) Osteopenia (02/19/11) T -1.6 Osteoporosis Pneumonia Positive cardiac stress test (06/30/17) has sched cardiac cath 07/[address] Arnett. Pulmonary edema Rectal bleed Sacral nerve stimulator present 07/07/[address] Stokes, Urologist (overactive bladder) Sciatica Syncope (05/15/14) neg w/u Type 2 diabetes mellitus Urinary incontinence (06/05/14) [facility] Colon[facility] - MAC (12/13/16) Coronary Stent (07/12/17) [facility] Kenyon Arnett MD report date . procedures: coronary angiography,left heart catherization,coronary stent insertion. x2 EGD - MAC (12/13/16) Postsurgical percutaneous transluminal coronary angioplasty status 2008 S/P right knee arthroscopy Dr. Galloway >10 years Status post implantation of urinary electronic stimulator device Tonsillectomy Family History Father , [place] Heart disease Hypertension Sister , age 76 Stomach cancer Colon cancer Mother , at age 102 Hypertension Heart disease Paternal Grandfather Stroke Niece No problems noted. Social History Smoking/Tobacco Use Status: Former Tobacco Use Quit Date: 02/15/68 Tobacco: How many years used: 18 Second Hand Exposure: No Smoking risk assessment performed?: Yes Alcohol Intake: current Alcohol Intake frequency: holidays/special occasions only Alcohol type: wine Drug use: Never Substance use type: does not use Adopted: No Caregiver/Support person: Yes Foster care: No Household members: friend(s) Housing: house Number of Children: 0 Communication Needs: Hard of Hearing and Corrective Lenses Education Level: high school Do you need help understanding health information?: Always current occupation: retired Pets and animals: Yes Pets and animals: cat(s) Sexually active: No Do you think of yourself as: straight/heterosexual Current gender identity: female What is your relationship status?: living with partner How often do you get together with friends or relatives?: once per week Do you belong to any clubs or organized social groups?: yes Panel score (0-1 are the most socially isolated patients): 2 What type of physical activity do you participate in: walking and sedentary lifestyle Duration: 15-30 minutes/day Frequency: 1-2 times per week Shannan/Presybeterian: Restorationist Special shannan needs: No Seatbelt use: always Drive intox or ride w/intox solid waste truck driver: No Working smoke detector in home: Yes Fire extinguisher in home: Yes Carbon monox detector in home: Yes Do you feel safe at home: Yes Do you feel safe in your relationship?: Yes Additional Social history: Sonia has lived with her partner, Jessenia, for more than 60 years. They met at the [facility] in [place], [place]. Jessenia is from [place]. They retired here, not sure when a long time ago. 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 Pleasant. Worked on paperwork at 03/24/21 visit: Jessenia is health care agent; Sonia chose DNR/DNI but with limited interventions included IVF and antibiotics. Exam Const General: cooperative, no acute distress and not ill appearing Orientation: alert, awake and oriented x3 HENMT Head: normal to inspection, normocephalic and atraumatic Ears: hearing grossly normal bilaterally and external ears normal General nose exam: epistaxis on the right active bleeding and source not visualized Mouth: oral mucosae normal, lip normal, tongue normal and moist mucous membranes Throat: posterior oropharynx normal Resp Effort & Inspection: normal respiratory effort, able to speak in complete sentences and no respiratory distress Auscultation: clear to auscultation bilaterally Cardio Rate: regular rate Rhythm: regular rhythm Heart Sounds: S1 normal and S2 normal Skin General skin exam: no rashes or lesions noted Neuro General: patient alert, patient awake, patient oriented x3, moves all extremities and no focal motor deficits Sensory Exam: no sensory deficits noted Course Vital Signs Vital signs: Vital Signs Temperature 36.6 C 07/16/22 09:30 Pulse 81 07/16/22 09:30 Respiratory Rate 18 07/16/22 09:30 Blood Pressure 199/73 H 07/16/22 09:30 Pulse Oximetry 94 07/16/22 09:30 Temperature 36.6 C 07/16/22 09:30 Temperature Source Skin 07/16/22 09:30 Pulse 81 07/16/22 09:30 Respiratory Rate 18 07/16/22 09:30 Respiratory Effort Normal, Non-Labored 07/16/22 09:41 Blood Pressure 199/73 H 07/16/22 09:30 Blood Pressure Position Sitting 07/16/22 09:30 Pulse Oximetry 94 07/16/22 09:30 Oxygen Delivery Method Room Air 07/16/22 09:30 Oxygen Flow Rate 0 07/16/22 09:30 Pain Level 0 07/16/22 09:30 Procedures Epistaxis Control Time Out Performed: Yes Nostril: right Direct Inspection: unable to visualize Clots Removed by: blowing nose Cautery Used: none Device Inserted: hemostatic balloon Patient Tolerated Procedure: well and no complications
--- NOTE | 2022-07-16 11:55 | NUR.NOTE ---
Nursing Note: PT needs follow up next week with [facility] for nose bleeds with rhino rocket in place. Stephanie, ED
[2022-07-16] MEDS: Clindamycin 300 MG CAP PO (12:02)
[2022-07-16 12:32] VITALS: BP 216/79; PULSE 66; RESP 18; O2SAT 97
== END 2022-07-16 12:33 | disposition home or self-care (01) ==
PROVIDERS: Emergency Provider Nurse Practitioner Family; PCP Nurse Practitioner
DX: R04.0 Epistaxis (principal)
CPT/HCPCS: 30901

== ENCOUNTER → 2022-11-03 09:14 | Outpatient (BNVA) | payer MEDICARE, SELFPAY | PROVIDERS: PCP Nurse Practitioner; Visit Provider Nurse Practitioner Adult Health | DX: G30.9 Alzheimer's disease, unspecified (principal); F02.80 Dementia in other diseases classified elsewhere, unspecified severity, without behavioral disturbance, psychotic disturbance, mood disturbance, and anxiety; G47.33 Obstructive sleep apnea (adult) (pediatric); E11.42 Type 2 diabetes mellitus with diabetic polyneuropathy | CPT/HCPCS: 99213 ==

== ENCOUNTER → 2023-02-21 13:16 | Outpatient (BNVA) | payer MEDICARE, SELFPAY | PROVIDERS: PCP Nurse Practitioner; Referring Provider Nurse Practitioner; Visit Provider Student in an Organized Health Care Education/Training Program | DX: J45.909 Unspecified asthma, uncomplicated (principal) | CPT/HCPCS: 99214 ==

== ENCOUNTER → 2023-04-07 10:39 | Outpatient (BNVA) | payer MEDICARE, SELFPAY | PROVIDERS: PCP Nurse Practitioner; Referring Provider Nurse Practitioner; Visit Provider Nurse Practitioner Gerontology | DX: N32.81 Overactive bladder (principal) | CPT/HCPCS: 51798; 99214 ==

== ENCOUNTER → 2023-05-03 09:52 | Outpatient (BNVA) | payer MEDICARE, SELFPAY | PROVIDERS: PCP Nurse Practitioner; Referring Provider Nurse Practitioner; Visit Provider Nurse Practitioner Adult Health | DX: G30.9 Alzheimer's disease, unspecified (principal); F02.80 Dementia in other diseases classified elsewhere, unspecified severity, without behavioral disturbance, psychotic disturbance, mood disturbance, and anxiety | CPT/HCPCS: 99215 ==

== ENCOUNTER → 2023-11-30 14:53 | Outpatient (BNVA) | payer MEDICARE, SELFPAY | PROVIDERS: PCP Nurse Practitioner; Visit Provider Nurse Practitioner Adult Health | DX: G30.9 Alzheimer's disease, unspecified (principal); F02.80 Dementia in other diseases classified elsewhere, unspecified severity, without behavioral disturbance, psychotic disturbance, mood disturbance, and anxiety | CPT/HCPCS: 99213 ==

== ENCOUNTER → 2024-06-13 12:52 | Outpatient (BNVA) | payer MEDICARE, SELFPAY | PROVIDERS: PCP Nurse Practitioner; Referring Provider Nurse Practitioner; Visit Provider Nurse Practitioner Adult Health | DX: G30.9 Alzheimer's disease, unspecified (principal); F02.80 Dementia in other diseases classified elsewhere, unspecified severity, without behavioral disturbance, psychotic disturbance, mood disturbance, and anxiety | CPT/HCPCS: 99214 ==

== ENCOUNTER → 2024-10-04 14:39 | Outpatient (BNVA) | payer MEDICARE, SELFPAY | PROVIDERS: PCP Family Medicine; Referring Provider Family Medicine; Visit Provider Podiatrist | DX: L60.2 Onychogryphosis (principal); E11.42 Type 2 diabetes mellitus with diabetic polyneuropathy; I73.89 Other specified peripheral vascular diseases; I89.0 Lymphedema, not elsewhere classified; R60.0 Localized edema; R09.89 Other specified symptoms and signs involving the circulatory and respiratory systems; R20.8 Other disturbances of skin sensation; I83.93 Asymptomatic varicose veins of bilateral lower extremities; L65.9 Nonscarring hair loss, unspecified; R23.4 Changes in skin texture | CPT/HCPCS: 99213; 11719 ==

== ENCOUNTER → 2024-12-12 10:37 | Outpatient (BNVA) | payer MEDICARE, SELFPAY | PROVIDERS: PCP Nurse Practitioner; Referring Provider Nurse Practitioner; Visit Provider Nurse Practitioner Adult Health | DX: G30.9 Alzheimer's disease, unspecified (principal); F02.80 Dementia in other diseases classified elsewhere, unspecified severity, without behavioral disturbance, psychotic disturbance, mood disturbance, and anxiety; G62.9 Polyneuropathy, unspecified | CPT/HCPCS: 99214 ==